=== PATIENT | male | born 1960 | race Caucasian/White ===

== ENCOUNTER 2020-12-16 12:54 | Outpatient (RCR) | payer MEDICARE, BC, SELFPAY ==
--- NOTE | 2020-12-16 16:13 | PCPTNOTE ---
Patient:Nura North Date of :1960 Wheelchair seating assessment [facility]. The patient has been evaluated for wheelchair seating and recommendations. However he does not qualify for the request power mobility device due to not meeting Medicare requirements. He house is not accessible for a power wheelchair in the house. Nor does he have a desire to use a wheelchair in the house. DME provider present for the assessment. No finding to send due to seating system and assessment not completed. Thank you for the referral. I agree with and certify that the following plan for DME equipment is medically necessary.
== END 2020-12-18 08:21 | disposition home or self-care (01) ==
LOC: ANHPT 12:54
PROVIDERS: PCP Family Medicine; Visit Provider Family Medicine
DX: Z46.89 Encounter for fitting and adjustment of other specified devices (principal); G62.9 Polyneuropathy, unspecified
CPT/HCPCS: 97162

== ENCOUNTER 2022-07-20 12:19 | Outpatient (CLI) | payer MEDICARE, BC, SELFPAY ==
--- NOTE | ~2022-07-20 | MR_ITS ---
EXAMINATION: MR cervical spine wo con DATE: 07/20/2022 13:26 INDICATION: Cervical radiculopathy TECHNIQUE: Magnetic resonance imaging (MRI) of the cervical spine was performed without intravenous c ontrast. Sequences included sagittal T2-weighted FSE, sagittal T2-weighted FS FSE, sagittal T1-weight ed FSE, axial MERGE and axial T2-weighted FSE. COMPARISON: 09/23/2018 FINDINGS: Evaluation the chest a mildly limited by some degree of motion artifact or blurring on multiple seque nces. Straightening of the normal cervical lordosis. Vertebral body heights are normal. Severe disc height loss and with associated mild fibrovascular degenerative endplate changes at C6-C7. Mild disc height loss at C4-C5 and C5-C6. Bone marrow signal is otherwise normal. Unchanged small focus of incr eased T2 signal at the right side of the cord at C4-C5 consistent with myelomalacia. No new cord lesi ons identified. Cervical soft tissues are unremarkable. The following disc levels are specifically di scussed: C2-C3: The disc does not extend beyond the endplate margin. There is mild bilateral uncovertebral primo nt osteoarthritis. There is mild bilateral facet joint osteoarthritis. There is no neural foraminal s tenosis. There is no central canal stenosis. C3-C4: Disc is minimally bulging at the left and right foraminal zones. There is moderate bilateral u ncovertebral joint osteoarthritis. There is mild left and moderate right facet joint osteoarthritis. There is mild bilateral neural foraminal stenosis. There is no central canal stenosis. C4-C5: Disc is bulging. There is severe bilateral uncovertebral joint osteoarthritis. There is mild l eft and moderate right facet joint osteoarthritis. There is mild bilateral neural foraminal stenosis. There is mild central canal stenosis. C5-C6: Disc is bulging. There is mild left and moderate right uncovertebral joint osteoarthritis. The re is mild to moderate bilateral facet joint osteoarthritis. There is moderate bilateral neural kavita inal stenosis. There is mild central canal stenosis. C6-C7: Disc is bulging. There is severe bilateral uncovertebral joint osteoarthritis. There is mild r ight and mild to moderate left facet joint osteoarthritis. There is moderate bilateral neural foramin al stenosis. There is mild central canal stenosis. C7-T1: The disc does not extend beyond the endplate margin. There is no uncovertebral joint osteoarth ritis. There is left and severe right facet joint osteoarthritis. There is mild bilateral neural fora manfred stenosis. There is no central canal stenosis. IMPRESSION: 1. Minimal progression of severe spondylosis with unchanged small focus of myelomalacia at the right side of the cord at C4-C5. Reviewed, dictated and finalized at location A. IMPRESSION: 1. Minimal progression of severe spondylosis with unchanged small focus of myel omalacia at the right side of the cord at C4-C5.
== END 2022-07-20 12:20 | disposition home or self-care (01) ==
PROVIDERS: PCP Family Medicine; Visit Provider Family Medicine
DX: M54.12 Radiculopathy, cervical region (principal); M43.02 Spondylolysis, cervical region
CPT/HCPCS: 72141

== ENCOUNTER 2022-09-15 11:13 | Observation (INO) | payer MEDICARE, BC, SELFPAY ==
[2022-09-15] VITALS (14 sets, daily range): BP systolic 117–199; BP diastolic 67–124; PULSE 63–85; RESP 12–22; TEMP 36.3–37.2; O2SAT 96–100; BMI 31.3
--- NOTE | ~2022-09-15 | XR_ITS ---
EXAMINATION: XR chest 1V portable Exam Date/Time: 09/15/2022 14:10 CDT HISTORY: weakness Comparison: 10/11/2004. RESULT: Lines, tubes, and devices: None. Lungs and pleura: Marked rightward rotation. No focal consolidation, large effusion, or large pneumo thorax. Cardiomediastinal silhouette: Grossly stable. Other: No acute osseous or upper abdominal finding. IMPRESSION: Exam limited by significant rightward rotation. Within that constraint, no acute cardiopulmonary proc ess is detected. Reviewed, dictated and finalized at location K. IMPRESSION: Exam limited by significant rightward rotation. Within that constraint, no acut e cardiopulmonary process is detected.
--- NOTE | 2022-09-15 13:00 | ECG_ITS ---
Measurements Intervals [place] Rate: 59 P: 27 [place]: 208 QRS: 68 QRSD: 115 T: 55 QT: 447 QTc: 445 Interpretive Statements SINUS BRADYCARDIA MODERATE INTRAVENTRICULAR CONDUCTION DELAY [110+ ms QRS DURATION] NO PREVIOUS ECG AVAILABLE FOR COMPARISON Electronically Signed On 09-15-2022 16:18:45 CDT by Martha Kelley M.D.
--- NOTE | 2022-09-15 13:07 | ED.WEAKNESS ---
HPI - Weakness General Chief complaint: Weakness Stated complaint: weakness/ uti Time Seen by Provider: 09/15/22 12:00 History of Present Illness HPI Narrative: Patient is a 62-year-old male with a history of hypertension, hyperlipidemia, depression presenting with generalized weakness. Patient's family members at bedside and states that the patient lives alone. States that he has been increasingly generally weak for the last several days. States that he was diagnosed with a UTI last week and he has now taken about 4 days of ciprofloxacin without improvement. States that he continues to urinate frequently. States that he has been struggling to get up to even use the restroom. States that he has not eaten for 2 days. Currently, the patient says that he feels generally exhausted. He denies any current pain. Related Data Home Medications Medication Instructions Recorded Confirmed alprazolam 0.5 mg tablet 0.5 mg PO TID PRN Anxiety 09/15/22 09/15/22 atenolol 25 mg tablet 25 mg PO DAILY 09/15/22 09/15/22 losartan 100 mg tablet 100 mg PO DAILY 09/15/22 09/15/22 paroxetine HCl 30 mg tablet 30 mg PO DAILY 09/15/22 09/15/22 simvastatin 20 mg tablet 20 mg PO DAILY 09/15/22 09/15/22 trazodone 150 mg tablet 150 mg PO HS 09/15/22 09/15/22 Allergies Allergy/AdvReac Type Severity Reaction Status Date / Time allopurinol Allergy Unknown Rash Verified 09/15/22 12:15 carbamazepine Allergy Unknown Rash Verified 09/15/22 12:15 cyclobenzaprine Allergy Unknown Rash Verified 09/15/22 12:15 diclofenac Allergy Unknown Rash Verified 09/15/22 12:15 Review of Systems Review of Systems: All systems reviewed & are unremarkable except as noted in HPI and below PMFSH Past Medical History Medical History (Updated 09/15/22 @ 21:42 by Jyothi Moy NP) Depression with anxiety Gout History of GI bleed History of meningitis Hyperlipidemia Hypertension Legally blind Left eye YOSEPH on CPAP Peripheral neuropathy Surgical History Surgical History (Updated 09/15/22 @ 21:29 by Jyothi Moy NP) H/O cataract extraction H/O hand surgery H/O inguinal hernia repair H/O Spinal surgery History of tonsillectomy Family History Family History Mother Patient's mother is in good health Father Patient's father is Grandparent Cerebrovascular accident Family history of malignant neoplasm Family history of heart disease in male family member before age 55 Other Diabetes mellitus Family history of alcoholism Family history of arthritis Family history of gout Social History Social History (Updated 09/15/22 @ 21:34 by Jyothi Moy NP) Social History: The patient lives home alone. He is a former smoker. The patient used to be heavy smoker smoking up to 2-3 packs of cigarettes for several years. The patient was known to drink 8-10 beers a day. He is retired and disabled in 1979. 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 Code status full code Smoking packs per day: 2 Smoking cigarettes per day: 40.0 Smoking status: Former smoker Second hand tobacco smoke exposure: No Smoking end date: 03/29/04 Alcohol intake: never Substance use: current Substance use type: painkillers Lack of Transportation: No Lack of Food: Never True Current Housing: Decline to Answer Concerned About Future Housing: Decline to Answer Difficulty Paying Gas/Electric Bills: Decline to Answer Difficulty Paying for Meds: Decline to Answer Currently Unemployed: Decline to Answer Education: Decline to Answer Difficulty w/ Childcare or Family Care: Decline to Answer Spiritual care concerns: No Exam Narrative: GENERAL: Chronically ill-appearing, no acute distress, pleasant and cooperative HEAD: Normocephalic, atraumatic. EYES: PERRLA and EOMI. ENT: Nares clear, no rhinorrhea or epistaxis. Mucous membranes moist. NECK: Supple. CHEST:
[2022-09-15 13:16] LABS: Appearance Urine Clear (Clear); Bacteria Urine None Seen /hpf; Bilirubin Urine Negative (Negative); Blood Urine 3+ (Negative); Color Urine Yellow (Yellow); Glucose Urine UA Negative (Negative); Ketones Urine Negative (Negative); Leukocyte Esterase Ur Negative LEU/UL (Negative); Nitrate Urine Negative (Negative); Non Pathogenic Casts 0-2; Protein Urine 2+ mg/dL (Negative); Specific Grav Ur 1.004 (1.001-1.035); Squamous Epithelial Cell Urine None seen /hpf (Few); Urobilinogen Urine 0.2 mg/dL (<2.0); WBC Urine 0-5 /hpf; pH Urine 7.5 (5.0-9.0)
[2022-09-15 13:18] LABS: Add Urine Microscopic? YES
[2022-09-15 14:04] LABS: Basophils Percent Auto 0.2 % (0.2-1.2); Eosinophils Absolute Auto 0.4 K/mm3 (0-0.3); Hematocrit 38.4 % (42.0-52.0); Hemoglobin 12.3 g/dL (14.0-18.0); Immature Granulocyte Absolute 0.02 K/mm3 (0.00-0.031); Immature Granulocyte Percent A 0.2 % (0-0.5); Lymphocytes Absolute Auto 1.59 K/mm3 (0.9-3.2); Lymphocytes Percent Auto 19.7 % (18.3-44.2); Mean Corpuscular Hemoglobin 28.5 pg (26-34); Mean Corpuscular Volume 88.9 fl (80-100); Mean Platelet Volume 9.5 fl (7.4-10.4); Monocytes Absolute Auto 0.7 K/mm3 (0.1-0.6); Neutrophils Absolute Auto 5.4 K/mm3 (1.3-6.7); Neutrophils Percent Auto 66.9 % (45.5-73.1); Platelet Count Result 231 k/mm3 (150-375); Red Blood Count 4.32 M/mm3 (4.6-6.20); Red Cell Distribution Width 14.2 % (11.5-14.5); White Blood Count 8.1 K/mm3 (4.5-10.0)
[2022-09-15 14:15] LABS: Alanine Aminotransferase 13 U/L (6-50); Albumin Level 4.4 g/dL (3.5-5.1); Alkaline Phosphatase 91 U/L (38-126); Anion Gap 10 mmol/L (8-16); Aspartate Amino Transferase 24 U/L (17-59); Bilirubin,Total 0.9 mg/dL (0.2-1.3); Blood Urea Nitrogen 20 mg/dL (9-20); Calcium 9.6 mg/dL (8.4-10.2); Carbon Dioxide 32 mmol/L (22-30); Chloride 99 mmol/L (98-107); Estimated Glomerular Filt Rate 27; Glucose 100 mg/dL (65-110); Lipase 271 U/L (23-300); Magnesium 1.5 mg/dL (1.6-2.3); Potassium 3.6 mmol/L (3.4-5.0); Sodium 141 mmol/L (137-145)
[2022-09-15 14:26] LABS: NT Pro B Type Natriuretic Pept 2370 pg/mL (19.9-100); Troponin I < 0.012 ng/mL (0.000-0.034)
[2022-09-15] MEDS: SODIUM CHLORIDE 0.9% IV 1,000 ML 999 ML IV CONT (16:00)
[2022-09-15 16:16] LABS: Creatine Kinase 31 U/L (55-170)
--- NOTE | 2022-09-15 17:13 | ADMGEN ---
This patient, Nura North, was admitted to Medical Room 345-. Patient/family oriented to hospital policies and general routines including ID bracelet, bed and alarms, visiting hours, pain management, procedures, bathroom and other care routines, personal items, smoking policy, room service/diet, and visiting hours. Information on how to activate the Rapid Response Team has been discussed. Patient/Family are encouraged to report perceived risks to care and to ask questions if they do not understand what they are told or what they should do.
[2022-09-15] MEDS: hydrALAZINE HCL 20 MG/ML VIAL 10 MG IV PUSH (17:40)
--- NOTE | 2022-09-15 17:56 | PM.IMHP ---
H&P: HPI History of Present Illness Date/Time: 09/15/22 17:56 Chief Complaint: Weakness Narrative: This is a 62-year-old male patient who has a history of hypertension and hyperlipidemia as well as depression. The patient came to the emergency room with complaints of generalized weakness. The family members stated that he lives home alone. He has been increasingly generally weak for the last several days. The patient was diagnosed with the UTI last week and has taken 4 days of ciprofloxacin without improvement. The patient has frequent urination. The patient has been struggling to get up from the restroom. Patient is eating very little for 2 days. He said he is just exhausted has no current pain. The patient is falling asleep during the interview and is not giving me much information. His H&H is 12.3 and 38.4 which is improved from 2019. His creatinine is 2.4 with this last read here on 06/11/2018 which was normal. Magnesium is 1.5 troponins are negative x2. His urine no longer shows a UTI. The patient is being admitted to observation status on the date of service of 09/15/2022. Review of Systems Review of Systems: All systems reviewed & are unremarkable except as noted in HPI and below Constitutional: Constitutional: Reports as per HPI and Reports no additional constitutional complaints Eyes: Eyes: Reports as per HPI and Reports no additional eye complaints ENT: Reports system reviewed and no additional complaints, except as documented and Reports Normal hearing present Cardiovascular: Cardiovascular: Reports no additional cardiovascular complaints Respiratory: Respiratory: Reports no additional respiratory complaints and Reports no additional respiratory complaints Gastrointestinal: Gastrointestinal: Reports as per HPI and Reports no additional gastrointestinal complaints Musculoskeletal: Musculoskeletal: Reports no additional musculoskeletal complaints Integumentary/Breasts: Skin/Breast: Reports system reviewed and no additional complaints, except as docu and Reports as per HPI Neurologic: Reports system reviewed and no additional complaints, except as documented, Reports as per HPI and Reports Normal hearing present Psychiatric: Psychiatric: Reports no additional psychiatric complaints and Reports as per HPI Endocrine: Endocrine: Reports no additional endocrine complaints Hematologic/Lymphatic: Hematologic/Lymphatic: Reports no additional hematologic/lymphatic complaints Allergic/Immunologic: Allergic/Immunologic: Reports no additional allergic/immunologic complaints FOR[facility] Past Medical History Medical History (Updated 09/15/22 @ 21:42 by Jyothi Moy NP) Depression with anxiety Gout History of GI bleed History of meningitis Hyperlipidemia Hypertension Legally blind Left eye YOSEPH on CPAP Peripheral neuropathy Surgical History Surgical History (Updated 09/15/22 @ 21:29 by Jyothi Moy NP) H/O cataract extraction H/O hand surgery H/O inguinal hernia repair H/O Spinal surgery History of tonsillectomy Family History Family History Mother Patient's mother is in good health Father Patient's father is Grandparent Cerebrovascular accident Family history of malignant neoplasm Family history of heart disease in male family member before age 55 Other Diabetes mellitus Family history of alcoholism Family history of arthritis Family history of gout Social History Social History (Updated 09/15/22 @ 21:34 by Jyothi Moy NP) Social History: The patient lives home alone. He is a former smoker. The patient used to be heavy smoker smoking up to 2-3 packs of cigarettes for several years. The patient was known to drink 8-10 beers a day. He is retired and disabled in 1979. His mother Zita leonard is his linesperson. Code status full code Smoking packs per day: 2 Smoking cigarettes per day:
[2022-09-15 18:11] LABS: Troponin I < 0.012 ng/mL (0.000-0.034)
[2022-09-15 21:46] LABS: Anion Gap 12 mmol/L (8-16); Blood Urea Nitrogen 20 mg/dL (9-20); Calcium 9.4 mg/dL (8.4-10.2); Carbon Dioxide 30 mmol/L (22-30); Chloride 102 mmol/L (98-107); Estimated CRCL calculation 34 ml/min; Estimated Glomerular Filt Rate 29; Glucose 105 mg/dL (65-110); Potassium 3.4 mmol/L (3.4-5.0); Sodium 144 mmol/L (137-145)
[2022-09-15] MEDS: traZODone HCL 50 MG TABLET 150 MG PO (21:53)
[2022-09-15] MEDS: SODIUM CHLORIDE 0.9% IV 1,000 ML 100 ML IV CONT (21:53)
[2022-09-15] MEDS: MAGNESIUM SULF 2 GM/WATER 50ML 2 GM/50 ML BAG IVPB (21:57)
[2022-09-15 22:02] LABS: Troponin I < 0.012 ng/mL (0.000-0.034)
[2022-09-16] MEDS: ALPRAZolam (*CRX) 0.5 MG TABLET PO (01:48)
[2022-09-16 05:35] VITALS: BP 165/83; PULSE 85; RESP 18; TEMP 37.4; O2SAT 97
[2022-09-16 06:03] LABS: Basophils Percent Auto 0.4 % (0.2-1.2); Eosinophils Absolute Auto 0.4 K/mm3 (0-0.3); Eosinophils Percent Auto 3.2 % (0-4.4); Hematocrit 39.1 % (42.0-52.0); Hemoglobin 12.6 g/dL (14.0-18.0); Immature Granulocyte Absolute 0.05 K/mm3 (0.00-0.031); Immature Granulocyte Percent A 0.4 % (0-0.5); Lymphocytes Percent Auto 12.3 % (18.3-44.2); Mean Corpuscular HGB Conc 32.2 g/dl (32-36); Mean Corpuscular Hemoglobin 28.3 pg (26-34); Mean Corpuscular Volume 87.9 fl (80-100); Mean Platelet Volume 9.7 fl (7.4-10.4); Monocytes Absolute Auto 0.8 K/mm3 (0.1-0.6); Monocytes Percent Auto 7.4 % (2.6-8.5); Neutrophils Absolute Auto 8.7 K/mm3 (1.3-6.7); Neutrophils Percent Auto 76.3 % (45.5-73.1); Platelet Count Result 252 k/mm3 (150-375); Red Blood Count 4.45 M/mm3 (4.6-6.20); White Blood Count 11.4 K/mm3 (4.5-10.0)
[2022-09-16 06:12] LABS: Lactic Acid Reflex 0.9 mmol/L (0.7-2.0)
[2022-09-16 06:13] LABS: Alanine Aminotransferase 12 U/L (6-50); Albumin Level 4.4 g/dL (3.5-5.1); Alkaline Phosphatase 99 U/L (38-126); Anion Gap 11 mmol/L (8-16); Aspartate Amino Transferase 26 U/L (17-59); Blood Urea Nitrogen 18 mg/dL (9-20); Calcium 9.1 mg/dL (8.4-10.2); Carbon Dioxide 27 mmol/L (22-30); Chloride 105 mmol/L (98-107); Estimated CRCL calculation 39 ml/min; Estimated Glomerular Filt Rate 34; Glucose 103 mg/dL (65-110); Magnesium 1.9 mg/dL (1.6-2.3); Potassium 3.3 mmol/L (3.4-5.0); Sodium 143 mmol/L (137-145)
[2022-09-16 06:57] LABS: Thyroid Stimulating Hormone Reflex 0.544 uIU/mL (0.465-4.68)
--- NOTE | 2022-09-16 08:02 | PC.NURSE ---
[id number] - pt continuing to set off bed alarm, saying I just have to get up. I have to get out of here. In report from curbstone setter, staff attempted to get pt to a commode x3 people with no success. RN and tech educated pt that he is a high fall risk and cannot be getting up out of bed by himself. RN stated that therapy is ordered and should be the one to get the pt out of bed to let us know how to safely ambulate pt. Pt A&O x3 but is not understanding this information as every couple minutes he is attempting to get up and leave. Pt bed alarm is set on zone 2. RN called hosptialist, shasta, and notified director, yakov. [phone] - RN called pt mother, Zita, via phone regarding this situation. Zita stated she is on her way to the hospital to sit with the pt and try to talk with him about this.
--- NOTE | 2022-09-18 07:54 | PM.DS ---
DS: Admitting Diagnosis Discharge Date 09/16/22 Admitting Diagnosis BOAZ DS: Summary Hospital Course Hospital Course: Date of service: 09/16/22 The patient signed out against medical advice on 09/16/22. Spoke with RN at [phone] to inform patient requesting to sign out AMA. Left with his mother. Patient departed prior to my evaluation. Time Spent with Patient Time attestation: Total time spent providing and/or coordinating discharge services: Discharge Plan Discharge Consulting providers: Jyothi Moy; Raphael Leach; Martha Kelley Patient Disposition: Left Against Medical Advice Discharge Medications: No Action atenolol 25 mg tablet 25 mg PO DAILY alprazolam 0.5 mg tablet 0.5 mg PO TID PRN (Reason: Anxiety) paroxetine HCl 30 mg tablet 30 mg PO DAILY simvastatin 20 mg tablet 20 mg PO DAILY trazodone 150 mg tablet 150 mg PO HS losartan 100 mg tablet 100 mg PO DAILY Date of admission: 09/15/22 15:50 Primary Care Provider: Rylee,Evelio Hidalgo Admitting Provider: Aryan Link Attending physician on admission: Melita Ewing Condition: Stable
== END 2022-09-16 08:54 | disposition left against medical advice (07) ==
LOC: ANHED 12:28 → ANH3MED 16:39
PROVIDERS: Nurse Practitioner; Admitting Provider Chiropractor; Emergency Provider Emergency Medicine; PCP Family Medicine; Visit Provider Physician Assistant
DX: N17.9 Acute kidney failure, unspecified (principal); Z53.29 Procedure and treatment not carried out because of patient's decision for other reasons; R53.1 Weakness; R00.1 Bradycardia, unspecified; R35.0 Frequency of micturition; I10 Essential (primary) hypertension; E78.5 Hyperlipidemia, unspecified; F41.8 Other specified anxiety disorders; R79.89 Other specified abnormal findings of blood chemistry; F10.90 Alcohol use, unspecified, uncomplicated; I44.0 Atrioventricular block, first degree; R63.0 Anorexia; G47.33 Obstructive sleep apnea (adult) (pediatric); G62.9 Polyneuropathy, unspecified; Z68.31 Body mass index [BMI] 31.0-31.9, adult; Z87.891 Personal history of nicotine dependence; Z79.899 Other long term (current) drug therapy
CPT/HCPCS: 36415; 71045; 80048; 80053; 81001; 82550; 83605; 83690; 83735; 83880; 84443; 84484; 85025; 93005; 96374; 96375; 99285; A9270; G0378; J0360; J3475; J7030

== ENCOUNTER 2022-10-05 14:02 | Outpatient (CLI) | payer MEDICARE, BC, SELFPAY ==
--- NOTE | ~2022-10-05 | CT_ITS ---
EXAMINATION: CT cervical spine wo con DATE: 10/05/2022 14:36 INDICATION: Cervical stenosis of spinal canal. TECHNIQUE: Computed tomography (CT) of the cervical spine was performed without intravenous contrast. Automated exposure control and iterative reconstruction technique were employed. The dose-length pro duct was 594.24 mGy-cm. COMPARISON: CT cervical spine 05/28/2018 FINDINGS: There is 7 degrees levocurvature of cervical spine. There is mild kyphosis of cervical spin e. Vertebral body heights are normal. There is mildly decreased disc height at C4-C5 and C5-C6 and se verely decreased disc height at C6-C7. Osseous central spinal canal is developmentally small from C4 to C7. The following disc levels are specifically discussed: C2-C3: There is mild bilateral uncovertebral joint osteoarthritis. There is mild bilateral facet join t osteoarthritis. There is no neural foraminal stenosis. There is no central canal stenosis. C3-C4: There is mild bilateral uncovertebral joint osteoarthritis. There is no facet joint osteoarthr itis. There is mild bilateral neural foraminal stenosis. There is no central canal stenosis. C4-C5: There is mild bilateral uncovertebral joint osteoarthritis. There is severe right and moderate left facet joint osteoarthritis. There is mild right neural foraminal stenosis. There is mild centra l canal stenosis. C5-C6: There is mild bilateral uncovertebral joint osteoarthritis. There is mild bilateral facet join t osteoarthritis. There is mild right neural foraminal stenosis. There is moderate central canal sten osis. C6-C7: There is severe bilateral uncovertebral joint osteoarthritis. There is mild bilateral facet lavinia int osteoarthritis. There is mild bilateral neural foraminal stenosis. There is moderate central amy l stenosis. C7-T1: There is no uncovertebral joint osteoarthritis. There is severe bilateral facet joint osteoart hritis. There is mild bilateral neural foraminal stenosis. There is no central canal stenosis. IMPRESSION: 1. Severe cervical spondylosis, stable from 05/28/18. Reviewed, dictated and finalized at location E.
== END 2022-10-05 14:03 | disposition home or self-care (01) ==
PROVIDERS: PCP Family Medicine; Visit Provider Nurse Practitioner Adult Health
DX: M48.02 Spinal stenosis, cervical region (principal); G95.9 Disease of spinal cord, unspecified; M47.892 Other spondylosis, cervical region
CPT/HCPCS: 72125

== ENCOUNTER 2023-03-05 08:00 | Outpatient (CLI) | payer MEDICARE, BC, SELFPAY ==
--- NOTE | ~2023-03-05 | XR_ITS ---
EXAMINATION: XR lg joint inject/asp w image DATE: 03/05/2023 09:53 INDICATION: Left hip arthritis TECHNIQUE: A time-out was performed to verify the patient's name, date of , and procedure to b e performed. The procedure including the risks, benefits, and alternatives was discussed with the pat ient. Risks discussed included bleeding and infection. The patient understood the risks and agreed to proceed. The skin overlying the left hip joint was prepped and draped in usual sterile fashion. An esthetic was administered with 1% lidocaine subcutaneously. A 22 G needle was advanced under fluoros copic guidance into the joint. Injection of 1 mL of Omnipaque 240 confirmed intra-articular position of the needle. Subsequently, injectate consisting of 3 mL of a 2:1 mixture of 0.5% Sensorcaine: 80 mg/mL Depo-Medrol for a total dosage of 80 mg Depo-Medrol was instilled. Washout of contrast was seen confirming intra-articular administration. The needle was removed and the entry site was cleaned and dressed. There were no immediate complications. Fluoroscopy exposure time was 0.3 minutes. The tota l number of images was 3. FINDINGS: Real-time fluoroscopy demonstrates the needle in the left hip joint. Patient's pain prior t o procedure:01/05. Patient's pain following the procedure: 11/05. IMPRESSION: 1. Successful left hip joint injection of local anesthetic and steroid with minimal decrease in the p atient's presenting pain. Reviewed, dictated and finalized at location A. [employer] IMPRESSION: 1. Successful left hip joint injection of local anesthetic and steroid with min imal decrease in the patient's presenting pain.
== END 2023-03-05 08:01 | disposition home or self-care (01) ==
PROVIDERS: PCP Family Medicine; Visit Provider Orthopaedic Surgery
DX: M16.12 Unilateral primary osteoarthritis, left hip (principal)
CPT/HCPCS: 20610; 77002; J1040; Q9966

== ENCOUNTER 2023-03-08 13:35 | Inpatient (IN) | payer MEDICARE, BC, SELFPAY ==
[2023-03-08] VITALS (28 sets, daily range): BP systolic 148–188; BP diastolic 73–89; PULSE 50–69; RESP 13–18; TEMP 36.4–36.6; O2SAT 98–100; BMI 40.3
--- NOTE | ~2023-03-08 | CT_ITS ---
EXAMINATION: CT abdomen pelvis wo con DATE: 03/10/2023 12:48 INDICATION: Hematuria. TECHNIQUE: Computed tomography (CT) of the abdomen and pelvis was performed without intravenous contr ast. Automated exposure control and iterative reconstruction technique were employed. The dose-length product was 1481.08 mGy-cm. COMPARISON: None. FINDINGS: The visualized portions of the lung bases demonstrate minimal atelectasis on the right. No pleural effusion. Cardiomegaly is noted. There are coronary artery calcifications. No pericardial eff usion. The liver, spleen, gallbladder, pancreas, and adrenal glands are normal. There is wall thicken ing of the proximal duodenum with surrounding fat stranding. There is cortical thinning of the kidney s. There is moderate bilateral hydronephrosis and hydroureter. The bladder is decompressed by a Durant catheter. There is diffuse bladder wall thickening. There is fat stranding around the bladder. The p rostate is mildly enlarged. There is liquid stool in the colon suggesting diarrhea. The appendix is n ormal. There are no dilated loops of bowel. There is calcified atherosclerosis of the aorta and many of the other arteries. There are no pathologically enlarged lymph nodes. There is prominent fat in le ft inguinal canal that may be a hernia. There is no free intraperitoneal fluid. There are widespread arterial calcifications. There is mild chronic height loss of multiple vertebral bodies. There is sev ere lumbar spondylosis and moderate thoracic spondylosis. There are changes of posterior fusion proce dure from L3 to L5. IMPRESSION: 1. Moderate bilateral hydronephrosis and hydroureter. Cortical thinning of the kidneys. 2. Diffuse bladder wall thickening, which may be secondary to chronic outlet obstruction, cystitis, o r neurogenic bladder. 3. Duodenal wall thickening with surrounding fat stranding, consistent with duodenitis. Reviewed, dictated and finalized at location A. FICATION OPERATOR HELPER IMPRESSION: 1. Moderate bilateral hydronephrosis and hydroureter. Cortical thinning of the kidneys. 2. Diffuse bladder wall thickening, which may be secondary to chronic outlet ob struction, cystitis, or neurogenic bladder. 3. Duodenal wall thickening with surrounding fat stranding, consistent with duo denitis.
--- NOTE | ~2023-03-08 | US_ITS ---
EXAMINATION: US renal BI DATE: 03/12/2023 14:01 INDICATION: Hydronephrosis TECHNIQUE: Multiple grayscale and Doppler ultrasound images of the kidneys were obtained. COMPARISON: CT, 03/10/2023 FINDINGS: The right kidney measures 9.4 x 4.8 x 4.2 cm. The left kidney measures 11.5 x 4.6 x 4.7 cm. The kidneys demonstrate normal parenchymal echogenicity. There is mild cortical thinning of the kidn eys. There is mild left hydronephrosis. The bladder is decompressed by Durant catheter. There is uncha nged circumferential wall thickening of the urinary bladder. IMPRESSION: 1. Mild hydronephrosis of the left kidney. 2. Diffuse wall thickening of the urinary bladder which could reflect cystitis, chronic outlet obstru ction, or possibly neurogenic bladder. Reviewed, dictated and finalized at location B. SPECIALIST IMPRESSION: 1. Mild hydronephrosis of the left kidney. 2. Diffuse wall thickening of the urinary bladder which could reflect cystitis, chronic outlet obstruction, or possibly neurogenic bladder.
--- NOTE | 2023-03-08 13:40 | ECG_ITS ---
Measurements Intervals [place] Rate: 54 P: 36 [place]: 208 QRS: 66 QRSD: 112 T: 55 QT: 460 QTc: 440 Interpretive Statements SINUS BRADYCARDIA MODERATE INTRAVENTRICULAR CONDUCTION DELAY [110+ ms QRS DURATION] BORDERLINE ECG COMPARED TO ECG 09/15/2022 11:19:27 NO SIGNIFICANT CHANGES Electronically Signed On 03-08-2023 14:58:52 WOOL CLEANER by Aryan Zeng M.D.
[2023-03-08 14:08] LABS: Appearance Urine Clear (Clear); Bacteria Urine None Seen /hpf; Basophils Percent Auto 0.1 % (0.2-1.2); Bilirubin Urine Negative (Negative); Blood Urine Trace (Negative); Color Urine Yellow (Yellow); Eosinophils Absolute Auto 0.1 K/mm3 (0-0.3); Eosinophils Percent Auto 0.5 % (0-4.4); Glucose Urine UA Negative (Negative); Hematocrit 32.9 % (42.0-52.0); Hemoglobin 10.6 g/dL (14.0-18.0); Immature Granulocyte Absolute 0.05 K/mm3 (0.00-0.031); Immature Granulocyte Percent A 0.5 % (0-0.5); Ketones Urine Negative (Negative); Leukocyte Esterase Ur Trace LEU/UL (Negative); Lymphocytes Absolute Auto 1.88 K/mm3 (0.9-3.2); Lymphocytes Percent Auto 18.7 % (18.3-44.2); Mean Corpuscular HGB Conc 32.2 g/dl (32-36); Mean Corpuscular Hemoglobin 28.9 pg (26-34); Mean Corpuscular Volume 89.6 fl (80-100); Mean Platelet Volume 10.9 fl (7.4-10.4); Monocytes Absolute Auto 1.1 K/mm3 (0.1-0.6); Monocytes Percent Auto 10.6 % (2.6-8.5); Neutrophils Percent Auto 69.6 % (45.5-73.1); Nitrate Urine Negative (Negative); Non Pathogenic Casts 0-2; Platelet Count Result 215 k/mm3 (150-375); Protein Urine Negative (Negative); RBC Urine 0-2 /hpf (0-2); Red Blood Count 3.67 M/mm3 (4.6-6.20); Red Cell Distribution Width 14.5 % (11.5-14.5); Specific Grav Ur 1.005 (1.001-1.035); Squamous Epithelial Cell Urine None seen /hpf (Few); Urobilinogen Urine 0.2 mg/dL (<2.0); WBC Urine 0-5 /hpf; pH Urine 5.5 (5.0-9.0)
[2023-03-08 14:13] LABS: Add Urine Microscopic? YES
[2023-03-08 14:15] LABS: Alanine Aminotransferase 16 U/L (6-50); Alkaline Phosphatase 85 U/L (38-126); Anion Gap 9 mmol/L (8-16); Aspartate Amino Transferase 23 U/L (17-59); Bilirubin,Total 0.7 mg/dL (0.2-1.3); Blood Urea Nitrogen 31 mg/dL (9-20); Calcium 8.6 mg/dL (8.4-10.2); Carbon Dioxide 22 mmol/L (22-30); Chloride 97 mmol/L (98-107); Estimated CRCL calculation 47 ml/min; Estimated Glomerular Filt Rate 36; Glucose 89 mg/dL (65-110); Lactic Acid Reflex 1.4 mmol/L (0.7-2.0); Potassium 4.6 mmol/L (3.4-5.0); Sodium 128 mmol/L (137-145)
[2023-03-08 14:27] LABS: Acetaminophen 172 ug/mL (10-30); Ethanol 51 mg/dL (<10); Salicylate < 1.0 mg/dL (2-20)
--- NOTE | 2023-03-08 14:29 | PC.NURSE ---
Pts Poison Control case #[id number]
[2023-03-08 14:30] LABS: Amphetamine Screen Urine Negative (Negative); Barbiturate Screen Urine Negative (Negative); Benzodiazepines Screen Urine Positive (Negative); Cannabinoid Screen Urine Negative (Negative); Cocaine Screen Urine Negative (Negative); Methadone Screen Urine Negative (Negative); Opiate Screen Urine Negative (Negative); Phencyclidine Screen Urine Negative (Negative)
--- NOTE | 2023-03-08 14:36 | ED.OVERDOSE ---
HPI - Overdose General Chief Complaint: Overdose <Kimber King PA-C - Last Filed: 03/08/23 17:00> Stated Complaint: Tylenol OD <Kimber King PA-C - Last Filed: 03/08/23 17:00> Time Seen by Provider: 03/08/23 13:41 <Kimber King PA-C - Last Filed: 03/08/23 17:00> Source: patient <MARK ANTHONY Wetzel Last Filed: 03/08/23 17:00> Mode of arrival: ambulatory <Kimber King PA-C - Last Filed: 03/08/23 17:00> Limitations: no limitations <Kimber King PA-C - Last Filed: 03/08/23 17:00> History of Present Illness HPI Narrative: This is a 63-year-old male that presents to the emergency department for overdose. Reports about 2 hours prior to arrival he took about 100 extra strength Tylenol tablets. Reports he was doing this to kill himself. Reports recent stressors lately and he wants to go to sleep and not wake up. He called his brother who called EMS. Denies any current symptoms. <Kimber King PA-C - Last Filed: 03/08/23 17:00> Related Data Home Medications: Home Medications Medication Instructions Recorded Confirmed alprazolam 0.5 mg tablet 0.5 mg PO TID PRN Anxiety 09/15/22 02/26/23 atenolol 25 mg tablet 25 mg PO DAILY 09/15/22 02/26/23 losartan 100 mg tablet 100 mg PO DAILY 09/15/22 02/26/23 paroxetine HCl 30 mg tablet 30 mg PO DAILY 09/15/22 02/26/23 simvastatin 20 mg tablet 20 mg PO DAILY 09/15/22 02/26/23 trazodone 150 mg tablet 150 mg PO HS 09/15/22 02/26/23 <MARK ANTHONY Wetzel Last Filed: 03/08/23 17:00> Allergies/Adverse Reactions: Allergies Allergy/AdvReac Type Severity Reaction Status Date / Time allopurinol Allergy Unknown Rash Verified 02/25/23 12:41 carbamazepine Allergy Unknown Rash Verified 02/25/23 12:41 cyclobenzaprine Allergy Unknown Rash Verified 02/25/23 12:41 diclofenac Allergy Unknown Rash Verified 02/25/23 12:41 <Kimber King PA-C - Last Filed: 03/08/23 17:00> Review of Systems Review of Systems: CONSTITUTIONAL: Denies fever CARDIOVASCULAR: Denies chest pain GASTROINTESTINAL: Denies abdominal pain PSYCHIATRIC: Reports depression. <Kimber King PA-C - Last Filed: 03/08/23 17:00> All systems reviewed & are unremarkable except as noted in HPI and below <Kimber King PA-C - Last Filed: 03/08/23 17:00> [facility] Past Medical History Medical History: Medical History Depression with anxiety Gout History of GI bleed History of meningitis Hyperlipidemia Hypertension Legally blind Left eye YOSEPH on CPAP Peripheral neuropathy <Kimber King PA-C - Last Filed: 03/08/23 17:00> Surgical History Surgical History: Surgical History H/O cataract extraction H/O hand surgery H/O inguinal hernia repair H/O Spinal surgery History of tonsillectomy <Kimber King PA-C - Last Filed: 03/08/23 17:00> Family History Family History: Family History (Updated 03/04/23 @ 10:57 by Ghazal Lim CMA) Mother Patient's mother is in good health Father Patient's father is Grandparent Cerebrovascular accident Family history of malignant neoplasm Family history of heart disease in male family member before age 55 Unknown Hypertension Lung disease Hyperlipidemia Cancer Other Diabetes mellitus Family history of alcoholism Family history of arthritis Family history of gout <Kimber King PA-C - Last Filed: 03/08/23 17:00> Social History Social History: Social History (Updated 03/04/23 @ 10:58 by Ghazal Lim [employer]ING [employer]ANDER) Social History: The patient lives home alone. He is a former smoker. The patient used to be heavy smoker smoking up to 2-3 packs of cigarettes for several years. The patient was known to drink 8-10 beers a day. He is retired and disabled in 1979. His mother Zita leonard is his slot key person. Code status
[2023-03-08 14:39] LABS: Influenza A QL RT-PCR Negative (Negative); Influenza B QL RT-PCR Negative (Negative); RSV RNA, RT-PCR Negative (Negative); SARS-CoV-2 RNA PCR Negative (Negative)
[2023-03-08 14:56] LABS: INR 1.1
[2023-03-08 14:58] LABS: Thyroid Stimulating Hormone Reflex 0.401 uIU/mL (0.465-4.68)
[2023-03-08] MEDS: SODIUM CHLORIDE 0.9% IV 500 ML 999 ML IV CONT (15:18)
[2023-03-08] MEDS: ACETYLCYSTEINE IV 15,000 MG in DEXTROSE 5% IN WATER 200 ML 275 MG IVPB (15:23)
[2023-03-08 15:31] LABS: Free T4 Free Thyroxine Reflex 1.45 ng/dL (0.78-2.19)
[2023-03-08] MEDS: ACETYLCYSTEINE IV 5,000 MG in DEXTROSE 5% IN WATER 500 ML 131.25 MG IVPB (16:43)
--- NOTE | 2023-03-08 17:23 | PM.IMHP ---
H&P: HPI History of Present Illness Date/Time: 03/08/23 17:30 Chief Complaint: Intentional acetaminophen overdose. Narrative: This is a 63-year-old male with history of traumatic brain injury, seizure, sleep apnea, hypertension, hyperlipidemia, oral cancer, anemia, chronic kidney disease, and depression who presented to the emergency department via EMS for evaluation after intentional acetaminophen overdose. The patient provides the following history however he is not the greatest historian. 2 hours prior to arrival he reportedly took 100 extra strength Tylenol tablets in an attempt to take his own life. He reports recent stressors but he does not elaborate. He was remorseful, called his brother, and came in for evaluation. He is no longer suicidal. He was afebrile on arrival to the ED with blood pressures in the 150s to 160s and a pulse which has been steady in the 50s. Labs were significant for a chronic and stable anemia, sodium 128, chloride 97, BUN 31, creatinine 1.90, and acetaminophen level of 172. Urine drug screen was positive for benzodiazepines and ethyl alcohol level was 51. Poison Control was contacted and he has been started on N-acetylcysteine. Repeat acetaminophen level was actually higher than the initial level and poison Control recommends starting him on high-dose N-acetylcysteine. He is being admitted in this setting for close monitoring. Review of Systems Review of Systems: Twelve systems were reviewed. He denies fever, chills, and sweats. No recent cold or flu symptoms. Denies chest pain shortness a breath. No nausea or vomiting. Denies dysuria and diarrhea. No abdominal pain. Except as documented, all other systems were reviewed and are negative. [facility] Past Medical History Medical History (Updated 03/08/23 @ 23:32 by Jennifer Sarkar PA-C) Chronic kidney disease Chronic pain syndrome Depression with anxiety Gout History of GI bleed History of meningitis Hyperlipidemia Hypertension Legally blind Left eye YOSEPH on CPAP Peripheral neuropathy Surgical History Surgical History H/O cataract extraction H/O hand surgery H/O inguinal hernia repair H/O Spinal surgery History of tonsillectomy Family History Family History Mother Patient's mother is in good health Father Patient's father is Grandparent Cerebrovascular accident Family history of malignant neoplasm Family history of heart disease in male family member before age 55 Unknown Hypertension Lung disease Hyperlipidemia Cancer Other Diabetes mellitus Family history of alcoholism Family history of arthritis Family history of gout Social History Social History (Updated 03/08/23 @ 23:25 by Jennifer Sarkar PA-C) Social History: The patient lives home alone. He is a former smoker. The patient used to be heavy smoker smoking up to 2-3 packs of cigarettes for several years. The patient was known to drink 8-10 beers a day, states he drinks less than that now and not every day. He is retired and disabled in 1979. His mother Zita leonard is his salesperson fashion accessories. Code status full code Smoking packs per day: 3 Smoking cigarettes per day: 60.0 Years smoked: 15 Smoking pack-years: 45.00 Smoking status: Former smoker Tobacco type: cigarettes Second hand tobacco smoke exposure: No Smoking end date: 03/29/04 Additional smoking assessment comments: CURRENT: SMOKELESS TOBACCO (01/2023) Alcohol intake: former Substance use type: prescription drug Other substance usage details: oxycodone Last use: t-1 Lack of Transportation: YES Lack of Food: Never True Current Housing: I Have Housing Concerned About Future Housing: No Difficulty Paying Gas/Electric Bills: No Difficulty Paying for Meds: No Currently Unemployed: No Education: High School Diploma/G
[2023-03-08 18:39] LABS: Total Triiodothyronine (T3) 0.71 NG/ML (0.97-1.69)
[2023-03-08 18:58] LABS: Acetaminophen 187 ug/mL (10-30)
--- NOTE | 2023-03-08 19:53 | PC.NURSE ---
This Rn spoke with poison control @1913. Poison control reports pt is in high risk category, states pt should be started on a 16hr continuous dose of Acetadote immediately following the current dose. CMP, Coags, and tylenol levels should be drawn at 0700 on 03/09. This RN to update hospitalist with this information.
--- NOTE | 2023-03-08 20:04 | PC.NURSE ---
Poison control called back @1999 and reported a change in recommendation. Pt to receive the highest dose of Acetadote 25grams/20 hours, tylenol should be drawn every 4 hours till it starts to trend downward. Coags, cmp, Lactate, and phosphate to be drawn 8 hours after the last draw.
--- NOTE | 2023-03-08 21:10 | ADMGEN ---
This patient, Nura North, was admitted to Intensive Care Unit-3. Patient/family oriented to hospital policies and general routines including ID bracelet, bed and alarms, visiting hours, pain management, procedures, bathroom and other care routines, personal items, smoking policy, room service/diet, and visiting hours. Information on how to activate the Rapid Response Team has been discussed. Patient/Family are encouraged to report perceived risks to care and to ask questions if they do not understand what they are told or what they should do.
[2023-03-08 22:46] LABS: Acetaminophen 122 ug/mL (10-30)
[2023-03-08 23:20] LABS: Alanine Aminotransferase 18 U/L (6-50); Albumin Level 3.7 g/dL (3.5-5.1); Alkaline Phosphatase 46 U/L (38-126); Anion Gap 13 mmol/L (8-16); Aspartate Amino Transferase 24 U/L (17-59); Bilirubin,Total 0.5 mg/dL (0.2-1.3); Blood Urea Nitrogen 30 mg/dL (9-20); Calcium 8.1 mg/dL (8.4-10.2); Carbon Dioxide 20 mmol/L (22-30); Chloride 99 mmol/L (98-107); Estimated CRCL calculation 55 ml/min; Estimated Glomerular Filt Rate 44; Glucose 98 mg/dL (65-110); Lactate Dehydrogenase 126 U/L (120-246); Potassium 4.4 mmol/L (3.4-5.0); Sodium 132 mmol/L (137-145)
[2023-03-08 23:21] LABS: INR 1.3; Prothrombin Time 16.8 Seconds (11.1-14.7)
[2023-03-08 23:22] LABS: Partial Thromboplastin Time 33.7 SECONDS (22.3-36.8)
[2023-03-09] VITALS (16 sets, daily range): BP systolic 160–199; BP diastolic 66–102; PULSE 51–88; RESP 13–22; TEMP 36.3–37.4; O2SAT 96–99
[2023-03-09] MEDS: hydrALAZINE HCL 25 MG TABLET PO ×4 (00:06→16:03)
[2023-03-09] MEDS: TAMSULOSIN HCL 0.4 MG CAPSULE PO ×2 (00:09→20:29)
[2023-03-09] MEDS: ESCITALOPRAM OXALATE 5 MG TABLET 15 MG PO ×2 (00:12→20:30)
[2023-03-09 04:41] LABS: Hemoglobin 11.7 g/dL (14.0-18.0); Mean Corpuscular HGB Conc 33.4 g/dl (32-36); Mean Corpuscular Hemoglobin 29.3 pg (26-34); Mean Corpuscular Volume 87.5 fl (80-100); Mean Platelet Volume 10.3 fl (7.4-10.4); Platelet Count Result 215 k/mm3 (150-375); Red Cell Distribution Width 13.9 % (11.5-14.5); White Blood Count 10.2 K/mm3 (4.5-10.0)
[2023-03-09 04:52] LABS: Alanine Aminotransferase 19 U/L (6-50); Albumin Level 3.8 g/dL (3.5-5.1); Alkaline Phosphatase 51 U/L (38-126); Anion Gap 10 mmol/L (8-16); Aspartate Amino Transferase 24 U/L (17-59); Bilirubin,Total 0.6 mg/dL (0.2-1.3); Blood Urea Nitrogen 28 mg/dL (9-20); Calcium 8.5 mg/dL (8.4-10.2); Carbon Dioxide 22 mmol/L (22-30); Chloride 102 mmol/L (98-107); Estimated CRCL calculation 52 ml/min; Estimated Glomerular Filt Rate 41; Glucose 110 mg/dL (65-110); Magnesium 1.8 mg/dL (1.6-2.3); Potassium 4.7 mmol/L (3.4-5.0); Sodium 134 mmol/L (137-145)
[2023-03-09] MEDS: atenoloL 25 MG TABLET PO (08:20)
[2023-03-09] MEDS: PARoxetine 10 MG TABLET 30 MG PO (08:20)
[2023-03-09] MEDS: LOSARTAN POTASSIUM 100 MG TABLET PO (08:21)
[2023-03-09] MEDS: TIMOLOL MALEATE 0.5% OP SOLN 5 ML BOTTLE 1 DROP EACH EYE (08:21)
--- NOTE | 2023-03-09 09:58 | ECG_ITS ---
Measurements Intervals [place] Rate: 56 P: 94 SD: 200 QRS: 67 QRSD: 110 T: 65 QT: 443 QTc: 431 Interpretive Statements SINUS BRADYCARDIA WITH SINUS ARRHYTHMIA OTHERWISE NORMAL ECG COMPARED TO ECG 03/08/2023 13:43:15 SINUS ARRHYTHMIA NOW PRESENT Electronically Signed On 03-10-2023 10:26:20 STEAM PRESSURE CHAMBER OPERATOR by Tk Carver M.D.
--- NOTE | 2023-03-09 10:06 | PM.IMPN ---
Progress Note: A&P Assessment and Plan (1) Blood alcohol level of 40-59 mg/100 ml: Code(s): Y90.2 - Blood alcohol level of 40-59 mg/100 ml Status: Acute (2) Depression: Code(s): F32.A - Depression, unspecified Status: Acute (3) Intentional acetaminophen overdose: Code(s): T39.1X2A - Poisoning by 4-Aminophenol derivatives, intentional self-harm, initial encounter Status: Acute Plan Pt is high risk. He appears to have a chronic neurocognitive disorder. His answers are not straightforward and remains at high risk for repeated suicide attempt. It is unclear if he has been taking his medications, apparently his PCP prescribed his antidepressants. needs further psychiatric evaluation of depression, possibly ECT or other advanced therapies at this point. He was near successful suicide with a large acetaminophen overdose. He also could not go home safely with home medications like oxycodone, paroxetine, pregabalin, trazodone, xanax, and lexapro. When medically clear he requires transfer to inpatient psych facility. repeat cmp INR ekg and acetaminophen level. so far stable. ctm. hypertension, uncontrolled. hydralazine prn for this full code guarded. plan discussed with nurse More than 35 minutes spent on chart review, patient interaction and assessment and plan. Subjective Date/time seen: 03/09/23 10:06 Interval history: naoe. patient is resting comfortably in bed. he has unreliable responses. he says he doesn't want to kill himself anymore but reports he has no existence left in this world. Review of Systems Review of Systems: All systems reviewed & are unremarkable except as noted in HPI and below Exam Const: General: comfortable and no acute distress Other: obese Eyes: Pupils: Equal, round and reactive pupils present Cardio: Rate: regular rate Rhythm: regular rhythm Heart sounds: no gallops, no murmurs and no rubs GI: GI Palp: Yes Soft to palpation and No Tenderness to palpation present (GI) Extrem: General: no edema Objective Data Vital Signs Vital Signs: Vital Signs - 24 hr 03/08/23 13:31 03/08/23 13:41 03/08/23 14:41 Temperature 97.6 F Pulse Rate 69 53 L Respiratory Rate 18 16 17 Blood Pressure Pulse Oximetry 98 99 Oxygen Delivery Room Air 03/08/23 14:45 03/08/23 14:47 03/08/23 15:10 Temperature Pulse Rate 54 L 54 L 53 L Respiratory Rate 16 15 15 Blood Pressure 152/78 H Pulse Oximetry 98 98 99 Oxygen Delivery 03/08/23 15:15 03/08/23 15:18 03/08/23 15:30 Temperature Pulse Rate 52 L 53 L 53 L Respiratory Rate 14 13 17 Blood Pressure 148/73 H Pulse Oximetry 100 Oxygen Delivery 03/08/23 15:53 03/08/23 16:01 03/08/23 16:02 Temperature Pulse Rate 52 L 52 L 52 L Respiratory Rate 16 17 17 Blood Pressure 165/75 H Pulse Oximetry 100 100 Oxygen Delivery 03/08/23 16:33 03/08/23 16:49 03/08/23 17:12 Temperature Pulse Rate 50 L 54 L 53 L Respiratory Rate 16 14 14 Blood Pressure 165/82 H Pulse Oximetry 100 100 Oxygen Delivery 03/08/23 17:15 03/08/23 17:30 03/08/23 17:45 Temperature Pulse Rate 53 L 52 L 53 L Respiratory Rate 16 17 17 Blood Pressure Pulse Oximetry Oxygen Delivery 03/08/23 17:48 03/08/23 18:00 03/08/23 18:02 Temperature Pulse Rate 52 L 58 L 53 L Respiratory Rate 17 14 15 Blood Pressure 177/77 H 160/79 H Pulse Oximetry Oxygen Delivery 03/08/23 18:15 03/08/23 18:49 03/08/23 19:00 Temperature Pulse Rate 59 L 56 L 57 L Respiratory Rate 16 16 15 Blood Pressure Pulse Oximetry Oxygen Delivery 03/08/23 19:57 03/08/23 20:43 03/08/23 21:30 Temperature Pulse Rate 58 L 53 L 60 Respiratory Rate 16 15 13 Blood Pressure 178/80 H 180/81 H Pulse Oximetry 100 100 100 Oxygen Delivery Room Air 03/09/23 00:00 03/08/23 21:30 03/09/23 00:00 Temperature 97.8 F 98.0 F Pulse Rate 51 L 60 51 L Respiratory Rate 17 13 1
[2023-03-09] MEDS: hydrALAZINE HCL 20 MG/ML VIAL 5 MG IV PUSH ×3 (11:00→20:30)
[2023-03-09] MEDS: ALPRAZolam (*CRX) 0.5 MG TABLET PO ×2 (13:10→20:30)
[2023-03-09 15:18] LABS: Acetaminophen < 10 ug/mL (10-30); Alanine Aminotransferase 19 U/L (6-50); Alkaline Phosphatase 64 U/L (38-126); Anion Gap 13 mmol/L (8-16); Aspartate Amino Transferase 20 U/L (17-59); Bilirubin,Total 0.8 mg/dL (0.2-1.3); Blood Urea Nitrogen 25 mg/dL (9-20); Calcium 9.3 mg/dL (8.4-10.2); Carbon Dioxide 19 mmol/L (22-30); Chloride 106 mmol/L (98-107); Estimated CRCL calculation 58 ml/min; Estimated Glomerular Filt Rate 47; Glucose 121 mg/dL (65-110); Potassium 4.3 mmol/L (3.4-5.0); Sodium 138 mmol/L (137-145)
[2023-03-09 15:25] LABS: INR 1.3; Prothrombin Time 16.7 Seconds (11.1-14.7)
[2023-03-09 15:26] LABS: Partial Thromboplastin Time 32.3 SECONDS (22.3-36.8)
--- NOTE | 2023-03-09 15:57 | PC.NURSE ---
Eusebio, Poison Control, closed patient's case after reviewing this afternoon's lab work.
[2023-03-09] MEDS: LABETALOL HCL INJ 100 MG/20 ML VIAL 20 MG IV PUSH (18:09)
[2023-03-09 19:02] LABS: Basophils Percent Auto 0.2 % (0.2-1.2); Eosinophils Absolute Auto 0.3 K/mm3 (0-0.3); Eosinophils Percent Auto 1.9 % (0-4.4); Hematocrit 39.9 % (42.0-52.0); Hemoglobin 13.4 g/dL (14.0-18.0); Immature Granulocyte Percent A 0.7 % (0-0.5); Lymphocytes Absolute Auto 1.43 K/mm3 (0.9-3.2); Mean Corpuscular HGB Conc 33.6 g/dl (32-36); Mean Corpuscular Hemoglobin 28.9 pg (26-34); Mean Corpuscular Volume 86.2 fl (80-100); Mean Platelet Volume 10.7 fl (7.4-10.4); Monocytes Absolute Auto 0.9 K/mm3 (0.1-0.6); Monocytes Percent Auto 6.3 % (2.6-8.5); Neutrophils Absolute Auto 11.6 K/mm3 (1.3-6.7); Neutrophils Percent Auto 80.9 % (45.5-73.1); Platelet Count Result 291 k/mm3 (150-375); Red Blood Count 4.63 M/mm3 (4.6-6.20); Red Cell Distribution Width 14.2 % (11.5-14.5); White Blood Count 14.4 K/mm3 (4.5-10.0)
[2023-03-09 19:16] LABS: INR 1.3; Prothrombin Time 16.6 Seconds (11.1-14.7)
[2023-03-09 19:19] LABS: Alanine Aminotransferase 20 U/L (6-50); Albumin Level 4.2 g/dL (3.5-5.1); Alkaline Phosphatase 83 U/L (38-126); Anion Gap 15 mmol/L (8-16); Aspartate Amino Transferase 22 U/L (17-59); Bilirubin,Total 0.8 mg/dL (0.2-1.3); Blood Urea Nitrogen 23 mg/dL (9-20); Calcium 9.7 mg/dL (8.4-10.2); Carbon Dioxide 17 mmol/L (22-30); Chloride 107 mmol/L (98-107); Estimated CRCL calculation 58 ml/min; Estimated Glomerular Filt Rate 47; Glucose 112 mg/dL (65-110); Sodium 139 mmol/L (137-145)
[2023-03-09 19:27] LABS: Toxigenic C. Diff NEGATIVE (NEGATIVE)
[2023-03-10] VITALS (11 sets, daily range): BP systolic 151–194; BP diastolic 66–93; PULSE 60–89; RESP 16–20; TEMP 36.4–37; O2SAT 95–97
[2023-03-10] MEDS: ALPRAZolam (*CRX) 0.5 MG TABLET PO (04:35)
[2023-03-10] MEDS: hydrALAZINE HCL 20 MG/ML VIAL 5 MG IV PUSH (04:36)
[2023-03-10 04:47] LABS: Basophils Percent Auto 0.2 % (0.2-1.2); Eosinophils Absolute Auto 0.2 K/mm3 (0-0.3); Eosinophils Percent Auto 1.3 % (0-4.4); Hematocrit 39.8 % (42.0-52.0); Hemoglobin 13.5 g/dL (14.0-18.0); Immature Granulocyte Percent A 0.8 % (0-0.5); Lymphocytes Absolute Auto 1.58 K/mm3 (0.9-3.2); Lymphocytes Percent Auto 12.4 % (18.3-44.2); Mean Corpuscular HGB Conc 33.9 g/dl (32-36); Mean Corpuscular Hemoglobin 28.9 pg (26-34); Mean Corpuscular Volume 85.2 fl (80-100); Mean Platelet Volume 10.7 fl (7.4-10.4); Monocytes Absolute Auto 0.8 K/mm3 (0.1-0.6); Monocytes Percent Auto 6.3 % (2.6-8.5); Neutrophils Absolute Auto 10.1 K/mm3 (1.3-6.7); Platelet Count Result 284 k/mm3 (150-375); Red Blood Count 4.67 M/mm3 (4.6-6.20); Red Cell Distribution Width 14.2 % (11.5-14.5); White Blood Count 12.8 K/mm3 (4.5-10.0)
[2023-03-10 05:03] LABS: INR 1.2; Prothrombin Time 15.9 Seconds (11.1-14.7)
[2023-03-10 05:04] LABS: Alanine Aminotransferase 20 U/L (6-50); Albumin Level 4.2 g/dL (3.5-5.1); Alkaline Phosphatase 91 U/L (38-126); Anion Gap 12 mmol/L (8-16); Aspartate Amino Transferase 26 U/L (17-59); Bilirubin,Total 0.9 mg/dL (0.2-1.3); Blood Urea Nitrogen 21 mg/dL (9-20); Calcium 9.9 mg/dL (8.4-10.2); Carbon Dioxide 19 mmol/L (22-30); Chloride 108 mmol/L (98-107); Estimated CRCL calculation 58 ml/min; Estimated Glomerular Filt Rate 47; Glucose 116 mg/dL (65-110); Magnesium 1.5 mg/dL (1.6-2.3); Potassium 3.8 mmol/L (3.4-5.0); Sodium 139 mmol/L (137-145)
[2023-03-10] MEDS: PARoxetine 10 MG TABLET 30 MG PO (08:19)
[2023-03-10] MEDS: hydrALAZINE HCL 25 MG TABLET PO ×3 (08:19→20:40)
[2023-03-10] MEDS: TIMOLOL MALEATE 0.5% OP SOLN 5 ML BOTTLE 1 DROP EACH EYE (08:19)
[2023-03-10] MEDS: atenoloL 25 MG TABLET PO (08:19)
[2023-03-10] MEDS: LOSARTAN POTASSIUM 100 MG TABLET PO (08:19)
--- NOTE | 2023-03-10 10:20 | WPDINTPN ---
Progress Note: A&P Assessment and Plan (1) Depression: Code(s): F32.A - Depression, unspecified Status: Acute Assessment and Plan: Currently on Paxil Lexapro and trazodone (2) Intentional acetaminophen overdose: Code(s): T39.1X2A - Poisoning by 4-Aminophenol derivatives, intentional self-harm, initial encounter Status: Acute Assessment and Plan: status post course of N-acetylcysteine infusion due to significant amount of acetaminophen intake although his LFTs remain normal. (3) Hypertension: Code(s): I10 - Essential (primary) hypertension Status: Acute Assessment and Plan: Blood pressure elevated despite a losartan hydralazine atenolol. heart rate in 60s add 5 mg of Norvasc p.o. q.day (4) Hyperlipidemia: Code(s): E78.5 - Hyperlipidemia, unspecified Status: Acute Assessment and Plan: simvastatin was on hold due to patient's acetaminophen overdose and says risk of liver toxicity. can be restarted when Jyothi (5) BOAZ (acute kidney injury): Code(s): N17.9 - Acute kidney failure, unspecified Status: Acute Assessment and Plan: patient's creatinine is elevated but appears to Have improved and then stabilized since admission.. Patient has chronic kidney disease and this may be close to his baseline as creatinine registered in November was also similar check CT scan of abdomen pelvis in light of hematuria rule out any stones (6) Hematuria: Code(s): R31.9 - Hematuria, unspecified Status: Acute Assessment and Plan: this could be traumatic hematuria from Durant insertion. patient appears to have had problem with urination as an outpatient and was supposed to see urologist on Wednesday. I see he is on Flomax although he does not know any history of BPH. urology consultation is pending Will check CT scan he is not on any anticoagulation Plan once medically improved and stabilize he will need psychiatric evaluation o for depression for discharge planning. Continue suicidal precautions with one-to-one sitter at bedside. spoke to and updated patient and patient's mother at bedside and answered all their questions Subjective Date/time seen: 03/10/23 patient states he feels better and denies any new complaints. He states he had diarrhea yesterday although had only 1 bowel movement overnight. So complains of abdominal pain which he states started after coming to the hospital and points towards hypogastric area. he rates it at 4/10. Patient denies fever, chest pain, shortness of breath, cough, nausea vomiting, diarrhea, headache or constipation. All other systems were reviewed and were negative. He has a Durant with hematuria. Pressure is elevated on the telemetry. Sinus Dl on the monitor. Good urine output. Interval history: naoe. patient is resting comfortably in bed. he has unreliable responses. he says he doesn't want to kill himself anymore but reports he has no existence left in this world. Exam Narrative: General: Pt is alert awake and in NAD Lungs/Chest: Trachea central Clear BS B/L, No crackles or wheezing. Cardiac: RRR. Normal S1 S2. No murmurs Circulation: Pedal pulses are intact and symmetrical. Abdomen: Normal bowel sounds.. Soft. NT. ND. Extremities: No clubbing, cyanosis or edema. Warm : Durant in place Hematuria Neurologic: Follows commands. Moves all 4 extremities PERRL Skin: No Rash Const: General: comfortable and no acute distress Other: obese Eyes: Pupils: Equal, round and reactive pupils present Cardio: Rate: regular rate Rhythm: regular rhythm Heart sounds: no gallops, no murmurs and no rubs GI: GI Palp: No abdominal tenderness, Yes Soft to palpation, No Tenderness to palpation present (GI), No Guarding due to palpation present (GI) and No Rigid due to palpation Neuro: Cranial nerves: Yes Equal, round and reactive pupils present Extrem: General: no edema
[2023-03-10] MEDS: amLODIPine BESYLATE 5 MG TABLET PO (15:44)
--- NOTE | 2023-03-10 16:19 | WPDURCON ---
Assessment and Plan Assessment and plan (1) Hematuria: Code(s): R31.9 - Hematuria, unspecified Status: Acute (2) Urinary retention: Code(s): R33.9 - Retention of urine, unspecified Status: Acute (3) Hydronephrosis: Code(s): N13.30 - Unspecified hydronephrosis Status: Acute Plan 63 year old M with history urinary retention managed with Durant catheter. Now with hematuria with Durant in place. Bladder thickening and bilateral hydronephrosis on CT. He is scheduled for workup with urodynamics and cystoscopy in the near future as an outpatient - Recommend pt continue on Flomax - Continue Durant with monthly exchanges or teach pt intermittent catheterization - Bilateral hydronephrosis likely secondary to bladder outlet obstruction, plan renal US in 1-2 days to ensure improvement with Durant. Consider lasix renal scan to rule out obstruction if persistent hydronephrosis - Follow up for outpatient urodynamics to assess bladder function and cystoscopy to assess for obstruction and complete hematuria evaluation Urology Consult Note HPI Date Seen: 03/10/23 Requesting Physician: Sirena Weston MD Primary Care Provider: Evelio MckeeMD Consult Narrative Narrative: Nura North is a 63 year old male admitted to [facility] after suicide attempt. Patient has been managed with indwelling Durant catheter since office visit on 02/12/23 when found to be in urinary retention. Pt is scheduled for urodynamics and cystoscopy with Dr. Beth next week to evaluate options for management PMFSH Past Medical History Medical History (Updated 03/10/23 @ 16:25 by James Villarreal MD) Chronic kidney disease Chronic pain syndrome Depression with anxiety Gout History of GI bleed History of meningitis Hydronephrosis Hyperlipidemia Hypertension Legally blind Left eye YOSEPH on CPAP Peripheral neuropathy Urinary retention Surgical History Surgical History H/O cataract extraction H/O hand surgery H/O inguinal hernia repair H/O Spinal surgery History of tonsillectomy Family History Family History Mother Patient's mother is in good health Father Patient's father is Grandparent Cerebrovascular accident Family history of malignant neoplasm Family history of heart disease in male family member before age 55 Unknown Hypertension Lung disease Hyperlipidemia Cancer Other Diabetes mellitus Family history of alcoholism Family history of arthritis Family history of gout Social History Social History (Updated 03/08/23 @ 23:25 by Jennifer Sarkar PA-C) Social History: The patient lives home alone. He is a former smoker. The patient used to be heavy smoker smoking up to 2-3 packs of cigarettes for several years. The patient was known to drink 8-10 beers a day, states he drinks less than that now and not every day. He is retired and disabled in 1979. His mother Zita leonard is his contact acid plant operator helper. Code status full code Smoking packs per day: 3 Smoking cigarettes per day: 60.0 Years smoked: 15 Smoking pack-years: 45.00 Smoking status: Former smoker Tobacco type: cigarettes Second hand tobacco smoke exposure: No Smoking end date: 03/29/04 Additional smoking assessment comments: CURRENT: SMOKELESS TOBACCO (01/2023) Alcohol intake: former Substance use type: prescription drug Other substance usage details: oxycodone Last use: t-1 Lack of Transportation: YES Lack of Food: Never True Current Housing: I Have Housing Concerned About Future Housing: No Difficulty Paying Gas/Electric Bills: No Difficulty Paying for Meds: No Currently Unemployed: No Education: High School Diploma/GED Difficulty w/ Childcare or Family Care: No Occupation/Education: retired Additional occupation/education
[2023-03-10] MEDS: TAMSULOSIN HCL 0.4 MG CAPSULE PO (20:40)
[2023-03-10] MEDS: ESCITALOPRAM OXALATE 5 MG TABLET 15 MG PO (20:40)
[2023-03-10] MEDS: traZODone HCL 50 MG TABLET 150 MG PO (20:41)
[2023-03-10] MEDS: HYDROmorphone HCL INJ (*CRX) 1 MG/ML SYR 0.5 MG IV PUSH (23:34)
[2023-03-11] VITALS (9 sets, daily range): BP systolic 108–143; BP diastolic 50–83; PULSE 52–80; RESP 14–20; TEMP 36.3–36.9; O2SAT 96–100
[2023-03-11 05:31] LABS: Hematocrit 37.8 % (42.0-52.0); Hemoglobin 12.8 g/dL (14.0-18.0); Mean Corpuscular HGB Conc 33.9 g/dl (32-36); Mean Corpuscular Hemoglobin 29.4 pg (26-34); Mean Corpuscular Volume 86.9 fl (80-100); Mean Platelet Volume 10.2 fl (7.4-10.4); Platelet Count Result 259 k/mm3 (150-375); Red Blood Count 4.35 M/mm3 (4.6-6.20); Red Cell Distribution Width 14.3 % (11.5-14.5); White Blood Count 14.3 K/mm3 (4.5-10.0)
[2023-03-11] MEDS: HYDROmorphone HCL INJ (*CRX) 1 MG/ML SYR 0.5 MG IV PUSH ×2 (05:38→11:08)
[2023-03-11 05:44] LABS: Alanine Aminotransferase 17 U/L (6-50); Albumin Level 4.1 g/dL (3.5-5.1); Alkaline Phosphatase 80 U/L (38-126); Anion Gap 10 mmol/L (8-16); Aspartate Amino Transferase 26 U/L (17-59); Bilirubin,Total 1.1 mg/dL (0.2-1.3); Blood Urea Nitrogen 20 mg/dL (9-20); Calcium 9.6 mg/dL (8.4-10.2); Carbon Dioxide 19 mmol/L (22-30); Chloride 108 mmol/L (98-107); Estimated CRCL calculation 52 ml/min; Estimated Glomerular Filt Rate 44; Glucose 117 mg/dL (65-110); Potassium 3.7 mmol/L (3.4-5.0); Sodium 137 mmol/L (137-145)
[2023-03-11] MEDS: PARoxetine 10 MG TABLET 30 MG PO (08:48)
[2023-03-11] MEDS: atenoloL 25 MG TABLET PO (08:48)
[2023-03-11] MEDS: LOSARTAN POTASSIUM 100 MG TABLET PO (08:50)
[2023-03-11] MEDS: hydrALAZINE HCL 25 MG TABLET PO ×2 (08:50→14:25)
[2023-03-11] MEDS: amLODIPine BESYLATE 5 MG TABLET PO (08:50)
[2023-03-11] MEDS: TIMOLOL MALEATE 0.5% OP SOLN 5 ML BOTTLE 1 DROP EACH EYE (08:51)
[2023-03-11] MEDS: PANTOPRAZOLE 40 MG TABLET PO (09:55)
--- NOTE | 2023-03-11 11:19 | WPDINTPN ---
Progress Note: A&P Assessment and Plan (1) Hematuria: Code(s): R31.9 - Hematuria, unspecified Status: Acute Assessment and Plan: this could be traumatic hematuria from Durant insertion. patient appears to have had problem with urination as an outpatient and was supposed to see urologist on Wednesday. He is on Flomax although he does not know any history of BPH. CT abdomen pelvis was done and showed IMPRESSION: 1. Moderate bilateral hydronephrosis and hydroureter. Cortical thinning of the kidneys. 2. Diffuse bladder wall thickening, which may be secondary to chronic outlet obstruction, cystitis, or neurogenic bladder. 3. Duodenal wall thickening with surrounding fat stranding, consistent with duodenitis. Patient was evaluated by Urology and he recommends continuing Flomax and Durant with monthly changes and follow-up as an outpatient I spoke to patient patient states that he will not be able to manage Durant or changes by himself. (2) Depression: Code(s): F32.A - Depression, unspecified Status: Acute Assessment and Plan: Currently on Paxil Lexapro and trazodone Patient will be evaluated by crisis management today. (3) Intentional acetaminophen overdose: Code(s): T39.1X2A - Poisoning by 4-Aminophenol derivatives, intentional self-harm, initial encounter Status: Acute Assessment and Plan: status post course of N-acetylcysteine infusion due to significant amount of acetaminophen intake although his LFTs remain normal. (4) Hypertension: Code(s): I10 - Essential (primary) hypertension Status: Acute Assessment and Plan: Blood pressure elevated despite a losartan hydralazine atenolol. heart rate in 60s Patient was started on 5 mg of Norvasc p.o. q.day which will be continued (5) Hyperlipidemia: Code(s): E78.5 - Hyperlipidemia, unspecified Status: Acute Assessment and Plan: simvastatin was on hold due to patient's acetaminophen overdose and says risk of liver toxicity. can be restarted when Jyothi (6) BOAZ (acute kidney injury): Code(s): N17.9 - Acute kidney failure, unspecified Status: Acute Assessment and Plan: patient's creatinine is elevated but appears to Have improved and then stabilized since admission.. Patient has chronic kidney disease and this may be close to his baseline as creatinine registered in November was also similar See above Plan Patient's discharge planning has been complicated due to multiple medication issues along with psychiatrist issues. He appears that he will not be able to manage his Durant catheter with exchanges. He lives by himself and is wheelchair-bound. He also has history of depression and suicide attempt in the past. Plan to have crisis evaluate the patient from behaviors health standpoint. PT will evaluate the patient. Will discuss with home care liaison regarding what services can be provided home. Once we have all this information will come up with the discharge plan Continue suicidal precautions with one-to-one sitter at bedside. For now I spoke to and updated patient and patient's mother in detail at bedside and answered all their questions Subjective Date/time seen: 03/11/23 Patient was evaluated by Urology yesterday. He states that his abdominal discomfort is still present although it is mild. He denies any other complaints. Patient denies fever, chest pain, shortness of breath, cough, nausea vomiting, abdominal pain,, diarrhea, headache or constipation. All other systems were reviewed and were negative His urine still looks bloody although less than before. Afebrile and tolerating p.o. diet Review of Systems Review of Systems: All systems reviewed & are unremarkable except as noted in HPI and below (Subjective) Exam Narrative: General: Pt is alert awake and in NAD Lungs/Chest: Trachea central Clear BS B/L, No crackles or wheezing. Cardiac: RRR. Normal S1 S2
--- NOTE | 2023-03-11 15:40 | PC.NURSE ---
This patient, Nura North, was transferred to [250 ] on 03/11/23 at 1540. Personal belongings sent with patient. Appropriate documentation sent with patient.
--- NOTE | 2023-03-11 15:50 | PC.NURSE ---
This patient, Nura North, was received from [ICU ] on 03/11/23 at 1551. Patient/family oriented to unit policies and routines
[2023-03-11] MEDS: oxyCODONE HCL (*CRX) 5 MG TAB IR PO ×2 (16:12→18:09)
[2023-03-11] MEDS: traZODone HCL 50 MG TABLET 150 MG PO (20:58)
[2023-03-11] MEDS: TAMSULOSIN HCL 0.4 MG CAPSULE PO (20:58)
[2023-03-11] MEDS: ESCITALOPRAM OXALATE 5 MG TABLET 15 MG PO (20:58)
[2023-03-11] MEDS: oxyCODONE HCL (*CRX) 5 MG TAB IR 10 MG PO (21:59)
[2023-03-12] VITALS (11 sets, daily range): BP systolic 106–114; BP diastolic 46–56; PULSE 48–67; RESP 16–18; TEMP 36.5–36.8; O2SAT 95–99
[2023-03-12] MEDS: oxyCODONE HCL (*CRX) 5 MG TAB IR 10 MG PO ×5 (02:10→20:14)
--- NOTE | 2023-03-12 07:43 | WPDUROPN2 ---
Progress Note: A&P Assessment and Plan (1) Urinary retention: Code(s): R33.9 - Retention of urine, unspecified Status: Acute (2) Hydronephrosis: Code(s): N13.30 - Unspecified hydronephrosis Status: Acute (3) Hematuria: Code(s): R31.9 - Hematuria, unspecified Status: Acute Assessment and Plan: Urine without significant hematuria. Renal u/s to see if hydronephrosis has resolved. Home with catheter to arrange urodynamics and plan definitive intervention for retention. Subjective Subjective Date/Time Seen: 03/12/23 07:43 Interval history: Catheter draining well, minimal blood. Review of Systems Review of Systems: All systems reviewed & are unremarkable except as noted in HPI and below Exam Const: General: no acute distress Resp: Effort & Inspection: normal respiratory effort GI: Inspection: non-distended GI Palp: No abdominal tenderness and No Guarding due to palpation present (GI) Auscultation: normal bowel sounds Urinary Catheter: Urinary Catheter: patent and draining and urine pink Objective Data Vital Signs Vital Signs: Vital Signs - 24 hr 03/11/23 08:48 03/11/23 08:00 03/11/23 08:00 Temperature 98.2 F Pulse Rate 80 75 75 Respiratory Rate 18 Blood Pressure 134/83 Pulse Oximetry 98 Oxygen Delivery 03/11/23 12:00 03/11/23 16:00 03/11/23 16:00 Temperature 97.4 F L Pulse Rate 60 62 52 L Respiratory Rate 18 Blood Pressure 117/64 Pulse Oximetry 98 Oxygen Delivery 03/11/23 17:52 03/11/23 20:09 03/11/23 20:00 Temperature 98.2 F Pulse Rate 58 L 57 L 57 L Respiratory Rate 14 18 18 Blood Pressure 108/50 L 117/60 Pulse Oximetry 100 96 96 Oxygen Delivery Room Air 03/11/23 20:00 03/12/23 00:00 03/12/23 04:00 Temperature Pulse Rate 57 L 59 L 63 Respiratory Rate Blood Pressure Pulse Oximetry Oxygen Delivery 03/12/23 04:31 Temperature 97.9 F Pulse Rate 62 Respiratory Rate 18 Blood Pressure 106/51 L Pulse Oximetry 95 Oxygen Delivery Intake/Output Intake/Output: Intake & Output 03/09/23 03/10/23 03/11/23 03/12/23 23:59 23:59 23:59 23:59 Intake Total 650 600 480 140 Output Total 7200 2400 1850 300 Balance -7850 -1800 -1370 -160 Meds/Results Medications: Active Medications Generic Name Dose Route Start Last Admin Trade Name Freq PRN Reason Stop Dose Admin Alprazolam 0.5 mg 03/08/23 23:33 03/10/23 04:35 Alprazolam (*Crx) 0.5 Mg Tablet PO 0.5 mg TID PRN Administration Anxiety Amlodipine Besylate 5 mg 03/10/23 10:25 03/11/23 08:50 Amlodipine Besylate 5 Mg Tablet PO 5 mg QAM ANNE Administration Atenolol 25 mg 03/09/23 09:00 03/11/23 08:48 Atenolol 25 Mg Tablet PO 25 mg DAILY ANNE Administration Escitalopram Oxalate 15 mg 03/09/23 00:05 03/11/23 20:58 Escitalopram Oxalate 5 Mg Tablet PO 15 mg HS ANNE Administration Hydralazine HCl 25 mg 03/09/23 09:00 03/11/23 17:51 Hydralazine Hcl 25 Mg Tablet PO Not Given TID ANNE Hydralazine HCl 5 mg 03/09/23 09:57 03/10/23 04:36 Hydralazine Hcl 20 Mg/Ml Vial IV PUSH 5 mg Q4H PRN Administration SBP>160mmHg Losartan Potassium 100 mg 03/09/23 09:00 03/11/23 08:50 Losartan Potassium 100 Mg Tablet PO 100 mg DAILY ANNE Administration Oxycodone HCl 10 mg 03/11/23 18:03 03/12/23 06:13 Oxycodone Hcl (*Crx) 5 Mg Tab Ir PO 10 mg Q4H PRN Administration Pain Rated 7-10 Pantoprazole Sodium 40 mg 03/11/23 09:00 03/11/23 09:55 Pantoprazole 40 Mg Tablet PO 40 mg QAM ANNE Administration Paroxetine HCl 30 mg 03/09/23 09:00 03/11/23 08:48 Paroxetine 10 Mg Tablet PO 30 mg DAILY ANNE Administration Polyethylene Glycol 17 gm 03/09/23 09:00 03/11/23 08:43 Polyethylene Glycol 3350 17 Gm Powd.Pack PO Not Given DAILY NANE Tamsulosin HCl 0.4 mg 03/09/23 00:05 03/11/23 20:58 Tamsulosin Hcl 0.4 Mg Capsule PO 0.4 mg Q
--- NOTE | 2023-03-12 08:57 | PM.IMPN ---
Progress Note: A&P Assessment and Plan (1) Hematuria: Code(s): R31.9 - Hematuria, unspecified Status: Acute Assessment and Plan: (2) Depression: Code(s): F32.A - Depression, unspecified Status: Acute (3) Intentional acetaminophen overdose: Code(s): T39.1X2A - Poisoning by 4-Aminophenol derivatives, intentional self-harm, initial encounter Status: Acute (4) Hypertension: Code(s): I10 - Essential (primary) hypertension Status: Acute (5) Hyperlipidemia: Code(s): E78.5 - Hyperlipidemia, unspecified Status: Acute (6) BOAZ (acute kidney injury): Code(s): N17.9 - Acute kidney failure, unspecified Status: Acute Plan 63-year-old male with history of traumatic brain injury seizures sleep apnea hypertension hyperlipidemia oral cancer anemia chronic kidney disease and depression presented after intentional acetaminophen overdose. Reported recent stressor. Became remorseful after overdose and came to the ED for evaluation. Acetaminophen level on arrival to the ED was 172. ethyl alcohol level was 51. He was started on n acetyl cystine admitted to the ICU. Traumatic hematuria from Durant insertion. On Flomax for BPH. CT abdomen pelvis with moderate bilateral hydronephrosis and hydroureter. Diffuse bladder wall thickening which may be secondary to chronic outlet obstruction cystitis or neurogenic bladder. Duodenal wall thickening with surrounding fat stranding consistent with duodenitis. Urology has been consulted. On Durant catheter needs monthly changes and follow-up as an outpatient. Hematuria has resolved. Renal ultrasound to check on hydronephrosis. Intentional acetaminophen overdose: Finished n acetyl-cystine infusion. LFTs monitored Suicide attempt Depression Hypertension Hyperlipidemia BOAZ t creatinine in 1.9 on admission. Slowly improving. Has underlying CKD stage 3 current to the levels in the past Crisis still be evaluated Wheelchair bound will order PT OT lives alone at home Cervical disc disorder with myelopathy status post surgical intervention C4-7 decompression and C3-T1 posterolateral fusion 12/16/22 done at [place]. YOSEPH Chronic back pain History of suicide attempt in the past Refuses to do voluntary admission. Need to see psych. With risk may need to do involuntary petition. Diarrhea unclear etiology. CT abdomen pelvis showed liquid stool in the colon suggesting diarrhea as well. Will get stool studies. C diff recently checked was negative on 03/09/2023. Subjective Date/time seen: 03/12/23 08:57 Interval history: No overnight events. Has been having loose watery diarrhea. On rectal tube. Durant catheter in place. Hematuria resolved. No suicidal ideation. Does on a voluntary get admitted to the psych facility. Review of Systems Review of Systems: All systems reviewed & are unremarkable except as noted in HPI and below (Subjective) Exam Narrative: General: Pt is alert awake and in NAD Lungs/Chest: Trachea central Clear BS B/L, No crackles or wheezing. Cardiac: RRR. Normal S1 S2. No murmurs Circulation: Pedal pulses are intact and symmetrical. Abdomen: Normal bowel sounds.. Soft. NT. ND. Extremities: No clubbing, cyanosis or edema. Warm : Durant in place Hematuria rectal tube in place with watery stool Neurologic: Follows commands. Moves all 4 extremities PERRL Skin: No Rash Objective Data Vital Signs Vital Signs: Vital Signs - 24 hr 03/11/23 12:00 03/11/23 16:00 03/11/23 16:00 Temperature 97.4 F L Pulse Rate 60 62 52 L Respiratory Rate 18 Blood Pressure 117/64 Pulse Oximetry 98 Oxygen Delivery 03/11/23 17:52 03/11/23 20:09 03/11/23 20:00 Temperature 98.2 F Pulse Rate 58 L 57 L 57 L Respiratory Rate 14 18 18 Blood Pressure 108/50 L 117/60 Pulse Oximetry 100 96 96 Oxygen Delivery Room Air 03/11/23 20:00 03/12/23 00:00 03/12/23 04:00 Temperature Pulse Rate 57 L 5
[2023-03-12] MEDS: PARoxetine 10 MG TABLET 30 MG PO (11:02)
[2023-03-12] MEDS: atenoloL 25 MG TABLET PO (11:03)
[2023-03-12] MEDS: amLODIPine BESYLATE 5 MG TABLET PO (11:03)
[2023-03-12] MEDS: LOSARTAN POTASSIUM 100 MG TABLET PO (11:04)
[2023-03-12] MEDS: PANTOPRAZOLE 40 MG TABLET PO (11:04)
--- NOTE | 2023-03-12 12:50 | PCOTNOTE ---
The patient treatment was not able to be completed patient asked to come back later. Will plan to continue treatment per plan of care.
[2023-03-12] MEDS: SODIUM CHLORIDE 0.9% IV 1,000 ML 75 ML IV CONT (15:45)
[2023-03-12] MEDS: TAMSULOSIN HCL 0.4 MG CAPSULE PO (20:13)
[2023-03-12] MEDS: ESCITALOPRAM OXALATE 5 MG TABLET 15 MG PO (20:13)
[2023-03-12] MEDS: traZODone HCL 50 MG TABLET 150 MG PO (20:13)
--- NOTE | 2023-03-12 23:51 | PC.NURSE ---
Carl came to the station when she was on a break (ALFREDO Starks present in room) and she stated that the patient had smokeless tobacco that he was using. I then went into the room and asked pt about it and he stated that it was coffee and not tobacco. I asked to see the package and patient became agitated and he stated that it was not tobacco pt gave me the package and the label stated smokeless tobacco. I explained to the patient that he could not have it and he gave me the product and I placed a label on it and took it out of the room. Pt remains agitated.
[2023-03-13] VITALS (11 sets, daily range): BP systolic 110–130; BP diastolic 51–62; PULSE 47–78; RESP 16–18; TEMP 36.6–36.9; O2SAT 96–98
[2023-03-13] MEDS: oxyCODONE HCL (*CRX) 5 MG TAB IR 10 MG PO ×5 (00:49→19:57)
[2023-03-13] MEDS: ALPRAZolam (*CRX) 0.5 MG TABLET PO ×2 (00:50→21:39)
[2023-03-13 05:26] LABS: Basophils Percent Auto 0.3 % (0.2-1.2); Eosinophils Absolute Auto 0.6 K/mm3 (0-0.3); Eosinophils Percent Auto 4.9 % (0-4.4); Hematocrit 36.2 % (42.0-52.0); Hemoglobin 11.8 g/dL (14.0-18.0); Immature Granulocyte Absolute 0.08 K/mm3 (0.00-0.031); Immature Granulocyte Percent A 0.6 % (0-0.5); Lymphocytes Percent Auto 19.3 % (18.3-44.2); Mean Corpuscular HGB Conc 32.6 g/dl (32-36); Mean Corpuscular Hemoglobin 29.1 pg (26-34); Mean Corpuscular Volume 89.4 fl (80-100); Mean Platelet Volume 10.2 fl (7.4-10.4); Monocytes Percent Auto 7.6 % (2.6-8.5); Neutrophils Absolute Auto 8.7 K/mm3 (1.3-6.7); Neutrophils Percent Auto 67.3 % (45.5-73.1); Platelet Count Result 208 k/mm3 (150-375); Red Blood Count 4.05 M/mm3 (4.6-6.20); Red Cell Distribution Width 14.8 % (11.5-14.5)
[2023-03-13 05:43] LABS: Alanine Aminotransferase 14 U/L (6-50); Albumin Level 3.8 g/dL (3.5-5.1); Alkaline Phosphatase 70 U/L (38-126); Anion Gap 10 mmol/L (8-16); Aspartate Amino Transferase 19 U/L (17-59); Bilirubin,Total 0.7 mg/dL (0.2-1.3); Blood Urea Nitrogen 49 mg/dL (9-20); Calcium 9.3 mg/dL (8.4-10.2); Carbon Dioxide 19 mmol/L (22-30); Chloride 110 mmol/L (98-107); Estimated CRCL calculation 32 ml/min; Estimated Glomerular Filt Rate 24; Glucose 95 mg/dL (65-110); Magnesium 1.7 mg/dL (1.6-2.3); Potassium 3.9 mmol/L (3.4-5.0); Sodium 139 mmol/L (137-145)
[2023-03-13] MEDS: SODIUM CHLORIDE 0.9% IV 1,000 ML 75 ML IV CONT (06:45)
[2023-03-13] MEDS: atenoloL 25 MG TABLET PO (10:32)
[2023-03-13] MEDS: amLODIPine BESYLATE 5 MG TABLET PO (10:32)
[2023-03-13] MEDS: TIMOLOL MALEATE 0.5% OP SOLN 5 ML BOTTLE 1 DROP EACH EYE (10:33)
[2023-03-13] MEDS: PANTOPRAZOLE 40 MG TABLET PO (10:33)
[2023-03-13] MEDS: PARoxetine 10 MG TABLET 30 MG PO (10:33)
[2023-03-13 13:09] LABS: Appearance Urine Cloudy (Clear); Bacteria Urine 4+ /hpf; Bilirubin Urine Negative (Negative); Blood Urine 3+ (Negative); Color Urine Yellow (Yellow); Glucose Urine UA Negative (Negative); Ketones Urine Negative (Negative); Leukocyte Esterase Ur Trace LEU/UL (NEGATIVE); Nitrate Urine Negative (Negative); Non Pathogenic Casts 0-2; Protein Urine 3+ mg/dL (Negative); RBC Urine >100 /hpf (0-2); Specific Grav Ur 1.013 (1.001-1.035); Squamous Epithelial Cell Urine None seen /hpf (Few); Urobilinogen Urine 0.2 mg/dL (<2.0); WBC Urine 21-50 /hpf (0-3)
[2023-03-13 13:14] LABS: Add Urine Microscopic? YES
--- NOTE | 2023-03-13 13:17 | PM.IMPN ---
Progress Note: A&P Assessment and Plan (1) Hematuria: Code(s): R31.9 - Hematuria, unspecified Status: Acute (2) Depression: Code(s): F32.A - Depression, unspecified Status: Acute (3) Intentional acetaminophen overdose: Code(s): T39.1X2A - Poisoning by 4-Aminophenol derivatives, intentional self-harm, initial encounter Status: Acute (4) Hypertension: Code(s): I10 - Essential (primary) hypertension Status: Acute (5) Hyperlipidemia: Code(s): E78.5 - Hyperlipidemia, unspecified Status: Acute (6) BOAZ (acute kidney injury): Code(s): N17.9 - Acute kidney failure, unspecified Status: Acute Plan 63-year-old male with history of traumatic brain injury seizures sleep apnea hypertension hyperlipidemia oral cancer anemia chronic kidney disease and depression presented after intentional acetaminophen overdose. Reported recent stressor. Became remorseful after overdose and came to the ED for evaluation. Acetaminophen level on arrival to the ED was 172. ethyl alcohol level was 51. He was started on n acetyl cystine admitted to the ICU. Traumatic hematuria from Durant insertion. On Flomax for BPH. CT abdomen pelvis with moderate bilateral hydronephrosis and hydroureter. Diffuse bladder wall thickening which may be secondary to chronic outlet obstruction cystitis or neurogenic bladder. Duodenal wall thickening with surrounding fat stranding consistent with duodenitis. Urology has been consulted. On Durant catheter needs monthly changes and follow-up as an outpatient. Hematuria has resolved. Renal ultrasound to check on hydronephrosis. Intentional acetaminophen overdose: Finished n acetyl-cystine infusion. LFTs monitored Suicide attempt Depression Hypertension Hyperlipidemia BOAZ t creatinine in 1.9 on admission. Slowly improving. Has underlying CKD stage 3 current to the levels in the past creatinine has worsened. Poor p.o. intake will start IV fluids Crisis still be evaluated Wheelchair bound will order PT OT lives alone at home Cervical disc disorder with myelopathy status post surgical intervention C4-7 decompression and C3-T1 posterolateral fusion 12/16/22 done at [place]. YOSEPH Chronic back pain History of suicide attempt in the past Refuses to do voluntary admission. Need to see psych. With risk may need to do involuntary petition. Diarrhea unclear etiology. CT abdomen pelvis showed liquid stool in the colon suggesting diarrhea as well. Will get stool studies. C diff recently checked was negative on 03/09/2023. Will consult GI. Empiric antibiotics with Flagyl Subjective Date/time seen: 03/13/23 13:17 Interval history: Patient continues to have diarrhea. Rectal tube in place. Stool sample has not been sent. Reports some abdominal discomfort. Durant in place. Wants to go home. Review of Systems Review of Systems: All systems reviewed & are unremarkable except as noted in HPI and below (Subjective) Exam Narrative: General: Pt is alert awake and in NAD Lungs/Chest: Trachea central Clear BS B/L, No crackles or wheezing. Cardiac: RRR. Normal S1 S2. No murmurs Circulation: Pedal pulses are intact and symmetrical. Abdomen: Normal bowel sounds.. Soft. NT. ND. Extremities: No clubbing, cyanosis or edema. Warm : Durant in place Hematuria rectal tube in place with watery stool Neurologic: Follows commands. Moves all 4 extremities PERRL Skin: No Rash Objective Data Vital Signs Vital Signs: Vital Signs - 24 hr 03/12/23 14:36 03/12/23 16:00 03/12/23 19:19 Temperature 97.7 F 98.2 F Pulse Rate 48 L 53 L 50 L Respiratory Rate 16 16 Blood Pressure 107/48 L 110/46 L Pulse Oximetry 99 99 Oxygen Delivery 03/12/23 20:00 03/13/23 05:29 03/12/23 20:00 Temperature 98.1 F Pulse Rate 66 59 L Respiratory Rate 16 Blood Pressure 130/51 L Pulse Oximetry 98 Oxygen Delivery Room Air 03/13/23 00:00 03/13/23 04:00 03/13/23
[2023-03-13 13:24] LABS: Creatinine Urine 78.9 mg/dL; Sodium Urine Random 74 meq/L
[2023-03-13 13:53] LABS: Toxigenic C. Diff NEGATIVE (NEGATIVE)
[2023-03-13 14:01] LABS: CRP 2.4 mg/dL (<1.0)
[2023-03-13] MEDS: metroNIDAZOLE 500 MG/ISO 100ML 500 MG/100 ML BAG 100 MG IVPB ×2 (14:30→20:23)
[2023-03-13 15:43] LABS: Erythrocyte Sedimentation Rate 59 mm/hr (0-20)
[2023-03-13] MEDS: SODIUM CHLORIDE 0.9% IV 1,000 ML 125 ML IV CONT (17:58)
[2023-03-13] MEDS: traZODone HCL 50 MG TABLET 150 MG PO (20:24)
[2023-03-13] MEDS: ESCITALOPRAM OXALATE 5 MG TABLET 15 MG PO (20:24)
[2023-03-13] MEDS: TAMSULOSIN HCL 0.4 MG CAPSULE PO (20:24)
[2023-03-14] VITALS (10 sets, daily range): BP systolic 109–140; BP diastolic 47–57; PULSE 50–78; RESP 15–17; TEMP 36.6–36.8; O2SAT 92–100
[2023-03-14] MEDS: SODIUM CHLORIDE 0.9% IV 1,000 ML 125 ML IV CONT ×4 (00:01→20:40)
[2023-03-14] MEDS: oxyCODONE HCL (*CRX) 5 MG TAB IR 10 MG PO ×6 (00:01→22:36)
[2023-03-14 05:12] LABS: Basophils Percent Auto 0.3 % (0.2-1.2); Eosinophils Absolute Auto 0.5 K/mm3 (0-0.3); Hematocrit 34.5 % (42.0-52.0); Hemoglobin 11.2 g/dL (14.0-18.0); Immature Granulocyte Absolute 0.09 K/mm3 (0.00-0.031); Immature Granulocyte Percent A 0.8 % (0-0.5); Lymphocytes Absolute Auto 1.98 K/mm3 (0.9-3.2); Lymphocytes Percent Auto 18.7 % (18.3-44.2); Mean Corpuscular HGB Conc 32.5 g/dl (32-36); Mean Corpuscular Hemoglobin 29.2 pg (26-34); Mean Corpuscular Volume 89.8 fl (80-100); Mean Platelet Volume 10.3 fl (7.4-10.4); Monocytes Absolute Auto 0.9 K/mm3 (0.1-0.6); Monocytes Percent Auto 8.1 % (2.6-8.5); Neutrophils Absolute Auto 7.1 K/mm3 (1.3-6.7); Neutrophils Percent Auto 67.1 % (45.5-73.1); Platelet Count Result 212 k/mm3 (150-375); Red Blood Count 3.84 M/mm3 (4.6-6.20); Red Cell Distribution Width 14.8 % (11.5-14.5); White Blood Count 10.6 K/mm3 (4.5-10.0)
[2023-03-14 05:21] LABS: Alanine Aminotransferase 14 U/L (6-50); Albumin Level 3.7 g/dL (3.5-5.1); Alkaline Phosphatase 73 U/L (38-126); Anion Gap 10 mmol/L (8-16); Aspartate Amino Transferase 28 U/L (17-59); Bilirubin,Total 0.9 mg/dL (0.2-1.3); Blood Urea Nitrogen 44 mg/dL (9-20); Calcium 9.1 mg/dL (8.4-10.2); Carbon Dioxide 18 mmol/L (22-30); Chloride 114 mmol/L (98-107); Estimated CRCL calculation 41 ml/min; Estimated Glomerular Filt Rate 32; Glucose 87 mg/dL (65-110); Magnesium 1.6 mg/dL (1.6-2.3); Potassium 4.1 mmol/L (3.4-5.0); Sodium 142 mmol/L (137-145)
[2023-03-14] MEDS: metroNIDAZOLE 500 MG/ISO 100ML 500 MG/100 ML BAG 100 MG IVPB ×3 (06:21→20:39)
[2023-03-14] MEDS: amLODIPine BESYLATE 5 MG TABLET PO (10:16)
[2023-03-14] MEDS: TIMOLOL MALEATE 0.5% OP SOLN 5 ML BOTTLE 1 DROP EACH EYE (10:16)
[2023-03-14] MEDS: PARoxetine 10 MG TABLET 30 MG PO (10:16)
[2023-03-14] MEDS: PANTOPRAZOLE 40 MG TABLET PO (10:16)
--- NOTE | 2023-03-14 12:01 | WPDGICN ---
Assessment and Plan Assessment and plan (1) Diarrhea: Code(s): R19.7 - Diarrhea, unspecified Status: Acute Assessment and Plan: no more BM since yesterday c diff negative wonder if could have been from acetaminophen OD, use of mucomyst, etc he is feeling ok now ok to remove rectal tube and monitor no need of endoscopic intervention (he says that is uptodate with colonoscopy) but if recurrent diarrhea then can follow-up in office (2) Hematuria: Code(s): R31.9 - Hematuria, unspecified Status: Acute Assessment and Plan: by urology (3) Hydronephrosis: Code(s): N13.30 - Unspecified hydronephrosis Status: Acute (4) Intentional acetaminophen overdose: Code(s): T39.1X2A - Poisoning by 4-Aminophenol derivatives, intentional self-harm, initial encounter Status: Acute Assessment and Plan: treated successfully liver function remained normal disposition by primary team he has a sitter at bedside (5) Depression: Code(s): F32.A - Depression, unspecified Status: Acute (6) Acute on chronic kidney failure: Code(s): N17.9 - Acute kidney failure, unspecified; N18.9 - Chronic kidney disease, unspecified Status: Acute Assessment and Plan: monitor GI Consult Note Consult date/time: 03/14/23 12:01 Reason for consult: diarrhea HPI: Nura North is a 63 year old male with history of traumatic brain injury, seizure, sleep apnea, hypertension, hyperlipidemia, chronic anemia hgb 10,? chronic kidney disease creat 1.5, and depression who presented to the emergency department via EMS for evaluation after intentional acetaminophen overdose about 6 days ago. About two hours prior to arrival he reportedly took 100 extra strength Tylenol tablets in an attempt to take his own life. Labs on arrival to ER were significant for a chronic and stable anemia, sodium 128, chloride 97, BUN 31, creatinine 1.90, and acetaminophen level of 172. Urine drug screen was positive for benzodiazepines and ethyl alcohol level was 51. He was immediately treated with mucomyst and admitted to ICU, he never had elevated liver enzymes, creatinine up to 2. He also developed diarrhea and fecal system was placed. He was transferred to floor. He denies abdominal pain and has not had any more BM since yesterday. He says that before overdose he was having normal BM and denies previous diarrhea. He thinks that last colonoscopy about 5 years ago (family member and sitter at bedside). He says that is feeling better and would like to go home. Review of Systems Constitutional: Constitutional: Denies chills Eyes: Eyes: Denies blurry vision ENT: Reports Normal hearing present Cardiovascular: Cardiovascular: Denies chest pain Respiratory: Respiratory: Denies chest congestion Gastrointestinal: Gastrointestinal: Reports diarrhea Genitourinary: Genitourinary: Reports hematuria Musculoskeletal: Musculoskeletal: Denies arthralgias Integumentary/Breasts: Skin/Breast: Denies rash Neurologic: Denies Abnormal speech present Psychiatric: Psychiatric: Reports anxiety and Reports depression [facility] Past Medical History Medical History (Updated 03/14/23 @ 12:07 by Dexter Cheney MD) Acute on chronic kidney failure Chronic kidney disease Chronic pain syndrome Depression with anxiety Diarrhea Gout History of GI bleed History of meningitis Hydronephrosis Hyperlipidemia Hypertension Legally blind Left eye YOSEPH on CPAP Peripheral neuropathy Urinary retention Surgical History Surgical History H/O cataract extraction H/O hand surgery H/O inguinal hernia repair H/O Spinal surgery History of tonsillectomy Family History Family History Mother Patient's mother is in good health Father Patient's father is Grandparent Cerebrovascula
--- NOTE | 2023-03-14 12:33 | PM.IMPN ---
Progress Note: A&P Assessment and Plan (1) Hematuria: Code(s): R31.9 - Hematuria, unspecified Status: Acute (2) Depression: Code(s): F32.A - Depression, unspecified Status: Acute (3) Intentional acetaminophen overdose: Code(s): T39.1X2A - Poisoning by 4-Aminophenol derivatives, intentional self-harm, initial encounter Status: Acute (4) Hypertension: Code(s): I10 - Essential (primary) hypertension Status: Acute (5) Hyperlipidemia: Code(s): E78.5 - Hyperlipidemia, unspecified Status: Acute (6) BOAZ (acute kidney injury): Code(s): N17.9 - Acute kidney failure, unspecified Status: Acute Plan 63-year-old male with history of traumatic brain injury seizures sleep apnea hypertension hyperlipidemia oral cancer anemia chronic kidney disease and depression presented after intentional acetaminophen overdose. Reported recent stressor. Became remorseful after overdose and came to the ED for evaluation. Acetaminophen level on arrival to the ED was 172. ethyl alcohol level was 51. He was started on n acetyl cystine admitted to the ICU. Traumatic hematuria from Durant insertion. On Flomax for BPH. CT abdomen pelvis with moderate bilateral hydronephrosis and hydroureter. Diffuse bladder wall thickening which may be secondary to chronic outlet obstruction cystitis or neurogenic bladder. Duodenal wall thickening with surrounding fat stranding consistent with duodenitis. Urology has been consulted. On Durant catheter needs monthly changes and follow-up as an outpatient. Hematuria has resolved. Renal ultrasound to check on hydronephrosis. Intentional acetaminophen overdose: Finished n acetyl-cystine infusion. LFTs monitored Suicide attempt Depression Hypertension Hyperlipidemia BOAZ t creatinine in 1.9 on admission. Slowly improving. Has underlying CKD stage 3 current to the levels in the past creatinine has worsened. Poor p.o. intake will start IV fluids Crisis still be evaluated Wheelchair bound will order PT OT lives alone at home Cervical disc disorder with myelopathy status post surgical intervention C4-7 decompression and C3-T1 posterolateral fusion 12/16/22 done at [place]. YOSEPH Chronic back pain History of suicide attempt in the past Refuses to do voluntary admission. Need to see psych. With risk may need to do involuntary petition. Diarrhea unclear etiology. CT abdomen pelvis showed liquid stool in the colon suggesting diarrhea as well. Will get stool studies. C diff recently checked was negative on 03/09/2023. Repeat again negative. Empiric Flagyl continue. WBC count improved today. GI consulted. Remove rectal tube today Subjective Date/time seen: 03/14/23 12:33 Interval history: No further liquidy stools since the bag exchange yesterday. Reports some abdominal pain which initially reported 8-10 been changed to 4-5 because he wants to go home. Low appetite Review of Systems Review of Systems: All systems reviewed & are unremarkable except as noted in HPI and below (Subjective) Exam Narrative: General: Pt is alert awake and in NAD Lungs/Chest: Trachea central Clear BS B/L, No crackles or wheezing. Cardiac: RRR. Normal S1 S2. No murmurs Circulation: Pedal pulses are intact and symmetrical. Abdomen: Normal bowel sounds.. Soft. Mild epigastric tenderness Extremities: No clubbing, cyanosis or edema. Warm : Durant in place rectal tube in place with no stool in bag Neurologic: Follows commands. Moves all 4 extremities PERRL Skin: No Rash Objective Data Vital Signs Vital Signs: Vital Signs - 24 hr 03/13/23 14:40 03/13/23 16:00 03/13/23 21:58 Temperature 97.8 F 98.4 F Pulse Rate 55 L 54 L 50 L Respiratory Rate 18 16 Blood Pressure 121/52 L 128/52 L Pulse Oximetry 96 97 Oxygen Delivery 03/13/23 20:00 03/14/23 00:00 03/13/23 20:00 Temperature Pulse Rate 67 63 63 Respiratory Rate 16 Blood Pressure Pulse Ox
--- NOTE | 2023-03-14 15:33 | PCPTNOTE ---
Pt refused session this afternoon. Pt was educated on the benefits of exercise and to decrease pain and discomfort. Pt refused again. Sitter present in room.
--- NOTE | 2023-03-14 16:00 | PC.NURSE ---
Patient found with bedside table in room, removed it and locked up wash basin and other patient care items in closet. Patient sitter brought table back into room per patient request so he could reach his water, even after I already educated that it is supposed to be in hallway. Patient states table was in room on days prior.
[2023-03-14] MEDS: ESCITALOPRAM OXALATE 5 MG TABLET 15 MG PO (20:38)
[2023-03-14] MEDS: LOPERAMIDE HCL 2 MG CAPSULE PO (20:39)
[2023-03-14] MEDS: traZODone HCL 50 MG TABLET 150 MG PO (20:39)
[2023-03-14] MEDS: TAMSULOSIN HCL 0.4 MG CAPSULE PO (20:39)
[2023-03-14] MEDS: ALPRAZolam (*CRX) 0.5 MG TABLET PO (20:39)
[2023-03-15] VITALS (8 sets, daily range): BP systolic 124–150; BP diastolic 62–69; PULSE 52–61; RESP 16; TEMP 36.4; O2SAT 96–99
[2023-03-15] MEDS: oxyCODONE HCL (*CRX) 5 MG TAB IR 10 MG PO ×6 (02:44→22:43)
[2023-03-15] MEDS: metroNIDAZOLE 500 MG/ISO 100ML 500 MG/100 ML BAG 100 MG IVPB (05:22)
[2023-03-15 06:11] LABS: Basophils Percent Auto 0.3 % (0.2-1.2); Eosinophils Absolute Auto 0.4 K/mm3 (0-0.3); Eosinophils Percent Auto 3.2 % (0-4.4); Hematocrit 32.9 % (42.0-52.0); Hemoglobin 10.6 g/dL (14.0-18.0); Immature Granulocyte Absolute 0.08 K/mm3 (0.00-0.031); Immature Granulocyte Percent A 0.7 % (0-0.5); Lymphocytes Absolute Auto 1.91 K/mm3 (0.9-3.2); Lymphocytes Percent Auto 17.4 % (18.3-44.2); Mean Corpuscular HGB Conc 32.2 g/dl (32-36); Mean Corpuscular Hemoglobin 28.9 pg (26-34); Mean Corpuscular Volume 89.6 fl (80-100); Mean Platelet Volume 10.5 fl (7.4-10.4); Neutrophils Absolute Auto 7.6 K/mm3 (1.3-6.7); Neutrophils Percent Auto 69.4 % (45.5-73.1); Platelet Count Result 202 k/mm3 (150-375); Red Blood Count 3.67 M/mm3 (4.6-6.20); Red Cell Distribution Width 14.8 % (11.5-14.5)
[2023-03-15 06:26] LABS: Alanine Aminotransferase 12 U/L (6-50); Albumin Level 3.4 g/dL (3.5-5.1); Alkaline Phosphatase 76 U/L (38-126); Anion Gap 9 mmol/L (8-16); Aspartate Amino Transferase 18 U/L (17-59); Bilirubin,Total 0.7 mg/dL (0.2-1.3); Blood Urea Nitrogen 40 mg/dL (9-20); Calcium 8.9 mg/dL (8.4-10.2); Carbon Dioxide 15 mmol/L (22-30); Chloride 115 mmol/L (98-107); Estimated CRCL calculation 46 ml/min; Estimated Glomerular Filt Rate 36; Glucose 96 mg/dL (65-110); Magnesium 1.6 mg/dL (1.6-2.3); Potassium 4.1 mmol/L (3.4-5.0); Sodium 139 mmol/L (137-145)
[2023-03-15] MEDS: SODIUM CHLORIDE 0.9% IV 1,000 ML 125 ML IV CONT (06:46)
--- NOTE | 2023-03-15 08:51 | PCPTNOTE ---
Patient refused treatment this session. Educated patient on the importance of therapy and participating in PT, patient continued to refuse.
[2023-03-15] MEDS: PANTOPRAZOLE 40 MG TABLET PO (10:42)
[2023-03-15] MEDS: amLODIPine BESYLATE 5 MG TABLET PO (10:42)
[2023-03-15] MEDS: TIMOLOL MALEATE 0.5% OP SOLN 5 ML BOTTLE 1 DROP EACH EYE (10:42)
[2023-03-15] MEDS: PARoxetine 10 MG TABLET 30 MG PO (10:42)
--- NOTE | 2023-03-15 13:17 | PM.IMPN ---
Progress Note: A&P Assessment and Plan (1) Hematuria: Code(s): R31.9 - Hematuria, unspecified Status: Acute (2) Depression: Code(s): F32.A - Depression, unspecified Status: Acute (3) Intentional acetaminophen overdose: Code(s): T39.1X2A - Poisoning by 4-Aminophenol derivatives, intentional self-harm, initial encounter Status: Acute (4) Hypertension: Code(s): I10 - Essential (primary) hypertension Status: Acute (5) Hyperlipidemia: Code(s): E78.5 - Hyperlipidemia, unspecified Status: Acute (6) BOAZ (acute kidney injury): Code(s): N17.9 - Acute kidney failure, unspecified Status: Acute Plan 63-year-old male with history of traumatic brain injury seizures sleep apnea hypertension hyperlipidemia oral cancer anemia chronic kidney disease and depression presented after intentional acetaminophen overdose. Reported recent stressor. Became remorseful after overdose and came to the ED for evaluation. Acetaminophen level on arrival to the ED was 172. ethyl alcohol level was 51. He was started on n acetyl cystine admitted to the ICU. Traumatic hematuria from Durant insertion. On Flomax for BPH. CT abdomen pelvis with moderate bilateral hydronephrosis and hydroureter. Diffuse bladder wall thickening which may be secondary to chronic outlet obstruction cystitis or neurogenic bladder. Duodenal wall thickening with surrounding fat stranding consistent with duodenitis. Urology has been consulted. On Durant catheter needs monthly changes and follow-up as an outpatient. Hematuria has resolved. Renal ultrasound to check on hydronephrosis with very mild left hydronephrosis left. Intentional acetaminophen overdose: Finished n acetyl-cystine infusion. LFTs monitored Suicide attempt Depression Hypertension Hyperlipidemia BOAZ t creatinine in 1.9 on admission. Slowly improving. Has underlying CKD stage 3 current to the levels in the past creatinine has worsened. Poor p.o. intake started on IV fluids. Creatinine continues to improve down to 1.9 will stop IV fluid today and monitor tomorrow Crisis still need to evaluate Wheelchair bound will order PT OT lives alone at home Cervical disc disorder with myelopathy status post surgical intervention C4-7 decompression and C3-T1 posterolateral fusion 12/16/22 done at [place]. YOSEPH Chronic back pain History of suicide attempt in the past Refuses to do voluntary admission. Need to see psych. With risk may need to do involuntary petition. Diarrhea unclear etiology. CT abdomen pelvis showed liquid stool in the colon suggesting diarrhea as well. Will get stool studies. C diff recently checked was negative on 03/09/2023. Repeat again negative. Empiric Flagyl continue. WBC count continues to improve. GI consulted. Removed rectal tube. Diarrhea resolving Subjective Date/time seen: 03/15/23 13:17 Interval history: Reports no further abdominal pain. No further diarrhea. Feels good. Review of Systems Review of Systems: All systems reviewed & are unremarkable except as noted in HPI and below (Subjective) Exam Narrative: General: Pt is alert awake and in NAD Lungs/Chest: Trachea central Clear BS B/L, No crackles or wheezing. Cardiac: RRR. Normal S1 S2. No murmurs Circulation: Pedal pulses are intact and symmetrical. Abdomen: Normal bowel sounds.. Soft. Nontender Extremities: No clubbing, cyanosis or edema. Warm : F Durant in place Neurologic: Follows commands. Moves all 4 extremities PERRL Skin: No Rash Objective Data Vital Signs Vital Signs: Vital Signs - 24 hr 03/14/23 15:07 03/14/23 16:00 03/14/23 20:00 Temperature 98.2 F Pulse Rate 51 L 50 L 58 L Respiratory Rate 17 Blood Pressure 124/47 L Pulse Oximetry 100 Oxygen Delivery 03/14/23 20:00 03/14/23 22:43 03/15/23 00:00 Temperature 98.0 F Pulse Rate 57 L 60 58 L Respiratory Rate 15 16 Blood Pressure 109/51 L Pulse Oximetry
[2023-03-15] MEDS: metroNIDAZOLE 500 MG TABLET PO ×2 (14:50→20:36)
--- NOTE | 2023-03-15 15:45 | WPDGIPROGNO ---
Progress Note: A&P Assessment and Plan (1) Diarrhea: Code(s): R19.7 - Diarrhea, unspecified Status: Acute Assessment and Plan: resolved if similar problem then he can follow-up in office will sign off (2) Intentional acetaminophen overdose: Code(s): T39.1X2A - Poisoning by 4-Aminophenol derivatives, intentional self-harm, initial encounter Status: Acute Assessment and Plan: treated successfully with mucomyst on arrival liver function always remained normal (3) Hematuria: Code(s): R31.9 - Hematuria, unspecified Status: Acute (4) Depression with anxiety: Code(s): F41.8 - Other specified anxiety disorders Status: Acute Subjective Date/time seen: 03/15/23 15:45 Interval history: no BM since yesterday, rectal tube was removed, eating ok Review of Systems Review of Systems: All systems reviewed & are unremarkable except as noted in HPI and below Exam Const: General: comfortable and no acute distress HENMT: Face/Nose/Sinus: Normal nares present Eyes: General: appearance normal, both eyes and all related structures Neck: Neck: supple Resp: Auscultation: clear to auscultation bilaterally Cardio: Rate: regular rate Rhythm: regular rhythm GI: Inspection: non-distended GI Palp: Yes Soft to palpation, No Tenderness to palpation present (GI) and No Guarding due to palpation present (GI) Skin: General skin exam: normal color Neuro: Speech: normal speech Motor exam (neuro): 5/5 motor strength present throughout Extrem: General: normal to inspection Psych: Affect: Anxious affect present Objective Data Vital Signs Vital Signs: Vital Signs - 24 hr 03/14/23 16:00 03/14/23 20:00 03/14/23 20:00 Temperature Pulse Rate 50 L 58 L 57 L Respiratory Rate 15 Blood Pressure Pulse Oximetry 99 Oxygen Delivery Room Air 03/14/23 22:43 03/15/23 00:00 03/15/23 04:00 Temperature 98.0 F Pulse Rate 60 58 L 55 L Respiratory Rate 16 Blood Pressure 109/51 L Pulse Oximetry 92 Oxygen Delivery 03/15/23 07:05 03/15/23 08:00 03/15/23 08:00 Temperature 97.6 F 97.6 F Pulse Rate 60 58 L 60 Respiratory Rate 16 16 Blood Pressure 124/62 150/69 H Pulse Oximetry 99 96 Oxygen Delivery 03/15/23 10:42 03/15/23 12:00 Temperature Pulse Rate 52 L Respiratory Rate Blood Pressure Pulse Oximetry Oxygen Delivery Room Air Intake/Output Intake/Output: Intake & Output 03/12/23 03/13/23 03/14/23 03/15/23 23:59 23:59 23:59 23:59 Intake Total 590 2250 4840 1400 Output Total 675 1150 1850 1250 Balance -85 1100 2990 150 Meds/Results Medications: Active Medications Generic Name Dose Route Start Last Admin Trade Name Freq PRN Reason Stop Dose Admin Alprazolam 0.5 mg 03/08/23 23:33 03/14/23 20:39 Alprazolam (*Crx) 0.5 Mg Tablet PO 0.5 mg TID PRN Administration Anxiety Amlodipine Besylate 5 mg 03/10/23 10:25 03/15/23 10:42 Amlodipine Besylate 5 Mg Tablet PO 5 mg QAM ANNE Administration Atenolol 25 mg 03/09/23 09:00 03/13/23 10:32 Atenolol 25 Mg Tablet PO 25 mg DAILY ANNE Administration Escitalopram Oxalate 15 mg 03/09/23 00:05 03/14/23 20:38 Escitalopram Oxalate 5 Mg Tablet PO 15 mg HS ANNE Administration Hydralazine HCl 5 mg 03/09/23 09:57 03/10/23 04:36 Hydralazine Hcl 20 Mg/Ml Vial IV PUSH 5 mg Q4H PRN Administration SBP>160mmHg Hydralazine HCl 25 mg 03/12/23 10:59 Hydralazine Hcl 25 Mg Tablet PO TID PRN Hypertension Loperamide HCl 2 mg 03/14/23 10:13 03/14/23 20:39 Loperamide Hcl 2 Mg Capsule PO 2 mg PRN PRN Administration Diarrhea Metronidazole 500 mg 03/15/23 14:00 03/15/23 14:50 Metronidazole 500 Mg Tablet PO 500 mg Q8HR ANNE Administration Oxycodone HCl 10 mg 03/11/23 18:03 03/15/23 14:50 Oxycodone Hcl (*Crx) 5 Mg Tab Ir PO 10 mg Q4H PRN Administration Pain Rated 7-10
[2023-03-15] MEDS: TAMSULOSIN HCL 0.4 MG CAPSULE PO (20:34)
[2023-03-15] MEDS: ESCITALOPRAM OXALATE 5 MG TABLET 15 MG PO (20:35)
[2023-03-15] MEDS: traZODone HCL 50 MG TABLET 150 MG PO (20:35)
[2023-03-16] VITALS: BP 136/57; PULSE 53; PULSE 58; RESP 16; TEMP 36.4; O2SAT 100
[2023-03-16] MEDS: oxyCODONE HCL (*CRX) 5 MG TAB IR 10 MG PO ×3 (03:31→12:06)
[2023-03-16 04:00] VITALS: PULSE 57
[2023-03-16 04:18] VITALS: BP 140/62; PULSE 55; RESP 17; TEMP 36.9; O2SAT 99
[2023-03-16 05:37] LABS: Basophils Percent Auto 0.4 % (0.2-1.2); Eosinophils Absolute Auto 0.3 K/mm3 (0-0.3); Eosinophils Percent Auto 2.6 % (0-4.4); Hematocrit 33.1 % (42.0-52.0); Hemoglobin 10.8 g/dL (14.0-18.0); Immature Granulocyte Absolute 0.06 K/mm3 (0.00-0.031); Immature Granulocyte Percent A 0.5 % (0-0.5); Lymphocytes Absolute Auto 1.48 K/mm3 (0.9-3.2); Lymphocytes Percent Auto 13.5 % (18.3-44.2); Mean Corpuscular HGB Conc 32.6 g/dl (32-36); Mean Corpuscular Hemoglobin 28.8 pg (26-34); Mean Corpuscular Volume 88.3 fl (80-100); Mean Platelet Volume 9.8 fl (7.4-10.4); Monocytes Absolute Auto 1.1 K/mm3 (0.1-0.6); Monocytes Percent Auto 9.8 % (2.6-8.5); Neutrophils Percent Auto 73.2 % (45.5-73.1); Platelet Count Result 208 k/mm3 (150-375); Red Blood Count 3.75 M/mm3 (4.6-6.20); Red Cell Distribution Width 14.8 % (11.5-14.5)
[2023-03-16 05:52] LABS: Alanine Aminotransferase 13 U/L (6-50); Albumin Level 3.5 g/dL (3.5-5.1); Alkaline Phosphatase 74 U/L (38-126); Anion Gap 10 mmol/L (8-16); Aspartate Amino Transferase 20 U/L (17-59); Bilirubin,Total 0.9 mg/dL (0.2-1.3); Blood Urea Nitrogen 34 mg/dL (9-20); Calcium 9.1 mg/dL (8.4-10.2); Carbon Dioxide 17 mmol/L (22-30); Chloride 114 mmol/L (98-107); Estimated CRCL calculation 48 ml/min; Estimated Glomerular Filt Rate 38; Glucose 109 mg/dL (65-110); Magnesium 1.5 mg/dL (1.6-2.3); Sodium 141 mmol/L (137-145)
[2023-03-16] MEDS: metroNIDAZOLE 500 MG TABLET PO (05:59)
--- NOTE | 2023-03-16 06:26 | WPDUROPN2 ---
Progress Note: A&P Assessment and Plan (1) Urinary retention: Code(s): R33.9 - Retention of urine, unspecified Status: Acute (2) Hydronephrosis: Code(s): N13.30 - Unspecified hydronephrosis Status: Acute Assessment and Plan: Pre-catheter outpatient voiding effectively. Postvoid residual last night 135 cc is acceptable. Hydronephrosis following catheter per replacement resolved last week At this point okay to leave catheter out but follow-up as outpatient a regular basis to ensure retention is recurring Subjective Subjective Date/Time Seen: 03/16/23 06:26 Interval history: Catheter out and voiding / PVR 135cc is acceptable Review of Systems Review of Systems: All systems reviewed & are unremarkable except as noted in HPI and below Objective Data Vital Signs Vital Signs: Vital Signs - 24 hr 03/15/23 07:05 03/15/23 08:00 03/15/23 08:00 Temperature 97.6 F 97.6 F Pulse Rate 60 58 L 60 Respiratory Rate 16 16 Blood Pressure 124/62 150/69 H Pulse Oximetry 99 96 Oxygen Delivery 03/15/23 10:42 03/15/23 12:00 03/15/23 16:00 Temperature Pulse Rate 52 L 54 L Respiratory Rate Blood Pressure Pulse Oximetry Oxygen Delivery Room Air 03/15/23 16:00 03/15/23 17:00 03/15/23 20:00 Temperature 97.6 F 97.6 F Pulse Rate 61 61 61 Respiratory Rate 16 16 16 Blood Pressure 130/68 130/68 Pulse Oximetry 97 97 97 Oxygen Delivery Room Air Room Air 03/15/23 20:00 03/16/23 00:00 03/16/23 00:00 Temperature 97.6 F Pulse Rate 59 L 58 L 53 L Respiratory Rate 16 Blood Pressure 136/57 L Pulse Oximetry 100 Oxygen Delivery 03/16/23 04:18 03/16/23 04:00 Temperature 98.4 F Pulse Rate 55 L 57 L Respiratory Rate 17 Blood Pressure 140/62 Pulse Oximetry 99 Oxygen Delivery Intake/Output Intake/Output: Intake & Output 03/13/23 03/14/23 03/15/23 03/16/23 23:59 23:59 23:59 23:59 Intake Total 2250 4840 1850 200 Output Total 1150 1850 2600 350 Balance 1100 2990 -750 -150 Meds/Results Medications: Active Medications Generic Name Dose Route Start Last Admin Trade Name Freq PRN Reason Stop Dose Admin Alprazolam 0.5 mg 03/08/23 23:33 03/14/23 20:39 Alprazolam (*Crx) 0.5 Mg Tablet PO 0.5 mg TID PRN Administration Anxiety Amlodipine Besylate 5 mg 03/10/23 10:25 03/15/23 10:42 Amlodipine Besylate 5 Mg Tablet PO 5 mg QAM ANNE Administration Atenolol 25 mg 03/09/23 09:00 03/13/23 10:32 Atenolol 25 Mg Tablet PO 25 mg DAILY ANNE Administration Escitalopram Oxalate 15 mg 03/09/23 00:05 03/15/23 20:35 Escitalopram Oxalate 5 Mg Tablet PO 15 mg HS ANNE Administration Hydralazine HCl 5 mg 03/09/23 09:57 03/10/23 04:36 Hydralazine Hcl 20 Mg/Ml Vial IV PUSH 5 mg Q4H PRN Administration SBP>160mmHg Hydralazine HCl 25 mg 03/12/23 10:59 Hydralazine Hcl 25 Mg Tablet PO TID PRN Hypertension Loperamide HCl 2 mg 03/14/23 10:13 03/14/23 20:39 Loperamide Hcl 2 Mg Capsule PO 2 mg PRN PRN Administration Diarrhea Metronidazole 500 mg 03/15/23 14:00 03/16/23 05:59 Metronidazole 500 Mg Tablet PO 500 mg Q8HR ANNE Administration Oxycodone HCl 10 mg 03/11/23 18:03 03/16/23 03:31 Oxycodone Hcl (*Crx) 5 Mg Tab Ir PO 10 mg Q4H PRN Administration Pain Rated 7-10 Pantoprazole Sodium 40 mg 03/11/23 09:00 03/15/23 10:42 Pantoprazole 40 Mg Tablet PO 40 mg QAM ANNE Administration Paroxetine HCl 30 mg 03/09/23 09:00 03/15/23 10:42 Paroxetine 10 Mg Tablet PO 30 mg DAILY ANNE Administration Polyethylene Glycol 17 gm 03/14/23 16:34 Polyethylene Glycol 3350 17 Gm Powd.Pack PO DAILY PRN Constipation Tamsulosin HCl 0.4 mg 03/09/23 00:05 03/15/23 20:34 Tamsulosin Hcl 0.4 Mg Capsule PO 0.4 mg QHS ANNE Administration Timolol Maleate 1 drop 03/09/23 09:00 03/15/23 10:42 Timolol Maleate 0.5% Op Soln 5
[2023-03-16 08:00] VITALS: PULSE 53
[2023-03-16] MEDS: PANTOPRAZOLE 40 MG TABLET PO (08:01)
[2023-03-16] MEDS: amLODIPine BESYLATE 5 MG TABLET PO (08:01)
[2023-03-16] MEDS: PARoxetine 10 MG TABLET 30 MG PO (08:01)
[2023-03-16] MEDS: TIMOLOL MALEATE 0.5% OP SOLN 5 ML BOTTLE 1 DROP EACH EYE (08:03)
[2023-03-16] MEDS: ALPRAZolam (*CRX) 0.5 MG TABLET PO (08:03)
[2023-03-16] MEDS: MAGNESIUM SULF 2 GM/WATER 50ML 2 GM/50 ML BAG IVPB (09:46)
[2023-03-16 11:35] VITALS: BMI 38.7
--- NOTE | 2023-03-16 12:15 | PM.DS ---
DS: Admitting Diagnosis Discharge Date 03/16/2023 Admitting Diagnosis Overdose DS: Discharge Diagnosis Discharge Diagnosis (1) Hematuria: Code(s): R31.9 - Hematuria, unspecified Status: Acute (2) Depression: Code(s): F32.A - Depression, unspecified Status: Acute (3) Intentional acetaminophen overdose: Code(s): T39.1X2A - Poisoning by 4-Aminophenol derivatives, intentional self-harm, initial encounter Status: Acute (4) Hypertension: Code(s): I10 - Essential (primary) hypertension Status: Acute (5) Hyperlipidemia: Code(s): E78.5 - Hyperlipidemia, unspecified Status: Acute (6) BOAZ (acute kidney injury): Code(s): N17.9 - Acute kidney failure, unspecified Status: Acute DS: Summary Hospital Course Hospital Course: 63-year-old male with history of traumatic brain injury seizures sleep apnea hypertension hyperlipidemia oral cancer anemia chronic kidney disease and depression presented after intentional acetaminophen overdose.? Reported recent stressor.? Became remorseful after overdose and came to the ED for evaluation.? Acetaminophen level on arrival to the ED was 172.? ethyl alcohol level was 51.? He was started on n acetyl cystine admitted to the ICU. Traumatic hematuria from Durant insertion.? On Flomax for BPH.? CT abdomen pelvis with moderate bilateral hydronephrosis and hydroureter.? Diffuse bladder wall thickening which may be secondary to chronic outlet obstruction cystitis or neurogenic bladder.? Duodenal wall thickening with surrounding fat stranding consistent with duodenitis.? Urology has been consulted.? Eventually to hospital stay Durant catheter was removed he will continue to follow-up with urology as an outpatient basis. Hematuria has resolved.? Renal ultrasound to check on hydronephrosis with near complete resolution of hydronephrosis Intentional acetaminophen overdose: Finished n acetyl-cystine infusion.? LFTs monitored and remained normal throughout the hospital stay Suicide attempt seen by crisis team prior to discharge and cleared for discharge home Depression Hypertension Hyperlipidemia BOAZ with creatinine in 1.9 on admission.? Slowly improving.? Has underlying CKD stage 3 current to the levels in the past creatinine has worsened.? Poor p.o. intake and worsened his creatinine again during the hospital stay to 2.7 due to diarrhea. He was started on IV fluids.? Creatinine continues to improve down and maintained without IV fluid need outpatient renal function check and monitoring Wheelchair bound PT OT lives at home alone Cervical disc disorder with myelopathy status post surgical intervention C4-7 decompression and C3-T1 posterolateral fusion 12/16/22 done at [place]. YOSEPH Chronic back pain History of suicide attempt in the past Diarrhea unclear etiology.? CT abdomen pelvis showed liquid stool in the colon suggesting diarrhea as well.? Stool studies with C diff recently checked was negative on 03/09/2023.? Repeat again negative.? Empiric Flagyl continue.? WBC count continues to improve.? GI consulted.? Removed rectal tube.? Diarrhea resolved. Time Spent with Patient Time attestation: Total time spent providing and/or coordinating discharge services: 40 minutes Exam Narrative: General: Pt is alert awake and in NAD Lungs/Chest: Trachea central Clear BS B/L, No crackles or wheezing. Cardiac: RRR. Normal S1 S2. No murmurs Circulation: Pedal pulses are intact and symmetrical. Abdomen: Normal bowel sounds.. Soft. Nontender Extremities: No clubbing, cyanosis or edema. Warm : F Durant in place Neurologic: Follows commands. Moves all 4 extremities PERRL Skin: No Rash DS: Data Data Completed and Pending Labs on day of discharge: Labs from last 24 hours 03/16/23 05:25 WBC 11.0 H RBC 3.75 L Hgb 10.8 L Hct 33.1 L MCV 88.3 MCH 28.8 MCHC 32.6 RDW 14.8 H Plt Count 208 MPV 9.8 Immature Gran % (Auto) 0.5 Neut % (Auto) 73.2 H
== END 2023-03-16 13:26 | disposition home or self-care (01) | DRG 918 ==
LOC: ANHED 16:55 → ANHIMU 18:59 → ANHICU 19:28 → ANH2MED 03-11 15:30
PROVIDERS: Internal Medicine; Physician Assistant; Student in an Organized Health Care Education/Training Program; Admitting Provider General Practice; Emergency Provider Physician Assistant; PCP Family Medicine; Visit Provider General Practice
DX: T39.1X2A Poisoning by 4-Aminophenol derivatives, intentional self-harm, initial encounter (principal); N17.9 Acute kidney failure, unspecified; E87.1 Hypo-osmolality and hyponatremia; T83.83XA Hemorrhage due to genitourinary prosthetic devices, implants and grafts, initial encounter; N13.30 Unspecified hydronephrosis; R31.9 Hematuria, unspecified; T14.91XA Suicide attempt, initial encounter; F41.8 Other specified anxiety disorders; E78.5 Hyperlipidemia, unspecified; I12.9 Hypertensive chronic kidney disease with stage 1 through stage 4 chronic kidney disease, or unspecified chronic kidney disease; N18.30 Chronic kidney disease, stage 3 unspecified; G47.33 Obstructive sleep apnea (adult) (pediatric); H54.8 Legal blindness, as defined in USA; R41.9 Unspecified symptoms and signs involving cognitive functions and awareness; D64.9 Anemia, unspecified; N40.1 Benign prostatic hyperplasia with lower urinary tract symptoms; R33.8 Other retention of urine; N31.8 Other neuromuscular dysfunction of bladder; G62.9 Polyneuropathy, unspecified; K29.80 Duodenitis without bleeding; R19.7 Diarrhea, unspecified; Y90.2 Blood alcohol level of 40-59 mg/100 ml; E66.9 Obesity, unspecified; Z68.38 Body mass index [BMI] 38.0-38.9, adult; Z87.891 Personal history of nicotine dependence; Z87.820 Personal history of traumatic brain injury; Z85.819 Personal history of malignant neoplasm of unspecified site of lip, oral cavity, and pharynx; Z99.3 Dependence on wheelchair; Z98.1 Arthrodesis status; Z20.822 Contact with and (suspected) exposure to COVID-19
CPT/HCPCS: 36415; 74176; 76775; 80053; 80307; 81001; 82570; 83605; 83615; 83735; 84300; 84439; 84443; 84480; 85025; 85027; 85610; 85652; 85730; 86140; 87045; 87427; 87449; 87493; 87637; 93005; 96365; 96366; 97110; 97161; 97165; 97530; 97535; 99285; A9270; G0378; J0132; J0360; J1170; J1836; J3475; J7030; J7040; J7060; J7070

== ENCOUNTER 2023-04-03 13:00 | Inpatient (IN) | payer MEDICARE, BC, SELFPAY ==
--- NOTE | ~2023-04-03 | XR_ITS ---
Portable chest x-ray Comparison: 09/15/2022 Clinical History: Weakness Findings: Lungs are clear, without focal consolidation or pleural effusion. Cardiomediastinal silho uette is stable. Bones and soft tissues are unremarkable. Impression: Clear lungs. Reviewed, dictated and finalized at location . 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
--- NOTE | ~2023-04-03 | CT_ITS ---
EXAMINATION: CT abdomen pelvis wo con DATE: 04/03/2023 22:34 INDICATION: Abdominal pain. Sepsis. TECHNIQUE: Computed tomography (CT) of the abdomen and pelvis was performed without intravenous contr ast. Automated exposure control and iterative reconstruction technique were employed. Exam dose: 180 2.54 mGy-cm total exam DLP. COMPARISON: 03/10/2023 CT abdomen pelvis FINDINGS: Examination is limited due to the upper extremities overlying the chest and abdomen. There is infiltrate or atelectasis at the posterolateral base of the lingula atelectasis/consolidatio n of both lower lobes, greater on the right. Cardiomegaly, coronary artery calcification. No pericardial or pleural effusion. Mild bilateral gynecomastia. Gallbladder wall is thickened up to approximately 5 mm. There is moderate gallbladder distention. Con admission specialist gallbladder ultrasound for further evaluation. The liver, bile ducts spleen, pancreas, pancreatic duct and adrenal glands are unremarkable. Persistent moderate bilateral hydroureteronephrosis. The urinary bladder is very distended with mild diffuse bladder wall thickening. A small amount of intraluminal gas in the bladder lumen. There is prostate enlargement and calcification. Normal appendix. No bowel obstruction, bowel wall thickening, pneumatosis or intraperitoneal free air . There is extensive atherosclerotic calcification of the abdominal aorta, prominent calcification at t he origin of the celiac and superior mesenteric arteries in addition to prominent superior mesenteric artery calcification more distally. No abdominal aortic aneurysm. No intraperitoneal or retroperiton eal or pelvic mass lesion or adenopathy or ascites. Bilateral hip osteoarthritis, there are severe on the left. Status post posterior L3-L5 surgical fusion. Degenerative changes of the thoracic and lumbar spine. IMPRESSION: Distended urinary bladder, bladder wall thickening, persistent moderate bilateral hydrou reteronephrosis Prostate enlargement and calcification Gallbladder wall thickening; consider gallbladder ultrasound examination and hepatobiliary scan as cl inically appropriate Reviewed, dictated and finalized at [facility]. Reviewed, dictated and finalized at [facility]. [employer] IMPRESSION: Distended urinary bladder, bladder wall thickening, persistent mod erate bilateral hydroureteronephrosis Prostate enlargement and calcification Gallbladder wall thickening; consider gallbladder ultrasound examination and he patobiliary scan as clinically appropriate
--- NOTE | 2023-04-03 13:05 | ECG_ITS ---
Measurements Intervals [place] Rate: 95 P: 81 TN: 201 QRS: 66 QRSD: 105 T: 39 QT: 362 QTc: 456 Interpretive Statements SINUS RHYTHM EARLY PRECORDIAL R/S TRANSITION BASELINE ARTIFACT- I, AVR, AVL, V1-V2 BORDERLINE ECG COMPARED TO ECG 03/09/2023 10:48:47 SINUS RHYTHM NOW PRESENT Electronically Signed On 04-03-2023 13:45:45 DOOR PANELER by Navi Liao D.O.
[2023-04-03 13:07] VITALS: BP 104/63; PULSE 95; RESP 19; O2SAT 97
--- NOTE | 2023-04-03 13:22 | ED.WEAKNESS ---
HPI - Weakness General Chief complaint: Weakness Stated complaint: lethargic x 1 week/hypotensive Source: patient and EMS Mode of arrival: EMS History of Present Illness HPI Narrative: 63 YEARS OLD WHITE MALE LIVES ALONE, WHEELCHAIR-BOUND, CAME TO THE EMERGENCY ROOM BY AMBULANCE FROM HOME BECAUSE OF GENERAL WEAKNESS, UNABLE TO TAKE CARE OF HIMSELF. PATIENT'S MOTHER CALLED 911. PATIENT DOES NOT REMEMBER WHEN THE LAST TIME HE ATE OR WHEN THE LAST TIME HE TOOK HIS MEDICATIONS. PATIENT CAME TO THE ED WITH A LOT OF URINE AND STOOL ALL OVER THE PLACE. SIGNED HIMSELF OUT REHAB RECENTLY. Related Data Home Medications Medication Instructions Recorded Confirmed alprazolam 0.5 mg tablet 0.5 mg PO TID PRN Anxiety 09/15/22 03/08/23 paroxetine HCl 30 mg tablet 30 mg PO DAILY 09/15/22 03/08/23 simvastatin 20 mg tablet 20 mg PO DAILY 09/15/22 03/08/23 trazodone 150 mg tablet 150 mg PO HS 09/15/22 03/08/23 Allergies Allergy/AdvReac Type Severity Reaction Status Date / Time allopurinol Allergy Unknown Rash Verified 02/25/23 12:41 carbamazepine Allergy Unknown Rash Verified 02/25/23 12:41 cyclobenzaprine Allergy Unknown Rash Verified 02/25/23 12:41 diclofenac Allergy Unknown Rash Verified 02/25/23 12:41 Review of Systems Review of Systems: All systems reviewed & are unremarkable except as noted in HPI and below PMFSH Past Medical History Medical History Acute on chronic kidney failure Chronic kidney disease Chronic pain syndrome Depression with anxiety Diarrhea Gout History of GI bleed History of meningitis Hydronephrosis Hyperlipidemia Hypertension Legally blind Left eye YOSEPH on CPAP Peripheral neuropathy Urinary retention Surgical History Surgical History H/O cataract extraction H/O hand surgery H/O inguinal hernia repair H/O Spinal surgery History of tonsillectomy Family History Family History Mother Patient's mother is in good health Father Patient's father is Grandparent Cerebrovascular accident Family history of malignant neoplasm Family history of heart disease in male family member before age 55 Unknown Hypertension Lung disease Hyperlipidemia Cancer Other Diabetes mellitus Family history of alcoholism Family history of arthritis Family history of gout Social History Social History Social History: The patient lives home alone. He is a former smoker. The patient used to be heavy smoker smoking up to 2-3 packs of cigarettes for several years. The patient was known to drink 8-10 beers a day, states he drinks less than that now and not every day. He is retired and disabled in 1979. His mother Zita leonard is his contact center rep. Code status full code Smoking packs per day: 3 Smoking cigarettes per day: 60.0 Years smoked: 15 Smoking pack-years: 45.00 Smoking status: Former smoker Tobacco type: cigarettes Second hand tobacco smoke exposure: No Smoking end date: 03/29/04 Additional smoking assessment comments: CURRENT: SMOKELESS TOBACCO (01/2023) Alcohol intake: former Substance use type: prescription drug Other substance usage details: oxycodone Last use: t-1 Do You Feel Safe in your Home?: Yes Lack of Transportation: YES Lack of Food: Never True Current Housing: I Have Housing Concerned About Future Housing: No Difficulty Paying Gas/Electric Bills: No Difficulty Paying for Meds: No Currently Unemployed: No Education: High School Diploma/GED Difficulty w/ Childcare or Family Care: No Occupation/Education: retired Additional occupation/education comments: Retired [employer] Gender identity (if verbalized by the patient): Male Spiritual care concerns: No Exam Narrative: GENERAL APPEARAN
[2023-04-03 13:36] LABS: Basophils Percent Auto 0.2 % (0.2-1.2); Eosinophils Absolute Auto 0.2 K/mm3 (0-0.3); Eosinophils Percent Auto 1.1 % (0-4.4); Hematocrit 33.5 % (42.0-52.0); Hemoglobin 10.6 g/dL (14.0-18.0); Immature Granulocyte Absolute 0.18 K/mm3 (0.00-0.031); Lymphocytes Absolute Auto 1.13 K/mm3 (0.9-3.2); Lymphocytes Percent Auto 6.3 % (18.3-44.2); Mean Corpuscular HGB Conc 31.6 g/dl (32-36); Mean Corpuscular Hemoglobin 28.1 pg (26-34); Mean Corpuscular Volume 88.9 fl (80-100); Mean Platelet Volume 9.3 fl (7.4-10.4); Monocytes Absolute Auto 1.5 K/mm3 (0.1-0.6); Monocytes Percent Auto 8.2 % (2.6-8.5); Neutrophils Absolute Auto 14.9 K/mm3 (1.3-6.7); Neutrophils Percent Auto 83.2 % (45.5-73.1); Platelet Count Result 512 k/mm3 (150-375); Red Blood Count 3.77 M/mm3 (4.6-6.20); Red Cell Distribution Width 16.2 % (11.5-14.5); White Blood Count 17.9 K/mm3 (4.5-10.0)
[2023-04-03 13:49] LABS: Alanine Aminotransferase 35 U/L (6-50); Albumin Level 3.7 g/dL (3.5-5.1); Alkaline Phosphatase 239 U/L (38-126); Anion Gap 17 mmol/L (8-16); Aspartate Amino Transferase 103 U/L (17-59); Bilirubin,Total 1.1 mg/dL (0.2-1.3); Blood Urea Nitrogen 79 mg/dL (9-20); Calcium 8.5 mg/dL (8.4-10.2); Carbon Dioxide 15 mmol/L (22-30); Chloride 101 mmol/L (98-107); Estimated CRCL calculation 13 ml/min; Estimated Glomerular Filt Rate 8; Glucose 95 mg/dL (65-110); Potassium 4.8 mmol/L (3.4-5.0); Sodium 133 mmol/L (137-145)
[2023-04-03 14:17] LABS: Troponin I 0.063 ng/mL (0.000-0.034)
[2023-04-03] MEDS: SODIUM CHLORIDE 0.9% IV 1,000 ML 999 ML IV CONT ×3 (14:49→18:02)
--- NOTE | 2023-04-03 14:51 | PC.NURSE ---
pt refusing covid/flu/rsv swab.
[2023-04-03 14:59] VITALS: BP 90/55; PULSE 91; RESP 19; O2SAT 96
[2023-04-03 15:02] LABS: INR 1.6; Prothrombin Time 20.2 Seconds (11.1-14.7)
[2023-04-03 15:02] LABS: Lactic Acid Reflex 0.8 mmol/L (0.7-2.0)
[2023-04-03 15:03] LABS: Partial Thromboplastin Time 49.8 SECONDS (22.3-36.8)
[2023-04-03 15:19] VITALS: O2SAT 95
[2023-04-03 15:38] LABS: Appearance Urine Cloudy (Clear); Bacteria Urine None Seen /hpf; Bilirubin Urine 1+ (Negative); Blood Urine 3+ (Negative); Color Urine Dark Yellow (Yellow); Glucose Urine UA Negative (Negative); Ketones Urine Trace mg/dL (Negative); Leukocyte Esterase Ur 2+ LEU/UL (Negative); Nitrate Urine Negative (Negative); Protein Urine 2+ mg/dL (Negative); RBC Urine >100 /hpf (0-2); Specific Grav Ur 1.017 (1.001-1.035); Squamous Epithelial Cell Urine Many /hpf (Few); Urobilinogen Urine 0.2 mg/dL (<2.0); WBC Urine 51-100 /hpf
[2023-04-03 15:39] LABS: Add Urine Microscopic? YES
[2023-04-03 16:45] VITALS: BP 107/57; PULSE 100; RESP 16; O2SAT 96
[2023-04-03 18:03] VITALS: BP 112/62; PULSE 100; RESP 14; O2SAT 96
[2023-04-03] MEDS: SODIUM CHLORIDE 0.9% IV 1,000 ML 150 ML IV CONT (18:03)
--- NOTE | 2023-04-03 19:26 | PC.NURSE ---
Assumed care of pt from GABRIEL Shepherd.
[2023-04-03 21:34] LABS: Acetaminophen < 10 ug/mL (10-30); Ethanol < 10 mg/dL (<10)
--- NOTE | 2023-04-03 21:38 | PM.IMHP ---
H&P: HPI History of Present Illness Date/Time: 04/03/23 21:38 Chief Complaint: Weakness Narrative: 63-year-old male with a past medical history of depression with recent suicide attempt with Tylenol, chronic kidney disease stage 3, obesity, BPH with history of urinary retention and chronic pain with chronic narcotic dependence who presented to the ER from home via EMS due to weakness. Family reportedly called EMS because the patient was weak and dehydrated. On EMS arrival to the home the patient was laying in his own stool and urine. The patient was recently hospitalized 03/09/2023 through 03/16/2023. He was discharged from our facility home. However, he somehow ended up than going to acute rehab. Patient is alert orient x3 but is a poor historian and cannot give me significant details. There dressings on the patient's legs from 03/22/2023 and patient nicotine patch on his arm from the . The patient was noted have blood clots from his penis on exam and he states that that that was probably from when he ripped his Durant out when he left acute rehab. The patient stated that he left acute rehab AMA because they had him laying in bed for a week without doing any therapy. Patient cannot tell me when he left acute rehab. Cannot tell me details regarding why he pulled out his Durant catheter. He is noted to have large shearing wounds to his buttocks. He is adamant that he be given oxycodone 20 mg every 4 hours as needed. The last prescription in the prescription drug monitoring program the patient had been given 10 tablets of 15 mg of oxycodone. Prior to that he had been on Percocet 10/ but it appears that this prescription was not refilled due to his recent suicide attempt with Tylenol. He denies intent to hurt himself or others at this time. He reports generalized abdominal pain on palpation and is irritable with exam. He is demanding stuff to eat and drink. He denies any nausea or vomiting. The patient did have palpable bladder on exam but patient was adamantly refusing Durant catheter. CT of the abdomen pelvis was obtained due to the patient's generalized abdominal pain and did demonstrated bilateral hydronephrosis, large distended bladder as well as a distended gallbladder which could be concerning for acute cholecystitis. Also right basilar consolidation concerning for pneumonia or aspiration as well as mild subsegmental atelectasis or pneumonia in the left lower lobe. Review of Systems Review of Systems: 12 systems were reviewed with pertinent positives and negatives per HPI. Except as documented in the HPI, all other systems were reviewed and are negative. [facility] Past Medical History Medical History (Updated 04/04/23 @ 04:13 by Bethany Fernandez DO) Alcohol abuse Chronic kidney disease Chronic pain syndrome Depression with anxiety Gout History of GI bleed History of meningitis Hydronephrosis Hyperlipidemia Hypertension Legally blind Left eye YOSEPH on CPAP Peripheral neuropathy Urinary retention Surgical History Surgical History (Updated 04/04/23 @ 04:03 by Bethany Fernandez DO) H/O cataract extraction H/O hand surgery H/O inguinal hernia repair H/O Spinal surgery L3 through L5 laminectomy with fusion History of tonsillectomy Family History Family History Mother Patient's mother is in good health Father Patient's father is Congestive heart failure Acute myocardial infarction Hypertension Grandparent Cerebrovascular accident Cancer Unknown No problems noted. Sibling Hypertension Sibling Hypertension Social History Social History (Updated 04/04/23 @ 04:05 by Bethany Fernandez DO) Social History: The patient lives home alone. He is a former smoker. The patient used to be heavy smoker smoking up to 2-3 packs of cigarettes for several years. The patient was known to drink 8-10 beers a day, states he drinks les
[2023-04-03 21:39] VITALS: BP 116/85; PULSE 104; RESP 17; TEMP 37.1; O2SAT 92
[2023-04-03 21:53] LABS: Creatine Kinase 954 U/L (55-170)
[2023-04-03 22:31] LABS: Troponin I 0.047 ng/mL (0.000-0.034)
[2023-04-03 23:46] LABS: Amphetamine Screen Urine Negative (Negative); Barbiturate Screen Urine Negative (Negative); Benzodiazepines Screen Urine Positive (Negative); Cannabinoid Screen Urine Negative (Negative); Cocaine Screen Urine Negative (Negative); Methadone Screen Urine Negative (Negative); Opiate Screen Urine Positive (Negative); Phencyclidine Screen Urine Negative (Negative)
[2023-04-04] VITALS (15 sets, daily range): BP systolic 103–132; BP diastolic 61–81; PULSE 78–107; RESP 15–20; TEMP 36.3–37; O2SAT 93–98; BMI 37.0
[2023-04-04] MEDS: oxyCODONE HCL (*CRX) 5 MG TAB IR 10 MG PO ×3 (01:49→20:57)
[2023-04-04] MEDS: ALPRAZolam (*CRX) 0.5 MG TABLET PO (01:50)
[2023-04-04] MEDS: SODIUM CHLORIDE 0.9% IV 1,000 ML 150 ML IV CONT ×2 (02:19→09:03)
--- NOTE | 2023-04-04 03:07 | PC.NURSE ---
This patient, Nura North, was admitted to IMU Room 206-01 at 0115. Patient/family oriented to hospital policies and general routines including ID bracelet, bed and alarms, visiting hours, pain management, procedures, bathroom and other care routines, personal items, smoking policy, room service/diet, and visiting hours. Information on how to activate the Rapid Response Team has been discussed. Patient/Family are encouraged to report perceived risks to care and to ask questions if they do not understand what they are told or what they should do.
[2023-04-04 05:10] LABS: Basophils Percent Auto 0.2 % (0.2-1.2); Eosinophils Absolute Auto 0.2 K/mm3 (0-0.3); Eosinophils Percent Auto 1.5 % (0-4.4); Hematocrit 31.7 % (42.0-52.0); Hemoglobin 9.9 g/dL (14.0-18.0); Immature Granulocyte Percent A 1.3 % (0-0.5); Lymphocytes Absolute Auto 0.93 K/mm3 (0.9-3.2); Mean Corpuscular HGB Conc 31.2 g/dl (32-36); Mean Corpuscular Volume 89.8 fl (80-100); Mean Platelet Volume 9.7 fl (7.4-10.4); Monocytes Absolute Auto 1.2 K/mm3 (0.1-0.6); Monocytes Percent Auto 7.9 % (2.6-8.5); Neutrophils Percent Auto 83.1 % (45.5-73.1); Platelet Count Result 484 k/mm3 (150-375); Red Blood Count 3.53 M/mm3 (4.6-6.20); Red Cell Distribution Width 16.4 % (11.5-14.5); White Blood Count 15.6 K/mm3 (4.5-10.0)
[2023-04-04 05:18] LABS: Alanine Aminotransferase 28 U/L (6-50); Alkaline Phosphatase 222 U/L (38-126); Anion Gap 15 mmol/L (8-16); Aspartate Amino Transferase 70 U/L (17-59); Bilirubin,Total 0.9 mg/dL (0.2-1.3); Blood Urea Nitrogen 70 mg/dL (9-20); Calcium 7.9 mg/dL (8.4-10.2); Carbon Dioxide 12 mmol/L (22-30); Chloride 110 mmol/L (98-107); Estimated CRCL calculation 17 ml/min; Estimated Glomerular Filt Rate 12; Glucose 82 mg/dL (65-110); Magnesium 1.5 mg/dL (1.6-2.3); Phosphorus 7.1 mg/dL (2.5-4.5); Potassium 4.3 mmol/L (3.4-5.0); Sodium 137 mmol/L (137-145)
[2023-04-04] MEDS: PANTOPRAZOLE 40 MG TABLET PO (09:12)
[2023-04-04] MEDS: THERAPEUTIC MULTIVITAMINS/MINERALS TAB (*BKC) 1 TABLET PO (09:12)
[2023-04-04] MEDS: FINASTERIDE 5 MG TABLET PO (09:13)
[2023-04-04] MEDS: HEPARIN SODIUM 5,000 UNITS/ML VIAL 5000 UNITS SUB-Q ×2 (09:14→20:55)
[2023-04-04] MEDS: PARoxetine 10 MG TABLET 30 MG PO (09:17)
[2023-04-04] MEDS: polyethylene glycoL 3350 17 GM POWD.PACK PO (09:18)
[2023-04-04] MEDS: SIMVASTATIN 20 MG TABLET PO (09:18)
[2023-04-04] MEDS: TIMOLOL MALEATE 0.5% OP SOLN 5 ML BOTTLE 1 DROP EACH EYE (09:19)
[2023-04-04] MEDS: amLODIPine BESYLATE 5 MG TABLET PO (09:20)
--- NOTE | 2023-04-04 11:45 | PM.IMPN ---
Progress Note: A&P Assessment and Plan (1) Sepsis associated hypotension: Code(s): A41.9 - Sepsis, unspecified organism; I95.9 - Hypotension, unspecified Status: Acute (2) Chronic venous stasis dermatitis of both lower extremities: Code(s): I87.2 - Venous insufficiency (chronic) (peripheral) Status: Acute (3) Wound of buttock: Qualifiers: Encounter type: initial encounter Laterality: unspecified laterality Qualified Code(s): S31.809A - Unspecified open wound of unspecified buttock, initial encounter Code(s): S31.809A - Unspecified open wound of unspecified buttock, initial encounter Status: Acute (4) Urinary retention with incomplete bladder emptying: Code(s): R33.9 - Retention of urine, unspecified Status: Acute (5) Urinary tract infection: Qualifiers: Hematuria presence: with hematuria Urinary tract infection type: site unspecified Qualified Code(s): N39.0 - Urinary tract infection, site not specified; R31.9 - Hematuria, unspecified Code(s): N39.0 - Urinary tract infection, site not specified Status: Acute (6) Elevated troponin: Code(s): R79.89 - Other specified abnormal findings of blood chemistry Status: Acute (7) Adult failure to thrive: Code(s): R62.7 - Adult failure to thrive Status: Acute (8) Acute on chronic kidney failure: Qualifiers: Acute renal failure type: unspecified Chronic kidney disease stage: stage 3 (moderate) Chronic kidney disease stage 3 subtype: stage 3b (GFR 30-44) Qualified Code(s): N17.9 - Acute kidney failure, unspecified; N18.32 - Chronic kidney disease, stage 3b Code(s): N17.9 - Acute kidney failure, unspecified; N18.9 - Chronic kidney disease, unspecified Status: Acute (9) Hydronephrosis: Code(s): N13.30 - Unspecified hydronephrosis Status: Acute Plan 63M w/ PMH neurocognitive disorder at baseline with noncompliance, depression and anxiety, gout, previous alcohol abuse, previous suicide attempt with Tylenol 02/2023, CKD stage 3, morbid obesity, BPH with urinary retention, chronic pain syndrome and chronic narcotic dependence, HLD, HTN, YOSEPH on CPAP. Admitted on 04/03/23 for acute renal failure, UTI, and hydronephrosis all likely due to urinary retention. During evaluation today the mother Zita is present. She is involved in the discussion as the patient is noncompliant and a poor historian. Detailed explanation on the patient's condition and risk of not adhering to therapy was explained. The patient is immediately amenable to all therapies. Last admission he had a Durant placed for urinary retention and was supposed to follow with Urology this next week. However after getting home from acute rehab which is where he was sent after he presented to [facility], the mother reports at home there was no urine in the Durant bag for several days and then the patient ripped out the Durant. Somewhere along the way he developed a UTI and we will continue ceftriaxone. More importantly the patient has urinary retention and a PureWick in place as he has been refusing Durant catheter placement. As a result he has bilateral hydronephrosis and acute renal failure nonoliguric. He is developing worsening metabolic acidosis as a result so we will consult Nephrology to assist. Leukocytosis is improving so we will monitor that and follow the urine culture. Troponins are downtrending which was probably a result of his BOAZ and he denies any chest pain or shortness of breath. Consult urology pending placement of Durant catheter and further management of his obstruction. He will need to be placed after this he does live at home alone and has a neurocognitive disorder at baseline. Consult PT OT. DNR, the patient confirmed this to me again today. Heparin subcutaneous. Normal saline at 150 cc/hour. Guarded condition. Subjective Date/time seen: 04/04/23 11:45 Interval his
--- NOTE | 2023-04-04 13:16 | WPDURCON ---
Assessment and Plan Assessment and plan (1) Urinary retention with incomplete bladder emptying: Code(s): R33.9 - Retention of urine, unspecified Status: Acute (2) Acute on chronic kidney failure: Qualifiers: Acute renal failure type: unspecified Chronic kidney disease stage: stage 3 (moderate) Chronic kidney disease stage 3 subtype: stage 3b (GFR 30-44) Qualified Code(s): N17.9 - Acute kidney failure, unspecified; N18.32 - Chronic kidney disease, stage 3b Code(s): N17.9 - Acute kidney failure, unspecified; N18.9 - Chronic kidney disease, unspecified Status: Acute Assessment and Plan: Urinary retention with marked bladder distention and bilateral hydronephrosis. This is likely the cause for his acute kidney injury, to some extent. Recommend leaving indwelling catheter until outpatient cystoscopy which is scheduled for April 07. Urology Consult Note HPI Date Seen: 04/04/23 Requesting Physician: Sirena Weston MD Primary Care Provider: Evelio Mckee, Consult Narrative Narrative: Nura North is a 63 year old male, who has extensive medical and psychological comorbidities, who was admitted with generalized weakness. He is known to Dr. Beth following a recent outpatient visit in January 2023 when he was found to be in urinary retention. At that time he was catheterized for bladder volume of 800 cc. He is scheduled for outpatient evaluation including cystoscopy later this week. He was admitted with generalized weakness. Sometime in the last several weeks he, reportedly, traumatically removed his own catheter. At the time of admission he was found to be in acute kidney failure with a serum creatinine > 6.0. CT scan the abdomen pelvis shows marked bladder distention with bilateral hydronephrosis. Review of Systems Cardiovascular: Cardiovascular: Denies chest pain, Denies lightheadedness, Denies palpitations and Denies dyspnea Respiratory: Respiratory: Denies dyspnea Gastrointestinal: Gastrointestinal: Denies diarrhea, Denies nausea and Denies vomiting Genitourinary: Genitourinary: Denies hematuria and Denies dysuria Endocrine: Endocrine: Denies palpitations PENDING SALE TO [facility] Past Medical History Medical History (Updated 04/04/23 @ 04:13 by Bethany Fernandez DO) Alcohol abuse Chronic kidney disease Chronic pain syndrome Depression with anxiety Gout History of GI bleed History of meningitis Hydronephrosis Hyperlipidemia Hypertension Legally blind Left eye YOSEPH on CPAP Peripheral neuropathy Urinary retention Surgical History Surgical History (Updated 04/04/23 @ 04:03 by Bethany Fernandez DO) H/O cataract extraction H/O hand surgery H/O inguinal hernia repair H/O Spinal surgery L3 through L5 laminectomy with fusion History of tonsillectomy Family History Family History Mother Patient's mother is in good health Father Patient's father is Congestive heart failure Acute myocardial infarction Hypertension Grandparent Cerebrovascular accident Cancer Unknown No problems noted. Sibling Hypertension Sibling Hypertension Social History Social History (Updated 04/04/23 @ 04:05 by Bethany Fernandez DO) Social History: The patient lives home alone. He is a former smoker. The patient used to be heavy smoker smoking up to 2-3 packs of cigarettes for several years. The patient was known to drink 8-10 beers a day, states he drinks less than that now and not every day. He is retired and disabled in 1979. His mother Zita leonard is his storeperson. Code status: DNR/DNI Smoking packs per day: 3 Smoking cigarettes per day: 60.0 Years smoked: 15 Smoking pack-years: 45.00 Smoking status: Former smoker Tobacco type: cigarettes Smokeless tobacco user: chewing tobacco Second hand tobacco smoke exposure: No Smoking end date: 03/29/04
--- NOTE | 2023-04-04 13:35 | P.CONNP_ITS ---
Assessment and Plan Assessment and plan (1) BOAZ (acute kidney injury): Code(s): N17.9 - Acute kidney failure, unspecified Status: Acute Assessment and Plan: * suspect due to #4 and suspected early sepsis * admission UA reveals possible UTI present * catheter in place and good urine output noted * follow repeat labs and UOP (2) Chronic kidney disease, stage 3: Code(s): N18.30 - Chronic kidney disease, stage 3 unspecified Status: Acute Assessment and Plan: * from review of records, his baseline creatinine runs 1.5 - 1.8mg/dl * this causes him to fluctuate between CKD stage 3A and stage 3B * presumably due to hypertension, vascular disease, and recurrent bouts of urinary retention and BPH (3) Sepsis: Code(s): A41.9 - Sepsis, unspecified organism Status: Acute Assessment and Plan: * as noted by tachycardia, hypotension, and elevated WBC on admission * presumed source is UTI although imaging suggestive of acute cholecystitis * follow culture data * on antibiotics (4) Urinary retention: Code(s): R33.9 - Retention of urine, unspecified Status: Chronic Assessment and Plan: * chornic issue/problems as noted by history * admission CT scan noted: * distended urinary bladder, bladder wall thickening, persistent moderate bilateral hydroureteronephrosis; prostate enlargement and calcification * Urology recommendations noted * catheter in place (5) Metabolic acidosis: Code(s): E87.20 - Acidosis, unspecified Status: Acute Assessment and Plan: * due to BOAZ/ARF * start oral bicarbonate to compensate * consider IV sodium bicarbonate if continues to worsen (6) Urinary tract infection: Qualifiers: Hematuria presence: with hematuria Urinary tract infection type: site unspecified Qualified Code(s): N39.0 - Urinary tract infection, site not specified; R31.9 - Hematuria, unspecified Code(s): N39.0 - Urinary tract infection, site not specified Status: Acute Assessment and Plan: * as suspected based on admission UA * urine culture pending * on antibiotics (7) Chronic pain syndrome: Code(s): G89.4 - Chronic pain syndrome Status: Chronic Assessment and Plan: * on pain medications I will continue follow patient with you while he remains hospitalized and make further recommendations as needed. Thank you for allowing me to participate in care of this patient. History of Present Illness Reason for Consult Consult date: 04/04/23 Reason for consult: acute renal failure (on chronic kidney disease) Chief Complaint Chief complaint: Failure to Thrive, Dehydration, Elevated Troponin, History of Present Illness Narrative: A great majority of the information I have obtained is from review of the electronic medical records and discussion with the physician / nurses involved in the patient's care as the patient is a extremely poor historian with regard to the events that led to his presentation in subsequent admission here to [facility]. The patient is a 63-year-old male with a past medical history as outlined below who presented to [facility] Emergency Room via EMS for further evaluation of generalized weakness. Apparently, the patient's family called EMS because the patient had been extremely weak and dehydrated. upon EMS arrival, the patient was apparently in his own stool and urine. Is not entirely clear how long the patient was in this situation prior to family calling the EMS. Prior
--- NOTE | 2023-04-04 13:35 | PM.CNNEP ---
Assessment and Plan Assessment and plan (1) BOAZ (acute kidney injury): Code(s): N17.9 - Acute kidney failure, unspecified Status: Acute Assessment and Plan: suspect due to #4 and suspected early sepsis admission UA reveals possible UTI present catheter in place and good urine output noted follow repeat labs and UOP (2) Chronic kidney disease, stage 3: Code(s): N18.30 - Chronic kidney disease, stage 3 unspecified Status: Acute Assessment and Plan: from review of records, his baseline creatinine runs 1.5 - 1.8mg/dl this causes him to fluctuate between CKD stage 3A and stage 3B presumably due to hypertension, vascular disease, and recurrent bouts of urinary retention and BPH (3) Sepsis: Code(s): A41.9 - Sepsis, unspecified organism Status: Acute Assessment and Plan: as noted by tachycardia, hypotension, and elevated WBC on admission presumed source is UTI although imaging suggestive of acute cholecystitis follow culture data on antibiotics (4) Urinary retention: Code(s): R33.9 - Retention of urine, unspecified Status: Chronic Assessment and Plan: chornic issue/problems as noted by history admission CT scan noted: distended urinary bladder, bladder wall thickening, persistent moderate bilateral hydroureteronephrosis; prostate enlargement and calcification Urology recommendations noted catheter in place (5) Metabolic acidosis: Code(s): E87.20 - Acidosis, unspecified Status: Acute Assessment and Plan: due to BOAZ/ARF start oral bicarbonate to compensate consider IV sodium bicarbonate if continues to worsen (6) Urinary tract infection: Qualifiers: Hematuria presence: with hematuria Urinary tract infection type: site unspecified Qualified Code(s): N39.0 - Urinary tract infection, site not specified; R31.9 - Hematuria, unspecified Code(s): N39.0 - Urinary tract infection, site not specified Status: Acute Assessment and Plan: as suspected based on admission UA urine culture pending on antibiotics (7) Chronic pain syndrome: Code(s): G89.4 - Chronic pain syndrome Status: Chronic Assessment and Plan: on pain medications I will continue follow patient with you while he remains hospitalized and make further recommendations as needed. Thank you for allowing me to participate in care of this patient. History of Present Illness Reason for Consult Consult date: 04/04/23 Reason for consult: acute renal failure (on chronic kidney disease) Chief Complaint Chief complaint: Failure to Thrive, Dehydration, Elevated Troponin, History of Present Illness Narrative: A great majority of the information I have obtained is from review of the electronic medical records and discussion with the physician / nurses involved in the patient's care as the patient is a extremely poor historian with regard to the events that led to his presentation in subsequent admission here to [facility]. The patient is a 63-year-old male with a past medical history as outlined below who presented to [facility] Emergency Room via EMS for further evaluation of generalized weakness. Apparently, the patient's family called EMS because the patient had been extremely weak and dehydrated. upon EMS arrival, the patient was apparently in his own stool and urine. Is not entirely clear how long the patient was in this situation prior to family calling the EMS. Prior to going home, the patient was actually in rehab and during his stay there, he apparently self DC his Durant catheter. He apparently left acute rehab against medical advice as he felt that he was just laying in bed and not actually getting any appropriate therapy. The exact details of what occurred during his acute rehab stay are not entirely clear , particularly with regard to when he pulled out his own Durant cath
--- NOTE | 2023-04-04 14:10 | PCOTNOTE ---
Attempted occupational therapy evaluation this date, pt was sleeping upon arrival, pt was drowsy upon waking and requested to come back tomorrow. Following.
--- NOTE | 2023-04-04 17:30 | ECG_ITS ---
Measurements Intervals [place] Rate: 96 P: MD: 0 QRS: 119 QRSD: 87 T: 146 QT: 327 QTc: 413 Interpretive Statements SINUS OR ECTOPIC ATRIAL RHYTHM T WAVE ABNORMALITY IN HIGH LATERAL LEADS- CONSIDER ISCHEMIA BASELINE ARTIFACT- I, III, AVR, AVL, V1-V2 ABNORMAL ECG COMPARED TO ECG 04/03/2023 13:14:46 T WAVE ABNORMALITY NOW PRESENT Electronically Signed On 04-05-2023 14:55:21 INSULATION MACHINE OPERATOR by Navi Liao D.O.
[2023-04-04 17:59] LABS: Creatinine Urine 36.5 mg/dL; Total Protein Urine Random 42 mg/dL; Ur Ttl Prot Creatinine Ratio 1.15 mg/mg (0-0.20)
[2023-04-04] MEDS: SODIUM BICARBONATE TAB 650 MG TABLET PO (18:00)
[2023-04-04 18:11] LABS: Sodium Urine Random 72 meq/L
[2023-04-04 19:04] LABS: Eosinophil Urine None Seen % (None Seen); Urine Eos QC 2nd Tech Confirmed
[2023-04-04] MEDS: methocarbamoL 750 MG TABLET 1500 MG PO (20:53)
[2023-04-04] MEDS: ESCITALOPRAM OXALATE 5 MG TABLET 15 MG PO (20:53)
[2023-04-04] MEDS: PREGABALIN (*CRX) 75 MG CAPSULE 150 MG PO (20:54)
[2023-04-04] MEDS: traZODone HCL 50 MG TABLET 150 MG PO (20:55)
[2023-04-04] MEDS: TAMSULOSIN HCL 0.4 MG CAPSULE PO (20:55)
[2023-04-05] VITALS (16 sets, daily range): BP systolic 100–140; BP diastolic 56–73; PULSE 88–104; RESP 16–22; TEMP 36.2–37.4; O2SAT 92–100; BMI 38.9
[2023-04-05] MEDS: SODIUM CHLORIDE 0.9% IV 1,000 ML 100 ML IV CONT ×2 (03:06→15:20)
[2023-04-05 05:23] LABS: Basophils Percent Auto 0.2 % (0.2-1.2); Eosinophils Absolute Auto 0.2 K/mm3 (0-0.3); Eosinophils Percent Auto 1.6 % (0-4.4); Hematocrit 28.9 % (42.0-52.0); Hemoglobin 9.4 g/dL (14.0-18.0); Immature Granulocyte Absolute 0.12 K/mm3 (0.00-0.031); Lymphocytes Absolute Auto 1.34 K/mm3 (0.9-3.2); Lymphocytes Percent Auto 10.9 % (18.3-44.2); Mean Corpuscular HGB Conc 32.5 g/dl (32-36); Mean Corpuscular Hemoglobin 28.5 pg (26-34); Mean Corpuscular Volume 87.6 fl (80-100); Mean Platelet Volume 9.4 fl (7.4-10.4); Monocytes Percent Auto 8.4 % (2.6-8.5); Neutrophils Absolute Auto 9.6 K/mm3 (1.3-6.7); Neutrophils Percent Auto 77.9 % (45.5-73.1); Platelet Count Result 429 k/mm3 (150-375); Red Cell Distribution Width 16.2 % (11.5-14.5); White Blood Count 12.3 K/mm3 (4.5-10.0)
[2023-04-05 05:34] LABS: Creatine Kinase 312 U/L (55-170)
[2023-04-05 05:45] LABS: Alanine Aminotransferase 22 U/L (6-50); Albumin Level 2.7 g/dL (3.5-5.1); Alkaline Phosphatase 313 U/L (38-126); Anion Gap 11 mmol/L (8-16); Aspartate Amino Transferase 51 U/L (17-59); Bilirubin,Total 0.6 mg/dL (0.2-1.3); Blood Urea Nitrogen 57 mg/dL (9-20); Calcium 8.1 mg/dL (8.4-10.2); Carbon Dioxide 14 mmol/L (22-30); Chloride 113 mmol/L (98-107); Estimated CRCL calculation 27 ml/min; Estimated Glomerular Filt Rate 20; Glucose 89 mg/dL (65-110); Magnesium 1.3 mg/dL (1.6-2.3); Potassium 4.1 mmol/L (3.4-5.0); Sodium 138 mmol/L (137-145)
[2023-04-05 05:55] LABS: Procalcitonin 0.7 ng/mL
[2023-04-05 06:14] LABS: Urea Random Urine 326 MG/DL
--- NOTE | 2023-04-05 08:48 | PM.IMPN ---
Progress Note: A&P Assessment and Plan (1) Metabolic acidosis: Code(s): E87.20 - Acidosis, unspecified Status: Acute (2) Sepsis: Code(s): A41.9 - Sepsis, unspecified organism Status: Acute (3) Chronic kidney disease, stage 3: Code(s): N18.30 - Chronic kidney disease, stage 3 unspecified Status: Acute (4) Urinary tract infection: Qualifiers: Hematuria presence: with hematuria Urinary tract infection type: site unspecified Qualified Code(s): N39.0 - Urinary tract infection, site not specified; R31.9 - Hematuria, unspecified Code(s): N39.0 - Urinary tract infection, site not specified Status: Acute (5) Acute on chronic kidney failure: Qualifiers: Acute renal failure type: unspecified Chronic kidney disease stage: stage 3 (moderate) Chronic kidney disease stage 3 subtype: stage 3b (GFR 30-44) Qualified Code(s): N17.9 - Acute kidney failure, unspecified; N18.32 - Chronic kidney disease, stage 3b Code(s): N17.9 - Acute kidney failure, unspecified; N18.9 - Chronic kidney disease, unspecified Status: Acute (6) Adult failure to thrive: Code(s): R62.7 - Adult failure to thrive Status: Acute (7) Hydronephrosis: Code(s): N13.30 - Unspecified hydronephrosis Status: Acute (8) Urinary retention: Code(s): R33.9 - Retention of urine, unspecified Status: Chronic Plan 63M w/ PMH neurocognitive disorder at baseline with noncompliance, stasis dermatitis, depression and anxiety, gout, previous alcohol abuse, previous suicide attempt with Tylenol 02/2023, CKD stage 3, morbid obesity, BPH with urinary retention, chronic pain syndrome and chronic narcotic dependence, HLD, HTN, YOSEPH on CPAP. Admitted on 04/03/23 for acute renal failure, UTI, and hydronephrosis all likely due to urinary retention. Mr. North has an underlying neurocognitive disorder and usually lives at home alone. He had a previous recent suicide attempt and after discharge from [facility] he return to another hospital and ended up at acute rehab. He was then sent home and had a Durant in. He was supposed to have a cystoscopy with Urology on the . His mother Zita who provides better history reports his Durant was not draining for a few days. He then ripped out his Durant. He presents with acute renal failure and hydronephrosis due to urinary retention and not having the Durant in. He was heavily counseled and now is amenable to having the Durant catheter in. Urology has been consulted and they suggest leaving it in until his cystoscopy on the . For a concurrent UTI he is being treated with ceftriaxone. Nephrology has been consulted. His metabolic acidosis and acute renal failure appeared to be improving. He remains on 100 cc of normal saline and that can continue-this would combat a postobstructive diuresis as well. Would consider discontinuing this tomorrow although. He is also on sodium bicarbonate tabs-adjust that as indicated. Continue Flomax Troponins have been flat. He denies chest pain. Magnesium replaced recheck in a.m. The patient is very weak and does not appear to be able to take care of himself at home and much of this is compounded by his failure to thrive complicated by a underlying neurocognitive disorder. Therapy has been ordered and placement is probably best. HSC. DNR. Stable. Subjective Date/time seen: 04/05/23 08:48 Interval history: NAOE. pt unable to help himself shift in bed. Review of Systems Review of Systems: All systems reviewed & are unremarkable except as noted in HPI and below (Subjective) Exam Const: General: comfortable and no acute distress Other: Generally weak Resp: Effort & Inspection: normal respiratory effort Auscultation: clear to auscultation bilaterally Cardio: Rate: regular rate Rhythm: regular rhythm GI: GI Palp: No Tenderness to palpation present (GI) Urinary Catheter:
[2023-04-05] MEDS: MAGNESIUM SULF 2 GM/WATER 50ML 2 GM/50 ML BAG IVPB (09:13)
[2023-04-05] MEDS: PARoxetine 10 MG TABLET 30 MG PO (09:14)
[2023-04-05] MEDS: methocarbamoL 750 MG TABLET 1500 MG PO ×2 (09:14→13:05)
[2023-04-05] MEDS: PANTOPRAZOLE 40 MG TABLET PO (09:14)
[2023-04-05] MEDS: SODIUM BICARBONATE TAB 650 MG TABLET PO (09:14)
[2023-04-05] MEDS: amLODIPine BESYLATE 5 MG TABLET PO (09:14)
[2023-04-05] MEDS: THERAPEUTIC MULTIVITAMINS/MINERALS TAB (*BKC) 1 TABLET PO (09:14)
[2023-04-05] MEDS: FINASTERIDE 5 MG TABLET PO (09:14)
[2023-04-05] MEDS: SIMVASTATIN 20 MG TABLET PO (09:15)
[2023-04-05] MEDS: PREGABALIN (*CRX) 75 MG CAPSULE 150 MG PO ×2 (09:15→13:05)
[2023-04-05] MEDS: HEPARIN SODIUM 5,000 UNITS/ML VIAL 5000 UNITS SUB-Q ×2 (09:15→20:57)
[2023-04-05] MEDS: polyethylene glycoL 3350 17 GM POWD.PACK PO (09:16)
[2023-04-05] MEDS: TIMOLOL MALEATE 0.5% OP SOLN 5 ML BOTTLE 1 DROP EACH EYE (09:16)
--- NOTE | 2023-04-05 09:37 | P.PNNP_ITS ---
Progress Note: A&P Assessment and Plan (1) BOAZ (acute kidney injury): Code(s): N17.9 - Acute kidney failure, unspecified Status: Acute Assessment and Plan: * suspect due to #4 and suspected early sepsis * evaluation noted: * imaging with evidence of onbstruction * urine electrolytes are non-prerenal * urine eosinophils negative * CPK mildly elevated but trending down * UA reveals suspected UTI (but culture negative) * catheter in place and good urine output noted * follow repeat labs and UOP (2) Chronic kidney disease, stage 3: Code(s): N18.30 - Chronic kidney disease, stage 3 unspecified Status: Chronic Assessment and Plan: * from review of records, his baseline creatinine runs 1.5 - 1.8mg/dl * this causes him to fluctuate between CKD stage 3A and stage 3B * presumably due to hypertension, vascular disease, and recurrent bouts of urinary retention and BPH (3) Sepsis: Code(s): A41.9 - Sepsis, unspecified organism Status: Acute Assessment and Plan: * as noted by tachycardia, hypotension, and elevated WBC on admission * presumed source is UTI although imaging suggestive of acute cholecystitis * follow culture data * on antibiotics (4) Urinary retention: Code(s): R33.9 - Retention of urine, unspecified Status: Chronic Assessment and Plan: * chornic issue/problems as noted by history * admission CT scan noted: * distended urinary bladder, bladder wall thickening, persistent moderate bilateral hydroureteronephrosis; prostate enlargement and calcification * Urology recommendations noted * catheter in place (5) Metabolic acidosis: Code(s): E87.20 - Acidosis, unspecified Status: Acute Assessment and Plan: * due to BOAZ/ARF * on oral bicarbonate to compensate * consider IV sodium bicarbonate if worsen * follow CO2 levels (6) Urinary tract infection: Qualifiers: Hematuria presence: with hematuria Urinary tract infection type: site unspecified Qualified Code(s): N39.0 - Urinary tract infection, site not specified; R31.9 - Hematuria, unspecified Code(s): N39.0 - Urinary tract infection, site not specified Status: Acute Assessment and Plan: * as suspected based on admission UA * urine culture negative * on antibiotics (7) Chronic pain syndrome: Code(s): G89.4 - Chronic pain syndrome Status: Chronic Assessment and Plan: * on pain medications * if increased lethargy persists, may need to back off on sedative medications... Will continue to follow. Subjective Date/time seen: 04/05/23 09:37 Interval history: Follow-up for acute kidney injury/acute renal failure on chronic kidney disease. Renal function continues to improve since admission with current interventions/therapy; no apparent distress other than persistent weakness making it difficult to move around in bed although he is also quite sleepy/lethargic; no issues/events overnight or earlier this morning. Exam Narrative: General: large male in NAD Heart: normal S1 and S2; no rub Lungs: clear to auscultation Abdomen: soft, nontender, nondistended, positive bowel sounds Extremities: no cyanosis or clubbing; no edema Skin: warm and dry Objective Data Vital Signs Vital Signs: Vital Signs Temp Pulse Resp BP Pulse Ox O2
--- NOTE | 2023-04-05 09:37 | PM.PNNEP ---
Progress Note: A&P Assessment and Plan (1) BOAZ (acute kidney injury): Code(s): N17.9 - Acute kidney failure, unspecified Status: Acute Assessment and Plan: suspect due to #4 and suspected early sepsis evaluation noted: imaging with evidence of onbstruction urine electrolytes are non-prerenal urine eosinophils negative CPK mildly elevated but trending down UA reveals suspected UTI (but culture negative) catheter in place and good urine output noted follow repeat labs and UOP (2) Chronic kidney disease, stage 3: Code(s): N18.30 - Chronic kidney disease, stage 3 unspecified Status: Chronic Assessment and Plan: from review of records, his baseline creatinine runs 1.5 - 1.8mg/dl this causes him to fluctuate between CKD stage 3A and stage 3B presumably due to hypertension, vascular disease, and recurrent bouts of urinary retention and BPH (3) Sepsis: Code(s): A41.9 - Sepsis, unspecified organism Status: Acute Assessment and Plan: as noted by tachycardia, hypotension, and elevated WBC on admission presumed source is UTI although imaging suggestive of acute cholecystitis follow culture data on antibiotics (4) Urinary retention: Code(s): R33.9 - Retention of urine, unspecified Status: Chronic Assessment and Plan: chornic issue/problems as noted by history admission CT scan noted: distended urinary bladder, bladder wall thickening, persistent moderate bilateral hydroureteronephrosis; prostate enlargement and calcification Urology recommendations noted catheter in place (5) Metabolic acidosis: Code(s): E87.20 - Acidosis, unspecified Status: Acute Assessment and Plan: due to BOAZ/ARF on oral bicarbonate to compensate consider IV sodium bicarbonate if worsen follow CO2 levels (6) Urinary tract infection: Qualifiers: Hematuria presence: with hematuria Urinary tract infection type: site unspecified Qualified Code(s): N39.0 - Urinary tract infection, site not specified; R31.9 - Hematuria, unspecified Code(s): N39.0 - Urinary tract infection, site not specified Status: Acute Assessment and Plan: as suspected based on admission UA urine culture negative on antibiotics (7) Chronic pain syndrome: Code(s): G89.4 - Chronic pain syndrome Status: Chronic Assessment and Plan: on pain medications if increased lethargy persists, may need to back off on sedative medications... Will continue to follow. Subjective Date/time seen: 04/05/23 09:37 Interval history: Follow-up for acute kidney injury/acute renal failure on chronic kidney disease. Renal function continues to improve since admission with current interventions/therapy; no apparent distress other than persistent weakness making it difficult to move around in bed although he is also quite sleepy/lethargic; no issues/events overnight or earlier this morning. Exam Narrative: General: large male in NAD Heart: normal S1 and S2; no rub Lungs: clear to auscultation Abdomen: soft, nontender, nondistended, positive bowel sounds Extremities: no cyanosis or clubbing; no edema Skin: warm and dry Objective Data Vital Signs Vital Signs: Vital Signs Temp Pulse Resp BP Pulse Ox O2 Del Method 04/05/23 08:00 94 Room Air 04/05/23 08:00 99 04/05/23 07:47 97.2 F L 100 22 H 100/57 L 92 04/05/23 06:00 96 04/05/23 04:00 99.4 F 102 H 18 113/60 94 04/05/23 04:00 98 16 94 Room Air 04/05/23 04:00 98 04/05/23 02:00 102 H 04/05/23 00:00 104 H 16 94 Room Air 04/05/23 00:00 104 H 04/05/23 00:00 98.7 F 101 H 16 140/73 94 04/04/23 21:34 104 H 04/04/23 20:00 106 H 18 94 Room Air 04/04/23 20:00 106 H 04/04/23 20:28 98.6 F 107 H 18 132/81 94 04/04/23 16:00 97.4 F L 99 20 106/6
--- NOTE | 2023-04-05 11:09 | PCPTNOTE ---
Attempted PT evaluation, pt not alert enough to participate in skilled therapy. Will follow.
[2023-04-05] MEDS: SODIUM BICARBONATE 8.4% 150 MEQ in DEXTROSE 5% 1,000 ML 1,000 ML 100 MEQ IV CONT (16:30)
[2023-04-05 17:01] LABS: Alveolar/Arterial O2 Gradient 56.9 mmHg; Base Excess ABG -9.9 mEq/l (+/-2.0); Fractional Inspired Oxygen 21 %; HCO3 ABG 14.4 mEq/l (22.0-26.0); Oxygen Content ABG 15.4 %vol (16.0-22.0); Oxygen Saturation ABG 90.1 % (95.0-100.0); Oxyhemoglobin 89.5 % THb (90.0-100.0); PCO2 ABG 27.4 mmHg (35.0-45.0); PO2 FiO2 Ratio Arterial Blood 2.86 %; Total Hemoglobin 12.2 g/dL (12.0-18.0); pH ABG 7.339 (7.350-7.450)
[2023-04-05 17:02] LABS: Device ROOM AIR; Modified Allen's Test Pass; Site Drawn LEFT RADIAL
--- NOTE | 2023-04-05 17:30 | ECG_ITS ---
Measurements Intervals [place] Rate: 99 P: 39 [place]: 199 QRS: 48 QRSD: 107 T: 32 QT: 353 QTc: 455 Interpretive Statements SINUS RHYTHM LOW QRS VOLTAGE IN LIMB LEADS BORDERLINE ECG COMPARED TO ECG 04/04/2023 17:30:50 SINUS RHYTHM NOW PRESENT Electronically Signed On 04-05-2023 19:20:22 CERTIFIED [employer] by Navi Liao D.O.
[2023-04-05] MEDS: NALOXONE HCL 0.4 MG/ML VIAL IV PUSH (17:31)
[2023-04-05 17:36] LABS: Alanine Aminotransferase 21 U/L (6-50); Albumin Level 2.6 g/dL (3.5-5.1); Alkaline Phosphatase 310 U/L (38-126); Anion Gap 13 mmol/L (8-16); Aspartate Amino Transferase 48 U/L (17-59); Bilirubin,Total 0.7 mg/dL (0.2-1.3); Blood Urea Nitrogen 51 mg/dL (9-20); Calcium 7.9 mg/dL (8.4-10.2); Carbon Dioxide 14 mmol/L (22-30); Chloride 113 mmol/L (98-107); Estimated CRCL calculation 34 ml/min; Estimated Glomerular Filt Rate 25; Glucose 111 mg/dL (65-110); Potassium 3.9 mmol/L (3.4-5.0); Sodium 140 mmol/L (137-145)
[2023-04-05 17:43] LABS: Basophils Percent Auto 0.2 % (0.2-1.2); Eosinophils Absolute Auto 0.2 K/mm3 (0-0.3); Eosinophils Percent Auto 1.4 % (0-4.4); Hematocrit 26.5 % (42.0-52.0); Hemoglobin 8.8 g/dL (14.0-18.0); Immature Granulocyte Absolute 0.11 K/mm3 (0.00-0.031); Immature Granulocyte Percent A 0.8 % (0-0.5); Lymphocytes Absolute Auto 1.06 K/mm3 (0.9-3.2); Lymphocytes Percent Auto 8.1 % (18.3-44.2); Mean Corpuscular HGB Conc 33.2 g/dl (32-36); Mean Corpuscular Hemoglobin 28.5 pg (26-34); Mean Corpuscular Volume 85.8 fl (80-100); Mean Platelet Volume 9.4 fl (7.4-10.4); Monocytes Absolute Auto 1.1 K/mm3 (0.1-0.6); Monocytes Percent Auto 8.6 % (2.6-8.5); Neutrophils Absolute Auto 10.6 K/mm3 (1.3-6.7); Neutrophils Percent Auto 80.9 % (45.5-73.1); Platelet Count Result 420 k/mm3 (150-375); Red Blood Count 3.09 M/mm3 (4.6-6.20); Red Cell Distribution Width 16.2 % (11.5-14.5); White Blood Count 13.1 K/mm3 (4.5-10.0)
[2023-04-05 17:48] LABS: Troponin I 0.024 ng/mL (0.000-0.034)
[2023-04-05 18:42] LABS: Lactic Acid Reflex < 0.5 mmol/L (0.7-2.0)
[2023-04-05] MEDS: TAMSULOSIN HCL 0.4 MG CAPSULE PO (20:56)
[2023-04-05] MEDS: ESCITALOPRAM OXALATE 5 MG TABLET 15 MG PO (20:56)
[2023-04-06] VITALS (14 sets, daily range): BP systolic 111–135; BP diastolic 48–69; PULSE 82–105; RESP 14–20; TEMP 36.6–36.8; O2SAT 90–95
[2023-04-06] MEDS: SODIUM CHLORIDE 0.9% IV 1,000 ML 100 ML IV CONT ×2 (01:32→17:31)
[2023-04-06] MEDS: SODIUM BICARBONATE 8.4% 150 MEQ in DEXTROSE 5% 1,000 ML 950 ML 100 MEQ IV CONT ×2 (02:15→17:29)
[2023-04-06 05:35] LABS: Basophils Percent Auto 0.3 % (0.2-1.2); Eosinophils Absolute Auto 0.2 K/mm3 (0-0.3); Immature Granulocyte Absolute 0.11 K/mm3 (0.00-0.031); Immature Granulocyte Percent A 0.9 % (0-0.5); Lymphocytes Absolute Auto 1.72 K/mm3 (0.9-3.2); Lymphocytes Percent Auto 14.7 % (18.3-44.2); Mean Corpuscular Volume 90.1 fl (80-100); Mean Platelet Volume 9.7 fl (7.4-10.4); Monocytes Absolute Auto 1.1 K/mm3 (0.1-0.6); Monocytes Percent Auto 9.3 % (2.6-8.5); Neutrophils Absolute Auto 8.5 K/mm3 (1.3-6.7); Neutrophils Percent Auto 72.8 % (45.5-73.1); Platelet Count Result 399 k/mm3 (150-375); Red Blood Count 3.22 M/mm3 (4.6-6.20); Red Cell Distribution Width 15.9 % (11.5-14.5); White Blood Count 11.7 K/mm3 (4.5-10.0)
[2023-04-06 05:45] LABS: Anion Gap 9 mmol/L (8-16); Blood Urea Nitrogen 43 mg/dL (9-20); Calcium 8.1 mg/dL (8.4-10.2); Carbon Dioxide 17 mmol/L (22-30); Chloride 112 mmol/L (98-107); Estimated CRCL calculation 43 ml/min; Estimated Glomerular Filt Rate 34; Glucose 100 mg/dL (65-110); Magnesium 1.5 mg/dL (1.6-2.3); Potassium 3.7 mmol/L (3.4-5.0); Sodium 138 mmol/L (137-145)
[2023-04-06] MEDS: SIMVASTATIN 20 MG TABLET PO (08:15)
[2023-04-06] MEDS: SODIUM BICARBONATE TAB 650 MG TABLET PO ×2 (08:15→17:33)
[2023-04-06] MEDS: amLODIPine BESYLATE 5 MG TABLET PO (08:15)
[2023-04-06] MEDS: THERAPEUTIC MULTIVITAMINS/MINERALS TAB (*BKC) 1 TABLET PO (08:15)
[2023-04-06] MEDS: PANTOPRAZOLE 40 MG TABLET PO (08:15)
[2023-04-06] MEDS: FINASTERIDE 5 MG TABLET PO (08:16)
[2023-04-06] MEDS: HEPARIN SODIUM 5,000 UNITS/ML VIAL 5000 UNITS SUB-Q ×2 (08:16→21:46)
[2023-04-06] MEDS: PARoxetine 10 MG TABLET 30 MG PO (08:17)
--- NOTE | 2023-04-06 09:32 | PM.PNNEP ---
Progress Note: A&P Assessment and Plan (1) BOAZ (acute kidney injury): Code(s): N17.9 - Acute kidney failure, unspecified Status: Acute Assessment and Plan: slow and steady improvement noted suspect due to #4 evaluation noted: imaging with evidence of onbstruction urine electrolytes are non-prerenal urine eosinophils negative CPK mildly elevated but trending down UA reveals suspected UTI (but culture negative) catheter in place and good urine output noted follow repeat labs and UOP (2) Chronic kidney disease, stage 3: Code(s): N18.30 - Chronic kidney disease, stage 3 unspecified Status: Chronic Assessment and Plan: from review of records, his baseline creatinine runs 1.5 - 1.8mg/dl this causes him to fluctuate between CKD stage 3A and stage 3B presumably due to hypertension, vascular disease, and recurrent bouts of urinary retention and BPH (3) Sepsis: Code(s): A41.9 - Sepsis, unspecified organism Status: Acute Assessment and Plan: as noted by tachycardia, hypotension, and elevated WBC on admission presumed source is UTI although imaging suggestive of acute cholecystitis follow culture data - negative to date on antibiotics (4) Urinary retention: Code(s): R33.9 - Retention of urine, unspecified Status: Chronic Assessment and Plan: chornic issue/problems as noted by history admission CT scan noted: distended urinary bladder, bladder wall thickening, persistent moderate bilateral hydroureteronephrosis; prostate enlargement and calcification Urology recommendations noted catheter in place (5) Metabolic acidosis: Code(s): E87.20 - Acidosis, unspecified Status: Acute Assessment and Plan: due to BOAZ/ARF on oral bicarbonate to compensate wean this as renal function improves follow CO2 levels (6) Urinary tract infection: Qualifiers: Hematuria presence: with hematuria Urinary tract infection type: site unspecified Qualified Code(s): N39.0 - Urinary tract infection, site not specified; R31.9 - Hematuria, unspecified Code(s): N39.0 - Urinary tract infection, site not specified Status: Acute Assessment and Plan: as suspected based on admission UA urine culture negative on antibiotics (7) Chronic pain syndrome: Code(s): G89.4 - Chronic pain syndrome Status: Chronic Assessment and Plan: due to lethargy/somnolence yesterday, pain medications on hold follow mentation Not much else to add from renal perspective -- will continue to follow from a distance. Subjective Date/time seen: 04/06/23 09:32 Interval history: Follow-up for acute kidney injury/acute renal failure on chronic kidney disease. Increased lethargy/somnolence over the course of the day yesterday; given Narcan with improvement in mentation noted; all pain/sedative medications on hold at this time; renal function continues to improve with current therapy/interventions. Exam Narrative: General: large male in NAD Heart: normal S1 and S2; no rub Lungs: clear to auscultation Abdomen: soft, nontender, nondistended, positive bowel sounds Extremities: no cyanosis or clubbing; no edema Skin: warm and intact Objective Data Vital Signs Vital Signs: Vital Signs Temp Pulse Resp BP Pulse Ox O2 Del Method 04/06/23 07:47 98.2 F 98 14 135/69 93 04/06/23 05:35 96 04/06/23 04:00 94 04/06/23 04:46 98.2 F 105 H 20 132/60 90 04/06/23 02:00 92 04/06/23 00:00 88 04/06/23 00:00 88 04/05/23 22:00 96 04/05/23 20:00 91 20 97 Room Air 04/05/23 20:00 91 04/05/23 20:20 97.6 F 89 20 120/56 L 97 04/05/23 18:00 88 04/05/23 16:00 96 04/05/23 14:00 89 04/05/23 15:27 97.2 F L 95 20 127/59 L 95 04/05/23 12:00 93 04/05/23 11:50 98.1 F 90 22 H 112/59 L
--- NOTE | 2023-04-06 09:32 | P.PNNP_ITS ---
Progress Note: A&P Assessment and Plan (1) BOAZ (acute kidney injury): Code(s): N17.9 - Acute kidney failure, unspecified Status: Acute Assessment and Plan: * slow and steady improvement noted * suspect due to #4 * evaluation noted: * imaging with evidence of onbstruction * urine electrolytes are non-prerenal * urine eosinophils negative * CPK mildly elevated but trending down * UA reveals suspected UTI (but culture negative) * catheter in place and good urine output noted * follow repeat labs and UOP (2) Chronic kidney disease, stage 3: Code(s): N18.30 - Chronic kidney disease, stage 3 unspecified Status: Chronic Assessment and Plan: * from review of records, his baseline creatinine runs 1.5 - 1.8mg/dl * this causes him to fluctuate between CKD stage 3A and stage 3B * presumably due to hypertension, vascular disease, and recurrent bouts of urinary retention and BPH (3) Sepsis: Code(s): A41.9 - Sepsis, unspecified organism Status: Acute Assessment and Plan: * as noted by tachycardia, hypotension, and elevated WBC on admission * presumed source is UTI although imaging suggestive of acute cholecystitis * follow culture data - negative to date * on antibiotics (4) Urinary retention: Code(s): R33.9 - Retention of urine, unspecified Status: Chronic Assessment and Plan: * chornic issue/problems as noted by history * admission CT scan noted: * distended urinary bladder, bladder wall thickening, persistent moderate bilateral hydroureteronephrosis; prostate enlargement and calcification * Urology recommendations noted * catheter in place (5) Metabolic acidosis: Code(s): E87.20 - Acidosis, unspecified Status: Acute Assessment and Plan: * due to BOAZ/ARF * on oral bicarbonate to compensate * wean this as renal function improves * follow CO2 levels (6) Urinary tract infection: Qualifiers: Hematuria presence: with hematuria Urinary tract infection type: site unspecified Qualified Code(s): N39.0 - Urinary tract infection, site not specified; R31.9 - Hematuria, unspecified Code(s): N39.0 - Urinary tract infection, site not specified Status: Acute Assessment and Plan: * as suspected based on admission UA * urine culture negative * on antibiotics (7) Chronic pain syndrome: Code(s): G89.4 - Chronic pain syndrome Status: Chronic Assessment and Plan: * due to lethargy/somnolence yesterday, pain medications on hold * follow mentation Not much else to add from renal perspective -- will continue to follow from a distance. Subjective Date/time seen: 04/06/23 09:32 Interval history: Follow-up for acute kidney injury/acute renal failure on chronic kidney disease. Increased lethargy/somnolence over the course of the day yesterday; given Narcan with improvement in mentation noted; all pain/sedative medications on hold at th is time; renal function continues to improve with current therapy/interventions. Exam Narrative: General: large male in NAD Heart: normal S1 and S2; no rub Lungs: clear to auscultation Abdomen: soft, nontender, nondistended, positive bowel sounds Extremities: no cyanosis or clubbing; no edema Skin: warm and intact Objective Data Vital Signs Vital Signs: Vital Signs
--- NOTE | 2023-04-06 15:50 | WPDUROPN2 ---
Progress Note: A&P Assessment and Plan (1) Chronic kidney disease, stage 3: Code(s): N18.30 - Chronic kidney disease, stage 3 unspecified Status: Chronic (2) Urinary retention with incomplete bladder emptying: Code(s): R33.9 - Retention of urine, unspecified Status: Acute (3) Acute kidney injury superimposed on chronic kidney disease: Code(s): N17.9 - Acute kidney failure, unspecified; N18.9 - Chronic kidney disease, unspecified Status: Acute Assessment and Plan: Prompt improvement in renal function confirms underlying urinary retention as significant contribution to his renal dysfunction. This will represent a challenging case as he likely has an atonic neurogenic bladder. If that is so, he will require either long-term indwelling catheter or intermittent self catheterization - both of which may be a challenge for this patient He was scheduled for outpatient cystoscopy and urodynamics on April 07. Obviously, since he is still admitted he will not make that appointment. That will need to get rescheduled subsequent to discharge. Subjective Subjective Date/Time Seen: 04/06/23 15:50 Interval history: Tolerating catehter. Urine clear. Review of Systems Cardiovascular: Cardiovascular: Denies chest pain, Denies lightheadedness, Denies palpitations and Denies dyspnea Respiratory: Respiratory: Denies dyspnea Gastrointestinal: Gastrointestinal: Denies diarrhea, Denies nausea and Denies vomiting Genitourinary: Genitourinary: Denies hematuria and Denies dysuria Endocrine: Endocrine: Denies palpitations Exam Const: General: no acute distress Resp: Effort & Inspection: normal respiratory effort GI: Inspection: non-distended GI Palp: No abdominal tenderness and No Guarding due to palpation present (GI) Auscultation: normal bowel sounds Urinary Catheter: Urinary Catheter: patent and draining and urine clear Objective Data Vital Signs Vital Signs: Vital Signs - 24 hr 04/05/23 16:00 04/05/23 18:00 04/05/23 20:20 Temperature 97.6 F Pulse Rate 96 88 89 Respiratory Rate 20 Blood Pressure 120/56 L Pulse Oximetry 97 Oxygen Delivery 04/05/23 20:00 04/05/23 20:00 04/05/23 22:00 Temperature Pulse Rate 91 91 96 Respiratory Rate 20 Blood Pressure Pulse Oximetry 97 Oxygen Delivery Room Air 04/06/23 00:00 04/06/23 00:00 04/06/23 02:00 Temperature Pulse Rate 88 88 92 Respiratory Rate Blood Pressure Pulse Oximetry Oxygen Delivery 04/06/23 04:46 04/06/23 04:00 04/06/23 05:35 Temperature 98.2 F Pulse Rate 105 H 94 96 Respiratory Rate 20 Blood Pressure 132/60 Pulse Oximetry 90 Oxygen Delivery 04/06/23 07:47 04/06/23 10:28 04/06/23 08:00 Temperature 98.2 F Pulse Rate 98 96 Respiratory Rate 14 Blood Pressure 135/69 Pulse Oximetry 93 Oxygen Delivery Room Air 04/06/23 08:00 04/06/23 12:00 Temperature Pulse Rate 94 Respiratory Rate Blood Pressure Pulse Oximetry Oxygen Delivery Room Air Intake/Output Intake/Output: Intake & Output 04/03/23 04/04/23 04/05/23 04/06/23 23:59 23:59 23:59 23:59 Intake Total 3050 3490 2480 2220 Output Total 700 2850 3777 2702 Balance 2357 303 -2134 -942 Meds/Results Medications: Active Medications Generic Name Dose Route Start Last Admin Trade Name Freq PRN Reason Stop Dose Admin Acetaminophen 650 mg 04/03/23 17:20 Acetaminophen 325 Mg Tablet PO Q4H PRN Mild Pain (1-3) or Fever Alprazolam 0.5 mg 04/04/23 01:05 04/04/23 01:50 Alprazolam (*Crx) 0.5 Mg Tablet PO 0.5 mg TID PRN Administration Anxiety Amlodipine Besylate 5 mg 04/04/23 09:00 04/06/23 08:15 Amlodipine Besylate 5 Mg Tablet PO 5 mg DAILY ANNE Administration Escitalopram Oxalate 15 mg 04/04/23 21:00 04/05/23 20:56 Escitalopram Oxalate 5 Mg Tablet PO 15 mg HS ANNE Administration Finasteride 5 mg 04/04/23
--- NOTE | 2023-04-06 16:02 | PM.IMPN ---
Progress Note: A&P Assessment and Plan (1) Metabolic acidosis: Code(s): E87.20 - Acidosis, unspecified Status: Acute (2) Sepsis: Code(s): A41.9 - Sepsis, unspecified organism Status: Acute (3) Chronic kidney disease, stage 3: Code(s): N18.30 - Chronic kidney disease, stage 3 unspecified Status: Chronic (4) Urinary tract infection: Qualifiers: Hematuria presence: with hematuria Urinary tract infection type: site unspecified Qualified Code(s): N39.0 - Urinary tract infection, site not specified; R31.9 - Hematuria, unspecified Code(s): N39.0 - Urinary tract infection, site not specified Status: Acute (5) Acute on chronic kidney failure: Qualifiers: Acute renal failure type: unspecified Chronic kidney disease stage: stage 3 (moderate) Chronic kidney disease stage 3 subtype: stage 3b (GFR 30-44) Qualified Code(s): N17.9 - Acute kidney failure, unspecified; N18.32 - Chronic kidney disease, stage 3b Code(s): N17.9 - Acute kidney failure, unspecified; N18.9 - Chronic kidney disease, unspecified Status: Acute (6) Adult failure to thrive: Code(s): R62.7 - Adult failure to thrive Status: Acute (7) Hydronephrosis: Code(s): N13.30 - Unspecified hydronephrosis Status: Acute (8) Urinary retention: Code(s): R33.9 - Retention of urine, unspecified Status: Chronic Plan 63M w/ PMH neurocognitive disorder at baseline with noncompliance, stasis dermatitis, depression and anxiety, gout, previous alcohol abuse, previous suicide attempt with Tylenol 02/2023, CKD stage 3, morbid obesity, BPH with urinary retention, chronic pain syndrome and chronic narcotic dependence, HLD, HTN, YOSEPH on CPAP. Admitted on 04/03/23 for acute renal failure, UTI, and hydronephrosis all likely due to urinary retention. Mr. North has an underlying neurocognitive disorder and usually lives at home alone. He had a previous recent suicide attempt and after discharge from [facility] he return to another hospital and ended up at acute rehab. He was then sent home and had a Durant in. He was supposed to have a cystoscopy with Urology on the . His mother Zita who provides better history reports his Durant was not draining for a few days. He then ripped out his Durant. He presents with acute renal failure and hydronephrosis due to urinary retention and not having the Durant in. He was heavily counseled and now is amenable to having the Durant catheter in. Urology has been consulted and they suggest leaving it in until his cystoscopy on the . For a concurrent UTI he is being treated with ceftriaxone. Nephrology has been consulted. His metabolic acidosis and acute renal failure appeared to be improving. He remains on 100 cc of normal saline and that can continue-this would combat a postobstructive diuresis as well. Would consider discontinuing this tomorrow although. He is also on sodium bicarbonate tabs-adjust that as indicated. Continue Flomax Troponins have been flat. He denies chest pain. Hypomagnesia recheck mg levels continue iv fluids and iv abx watch full urine culture report Urology rounding for urinary retention Nephrology rounding for Acute on chronic kidney failure and UTI Subjective Date/time seen: 04/06/23 16:02 Interval history: Pt has catheter in situ treated for UTI and metabolic acidosis Nephrology and urology on board Review of Systems Review of Systems: no acute issues All systems reviewed & are unremarkable except as noted in HPI and below (Subjective) Exam Narrative: Weight 114.6 kg BMI 37.3 Const: General: comfortable and no acute distress Other: Generally weak HENMT: Other: Mucous membranes are dry, white plaquing to the soft palate, no oral pharyngeal erythema, head is normocephalic atraumatic Eyes: Pupils: Equal, round and reactive pupils present Other: Pupils ar
[2023-04-06] MEDS: TAMSULOSIN HCL 0.4 MG CAPSULE PO (21:46)
[2023-04-06] MEDS: ESCITALOPRAM OXALATE 5 MG TABLET 15 MG PO (21:46)
[2023-04-06] MEDS: MAGNESIUM OXIDE 200 MG TABLET PO (21:47)
[2023-04-07] VITALS (14 sets, daily range): BP systolic 125–149; BP diastolic 46–72; PULSE 78–94; RESP 22; TEMP 35.8–36.9; O2SAT 95–100
[2023-04-07] MEDS: SODIUM CHLORIDE 0.9% IV 1,000 ML 100 ML IV CONT (03:57)
[2023-04-07] MEDS: SODIUM BICARBONATE 8.4% 150 MEQ in DEXTROSE 5% 1,000 ML 950 ML 100 MEQ IV CONT (03:58)
[2023-04-07 05:13] LABS: Anion Gap 7 mmol/L (8-16); Blood Urea Nitrogen 12 mg/dL (9-20); Calcium 7.8 mg/dL (8.4-10.2); Carbon Dioxide 30 mmol/L (22-30); Chloride 103 mmol/L (98-107); Estimated CRCL calculation 157 ml/min; Estimated Glomerular Filt Rate > 60; Glucose 104 mg/dL (65-110); Magnesium 1.7 mg/dL (1.6-2.3); Sodium 140 mmol/L (137-145)
[2023-04-07] MEDS: FINASTERIDE 5 MG TABLET PO (09:52)
[2023-04-07] MEDS: THERAPEUTIC MULTIVITAMINS/MINERALS TAB (*BKC) 1 TABLET PO (09:52)
[2023-04-07] MEDS: amLODIPine BESYLATE 5 MG TABLET PO (09:52)
[2023-04-07] MEDS: PANTOPRAZOLE 40 MG TABLET PO (09:52)
[2023-04-07] MEDS: SIMVASTATIN 20 MG TABLET PO (09:52)
[2023-04-07] MEDS: PARoxetine 10 MG TABLET 30 MG PO (09:52)
[2023-04-07] MEDS: HEPARIN SODIUM 5,000 UNITS/ML VIAL 5000 UNITS SUB-Q ×2 (09:52→20:41)
[2023-04-07] MEDS: MAGNESIUM OXIDE 200 MG TABLET PO ×2 (09:53→20:40)
[2023-04-07] MEDS: TIMOLOL MALEATE 0.5% OP SOLN 5 ML BOTTLE 1 DROP EACH EYE (09:53)
[2023-04-07] MEDS: POTASSIUM CHLORIDE 20 MEQ PACKET (FOR LIQUID) 40 MEQ PO (12:22)
--- NOTE | 2023-04-07 13:42 | PM.IMPN ---
Progress Note: A&P Assessment and Plan (1) Metabolic acidosis: Code(s): E87.20 - Acidosis, unspecified Status: Acute (2) Sepsis: Code(s): A41.9 - Sepsis, unspecified organism Status: Acute (3) Chronic kidney disease, stage 3: Code(s): N18.30 - Chronic kidney disease, stage 3 unspecified Status: Chronic (4) Urinary tract infection: Qualifiers: Hematuria presence: with hematuria Urinary tract infection type: site unspecified Qualified Code(s): N39.0 - Urinary tract infection, site not specified; R31.9 - Hematuria, unspecified Code(s): N39.0 - Urinary tract infection, site not specified Status: Acute (5) Acute on chronic kidney failure: Qualifiers: Acute renal failure type: unspecified Chronic kidney disease stage: stage 3 (moderate) Chronic kidney disease stage 3 subtype: stage 3b (GFR 30-44) Qualified Code(s): N17.9 - Acute kidney failure, unspecified; N18.32 - Chronic kidney disease, stage 3b Code(s): N17.9 - Acute kidney failure, unspecified; N18.9 - Chronic kidney disease, unspecified Status: Acute (6) Adult failure to thrive: Code(s): R62.7 - Adult failure to thrive Status: Acute (7) Hydronephrosis: Code(s): N13.30 - Unspecified hydronephrosis Status: Acute (8) Urinary retention: Code(s): R33.9 - Retention of urine, unspecified Status: Chronic Plan 63M w/ PMH neurocognitive disorder at baseline with noncompliance, stasis dermatitis, depression and anxiety, gout, previous alcohol abuse, previous suicide attempt with Tylenol 02/2023, CKD stage 3, morbid obesity, BPH with urinary retention, chronic pain syndrome and chronic narcotic dependence, HLD, HTN, YOSEPH on CPAP. Admitted on 04/03/23 for acute renal failure, UTI, and hydronephrosis all likely due to urinary retention. Mr. North has an underlying neurocognitive disorder and usually lives at home alone. He had a previous recent suicide attempt and after discharge from [facility] he return to another hospital and ended up at acute rehab. He was then sent home and had a Gutierrez in. He was supposed to have a cystoscopy with Urology on the . His mother Zita who provides better history reports his Gutierrez was not draining for a few days. He then ripped out his Gutierrez. He presents with acute renal failure and hydronephrosis due to urinary retention and not having the Gutierrez in. He was heavily counseled and now is amenable to having the Gutierrez catheter in. Urology has been consulted and they suggest leaving it in until his cystoscopy on the . For a concurrent UTI he is being treated with ceftriaxone. Nephrology has been consulted. His metabolic acidosis and acute renal failure appeared to be improving. He remains on 100 cc of normal saline and that can continue-this would combat a postobstructive diuresis as well. Would consider discontinuing this tomorrow although. He is also on sodium bicarbonate tabs-adjust that as indicated. Continue Flomax , continue gutierrez Troponins have been flat. He denies chest pain. Hypomagnesia recheck mg levels continue iv fluids and iv abx watch full urine culture report Urology rounding for urinary retention Nephrology rounding for Acute on chronic kidney failure and UTI DC sodium bicarbonate DC rocephin continue IV fluids await placement Pt is medically better DC with gutierrez in situ Subjective Date/time seen: 04/07/23 13:42 Interval history: Pt has catheter in situ treated for UTI and metabolic acidosis Nephrology and urology on board Pt BC are negative UC are negative Creat is better medically doing better awaiting placement Review of Systems Review of Systems: Pt feels better Exam Const: General: comfortable and no acute distress Other: Generally weak HENMT: Other: Mucous membranes are dry, white plaquing to the soft palate, no oral pharyngeal erythema, head is n
[2023-04-07] MEDS: ESCITALOPRAM OXALATE 5 MG TABLET 15 MG PO (20:40)
[2023-04-07] MEDS: TAMSULOSIN HCL 0.4 MG CAPSULE PO (20:40)
[2023-04-08] VITALS (7 sets, daily range): BP systolic 121–130; BP diastolic 57–62; PULSE 79–87; RESP 22; TEMP 35.7–37; O2SAT 93–99
[2023-04-08] MEDS: ACETAMINOPHEN 325 MG TABLET 650 MG PO (02:48)
[2023-04-08] MEDS: traMADol HCL (*CRX) 50 MG TABLET PO (04:43)
[2023-04-08 07:24] LABS: Anion Gap 7 mmol/L (8-16); Blood Urea Nitrogen 18 mg/dL (9-20); Calcium 7.1 mg/dL (8.4-10.2); Carbon Dioxide 28 mmol/L (22-30); Chloride 103 mmol/L (98-107); Estimated CRCL calculation 77 ml/min; Estimated Glomerular Filt Rate > 60; Glucose 94 mg/dL (65-110); Potassium 3.2 mmol/L (3.4-5.0); Sodium 138 mmol/L (137-145)
--- NOTE | 2023-04-08 09:40 | PCPTNOTE ---
Patient refused treatment this session.
--- NOTE | 2023-04-08 10:09 | PC.NURSE ---
0952-Dr. Lunsford at bedside, orders to resume held medications and orders to downgrade patient to medsurg status.
[2023-04-08] MEDS: FINASTERIDE 5 MG TABLET PO (10:20)
[2023-04-08] MEDS: HEPARIN SODIUM 5,000 UNITS/ML VIAL 5000 UNITS SUB-Q (10:20)
[2023-04-08] MEDS: amLODIPine BESYLATE 5 MG TABLET PO (10:20)
[2023-04-08] MEDS: PARoxetine 10 MG TABLET 30 MG PO (10:21)
[2023-04-08] MEDS: PANTOPRAZOLE 40 MG TABLET PO (10:21)
[2023-04-08] MEDS: THERAPEUTIC MULTIVITAMINS/MINERALS TAB (*BKC) 1 TABLET PO (10:21)
[2023-04-08] MEDS: MAGNESIUM OXIDE 200 MG TABLET PO (10:21)
[2023-04-08] MEDS: oxyCODONE HCL (*CRX) 5 MG TAB IR 10 MG PO (10:22)
[2023-04-08] MEDS: TIMOLOL MALEATE 0.5% OP SOLN 5 ML BOTTLE 1 DROP EACH EYE (10:22)
[2023-04-08] MEDS: ALPRAZolam (*CRX) 0.5 MG TABLET PO ×3 (10:22→17:30)
[2023-04-08] MEDS: SIMVASTATIN 20 MG TABLET PO (10:22)
--- NOTE | 2023-04-08 13:12 | PM.IMPN ---
Progress Note: A&P Assessment and Plan (1) Metabolic acidosis: Code(s): E87.20 - Acidosis, unspecified Status: Acute (2) Sepsis: Code(s): A41.9 - Sepsis, unspecified organism Status: Acute (3) Chronic kidney disease, stage 3: Code(s): N18.30 - Chronic kidney disease, stage 3 unspecified Status: Chronic (4) Urinary tract infection: Qualifiers: Hematuria presence: with hematuria Urinary tract infection type: site unspecified Qualified Code(s): N39.0 - Urinary tract infection, site not specified; R31.9 - Hematuria, unspecified Code(s): N39.0 - Urinary tract infection, site not specified Status: Acute (5) Acute on chronic kidney failure: Qualifiers: Acute renal failure type: unspecified Chronic kidney disease stage: stage 3 (moderate) Chronic kidney disease stage 3 subtype: stage 3b (GFR 30-44) Qualified Code(s): N17.9 - Acute kidney failure, unspecified; N18.32 - Chronic kidney disease, stage 3b Code(s): N17.9 - Acute kidney failure, unspecified; N18.9 - Chronic kidney disease, unspecified Status: Acute (6) Adult failure to thrive: Code(s): R62.7 - Adult failure to thrive Status: Acute (7) Hydronephrosis: Code(s): N13.30 - Unspecified hydronephrosis Status: Acute (8) Urinary retention: Code(s): R33.9 - Retention of urine, unspecified Status: Chronic Plan 63M w/ PMH neurocognitive disorder at baseline with noncompliance, stasis dermatitis, depression and anxiety, gout, previous alcohol abuse, previous suicide attempt with Tylenol 02/2023, CKD stage 3, morbid obesity, BPH with urinary retention, chronic pain syndrome and chronic narcotic dependence, HLD, HTN, YOSEPH on CPAP. Admitted on 04/03/23 for acute renal failure, UTI, and hydronephrosis all likely due to urinary retention. Mr. North has an underlying neurocognitive disorder and usually lives at home alone. He had a previous recent suicide attempt and after discharge from [facility] he return to another hospital and ended up at acute rehab. He was then sent home and had a Gutierrez in. He was supposed to have a cystoscopy with Urology on the . His mother Zita who provides better history reports his Gutierrez was not draining for a few days. He then ripped out his Gutierrez. 04/06/2023 He presents with acute renal failure and hydronephrosis due to urinary retention and not having the Gutierrez in. He was heavily counseled and now is amenable to having the Gutierrez catheter in. Urology has been consulted and they suggest leaving it in until his cystoscopy on the . For a concurrent UTI he is being treated with ceftriaxone. Nephrology has been consulted. His metabolic acidosis and acute renal failure appeared to be improving. He remains on 100 cc of normal saline and that can continue-this would combat a postobstructive diuresis as well. Would consider discontinuing this tomorrow although. He is also on sodium bicarbonate tabs-adjust that as indicated. Continue Flomax , continue gutierrez as per urology team Troponins have been flat. He denies chest pain. Hypomagnesia recheck mg levels continue iv fluids and iv abx watch full urine culture report Urology rounding for urinary retention Nephrology rounding for Acute on chronic kidney failure and UTI 04/07/2023 DC sodium bicarbonate DC rocephin continue IV fluids await placement creat stable UC is negative 04/08/2023 Pt is medically better DC with gutierrez in situ awaiting placement for weakness and morbid obesity Subjective Date/time seen: 04/08/23 13:12 Interval history: 63 year old male here for UTI, MA and BOAZ PMH of depression with recent suicide attempt with Tylenol, chronic kidney disease stage 3, obesity, BPH with history of urinary retention and chronic pain with chronic narcotic dependence who presented to the ER from home via EMS due to weakness. Pt has catheter in situ treated for UTI and m
[2023-04-08] MEDS: PREGABALIN (*CRX) 75 MG CAPSULE 150 MG PO ×2 (13:46→17:30)
--- NOTE | 2023-04-08 14:29 | PM.DS ---
DS: Admitting Diagnosis Discharge Date 04/08/2023 Admitting Diagnosis Weakness DS: Discharge Diagnosis Discharge Diagnosis (1) Metabolic acidosis: Code(s): E87.20 - Acidosis, unspecified Status: Acute Assessment and Plan: 63 year old male here for UTI, MA and BOAZ PMH of depression with recent suicide attempt with Tylenol, chronic kidney disease stage 3, obesity, BPH with history of urinary retention and chronic pain with chronic narcotic dependence who presented to the ER from home via EMS due to weakness. Pt has catheter in situ treated for UTI and metabolic acidosis Nephrology and urology on board Pt BC are negative UC are negative Pt has been treated with iv fluids, sodium bicarbonate and iv rocephin Creat is better medically doing better awaiting placement Pt had recent admission with Tylenol OD pt denies any SI and HI today ok to DC today (2) Sepsis: Code(s): A41.9 - Sepsis, unspecified organism Status: Acute (3) Chronic kidney disease, stage 3: Code(s): N18.30 - Chronic kidney disease, stage 3 unspecified Status: Chronic (4) Urinary tract infection: Qualifiers: Hematuria presence: with hematuria Urinary tract infection type: site unspecified Qualified Code(s): N39.0 - Urinary tract infection, site not specified; R31.9 - Hematuria, unspecified Code(s): N39.0 - Urinary tract infection, site not specified Status: Acute (5) Acute on chronic kidney failure: Qualifiers: Acute renal failure type: unspecified Chronic kidney disease stage: stage 3 (moderate) Chronic kidney disease stage 3 subtype: stage 3b (GFR 30-44) Qualified Code(s): N17.9 - Acute kidney failure, unspecified; N18.32 - Chronic kidney disease, stage 3b Code(s): N17.9 - Acute kidney failure, unspecified; N18.9 - Chronic kidney disease, unspecified Status: Acute (6) Adult failure to thrive: Code(s): R62.7 - Adult failure to thrive Status: Acute (7) Hydronephrosis: Code(s): N13.30 - Unspecified hydronephrosis Status: Acute (8) Urinary retention: Code(s): R33.9 - Retention of urine, unspecified Status: Chronic Plan DS: Summary Hospital Course Hospital Course: 63M w/ PMH neurocognitive disorder at baseline with noncompliance, stasis dermatitis, depression and anxiety, gout, previous alcohol abuse, previous suicide attempt with Tylenol 02/2023, CKD stage 3, morbid obesity, BPH with urinary retention, chronic pain syndrome and chronic narcotic dependence, HLD, HTN, YOSEPH on CPAP. Admitted on 04/03/23 for acute renal failure, UTI, and hydronephrosis all likely due to urinary retention. Mr. North has an underlying neurocognitive disorder and usually lives at home alone. He had a previous recent suicide attempt and after discharge from [facility] he return to another hospital and ended up at acute rehab. He was then sent home and had a Gutierrez in. He was supposed to have a cystoscopy with Urology on the . His mother Zita who provides better history reports his Gutierrez was not draining for a few days. He then ripped out his Gutierrez. 04/06/2023 He presents with acute renal failure and hydronephrosis due to urinary retention and not having the Gutierrez in. He was heavily counseled and now is amenable to having the Gutierrez catheter in. Urology has been consulted and they suggest leaving it in until his cystoscopy on the . For a concurrent UTI he is being treated with ceftriaxone. Nephrology has been consulted. His metabolic acidosis and acute renal failure appeared to be improving. He remains on 100 cc of normal saline and that can continue-this would combat a postobstructive diuresis as well. Would consider discontinuing this tomorrow although. He is also on sodium bicarbonate tabs-adjust that as indicated. Continue Flomax , continue gutierrez as per urology team Troponins have been flat. He denies chest pain. Hypomagnesia
== END 2023-04-08 19:45 | DRG 872 ==
LOC: ANHED 17:31 → ANHIMU 18:59
PROVIDERS: Internal Medicine; Internal Medicine Nephrology; Admitting Provider General Practice; Emergency Provider Emergency Medicine; PCP Family Medicine; Visit Provider Family Medicine
DX: A41.9 Sepsis, unspecified organism (principal); N39.0 Urinary tract infection, site not specified; N17.9 Acute kidney failure, unspecified; N13.30 Unspecified hydronephrosis; E87.1 Hypo-osmolality and hyponatremia; K81.0 Acute cholecystitis; E87.21 Acute metabolic acidosis; Z68.38 Body mass index [BMI] 38.0-38.9, adult; N31.2 Flaccid neuropathic bladder, not elsewhere classified; N40.1 Benign prostatic hyperplasia with lower urinary tract symptoms; R33.8 Other retention of urine; R31.9 Hematuria, unspecified; N18.32 Chronic kidney disease, stage 3b; R62.7 Adult failure to thrive; I87.2 Venous insufficiency (chronic) (peripheral); F41.8 Other specified anxiety disorders; E66.01 Morbid (severe) obesity due to excess calories; G47.33 Obstructive sleep apnea (adult) (pediatric); R41.9 Unspecified symptoms and signs involving cognitive functions and awareness; E83.42 Hypomagnesemia; G89.4 Chronic pain syndrome; H54.8 Legal blindness, as defined in USA; G62.9 Polyneuropathy, unspecified; Z99.3 Dependence on wheelchair; Z87.891 Personal history of nicotine dependence; Z98.1 Arthrodesis status; Z87.820 Personal history of traumatic brain injury
CPT/HCPCS: 36415; 36600; 71045; 74176; 80048; 80053; 80076; 80307; 81001; 81050; 82550; 82570; 82805; 83605; 83735; 84100; 84145; 84156; 84300; 84484; 84540; 85025; 85610; 85730; 85999; 86140; 87040; 87086; 93005; 96361; 96365; 97161; 97166; 97530; 97535; 99285; A9270; J0696; J1644; J2310; J3475; J7030; J7070

== ENCOUNTER 2023-04-14 14:58 | Inpatient (IN) | payer MEDICARE, BC, SELFPAY ==
[2023-04-14] VITALS (32 sets, daily range): BP systolic 86–159; BP diastolic 54–133; PULSE 86–117; RESP 15–28; TEMP 36.7–36.9; O2SAT 77–98; BMI 37.0
--- NOTE | ~2023-04-14 | XR_ITS ---
EXAMINATION: XR chest 1V portable DATE: 04/15/2023 01:10 INDICATION: Coarse breath sounds. Increased oxygen requirement. TECHNIQUE: A single frontal view of the chest was obtained. COMPARISON: Chest single view 04/03/2023, CT abdomen and pelvis 04/03/2023 FINDINGS: There is no pneumonia, pleural effusion, or pneumothorax. The heart size is normal. There a re changes of a posterior fusion procedure in cervical spine. IMPRESSION: 1. No acute cardiopulmonary disease. Reviewed, dictated and finalized at location E. BREAKER
--- NOTE | ~2023-04-14 | XR_ITS ---
XR chest 1V portable DATE: 04/17/2023 05:49 INDICATION: Shortness of breath TECHNIQUE: Portable AP chest on 04/17/2023 at 0537 hours COMPARISON: 04/16/2023 portable AP chest at 1009 hours FINDINGS: This is a limited rotated single portable AP view. Cardiomegaly is suggested. Mild infiltrate or atelectasis is suggested in the lower lung zones. Small pleural effusions are sugg ested. There is pulmonary vascular redistribution which may indicate mild pulmonary venous hypertensi on. Status post posterior cervical spine surgical fusion. IMPRESSION: Mild infiltrate or atelectasis in the lower lung zones. Mild congestive changes are sugge sted Reviewed, dictated and finalized at location A. ESS PARTY SALES REPRESENTATIVE IMPRESSION: Mild infiltrate or atelectasis in the lower lung zones. Mild conges tive changes are suggested
--- NOTE | ~2023-04-14 | CT_ITS ---
EXAMINATION: CT pelvis w con DATE: 04/14/2023 18:47 INDICATION: Coccyx wound. TECHNIQUE: Computed tomography (CT) of the pelvis was performed with 100 mL Omnipaque 350 intravenous contrast. Automated exposure control and iterative reconstruction technique were employed. The dose- length product was 1487.87 mGy-cm. COMPARISON: CT abdomen and pelvis 04/03/23 03/10/2023 FINDINGS: There are no dilated loops of bowel. The gallbladder is normal in size. Gallbladder wall th ickening is noted, likely interstitial edema. There is cortical thinning of the kidneys. There is mil d bilateral hydronephrosis. There is diffuse bladder wall thickening. There is a Durant catheter in ex pected position. In the buttocks, there is subcutaneous fat stranding and soft tissue gas. There is m oderate right hip osteoarthritis and severe left hip osteoarthritis. There are changes of posterior f usion procedure from L3 to L5 with pedicle screws. IMPRESSION: 1. Subcutaneous fat stranding and soft tissue gas in the buttocks, consistent with infection. No drai nable abscess. 2. No evidence of osteomyelitis. 3. Diffuse bladder wall thickening again seen, which may be secondary to chronic outlet obstruction, cystitis, or neurogenic bladder. 4. Mild bilateral hydronephrosis with improvement from 04/03/23. Reviewed, dictated and finalized at location E. ATOR RECEPTIONIST IMPRESSION: 1. Subcutaneous fat stranding and soft tissue gas in the buttocks, consistent w ith infection. No drainable abscess. 2. No evidence of osteomyelitis. 3. Diffuse bladder wall thickening again seen, which may be secondary to chroni c outlet obstruction, cystitis, or neurogenic bladder. 4. Mild bilateral hydronephrosis with improvement from 04/03/23.
--- NOTE | ~2023-04-14 | XR_ITS ---
EXAMINATION: XR chest 1V portable DATE: 04/16/2023 10:40 INDICATION: Shortness of breath TECHNIQUE: frontal view of the chest was obtained. COMPARISON: Chest radiograph dated 04/15/2023 FINDINGS: Persistent mild left basilar opacities with appearance most consistent with atelectasis on prior CT. Very small left pleural effusion. No pneumothorax or right-sided pleural effusion. Borderline heart s ize accounting for AP technique. Mild to moderate lower thoracic spondylosis. IMPRESSION: 1. Persistent mild left basilar opacities consistent with very small left pleural effusion and associ ated atelectasis versus less likely pneumonia. Reviewed, dictated and finalized at location A. EXPEDITOR IMPRESSION: 1. Persistent mild left basilar opacities consistent with very small left pleur al effusion and associated atelectasis versus less likely pneumonia.
--- NOTE | ~2023-04-14 | CT_ITS ---
EXAMINATION: CTA chest PE protocol DATE: 04/15/2023 18:48 INDICATION: Tachycardia and hypoxemia TECHNIQUE: Computed tomography angiography (CTA) of the chest was performed with 100 mL Omnipaque-350 intravenous contrast timed to evaluate the pulmonary arteries. Coronal maximum intensity projection 3D-reconstructions were created by the technologist. The dose-length product (DLP) was 884.11 mGy-cm. Automated exposure control and iterative reconstruction technique were employed. COMPARISON: None. FINDINGS: The pulmonary arteries are well-opacified. No pulmonary embolism is identified. There are s mall pleural effusions, left greater than right. There is mild dependent atelectasis. No pathological ly enlarged thoracic lymph nodes are identified. The heart size is normal. There is mild bilateral gy necomastia. Calcified coronary artery atherosclerosis is noted. There is moderate thoracic spondylosi s. IMPRESSION: 1. No pulmonary embolus identified. 2. Small pleural effusions. Reviewed, dictated and finalized at location F. EEPER
--- NOTE | ~2023-04-14 | XR_ITS ---
Portable chest x-ray Comparison: 04/18/2023 Clinical History: Aspiration Findings: Right-sided PICC line is in satisfactory position. Lungs are clear, without focal consolid ation or pleural effusion. Cardiomediastinal silhouette is stable. Bones and soft tissues are unrema rkable. Impression: Clear lungs. Right-sided PICC line in place. Reviewed, dictated and finalized at location M. OSOFT EXCHANGE ARCHITECT Impression: Clear lungs. Right-sided PICC line in place.
--- NOTE | ~2023-04-14 | XR_ITS ---
EXAMINATION: XR chest PICC line Exam Date/Time: 04/18/2023 14:21 RING STRIKER HISTORY: Picc placement Comparison: 04/17/2023. RESULT: Lines, tubes, and devices: New right upper extremity PICC, terminating in the upper/mid SVC. Partial ly visualized cervical fusion hardware. Lungs and pleura: Stable streaky bibasilar opacities. Cardiomediastinal silhouette: Stable. Other: No acute osseous or upper abdominal finding. IMPRESSION: Right upper extremity PICC, terminating in the upper/mid SVC. Reviewed, dictated and finalized at location K. STRIKER
--- NOTE | 2023-04-14 15:04 | ED.WOUNDLAC ---
HPI - Wound/Laceration General Chief Complaint: Wound/Laceration <Germán Kramer APRN - Last Filed: 04/15/23 08:13> Stated Complaint: wound care <Germán Kramer APRN - Last Filed: 04/15/23 08:13> Time Seen by Provider: 04/14/23 15:04 <Germán Kramer APRN - Last Filed: 04/15/23 08:13> Source: patient <Germán Kramer APRN - Last Filed: 04/15/23 08:13> Mode of arrival: ambulatory <Germán Kramer APRN - Last Filed: 04/15/23 08:13> Limitations: no limitations <Germán Kramer APRN - Last Filed: 04/15/23 08:13> History of Present Illness HPI narrative: Nura is a 63-year-old male patient presenting to the ER today from the [facility] via EMS for complaints of wound to buttocks/coccyx. Patient reports that he has had this wound for an unknown time. States he went to a healthcare facility initially and they did not help him turn and his bottom started to hurt, he signed out of that facility and went home and states that he sat in a chair at home for 1 week straight. Was recently seen in the [place] ER and was admitted for acute kidney injury/sepsis. Patient was admitted on April 03 and discharged on April 08. Denies any fever or chills. Spo2 initially 70-80s. O2 was applied. Denies any shortness of breath but does have a cough x3 days. Blood pressure is 108/68. Sepsis protocol was initiated. Patient reports that there was supposed to be a physician sending over orders colostomy so he can keep feces off/out of the wound. Durant catheter in place. <Germán Kramer APRN - Last Filed: 04/15/23 08:13> Related Data Home Medications: Home Medications Medication Instructions Recorded Confirmed paroxetine HCl 30 mg tablet 30 mg PO DAILY 09/15/22 04/14/23 simvastatin 20 mg tablet 20 mg PO DAILY 09/15/22 04/14/23 trazodone 150 mg tablet 150 mg PO HS 09/15/22 04/14/23 amlodipine 5 mg tablet (Norvasc) 5 mg PO DAILY 04/04/23 04/14/23 alprazolam 0.5 mg tablet 0.5 mg PO QID 04/14/23 04/14/23 ascorbic acid (vitamin C) 500 mg 500 mg PO DAILY 04/14/23 04/14/23 tablet collagenase clostridium histo. 250 1 applic topical DAILY 04/14/23 04/14/23 unit/gram topical ointment (Santyl) ferrous sulfate 325 mg (65 mg 325 mg PO DAILY 04/14/23 04/14/23 iron) tablet multivitamin with minerals 1 tablet PO DAILY 04/14/23 04/14/23 (Multiple Vitamin-Minerals tablet) oxycodone 10 mg tablet 10 mg PO Q6H 04/14/23 04/14/23 zinc sulfate 50 mg zinc (220 mg) 50 mg PO DAILY 04/14/23 04/14/23 tablet <Germán Kramer APRN - Last Filed: 04/15/23 08:13> Allergies/Adverse Reactions: Allergies Allergy/AdvReac Type Severity Reaction Status Date / Time allopurinol Allergy Unknown Rash Verified 04/14/23 22:10 carbamazepine Allergy Unknown Rash Verified 04/14/23 22:10 cyclobenzaprine Allergy Unknown Rash Verified 04/14/23 22:10 diclofenac Allergy Unknown Rash Verified 04/14/23 22:10 adhesive tape Allergy Rash Verified 04/14/23 22:10 <Germán Kramer APRN - Last Filed: 04/15/23 08:13> Review of Systems Review of Systems: Pertinent positives per HPI. Patient denies any fever, chills, rash, headache, visual changes, dizziness, sore throat, shortness of breath, chest pain, palpitations, nausea, vomiting, diarrhea, constipation, abdominal pain, or any urinary issues. <Germán Kramer APRN - Last Filed: 04/15/23 08:13> [facility] Past Medical History Medical History: Medical History Alcohol abuse Chronic kidney disease Chronic pain syndrome Depression with anxiety Gout History of GI bleed History of meningitis Hydronephrosis Hyperlipidemia Hypertension Legally blind Left eye YOSEPH on CPAP Peripheral neuropathy Urinary retention <Germán Kramer APRN - Last Filed: 04/15/23 08:13> Surgical History Surgical History: Surgical History (Reviewed 04/15/23 @ 09:38 by Marjorie
--- NOTE | 2023-04-14 15:21 | ECG_ITS ---
Measurements Intervals [place] Rate: 103 P: -20 TN: 124 QRS: 81 QRSD: 105 T: 63 QT: 362 QTc: 475 Interpretive Statements SINUS TACHYCARDIA BASELINE ARTIFACT- I, II, AVR, AVL, V1-V3 BORDERLINE ECG COMPARED TO ECG 04/05/2023 17:40:51 SINUS TACHYCARDIA NOW PRESENT Electronically Signed On 04-14-2023 15:50:52 ADDING MACHINE OPERATOR by Navi Liao D.O.
[2023-04-14] MEDS: SODIUM CHLORIDE 0.9% IV 1,000 ML 999 ML IV CONT ×4 (16:00→18:53)
[2023-04-14 16:07] LABS: Basophils Percent Auto 0.2 % (0.2-1.2); Eosinophils Absolute Auto 0.2 K/mm3 (0-0.3); Eosinophils Percent Auto 1.2 % (0-4.4); Hematocrit 32.4 % (42.0-52.0); Hemoglobin 9.9 g/dL (14.0-18.0); Immature Granulocyte Percent A 0.8 % (0-0.5); Lymphocytes Absolute Auto 0.82 K/mm3 (0.9-3.2); Lymphocytes Percent Auto 6.3 % (18.3-44.2); Mean Corpuscular HGB Conc 30.6 g/dl (32-36); Mean Corpuscular Hemoglobin 27.4 pg (26-34); Mean Corpuscular Volume 89.8 fl (80-100); Mean Platelet Volume 9.2 fl (7.4-10.4); Monocytes Absolute Auto 0.9 K/mm3 (0.1-0.6); Monocytes Percent Auto 7.1 % (2.6-8.5); Neutrophils Percent Auto 84.4 % (45.5-73.1); Platelet Count Result 377 k/mm3 (150-375); Red Blood Count 3.61 M/mm3 (4.6-6.20); Red Cell Distribution Width 14.1 % (11.5-14.5)
[2023-04-14 16:17] LABS: Lactic Acid Reflex 1.4 mmol/L (0.7-2.0)
[2023-04-14 16:18] LABS: INR 1.3; Prothrombin Time 16.3 Seconds (11.1-14.7)
[2023-04-14 16:19] LABS: Partial Thromboplastin Time 41.9 SECONDS (22.3-36.8)
[2023-04-14 16:24] LABS: Alanine Aminotransferase 29 U/L (6-50); Albumin Level 3.1 g/dL (3.5-5.1); Alkaline Phosphatase 252 U/L (38-126); Anion Gap 7 mmol/L (8-16); Aspartate Amino Transferase 53 U/L (17-59); Bilirubin,Total 0.7 mg/dL (0.2-1.3); Blood Urea Nitrogen 23 mg/dL (9-20); Calcium 7.4 mg/dL (8.4-10.2); Carbon Dioxide 30 mmol/L (22-30); Chloride 99 mmol/L (98-107); Estimated CRCL calculation 60 ml/min; Estimated Glomerular Filt Rate 51; Glucose 114 mg/dL (65-110); Potassium 3.7 mmol/L (3.4-5.0); Sodium 136 mmol/L (137-145)
[2023-04-14 16:35] LABS: Appearance Urine Clear (Clear); Bacteria Urine None Seen /hpf; Bilirubin Urine Negative (Negative); Blood Urine 1+ (Negative); Color Urine Yellow (Yellow); Glucose Urine UA Negative (Negative); Hyaline Casts Urine Present /lpf; Ketones Urine Negative (Negative); Leukocyte Esterase Ur 1+ LEU/UL (Negative); Nitrate Urine Negative (Negative); Protein Urine 2+ mg/dL (Negative); Specific Grav Ur 1.015 (1.001-1.035); Squamous Epithelial Cell Urine Occasional /hpf (Few); pH Urine 5.5 (5.0-9.0)
[2023-04-14 16:36] LABS: Add Urine Microscopic? YES
[2023-04-14 16:41] LABS: CRP 26.5 mg/dL (<1.0)
[2023-04-14] MEDS: PIPERACILLN/TAZ 3.375GM/NS50ML 3.375 GM/50 ML BAG IVPB (18:56)
--- NOTE | 2023-04-14 19:25 | PC.NURSE ---
Report from GABRIEL Barrios. Pt resting quietly per cart, O2 5L, IV ABX infusing. Pt requesting his home anxiety medication, but unsure dose.
[2023-04-14 19:31] LABS: Influenza A QL RT-PCR Negative (Negative); Influenza B QL RT-PCR Negative (Negative); RSV RNA, RT-PCR Positive (Negative); SARS-CoV-2 RNA PCR Negative (Negative)
[2023-04-14] MEDS: MORPHINE SULFATE (*CRX) 2 MG/ML INJ IV PUSH (19:39)
--- NOTE | 2023-04-14 20:52 | PM.IMHP ---
H&P: HPI History of Present Illness Date/Time: 04/14/23 20:52 Chief Complaint: Wound Narrative: This is a 63-year-old male with past medical history significant for alcohol abuse, chronic kidney disease, chronic pain syndrome, with anxiety, gout sleep apnea on CPAP, peripheral neuropathy, urinary retention, chronic Durant catheter. Patient was brought to the emergency room due to infected wound. Patient is unable to provide much history he is lethargic and obtunded at the time of my visit. Preliminary workup was significant for subcutaneous soft tissue gas in the buttock area. Patient placed on broad-spectrum antibiotic, CT of pelvis was reported as: EXAMINATION: CT pelvis w con DATE: 04/14/2023 18:47 INDICATION: Coccyx wound. TECHNIQUE: Computed tomography (CT) of the pelvis was performed with 100 mL Omnipaque 350 intravenous contrast. Automated exposure control and iterative reconstruction technique were employed. The dose-length product was 1487.87 mGy-cm. COMPARISON: CT abdomen and pelvis 04/03/23 03/10/2023 FINDINGS: There are no dilated loops of bowel. The gallbladder is normal in size. Gallbladder wall thickening is noted, likely interstitial edema. There is cortical thinning of the kidneys. There is mild bilateral hydronephrosis. There is diffuse bladder wall thickening. There is a Durant catheter in expected position. In the buttocks, there is subcutaneous fat stranding and soft tissue gas. There is moderate right hip osteoarthritis and severe left hip osteoarthritis. There are changes of posterior fusion procedure from L3 to L5 with pedicle screws. IMPRESSION: 1. Subcutaneous fat stranding and soft tissue gas in the buttocks, consistent with infection. No drainable abscess. 2. No evidence of osteomyelitis. 3. Diffuse bladder wall thickening again seen, which may be secondary to chronic outlet obstruction, cystitis, or neurogenic bladder. 4. Mild bilateral hydronephrosis with improvement from 04/03/23. Patient is been admitted for further evaluation management and treatment. Review of Systems Review of Systems: ROS unobtainable: Yes unobtainable due to mental status (Lethargy, obtundation) [facility] Past Medical History Medical History (Updated 04/14/23 @ 19:17 by Germán Kramer APRN) Alcohol abuse Chronic kidney disease Chronic pain syndrome Depression with anxiety Gout History of GI bleed History of meningitis Hydronephrosis Hyperlipidemia Hypertension Legally blind Left eye YOSEPH on CPAP Peripheral neuropathy Urinary retention Surgical History Surgical History (Updated 04/04/23 @ 04:03 by Bethany Fernandez DO) H/O cataract extraction H/O hand surgery H/O inguinal hernia repair H/O Spinal surgery L3 through L5 laminectomy with fusion History of tonsillectomy Family History Family History Mother Patient's mother is in good health Father Patient's father is Congestive heart failure Acute myocardial infarction Hypertension Grandparent Cerebrovascular accident Cancer Unknown No problems noted. Sibling Hypertension Sibling Hypertension Social History Social History (Updated 04/04/23 @ 04:05 by Bethany Fernandez DO) Social History: The patient lives home alone. He is a former smoker. The patient used to be heavy smoker smoking up to 2-3 packs of cigarettes for several years. The patient was known to drink 8-10 beers a day, states he drinks less than that now and not every day. He is retired and disabled in 1979. His mother Zita leonard is his contact printer dry film. Code status: DNR/DNI Smoking packs per day: 3 Smoking cigarettes per day: 60.0 Years smoked: 15 Smoking pack-years: 45.00 Smoking status: Former smoker Tobacco type: cigarettes Smokeless tobacco user: chewing tobacco Second hand tobacco smoke exposure: No Smoking end date: 03/29/04 Additional smoking assessment co
[2023-04-14] MEDS: VANCOMYCIN 1,500 MG/NS 500 ML 1,500 MG/500 ML BAG 250 MG IVPB (21:17)
[2023-04-15] VITALS (19 sets, daily range): BP systolic 92–122; BP diastolic 48–68; PULSE 87–118; RESP 14–24; TEMP 36.4–37.1; O2SAT 90–99; BMI 37.0
--- NOTE | 2023-04-15 00:16 | ADMGEN ---
This patient, Nura North, was admitted to Medical Room 247-. Patient/family oriented to hospital policies and general routines including ID bracelet, bed and alarms, visiting hours, pain management, procedures, bathroom and other care routines, personal items, smoking policy, room service/diet, and visiting hours. Information on how to activate the Rapid Response Team has been discussed. Patient/Family are encouraged to report perceived risks to care and to ask questions if they do not understand what they are told or what they should do.
[2023-04-15] MEDS: oxyCODONE HCL (*CRX) 5 MG TAB IR 10 MG PO ×3 (00:41→13:11)
[2023-04-15] MEDS: PIPERACILLN/TAZ 3.375GM/NS50ML 3.375 GM/50 ML BAG IVPB ×4 (00:41→18:56)
[2023-04-15 06:16] LABS: Estimated CRCL calculation 69 ml/min; Estimated Glomerular Filt Rate > 60
--- NOTE | 2023-04-15 08:12 | PCWOUND ---
WOCN NOTE Received RN notice of pressure wound. patient being followed by surgeon.
--- NOTE | 2023-04-15 08:38 | PM.IMPN ---
Progress Note: A&P Assessment and Plan (1) Wound infection: Code(s): T14.8XXA - Other injury of unspecified body region, initial encounter; L08.9 - Local infection of the skin and subcutaneous tissue, unspecified Status: Acute (2) Acute UTI: Code(s): N39.0 - Urinary tract infection, site not specified Status: Acute (3) Sepsis: Code(s): A41.9 - Sepsis, unspecified organism Status: Acute Plan This is a 63-year-old male with past medical history significant for alcohol abuse, chronic kidney disease, chronic pain syndrome, with anxiety, gout sleep apnea on CPAP, peripheral neuropathy, urinary retention, chronic Durant catheter.? Patient was brought to the emergency room due to infected wound.? Patient is unable to provide much history he is lethargic and obtunded at the time of my visit.? Preliminary workup was significant for subcutaneous soft tissue gas in the buttock area Assessment and plan (1) Wound infection: ?Code(s): Sacral decubital ulcer Admit to regular medical floor Patient started on Zosyn and vancomycin General surgery consult for debridement Await cultures (2) Acute UTI: ?Code(s): N39.0 - Urinary tract infection, site not specified ?Status:?Acute ?Assessment and Plan: On vancomycin and Zosyn Await cultures (3) Chronic venous stasis dermatitis of both lower extremities: ?Code(s): I87.2 - Venous insufficiency (chronic) (peripheral) ?Status:?Acute (4) Adult failure to thrive: ?Code(s): R62.7 - Adult failure to thrive ?Status:?Acute ?Assessment and Plan: Likely secondary to chronic illness (5) Wound of buttock: ?Qualifiers: ?Encounter type:?initial encounter??Laterality:?unspecified laterality? Qualified Code(s):?S31.809A - Unspecified open wound of unspecified buttock, initial encounter ?Code(s): S31.809A - Unspecified open wound of unspecified buttock, initial encounter ?Status:?Acute ?Assessment and Plan: Local care (6) Chronic pain syndrome: ?Code(s): G89.4 - Chronic pain syndrome ?Status:?Chronic ?Assessment and Plan: Resume home meds (7) YOSEPH (obstructive sleep apnea): ?Code(s): G47.33 - Obstructive sleep apnea (adult) (pediatric) ?Status:?Acute ?Assessment and Plan: Currently on oxygen by nasal cannula (8) Generalized muscle weakness: ?Code(s): M62.81 - Muscle weakness (generalized) ?Status:?Acute ?Assessment and Plan: Likely deconditioning secondary to chronic illness (9) Chronic kidney disease, stage 3: ?Code(s): N18.30 - Chronic kidney disease, stage 3 unspecified ?Status:?Chronic ?Assessment and Plan: Continue to monitor BUN and creatinine Acute respiratory Unclear etiologies, patient has a, tachypnea, patient is on 5 L oxygen ABG showed hypoxemic respiratory failure patient has tachycardia tachypnea Order CT of chest need to rule out PE Subjective Date/time seen: 04/15/23 08:38 Interval history: I saw examined patient today, patient still has a productive cough, shortness of breath is improving, patient is on 5 L oxygen. Exam Narrative: GENERAL: Pleasant, in no acute distress. Well-nourished. - EYES: EOMI. Anicteric. - HENT: Moist mucous membranes. - LUNGS: Clear to auscultation bilaterally, no wheezing, rhonchi, or rales. - CARDIOVASCULAR: Regular rate and rhythm. No murmur. No JVD. - ABDOMEN: Soft, non-tender and non-distended. No palpable masses. - EXTREMITIES: No edema. Peripheral pulses 2+. Non-tender. - NEUROLOGIC: No focal neurological deficits. CN II-XII grossly intact. - PSYCHIATRIC: Awake, Alert and oriented x 3. Appropriate mood and affect. - SKIN: Sacral decubitus ulcer unstageable. - LYMPH: No cervical lymphadenopathy. Objective Data Vital Signs Vital Signs: Vital Signs - 24 hr 04/14/23 15:03 04/14/23 15:04 04/14/23 16:28 Temperature 98.5 F Pulse Rate 111 H 99 Respiratory
[2023-04-15 09:01] LABS: Basophils Percent Auto 0.2 % (0.2-1.2); Eosinophils Absolute Auto 0.4 K/mm3 (0-0.3); Eosinophils Percent Auto 3.2 % (0-4.4); Hematocrit 30.8 % (42.0-52.0); Hemoglobin 9.4 g/dL (14.0-18.0); Immature Granulocyte Absolute 0.04 K/mm3 (0.00-0.031); Immature Granulocyte Percent A 0.4 % (0-0.5); Lymphocytes Absolute Auto 0.99 K/mm3 (0.9-3.2); Lymphocytes Percent Auto 9.1 % (18.3-44.2); Mean Corpuscular HGB Conc 30.5 g/dl (32-36); Mean Corpuscular Hemoglobin 27.6 pg (26-34); Mean Corpuscular Volume 90.3 fl (80-100); Mean Platelet Volume 9.4 fl (7.4-10.4); Monocytes Absolute Auto 0.8 K/mm3 (0.1-0.6); Neutrophils Absolute Auto 8.8 K/mm3 (1.3-6.7); Neutrophils Percent Auto 80.1 % (45.5-73.1); Platelet Count Result 362 k/mm3 (150-375); Red Blood Count 3.41 M/mm3 (4.6-6.20); Red Cell Distribution Width 14.4 % (11.5-14.5); White Blood Count 10.9 K/mm3 (4.5-10.0)
[2023-04-15 09:17] LABS: Anion Gap 9 mmol/L (8-16); Blood Urea Nitrogen 18 mg/dL (9-20); Carbon Dioxide 25 mmol/L (22-30); Chloride 106 mmol/L (98-107); Estimated CRCL calculation 69 ml/min; Estimated Glomerular Filt Rate > 60; Glucose 93 mg/dL (65-110); Potassium 3.6 mmol/L (3.4-5.0); Sodium 140 mmol/L (137-145)
--- NOTE | 2023-04-15 09:26 | PM.CNGS ---
Assessment and Plan Assessment and plan (1) Decubitus ulcer of sacral region, unstageable: Code(s): L89.150 - Pressure ulcer of sacral region, unstageable Status: Acute Assessment and Plan: Patient has a large necrotic unstageable sacral decubitus ulcer that is foul-smelling with purulent drainage. Pelvis CT does not show any evidence of osteomyelitis. Discussed the case with Dr. Brown. We would recommend excisional debridement of the sacral decubitus ulcer in the OR. Description of the procedure, risks, benefits, alternatives, and expected recovery were discussed with the patient in detail. This wound extends all the way to the anal verge and is clearly being contaminated with stool regularly as he is incontinent. Discussed with the patient that he holds high risks of recurrent or deeper infections, sepsis, and poor healing if he continues to have this wound contaminated. It is likely that he will eventually need a diverting colostomy for stool diversion to give this wound the best possible chance of healing and avoiding future complications and infections. (2) RSV (respiratory syncytial virus infection): Code(s): B33.8 - Other specified viral diseases Status: Acute Assessment and Plan: RSV positive in ER and on 5 liters of oxygen. Denies home O2. Continue medical management per primary service. (3) Acute kidney injury superimposed on chronic kidney disease: Code(s): N17.9 - Acute kidney failure, unspecified; N18.9 - Chronic kidney disease, unspecified Status: Acute (4) Chronic pain syndrome: Code(s): G89.4 - Chronic pain syndrome Status: Chronic Assessment and Plan: Takes oxycodone for chronic pain (5) YOSEPH (obstructive sleep apnea): Code(s): G47.33 - Obstructive sleep apnea (adult) (pediatric) Status: Acute (6) Generalized muscle weakness: Code(s): M62.81 - Muscle weakness (generalized) Status: Acute Assessment and Plan: Previously was ambulatory with a cane/walker but over the past month he has become more weak and deconditioned. Now basically nonambulatory. May eventually need PT/OT ordered post-op to help with his deconditioned state if he is compliant. (7) Urinary retention with incomplete bladder emptying: Code(s): R33.9 - Retention of urine, unspecified Status: Acute Assessment and Plan: Has been seen by Urology both previous hospitalizations for this issues and they feel he may have atonic neurogenic bladder. He was supposed to be rescheduled for outpatient f/u and cystoscopy. Currently with a chronic indwelling urinary catheter. Plan I have discussed the patient's case and plan of care with Dr. Brown. Thank you for allowing us to see the patient in consultation and we will continue to follow along with you. History of Present Illness Consult details Consult date: 04/15/23 Reason for consult: other Requesting physician: Germán Kramer APRN Narrative: This is a 63-year-old man with a history of traumatic brain injury, sleep apnea, hypertension, chronic kidney disease, multiple other medical problems, who has been hospitalized multiple times since February. In February, he was admitted following an intentional overdose and was treated for urinary retention and diarrhea. He was discharged home with his mom helping with 24 hour care given his suicide attempt, but at some point was put into acute rehab. He ended up signing himself out of acute rehab AMA and went back home. From review of his chart, he was reportedly nonambulatory at home and was found by EMS lying in his own stool and urine when returning earlier this month to the hospital for sepsis, UTI, and acute on chronic renal failure. During his last hospitalization, he did have a sacral wound and wound care was consulted. They were applying antifungal barrier cream. He had a large firm black eschar labeled as a deep tissue injury in the sacral area. He was eventually di
[2023-04-15] MEDS: ALPRAZolam (*CRX) 0.5 MG TABLET PO ×2 (10:57→21:26)
[2023-04-15] MEDS: amLODIPine BESYLATE 5 MG TABLET PO (11:01)
[2023-04-15] MEDS: PARoxetine 10 MG TABLET 30 MG PO (11:01)
[2023-04-15] MEDS: TIMOLOL MALEATE 0.5% OP SOLN 5 ML BOTTLE 1 DROP EACH EYE (11:02)
--- NOTE | 2023-04-15 11:09 | WPDHPUPDATE1 ---
History and Physical Update Update Date/Time: 04/15/23 11:09 History and Physical has been reviewed, including an updated exam of the patient. There are NO changes in the patient's condition. Risks, benefits, and alternatives have been discussed and questions answered. Patient agrees to proceed with procedure.
[2023-04-15 11:52] LABS: Alveolar/Arterial O2 Gradient 179.1 mmHg; Fractional Inspired Oxygen 40 %; HCO3 ABG 23.3 mEq/l (22.0-26.0); Oxygen Content ABG 15.4 %vol (16.0-22.0); Oxygen Saturation ABG 92.5 % (95.0-100.0); Oxyhemoglobin 91.7 % THb (90.0-100.0); PCO2 ABG 37.5 mmHg (35.0-45.0); PO2 FiO2 Ratio Arterial Blood 1.58 %; Total Hemoglobin 11.9 g/dL (12.0-18.0); pH ABG 7.411 (7.350-7.450)
[2023-04-15 11:54] LABS: Device HIGH FLOW NASAL CANN; Modified Allen's Test Pass; Site Drawn LEFT RADIAL
--- NOTE | 2023-04-15 12:47 | WPDANESEPPF ---
Anes - Initial Pre Proc Eval Procedure: Operation Date: 04/15/23 15:00 Proposed Procedures p Excisional Debridement Sacral Decubitis Ulcer - Porfirio Brown MD Date/Time: 04/15/23 12:47 Surgeon: Jcarlos Mayfield MD Pre Op Diagnosis: UTI, Wound Infection, Wound to Buttock Patient Data Age: 63 Gender: M Height: 1.75 m Weight: 113.6 kg Last Vital Signs Temp 37.0 C 04/15/23 06:13 Pulse 108 H 04/15/23 11:00 Resp 16 04/15/23 06:13 BP 116/61 04/15/23 11:00 Pulse Ox 93 04/15/23 11:00 O2 Del Method Nasal Cannula 04/14/23 22:39 O2 Flow Rate 5 04/14/23 22:39 Allergies Allergy/AdvReac Type Severity Reaction Status Date / Time allopurinol Allergy Unknown Rash Verified 04/14/23 22:10 carbamazepine Allergy Unknown Rash Verified 04/14/23 22:10 cyclobenzaprine Allergy Unknown Rash Verified 04/14/23 22:10 diclofenac Allergy Unknown Rash Verified 04/14/23 22:10 adhesive tape Allergy Rash Verified 04/14/23 22:10 Home Medications Medication Instructions Recorded Confirmed Type paroxetine HCl 30 mg tablet 30 mg PO DAILY 09/15/22 04/14/23 History simvastatin 20 mg tablet 20 mg PO DAILY 09/15/22 04/14/23 History trazodone 150 mg tablet 150 mg PO HS 09/15/22 04/14/23 History escitalopram oxalate 10 mg tablet 15 mg PO HS #30 tabs 12/29/22 04/14/23 Rx polyethylene glycol 3350 17 gram 17 g PO DAILY #30 ea 12/29/22 04/14/23 Rx oral powder packet (Miralax) pregabalin 75 mg capsule (Lyrica) 150 mg PO TID #30 caps 12/29/22 04/14/23 Rx tamsulosin 0.4 mg capsule 0.4 mg PO QHS #30 caps 12/29/22 04/14/23 Rx timolol maleate 0.5 % eye drops 1 drp EACH EYE QAM #1 mL 12/29/22 04/14/23 Rx amlodipine 5 mg tablet (Norvasc) 5 mg PO DAILY 04/04/23 04/14/23 History finasteride 5 mg tablet (Proscar) 5 mg PO QAM #30 tabs 04/08/23 04/14/23 Rx methocarbamol 750 mg tablet 1,500 mg PO TID PRN Bladder Spasms 04/08/23 04/14/23 Rx #30 tabs alprazolam 0.5 mg tablet 0.5 mg PO QID 04/14/23 04/14/23 History ascorbic acid (vitamin C) 500 mg 500 mg PO DAILY 04/14/23 04/14/23 History tablet collagenase clostridium histo. 250 1 applic topical DAILY 04/14/23 04/14/23 History unit/gram topical ointment (Santyl) ferrous sulfate 325 mg (65 mg 325 mg PO DAILY 04/14/23 04/14/23 History iron) tablet multivitamin with minerals 1 tablet PO DAILY 04/14/23 04/14/23 History (Multiple Vitamin-Minerals tablet) oxycodone 10 mg tablet 10 mg PO Q6H 04/14/23 04/14/23 History zinc sulfate 50 mg zinc (220 mg) 50 mg PO DAILY 04/14/23 04/14/23 History tablet Laboratory Tests 04/14/23 04/14/23 04/15/23 15:56 15:59 05:19 WBC 13.0 H K/mm3 10.9 H K/mm3 (4.5-10.0) (4.5-10.0) RBC 3.61 L M/mm3 3.41 L M/mm3 (4.6-6.20) (4.6-6.20) Hgb 9.9 L g/dL 9.4 L g/dL (14.0-18.0) (14.0-18.0) Hct 32.4 L % 30.8 L % (42.0-52.0) (42.0-52.0) MCV 89.8 fl 90.3 fl (80-100) (80-100) MCH 27.4 pg 27.6 pg (26-34) (26-34) MCHC 30.6 L g/dl 30.5 L g/dl (32-36) (32-36) RDW 14.1 % 14.4 % (11.5-14.5) (11.5-14.5) Plt Count 377 H k/mm3 362 k/mm3 (150-375) (150-375) MPV 9.2 fl 9.4 fl (7.4-10.4) (7.4-10.4) Immature Gran % (Auto) 0.8 H % 0.4 % (0-0.5) (0-0.5) Neut % (Auto) 84.4 H % 80.1 H % (45.5-73.1) (45.5-73.1) Lymph % (Auto) 6.3 L % 9.1 L % (18.3-44.2) (18.3-44.2) [place] % (Auto) 7.1 % 7.0 % (2.6-8.5) (2.6-8.5) Eos % (Auto) 1.2 % 3.2 % (0-4.4) (0-4.4) Baso % (Auto) 0.2 % 0.2 % (0.2-1.2) (0.2-1.2) Lymph # (Auto) 0.82 L K/mm3 0.99 K/mm3 (0.9-3.2) (0.9-3.2) [place] # (Auto) 0.9 H K/mm3 0.8 H K/mm3 (0.1-0.6) (0.1-0.6) Eos # (Auto) 0.2 K/mm3 0.4 H K/mm3 (0-0.3) (0-0.3) Baso # (Auto) 0.0 K/mm3 0.0 K/mm3 (0.0-0.1) (0.0-0.1) Abs Immat Gran (auto) 0.10 H K/mm3 0.04 H K/mm3 (0.00-0.031) (0.00-0.031) Absolute Neuts (auto) 11.0 H K/mm3 8.8
[2023-04-15] MEDS: BUPivacaine HCL 0.5% 10 ML AMP INFILTRATE (14:44)
[2023-04-15] MEDS: LIDO 1%/EPINEPHRINE 1:100,000 50 ML VIAL 10 ML INFILTRATE (14:44)
[2023-04-15] MEDS: VANCOMYCIN 1,500 MG/NS 500 ML 1,500 MG/500 ML BAG 250 MG IVPB (14:46)
[2023-04-15] MEDS: LACTATED RINGERS 1,000 ML 30 ML IV CONT (16:11)
--- NOTE | 2023-04-15 17:07 | SUR.PHASEI ---
1700 - dr. brand called to clarify Med/surg vs IMU order. okay for pt to return to med/surg room 170 - Dr. curran called and verified that pt to return to med/surg room. pt meets anesthesia protocol level
--- NOTE | 2023-04-15 17:08 | W.PM.PROC2 ---
Procedure Note - Detailed Date of Procedure 04/15/23 Pre-op Diagnosis UTI, Wound Infection, Wound to Buttock Post-op Diagnosis Other ( extensive stage IV sacral decubitus wound involving the bilateral inner buttocks, sacral region, and posterior perianal region.) Procedure Performed Sharps scalpel and scissor excisional debridement of skin and subcutaneous tissue from sacral decubitus ulcer wound. Surgeon Porfirio Brown MD Mixing Tumbler Operator KEESHA Croft Anesthesia General Indications Patient is a 63-year-old gentleman who is essentially been bedridden for at least the last 2 weeks. He has had 3 admissions to [facility] over the course of the past 2 months. He has developed a large stage IV sacral decubitus wound and appears to have signs of sepsis due to the wound and presents now for emergent debridement of the nonviable and necrotic tissue from the wound. Findings Patient had very large stage IV sacral decubitus wound involving the presacral area as well as the bilateral inner buttocks and posterior perianal skin. The necrotic tissue extended into the cutaneous tissues and the skin surrounding the posterior 1/2 of the perianal region. Anal sphincters were exposed after debridement of the necrotic skin however they did not appear to be necrotic then cells. There was no exposed coccyx sacrum. After debridement of the necrotic tissue and skin the wound measured 22cm in width by 18cm in length by 5cm at maximal depth. Multiple photographs were taken to document the preoperative and postoperative status of the wound. Description of Procedure After informed consent was obtained patient brought to the operating room was placed under general endotracheal anesthesia on the gurney and then turned to the prone jax-knife position on the operating table. The lower back, sacrum, bilateral buttocks and perianal region was then prepped and draped usual sterile fashion. A time-out was then performed correctly identifying the patient as well as procedure to be performed. He was already on scheduled IV antibiotics. Patient had a large area of necrotic and liquified necrotic tissue in the presacral soft tissues. This extended with necrosis of the skin towards the perianal region. Utilizing combination op sharp scissor and sharp scalpel dissection I performed excisional debridement of this nonviable and necrotic skin and subcutaneous tissues. I performed this in all areas of gross this which included the bilateral inner buttock regions as well as the presacral soft tissues and all the way down to the perianal region to include the posterior 1/2 of the perianal skin. A portion of this tissue was sent to microbiology for tissue culture. The sacrum itself was not exposed and so there is no obvious clinical osteomyelitis. However the posterior 1/2 of the anal sphincters were exposed after debridement of the necrotic overlying skin. The sphincters did appear to be intact and the muscle tissue appeared to be viable. Once I had much of the nonviable tissue removed is I could to grossly I then irrigated the incision sterile saline solution and hemostasis was achieved utilizing judicious point directed electrocautery. I measured the resulting defect soft tissues and this was 22cm in width by 18cm in length by 5cm in maximal depth. Multiple intraoperative photographs were taken to show the preoperative and postoperative status of the wound. The wound was then packed with multiple rolls of Dakin solution moistened Kerlix gauze for by fluffed 4x4 gauze and a very large heavy ABD pad and disposable underwear. The patient will need a diverting colostomy to divert fecal stream from the wound for him to have any chance of this wound healing. This was discussed with the patient's family this will be done tomorrow. The patient tolerated the procedure well no complications. All sponges, needles, and instrument counts were correct at the end procedure. EBL was _100__cc.
[2023-04-15] MEDS: ESCITALOPRAM OXALATE 5 MG TABLET 15 MG PO (21:26)
[2023-04-15] MEDS: traZODone HCL 50 MG TABLET 150 MG PO (21:26)
[2023-04-15] MEDS: TAMSULOSIN HCL 0.4 MG CAPSULE PO (21:27)
[2023-04-15] MEDS: HYDROmorphone HCL INJ (*CRX) 1 MG/ML SYR IV PUSH (21:42)
[2023-04-16] VITALS (19 sets, daily range): BP systolic 99–117; BP diastolic 53–67; PULSE 72–103; RESP 18–28; TEMP 36.4–36.9; O2SAT 93–100
[2023-04-16] MEDS: oxyCODONE HCL (*CRX) 5 MG TAB IR 10 MG PO (00:15)
[2023-04-16] MEDS: PIPERACILLN/TAZ 3.375GM/NS50ML 3.375 GM/50 ML BAG IVPB ×4 (00:35→18:45)
[2023-04-16] MEDS: DEXTROSE 5%/LACTATED RINGERS 1,000 ML 125 ML IV CONT ×2 (00:45→15:43)
[2023-04-16] MEDS: KETOROLAC 30 MG/ML VIAL (*BKC) IV PUSH (05:00)
--- NOTE | 2023-04-16 05:47 | PC.NURSE ---
CALLED SLEEPING CAR PORTER TO REDRAW FOR CRITICAL HEMOGLOBIN. TYPE AND SCREEN ADDED PRE-EMPTIVELY
[2023-04-16 05:50] LABS: Anion Gap 9 mmol/L (8-16); Blood Urea Nitrogen 18 mg/dL (9-20); Calcium 6.6 mg/dL (8.4-10.2); Carbon Dioxide 21 mmol/L (22-30); Chloride 108 mmol/L (98-107); Estimated CRCL calculation 56 ml/min; Estimated Glomerular Filt Rate 47; Glucose 111 mg/dL (65-110); Potassium 3.6 mmol/L (3.4-5.0); Sodium 138 mmol/L (137-145)
[2023-04-16 06:47] LABS: Basophils Percent Auto 0.2 % (0.2-1.2); Eosinophils Absolute Auto 0.3 K/mm3 (0-0.3); Eosinophils Percent Auto 3.2 % (0-4.4); Hematocrit 23.4 % (42.0-52.0); Immature Granulocyte Absolute 0.07 K/mm3 (0.00-0.031); Immature Granulocyte Percent A 0.7 % (0-0.5); Lymphocytes Absolute Auto 1.23 K/mm3 (0.9-3.2); Mean Corpuscular HGB Conc 29.5 g/dl (32-36); Mean Corpuscular Hemoglobin 27.6 pg (26-34); Mean Corpuscular Volume 93.6 fl (80-100); Mean Platelet Volume 9.2 fl (7.4-10.4); Monocytes Absolute Auto 0.7 K/mm3 (0.1-0.6); Monocytes Percent Auto 7.6 % (2.6-8.5); Neutrophils Absolute Auto 7.1 K/mm3 (1.3-6.7); Neutrophils Percent Auto 75.3 % (45.5-73.1); Platelet Count Result 329 k/mm3 (150-375); Red Cell Distribution Width 14.6 % (11.5-14.5); White Blood Count 9.5 K/mm3 (4.5-10.0)
[2023-04-16 07:56] LABS: Hemoglobin 6.9 g/dL (14.0-18.0)
--- NOTE | 2023-04-16 07:57 | WPDANESPN ---
Anes - Prog Note Post-Op Date/Time: 04/16/23 07:57 Cardiovascular status: normal Respiratory status: normal Airway patency: baseline Mental status: baseline Post-Op hydration status: normal Vital Signs: Last Vital Signs Temp 36.6 C 04/16/23 07:46 Pulse 73 04/16/23 07:46 Resp 18 04/16/23 07:46 BP 102/54 L 04/16/23 07:46 Pulse Ox 94 04/16/23 07:46 O2 Del Method High Flow Nasal Cannula 04/15/23 21:35 O2 Flow Rate 4 04/15/23 21:35 Pain Score (VAS): Patient asleep, no nonverbal signs of pain present at this time. I/O: Intake & Output 04/15/23 04/15/23 04/16/23 15:59 23:59 07:59 Intake Total 50 600 50 Output Total 100 450 Balance 50 500 -400 Laboratory Tests 04/16/23 06:27 04/16/23 05:11 04/15/23 04/15/23 04/16/23 05:19 11:45 05:11 WBC 10.9 H RBC 3.41 L Hgb 9.4 L Hct 30.8 L MCV 90.3 MCH 27.6 MCHC 30.5 L RDW 14.4 Plt Count 362 MPV 9.4 Immature Gran % (Auto) 0.4 Neut % (Auto) 80.1 H Lymph % (Auto) 9.1 L Boundary % (Auto) 7.0 Eos % (Auto) 3.2 Baso % (Auto) 0.2 Lymph # (Auto) 0.99 Boundary # (Auto) 0.8 H Eos # (Auto) 0.4 H Baso # (Auto) 0.0 Abs Immat Gran (auto) 0.04 H Absolute Neuts (auto) 8.8 H Absolute Nucleated RBC 0.0 Nucleated RBC % 0.0 Platelet Estimate Schistocytes Puncture Site Left radial ABG pH 7.411 ABG pCO2 37.5 ABG pO2 63.0 L ABG PO2/FiO2 Ratio 1.58 ABG HCO3 23.3 ABG O2 Saturation 92.5 L ABG O2 Content 15.4 L ABG Base Excess -1.0 A-a Gradient 179.1 Oxyhemoglobin 91.7 Total Hemoglobin 11.9 L O2 Delivery Device High flow nasal janice O2 Liters/Min 5.0 FiO2 40 Sodium 140 138 Potassium 3.6 3.6 Chloride 106 108 H Carbon Dioxide 25 21 L Anion Gap 9 9 BUN 18 18 Creatinine 1.20 1.50 H Estim Creat Clear Calc 69 56 Estimated GFR > 60 47 L Glucose 93 111 H Calcium 7.0 L 6.6 L Blood Type Antibody Screen 04/16/23 04/16/23 06:27 06:28 WBC 9.5 RBC 2.50 L Hgb 6.9 L* Hct 23.4 L MCV 93.6 MCH 27.6 MCHC 29.5 L RDW 14.6 H Plt Count 329 MPV 9.2 Immature Gran % (Auto) 0.7 H Neut % (Auto) 75.3 H Lymph % (Auto) 13.0 L Boundary % (Auto) 7.6 Eos % (Auto) 3.2 Baso % (Auto) 0.2 Lymph # (Auto) 1.23 Boundary # (Auto) 0.7 H Eos # (Auto) 0.3 Baso # (Auto) 0.0 Abs Immat Gran (auto) 0.07 H Absolute Neuts (auto) 7.1 H Absolute Nucleated RBC 0.0 Nucleated RBC % 0.0 Platelet Estimate Pending Schistocytes Pending Puncture Site ABG pH ABG pCO2 ABG pO2 ABG PO2/FiO2 Ratio ABG HCO3 ABG O2 Saturation ABG O2 Content ABG Base Excess A-a Gradient Oxyhemoglobin Total Hemoglobin O2 Delivery Device O2 Liters/Min FiO2 Sodium Potassium Chloride Carbon Dioxide Anion Gap BUN Creatinine Estim Creat Clear Calc Estimated GFR Glucose Calcium Blood Type A Positive Antibody Screen Negative Microbiology 04/14/23 15:56 Urine Catheterized Urine Culture - Final 04/14/23 15:56 Blood Blood Culture - Preliminary 04/14/23 16:04 Blood Blood Culture - Preliminary Post-procedural complaints: none Patient Feedback: Patient satisfied with anesthetic care.
--- NOTE | 2023-04-16 08:03 | PM.IMPN ---
Progress Note: A&P Assessment and Plan (1) Wound infection: Code(s): T14.8XXA - Other injury of unspecified body region, initial encounter; L08.9 - Local infection of the skin and subcutaneous tissue, unspecified Status: Acute (2) Acute UTI: Code(s): N39.0 - Urinary tract infection, site not specified Status: Acute (3) Sepsis: Code(s): A41.9 - Sepsis, unspecified organism Status: Acute Plan This is a 63-year-old male with past medical history significant for alcohol abuse, chronic kidney disease, chronic pain syndrome, with anxiety, gout sleep apnea on CPAP, peripheral neuropathy, urinary retention, chronic Durant catheter.? Patient was brought to the emergency room due to infected wound.? Patient is unable to provide much history he is lethargic and obtunded at the time of my visit.? Preliminary workup was significant for subcutaneous soft tissue gas in the buttock area Assessment and plan (1) Wound infection: ?Code(s): Sacral decubital ulcer Admit to regular medical floor Patient started on Zosyn and vancomycin General surgery consult for debridement Await cultures Appreciate general surgeon consultation. Status post sharps scalpel and scissor excisional debridement of skin and subcutaneous tissue from sacral decubitus ulcer wound 04/15/23. (2) Acute UTI: ?Code(s): N39.0 - Urinary tract infection, site not specified ?Status:?Acute ?Assessment and Plan: On vancomycin and Zosyn Await cultures (3) Chronic venous stasis dermatitis of both lower extremities: ?Code(s): I87.2 - Venous insufficiency (chronic) (peripheral) ?Status:?Acute (4) Adult failure to thrive: ?Code(s): R62.7 - Adult failure to thrive ?Status:?Acute ?Assessment and Plan: Likely secondary to chronic illness (5) Wound of buttock: ?Qualifiers: ?Encounter type:?initial encounter??Laterality:?unspecified laterality? Qualified Code(s):?S31.809A - Unspecified open wound of unspecified buttock, initial encounter ?Code(s): S31.809A - Unspecified open wound of unspecified buttock, initial encounter ?Status:?Acute ?Assessment and Plan: Local care (6) Chronic pain syndrome: ?Code(s): G89.4 - Chronic pain syndrome ?Status:?Chronic ?Assessment and Plan: Resume home meds (7) YOSEPH (obstructive sleep apnea): ?Code(s): G47.33 - Obstructive sleep apnea (adult) (pediatric) ?Status:?Acute ?Assessment and Plan: Currently on oxygen by nasal cannula (8) Generalized muscle weakness: ?Code(s): M62.81 - Muscle weakness (generalized) ?Status:?Acute ?Assessment and Plan: Likely deconditioning secondary to chronic illness (9) Chronic kidney disease, stage 3: ?Code(s): N18.30 - Chronic kidney disease, stage 3 unspecified ?Status:?Chronic ?Assessment and Plan: Continue to monitor BUN and creatinine Acute respiratory failure Unclear etiologies, patient has a, tachypnea, patient is on 5 L oxygen ABG showed hypoxemic respiratory failure patient has tachycardia tachypnea Order CT of chest need to rule out PE 04/16: CTA shows no pulmonary embolism, small pleural effusion. Order echo 02/04 10 am: Patient developed respiratory distress, patient was noted choking, some fluid the cause from throat, stat ABG showed hypoxemic respiratory failure, chest x-ray shows left basilar opacity and small pleural effusion, suspecting atelectasis versus less likely pneumonia Provide Lasix 40 mg IV push, place patient on BiPAP Consult credit investigator for evaluation and treat Acute blood loss anemia 04/16/23 Hemoglobin 6.9, hemoglobin 9.9 on arrival in the ED 04/14, patient underwent debridement of sacral decubitus ulcer on April 15 Transfused 2 pack RBC Follow-up CBC and hemoglobin. BOAZ on CKD 04/16. Cr 1.5 >1.2 on 04/15. Possible due to transient hypotension Patient is on dextrose lactated Ringer 125 mL/hour per general surgeon on general
[2023-04-16 08:07] LABS: Anisocytosis 2+ (NORMAL); Hypochromasia 1+ (NORMAL); Microcytosis 2+ (NORMAL); Platelet Estimate Adequate (Adequate)
[2023-04-16 08:08] LABS: Schistocytes None Seen (NORMAL)
--- NOTE | 2023-04-16 08:11 | PCWOUND ---
WOCN NOTE received order to tamra abdomen for colostomy. Sat patient up in bed and laid flat. patient unable to sit up straight in bed to allow complete abdomen assessment for creases. marked the left abdomen with black marker X and placed tegaderm dressing over spot.
[2023-04-16] MEDS: THERAPEUTIC MULTIVITAMINS/MINERALS TAB (*BKC) 1 TABLET PO (09:12)
[2023-04-16] MEDS: ZINC SULFATE 220 MG CAPSULE PO (09:12)
[2023-04-16] MEDS: SIMVASTATIN 20 MG TABLET PO (09:12)
[2023-04-16] MEDS: PARoxetine 10 MG TABLET 30 MG PO (09:12)
[2023-04-16] MEDS: ALPRAZolam (*CRX) 0.5 MG TABLET PO (09:12)
[2023-04-16] MEDS: ASCORBIC ACID 500 MG TABLET PO (09:12)
[2023-04-16] MEDS: VANCOMYCIN 1,500 MG/NS 500 ML 1,500 MG/500 ML BAG 250 MG IVPB (09:13)
[2023-04-16] MEDS: TIMOLOL MALEATE 0.5% OP SOLN 5 ML BOTTLE 1 DROP EACH EYE (09:13)
[2023-04-16] MEDS: FINASTERIDE 5 MG TABLET PO (09:13)
--- NOTE | 2023-04-16 09:40 | PCNFU ---
Nutrition Follow-Up Complete: Increased protein needs as related to wounds as evidenced by pressure ulcer reported. goal: Adequate Intake of at least 75% of meals/supplements Patient has limited progress towards goal, we will continue current goal. Pt current nutrition is NPO. Nutrition recommendation: Advance diet as tolerated per MD orders. Last recorded weight is 113.6 kg, no new weight to report. Bowel Motility:No BM reported. Labs Reviewed:Glu 111, GFR 47, Cr 1.5 Meds Noted:Vit C,LR, Zinc, MVI, Vancomycin, Zosyn, Lexapro Skin: Georges Buttock-stage III pressure ulcer Additional Notes: Patient had debridement 04/15. NPO today for diverting colostomy. When diet order advances recommend regular diet with Ensure Compact TID and Venkatesh BID for wound healing and protein needs. RD will monitor weight, labs, skin, oral intake, meds every 3 days.
[2023-04-16] MEDS: FUROSEMIDE INJ 40 MG/4 ML VIAL IV PUSH (10:00)
[2023-04-16 10:06] LABS: Base Excess ABG -4.3 mEq/l (+/-2.0); Fractional Inspired Oxygen 100 %; HCO3 ABG 23.7 mEq/l (22.0-26.0); Oxygen Content ABG 13.2 %vol (16.0-22.0); Oxygen Saturation ABG 94.4 % (95.0-100.0); PCO2 ABG 58.5 mmHg (35.0-45.0); PO2 ABG 85.5 mmHg (80.0-100.0); PO2 FiO2 Ratio Arterial Blood 0.86 %; Total Hemoglobin 9.9 g/dL (12.0-18.0)
[2023-04-16 10:07] LABS: Device NON-REBREATHER MASK; Modified Allen's Test Pass; Site Drawn LEFT RADIAL; pH ABG 7.225 (7.350-7.450)
[2023-04-16 10:32] LABS: Hematocrit 30.3 % (42.0-52.0); Hemoglobin 9.3 g/dL (14.0-18.0); Mean Corpuscular HGB Conc 30.7 g/dl (32-36); Mean Corpuscular Hemoglobin 28.2 pg (26-34); Mean Corpuscular Volume 91.8 fl (80-100); Mean Platelet Volume 9.1 fl (7.4-10.4); Platelet Count Result 409 k/mm3 (150-375); Red Cell Distribution Width 14.7 % (11.5-14.5); White Blood Count 12.3 K/mm3 (4.5-10.0)
[2023-04-16 10:48] LABS: Anion Gap 9 mmol/L (8-16); Blood Urea Nitrogen 18 mg/dL (9-20); Calcium 7.5 mg/dL (8.4-10.2); Carbon Dioxide 26 mmol/L (22-30); Chloride 108 mmol/L (98-107); Estimated CRCL calculation 49 ml/min; Estimated Glomerular Filt Rate 41; Glucose 127 mg/dL (65-110); Potassium 3.7 mmol/L (3.4-5.0); Sodium 143 mmol/L (137-145)
[2023-04-16 11:01] LABS: Base Excess ABG -4.3 mEq/l (+/-2.0); HCO3 ABG 23.7 mEq/l (22.0-26.0); Oxygen Saturation ABG 94.4 % (95.0-100.0); PCO2 ABG 58.5 mmHg (35.0-45.0); PO2 ABG 85.5 mmHg (80.0-100.0); Total Hemoglobin 9.9 g/dL (12.0-18.0); pH ABG 7.225 (7.350-7.450)
[2023-04-16 11:02] LABS: Device NON-REBREATHER MASK; Fractional Inspired Oxygen 100 %; Modified Allen's Test Pass; Oxygen Content ABG 13.2 %vol (16.0-22.0); PO2 FiO2 Ratio Arterial Blood 0.86 %; Site Drawn LEFT RADIAL
--- NOTE | 2023-04-16 12:14 | PC.NURSE ---
This patient, Nura North, was transferred to [IMU ] on 04/16/23 at 10:30am. Personal belongings sent with patient. Report given to [[place]]. Appropriate documentation sent with patient.
--- NOTE | 2023-04-16 12:29 | PC.NURSE ---
Patient was stable upon entering the room, no complaints. I administered his medications and patient started coughing, and stating ' I can't breathe . I encouraged him to keep coughing. His mom stated he had surgery previously along his throat which caused impairment of swallowing. I called the charge nurse and I started suction. Took vitals and patients O2 saturation was at 77%. Called respiratory for assistance and Dr. Sanches of patient condition. ordered speech therapy. Rapid response was called, and I called to come see the patient. ABG's, chest xray, and one time dose of IV Lasix, CBC and CMP were ordered. Patient was placed on BIPAP per respiratory. Patient was transferred to IMU for further evaluation.
--- NOTE | 2023-04-16 12:44 | WPDPN ---
Progress Note: A&P Assessment and Plan (1) RSV (respiratory syncytial virus infection): Code(s): B33.8 - Other specified viral diseases Status: Acute Assessment and Plan: Treatment as per pulmonology and hospitalist. (2) Decubitus ulcer of sacral region, unstageable: Code(s): L89.150 - Pressure ulcer of sacral region, unstageable Status: Acute Assessment and Plan: Patient has had debridement of the nonviable necrotic and infected tissue. He has a large soft tissue defect unfortunately a wound VAC cannot be applied due to the wound involving the anal region. Will just continue Dakin solution moist to dry packing of the wound b.i.d. and with bowel movements. He needs to have a diverting colostomy placed and the procedure was scheduled for today but with his acute respiratory status change that has been canceled for today. In the meantime we will try to manage any stool output with a fecal containment system. Will re-evaluate see if we can place a colostomy tomorrow. The fear is with his acute pulmonary decompensation today that if he were to be placed under general anesthetic for the colostomy placement today he might not be able to be extubated postoperatively. (3) Sepsis: Code(s): A41.9 - Sepsis, unspecified organism Status: Acute Assessment and Plan: Continue vancomycin and Zosyn. Await culture results. Subjective Date/time seen: 04/16/23 12:44 Interval history: Rapid response called on patient today due to acute respiratory failure. Suspicion was that he may have aspirated with his medications a simple water. Patient already has compromised respiratory status to his RSV. He was transferred to the IMU. Chest x-ray shows only some atelectasis. He is currently being seen by the sales representative livestock. He may have had acute respiratory failure from multi factorial etiology which included multiple pain medications, chronic hypoventilation syndrome, and acute RSV infection. Any case he seems to have stabilized now. Nursing tells me that they have not changed wound dressing. His abdomen was marked for a colostomy placement by the wound care nurses earlier today. Exam Skin: Other: Patient has very large area soft tissue defects involving the bilateral in a buttock, sacral region, and perianal region posteriorly. No gross stool the wound presently. Minimal if any necrotic tissue noted. No active bleeding. Objective Data Vital Signs Vital Signs: Vital Signs - 24 hr 04/15/23 14:05 04/15/23 15:57 04/15/23 16:10 Temperature 36.7 C 36.6 C Pulse Rate 97 92 87 Respiratory Rate 17 14 14 Blood Pressure 112/61 115/57 L 92/53 L Pulse Oximetry 90 99 99 Oxygen Delivery Simple Face Mask Simple Face Mask Oxygen Flow Rate 8 8 04/15/23 16:25 04/15/23 16:40 04/15/23 16:55 Temperature Pulse Rate 99 98 100 Respiratory Rate 24 H 20 18 Blood Pressure 110/58 L 106/63 102/54 L Pulse Oximetry 94 93 93 Oxygen Delivery Simple Face Mask Nasal Cannula Nasal Cannula Oxygen Flow Rate 8 5 5 04/15/23 17:06 04/15/23 17:25 04/15/23 17:40 Temperature 37.0 C 36.4 C Pulse Rate 94 95 91 Respiratory Rate 14 17 Blood Pressure 96/52 L 99/53 L 100/62 Pulse Oximetry 94 95 96 Oxygen Delivery Nasal Cannula Oxygen Flow Rate 5 04/15/23 18:10 04/15/23 21:09 04/15/23 21:35 Temperature 36.9 C 37.1 C Pulse Rate 89 89 Respiratory Rate 17 24 H Blood Pressure 106/66 104/48 L 120/68 Pulse Oximetry 95 97 Oxygen Delivery Oxygen Flow Rate 04/15/23 20:00 04/15/23 21:10 04/15/23 21:35 Temperature Pulse Rate Respiratory Rate Blood Pressure Pulse Oximetry 97 98 97 Oxygen Delivery Nasal Cannula High Flow Nasal Cannula High Flow Nasal Cannula Oxygen Flow Rate 5 5 4 04/16/23 00:37 04/16/23 03:53 04/16/23 07:46 Temperature 36.8 C 36.6 C Pulse Rate 85 73 Respiratory Rate 20 24 H 18 Blood Pressure 112/53 L 102/54 L Pulse Oximetry 94 94 Oxygen Deliv
--- NOTE | 2023-04-16 12:48 | PM.CNPUL ---
Assessment and Plan Assessment and plan (1) RSV (respiratory syncytial virus infection): Code(s): B33.8 - Other specified viral diseases Status: Acute (2) Decubitus ulcer of sacral region, unstageable: Code(s): L89.150 - Pressure ulcer of sacral region, unstageable Status: Acute (3) Acute respiratory failure with hypercapnia: Code(s): J96.02 - Acute respiratory failure with hypercapnia Status: Acute Assessment and Plan: A 63-year-old male patient with a significant decubitus ulcer, who has undergone debridement and is scheduled for a colostomy, has tested positive for an RSV infection and experienced acute hypercapnic respiratory failure over the past 24 hours. His acute hypercapnia is likely due to the pain and other sedative medications administered for his severe pain. Initial blood gases on admission day indicated normal PCO2. Reportedly drowsy earlier, the patient has since awakened following treatment with noninvasive BiPAP ventilatory support and remains on BiPAP. He continues to exhibit hypoxemia when not on BiPAP. A chest CT scan revealed no definitive evidence of bilateral infiltrates to suggest aspiration pneumonia. Small pleural effusions and potential left lower lobe atelectasis were noted, but no pulmonary embolism was evident. He is currently on IV Zosyn and vancomycin, a regimen highly efficacious for possible aspiration pneumonia. The plan is to maintain the current BiPAP support settings and recheck blood gases later today. The acute hypercapnic respiratory failure is presumably connected to the pain control medications administered during the past 24 hours. The use of sedatives and pain medications should be limited as the patient might not be able to maintain alveolar ventilation without ventilatory support. If he becomes lethargic again, intubation will be necessary to protect his airway. This case has been discussed with the hospitalist, and we will jointly monitor the patient's progress. (4) Aspiration into airway: Code(s): T17.908A - Unspecified foreign body in respiratory tract, part unspecified causing other injury, initial encounter Status: Acute History of Present Illness History of Present Illness Consult date: 04/16/23 Chief complaint: UTI, Wound Infection, Wound to Buttock Narrative: This 63-year-old male patient was admitted to the hospital two days ago due to a wound on his buttocks/coccyx. He has multiple medical issues, including chronic kidney disease, a history of attempted suicide by Tylenol ingestion, chronic pain with narcotic dependence, and a history of UTIs. He was discharged from the hospital about a week ago. The patient's wound duration is unclear. He initially sought help at a healthcare facility, yet he claims he did not receive sufficient assistance with turning, which caused discomfort in his lower region. He discharged himself from the facility, went home, and spent a week sitting in a chair. Surgical Services evaluated the patient, and he underwent debridement of his extensive decubitus ulcer yesterday. Over the past 24 hours, he has been given oxycodone and Dilaudid for pain management. He was found lethargic earlier today and likely aspirated food. Arterial blood gases revealed acute hypercapnic respiratory failure which is new since yesterday. Arterial blood gases yesterday showed pH of 7.41 and PCO2 of37.5 whereas on today's measurement the pH was 7.22 and the pCO2 58.5. A chest CT scan showed no pulmonary embolism, but there was a possibility of left lower lobe atelectasis; there were small pleural effusion bilaterally, though no infiltrates. The patient was put on BiPAP support and remains on it, though he stated he does not want to continue with it. Current BiPAP settings 16/7 respiratory rate 18 FiO2 of 40%. He has no known history of lung disease. Pulmonary function testing conducted roughly eight years ago revealed mild obstructive airway disease with an
--- NOTE | 2023-04-16 13:26 | P.CDI_ITS ---
CDI Query Clarification Request Chronic indwelling Gutierrez catheter documented. UTI documented. Patient started on Zosyn 3.375 gm q 6 hours and Vancomycin 1,500 mg Q 18 hours. 04/14/23 Urine culture showed no growth. Clarification request - UTI has been documented, chronic indwelling gutierrez catheter documented. Please clarify if UTI is: * due to/associated with chronic indwelling gutierrez catheter * not due to/associated with chronic indwelling gutierrez catheter * unable to determine <Vero Cuenca RN - Last Filed: 04/16/23 13:30> Clarified Diagnosis Clarified Diagnosis: UTI due to chronic indwelling Gutierrez catheter <Sohail Sanches MD - Last Filed: 04/16/23 16:51>
[2023-04-16 15:16] LABS: Alveolar/Arterial O2 Gradient 162.3 mmHg; Base Excess ABG -0.6 mEq/l (+/-2.0); Device NON-INVASIVE VENT; Fractional Inspired Oxygen 40 %; Modified Allen's Test Pass; Oxygen Content ABG 14.6 %vol (16.0-22.0); Oxygen Saturation ABG 93.7 % (95.0-100.0); Oxyhemoglobin 93.4 % THb (90.0-100.0); PO2 ABG 71.2 mmHg (80.0-100.0); PO2 FiO2 Ratio Arterial Blood 1.78 %; Site Drawn RIGHT RADIAL; Total Hemoglobin 11.1 g/dL (12.0-18.0); pH ABG 7.362 (7.350-7.450)
[2023-04-16 15:17] LABS: Non-Invasive Expiratory Pressure 7 CMH2O; Non-Invasive Inspiratory Pressure 16 CMH2O; Non-Invasive Vent Rate 18 /MIN
[2023-04-16 15:17] LABS: Hematocrit 31.2 % (42.0-52.0); Hemoglobin 9.3 g/dL (14.0-18.0)
--- NOTE | 2023-04-16 18:30 | PC.NURSE ---
This patient, Nura North, was received from [[id number] ] on 04/16/23 at 1020. Patient/family oriented to unit policies and routines
[2023-04-16 19:54] LABS: Glucose Point of Care 122 mg/dl (65-105)
[2023-04-17] VITALS (14 sets, daily range): BP systolic 113–141; BP diastolic 59–71; PULSE 72–104; RESP 12–20; TEMP 36.4–37.1; O2SAT 95–99
[2023-04-17] MEDS: PIPERACILLN/TAZ 3.375GM/NS50ML 3.375 GM/50 ML BAG IVPB ×4 (00:39→20:50)
[2023-04-17 03:09] LABS: Basophils Percent Auto 0.3 % (0.2-1.2); Eosinophils Absolute Auto 0.6 K/mm3 (0-0.3); Eosinophils Percent Auto 5.1 % (0-4.4); Hematocrit 23.5 % (42.0-52.0); Hemoglobin 7.1 g/dL (14.0-18.0); Immature Granulocyte Absolute 0.06 K/mm3 (0.00-0.031); Immature Granulocyte Percent A 0.6 % (0-0.5); Lymphocytes Absolute Auto 1.34 K/mm3 (0.9-3.2); Lymphocytes Percent Auto 12.5 % (18.3-44.2); Mean Corpuscular HGB Conc 30.2 g/dl (32-36); Mean Corpuscular Hemoglobin 27.5 pg (26-34); Mean Corpuscular Volume 91.1 fl (80-100); Mean Platelet Volume 9.3 fl (7.4-10.4); Monocytes Absolute Auto 0.6 K/mm3 (0.1-0.6); Monocytes Percent Auto 5.2 % (2.6-8.5); Neutrophils Absolute Auto 8.2 K/mm3 (1.3-6.7); Neutrophils Percent Auto 76.3 % (45.5-73.1); Platelet Count Result 387 k/mm3 (150-375); Red Blood Count 2.58 M/mm3 (4.6-6.20); Red Cell Distribution Width 14.6 % (11.5-14.5); White Blood Count 10.7 K/mm3 (4.5-10.0)
[2023-04-17 03:20] LABS: Anion Gap 3 mmol/L (8-16); Blood Urea Nitrogen 16 mg/dL (9-20); Calcium 7.1 mg/dL (8.4-10.2); Carbon Dioxide 30 mmol/L (22-30); Chloride 110 mmol/L (98-107); Estimated CRCL calculation 56 ml/min; Estimated Glomerular Filt Rate 47; Glucose 112 mg/dL (65-110); Potassium 3.4 mmol/L (3.4-5.0); Sodium 143 mmol/L (137-145)
[2023-04-17 03:26] LABS: Vancomycin Trough 24.8 ug/mL (10.0-20.0)
[2023-04-17 03:39] LABS: Estimated CRCL calculation 56 ml/min; Estimated Glomerular Filt Rate 47
[2023-04-17] MEDS: HYDROmorphone HCL INJ (*CRX) 1 MG/ML SYR IV PUSH ×2 (05:51→10:07)
[2023-04-17] MEDS: DEXTROSE 5%/LACTATED RINGERS 1,000 ML 75 ML IV CONT (05:52)
--- NOTE | 2023-04-17 09:45 | PM.IMPN ---
Progress Note: A&P Assessment and Plan (1) Wound infection: Code(s): T14.8XXA - Other injury of unspecified body region, initial encounter; L08.9 - Local infection of the skin and subcutaneous tissue, unspecified Status: Acute (2) Acute UTI: Code(s): N39.0 - Urinary tract infection, site not specified Status: Acute (3) Sepsis: Code(s): A41.9 - Sepsis, unspecified organism Status: Acute Plan This is a 63-year-old male with past medical history significant for alcohol abuse, chronic kidney disease, chronic pain syndrome, with anxiety, gout sleep apnea on CPAP, peripheral neuropathy, urinary retention, chronic Durant catheter.? Patient was brought to the emergency room due to infected wound.? Patient is unable to provide much history he is lethargic and obtunded at the time of my visit.? Preliminary workup was significant for subcutaneous soft tissue gas in the buttock area Assessment and plan (1) Wound infection: ?Code(s): Sacral decubital ulcer Admit to regular medical floor Patient started on Zosyn and vancomycin General surgery consult for debridement Await cultures Appreciate general surgeon consultation. Status post sharps scalpel and scissor excisional debridement of skin and subcutaneous tissue from sacral decubitus ulcer wound 04/15/23. Wound culture grows mix of organismss, , Growth did not detect the presence of S.aureus, beta-hemolytic Streptococci or P.aeruginosa Bacteremia Blood culture 2023 grows Staphylococcus epidermidis, resistant to oxacillin Continue vancomycin Zosyn Repeat blood culture 04/17/23 (2) Acute UTI: ?Code(s): N39.0 - Urinary tract infection, site not specified ?Status:?Acute ?Assessment and Plan: On vancomycin and Zosyn Urine culture no growth (3) Chronic venous stasis dermatitis of both lower extremities: ?Code(s): I87.2 - Venous insufficiency (chronic) (peripheral) ?Status:?Acute (4) Adult failure to thrive: ?Code(s): R62.7 - Adult failure to thrive ?Status:?Acute ?Assessment and Plan: Likely secondary to chronic illness (5) Wound of buttock: ?Qualifiers: ?Encounter type:?initial encounter??Laterality:?unspecified laterality? Qualified Code(s):?S31.809A - Unspecified open wound of unspecified buttock, initial encounter ?Code(s): S31.809A - Unspecified open wound of unspecified buttock, initial encounter ?Status:?Acute ?Assessment and Plan: Local care (6) Chronic pain syndrome: ?Code(s): G89.4 - Chronic pain syndrome ?Status:?Chronic ?Assessment and Plan: Resume home meds (7) YOSEPH (obstructive sleep apnea): ?Code(s): G47.33 - Obstructive sleep apnea (adult) (pediatric) ?Status:?Acute ?Assessment and Plan: Currently on oxygen by nasal cannula (8) Generalized muscle weakness: ?Code(s): M62.81 - Muscle weakness (generalized) ?Status:?Acute ?Assessment and Plan: Likely deconditioning secondary to chronic illness (9) Chronic kidney disease, stage 3: ?Code(s): N18.30 - Chronic kidney disease, stage 3 unspecified ?Status:?Chronic ?Assessment and Plan: Continue to monitor BUN and creatinine Acute respiratory failure Unclear etiologies, patient has a, tachypnea, patient is on 5 L oxygen ABG showed hypoxemic respiratory failure patient has tachycardia tachypnea Order CT of chest need to rule out PE 04/16: CTA shows no pulmonary embolism, small pleural effusion. Order echo 02/04 10 am: Patient developed respiratory distress, patient was noted choking, some fluid the cause from throat, stat ABG showed hypoxemic respiratory failure, chest x-ray shows left basilar opacity and small pleural effusion, suspecting atelectasis versus less likely pneumonia Provide Lasix 40 mg IV push, place patient on BiPAP Consult local combination truck driver for evaluation and treat 04/17 off bipap and on 2 L O2 Acute blood loss anemia
[2023-04-17] MEDS: ALPRAZolam (*CRX) 0.5 MG TABLET PO ×3 (10:02→20:51)
[2023-04-17] MEDS: THERAPEUTIC MULTIVITAMINS/MINERALS TAB (*BKC) 1 TABLET PO (10:03)
[2023-04-17] MEDS: ASCORBIC ACID 500 MG TABLET PO (10:03)
[2023-04-17] MEDS: FINASTERIDE 5 MG TABLET PO (10:03)
[2023-04-17] MEDS: PARoxetine 10 MG TABLET 30 MG PO (10:05)
[2023-04-17] MEDS: PREGABALIN (*CRX) 75 MG CAPSULE 150 MG PO ×2 (10:05→15:44)
[2023-04-17] MEDS: SIMVASTATIN 20 MG TABLET PO (10:06)
[2023-04-17] MEDS: ZINC SULFATE 220 MG CAPSULE PO (10:06)
[2023-04-17] MEDS: TIMOLOL MALEATE 0.5% OP SOLN 5 ML BOTTLE 1 DROP EACH EYE (10:06)
[2023-04-17 10:08] LABS: Hematocrit 26.4 % (42.0-52.0); Hemoglobin 8.1 g/dL (14.0-18.0)
[2023-04-17 10:30] LABS: Iron 24 ug/dL (49-181)
[2023-04-17 10:39] LABS: Percent Iron Saturation 21 % (20-50)
--- NOTE | 2023-04-17 11:01 | WPDPN ---
Progress Note: A&P Assessment and Plan (1) Aspiration into airway: Code(s): T17.908A - Unspecified foreign body in respiratory tract, part unspecified causing other injury, initial encounter Status: Acute Assessment and Plan: Patient may have had issues aspiration yesterday. Respiratory status is better today. Bedside swallow study as per speech therapy is pending today. Patient can have full liquids from a surgery standpoint with any modifications as per speech therapy if he is not aspirating. No solid food until after he has his colostomy placed. (2) Decubitus ulcer of sacral region, unstageable: Code(s): L89.150 - Pressure ulcer of sacral region, unstageable Status: Acute Assessment and Plan: Wound continues to be clean. Rectal tube is in place to try to control any sore lesion of the wound with any stool. Continue Dakin solution moist to dry gauze dressings. Planned for diverting colostomy Wednesday. Subjective Date/time seen: 04/17/23 11:01 Interval history: Patient improved today in regards to his respiratory status. Sitting up in bed on 2L nasal cannula oxygen. O2 saturations are adequate. His biggest complaint today is not being able to eat or drink. A bedside swallow evaluation by speech therapy is pending due to the fact he may have had issues with aspiration yesterday. The sacral perianal wound dressing was changed this morning and there was no swelling of the wound with stool. No large areas of necrotic tissue were noted. No bleeding noted. White blood cell count is slightly elevated 10,700. No fever. Exam Skin: Other: Large soft tissue defect bilateral inner buttock and sacral region to include extension to the posterior perianal region. No foul-smelling drainage or purulence is noted no necrotic tissue. Objective Data Vital Signs Vital Signs: Vital Signs - 24 hr 04/16/23 11:31 04/16/23 14:58 04/16/23 17:40 Temperature Pulse Rate 103 H 93 Respiratory Rate 20 20 Blood Pressure 112/61 Pulse Oximetry 93 95 96 Oxygen Delivery Non-Rebreather Mask BiPAP Nasal Cannula Oxygen Flow Rate 15 2 Fraction of Inspired Oxygen 04/16/23 12:00 04/16/23 16:00 04/16/23 18:00 Temperature Pulse Rate 78 83 76 Respiratory Rate Blood Pressure Pulse Oximetry Oxygen Delivery Oxygen Flow Rate Fraction of Inspired Oxygen 04/16/23 14:00 04/16/23 18:03 04/16/23 16:00 Temperature 36.4 C L Pulse Rate 81 86 Respiratory Rate 18 Blood Pressure 117/67 Pulse Oximetry 100 97 Oxygen Delivery BiPAP Oxygen Flow Rate Fraction of Inspired Oxygen 40 04/16/23 22:01 04/16/23 23:29 04/16/23 20:00 Temperature 36.9 C Pulse Rate 77 72 Respiratory Rate 18 Blood Pressure 99/55 L Pulse Oximetry 96 94 Oxygen Delivery Nasal Cannula Oxygen Flow Rate 2 Fraction of Inspired Oxygen 04/16/23 22:00 04/17/23 00:00 04/16/23 20:00 Temperature Pulse Rate 87 80 77 Respiratory Rate 18 Blood Pressure Pulse Oximetry 96 Oxygen Delivery Nasal Cannula Oxygen Flow Rate 2 Fraction of Inspired Oxygen 04/17/23 00:00 04/17/23 00:00 04/17/23 02:00 Temperature 36.4 C Pulse Rate 80 91 80 Respiratory Rate 20 18 Blood Pressure 138/71 Pulse Oximetry 96 98 Oxygen Delivery Nasal Cannula Oxygen Flow Rate 2 Fraction of Inspired Oxygen 04/17/23 04:50 04/17/23 04:00 04/17/23 04:00 Temperature 36.7 C Pulse Rate 85 85 91 Respiratory Rate 18 18 Blood Pressure 141/59 H Pulse Oximetry 95 95 Oxygen Delivery Nasal Cannula Oxygen Flow Rate 2 Fraction of Inspired Oxygen 04/17/23 05:25 04/17/23 08:00 04/17/23 08:00 Temperature 36.8 C Pulse Rate 81 81 80 Respiratory Rate 20 Blood Pressure 130/64 Pulse Oximetry 96 Oxygen Delivery Oxygen Flow Rate Fraction of Inspired Oxygen Intake/Output Intake/Output: Intake & Output 04/14/23 04/15/23 04/16/23 04/17/23 23:59
--- NOTE | 2023-04-17 11:17 | PM.PNPUL ---
Progress Note: A&P Assessment and Plan (1) Acute respiratory failure with hypercapnia: Code(s): J96.02 - Acute respiratory failure with hypercapnia Status: Acute Assessment and Plan: A 63-year-old male patient with a significant decubitus ulcer, who has undergone debridement and is scheduled for a colostomy, has tested positive for an RSV infection and experienced acute hypercapnic respiratory failure over the past 24 hours. His acute hypercapnia is likely due to the pain and other sedative medications administered for his severe pain. Initial blood gases on admission day indicated normal PCO2. Reportedly drowsy earlier, the patient has since awakened following treatment with noninvasive BiPAP ventilatory support and remains on BiPAP. She has not used a BiPAP support over the last 12 hours. While on blood support yesterday the repeat blood gases showed pCO2 near normal range. Today he has had some congestion but no shortness of breath fever chills. Creatinine higher today. Vancomycin has been held. There is a question of aspiration but he has no signs of new infiltrates on today's chest x-ray. Plan: Continue to monitor respiratory status. BiPAP support if he becomes drowsy. Patient's relatives will bring CPAP machine to use at night during this hospitalization. Add nebulized short-acting bronchodilators p.r.n. use. (2) RSV (respiratory syncytial virus infection): Code(s): B33.8 - Other specified viral diseases Status: Acute (3) Decubitus ulcer of sacral region, unstageable: Code(s): L89.150 - Pressure ulcer of sacral region, unstageable Status: Acute (4) YOSEPH (obstructive sleep apnea): Code(s): G47.33 - Obstructive sleep apnea (adult) (pediatric) Status: Acute Subjective Date/time seen: 04/17/23 11:17 Interval history: Patient has no new respiratory symptoms. Has not used BiPAP support last night. Appears fully awake on nasal cannula. Has had some congestion. No fever. Regarding sleep apnea and CPAP the patient stated that because of weight loss he discontinued CPAP approximately 2 months ago.; he still has the CPAP machine at home Review of Systems Review of Systems: All systems reviewed & are unremarkable except as noted in HPI and below (HPI and below) Exam Narrative: GENERAL APPEARANCE: Well developed, well nourished, alert and cooperative, who appears chronically ill currently on nasal cannula, SKIN: Inspection of the skin reveals no rashes, ulcerations or petechiae. HEENT: Sclerae anicteric and conjunctivae pink and moist. Extraocular movements were intact and pupils were equal, round. NECK: Supple. There was no thyroid enlargement, and no tenderness, or masses were felt. LUNGS: Crackles anteriorly more on right lateral chest, no wheezing CARDIAC: There was a regular rate and rhythm without any murmurs, gallops, rubs. ABDOMEN: Soft and nontender with normal bowel sounds. There was no organomegaly. LYMPH NODES: No lymphadenopathy was appreciated in the neck EXTREMITIES: No cyanosis, clubbing or edema. Chronic stasis dermatitis changes NEUROLOGIC: Alert oriented x3, moving all extremities Objective Data Vital Signs Vital Signs: Vital Signs - 24 hr 04/16/23 11:31 04/16/23 14:58 04/16/23 17:40 Temperature Pulse Rate 103 H 93 Respiratory Rate 20 20 Blood Pressure 112/61 Pulse Oximetry 93 95 96 Oxygen Delivery Non-Rebreather Mask BiPAP Nasal Cannula Oxygen Flow Rate 15 2 Fraction of Inspired Oxygen 04/16/23 12:00 04/16/23 16:00 04/16/23 18:00 Temperature Pulse Rate 78 83 76 Respiratory Rate Blood Pressure Pulse Oximetry Oxygen Delivery Oxygen Flow Rate Fraction of Inspired Oxygen 04/16/23 14:00 04/16/23 18:03 04/16/23 16:00 Temperature 36.4 C L Pulse Rate 81 86 Respiratory Rate 18 Blood Pressure 117/67 Pulse Oximetry 100 97 Oxygen Delivery BiPAP Oxygen Flow Rate Fraction of Inspired Oxy
--- NOTE | 2023-04-17 12:30 | PCSTNOTE ---
Bedside swallowing evaluation completed. Patient seen bedside positioned approximated upright, as patient able to tolerate due to infected wound on buttocks. Mother present. Patient provided self report regarding choking incident yesterday, and stated that he choked while swallowing pills because he was positioned with his head sideways and not upright, and there was a lot of activity and distractions in his room. Trials of thin liquid by spoon, cup, and straw were given and no signs of aspiration or choking were observed. In addition, pureed consistency, and pills in pureed consistency (applesauce) were given by spoon, and patient again showed no signs of aspiration or choking. Per nurse, patient is going on a full liquid diet at this time. When appropriate, the following is recommended: soft and bite sized diet (level 6), thin liquids (level 0). Swallowing precaution recommendations include small sips and bites, upright positioning, chin tuck. Reviewed with patient and he was able to return demonstrate. Please note that silent aspiration cannot be ruled out at bedside and can be evaluated with a modified barium swallow study (MBSS). However, due to patient's body proportions his lower body is 4 inches too large for videofluoroscopy seat in radiology suite. Due to wound on buttocks modified seating or readjusting patient's body to fit into chair are not recommended. Swallowing precaution recommendations placed in chart. Thank you for the referral of this patient.
[2023-04-17] MEDS: FERROUS SULFATE 325 MG TABLET DR PO (15:43)
[2023-04-17] MEDS: traZODone HCL 50 MG TABLET 150 MG PO (20:51)
[2023-04-17] MEDS: ESCITALOPRAM OXALATE 5 MG TABLET 15 MG PO (20:51)
[2023-04-17 22:48] LABS: Hematocrit 24.4 % (42.0-52.0); Hemoglobin 7.3 g/dL (14.0-18.0)
[2023-04-18] VITALS (23 sets, daily range): BP systolic 104–126; BP diastolic 42–66; PULSE 74–87; RESP 12–30; TEMP 36.1–37.5; O2SAT 94–100
[2023-04-18] MEDS: PIPERACILLN/TAZ 3.375GM/NS50ML 3.375 GM/50 ML BAG IVPB ×4 (01:18→17:56)
[2023-04-18 02:20] LABS: Hematocrit 22.8 % (42.0-52.0)
[2023-04-18 02:33] LABS: Hemoglobin 6.9 g/dL (14.0-18.0)
[2023-04-18 03:08] LABS: Vancomycin Trough 16.2 ug/mL (10.0-20.0)
[2023-04-18 03:31] LABS: Anion Gap 7 mmol/L (8-16); Blood Urea Nitrogen 12 mg/dL (9-20); Calcium 6.9 mg/dL (8.4-10.2); Carbon Dioxide 28 mmol/L (22-30); Chloride 106 mmol/L (98-107); Estimated CRCL calculation 64 ml/min; Estimated Glomerular Filt Rate 56; Glucose 99 mg/dL (65-110); Potassium 3.2 mmol/L (3.4-5.0); Sodium 141 mmol/L (137-145)
[2023-04-18] MEDS: TUBING, BLOOD PLUM PUMP TUBING 1 EACH XX (03:50)
[2023-04-18] MEDS: SODIUM CHLORIDE 0.9% IV 250 ML 30 ML IV CONT ×2 (03:50→12:31)
[2023-04-18] MEDS: HYDROmorphone HCL INJ (*CRX) 1 MG/ML SYR IV PUSH (07:04)
[2023-04-18] MEDS: TIMOLOL MALEATE 0.5% OP SOLN 5 ML BOTTLE 1 DROP EACH EYE (09:05)
[2023-04-18] MEDS: PREGABALIN (*CRX) 75 MG CAPSULE 150 MG PO ×3 (09:06→17:09)
[2023-04-18] MEDS: PARoxetine 10 MG TABLET 30 MG PO (09:07)
[2023-04-18] MEDS: ALPRAZolam (*CRX) 0.5 MG TABLET PO ×4 (09:07→21:57)
[2023-04-18] MEDS: ZINC SULFATE 220 MG CAPSULE PO (09:08)
[2023-04-18] MEDS: ASCORBIC ACID 500 MG TABLET PO (09:10)
[2023-04-18] MEDS: THERAPEUTIC MULTIVITAMINS/MINERALS TAB (*BKC) 1 TABLET PO (09:10)
[2023-04-18] MEDS: FINASTERIDE 5 MG TABLET PO (09:11)
[2023-04-18] MEDS: SIMVASTATIN 20 MG TABLET PO (09:13)
[2023-04-18] MEDS: VANCOMYCIN 1,500 MG/NS 500 ML 1,500 MG/500 ML BAG 250 MG IVPB (09:13)
--- NOTE | 2023-04-18 10:02 | P.PNIM_ITS ---
Progress Note: A&P Assessment and Plan (1) Wound infection: Code(s): T14.8XXA - Other injury of unspecified body region, initial encounter; L08.9 - Local infection of the skin and subcutaneous tissue, unspecified Status: Acute (2) Acute UTI: Code(s): N39.0 - Urinary tract infection, site not specified Status: Acute (3) Sepsis: Code(s): A41.9 - Sepsis, unspecified organism Status: Acute Plan This is a 63-year-old male with past medical history significant for alcohol abuse, chronic kidney disease, chronic pain syndrome, with anxiety, gout sleep apnea on CPAP, peripheral neuropathy, urinary retention, chronic Durant catheter.? Patient was brought to the emergency room due to infected wound.? Patient is unable to provide much history he is lethargic and obtunded at the time of my visit.? Preliminary workup was significant for subcutaneous soft tissue gas in the buttock area Assessment and plan (1) Wound infection: ?Code(s): Sacral decubital ulcer Admit to regular medical floor Patient started on Zosyn and vancomycin General surgery consult for debridement Await cultures Appreciate general surgeon consultation. Status post sharps scalpel and scissor excisional debridement of skin and subcutaneous tissue from sacral decubitus ulcer wound 04/15/23. Wound culture grows mix of organismss, , Growth did not detect the presence of S.aureus, beta-hemolytic Streptococci or P.aeruginosa Bacteremia Blood culture 2023 grows Staphylococcus epidermidis, resistant to oxacillin Continue vancomycin Zosyn Repeat blood culture 04/17/23, pending report (2) Acute UTI: ?Code(s): N39.0 - Urinary tract infection, site not specified ?Status:?Acute ?Assessment and Plan: On vancomycin and Zosyn Urine culture no growth (3) Chronic venous stasis dermatitis of both lower extremities: ?Code(s): I87.2 - Venous insufficiency (chronic) (peripheral) ?Status:?Acute (4) Adult failure to thrive: ?Code(s): R62.7 - Adult failure to thrive ?Status:?Acute ?Assessment and Plan: Likely secondary to chronic illness (5) Wound of buttock: ?Qualifiers: ?Encounter type:?initial encounter??Laterality:?unspecified laterality? Qualified Code(s):?S31.809A - Unspecified open wound of unspecified buttock, initial encounter ?Code(s): S31.809A - Unspecified open wound of unspecified buttock, initial encounter ?Status:?Acute ?Assessment and Plan: Local care (6) Chronic pain syndrome: ?Code(s): G89.4 - Chronic pain syndrome ?Status:?Chronic ?Assessment and Plan: Resume home meds (7) YOSEPH (obstructive sleep apnea): ?Code(s): G47.33 - Obstructive sleep apnea (adult) (pediatric) ?Status:?Acute ?Assessment and Plan: Currently on oxygen by nasal cannula (8) Generalized muscle weakness: ?Code(s): M62.81 - Muscle weakness (generalized) ?Status:?Acute ?Assessment and Plan: Likely deconditioning secondary to chronic illness (9) Chronic kidney disease, stage 3: ?Code(s): N18.30 - Chronic kidney disease, stage 3 unspecified ?Status:?Chronic ?Assessment and Plan: Continue to monitor BUN and creatinine Acute respiratory failure Unclear etiologies, patient has a, tachypnea, patient is on 5 L oxygen ABG showed hypoxemic respiratory failure patient has tachycardia tachypnea Order CT of chest need to rule out PE 04/16: CTA shows no pulmonary embolism, small pleural effusion. Order echo 11
--- NOTE | 2023-04-18 10:59 | PM.PNPUL ---
Progress Note: A&P Assessment and Plan (1) Acute respiratory failure with hypercapnia: Code(s): J96.02 - Acute respiratory failure with hypercapnia Status: Acute Assessment and Plan: A 63-year-old male patient with a significant decubitus ulcer, who has undergone debridement and is scheduled for a colostomy, has tested positive for an RSV infection and experienced acute hypercapnic respiratory failure 2 days ago. His acute hypercapnia is likely due to the pain and other sedative medications administered for his severe pain. Initial blood gases on admission day indicated normal PCO2. Reportedly drowsy earlier, the patient has since awakened following treatment with noninvasive BiPAP ventilatory support. Remains fully awake on supplemental oxygen via nasal cannula off BiPAP for the last 24 hours. Last chest x-ray showed no new infiltrates. Plan: Continue to monitor respiratory status. BiPAP support if he becomes drowsy. (2) RSV (respiratory syncytial virus infection): Code(s): B33.8 - Other specified viral diseases Status: Acute (3) Decubitus ulcer of sacral region, unstageable: Code(s): L89.150 - Pressure ulcer of sacral region, unstageable Status: Acute (4) Acute kidney injury superimposed on chronic kidney disease: Code(s): N17.9 - Acute kidney failure, unspecified; N18.9 - Chronic kidney disease, unspecified Status: Acute (5) YOSEPH (obstructive sleep apnea): Code(s): G47.33 - Obstructive sleep apnea (adult) (pediatric) Status: Acute Assessment and Plan: The patient has a medical history of obstructive sleep apnea. Previous sleep study done in 01/2013 had shown severe obstructive sleep apnea with AHI of 96.6. Patient was successfully titrated to CPAP of 9 cm of water pressure. His BMI at the time of the sleep study was 42.8 kg per sq meter. The patient reported using CPAP support at home for several years, but has recently discontinued its use. His decision to stop using the CPAP device was driven by his belief that it is no longer necessary, particularly following his weight loss. Patient will definitely need reassessment for his sleep disordered breathing. On clinical grounds he does not have a symptoms suggestive of a uncontrolled sleep disordered breathing. He has no evidence of chronic hypercapnia and as stated his most recent acute hypercapnia was related to opiate and other sedative medications for pain control. Subjective Date/time seen: 04/18/23 10:59 Interval history: Patient has no new respiratory symptoms. Remains fully awake on nasal cannula 2 liters/minute. Has not used BiPAP support over the last 24 hours. Afebrile, on antibiotics for extensive decubitus ulcer. Review of Systems Review of Systems: All systems reviewed & are unremarkable except as noted in HPI and below (HPI and below) Exam Narrative: GENERAL APPEARANCE: Well developed, well nourished, alert and cooperative, who appears chronically ill currently on nasal cannula, SKIN: Inspection of the skin reveals no rashes, ulcerations or petechiae. HEENT: Sclerae anicteric and conjunctivae pink and moist. Extraocular movements were intact and pupils were equal, round. NECK: Supple. There was no thyroid enlargement, and no tenderness, or masses were felt. LUNGS: Crackles anteriorly more on right lateral chest, no wheezing CARDIAC: There was a regular rate and rhythm without any murmurs, gallops, rubs. ABDOMEN: Soft and nontender with normal bowel sounds. There was no organomegaly. LYMPH NODES: No lymphadenopathy was appreciated in the neck EXTREMITIES: No cyanosis, clubbing or edema. Chronic stasis dermatitis changes NEUROLOGIC: Alert oriented x3, moving all extremities Objective Data Vital Signs Vital Signs: Vital Signs - 24 hr 04/17/23 12:00 04/17/23 15:59 04/17/23 12:00 Temperature 36.8 C 36.9 C Pulse Rate 86 83 83 Respiratory Rate 16 12 12 Blood Pressure 126/63 116
[2023-04-18] MEDS: FERROUS SULFATE 325 MG TABLET DR PO (12:31)
[2023-04-18] MEDS: POTASSIUM CHLORIDE 20 MEQ PACKET (FOR LIQUID) 40 MEQ PO (12:54)
[2023-04-18] MEDS: KCL 20 MEQ/SW 100 ML 100 ML 50 MEQ IVPB (14:30)
[2023-04-18 15:08] LABS: Basophils Percent Auto 0.3 % (0.2-1.2); Eosinophils Absolute Auto 0.6 K/mm3 (0-0.3); Hematocrit 28.6 % (42.0-52.0); Immature Granulocyte Absolute 0.12 K/mm3 (0.00-0.031); Lymphocytes Absolute Auto 1.53 K/mm3 (0.9-3.2); Lymphocytes Percent Auto 13.3 % (18.3-44.2); Mean Corpuscular HGB Conc 31.5 g/dl (32-36); Mean Corpuscular Volume 89.1 fl (80-100); Mean Platelet Volume 8.9 fl (7.4-10.4); Monocytes Absolute Auto 0.8 K/mm3 (0.1-0.6); Neutrophils Absolute Auto 8.5 K/mm3 (1.3-6.7); Neutrophils Percent Auto 73.4 % (45.5-73.1); Platelet Count Result 405 k/mm3 (150-375); Red Blood Count 3.21 M/mm3 (4.6-6.20); White Blood Count 11.5 K/mm3 (4.5-10.0)
[2023-04-18 15:18] LABS: Anion Gap 4 mmol/L (8-16); Blood Urea Nitrogen 11 mg/dL (9-20); Carbon Dioxide 30 mmol/L (22-30); Chloride 105 mmol/L (98-107); Estimated CRCL calculation 69 ml/min; Estimated Glomerular Filt Rate > 60; Glucose 97 mg/dL (65-110); Potassium 3.4 mmol/L (3.4-5.0); Sodium 139 mmol/L (137-145)
--- NOTE | 2023-04-18 15:20 | PC.NURSE ---
This patient, Nura North, was received from [ imu] on 04/18/23 at 1515. Patient/family oriented to unit policies and routines
--- NOTE | 2023-04-18 15:49 | WPDPN ---
Progress Note: A&P Assessment and Plan (1) Decubitus ulcer of sacral region, unstageable: Code(s): L89.150 - Pressure ulcer of sacral region, unstageable Status: Acute Assessment and Plan: Decubitus ulcer wound remains clean. He needs have a diverting colostomy performed to keep the fecal material from getting onto the wound. We will plan on attempting a laparoscopic diverting colostomy tomorrow. May need conversion to an open colostomy placement. Will place a end colostomy and he has been marked by the ostomy nurses already. He will remain NPO after midnight. Continue IV antibiotics. Subjective Date/time seen: 04/18/23 15:49 Interval history: Patient transfer from IMU to some regular surgical floor today. He is awake and alert in bed and only on 2L nasal cannula oxygen. He is drinking liquids well without any issues. He had a stool today around the rectal tube and the dressing was changed. No fever. White [place] stable [place] 10 [place] [id number]. Exam GI: Other: Abdomen is soft and nondistended. Benign. Skin: Other: Perianal and sacral wound minimal granulation tissue. No necrotic tissue. Drainage is serous. Objective Data Vital Signs Vital Signs: Vital Signs - 24 hr 04/17/23 15:59 04/17/23 16:00 04/17/23 16:00 Temperature 36.9 C Pulse Rate 83 72 Respiratory Rate 12 Blood Pressure 116/67 Pulse Oximetry 96 97 Oxygen Delivery Nasal Cannula Oxygen Flow Rate 2 Fraction of Inspired Oxygen 04/17/23 18:00 04/17/23 20:00 04/17/23 20:00 Temperature 37.1 C Pulse Rate 78 81 82 Respiratory Rate 12 Blood Pressure 113/59 L Pulse Oximetry 97 Oxygen Delivery Oxygen Flow Rate Fraction of Inspired Oxygen 04/17/23 22:00 04/18/23 00:00 04/18/23 00:00 Temperature 36.4 C Pulse Rate 104 H 85 85 Respiratory Rate 12 Blood Pressure 107/42 L Pulse Oximetry 100 Oxygen Delivery Oxygen Flow Rate Fraction of Inspired Oxygen 04/18/23 03:46 04/18/23 04:02 04/18/23 02:00 Temperature 37.4 C 37.3 C Pulse Rate 78 75 79 Respiratory Rate 30 H 18 Blood Pressure 114/49 L 110/49 L Pulse Oximetry 95 96 Oxygen Delivery Oxygen Flow Rate Fraction of Inspired Oxygen 04/18/23 04:00 04/18/23 04:00 04/18/23 05:02 Temperature 36.7 C Pulse Rate 75 75 Respiratory Rate 20 Blood Pressure 118/54 L Pulse Oximetry 99 95 Oxygen Delivery Nasal Cannula Oxygen Flow Rate 2 Fraction of Inspired Oxygen 04/18/23 06:02 04/18/23 06:30 04/18/23 06:00 Temperature 37.0 C 37.0 C Pulse Rate 77 74 76 Respiratory Rate 18 22 H Blood Pressure 121/51 L 117/55 L Pulse Oximetry 97 97 Oxygen Delivery Oxygen Flow Rate Fraction of Inspired Oxygen 04/18/23 08:00 04/18/23 08:56 04/18/23 09:16 Temperature 37.0 C 36.4 C 36.1 C L Pulse Rate 81 79 81 Respiratory Rate 20 16 16 Blood Pressure 125/61 118/61 115/60 Pulse Oximetry 94 98 Oxygen Delivery Oxygen Flow Rate Fraction of Inspired Oxygen 04/18/23 10:18 04/18/23 11:18 04/18/23 12:27 Temperature 36.7 C 36.6 C 36.6 C Pulse Rate 74 76 76 Respiratory Rate 16 20 20 Blood Pressure 125/66 120/63 120/63 Pulse Oximetry 98 94 94 Oxygen Delivery Oxygen Flow Rate Fraction of Inspired Oxygen 04/18/23 12:39 04/18/23 08:00 04/18/23 08:00 Temperature 36.6 C Pulse Rate 86 86 83 Respiratory Rate 24 H 24 H Blood Pressure 107/66 Pulse Oximetry 94 94 Oxygen Delivery Nasal Cannula Oxygen Flow Rate 2 Fraction of Inspired Oxygen 40 04/18/23 10:00 04/18/23 12:00 04/18/23 14:00 Temperature Pulse Rate 83 83 87 Respiratory Rate Blood Pressure Pulse Oximetry Oxygen Delivery Oxygen Flow Rate Fraction of Inspired Oxygen 04/18/23 15:26 Temperature 37.5 C Pulse Rate 85 Respiratory Rate 24 H Blood Pressure 126/59 L Pulse Oximetry 98 Oxygen Delivery Oxygen Flow Rate Fraction of Inspired Oxygen Intake/O
[2023-04-18] MEDS: oxyCODONE HCL (*CRX) 5 MG TAB IR 10 MG PO (17:09)
[2023-04-18] MEDS: traZODone HCL 50 MG TABLET 150 MG PO (21:57)
[2023-04-18] MEDS: CENTRAL LINE FLUSH 10 ML IV PUSH (21:57)
[2023-04-18] MEDS: ESCITALOPRAM OXALATE 5 MG TABLET 15 MG PO (21:57)
[2023-04-19] VITALS (17 sets, daily range): BP systolic 95–115; BP diastolic 43–55; PULSE 67–90; RESP 12–20; TEMP 36.1–36.7; O2SAT 93–100
[2023-04-19] MEDS: PIPERACILLN/TAZ 3.375GM/NS50ML 3.375 GM/50 ML BAG IVPB ×4 (00:25→18:00)
[2023-04-19] MEDS: oxyCODONE HCL (*CRX) 5 MG TAB IR 10 MG PO ×3 (00:27→17:03)
[2023-04-19] MEDS: CENTRAL LINE FLUSH 10 ML IV PUSH ×3 (05:56→21:00)
[2023-04-19 06:16] LABS: Basophils Absolute Auto 0.1 K/mm3 (0.0-0.1); Basophils Percent Auto 0.4 % (0.2-1.2); Eosinophils Absolute Auto 0.7 K/mm3 (0-0.3); Eosinophils Percent Auto 5.6 % (0-4.4); Hematocrit 28.7 % (42.0-52.0); Immature Granulocyte Absolute 0.15 K/mm3 (0.00-0.031); Immature Granulocyte Percent A 1.2 % (0-0.5); Lymphocytes Absolute Auto 1.85 K/mm3 (0.9-3.2); Lymphocytes Percent Auto 14.9 % (18.3-44.2); Mean Corpuscular HGB Conc 31.4 g/dl (32-36); Mean Corpuscular Hemoglobin 28.2 pg (26-34); Mean Platelet Volume 9.1 fl (7.4-10.4); Monocytes Absolute Auto 0.9 K/mm3 (0.1-0.6); Monocytes Percent Auto 7.6 % (2.6-8.5); Neutrophils Absolute Auto 8.7 K/mm3 (1.3-6.7); Neutrophils Percent Auto 70.3 % (45.5-73.1); Platelet Count Result 395 k/mm3 (150-375); Red Blood Count 3.19 M/mm3 (4.6-6.20); Red Cell Distribution Width 14.2 % (11.5-14.5); White Blood Count 12.4 K/mm3 (4.5-10.0)
[2023-04-19 06:25] LABS: Anion Gap 5 mmol/L (8-16); Blood Urea Nitrogen 9 mg/dL (9-20); Carbon Dioxide 30 mmol/L (22-30); Chloride 106 mmol/L (98-107); Estimated CRCL calculation 64 ml/min; Estimated Glomerular Filt Rate 56; Glucose 100 mg/dL (65-110); Potassium 3.4 mmol/L (3.4-5.0); Sodium 141 mmol/L (137-145)
[2023-04-19] MEDS: PREGABALIN (*CRX) 75 MG CAPSULE 150 MG PO ×2 (08:04→17:03)
[2023-04-19] MEDS: PARoxetine 10 MG TABLET 30 MG PO (08:04)
[2023-04-19] MEDS: ALPRAZolam (*CRX) 0.5 MG TABLET PO ×3 (08:04→20:59)
[2023-04-19] MEDS: THERAPEUTIC MULTIVITAMINS/MINERALS TAB (*BKC) 1 TABLET PO (08:04)
[2023-04-19] MEDS: ZINC SULFATE 220 MG CAPSULE PO (08:04)
--- NOTE | 2023-04-19 08:04 | PM.IMPN ---
Progress Note: A&P Assessment and Plan (1) Wound infection: Code(s): T14.8XXA - Other injury of unspecified body region, initial encounter; L08.9 - Local infection of the skin and subcutaneous tissue, unspecified Status: Acute (2) Acute UTI: Code(s): N39.0 - Urinary tract infection, site not specified Status: Acute (3) Sepsis: Code(s): A41.9 - Sepsis, unspecified organism Status: Acute Plan This is a 63-year-old male with past medical history significant for alcohol abuse, chronic kidney disease, chronic pain syndrome, with anxiety, gout sleep apnea on CPAP, peripheral neuropathy, urinary retention, chronic Durant catheter.? Patient was brought to the emergency room due to infected wound.? Patient is unable to provide much history he is lethargic and obtunded at the time of my visit.? Preliminary workup was significant for subcutaneous soft tissue gas in the buttock area Assessment and plan (1) Wound infection: ?Code(s): Sacral decubital ulcer Admit to regular medical floor Patient started on Zosyn and vancomycin General surgery consult for debridement Await cultures Appreciate general surgeon consultation. Status post sharps scalpel and scissor excisional debridement of skin and subcutaneous tissue from sacral decubitus ulcer wound 04/15/23. Wound culture grows Pseudomonas aeruginosa 04/15 General surgeon has planned for diverting colostomy today Bacteremia Blood culture 2023 grows Staphylococcus epidermidis, resistant to oxacillin Continue vancomycin Zosyn Repeat blood culture 04/17/23, no growth so far (2) Acute UTI: ?Code(s): N39.0 - Urinary tract infection, site not specified ?Status:?Acute ?Assessment and Plan: On vancomycin and Zosyn Urine culture no growth (3) Chronic venous stasis dermatitis of both lower extremities: ?Code(s): I87.2 - Venous insufficiency (chronic) (peripheral) ?Status:?Acute (4) Adult failure to thrive: ?Code(s): R62.7 - Adult failure to thrive ?Status:?Acute ?Assessment and Plan: Likely secondary to chronic illness (5) Wound of buttock: ?Qualifiers: ?Encounter type:?initial encounter??Laterality:?unspecified laterality? Qualified Code(s):?S31.809A - Unspecified open wound of unspecified buttock, initial encounter ?Code(s): S31.809A - Unspecified open wound of unspecified buttock, initial encounter ?Status:?Acute ?Assessment and Plan: Local care (6) Chronic pain syndrome: ?Code(s): G89.4 - Chronic pain syndrome ?Status:?Chronic ?Assessment and Plan: Resume home meds (7) YOSEPH (obstructive sleep apnea): ?Code(s): G47.33 - Obstructive sleep apnea (adult) (pediatric) ?Status:?Acute ?Assessment and Plan: Currently on oxygen by nasal cannula (8) Generalized muscle weakness: ?Code(s): M62.81 - Muscle weakness (generalized) ?Status:?Acute ?Assessment and Plan: Likely deconditioning secondary to chronic illness (9) Chronic kidney disease, stage 3: ?Code(s): N18.30 - Chronic kidney disease, stage 3 unspecified ?Status:?Chronic ?Assessment and Plan: Continue to monitor BUN and creatinine Acute respiratory failure Unclear etiologies, patient has a, tachypnea, patient is on 5 L oxygen ABG showed hypoxemic respiratory failure patient has tachycardia tachypnea Order CT of chest need to rule out PE 04/16: CTA shows no pulmonary embolism, small pleural effusion. Order echo 02/04 10 am: Patient developed respiratory distress, patient was noted choking, some fluid the cause from throat, stat ABG showed hypoxemic respiratory failure, chest x-ray shows left basilar opacity and small pleural effusion, suspecting atelectasis versus less likely pneumonia Provide Lasix 40 mg IV push, place patient on BiPAP Consult salvager for evaluation and treat 04/17 off bipap and on 2 L O2 Acute blood loss anemia 04/16/23 Hemoglobin 6.9, hemoglob
[2023-04-19] MEDS: ASCORBIC ACID 500 MG TABLET PO (08:05)
[2023-04-19] MEDS: FINASTERIDE 5 MG TABLET PO (08:05)
[2023-04-19] MEDS: SIMVASTATIN 20 MG TABLET PO (08:05)
[2023-04-19] MEDS: VANCOMYCIN 1,500 MG/NS 500 ML 1,500 MG/500 ML BAG 250 MG IVPB (08:26)
--- NOTE | 2023-04-19 10:25 | WPDANESEPPF ---
Anes - Initial Pre Proc Eval Procedure: Operation Date: 04/19/23 14:30 Proposed Procedures p Laparoscopic End Colostomy, Possible Open - Porfirio Brown MD Date/Time: 04/19/23 10:25 Surgeon: Jcarlos Mayfield MD Pre Op Diagnosis: UTI, Wound Infection, Wound to Buttock Patient Data Age: 63 Gender: M Height: 1.75 m Weight: 113.6 kg Last Vital Signs Temp 36.7 C 04/19/23 05:33 Pulse 77 04/19/23 05:33 Resp 18 04/19/23 05:33 BP 115/50 L 04/19/23 05:33 Pulse Ox 95 04/19/23 10:11 O2 Del Method Room Air 04/19/23 10:11 O2 Flow Rate 2 04/19/23 08:39 FiO2 40 04/18/23 08:00 Allergies Allergy/AdvReac Type Severity Reaction Status Date / Time allopurinol Allergy Unknown Rash Verified 04/14/23 22:10 carbamazepine Allergy Unknown Rash Verified 04/14/23 22:10 cyclobenzaprine Allergy Unknown Rash Verified 04/14/23 22:10 diclofenac Allergy Unknown Rash Verified 04/14/23 22:10 adhesive tape Allergy Rash Verified 04/14/23 22:10 Home Medications Medication Instructions Recorded Confirmed Type paroxetine HCl 30 mg tablet 30 mg PO DAILY 09/15/22 04/14/23 History simvastatin 20 mg tablet 20 mg PO DAILY 09/15/22 04/14/23 History trazodone 150 mg tablet 150 mg PO HS 09/15/22 04/14/23 History escitalopram oxalate 10 mg tablet 15 mg PO HS #30 tabs 12/29/22 04/14/23 Rx polyethylene glycol 3350 17 gram 17 g PO DAILY #30 ea 12/29/22 04/14/23 Rx oral powder packet (Miralax) pregabalin 75 mg capsule (Lyrica) 150 mg PO TID #30 caps 12/29/22 04/14/23 Rx tamsulosin 0.4 mg capsule 0.4 mg PO QHS #30 caps 12/29/22 04/14/23 Rx timolol maleate 0.5 % eye drops 1 drp EACH EYE QAM #1 mL 12/29/22 04/14/23 Rx amlodipine 5 mg tablet (Norvasc) 5 mg PO DAILY 04/04/23 04/14/23 History finasteride 5 mg tablet (Proscar) 5 mg PO QAM #30 tabs 04/08/23 04/14/23 Rx methocarbamol 750 mg tablet 1,500 mg PO TID PRN Bladder Spasms 04/08/23 04/14/23 Rx #30 tabs alprazolam 0.5 mg tablet 0.5 mg PO QID 04/14/23 04/14/23 History ascorbic acid (vitamin C) 500 mg 500 mg PO DAILY 04/14/23 04/14/23 History tablet collagenase clostridium histo. 250 1 applic topical DAILY 04/14/23 04/14/23 History unit/gram topical ointment (Santyl) ferrous sulfate 325 mg (65 mg 325 mg PO DAILY 04/14/23 04/14/23 History iron) tablet multivitamin with minerals 1 tablet PO DAILY 04/14/23 04/14/23 History (Multiple Vitamin-Minerals tablet) oxycodone 10 mg tablet 10 mg PO Q6H 04/14/23 04/14/23 History zinc sulfate 50 mg zinc (220 mg) 50 mg PO DAILY 04/14/23 04/14/23 History tablet Laboratory Tests 04/16/23 04/18/23 04/19/23 06:28 15:02 06:02 WBC 11.5 H K/mm3 12.4 H K/mm3 (4.5-10.0) (4.5-10.0) RBC 3.21 L M/mm3 3.19 L M/mm3 (4.6-6.20) (4.6-6.20) Hgb 9.0 L g/dL 9.0 L g/dL (14.0-18.0) (14.0-18.0) Hct 28.6 L % 28.7 L % (42.0-52.0) (42.0-52.0) MCV 89.1 fl 90.0 fl (80-100) (80-100) MCH 28.0 pg 28.2 pg (26-34) (26-34) MCHC 31.5 L g/dl 31.4 L g/dl (32-36) (32-36) RDW 14.0 % 14.2 % (11.5-14.5) (11.5-14.5) Plt Count 405 H k/mm3 395 H k/mm3 (150-375) (150-375) MPV 8.9 fl 9.1 fl (7.4-10.4) (7.4-10.4) Immature Gran % (Auto) 1.0 H % 1.2 H % (0-0.5) (0-0.5) Neut % (Auto) 73.4 H % 70.3 % (45.5-73.1) (45.5-73.1) Lymph % (Auto) 13.3 L % 14.9 L % (18.3-44.2) (18.3-44.2) Lares % (Auto) 7.0 % 7.6 % (2.6-8.5) (2.6-8.5) Eos % (Auto) 5.0 H % 5.6 H % (0-4.4) (0-4.4) Baso % (Auto) 0.3 % 0.4 % (0.2-1.2) (0.2-1.2) Lymph # (Auto) 1.53 K/mm3 1.85 K/mm3 (0.9-3.2) (0.9-3.2) Lares # (Auto) 0.8 H K/mm3 0.9 H K/mm3 (0.1-0.6) (0.1-0.6) Eos # (Auto) 0.6 H K/mm3 0.7 H K/mm3 (0-0.3) (0-0.3) Baso # (Auto) 0.0 K/mm3 0.1 K/mm3 (0.0-0.1) (0.0-0.1) Abs Immat Gran (auto) 0.12 H K/mm3 0.15 H K/mm3 (0.00-0.031) (0.00-0.031) Absolute Neuts (au
--- NOTE | 2023-04-19 11:05 | PCNFU ---
Nutrition Follow-Up Complete: Increased protein needs as related to wounds as evidenced by pressure ulcer reported. Goal: Adequate Intake of at least 75% of meals/supplements Patient is not meeting goal. We will continue current goal. Pt current nutrition is NPO. Last recorded weight is 113.6 kg, no weight changes. Bowel Motility: FMS Labs Reviewed:GFR 56 Meds Noted:Vit C, MVI, Lexapro, Zinc, Zosyn Skin: Bilateral Buttock-Stage III Additional Notes: Patient remains NPO. Getting colostomy today. Recommend diet advancing as tolerated with Venkatesh BID and Ensure Compact BID when medically able. RD will monitor weight, labs, skin, oral intake, meds every 3 days.
[2023-04-19] MEDS: LIDO 1%/EPINEPHRINE 1:100,000 50 ML VIAL 30 ML INFILTRATE (11:44)
--- NOTE | 2023-04-19 12:15 | PM.PNPUL ---
Progress Note: A&P Assessment and Plan (1) Acute respiratory failure with hypercapnia: Code(s): J96.02 - Acute respiratory failure with hypercapnia Status: Acute Assessment and Plan: 04/18/23: A 63-year-old male patient with a significant decubitus ulcer, who has undergone debridement and is scheduled for a colostomy, has tested positive for an RSV infection and experienced acute hypercapnic respiratory failure 2 days ago. His acute hypercapnia is likely due to the pain and other sedative medications administered for his severe pain. Initial blood gases on admission day indicated normal PCO2. Reportedly drowsy earlier, the patient has since awakened following treatment with noninvasive BiPAP ventilatory support. Remains fully awake on supplemental oxygen via nasal cannula off BiPAP for the last 24 hours. Last chest x-ray showed no new infiltrates. He has no evidence of chronic hypercapnia and as stated his most recent acute hypercapnia was related to opiate and other sedative medications for pain control. Plan: Continue to monitor respiratory status. BiPAP support if he becomes drowsy. 04/19/23: Patient tells me he has no shortness of breath at rest. He has less phlegm production. When I enter the room he is on 2 L with saturation 97%. I decreased him to room air and his saturations were 94%. White blood cell count 12.4, creatinine 1.30. Chest x-ray with minimal left lower lobe infiltrate with no change from 04/17/2023. Patient to have a diverting colostomy later today. Of note when the patient was admitted on 04/15/2023 is blood gas was 7.41/37/63 with a serum bicarbonate of 25. Plan: Patient should be monitored in the postoperative state for altered mental status and hypoxemia may require noninvasive ventilation post anesthesia. (2) RSV (respiratory syncytial virus infection): Code(s): B33.8 - Other specified viral diseases Status: Acute Assessment and Plan: RSV positive on 04/14/2023. 04/19/23: Currently the patient has no respiratory symptoms at rest. His chest x-ray with minimal infiltrates and no change compared to 04/17/2023. He is on room air with saturations 94%. Plan: No specific treatment for RSV is needed at this time. (3) YOSEPH (obstructive sleep apnea): Code(s): G47.33 - Obstructive sleep apnea (adult) (pediatric) Status: Acute Assessment and Plan: 04/18/23: The patient has a medical history of obstructive sleep apnea. Previous sleep study done in 01/2013 had shown severe obstructive sleep apnea with AHI of 96.6. Patient was successfully titrated to CPAP of 9 cm of water pressure. His BMI at the time of the sleep study was 42.8 kg per sq meter. The patient reported using CPAP support at home for several years, but has recently discontinued its use. His decision to stop using the CPAP device was driven by his belief that it is no longer necessary, particularly following his weight loss. Patient will definitely need reassessment for his sleep disordered breathing. On clinical grounds he does not have a symptoms suggestive of a uncontrolled sleep disordered breathing. He has no evidence of chronic hypercapnia and as stated his most recent acute hypercapnia was related to opiate and other sedative medications for pain control. 04/19/23: While the patient is in the hospital he can wear noninvasive ventilation at night if he should clinically needed. Plan: He will not be able to be discharged on noninvasive ventilation or CPAP until he has an outpatient sleep study. Follow-up in the Pulmonary Clinic in 3-4 weeks post discharge. I gave him our business card and informed our mothers helper, Discussed with Dr. Sanches, will sign off, call with questions Subjective Date/time seen: 04/19/23 12:15 Interval history: Consult date: 04/16/23 Chief complaint: UTI, Wound Infection, Wound to Buttock Narrative: This 63-year-old male patient was admitted to the hospital two days
[2023-04-19] MEDS: LACTATED RINGERS 1,000 ML 30 ML IV CONT ×2 (13:49)
--- NOTE | 2023-04-19 14:05 | W.PM.PROC2 ---
Procedure Note - Detailed Date of Procedure 04/19/23 Pre-op Diagnosis UTI, Wound Infection, Wound to Buttock Post-op Diagnosis Same Procedure Performed Laparoscopic descending end diverting colostomy placement. Surgeon Porfirio Brown MD Environmental Director Lynette Arredondo [facility] Anesthesia General Indications Patient is a 63-year-old gentleman who has a very large stage IV sacral decubitus wound which has been debrided but due to having bowel movements continues to contaminate the wound with fecal material. He presents now for placement of a diverting end colostomy laparoscopic approach to divert his fecal stream. Findings Patient along redundant descending and sigmoid colon. The colostomy was placed at the marked site noted by the ostomy nurses. Description of Procedure After informed consent was obtained patient brought to the operating room was placed supine position and then general endotracheal anesthesia was administered. The abdomen was then prepped and draped usual sterile fashion. Time-out was then performed correctly identifying the patient as well as procedure to be performed. He was already on scheduled IV antibiotics. I 1st entered the abdomen left upper quadrant utilizing a 5mm Optiview port. Once inside the abdomen insufflated to adequate pneumoperitoneum of 15mmHg CO2. Upon evaluation of the abdomen there were some omental adhesions to the periumbilical region additional laparoscopic trocar ports were then placed in the left side of the abdomen to take down these omental adhesions which was done easily with a LigaSure energy device. I then placed a 12mm umbilical trocar port and additional 5mm left lateral abdominal trocar port and then looked at the sigmoid and descending left colon. Patient had a very redundant descending and sigmoid colon. I made sure that I knew which portion was continuing to descend into the pelvis and to the rectum and proceeded to mobilize the descending left colon laparoscopically. Laparoscopic instruments were then used to retract the descending colon medially and then the lateral peritoneal reflection on the left side was divided utilizing the LigaSure energy device. The descending colon easily mobilized to the midline. The splenic flexure was not mobilized. The colon at the junction of the descending left colon and sigmoid colon easily reached the site on the left lower quadrant abdominal wall which was marked by the ostomy nurses. At this point I then made a defect through the mesentery at the junction of the descending left colon and the sigmoid colon utilizing the LigaSure energy device. A 60mm echelon laparoscopic stapler was then used to divide the colon at the junction of the descending colon and sigmoid colon. The proximal end of the sigmoid colon was then tacked to the quadrant abdominal wall utilizing a 3-0 silk suture placed laparoscopically. This would make it easier to take down the colostomy the future if that can be done and keeping the end of the sigmoid colon out of the pelvis. The proximal descending and of the colon was then with a laparoscopic grasper. I then proceeded to make sure that there was no bleeding from the mesentery and it was hemostatic. I then proceeded to remove the trocar ports under visualization all port sites appeared hemostatic. I then allowed the abdomen decompressed. The 12mm periumbilical trocar port fascial defect was then closed utilizing 0 Vicryl suture placed in a figure-eight fashion. All the port sites were then closed the skin level utilizing a running subcuticular 4 Monocryl suture and then was dressed with skin glue. I then proceeded to create the colostomy. The marked site on the left lower quadrant skin I then resected off a 3cm circular portion of the skin utilizing scalpel then utilizing electrocautery dissected down through the subcutaneous tissues until reaching anterior rectus fascia I then incised the anterior rectus fascia longitudinally with electrocauter
--- NOTE | 2023-04-19 14:22 | SUR.PHASEI ---
pt on 2liters of O2. pt states no pain at this time. vitals are stable and report called to RN on floor. taking pt from or room8 (pt recovered in or8) to room 242 at this time.
[2023-04-19] MEDS: MORPHINE SULFATE (*CRX) 4 MG/ML INJ IV PUSH (17:38)
--- NOTE | 2023-04-19 20:53 | PC.NURSE ---
Patient rectal tube order D/C however rectal tube is still in place, given extensive buttocks and rectal tissue affected by pressure ulcer oriental medicine practitioner surgery was called to confirm whether to remove or continue tube. Dr Lee confirmed it is ok to leave in rectal tube at this time as long as patient continues to tolerate it, until Dr. Brown assesses patient in the morning to provide clarification of order.
[2023-04-19] MEDS: ESCITALOPRAM OXALATE 5 MG TABLET 15 MG PO (20:59)
[2023-04-19] MEDS: traZODone HCL 50 MG TABLET 150 MG PO (20:59)
[2023-04-20] VITALS (11 sets, daily range): BP systolic 99–134; BP diastolic 40–64; PULSE 64–83; RESP 16–18; TEMP 36.1–36.6; O2SAT 93–95
[2023-04-20] MEDS: PIPERACILLN/TAZ 3.375GM/NS50ML 3.375 GM/50 ML BAG IVPB ×4 (00:22→18:04)
[2023-04-20] MEDS: oxyCODONE HCL (*CRX) 5 MG TAB IR 10 MG PO ×4 (00:27→17:58)
[2023-04-20] MEDS: CENTRAL LINE FLUSH 10 ML IV PUSH ×3 (05:53→21:40)
[2023-04-20 06:06] LABS: Basophils Percent Auto 0.2 % (0.2-1.2); Hematocrit 30.4 % (42.0-52.0); Hemoglobin 9.8 g/dL (14.0-18.0); Immature Granulocyte Absolute 0.14 K/mm3 (0.00-0.031); Immature Granulocyte Percent A 1.1 % (0-0.5); Lymphocytes Absolute Auto 0.97 K/mm3 (0.9-3.2); Lymphocytes Percent Auto 7.4 % (18.3-44.2); Mean Corpuscular HGB Conc 32.2 g/dl (32-36); Mean Corpuscular Hemoglobin 28.2 pg (26-34); Mean Corpuscular Volume 87.6 fl (80-100); Mean Platelet Volume 8.8 fl (7.4-10.4); Monocytes Absolute Auto 0.6 K/mm3 (0.1-0.6); Monocytes Percent Auto 4.4 % (2.6-8.5); Neutrophils Absolute Auto 11.4 K/mm3 (1.3-6.7); Neutrophils Percent Auto 86.9 % (45.5-73.1); Platelet Count Result 446 k/mm3 (150-375); Red Blood Count 3.47 M/mm3 (4.6-6.20); White Blood Count 13.1 K/mm3 (4.5-10.0)
[2023-04-20 06:21] LABS: Anion Gap 8 mmol/L (8-16); Blood Urea Nitrogen 10 mg/dL (9-20); Calcium 7.2 mg/dL (8.4-10.2); Carbon Dioxide 28 mmol/L (22-30); Chloride 105 mmol/L (98-107); Estimated CRCL calculation 82 ml/min; Estimated Glomerular Filt Rate > 60; Glucose 128 mg/dL (65-110); Potassium 3.8 mmol/L (3.4-5.0); Sodium 141 mmol/L (137-145)
--- NOTE | 2023-04-20 08:52 | P.PNAN_ITS ---
Anes - Prog Note Post-Op Date/Time: 04/20/23 08:52 Cardiovascular status: normal Respiratory status: normal Airway patency: baseline Mental status: baseline Post-Op hydration status: normal Vital Signs: Last Vital Signs Temp 36.3 C L 04/20/23 07:43 Pulse 72 04/20/23 07:43 Resp 16 04/20/23 07:43 BP 134/64 04/20/23 07:43 Pulse Ox 95 04/20/23 07:43 O2 Del Method Nasal Cannula 04/19/23 21:05 O2 Flow Rate 2 04/19/23 21:05 FiO2 40 04/18/23 08:00 Pain Score (VAS): 05/08 I/O: Intake & Output 04/19/23 04/20/23 04/20/23 23:59 07:59 15:59 Intake Total 50 440 Output Total 1800 1200 Balance -1750 -760 Laboratory Tests 04/20/23 05:59 04/20/23 05:59 04/20/23 05:59 WBC 13.1 H RBC 3.47 L Hgb 9.8 L Hct 30.4 L MCV 87.6 MCH 28.2 MCHC 32.2 RDW 14.0 Plt Count 446 H MPV 8.8 Immature Gran % (Auto) 1.1 H Neut % (Auto) 86.9 H Lymph % (Auto) 7.4 L [place] % (Auto) 4.4 Eos % (Auto) 0.0 Baso % (Auto) 0.2 Lymph # (Auto) 0.97 [place] # (Auto) 0.6 Eos # (Auto) 0.0 Baso # (Auto) 0.0 Abs Immat Gran (auto) 0.14 H Absolute Neuts (auto) 11.4 H Absolute Nucleated RBC 0.0 Nucleated RBC % 0.0 Sodium 141 Potassium 3.8 Chloride 105 Carbon Dioxide 28 Anion Gap 8 BUN 10 Creatinine 1.00 Estim Creat Clear Calc 82 Estimated GFR > 60 Glucose 128 H Calcium 7.2 L Microbiology 04/14/23 16:04 Blood Blood Culture - Final 04/15/23 15:13 Sacral Anaerobic Culture - Preliminary Bacteroides fragilis group 04/15/23 15:13 Sacral Aerobic Culture - Preliminary Pseudomonas aeruginosa Post-procedural complaints: none Patient Feedback: Patient satisfied with anesthetic care.
[2023-04-20] MEDS: PREGABALIN (*CRX) 75 MG CAPSULE 150 MG PO ×3 (09:08→17:58)
[2023-04-20] MEDS: ASCORBIC ACID 500 MG TABLET PO (09:08)
[2023-04-20] MEDS: ZINC SULFATE 220 MG CAPSULE PO (09:08)
[2023-04-20] MEDS: THERAPEUTIC MULTIVITAMINS/MINERALS TAB (*BKC) 1 TABLET PO (09:08)
[2023-04-20] MEDS: FINASTERIDE 5 MG TABLET PO (09:08)
[2023-04-20] MEDS: SIMVASTATIN 20 MG TABLET PO (09:08)
[2023-04-20] MEDS: ALPRAZolam (*CRX) 0.5 MG TABLET PO ×4 (09:08→21:40)
[2023-04-20] MEDS: PARoxetine 10 MG TABLET 30 MG PO (09:09)
[2023-04-20] MEDS: FERROUS SULFATE 325 MG TABLET DR PO (11:48)
--- NOTE | 2023-04-20 11:49 | PM.IMPN ---
Progress Note: A&P Assessment and Plan (1) Wound infection: Code(s): T14.8XXA - Other injury of unspecified body region, initial encounter; L08.9 - Local infection of the skin and subcutaneous tissue, unspecified Status: Acute (2) Acute UTI: Code(s): N39.0 - Urinary tract infection, site not specified Status: Acute (3) Sepsis: Code(s): A41.9 - Sepsis, unspecified organism Status: Acute Plan Assessment and plan (1) Wound infection: ?Code(s): Sacral decubital ulcer Admit to regular medical floor Patient started on Zosyn and vancomycin General surgery consult for debridement completed once with diverting colostomy Second debridement scheduled for tomorrow Appreciate general surgeon consultation. Status post sharps scalpel and scissor excisional debridement of skin and subcutaneous tissue from sacral decubitus ulcer wound 04/15/23. Wound culture grows Pseudomonas aeruginosa 04/15 Bacteremia Blood culture 2023 grows Staphylococcus epidermidis, resistant to oxacillin Continue Zosyn, vancomycin was stopped Repeat blood culture 04/17/23, no growth so far (2) Acute UTI: ?Code(s): N39.0 - Urinary tract infection, site not specified ?Status:?Acute ?Assessment and Plan: On Zosyn, vancomycin was stopped Urine culture no growth (3) Chronic venous stasis dermatitis of both lower extremities: ?Code(s): I87.2 - Venous insufficiency (chronic) (peripheral) ?Status:?Acute (4) Adult failure to thrive: ?Code(s): R62.7 - Adult failure to thrive ?Status:?Acute ?Assessment and Plan: Likely secondary to chronic illness (5) Wound of buttock: ?Qualifiers: ?Encounter type:?initial encounter??Laterality:?unspecified laterality? Qualified Code(s):?S31.809A - Unspecified open wound of unspecified buttock, initial encounter ?Code(s): S31.809A - Unspecified open wound of unspecified buttock, initial encounter ?Status:?Acute ?Assessment and Plan: Local care (6) Chronic pain syndrome: ?Code(s): G89.4 - Chronic pain syndrome ?Status:?Chronic ?Assessment and Plan: Resume home meds (7) YOSEPH (obstructive sleep apnea): ?Code(s): G47.33 - Obstructive sleep apnea (adult) (pediatric) ?Status:?Acute ?Assessment and Plan: Currently on oxygen by nasal cannula (8) Generalized muscle weakness: ?Code(s): M62.81 - Muscle weakness (generalized) ?Status:?Acute ?Assessment and Plan: Likely deconditioning secondary to chronic illness (9) Chronic kidney disease, stage 3: ?Code(s): N18.30 - Chronic kidney disease, stage 3 unspecified ?Status:?Chronic ?Assessment and Plan: Continue to monitor BUN and creatinine Acute respiratory failure Unclear etiologies, patient has a, tachypnea, patient is on 5 L oxygen ABG showed hypoxemic respiratory failure patient has tachycardia tachypnea Order CT of chest need to rule out PE 04/16: CTA shows no pulmonary embolism, small pleural effusion. Order echo 02/04 10 am: Patient developed respiratory distress, patient was noted choking, some fluid the cause from throat, stat ABG showed hypoxemic respiratory failure, chest x-ray shows left basilar opacity and small pleural effusion, suspecting atelectasis versus less likely pneumonia 04/20/2023: Pt found to have RSV but appears asymptomatic today no specfic complaints Acute blood loss anemia 04/16/23 Hemoglobin 6.9, hemoglobin 9.9 on arrival in the ED 04/14, patient underwent debridement of sacral decubitus ulcer on April 15, repeated HB, on hold 2 pack RBC 04/18: hb 6.9 transfuse RBC 04/19: Hemoglobin stable 9.0 in past 2 days 04/20: hb is 9.8 stable presently BOAZ on CKD 04/16. Cr 1.5 04/20: Cr is 1 Essential hypertension Bp staying soft at 99/40 hold bp medications restart fluids Patient wishes DNR DNI code, code status was discussed with the patient in presents of patient's nurse and patient's mother at b
[2023-04-20] MEDS: TIMOLOL MALEATE 0.5% OP SOLN 5 ML BOTTLE 1 DROP EACH EYE (11:50)
[2023-04-20] MEDS: SODIUM CHLORIDE 0.9% IV 250 ML 70 ML IV CONT (12:45)
--- NOTE | 2023-04-20 12:52 | PM.PNGS ---
Progress Note: A&P Assessment and Plan (1) Decubitus ulcer of sacral region, unstageable: Code(s): L89.150 - Pressure ulcer of sacral region, unstageable Status: Acute Assessment and Plan: S/p diverting end colostomy. Sacral wound appears stable and no purulent drainage. There has been some stool contamination of the wound even with the rectal tube. Will leave the rectal tube in place another day since they are still having some liquid stool coming out, but hopefully this will slow down in the next day or so. We would recommend to continue Dakin's soaked gauze dressing changes, and he will likely need to return to the OR in the next 1-2 days for additional debridement to clean up the wound. Discussed the case with the wound care nurses today. Now that he has stool diversion with the ostomy and will have another debridement in the next few days, we could consider applying a wound vac if it seems appropriate following debridement. (2) Colostomy care: Code(s): Z43.3 - Encounter for attention to colostomy Status: Acute Assessment and Plan: Colostomy without much output yet, but stoma is viable. Wound/ostomy nurses consulted again for education/ostomy care. They are going to resize the opening to the ostomy appliance as there is some edema of the stoma. Plan I have discussed the patient's case and plan of care with Dr. Brown. Subjective Subjective Date/Time Seen: 04/20/23 12:52 Interval history: 04/15 - Sharp excisional debridement of skin and subcutaneous tissue from sacral decubitus ulcer wound 04/19 - Laparoscopic descending end diverting colostomy placement Patient seen with the wound care nurse. He reports some incisional pain near the colostomy and pain at his sacral wound. No other complaints at this time. Not much out of ostomy yet. FMS still in place per nursing still had a small amount of liquid stool out of the rectal tube. Exam Const: General: comfortable and no acute distress Orientation/consciousness: patient oriented x3 GI: Inspection: non-distended and incision (dry and healing well) GI Palp: Yes Soft to palpation, No Tenderness to palpation present (GI) and No Guarding due to palpation present (GI) Auscultation: normal bowel sounds Other: Left end descending colostomy with stoma slightly edematous but pink and viable, only scant amount of green/brown liquid stool in bottom of the bag. Urinary Catheter: Urinary Catheter: patent and draining Skin: Other: Sacral decubitus ulcer with some small areas of granulating tissue on the edge of the wound on the right buttock and more on the wound on the left buttock, there is an area of dark collins dry slough and stool staining on the tissue mostly on the right side of the wound, no purulent drainage, no crepitus, no odor. Objective Data Vital Signs Vital Signs: Vital Signs - 24 hr 04/19/23 13:49 04/19/23 14:00 04/19/23 14:15 Temperature 98.1 F Pulse Rate 90 83 80 Respiratory Rate 12 12 12 Blood Pressure 104/53 L 95/53 L 106/54 L Pulse Oximetry 98 96 95 Oxygen Delivery Simple Face Mask Simple Face Mask Nasal Cannula Oxygen Flow Rate 10 10 2 04/19/23 14:22 04/19/23 15:48 04/19/23 15:56 Temperature 97.7 F 97.3 F L Pulse Rate 80 75 73 Respiratory Rate 12 20 20 Blood Pressure 103/54 L 100/43 L 102/46 L Pulse Oximetry 95 95 96 Oxygen Delivery Nasal Cannula Oxygen Flow Rate 2 04/19/23 16:00 04/19/23 20:31 04/19/23 21:05 Temperature 97 F L Pulse Rate 72 73 Respiratory Rate 20 Blood Pressure 113/55 L Pulse Oximetry 93 94 Oxygen Delivery Nasal Cannula Oxygen Flow Rate 2 04/20/23 03:12 04/19/23 20:00 04/19/23 20:00 Temperature 96.9 F L Pulse Rate 64 73 Respiratory Rate 18 Blood Pressure 131/58 L Pulse Oximetry 94 Oxygen Delivery Room Air Oxygen Flow Rate 04/20/23 00:00 04/20/23 04:00 04/20/23 07:43 Temperature 97.3 F L Pulse Rate 69 68 72 Respiratory Rate 16 Blo
[2023-04-20] MEDS: traZODone HCL 50 MG TABLET 150 MG PO (21:39)
[2023-04-20] MEDS: ESCITALOPRAM OXALATE 5 MG TABLET 15 MG PO (21:40)
[2023-04-21] VITALS (9 sets, daily range): BP systolic 108–135; BP diastolic 47–71; PULSE 70–89; RESP 16–18; TEMP 36–37.2; O2SAT 91–92
[2023-04-21] MEDS: oxyCODONE HCL (*CRX) 5 MG TAB IR 10 MG PO ×4 (00:45→18:20)
[2023-04-21] MEDS: PIPERACILLN/TAZ 3.375GM/NS50ML 3.375 GM/50 ML BAG IVPB ×4 (00:45→18:20)
[2023-04-21] MEDS: CENTRAL LINE FLUSH 10 ML IV PUSH ×3 (05:34→21:04)
[2023-04-21] MEDS: ALPRAZolam (*CRX) 0.5 MG TABLET PO ×4 (09:11→21:09)
--- NOTE | 2023-04-21 09:12 | PC.NURSE ---
pt NPO for possible surgery today, xanax administered as ordered per pt request with one small sip of water, will hold other a.m meds at this time
--- NOTE | 2023-04-21 10:02 | PM.PNGS ---
Progress Note: A&P Assessment and Plan (1) Decubitus ulcer of sacral region, unstageable: Code(s): L89.150 - Pressure ulcer of sacral region, unstageable Status: Acute Assessment and Plan: S/p diverting end colostomy. He will need debridement of his sacral decubitus ulcer to help clean up the wound and possibly place a wound vac. Discussed this with the patient including the procedure, risks, benefits, alternatives, and expected wound care. He agrees to proceed and we will add him onto the surgery schedule tomorrow. Will make him NPO after midnight. I have also discussed this with the wound care nurses who will help manage the wound vac postoperatively. Continue antibiotics. He also has not had any output from the rectal tube in the past 24 hours, so we will remove that today. (2) Colostomy care: Code(s): Z43.3 - Encounter for attention to colostomy Status: Acute Assessment and Plan: Colostomy functioning well today. Continue regular diet. Plan I have discussed the patient's case and plan of care with Dr. Brown. Subjective Subjective Date/Time Seen: 04/21/23 10:02 Patient reports: no new complaints and afebrile Interval history: Patient denies any new complaints. He told me he tolerated his diet yesterday, but per nursing he only took in fluids and his Ensure supplements but did not eat much. He denies nausea or vomiting. Ostomy functioning better today with stool and gas in the bag this morning. Exam Const: General: comfortable and no acute distress Orientation/consciousness: patient oriented x3 GI: Inspection: non-distended GI Palp: Yes Soft to palpation, Yes Tenderness to palpation present (GI) (appropriate tenderness near incisions) and No Guarding due to palpation present (GI) Auscultation: normal bowel sounds Other: Left sided colostomy with stool and gas in the bag, stoma pink and slightly edematous but viable. Sacral wound dressing intact Objective Data Vital Signs Vital Signs: Vital Signs - 24 hr 04/20/23 11:34 04/20/23 12:00 04/20/23 15:19 Temperature 97.8 F 97.5 F L Pulse Rate 80 83 69 Respiratory Rate 16 16 Blood Pressure 99/40 L 114/54 L Pulse Oximetry 94 93 Oxygen Delivery 04/20/23 16:00 04/20/23 20:50 04/20/23 20:00 Temperature 97.9 F Pulse Rate 77 71 Respiratory Rate 18 Blood Pressure 115/59 L Pulse Oximetry 94 Oxygen Delivery Room Air 04/21/23 03:16 04/20/23 20:00 04/21/23 00:00 Temperature 96.8 F L Pulse Rate 71 79 70 Respiratory Rate 18 Blood Pressure 135/71 Pulse Oximetry 92 Oxygen Delivery 04/21/23 04:00 Temperature Pulse Rate 72 Respiratory Rate Blood Pressure Pulse Oximetry Oxygen Delivery Intake/Output Intake/Output: Intake & Output 04/18/23 04/19/23 04/20/23 04/21/23 23:59 23:59 23:59 23:59 Intake Total 2230 1100 1710 340 Output Total 2400 3000 2400 2150 Balance -170 -1900 -690 -1810 Meds/Results Medications: Active Medications Generic Name Dose Route Start Last Admin Trade Name Freq PRN Reason Stop Dose Admin Hydrocodone Bitart/Acetaminophen 1 tab 04/20/23 12:13 Hydrocodone/Acetaminophen (*Crx) 5-325 Mg Tablet PO Q4H PRN Pain Rated 4-6 Albuterol 2.5 mg 04/17/23 11:23 Albuterol Sulfate Neb 2.5 Mg/3 Ml Inh INHALATION Q6HRT PRN Shortness Of Breath Alprazolam 0.5 mg 04/15/23 09:00 04/21/23 09:11 Alprazolam (*Crx) 0.5 Mg Tablet PO 0.5 mg QID ANNE Administration Ascorbic Acid 500 mg 04/15/23 09:00 04/20/23 09:08 Ascorbic Acid 500 Mg Tablet PO 500 mg DAILY ANNE Administration Escitalopram Oxalate 15 mg 04/15/23 21:00 04/20/23 21:40 Escitalopram Oxalate 5 Mg Tablet PO 15 mg HS ANNE Administration Ferrous Sulfate 325 mg 04/15/23 12:00 04/20/23 11:48 Ferrous Sulfate [address] PO 325 mg DAILY@1200 ANNE Administration Finasteride 5 mg 04/15/23 09:00 04/20/23 09:08 Finasteride 5 Mg
--- NOTE | 2023-04-21 10:50 | PC.NURSE ---
orders changed, food order placed for pt will administer meds with tray
[2023-04-21] MEDS: PREGABALIN (*CRX) 75 MG CAPSULE 150 MG PO ×2 (13:21→18:20)
[2023-04-21] MEDS: PARoxetine 10 MG TABLET 30 MG PO (13:22)
[2023-04-21] MEDS: ZINC SULFATE 220 MG CAPSULE PO (13:22)
[2023-04-21] MEDS: FERROUS SULFATE 325 MG TABLET DR PO (13:22)
[2023-04-21] MEDS: SIMVASTATIN 20 MG TABLET PO (13:22)
[2023-04-21] MEDS: ASCORBIC ACID 500 MG TABLET PO (13:22)
[2023-04-21] MEDS: THERAPEUTIC MULTIVITAMINS/MINERALS TAB (*BKC) 1 TABLET PO (13:22)
[2023-04-21] MEDS: FINASTERIDE 5 MG TABLET PO (13:22)
[2023-04-21] MEDS: TIMOLOL MALEATE 0.5% OP SOLN 5 ML BOTTLE 1 DROP EACH EYE (13:23)
--- NOTE | 2023-04-21 14:18 | PM.IMPN ---
Progress Note: A&P Assessment and Plan (1) Wound infection: Code(s): T14.8XXA - Other injury of unspecified body region, initial encounter; L08.9 - Local infection of the skin and subcutaneous tissue, unspecified Status: Acute (2) Acute UTI: Code(s): N39.0 - Urinary tract infection, site not specified Status: Acute (3) Sepsis: Code(s): A41.9 - Sepsis, unspecified organism Status: Acute Plan Assessment and plan (1) Wound infection: ?Code(s): Sacral decubital ulcer Admit to regular medical floor Patient started on Zosyn and vancomycin General surgery consult for debridement completed once with diverting colostomy Second debridement scheduled soon Appreciate general surgeon consultation. Status post sharps scalpel and scissor excisional debridement of skin and subcutaneous tissue from sacral decubitus ulcer wound 04/15/23. Wound culture grows Pseudomonas aeruginosa 04/15 S/p diverting end colostomy Colostomy working well Bacteremia Blood culture 2023 grows Staphylococcus epidermidis, resistant to oxacillin Continue Zosyn, vancomycin was stopped Repeat blood culture 04/17/23, no growth so far (2) Acute UTI: ?Code(s): N39.0 - Urinary tract infection, site not specified ?Status:?Acute ?Assessment and Plan: On Zosyn, vancomycin was stopped Urine culture no growth (3) Chronic venous stasis dermatitis of both lower extremities: ?Code(s): I87.2 - Venous insufficiency (chronic) (peripheral) ?Status:?Acute (4) Adult failure to thrive: ?Code(s): R62.7 - Adult failure to thrive ?Status:?Acute ?Assessment and Plan: Likely secondary to chronic illness (5) Wound of buttock: ?Qualifiers: ?Encounter type:?initial encounter??Laterality:?unspecified laterality? Qualified Code(s):?S31.809A - Unspecified open wound of unspecified buttock, initial encounter ?Code(s): S31.809A - Unspecified open wound of unspecified buttock, initial encounter ?Status:?Acute ?Assessment and Plan: Local care (6) Chronic pain syndrome: ?Code(s): G89.4 - Chronic pain syndrome ?Status:?Chronic ?Assessment and Plan: Resume home meds (7) YOSEPH (obstructive sleep apnea): ?Code(s): G47.33 - Obstructive sleep apnea (adult) (pediatric) ?Status:?Acute ?Assessment and Plan: Currently on oxygen by nasal cannula (8) Generalized muscle weakness: ?Code(s): M62.81 - Muscle weakness (generalized) ?Status:?Acute ?Assessment and Plan: Likely deconditioning secondary to chronic illness (9) Chronic kidney disease, stage 3: ?Code(s): N18.30 - Chronic kidney disease, stage 3 unspecified ?Status:?Chronic ?Assessment and Plan: Continue to monitor BUN and creatinine Acute respiratory failure Unclear etiologies, patient has a, tachypnea, patient is on 5 L oxygen ABG showed hypoxemic respiratory failure patient has tachycardia tachypnea Order CT of chest need to rule out PE 04/16: CTA shows no pulmonary embolism, small pleural effusion. Order echo 02/04 10 am: Patient developed respiratory distress, patient was noted choking, some fluid the cause from throat, stat ABG showed hypoxemic respiratory failure, chest x-ray shows left basilar opacity and small pleural effusion, suspecting atelectasis versus less likely pneumonia 04/20/2023: Pt found to have RSV but appears asymptomatic today no specific complaints 04/21/2023:no specific complaints Acute blood loss anemia 04/16/23 Hemoglobin 6.9, hemoglobin 9.9 on arrival in the ED 04/14, patient underwent debridement of sacral decubitus ulcer on April 15, repeated HB, on hold 2 pack RBC 04/18: hb 6.9 transfuse RBC 04/19: Hemoglobin stable 9.0 in past 2 days 04/20: hb is 9.8 stable presently BOAZ on CKD 04/16. Cr 1.5 04/20: Cr is 1 Essential hypertension Bp staying soft at 99/40 hold bp medications restart fluids Patient wishes DNR DNI code, code status was
[2023-04-21] MEDS: HYDROcodone/acetaminophen (*CRX) 5-325 MG TABLET 1 TAB PO (21:07)
[2023-04-21] MEDS: traZODone HCL 50 MG TABLET 150 MG PO (21:08)
[2023-04-21] MEDS: ESCITALOPRAM OXALATE 5 MG TABLET 15 MG PO (21:08)
[2023-04-22] VITALS (18 sets, daily range): BP systolic 99–181; BP diastolic 51–97; PULSE 69–80; RESP 14–20; TEMP 36.1–36.8; O2SAT 93–100
[2023-04-22] MEDS: oxyCODONE HCL (*CRX) 5 MG TAB IR 10 MG PO ×3 (00:02→18:33)
[2023-04-22] MEDS: PIPERACILLN/TAZ 3.375GM/NS50ML 3.375 GM/50 ML BAG IVPB ×4 (00:02→18:33)
[2023-04-22] MEDS: CENTRAL LINE FLUSH 10 ML IV PUSH ×3 (06:10→20:01)
[2023-04-22 06:14] LABS: Hemoglobin 9.3 g/dL (14.0-18.0); Mean Corpuscular Hemoglobin 28.2 pg (26-34); Mean Corpuscular Volume 90.9 fl (80-100); Mean Platelet Volume 8.7 fl (7.4-10.4); Platelet Count Result 424 k/mm3 (150-375); Red Cell Distribution Width 14.5 % (11.5-14.5); White Blood Count 12.6 K/mm3 (4.5-10.0)
[2023-04-22 06:28] LABS: Anion Gap 2 mmol/L (8-16); Blood Urea Nitrogen 13 mg/dL (9-20); Calcium 7.6 mg/dL (8.4-10.2); Carbon Dioxide 34 mmol/L (22-30); Chloride 106 mmol/L (98-107); Estimated CRCL calculation 69 ml/min; Estimated Glomerular Filt Rate > 60; Glucose 90 mg/dL (65-110); Potassium 3.3 mmol/L (3.4-5.0); Sodium 142 mmol/L (137-145)
[2023-04-22] MEDS: PARoxetine 10 MG TABLET 30 MG PO (08:46)
[2023-04-22] MEDS: PREGABALIN (*CRX) 75 MG CAPSULE 150 MG PO ×3 (08:46→18:33)
[2023-04-22] MEDS: ALPRAZolam (*CRX) 0.5 MG TABLET PO ×3 (08:47→18:33)
[2023-04-22] MEDS: TIMOLOL MALEATE 0.5% OP SOLN 5 ML BOTTLE 1 DROP EACH EYE (08:48)
--- NOTE | 2023-04-22 09:22 | PCNFU ---
Nutrition Follow-Up Complete: Increased protein needs as related to wounds as evidenced by pressure ulcer reported. Goal:Adequate Intake of at least 75% of meals/supplements Pt was meeting goal, is NPO today Pt current nutrition is NPO for debridment and wound vac placement. Was on a Heart healthy diet, Ensure compact and SHAYNA BID. Nutrition recommendation: Resume diet when appropriate, resume supplements for wound healing Last recorded weight is 113.6 kg. Bowel Motility: +BM 04/21 Labs Reviewed: Hgb:9.3, HCT:30, K:3.3 Meds Noted: MVI, Vit C Skin: Stage IV to sacrum Additional Notes: Pt was on a heart healthy diet, intake 50-100% plus supplements as recommended. NPO today for wound vac. Recommend to resume diet and supplements of Ensure compact and SHAYNA BID for wound healing as soon as appropriate. RD will monitor weight, labs, skin, oral intake, meds every 5 days.
--- NOTE | 2023-04-22 12:11 | PM.IMPN ---
Progress Note: A&P Assessment and Plan (1) Wound infection: Code(s): T14.8XXA - Other injury of unspecified body region, initial encounter; L08.9 - Local infection of the skin and subcutaneous tissue, unspecified Status: Acute (2) Acute UTI: Code(s): N39.0 - Urinary tract infection, site not specified Status: Acute (3) Sepsis: Code(s): A41.9 - Sepsis, unspecified organism Status: Acute Plan Assessment and plan (1) Wound infection: ?Code(s): Sacral decubital ulcer Admit to regular medical floor Patient started on Zosyn and vancomycin General surgery consult for debridement completed once with diverting colostomy Second debridement scheduled soon Appreciate general surgeon consultation. Status post sharps scalpel and scissor excisional debridement of skin and subcutaneous tissue from sacral decubitus ulcer wound 04/15/23. Wound culture grows Pseudomonas aeruginosa 04/15 S/p diverting end colostomy Colostomy working well Bacteremia Blood culture 2023 grows Staphylococcus epidermidis, resistant to oxacillin Continue Zosyn, vancomycin was stopped Repeat blood culture 04/17/23, no growth so far (2) Acute UTI: ?Code(s): N39.0 - Urinary tract infection, site not specified ?Status:?Acute ?Assessment and Plan: On Zosyn, vancomycin was stopped Urine culture no growth (3) Chronic venous stasis dermatitis of both lower extremities: ?Code(s): I87.2 - Venous insufficiency (chronic) (peripheral) ?Status:?Acute (4) Adult failure to thrive: ?Code(s): R62.7 - Adult failure to thrive ?Status:?Acute ?Assessment and Plan: Likely secondary to chronic illness (5) Wound of buttock: ?Qualifiers: ?Encounter type:?initial encounter??Laterality:?unspecified laterality? Qualified Code(s):?S31.809A - Unspecified open wound of unspecified buttock, initial encounter ?Code(s): S31.809A - Unspecified open wound of unspecified buttock, initial encounter ?Status:?Acute ?Assessment and Plan: Local care (6) Chronic pain syndrome: ?Code(s): G89.4 - Chronic pain syndrome ?Status:?Chronic ?Assessment and Plan: Resume home meds (7) YOSEPH (obstructive sleep apnea): ?Code(s): G47.33 - Obstructive sleep apnea (adult) (pediatric) ?Status:?Acute ?Assessment and Plan: Currently on oxygen by nasal cannula (8) Generalized muscle weakness: ?Code(s): M62.81 - Muscle weakness (generalized) ?Status:?Acute ?Assessment and Plan: Likely deconditioning secondary to chronic illness (9) Chronic kidney disease, stage 3: ?Code(s): N18.30 - Chronic kidney disease, stage 3 unspecified ?Status:?Chronic ?Assessment and Plan: Continue to monitor BUN and creatinine Acute respiratory failure Unclear etiologies, patient has a, tachypnea, patient is on 5 L oxygen ABG showed hypoxemic respiratory failure patient has tachycardia tachypnea Order CT of chest need to rule out PE 04/16: CTA shows no pulmonary embolism, small pleural effusion. Order echo 02/04 10 am: Patient developed respiratory distress, patient was noted choking, some fluid the cause from throat, stat ABG showed hypoxemic respiratory failure, chest x-ray shows left basilar opacity and small pleural effusion, suspecting atelectasis versus less likely pneumonia 04/20/2023: Pt found to have RSV but appears asymptomatic today no specific complaints 04/21/2023:no specific complaints 04/22/2023: no resp compliants Acute blood loss anemia 04/16/23 Hemoglobin 6.9, hemoglobin 9.9 on arrival in the ED 04/14, patient underwent debridement of sacral decubitus ulcer on April 15, repeated HB, on hold 2 pack RBC 04/18: hb 6.9 transfuse RBC 04/19: Hemoglobin stable 9.0 in past 2 days 04/20: hb is 9.8 stable presently 04/22: hb is 9 BOAZ on CKD 04/16. Cr 1.5 04/20: Cr is 1 04/22: august 1/2 Essential hypertension Bp is stable Patient wishes DNR DNI code,
--- NOTE | 2023-04-22 13:46 | PC.NURSE ---
On 04/22/23, the student, [Kimber Troncoso], provided care and completed [facility] documentation on this patient. I have reviewed the student's documentation and agree with the findings.
--- NOTE | 2023-04-22 14:41 | WPDHPUPDATE1 ---
History and Physical Update Update Date/Time: 04/22/23 14:41 History and Physical has been reviewed, including an updated exam of the patient. There are NO changes in the patient's condition. Risks, benefits, and alternatives have been discussed and questions answered. Patient agrees to proceed with procedure.
--- NOTE | 2023-04-22 15:41 | PC.NURSE ---
To OR per Bed, DL PICC to ROSANNA. Report given to Annalisa Trotter & William .
[2023-04-22] MEDS: LACTATED RINGERS 1,000 ML 30 ML IV CONT (16:00)
[2023-04-22] MEDS: fentaNYL CITRATE INJ (*CRX) 100 MCG/2 ML VIAL 25 MCG IV PUSH ×4 (17:24→17:37)
--- NOTE | 2023-04-22 17:48 | SUR.PHASEI ---
Pt. remained in OR for Phase 1 Recovery. Report called to floor GABRIEL Wall.
--- NOTE | 2023-04-22 18:15 | PC.NURSE ---
Returned from OR per bed. Report received from Veronica.
[2023-04-22] MEDS: ASCORBIC ACID 500 MG TABLET PO (18:32)
[2023-04-22] MEDS: FINASTERIDE 5 MG TABLET PO (18:32)
[2023-04-22] MEDS: ZINC SULFATE 220 MG CAPSULE PO (18:32)
[2023-04-22] MEDS: SIMVASTATIN 20 MG TABLET PO (18:32)
[2023-04-22] MEDS: THERAPEUTIC MULTIVITAMINS/MINERALS TAB (*BKC) 1 TABLET PO (18:32)
[2023-04-22] MEDS: POTASSIUM CHLORIDE 20 MEQ PACKET (FOR LIQUID) 40 MEQ PO (18:32)
--- NOTE | 2023-04-22 19:11 | W.PM.PROC2 ---
Procedure Note - Detailed Date of Procedure 04/22/23 Pre-op Diagnosis UTI, Wound Infection, Wound to Buttock Post-op Diagnosis Same Procedure Performed Sharp debridement with scissors of subcutaneous fatty tissue and skin from sacral decubitus ulcer with application of wound VAC ( 306 sq cm ) Surgeon Porfirio Brown MD Final Operations Technician Vero Bird, [facility] Anesthesia General Indications patient is a 63-year-old gentleman presented with a very large stage IV sacral decubitus ulcer and sepsis. He has at 1 density debridement of necrotic and nonviable tissue from the wound. He also has had placement of a diverting colostomy to keep stool out of the wound. He presents now for another debridement of the wound and placement of wound VAC. Findings About 75% the wound was pretty clean the beginnings of some granulation tissue mostly on patient's right medial buttock region. There was some necrotic subcutaneous tissue and skin on the left buttock region which was debrided sharply with scissors. The wound measured [id number]. The total area covered by the wound VAC was 306 sq cm. Description of Procedure After informed consent was obtained patient brought directly to the operative room from the floor and then was placed under general endotracheal anesthesia on the bed then turned onto the prone position on the operating table. the lower back, bilateral buttock, sacral region, and perianal region was then prepped and draped usual sterile fashion. Time-out was then performed correctly identifying the patient as well as procedure to be performed and verified he was already on scheduled IV antibiotics. First started by examining the wound and about 75% of the wound was pretty clean without any necrotic tissue gross feculent material present. I irrigated the wound and then proceeded to perform sharp debridement with a pair of scissors of the nonviable and feculent stained subcutaneous tissue and a small portion of the skin edges. The sacrum was not exposed. There was good bleeding from the remaining viable tissue. I irrigated the incision again after feeling I had all the necrotic tissue removed. Hemostasis was achieved by cauterizing the areas where the oozing of blood was the most brisk. I then proceeded to measure the wound was 18cm in length by 17cm in width 5cm in maximal depth. I then proceeded to place a wound VAC over the large tissue defect. 3 large pieces of black foam were placed into the wound. A piece of black foam was then used to lateralize the wound VAC to the patient's left hip region and adhesive clear dressings was placed over the black foam to obtain good seal. The suction pad was placed over to the lateral portion of the wound VAC on left hip after cutting a hole in the clear adhesive dressing. The wound VAC was then activated and suction was applied. It was leaking of air from the wound dressing around the perianal region. Additional pieces of piece of dressing were applied until a good seal was obtained. The wound VAC was left at 125mm of mercury suction continuously. The patient tolerated the procedure well no complications. All sponges, needles, and instrument counts were correct at the end procedure. EBL was _30__cc. The patient was awakened and taken to recovery in stable and satisfactory condition. Implants None Estimated Blood Loss 30 Urine Output 250 Drains No Packing Yes ( Standard black foam wound VAC applied to wound at 125mm of mercury suction) Pathology None sent Complications No immediate complications Condition Stable Disposition PACU [facility] Billing Surgery - Charge Forward: Surgery Billing
[2023-04-22] MEDS: traZODone HCL 50 MG TABLET 150 MG PO (20:00)
[2023-04-22] MEDS: HYDROcodone/acetaminophen (*CRX) 5-325 MG TABLET 1 TAB PO (20:00)
[2023-04-22] MEDS: ESCITALOPRAM OXALATE 5 MG TABLET 15 MG PO (20:01)
[2023-04-23] VITALS (10 sets, daily range): BP systolic 104–123; BP diastolic 52–64; PULSE 68–85; RESP 16–18; TEMP 36.6–36.9; O2SAT 93–100
[2023-04-23] MEDS: ALPRAZolam (*CRX) 0.5 MG TABLET PO ×5 (00:03→21:52)
[2023-04-23] MEDS: oxyCODONE HCL (*CRX) 5 MG TAB IR 10 MG PO ×5 (00:03→23:37)
[2023-04-23] MEDS: PIPERACILLN/TAZ 3.375GM/NS50ML 3.375 GM/50 ML BAG IVPB ×2 (00:03→05:30)
[2023-04-23] MEDS: HYDROcodone/acetaminophen (*CRX) 5-325 MG TABLET 1 TAB PO ×2 (03:50→11:05)
[2023-04-23] MEDS: CENTRAL LINE FLUSH 10 ML IV PUSH ×3 (05:30→21:52)
[2023-04-23 06:06] LABS: Anion Gap 3 mmol/L (8-16); Blood Urea Nitrogen 12 mg/dL (9-20); Calcium 7.5 mg/dL (8.4-10.2); Carbon Dioxide 33 mmol/L (22-30); Chloride 105 mmol/L (98-107); Estimated CRCL calculation 69 ml/min; Estimated Glomerular Filt Rate > 60; Glucose 91 mg/dL (65-110); Potassium 3.8 mmol/L (3.4-5.0); Sodium 141 mmol/L (137-145)
--- NOTE | 2023-04-23 07:52 | PM.IMPN ---
Progress Note: A&P Assessment and Plan (1) Wound infection: Code(s): T14.8XXA - Other injury of unspecified body region, initial encounter; L08.9 - Local infection of the skin and subcutaneous tissue, unspecified Status: Acute (2) Acute UTI: Code(s): N39.0 - Urinary tract infection, site not specified Status: Acute (3) Sepsis: Code(s): A41.9 - Sepsis, unspecified organism Status: Acute Plan 63-year-old male with past medical history significant for alcohol abuse, chronic kidney disease, chronic pain syndrome, with anxiety, gout sleep apnea on CPAP, peripheral neuropathy, urinary retention, chronic Durant catheter.? Patient was brought to the emergency room due to infected wound and lethargy. .Preliminary workup was significant for subcutaneous soft tissue gas in the buttock area. General surgery has been consulted for his large sacral decubitus ulcer infected. He underwent excisional debridement on 04/15/2023 followed by diverting colostomy placement on 04/19/2023 did do continued contamination of wound with fecal material. Repeat debridement done on 04/22/2023. One consult growing Pseudomonas aeruginosa 04/15 Blood culture positive on 04/14/2023 with Staph epidermidis resistant to oxacillin. Repeat blood cultures 04/17/2023 growth to date UTI urine culture no growth Failure to thrive with recurrent admissions Stage IV sacral decubitus ulcer with infection no exposure of sacrum. Will switch to Cipro oral for 7 more days as discussed with ID Chronic pain syndrome YOSEPH AHI of 96.6 suggestive of severe obstructive sleep apnea in past. Was started on CPAP however he stopped using them. Needs outpatient sleep study Acute hypercapnic respiratory failure on admission ABG showed hypoxemic respiratory failure with tachycardia and tachypnea on 5 L oxygen. CTA showed no pulmonary embolism small pleural effusion. Found to have a RSV. Hypercapnia likely related to sedation improved with noninvasive BiPAP ventilatory support which has been off pulmonary was consulted during the hospital stay Acute blood loss anemia hemoglobin 9.9 on 04/14 postoperatively due to 6.9 needing blood transfusion continue to monitor Hypertension Code status DNR DNI History of neurocognitive disorder Depression anxiety with history of suicide attempt 03/20 with Tylenol Morbid obesity BPH with urinary retention and possible neurogenic bladder and recurrent hydronephrosis and BOAZ Gout DVT prophylaxis will start Lovenox Cervical disc disorder with myelopathy status post surgical intervention C4-C7 decompression and C3-T1 posterolateral fusion 12/16/2022 done at [facility] Subjective Date/time seen: 04/23/23 07:52 Interval history: 63-year-old male with past medical history significant for alcohol abuse, chronic kidney disease, chronic pain syndrome, with anxiety, gout sleep apnea on CPAP, peripheral neuropathy, urinary retention, chronic Durant catheter.? Patient was brought to the emergency room due to infected wound and lethargy. .Preliminary workup was significant for subcutaneous soft tissue gas in the buttock area. General surgery has been consulted for his large sacral decubitus ulcer infected. He underwent excisional debridement on 04/15/2023 followed by diverting colostomy placement on 04/19/2023 did do continued contamination of wound with fecal material. Repeat debridement done on 04/22/2023. One consult growing Pseudomonas aeruginosa 04/15 Blood culture positive on 04/14/2023 with Staph epidermidis resistant to oxacillin. Repeat blood cultures 04/17/2023 growth to date UTI urine culture no growth Failure to thrive with recurrent admissions Stage IV sacral decubitus ulcer with infection no exposure of sacrum. Will switch to Cipro oral for 7 more days as discussed with ID Chronic pain syndrome YOSEPH Acute respiratory failure on admission ABG showed hypoxemic respiratory failure with tachycardia and tachypnea on 5 L oxyg
[2023-04-23] MEDS: ASCORBIC ACID 500 MG TABLET PO (09:30)
[2023-04-23] MEDS: PARoxetine 10 MG TABLET 30 MG PO (09:30)
[2023-04-23] MEDS: FINASTERIDE 5 MG TABLET PO (09:30)
[2023-04-23] MEDS: ENOXAPARIN 40 MG/0.4 ML SYRINGE SUB-Q (09:30)
[2023-04-23] MEDS: PREGABALIN (*CRX) 75 MG CAPSULE 150 MG PO ×3 (09:30→18:07)
[2023-04-23] MEDS: THERAPEUTIC MULTIVITAMINS/MINERALS TAB (*BKC) 1 TABLET PO (09:30)
[2023-04-23] MEDS: ZINC SULFATE 220 MG CAPSULE PO (09:31)
[2023-04-23] MEDS: TIMOLOL MALEATE 0.5% OP SOLN 5 ML BOTTLE 1 DROP EACH EYE (09:31)
[2023-04-23] MEDS: POTASSIUM CHLORIDE 20 MEQ PACKET (FOR LIQUID) 40 MEQ PO ×2 (09:31→18:07)
[2023-04-23] MEDS: SIMVASTATIN 20 MG TABLET PO (09:31)
[2023-04-23] MEDS: CIPROFLOXACIN 500 MG TAB PO ×2 (12:50→21:52)
[2023-04-23] MEDS: FERROUS SULFATE 325 MG TABLET DR PO (12:50)
[2023-04-23] MEDS: metroNIDAZOLE 500 MG TABLET PO ×2 (15:16→21:52)
--- NOTE | 2023-04-23 15:32 | WPDPN ---
Progress Note: A&P Assessment and Plan (1) Decubitus ulcer of sacral region, unstageable: Code(s): L89.150 - Pressure ulcer of sacral region, unstageable Status: Acute Assessment and Plan: Patient doing well today after debridement and placement of wound VAC onto the very large sacral decubitus wound. He will need another wound VAC change on Wednesday of next week. We will see how he does but if he has any respiratory problems like he did during surgery yesterday that he may need to stay in IMU after the wound VAC change and debridement on Wednesday in the operating room. Subjective Date/time seen: 04/23/23 15:32 Interval history: Patient is status post initial extensive debridement necrotic tissue from stage for sacral decubitus ulcer which involves the bilateral renal buttocks as well as the perianal region. He is also status post diverting end colostomy to divert his fecal stream from the wound. More recently yesterday he underwent debridement of the wound in the operating room placement of a wound VAC. he overall has been doing very well since surgery yesterday. Wound VAC seems to be working well with a good seal. He is eating a solid diet today having good output through his ostomy. Exam Skin: Other: Wound VAC applied to large sacral decubitus wound. Vac in place without any redness or drainage. Objective Data Vital Signs Vital Signs: Vital Signs - 24 hr 04/22/23 16:58 04/22/23 17:10 04/22/23 17:15 Temperature 36.1 C L Pulse Rate 80 78 78 Respiratory Rate 14 20 20 Blood Pressure 181/86 H 156/84 H Pulse Oximetry 100 93 93 Oxygen Delivery Simple Face Mask Room Air Nasal Cannula Oxygen Flow Rate 10 2 Fraction of Inspired Oxygen 04/22/23 17:30 04/22/23 17:45 04/22/23 17:55 Temperature Pulse Rate 76 76 75 Respiratory Rate 20 20 18 Blood Pressure 150/70 H 129/64 128/70 Pulse Oximetry 93 93 93 Oxygen Delivery Nasal Cannula Nasal Cannula Nasal Cannula Oxygen Flow Rate 2 2 2 Fraction of Inspired Oxygen 04/22/23 18:13 04/22/23 18:28 04/22/23 18:58 Temperature 36.4 C L 36.2 C L 36.3 C L Pulse Rate 76 77 79 Respiratory Rate 16 16 16 Blood Pressure 117/54 L 105/57 L 99/57 L Pulse Oximetry 98 94 96 Oxygen Delivery Oxygen Flow Rate Fraction of Inspired Oxygen 04/22/23 20:07 04/22/23 20:00 04/22/23 23:59 Temperature 36.6 C 36.8 C Pulse Rate 72 74 Respiratory Rate 16 16 Blood Pressure 138/97 H 131/64 Pulse Oximetry 97 97 95 Oxygen Delivery Nasal Cannula Oxygen Flow Rate 1 Fraction of Inspired Oxygen 04/23/23 04:02 04/23/23 08:14 04/23/23 08:14 Temperature 36.9 C Pulse Rate 77 Respiratory Rate 18 Blood Pressure 123/62 Pulse Oximetry 96 96 96 Oxygen Delivery Nasal Cannula Nasal Cannula Oxygen Flow Rate 1 Fraction of Inspired Oxygen 04/23/23 09:27 04/23/23 09:40 04/23/23 10:00 Temperature Pulse Rate 68 Respiratory Rate 18 Blood Pressure 116/64 Pulse Oximetry 100 95 96 Oxygen Delivery Room Air Room Air Oxygen Flow Rate Fraction of Inspired Oxygen 04/23/23 12:49 04/23/23 13:40 Temperature 36.6 C Pulse Rate 75 Respiratory Rate 16 Blood Pressure 114/55 L Pulse Oximetry 94 93 Oxygen Delivery Room Air Oxygen Flow Rate Fraction of Inspired Oxygen Intake/Output Intake/Output: Intake & Output 04/20/23 04/21/23 04/22/23 04/23/23 23:59 23:59 23:59 23:59 Intake Total 1710 1630 300 510 Output Total 2400 3300 2485 700 Balance -690 -1670 -2185 -190 Meds/Results Medications: Active Medications Generic Name Dose Route Start Last Admin Trade Name Freq PRN Reason Stop Dose Admin Hydrocodone Bitart/Acetaminophen 1 tab 04/20/23 12:13 04/23/23 11:05 Hydrocodone/Acetaminophen (*Crx) 5-325 Mg Tablet PO 1 tab Q4H PRN Administration Pain Rated 4-6 Albuterol 2.5 mg 04/17/23 11:23 Albuterol Sulfate Neb 2.5 Mg/3 Ml Inh INHALATION Q6HRT PRN Shortness Of B
--- NOTE | 2023-04-23 17:30 | PC.NURSE ---
Patient refused medications at this time, he would like to eat dinner first
[2023-04-23] MEDS: traZODone HCL 50 MG TABLET 150 MG PO (21:52)
[2023-04-23] MEDS: ESCITALOPRAM OXALATE 5 MG TABLET 15 MG PO (21:52)
[2023-04-24] MEDS: oxyCODONE HCL (*CRX) 5 MG TAB IR 10 MG PO ×3 (05:24→18:56)
[2023-04-24] MEDS: CENTRAL LINE FLUSH 10 ML IV PUSH ×3 (05:24→21:26)
[2023-04-24] MEDS: metroNIDAZOLE 500 MG TABLET PO ×3 (05:24→21:26)
[2023-04-24 05:41] LABS: Basophils Absolute Auto 0.1 K/mm3 (0.0-0.1); Basophils Percent Auto 0.5 % (0.2-1.2); Eosinophils Absolute Auto 0.7 K/mm3 (0-0.3); Eosinophils Percent Auto 4.9 % (0-4.4); Hematocrit 29.7 % (42.0-52.0); Hemoglobin 9.2 g/dL (14.0-18.0); Immature Granulocyte Percent A 2.3 % (0-0.5); Lymphocytes Absolute Auto 2.74 K/mm3 (0.9-3.2); Lymphocytes Percent Auto 20.6 % (18.3-44.2); Mean Corpuscular Volume 90.5 fl (80-100); Mean Platelet Volume 8.9 fl (7.4-10.4); Monocytes Percent Auto 7.2 % (2.6-8.5); Neutrophils Absolute Auto 8.6 K/mm3 (1.3-6.7); Neutrophils Percent Auto 64.5 % (45.5-73.1); Platelet Count Result 437 k/mm3 (150-375); Red Blood Count 3.28 M/mm3 (4.6-6.20); Red Cell Distribution Width 14.8 % (11.5-14.5); White Blood Count 13.3 K/mm3 (4.5-10.0)
[2023-04-24 05:51] LABS: Alanine Aminotransferase 13 U/L (6-50); Albumin Level 2.7 g/dL (3.5-5.1); Alkaline Phosphatase 142 U/L (38-126); Anion Gap 4 mmol/L (8-16); Aspartate Amino Transferase 27 U/L (17-59); Bilirubin,Total 0.4 mg/dL (0.2-1.3); Blood Urea Nitrogen 14 mg/dL (9-20); Calcium 8.1 mg/dL (8.4-10.2); Carbon Dioxide 32 mmol/L (22-30); Chloride 106 mmol/L (98-107); Estimated CRCL calculation 64 ml/min; Estimated Glomerular Filt Rate 56; Glucose 92 mg/dL (65-110); Magnesium 1.5 mg/dL (1.6-2.3); Sodium 142 mmol/L (137-145)
[2023-04-24 09:38] VITALS: BP 118/56; PULSE 88; RESP 16; TEMP 36.9; O2SAT 93
[2023-04-24] MEDS: ASCORBIC ACID 500 MG TABLET PO (09:39)
[2023-04-24] MEDS: THERAPEUTIC MULTIVITAMINS/MINERALS TAB (*BKC) 1 TABLET PO (09:39)
[2023-04-24] MEDS: MAGNESIUM SULF 2 GM/WATER 50ML 2 GM/50 ML BAG IVPB (09:39)
[2023-04-24] MEDS: PREGABALIN (*CRX) 75 MG CAPSULE 150 MG PO ×3 (09:39→17:56)
[2023-04-24] MEDS: ALPRAZolam (*CRX) 0.5 MG TABLET PO ×4 (09:39→21:26)
[2023-04-24] MEDS: FINASTERIDE 5 MG TABLET PO (09:39)
[2023-04-24] MEDS: CIPROFLOXACIN 500 MG TAB PO ×2 (09:39→21:27)
[2023-04-24] MEDS: TIMOLOL MALEATE 0.5% OP SOLN 5 ML BOTTLE 1 DROP EACH EYE (09:40)
[2023-04-24] MEDS: POTASSIUM CHLORIDE 20 MEQ PACKET (FOR LIQUID) 40 MEQ PO ×2 (09:40→17:57)
[2023-04-24] MEDS: PARoxetine 10 MG TABLET 30 MG PO (09:40)
[2023-04-24] MEDS: ENOXAPARIN 40 MG/0.4 ML SYRINGE SUB-Q (09:40)
[2023-04-24] MEDS: ZINC SULFATE 220 MG CAPSULE PO (09:40)
[2023-04-24] MEDS: SIMVASTATIN 20 MG TABLET PO (09:40)
[2023-04-24] MEDS: FERROUS SULFATE 325 MG TABLET DR PO (13:16)
--- NOTE | 2023-04-24 14:47 | PM.IMPN ---
Progress Note: A&P Assessment and Plan (1) Wound infection: Code(s): T14.8XXA - Other injury of unspecified body region, initial encounter; L08.9 - Local infection of the skin and subcutaneous tissue, unspecified Status: Acute (2) Acute UTI: Code(s): N39.0 - Urinary tract infection, site not specified Status: Acute (3) Sepsis: Code(s): A41.9 - Sepsis, unspecified organism Status: Acute Plan 63-year-old male with past medical history significant for alcohol abuse, chronic kidney disease, chronic pain syndrome, with anxiety, gout sleep apnea on CPAP, peripheral neuropathy, urinary retention, chronic Durant catheter.? Patient was brought to the emergency room due to infected wound and lethargy. .Preliminary workup was significant for subcutaneous soft tissue gas in the buttock area. General surgery has been consulted for his large sacral decubitus ulcer infected. He underwent excisional debridement on 04/15/2023 followed by diverting colostomy placement on 04/19/2023 did do continued contamination of wound with fecal material. Repeat debridement done on 04/22/2023. One consult growing Pseudomonas aeruginosa 04/15 Blood culture positive on 04/14/2023 with Staph epidermidis resistant to oxacillin. Repeat blood cultures 04/17/2023 growth to date UTI urine culture no growth Failure to thrive with recurrent admissions Stage IV sacral decubitus ulcer with infection no exposure of sacrum. Will switch to Cipro oral for 7 more days as discussed with ID Chronic pain syndrome YOSEPH AHI of 96.6 suggestive of severe obstructive sleep apnea in past. Was started on CPAP however he stopped using them. Needs outpatient sleep study Acute hypercapnic respiratory failure on admission ABG showed hypoxemic respiratory failure with tachycardia and tachypnea on 5 L oxygen. CTA showed no pulmonary embolism small pleural effusion. Found to have a RSV. Hypercapnia likely related to sedation improved with noninvasive BiPAP ventilatory support which has been off pulmonary was consulted during the hospital stay Acute blood loss anemia hemoglobin 9.9 on 04/14 postoperatively due to 6.9 needing blood transfusion continue to monitor Hypertension Code status DNR DNI History of neurocognitive disorder Depression anxiety with history of suicide attempt 03/20 with Tylenol Morbid obesity BPH with urinary retention and possible neurogenic bladder and recurrent hydronephrosis and OBAZ Gout DVT prophylaxis will start Lovenox Cervical disc disorder with myelopathy status post surgical intervention C4-C7 decompression and C3-T1 posterolateral fusion 12/16/2022 done at [facility] Subjective Date/time seen: 04/24/23 14:47 Interval history: 63-year-old male with past medical history significant for alcohol abuse, chronic kidney disease, chronic pain syndrome, with anxiety, gout sleep apnea on CPAP, peripheral neuropathy, urinary retention, chronic Durant catheter.? Patient was brought to the emergency room due to infected wound and lethargy. .Preliminary workup was significant for subcutaneous soft tissue gas in the buttock area. General surgery has been consulted for his large sacral decubitus ulcer infected. He underwent excisional debridement on 04/15/2023 followed by diverting colostomy placement on 04/19/2023 did do continued contamination of wound with fecal material. Repeat debridement done on 04/22/2023. One consult growing Pseudomonas aeruginosa 04/15 Blood culture positive on 04/14/2023 with Staph epidermidis resistant to oxacillin. Repeat blood cultures 04/17/2023 growth to date UTI urine culture no growth Failure to thrive with recurrent admissions Stage IV sacral decubitus ulcer with infection no exposure of sacrum. Will switch to Cipro oral for 7 more days as discussed with ID Chronic pain syndrome YOSEPH Acute respiratory failure on admission ABG showed hypoxemic respiratory failure with tachycardia and tachypnea on 5 L oxyg
[2023-04-24 14:59] VITALS: BP 111/73; PULSE 77; RESP 16; TEMP 36.8; O2SAT 90
[2023-04-24 17:56] VITALS: PULSE 88; RESP 16; O2SAT 93
[2023-04-24 20:00] VITALS: PULSE 88; RESP 16; O2SAT 93
[2023-04-24] MEDS: traZODone HCL 50 MG TABLET 150 MG PO (21:26)
[2023-04-24] MEDS: ESCITALOPRAM OXALATE 5 MG TABLET 15 MG PO (21:27)
[2023-04-25] VITALS: BP 114/83; PULSE 78; RESP 18; TEMP 37.1; O2SAT 90
[2023-04-25] MEDS: oxyCODONE HCL (*CRX) 5 MG TAB IR 10 MG PO ×5 (00:42→23:58)
[2023-04-25] MEDS: CENTRAL LINE FLUSH 10 ML IV PUSH ×3 (05:42→20:58)
[2023-04-25] MEDS: metroNIDAZOLE 500 MG TABLET PO ×3 (05:43→20:57)
[2023-04-25 06:10] LABS: Basophils Absolute Auto 0.1 K/mm3 (0.0-0.1); Basophils Percent Auto 0.3 % (0.2-1.2); Eosinophils Absolute Auto 0.7 K/mm3 (0-0.3); Eosinophils Percent Auto 4.5 % (0-4.4); Hematocrit 31.5 % (42.0-52.0); Hemoglobin 9.6 g/dL (14.0-18.0); Immature Granulocyte Absolute 0.39 K/mm3 (0.00-0.031); Immature Granulocyte Percent A 2.7 % (0-0.5); Lymphocytes Absolute Auto 2.74 K/mm3 (0.9-3.2); Lymphocytes Percent Auto 19.1 % (18.3-44.2); Mean Corpuscular HGB Conc 30.5 g/dl (32-36); Mean Corpuscular Hemoglobin 28.3 pg (26-34); Mean Corpuscular Volume 92.9 fl (80-100); Mean Platelet Volume 9.1 fl (7.4-10.4); Monocytes Absolute Auto 1.1 K/mm3 (0.1-0.6); Monocytes Percent Auto 7.5 % (2.6-8.5); Neutrophils Absolute Auto 9.5 K/mm3 (1.3-6.7); Neutrophils Percent Auto 65.9 % (45.5-73.1); Platelet Count Result 426 k/mm3 (150-375); Red Blood Count 3.39 M/mm3 (4.6-6.20); Red Cell Distribution Width 15.3 % (11.5-14.5); White Blood Count 14.4 K/mm3 (4.5-10.0)
[2023-04-25 06:25] LABS: Alanine Aminotransferase 12 U/L (6-50); Albumin Level 2.8 g/dL (3.5-5.1); Alkaline Phosphatase 142 U/L (38-126); Anion Gap 3 mmol/L (8-16); Aspartate Amino Transferase 41 U/L (17-59); Bilirubin,Total 0.4 mg/dL (0.2-1.3); Blood Urea Nitrogen 16 mg/dL (9-20); Calcium 8.5 mg/dL (8.4-10.2); Carbon Dioxide 32 mmol/L (22-30); Chloride 104 mmol/L (98-107); Estimated CRCL calculation 64 ml/min; Estimated Glomerular Filt Rate 56; Glucose 91 mg/dL (65-110); Magnesium 1.7 mg/dL (1.6-2.3); Potassium 4.5 mmol/L (3.4-5.0); Sodium 139 mmol/L (137-145)
[2023-04-25 08:30] VITALS: BP 107/66; PULSE 85; RESP 18; O2SAT 93
[2023-04-25] MEDS: PREGABALIN (*CRX) 75 MG CAPSULE 150 MG PO ×3 (10:25→18:01)
[2023-04-25] MEDS: SIMVASTATIN 20 MG TABLET PO (10:54)
[2023-04-25] MEDS: POTASSIUM CHLORIDE 20 MEQ PACKET (FOR LIQUID) 40 MEQ PO ×2 (10:54→18:01)
[2023-04-25] MEDS: FINASTERIDE 5 MG TABLET PO (10:54)
[2023-04-25] MEDS: ZINC SULFATE 220 MG CAPSULE PO (10:54)
[2023-04-25] MEDS: ALPRAZolam (*CRX) 0.5 MG TABLET PO ×4 (10:54→20:57)
[2023-04-25] MEDS: PARoxetine 10 MG TABLET 30 MG PO (10:54)
[2023-04-25] MEDS: CIPROFLOXACIN 500 MG TAB PO ×2 (10:54→20:57)
[2023-04-25] MEDS: ASCORBIC ACID 500 MG TABLET PO (10:54)
[2023-04-25] MEDS: THERAPEUTIC MULTIVITAMINS/MINERALS TAB (*BKC) 1 TABLET PO (10:54)
[2023-04-25] MEDS: TIMOLOL MALEATE 0.5% OP SOLN 5 ML BOTTLE 1 DROP EACH EYE (10:55)
[2023-04-25] MEDS: ENOXAPARIN 40 MG/0.4 ML SYRINGE SUB-Q (11:30)
--- NOTE | 2023-04-25 13:14 | PM.IMPN ---
Progress Note: A&P Assessment and Plan (1) Wound infection: Code(s): T14.8XXA - Other injury of unspecified body region, initial encounter; L08.9 - Local infection of the skin and subcutaneous tissue, unspecified Status: Acute (2) Acute UTI: Code(s): N39.0 - Urinary tract infection, site not specified Status: Acute (3) Sepsis: Code(s): A41.9 - Sepsis, unspecified organism Status: Acute Plan 63-year-old male with past medical history significant for alcohol abuse, chronic kidney disease, chronic pain syndrome, with anxiety, gout sleep apnea on CPAP, peripheral neuropathy, urinary retention, chronic Durant catheter.? Patient was brought to the emergency room due to infected wound and lethargy. .Preliminary workup was significant for subcutaneous soft tissue gas in the buttock area. General surgery has been consulted for his large sacral decubitus ulcer infected. He underwent excisional debridement on 04/15/2023 followed by diverting colostomy placement on 04/19/2023 did do continued contamination of wound with fecal material. Repeat debridement done on 04/22/2023. One consult growing Pseudomonas aeruginosa 04/15 Blood culture positive on 04/14/2023 with Staph epidermidis resistant to oxacillin. Repeat blood cultures 04/17/2023 growth to date UTI urine culture no growth Failure to thrive with recurrent admissions Stage IV sacral decubitus ulcer with infection no exposure of sacrum. Will switch to Cipro and Flagyl oral for 7 more days as discussed with ID may go for another debridement in a.m. Chronic pain syndrome YOSEPH AHI of 96.6 suggestive of severe obstructive sleep apnea in past. Was started on CPAP however he stopped using them. Needs outpatient sleep study Acute hypercapnic respiratory failure on admission ABG showed hypoxemic respiratory failure with tachycardia and tachypnea on 5 L oxygen. CTA showed no pulmonary embolism small pleural effusion. Found to have a RSV. Hypercapnia likely related to sedation improved with noninvasive BiPAP ventilatory support which has been off pulmonary was consulted during the hospital stay Acute blood loss anemia hemoglobin 9.9 on 04/14 postoperatively due to 6.9 needing blood transfusion continue to monitor Hypertension Code status DNR DNI History of neurocognitive disorder Depression anxiety with history of suicide attempt 03/20 with Tylenol Morbid obesity BPH with urinary retention and possible neurogenic bladder and recurrent hydronephrosis and BOAZ Gout DVT prophylaxis will start Lovenox Cervical disc disorder with myelopathy status post surgical intervention C4-C7 decompression and C3-T1 posterolateral fusion 12/16/2022 done at [place] [facility] Subjective Date/time seen: 04/25/23 13:14 Interval history: 63-year-old male with past medical history significant for alcohol abuse, chronic kidney disease, chronic pain syndrome, with anxiety, gout sleep apnea on CPAP, peripheral neuropathy, urinary retention, chronic Durant catheter.? Patient was brought to the emergency room due to infected wound and lethargy. .Preliminary workup was significant for subcutaneous soft tissue gas in the buttock area. General surgery has been consulted for his large sacral decubitus ulcer infected. He underwent excisional debridement on 04/15/2023 followed by diverting colostomy placement on 04/19/2023 did do continued contamination of wound with fecal material. Repeat debridement done on 04/22/2023. One consult growing Pseudomonas aeruginosa 04/15 Blood culture positive on 04/14/2023 with Staph epidermidis resistant to oxacillin. Repeat blood cultures 04/17/2023 growth to date UTI urine culture no growth Failure to thrive with recurrent admissions Stage IV sacral decubitus ulcer with infection no exposure of sacrum. Will switch to Cipro oral for 7 more days as discussed with ID Chronic pain syndrome YOSEPH Acute respiratory failure on admission ABG showed hypoxemic respiratory
[2023-04-25] MEDS: FERROUS SULFATE 325 MG TABLET DR PO (13:31)
[2023-04-25 14:46] VITALS: BP 100/62; PULSE 81; RESP 16; TEMP 36.8; O2SAT 92
--- NOTE | 2023-04-25 16:51 | PCRCNOTE ---
Window of time for administration has passed. See next scheduled administration.
[2023-04-25 19:30] VITALS: BP 122/64; PULSE 77; RESP 18; TEMP 37.1; O2SAT 93
[2023-04-25 20:00] VITALS: PULSE 72; PULSE 76; RESP 18; O2SAT 93
[2023-04-25] MEDS: IPRATROPIUM 0.5 MG/ALBUTEROL SULFATE 2.5 MG AMPUL.NEB 3 ML INHALATION (20:00)
[2023-04-25 20:10] VITALS: PULSE 72; RESP 18
[2023-04-25] MEDS: ESCITALOPRAM OXALATE 5 MG TABLET 15 MG PO (20:57)
[2023-04-25] MEDS: traZODone HCL 50 MG TABLET 150 MG PO (20:57)
[2023-04-26] VITALS (20 sets, daily range): BP systolic 97–146; BP diastolic 52–80; PULSE 71–79; RESP 12–18; TEMP 35.9–37.2; O2SAT 89–100
[2023-04-26] MEDS: CENTRAL LINE FLUSH 10 ML IV PUSH ×2 (05:41→21:15)
[2023-04-26] MEDS: metroNIDAZOLE 500 MG TABLET PO ×2 (05:41→21:05)
[2023-04-26] MEDS: oxyCODONE HCL (*CRX) 5 MG TAB IR 10 MG PO ×2 (05:41→18:09)
[2023-04-26 06:28] LABS: Basophils Absolute Auto 0.1 K/mm3 (0.0-0.1); Basophils Percent Auto 0.6 % (0.2-1.2); Eosinophils Absolute Auto 0.7 K/mm3 (0-0.3); Eosinophils Percent Auto 4.8 % (0-4.4); Hematocrit 31.4 % (42.0-52.0); Hemoglobin 9.7 g/dL (14.0-18.0); Immature Granulocyte Absolute 0.36 K/mm3 (0.00-0.031); Immature Granulocyte Percent A 2.5 % (0-0.5); Lymphocytes Absolute Auto 2.84 K/mm3 (0.9-3.2); Lymphocytes Percent Auto 19.9 % (18.3-44.2); Mean Corpuscular HGB Conc 30.9 g/dl (32-36); Mean Corpuscular Hemoglobin 28.3 pg (26-34); Mean Corpuscular Volume 91.5 fl (80-100); Mean Platelet Volume 9.2 fl (7.4-10.4); Monocytes Absolute Auto 1.2 K/mm3 (0.1-0.6); Monocytes Percent Auto 8.7 % (2.6-8.5); Neutrophils Absolute Auto 9.1 K/mm3 (1.3-6.7); Neutrophils Percent Auto 63.5 % (45.5-73.1); Platelet Count Result 430 k/mm3 (150-375); Red Blood Count 3.43 M/mm3 (4.6-6.20); Red Cell Distribution Width 15.5 % (11.5-14.5); White Blood Count 14.3 K/mm3 (4.5-10.0)
[2023-04-26 06:35] LABS: Alanine Aminotransferase 12 U/L (6-50); Albumin Level 2.9 g/dL (3.5-5.1); Alkaline Phosphatase 146 U/L (38-126); Anion Gap 3 mmol/L (8-16); Aspartate Amino Transferase 30 U/L (17-59); Bilirubin,Total 0.4 mg/dL (0.2-1.3); Blood Urea Nitrogen 15 mg/dL (9-20); Calcium 8.8 mg/dL (8.4-10.2); Carbon Dioxide 31 mmol/L (22-30); Chloride 103 mmol/L (98-107); Estimated CRCL calculation 60 ml/min; Estimated Glomerular Filt Rate 51; Glucose 89 mg/dL (65-110); Magnesium 1.8 mg/dL (1.6-2.3); Potassium 4.7 mmol/L (3.4-5.0); Sodium 137 mmol/L (137-145)
[2023-04-26] MEDS: TIMOLOL MALEATE 0.5% OP SOLN 5 ML BOTTLE 1 DROP EACH EYE (09:07)
[2023-04-26] MEDS: IPRATROPIUM 0.5 MG/ALBUTEROL SULFATE 2.5 MG AMPUL.NEB 3 ML INHALATION ×2 (09:22→21:09)
[2023-04-26] MEDS: LACTATED RINGERS 1,000 ML 30 ML IV CONT (12:06)
[2023-04-26] MEDS: fentaNYL CITRATE INJ (*CRX) 100 MCG/2 ML VIAL 25 MCG IV PUSH ×3 (12:13→15:15)
--- NOTE | 2023-04-26 12:30 | PM.IMPN ---
Progress Note: A&P Assessment and Plan (1) Wound infection: Code(s): T14.8XXA - Other injury of unspecified body region, initial encounter; L08.9 - Local infection of the skin and subcutaneous tissue, unspecified Status: Acute (2) Acute UTI: Code(s): N39.0 - Urinary tract infection, site not specified Status: Acute (3) Sepsis: Code(s): A41.9 - Sepsis, unspecified organism Status: Acute Plan 63-year-old male with past medical history significant for alcohol abuse, chronic kidney disease, chronic pain syndrome, with anxiety, gout sleep apnea on CPAP, peripheral neuropathy, urinary retention, chronic Durant catheter.? Patient was brought to the emergency room due to infected wound and lethargy. .Preliminary workup was significant for subcutaneous soft tissue gas in the buttock area. General surgery has been consulted for his large sacral decubitus ulcer infected. He underwent excisional debridement on 04/15/2023 followed by diverting colostomy placement on 04/19/2023 did do continued contamination of wound with fecal material. Repeat debridement done on 04/22/2023. One consult growing Pseudomonas aeruginosa 04/15 Blood culture positive on 04/14/2023 with Staph epidermidis resistant to oxacillin. Repeat blood cultures 04/17/2023 growth to date UTI urine culture no growth Failure to thrive with recurrent admissions Stage IV sacral decubitus ulcer with infection no exposure of sacrum. Will switch to Cipro and Flagyl oral for 7 more days as discussed with ID. Another wound VAC change and potential debridement today Chronic pain syndrome YOSEPH AHI of 96.6 suggestive of severe obstructive sleep apnea in past. Was started on CPAP however he stopped using them. Needs outpatient sleep study Acute hypercapnic respiratory failure on admission ABG showed hypoxemic respiratory failure with tachycardia and tachypnea on 5 L oxygen. CTA showed no pulmonary embolism small pleural effusion. Found to have a RSV. Hypercapnia likely related to sedation improved with noninvasive BiPAP ventilatory support which has been off pulmonary was consulted during the hospital stay Acute blood loss anemia hemoglobin 9.9 on 04/14 postoperatively due to 6.9 needing blood transfusion continue to monitor Hypertension Code status DNR DNI History of neurocognitive disorder Depression anxiety with history of suicide attempt 03/20 with Tylenol Morbid obesity BPH with urinary retention and possible neurogenic bladder and recurrent hydronephrosis and BOAZ Gout DVT prophylaxis will start Lovenox Cervical disc disorder with myelopathy status post surgical intervention C4-C7 decompression and C3-T1 posterolateral fusion 12/16/2022 done at [place] Subjective Date/time seen: 04/26/23 12:30 Interval history: 63-year-old male with past medical history significant for alcohol abuse, chronic kidney disease, chronic pain syndrome, with anxiety, gout sleep apnea on CPAP, peripheral neuropathy, urinary retention, chronic Durant catheter.? Patient was brought to the emergency room due to infected wound and lethargy. .Preliminary workup was significant for subcutaneous soft tissue gas in the buttock area. General surgery has been consulted for his large sacral decubitus ulcer infected. He underwent excisional debridement on 04/15/2023 followed by diverting colostomy placement on 04/19/2023 did do continued contamination of wound with fecal material. Repeat debridement done on 04/22/2023. One consult growing Pseudomonas aeruginosa 04/15 Blood culture positive on 04/14/2023 with Staph epidermidis resistant to oxacillin. Repeat blood cultures 04/17/2023 growth to date UTI urine culture no growth Failure to thrive with recurrent admissions Stage IV sacral decubitus ulcer with infection no exposure of sacrum. Will switch to Cipro oral for 7 more days as discussed with ID Chronic pain syndrome YOSEPH Acute respiratory failure on admission ABG showed hy
--- NOTE | 2023-04-26 12:33 | WPDHPUPDATE1 ---
History and Physical Update Update Date/Time: 04/26/23 12:33 History and Physical has been reviewed, including an updated exam of the patient. There are NO changes in the patient's condition. Risks, benefits, and alternatives have been discussed and questions answered. Patient agrees to proceed with procedure.
--- NOTE | 2023-04-26 12:33 | WPDPN ---
Progress Note: A&P Assessment and Plan (1) Decubitus ulcer of sacral region, unstageable: Code(s): L89.150 - Pressure ulcer of sacral region, unstageable Status: Acute Assessment and Plan: Return to the OR today wash out the wound and any further debridement as needed. Wound VAC will be changed today. He will have to be in the prone position and there are any issues with breathing postoperative will likely have him go to IMU postoperatively. Subjective Date/time seen: 04/26/23 12:33 Interval history: Patient doing well over the weekend. No issues of wound VAC. White blood cell stable at 14,000 thousand. Colostomy has been working well and is tolerating diet. Exam GI: Other: Abdomen soft and nondistended. Port site incisions healed well. Colostomy is viable and not retracted. Good output of stool. Skin: Other: Wound VAC in place on large sacral decubitus ulcer. Objective Data Vital Signs Vital Signs: Vital Signs - 24 hr 04/25/23 14:46 04/25/23 19:30 04/25/23 20:00 Temperature 36.8 C 37.1 C Pulse Rate 81 77 76 Respiratory Rate 16 18 18 Blood Pressure 100/62 122/64 Pulse Oximetry 92 93 Oxygen Delivery Fraction of Inspired Oxygen 04/25/23 20:10 04/25/23 20:00 04/25/23 20:00 Temperature Pulse Rate 72 76 72 Respiratory Rate 18 18 Blood Pressure Pulse Oximetry 93 93 Oxygen Delivery Room Air Room Air Fraction of Inspired Oxygen 04/26/23 08:36 04/26/23 09:22 04/26/23 09:25 Temperature 37.0 C Pulse Rate 74 74 Respiratory Rate 16 18 Blood Pressure 97/52 L Pulse Oximetry 93 91 Oxygen Delivery Room Air Fraction of Inspired Oxygen 04/26/23 09:32 04/26/23 09:20 04/26/23 11:59 Temperature 37.2 C Pulse Rate 72 77 Respiratory Rate 18 18 Blood Pressure 131/78 Pulse Oximetry 93 Oxygen Delivery Room Air Room Air Fraction of Inspired Oxygen Intake/Output Intake/Output: Intake & Output 04/23/23 04/24/23 04/25/23 04/26/23 23:59 23:59 23:59 23:59 Intake Total 990 1340 1300 Output Total 1900 4825 2099 2049 Balance -910 -3485 -800 -2049 Meds/Results Medications: Active Medications Generic Name Dose Route Start Last Admin Trade Name Freq PRN Reason Stop Dose Admin Hydrocodone Bitart/Acetaminophen 1 tab 04/20/23 12:13 04/23/23 11:05 Hydrocodone/Acetaminophen (*Crx) 5-325 Mg Tablet PO 1 tab Q4H PRN Administration Pain Rated 4-6 Albuterol 2.5 mg 04/17/23 11:23 Albuterol Sulfate Neb 2.5 Mg/3 Ml Inh INHALATION Q6HRT PRN Shortness Of Breath Albuterol/Ipratropium 3 ml 04/25/23 14:00 04/26/23 09:22 Ipratropium 0.5 Mg/Albuterol Sulfate 2.5 Mg Ampul.Neb 3 Ml INHALATION 3 ml Q6HRT ANNE Administration Alprazolam 0.5 mg 04/15/23 09:00 04/25/23 20:57 Alprazolam (*Crx) 0.5 Mg Tablet PO 0.5 mg QID ANNE Administration Ascorbic Acid 500 mg 04/15/23 09:00 04/25/23 10:54 Ascorbic Acid 500 Mg Tablet PO 500 mg DAILY ANNE Administration Ciprofloxacin 500 mg 04/23/23 12:30 04/25/23 20:57 Ciprofloxacin 500 Mg Tab PO 04/29/23 21:01 500 mg Q12HR ANNE Administration Enoxaparin Sodium 40 mg 04/23/23 09:00 04/25/23 11:30 Enoxaparin 40 Mg/0.4 Ml Syringe SUB-Q 40 mg DAILY ANNE Administration Escitalopram Oxalate 15 mg 04/15/23 21:00 04/25/23 20:57 Escitalopram Oxalate 5 Mg Tablet PO 15 mg HS [facility] Administration Fentanyl Citrate 25 mcg 04/22/23 15:47 04/26/23 12:18 Fentanyl Citrate Inj (*Crx) 100 Mcg/2 Ml Vial IV PUSH 25 mcg Q2M PRN Administration Pain Fentanyl Citrate 25 mcg 04/26/23 12:04 Fentanyl Citrate Inj (*Crx) 100 Mcg/2 Ml Vial IV PUSH Q2M PRN Pain Ferrous Sulfate 325 mg 04/15/23 12:00 04/25/23 13:31 Ferrous Sulfate [address] PO 325 mg DAILY@1200 [facility] Administration Finasteride 5 mg 04/15/23 09:00 04/25/23 10:54 Finasteride 5 Mg Tablet PO 5 mg QAM [facility] Administrati
--- NOTE | 2023-04-26 16:06 | SUR.PHASEI ---
1605 PATIENT MEETS ANESTHESIA DISCHARGE CRITERIA. AWAITING ROOM ON IMU. ON HOLD.
--- NOTE | 2023-04-26 17:46 | W.PM.PROC2 ---
Procedure Note - Detailed Date of Procedure 04/26/23 Pre-op Diagnosis UTI, Wound Infection, Wound to Buttock Post-op Diagnosis Same Procedure Performed Sharp scissor debridement of subcutaneous tissue and muscle from sacral decubitus ulcer with wound VAC change ( [id number], 216 sq cm ) Surgeon Porfirio Brown MD Production Scheduler Vero Bird, [facility] Anesthesia General Indications Patient is 63 year old gentleman who had a very large necrotic wound in the sacral region as well as the bilateral inner buttocks and extending to the perianal region. He has undergone 2 prior debridements of the wound and application of wound VAC as well as the prior diverting colostomy. Is been 4 days since he has had a wound VAC change who presents now to the operating room to wash out the wound and debride any more nonviable tissue and change the wound VAC. Findings The wound VAC was keeping suction. There was no feculent staining of the tissue or any feculent material from the stapled off sigmoid colon. The wound did contract and measured [id number]. Previously it measured [id number]. There was a relatively good base of granulation tissue on the more superficial portions of the wound but there was still some necrotic tissue deeper parts of the wound over the sacrum. After debridement of the necrotic tissue it appeared that the necrotic tissue extended all the way down to the periosteum of the sacrum. The total surface area covered by the wound VAC dressing now measured 216 sq cm. Description of Procedure After informed consent was obtained patient brought to the operating room was placed under general endotracheal anesthesia and placed prone on operating table. Care was taken to make sure all the pressure points were well padded. Time-out was then performed identifying the patient as well as procedure to be performed. He was already on oral antibiotics. I removed the wound VAC as well as a piece of DuoDerm off of the perianal region. This revealed the wound to have fairly good granulation tissue over about 50% of the wound in the more superficial areas. The deepest part of the wound overlying the sacrum still had some necrotic subcutaneous and muscle tissue which was sharply debrided with scissors. The dissection was carried all the way down to the periosteum of the sacrum. I then irrigated out the wound sterile saline solution. He had good bleeding from all viable granulation tissue. I measured the wound and it was now [id number]. There was contraction and lateral sides of the wound but the vertical limb the wound was the same as the previous trip to the operating room. I then proceeded to place a wound VAC into the wound. Four pieces of black foam sponge was placed into the wound. A piece of DuoDerm was placed over very superficial wound on the inner aspect of the right thigh. Unclear adhesive dressings were placed over the black foam until he get a good seal with the wound VAC. the wound VAC was lateralized to the right lateral hip area so as to not have the suction pad on the buttock area. There is cleaned and the patient was turned back to supine position on the bed. He was then taken to recovery for postoperative care. The patient tolerated the procedure well no complications. All sponges, needles, and instrument counts were correct at the end procedure. EBL was _20__cc. The patient was awakened and taken to recovery in stable and satisfactory condition. Estimated Blood Loss 20 Urine Output 1,000 Drains No Packing Yes ( Wound VAC dressing changed. Area wound VAC was 216 sq cm.) Pathology None sent Complications No immediate complications Condition Stable Disposition PACU [facility] Billing Surgery - Charge Forward: Surgery Billing
[2023-04-26] MEDS: PREGABALIN (*CRX) 75 MG CAPSULE 150 MG PO (18:08)
[2023-04-26] MEDS: ALPRAZolam (*CRX) 0.5 MG TABLET PO ×2 (18:09→21:05)
[2023-04-26] MEDS: POTASSIUM CHLORIDE 20 MEQ PACKET (FOR LIQUID) 40 MEQ PO (18:24)
--- NOTE | 2023-04-26 18:38 | PC.NURSE ---
Received report from [facility] Nurse Lizy at 1720. Received report from PACU nurse Kena at 1730. Pt bought to the unit via specialty bed at 1740. Settled pt into new room.
[2023-04-26] MEDS: MORPHINE SULFATE (*CRX) 4 MG/ML INJ IV PUSH (21:04)
[2023-04-26] MEDS: traZODone HCL 50 MG TABLET 150 MG PO (21:05)
[2023-04-26] MEDS: ESCITALOPRAM OXALATE 5 MG TABLET 15 MG PO (21:05)
[2023-04-26] MEDS: CIPROFLOXACIN 500 MG TAB PO (21:15)
[2023-04-27] VITALS (25 sets, daily range): BP systolic 70–155; BP diastolic 37–84; PULSE 66–77; RESP 16–20; TEMP 36.3–36.8; O2SAT 94–99
[2023-04-27] MEDS: oxyCODONE HCL (*CRX) 5 MG TAB IR 10 MG PO ×5 (00:07→23:01)
[2023-04-27] MEDS: ALTEPLASE 2 MG VIAL (CATHFLO) IV PUSH (00:09)
[2023-04-27 05:19] LABS: Basophils Percent Auto 0.2 % (0.2-1.2); Eosinophils Percent Auto 0.1 % (0-4.4); Hematocrit 34.7 % (42.0-52.0); Hemoglobin 10.7 g/dL (14.0-18.0); Immature Granulocyte Absolute 0.33 K/mm3 (0.00-0.031); Immature Granulocyte Percent A 2.7 % (0-0.5); Lymphocytes Absolute Auto 0.92 K/mm3 (0.9-3.2); Lymphocytes Percent Auto 7.5 % (18.3-44.2); Mean Corpuscular HGB Conc 30.8 g/dl (32-36); Mean Corpuscular Hemoglobin 28.3 pg (26-34); Mean Corpuscular Volume 91.8 fl (80-100); Mean Platelet Volume 9.3 fl (7.4-10.4); Monocytes Absolute Auto 0.8 K/mm3 (0.1-0.6); Monocytes Percent Auto 6.6 % (2.6-8.5); Neutrophils Absolute Auto 10.1 K/mm3 (1.3-6.7); Neutrophils Percent Auto 82.9 % (45.5-73.1); Platelet Count Result 479 k/mm3 (150-375); Red Blood Count 3.78 M/mm3 (4.6-6.20); Red Cell Distribution Width 15.3 % (11.5-14.5); White Blood Count 12.2 K/mm3 (4.5-10.0)
[2023-04-27 05:25] LABS: Alanine Aminotransferase 13 U/L (6-50); Albumin Level 3.1 g/dL (3.5-5.1); Alkaline Phosphatase 147 U/L (38-126); Anion Gap 5 mmol/L (8-16); Aspartate Amino Transferase 27 U/L (17-59); Bilirubin,Total 0.4 mg/dL (0.2-1.3); Blood Urea Nitrogen 22 mg/dL (9-20); Calcium 9.1 mg/dL (8.4-10.2); Carbon Dioxide 27 mmol/L (22-30); Chloride 105 mmol/L (98-107); Estimated CRCL calculation 64 ml/min; Estimated Glomerular Filt Rate 56; Glucose 148 mg/dL (65-110); Potassium 5.4 mmol/L (3.4-5.0); Sodium 137 mmol/L (137-145)
[2023-04-27] MEDS: metroNIDAZOLE 500 MG TABLET PO ×3 (05:41→20:59)
[2023-04-27] MEDS: CENTRAL LINE FLUSH 10 ML IV PUSH ×3 (05:42→20:59)
[2023-04-27] MEDS: ALPRAZolam (*CRX) 0.5 MG TABLET PO ×4 (08:39→20:58)
[2023-04-27] MEDS: FINASTERIDE 5 MG TABLET PO (08:40)
[2023-04-27] MEDS: ZINC SULFATE 220 MG CAPSULE PO (08:40)
[2023-04-27] MEDS: PREGABALIN (*CRX) 75 MG CAPSULE 150 MG PO ×3 (08:40→17:32)
[2023-04-27] MEDS: THERAPEUTIC MULTIVITAMINS/MINERALS TAB (*BKC) 1 TABLET PO (08:40)
[2023-04-27] MEDS: PARoxetine 10 MG TABLET 30 MG PO (08:40)
[2023-04-27] MEDS: SIMVASTATIN 20 MG TABLET PO (08:40)
[2023-04-27] MEDS: ENOXAPARIN 40 MG/0.4 ML SYRINGE SUB-Q (08:46)
[2023-04-27] MEDS: IPRATROPIUM 0.5 MG/ALBUTEROL SULFATE 2.5 MG AMPUL.NEB 3 ML INHALATION ×3 (08:56→19:27)
[2023-04-27] MEDS: ASCORBIC ACID 500 MG TABLET PO (10:17)
[2023-04-27] MEDS: CIPROFLOXACIN 500 MG TAB PO ×2 (10:17→20:58)
--- NOTE | 2023-04-27 10:49 | PCNFU ---
Nutrition Follow-Up Complete: Increased protein needs as related to wounds as evidenced by pressure ulcer reported. Goal:Adequate Intake of at least 75% of meals/supplements Pt current nutrition is Heart healthy. Nutrition recommendation: Resume nutrition supplements of Ensure compact and SHAYNA BID Last recorded weight is 113.6 kg. Bowel Motility: +BM 04/26 Labs Reviewed: Hgb:10.7, HCT:34.7, Alb:3.1, K:5.4, GFR:56, BUN:22, Glu:148 Meds Noted: lovenox, KCL Skin: stage III to buttocks Additional Notes: Pt restarted on heart healthy diet, intake varied 25-100% of meals. Recommend to restart Ensure compact and SHAYNA BID for wound healing. RD will monitor weight, labs, skin, oral intake, meds every 5 days.
[2023-04-27] MEDS: FERROUS SULFATE 325 MG TABLET DR PO (12:29)
[2023-04-27] MEDS: TIMOLOL MALEATE 0.5% OP SOLN 5 ML BOTTLE 1 DROP EACH EYE (12:30)
--- NOTE | 2023-04-27 13:53 | PM.PNGS ---
Progress Note: A&P Assessment and Plan (1) Decubitus ulcer of sacral region, unstageable: Code(s): L89.150 - Pressure ulcer of sacral region, unstageable Status: Acute Assessment and Plan: Patient underwent excisional debridement in the OR again yesterday and his wound is progressing well s/p laparoscopic descending end diverting colostomy. Ostomy functioning well. Appetite improving, continue supplements. Dr. Brown plans to take the patient back to the OR for placement of allograft to the sacral wound and then reapplying the wound vac. This wound vac will then need to be in place fo 5 days post-op prior to removal. If the wound is healing after that point, then could consider transferring to the LTAC facility. Plan I have discussed the patient's case and plan of care with Dr. Brown. Subjective Subjective Date/Time Seen: 04/27/23 13:53 Interval history: This is a 63 year old man with a sacral decubitus ulcers who has had excisional debridement in the OR x 3 with the last being yesterday and s/p Laparoscopic descending end diverting colostomy placement on 04/19/23. Chart reviewed since last seen. Patient is seen with his mother at the bedside. He and his mother just had ostomy teaching from wound care nurses. He is doing well with no acute events overnight. No specific complaints. Appetite better than when I saw him last week. He is eating > 50% of meals and taking in his supplements per the patient. He has Ensure and Venkatesh. Exam Const: General: comfortable and no acute distress Orientation/consciousness: patient oriented x3 GI: Inspection: non-distended and incision (trocar incisions healing well, no erythema or drainage) GI Palp: Yes Soft to palpation and No Tenderness to palpation present (GI) Auscultation: normal bowel sounds Other: Colostomy is viable and not retracted. Good output of stool. Skin: Other: Wound VAC in place on large sacral decubitus ulcer. Objective Data Vital Signs Vital Signs: Vital Signs - 24 hr 04/26/23 14:35 04/26/23 14:50 04/26/23 15:00 Temperature 97.0 F L Pulse Rate 73 73 Respiratory Rate 18 16 Blood Pressure 109/63 117/66 Pulse Oximetry 100 100 Oxygen Delivery Simple Face Mask Simple Face Mask Room Air Oxygen Flow Rate 6 6 04/26/23 15:05 04/26/23 15:20 04/26/23 15:35 Temperature Pulse Rate 75 75 75 Respiratory Rate 18 18 16 Blood Pressure 116/68 139/79 139/76 Pulse Oximetry 96 92 92 Oxygen Delivery Room Air Room Air Room Air Oxygen Flow Rate 04/26/23 15:50 04/26/23 16:05 04/26/23 16:35 Temperature Pulse Rate 73 74 74 Respiratory Rate 14 12 16 Blood Pressure 136/73 141/77 H 146/80 H Pulse Oximetry 89 L 97 96 Oxygen Delivery Nasal Cannula Nasal Cannula Nasal Cannula Oxygen Flow Rate 2 2 2 04/26/23 19:28 04/26/23 20:00 04/26/23 21:10 Temperature 97.9 F Pulse Rate 79 76 Respiratory Rate 18 18 Blood Pressure 110/53 L Pulse Oximetry 94 92 Oxygen Delivery Nasal Cannula Oxygen Flow Rate 2 04/26/23 21:15 04/26/23 21:26 04/26/23 20:00 Temperature Pulse Rate 76 71 77 Respiratory Rate 18 Blood Pressure Pulse Oximetry 92 Oxygen Delivery Room Air Oxygen Flow Rate 04/26/23 22:00 04/26/23 23:40 04/27/23 00:15 Temperature 96.7 F L 97.4 F L Pulse Rate 77 74 Respiratory Rate 18 Blood Pressure 114/67 Pulse Oximetry 94 Oxygen Delivery Oxygen Flow Rate 04/27/23 00:00 04/27/23 00:00 04/27/23 02:00 Temperature Pulse Rate 72 67 Respiratory Rate Blood Pressure Pulse Oximetry 94 Oxygen Delivery Nasal Cannula Oxygen Flow Rate 2 04/27/23 03:32 04/27/23 03:22 04/27/23 04:00 Temperature 97.8 F Pulse Rate 66 69 Respiratory Rate 18 Blood Pressure 107/65 Pulse Oximetry 95 95 Oxygen Delivery Nasal Cannula Oxygen Flow Rate 2 04/27/23 06:00 04/27/23 07:44 04/27/23 08:57 Temperature 97.8 F Pulse Rate 69 70 Respiratory Rate 18 Blood Pr
--- NOTE | 2023-04-27 14:20 | P.PNAN_ITS ---
Anes - Prog Note Post-Op Date/Time: 04/27/23 14:20 Cardiovascular status: normal Respiratory status: normal Airway patency: baseline Mental status: baseline Post-Op hydration status: normal Vital Signs: Last Vital Signs Temp 36.3 C L 04/27/23 11:18 Pulse 77 04/27/23 14:00 Resp 18 04/27/23 11:18 BP 132/65 04/27/23 11:18 Pulse Ox 99 04/27/23 11:18 O2 Del Method Room Air 04/27/23 12:00 O2 Flow Rate 2 04/27/23 03:32 FiO2 24 04/25/23 20:00 Pain Score (VAS): 0/10 I/O: Intake & Output 04/26/23 04/27/23 04/27/23 23:59 07:59 15:59 Intake Total 100 325 240 Output Total 1500 1000 Balance -1400 -675 240 Laboratory Tests 04/27/23 04:58 04/27/23 04:58 04/27/23 04:58 WBC 12.2 H RBC 3.78 L Hgb 10.7 L Hct 34.7 L MCV 91.8 MCH 28.3 MCHC 30.8 L RDW 15.3 H Plt Count 479 H MPV 9.3 Immature Gran % (Auto) 2.7 H Neut % (Auto) 82.9 H Lymph % (Auto) 7.[address] [place] % (Auto) 6.6 Eos % (Auto) 0.1 Baso % (Auto) 0.2 Lymph # (Auto) 0.92 [facility] # (Auto) 0.8 H Eos # (Auto) 0.0 Baso # (Auto) 0.0 Abs Immat Gran (auto) 0.33 H Absolute Neuts (auto) 10.1 H Absolute Nucleated RBC 0.0 Nucleated RBC % 0.0 Sodium 137 Potassium 5.4 H Chloride 105 Carbon Dioxide 27 Anion Gap 5 L BUN 22 H Creatinine 1.30 Estim Creat Clear Calc 64 Estimated GFR 56 L Glucose 148 H Calcium 9.1 Magnesium 2.0 Total Bilirubin 0.4 AST 27 ALT 13 Alkaline Phosphatase 147 H Total Protein 7.0 Albumin 3.1 L Post-procedural complaints: none Patient Feedback: Patient satisfied with anesthetic care.
--- NOTE | 2023-04-27 14:55 | PM.IMPN ---
Progress Note: A&P Assessment and Plan (1) Wound infection: Code(s): T14.8XXA - Other injury of unspecified body region, initial encounter; L08.9 - Local infection of the skin and subcutaneous tissue, unspecified Status: Acute (2) Acute UTI: Code(s): N39.0 - Urinary tract infection, site not specified Status: Acute (3) Sepsis: Code(s): A41.9 - Sepsis, unspecified organism Status: Acute Plan 63-year-old male with past medical history significant for alcohol abuse, chronic kidney disease, chronic pain syndrome, with anxiety, gout sleep apnea on CPAP, peripheral neuropathy, urinary retention, chronic Durant catheter.? Patient was brought to the emergency room due to infected wound and lethargy. .Preliminary workup was significant for subcutaneous soft tissue gas in the buttock area. General surgery has been consulted for his large sacral decubitus ulcer infected. He underwent excisional debridement on 04/15/2023 followed by diverting colostomy placement on 04/19/2023 did do continued contamination of wound with fecal material. Repeat debridement done on 04/22/2023. One consult growing Pseudomonas aeruginosa 04/15 Blood culture positive on 04/14/2023 with Staph epidermidis resistant to oxacillin. Repeat blood cultures 04/17/2023 growth to date UTI urine culture no growth Failure to thrive with recurrent admissions Stage IV sacral decubitus ulcer with infection no exposure of sacrum. Will switch to Cipro and Flagyl oral for 7 more days as discussed with ID. Wound VAC change and another debridement 04/26/2023. Mention of wound going all the way involving periosteal of sacrum. Will continue oral antibiotics as ordered WBC count improving. Continue wound VAC further recommendation from surgical team Chronic pain syndrome YOSEPH AHI of 96.6 suggestive of severe obstructive sleep apnea in past. Was started on CPAP however he stopped using them. Needs outpatient sleep study Acute hypercapnic respiratory failure on admission ABG showed hypoxemic respiratory failure with tachycardia and tachypnea on 5 L oxygen. CTA showed no pulmonary embolism small pleural effusion. Found to have a RSV. Hypercapnia likely related to sedation improved with noninvasive BiPAP ventilatory support which has been off pulmonary was consulted during the hospital stay Acute blood loss anemia hemoglobin 9.9 on 04/14 postoperatively due to 6.9 needing blood transfusion continue to monitor Hypertension Code status DNR DNI History of neurocognitive disorder Depression anxiety with history of suicide attempt 03/20 with Tylenol Morbid obesity BPH with urinary retention and possible neurogenic bladder and recurrent hydronephrosis and BOAZ Gout DVT prophylaxis will start Lovenox Cervical disc disorder with myelopathy status post surgical intervention C4-C7 decompression and C3-T1 posterolateral fusion 12/16/2022 done at [place] [facility] Subjective Date/time seen: 04/27/23 14:55 Interval history: Patient underwent debridement yesterday. Complains of left ear fullness no other complaints Review of Systems Review of Systems: All systems reviewed & are unremarkable except as noted in HPI and below Exam Narrative: GENERAL: Pleasant, in no acute distress. Well-nourished. - HENT: Moist mucous membranes. - LUNGS: Coarse breath sound bilaterally, - CARDIOVASCULAR: Regular rate and rhythm. No murmur. No JVD. - ABDOMEN: Soft, non-tender and non-distended. No palpable masses. - EXTREMITIES: No edema. Peripheral pulses 2+. Non-tender. - NEUROLOGIC: No focal neurological deficits. CN II-XII grossly intact. - PSYCHIATRIC: Awake, Alert and oriented x 3. Appropriate mood and affect. - SKIN: Status post debridement wound VAC in place - LYMPH: No cervical lymphadenopathy. Objective Data Vital Signs Vital Signs: Vital Signs - 24 hr 04/26/23 15:00 04/26/23 15:05 04/26/23 15:20 Temperature Pulse Rate 75 75 Respiratory Rate
[2023-04-27] MEDS: traZODone HCL 50 MG TABLET 150 MG PO (20:57)
[2023-04-27] MEDS: HYDROcodone/acetaminophen (*CRX) 5-325 MG TABLET 1 TAB PO (20:58)
[2023-04-27] MEDS: ESCITALOPRAM OXALATE 5 MG TABLET 15 MG PO (20:58)
[2023-04-28] VITALS (19 sets, daily range): BP systolic 101–116; BP diastolic 46–63; PULSE 63–144; RESP 16–20; TEMP 36.3–36.8; O2SAT 90–98
[2023-04-28] MEDS: IPRATROPIUM 0.5 MG/ALBUTEROL SULFATE 2.5 MG AMPUL.NEB 3 ML INHALATION ×4 (01:01→19:15)
[2023-04-28] MEDS: metroNIDAZOLE 500 MG TABLET PO ×3 (06:14→20:58)
[2023-04-28] MEDS: oxyCODONE HCL (*CRX) 5 MG TAB IR 10 MG PO ×4 (06:15→23:59)
[2023-04-28 06:21] LABS: Basophils Absolute Auto 0.1 K/mm3 (0.0-0.1); Basophils Percent Auto 0.5 % (0.2-1.2); Eosinophils Absolute Auto 0.4 K/mm3 (0-0.3); Eosinophils Percent Auto 2.8 % (0-4.4); Hematocrit 32.4 % (42.0-52.0); Hemoglobin 9.9 g/dL (14.0-18.0); Immature Granulocyte Absolute 0.16 K/mm3 (0.00-0.031); Immature Granulocyte Percent A 1.3 % (0-0.5); Lymphocytes Absolute Auto 3.14 K/mm3 (0.9-3.2); Lymphocytes Percent Auto 25.1 % (18.3-44.2); Mean Corpuscular HGB Conc 30.6 g/dl (32-36); Mean Corpuscular Volume 91.8 fl (80-100); Mean Platelet Volume 9.5 fl (7.4-10.4); Monocytes Absolute Auto 0.9 K/mm3 (0.1-0.6); Monocytes Percent Auto 7.3 % (2.6-8.5); Neutrophils Absolute Auto 7.9 K/mm3 (1.3-6.7); Platelet Count Result 403 k/mm3 (150-375); Red Blood Count 3.53 M/mm3 (4.6-6.20); Red Cell Distribution Width 15.8 % (11.5-14.5); White Blood Count 12.5 K/mm3 (4.5-10.0)
[2023-04-28 06:33] LABS: Alanine Aminotransferase 12 U/L (6-50); Albumin Level 3.1 g/dL (3.5-5.1); Alkaline Phosphatase 135 U/L (38-126); Anion Gap 7 mmol/L (8-16); Aspartate Amino Transferase 31 U/L (17-59); Bilirubin,Total 0.4 mg/dL (0.2-1.3); Blood Urea Nitrogen 34 mg/dL (9-20); Carbon Dioxide 28 mmol/L (22-30); Chloride 103 mmol/L (98-107); Estimated CRCL calculation 60 ml/min; Estimated Glomerular Filt Rate 51; Glucose 93 mg/dL (65-110); Magnesium 1.8 mg/dL (1.6-2.3); Potassium 4.6 mmol/L (3.4-5.0); Sodium 138 mmol/L (137-145)
[2023-04-28] MEDS: CENTRAL LINE FLUSH 10 ML IV PUSH ×3 (06:35→20:58)
[2023-04-28] MEDS: POTASSIUM CHLORIDE 20 MEQ PACKET (FOR LIQUID) 40 MEQ PO ×2 (10:25→17:52)
[2023-04-28] MEDS: PREGABALIN (*CRX) 75 MG CAPSULE 150 MG PO ×3 (10:26→17:51)
[2023-04-28] MEDS: ASCORBIC ACID 500 MG TABLET PO (10:26)
[2023-04-28] MEDS: ALPRAZolam (*CRX) 0.5 MG TABLET PO ×4 (10:26→20:57)
[2023-04-28] MEDS: THERAPEUTIC MULTIVITAMINS/MINERALS TAB (*BKC) 1 TABLET PO (10:27)
[2023-04-28] MEDS: ZINC SULFATE 220 MG CAPSULE PO (10:27)
[2023-04-28] MEDS: CIPROFLOXACIN 500 MG TAB PO ×2 (10:27→20:58)
[2023-04-28] MEDS: FINASTERIDE 5 MG TABLET PO (10:27)
[2023-04-28] MEDS: PARoxetine 10 MG TABLET 30 MG PO (10:27)
[2023-04-28] MEDS: ENOXAPARIN 40 MG/0.4 ML SYRINGE SUB-Q (10:28)
[2023-04-28] MEDS: SIMVASTATIN 20 MG TABLET PO (10:28)
[2023-04-28] MEDS: TIMOLOL MALEATE 0.5% OP SOLN 5 ML BOTTLE 1 DROP EACH EYE (10:28)
[2023-04-28] MEDS: FERROUS SULFATE 325 MG TABLET DR PO (12:45)
--- NOTE | 2023-04-28 18:37 | PM.IMPN ---
Progress Note: A&P Assessment and Plan (1) Wound infection: Code(s): T14.8XXA - Other injury of unspecified body region, initial encounter; L08.9 - Local infection of the skin and subcutaneous tissue, unspecified Status: Acute Assessment and Plan: Patient brought to the emergency room because of lethargy and concerns for infected sacral wound. Pelvic CT showed subcu fat stranding and soft tissue gas in the buttocks consistent with infection. No abscess no evidence of osteomyelitis. General surgery consulted. Blood cultures growing Staph epidermidis 1 bottle. Repeat blood cultures were negative. Possibly a contaminant although difficult to tell. White count was elevated on admission 13K. Wound culture growing Pseudomonas and Bacteroides. Patient underwent debridement 04/15, 04/22 and 04/26. Wound VAC was placed. Patient underwent diverting colostomy on 04/19 to assist with healing. Continue Flagyl and ciprofloxacin (2) Sepsis: Code(s): A41.9 - Sepsis, unspecified organism Status: Acute Assessment and Plan: Sepsis present on admission with leukocytosis, lethargy and tachycardia. Related to infected sacral decubitus ulcer As above. (3) Chronic kidney disease: Code(s): N18.9 - Chronic kidney disease, unspecified Status: Acute Assessment and Plan: Renal function running 1-1.4 range. Creatinine climbed to 1.7 here early in the hospital course but has returned to his baseline. Patient has likely as a time neurogenic bladder he will need chronic long-term indwelling catheter. Last admission patient states he left the rehab facility AMA after pulling out his Durant catheter. CT of the pelvis on admission showed diffuse bladder wall thickening and mild bilateral hydronephrosis. Durant catheter was in place at the time. Continue to monitor renal function, urine output and electrolytes. (4) Depression: Code(s): F32.A - Depression, unspecified Status: Acute Assessment and Plan: Patient with depression history of suicidal attempt 03/20 with Tylenol. History of neurocognitive disorder Mood stable. Continue Paxil and trazodone. States he is on Lexapro as well which would be unusual to be on 2 SSRIs. Stop Lexapro. Monitor mood (5) Urinary retention with incomplete bladder emptying: Code(s): R33.9 - Retention of urine, unspecified Status: Acute Assessment and Plan: As above BPH with urinary retention and possible neurogenic bladder and recurrent hydronephrosis and BOAZ Plan Hx of alcohol abuse YOSEPH - AHI of 96.6 suggestive of severe obstructive sleep apnea in past. Was started on CPAP however he stopped using them. Needs outpatient sleep study Chronic pain syndrome Cervical disc disorder with myelopathy status post surgical intervention C4-C7 decompression and C3-T1 posterolateral fusion 12/16/2022 done at [place] [facility] Acute hypercapnic respiratory failure - on admission ABG showed hypoxemic respiratory failure with tachycardia and tachypnea on 5 L oxygen. CTA showed no pulmonary embolism small pleural effusion. Found to have a RSV. Hypercapnia likely related to sedation improved with noninvasive BiPAP ventilatory support which has been off pulmonary was consulted during the hospital stay Acute blood loss anemia - hemoglobin 9.9 on 04/14 postoperatively due to 6.9 needing blood transfusion Hypertension Code status DNR DNI DVT prophylaxis will start Lovenox Subjective Date/time seen: 04/28/23 18:37 Interval history: 63yo male with CKD, YOSEPH, depression with hx of suicide attempt and HTN here for worsening wound infection. Assuming care. Chart reviewed. No CP or SOB. Pain to the sacral area but controlled with his current treatment. Eating okay. No n/v. No excessive stool output. Exam Narrative: AF 97.4 101/54 76 18 97% ra Gen - NARD Chest - CTA bilaterally, nml RR CV - RRR S1/S2 Abd - Soft, colostomy l
[2023-04-28] MEDS: SODIUM CHLORIDE 0.9% IV 1,000 ML 70 ML IV CONT (18:50)
[2023-04-28] MEDS: traZODone HCL 50 MG TABLET 150 MG PO (20:57)
[2023-04-28] MEDS: HYDROcodone/acetaminophen (*CRX) 5-325 MG TABLET 1 TAB PO (20:57)
[2023-04-28] MEDS: FLUTICASONE PROPIONATE 0.05% NA SPR 16 GM BTL (*BKC) 1 SPRAY NASAL (20:58)
[2023-04-29] VITALS (19 sets, daily range): BP systolic 95–124; BP diastolic 50–79; PULSE 61–85; RESP 12–20; TEMP 36.1–36.9; O2SAT 92–100
[2023-04-29] MEDS: IPRATROPIUM 0.5 MG/ALBUTEROL SULFATE 2.5 MG AMPUL.NEB 3 ML INHALATION (02:56)
[2023-04-29] MEDS: CENTRAL LINE FLUSH 10 ML IV PUSH ×3 (05:33→20:55)
[2023-04-29] MEDS: SODIUM CHLORIDE 0.9% IV 1,000 ML 70 ML IV CONT (05:34)
[2023-04-29 06:30] LABS: Basophils Absolute Auto 0.1 K/mm3 (0.0-0.1); Basophils Percent Auto 0.5 % (0.2-1.2); Eosinophils Absolute Auto 0.4 K/mm3 (0-0.3); Eosinophils Percent Auto 3.5 % (0-4.4); Hemoglobin 9.5 g/dL (14.0-18.0); Immature Granulocyte Absolute 0.16 K/mm3 (0.00-0.031); Immature Granulocyte Percent A 1.4 % (0-0.5); Lymphocytes Absolute Auto 3.17 K/mm3 (0.9-3.2); Mean Corpuscular HGB Conc 30.6 g/dl (32-36); Mean Corpuscular Hemoglobin 28.2 pg (26-34); Monocytes Percent Auto 8.2 % (2.6-8.5); Neutrophils Percent Auto 59.4 % (45.5-73.1); Platelet Count Result 342 k/mm3 (150-375); Red Blood Count 3.37 M/mm3 (4.6-6.20); Red Cell Distribution Width 15.9 % (11.5-14.5); White Blood Count 11.7 K/mm3 (4.5-10.0)
[2023-04-29 06:41] LABS: Albumin Level 2.8 g/dL (3.5-5.1); Anion Gap 2 mmol/L (8-16); Blood Urea Nitrogen 39 mg/dL (9-20); Carbon Dioxide 31 mmol/L (22-30); Chloride 106 mmol/L (98-107); Estimated CRCL calculation 60 ml/min; Estimated Glomerular Filt Rate 51; Glucose 92 mg/dL (65-110); Magnesium 1.6 mg/dL (1.6-2.3); Phosphorus 3.2 mg/dL (2.5-4.5); Potassium 4.7 mmol/L (3.4-5.0); Sodium 139 mmol/L (137-145)
[2023-04-29] MEDS: PARoxetine 10 MG TABLET 30 MG PO (09:53)
[2023-04-29] MEDS: ALPRAZolam (*CRX) 0.5 MG TABLET PO ×3 (09:53→20:55)
[2023-04-29] MEDS: PREGABALIN (*CRX) 75 MG CAPSULE 150 MG PO ×2 (09:54→17:24)
[2023-04-29] MEDS: CIPROFLOXACIN 500 MG TAB PO ×2 (09:54→20:55)
--- NOTE | 2023-04-29 11:46 | WPDANESEPPF ---
Anes - Initial Pre Proc Eval Procedure: Operation Date: 04/15/23 15:00 Proposed Procedures p Excisional Debridement Sacral Decubitis Ulcer - Porfirio Brown MD Operation Date: 04/19/23 14:30 Proposed Procedures p Laparoscopic End Colostomy, Possible Open - Porfirio Brown MD Operation Date: 04/22/23 15:00 Proposed Procedures p Debridement Sacral Wound, Possible Wound Vac Placement - Porfirio Brown MD Operation Date: 04/26/23 13:00 Proposed Procedures p Debridement Sacral Wound,Wound Vac Dressing Change - Porfirio Brown MD Operation Date: 04/29/23 12:00 Proposed Procedures p Debridement Sacral Wound, Wound Vac Dressing Change - Porfirio Brown MD Date/Time: 04/29/23 11:46 Surgeon: Jcarlos Mayfield MD Pre Op Diagnosis: UTI, Wound Infection, Wound to Buttock Patient Data Age: 63 Gender: M Height: 1.75 m Weight: 113.6 kg Last Vital Signs Temp 36.1 C L 04/29/23 05:21 Pulse 75 04/29/23 05:21 Resp 20 04/29/23 05:21 BP 110/59 L 04/29/23 05:21 Pulse Ox 97 04/29/23 05:21 O2 Del Method Room Air 04/29/23 10:00 O2 Flow Rate 2 04/27/23 03:32 FiO2 24 04/25/23 20:00 Allergies Allergy/AdvReac Type Severity Reaction Status Date / Time allopurinol Allergy Unknown Rash Verified 04/29/23 10:59 carbamazepine Allergy Unknown Rash Verified 04/29/23 10:59 cyclobenzaprine Allergy Unknown Rash Verified 04/29/23 10:59 diclofenac Allergy Unknown Rash Verified 04/29/23 10:59 adhesive tape Allergy Rash Verified 04/29/23 10:59 Home Medications Medication Instructions Recorded Confirmed Type paroxetine HCl 30 mg tablet 30 mg PO DAILY 09/15/22 04/14/23 History simvastatin 20 mg tablet 20 mg PO DAILY 09/15/22 04/14/23 History trazodone 150 mg tablet 150 mg PO HS 09/15/22 04/14/23 History escitalopram oxalate 10 mg tablet 15 mg PO HS #30 tabs 12/29/22 04/14/23 Rx polyethylene glycol 3350 17 gram 17 g PO DAILY #30 ea 12/29/22 04/14/23 Rx oral powder packet (Miralax) pregabalin 75 mg capsule (Lyrica) 150 mg PO TID #30 caps 12/29/22 04/14/23 Rx tamsulosin 0.4 mg capsule 0.4 mg PO QHS #30 caps 12/29/22 04/14/23 Rx timolol maleate 0.5 % eye drops 1 drp EACH EYE QAM #1 mL 12/29/22 04/14/23 Rx amlodipine 5 mg tablet (Norvasc) 5 mg PO DAILY 04/04/23 04/14/23 History finasteride 5 mg tablet (Proscar) 5 mg PO QAM #30 tabs 04/08/23 04/14/23 Rx methocarbamol 750 mg tablet 1,500 mg PO TID PRN Bladder Spasms 04/08/23 04/14/23 Rx #30 tabs alprazolam 0.5 mg tablet 0.5 mg PO QID 04/14/23 04/14/23 History ascorbic acid (vitamin C) 500 mg 500 mg PO DAILY 04/14/23 04/14/23 History tablet collagenase clostridium histo. 250 1 applic topical DAILY 04/14/23 04/14/23 History unit/gram topical ointment (Santyl) ferrous sulfate 325 mg (65 mg 325 mg PO DAILY 04/14/23 04/14/23 History iron) tablet multivitamin with minerals 1 tablet PO DAILY 04/14/23 04/14/23 History (Multiple Vitamin-Minerals tablet) oxycodone 10 mg tablet 10 mg PO Q6H 04/14/23 04/14/23 History zinc sulfate 50 mg zinc (220 mg) 50 mg PO DAILY 04/14/23 04/14/23 History tablet Laboratory Tests 04/29/23 06:24 WBC 11.7 H K/mm3 (4.5-10.0) RBC 3.37 L M/mm3 (4.6-6.20) Hgb 9.5 L g/dL (14.0-18.0) Hct 31.0 L % (42.0-52.0) MCV 92.0 fl (80-100) MCH 28.2 pg (26-34) MCHC 30.6 L g/dl (32-36) RDW 15.9 H % (11.5-14.5) Plt Count 342 k/mm3 (150-375) MPV 9.0 fl (7.4-10.4) Immature Gran % (Auto) 1.4 H % (0-0.5) Neut % (Auto) 59.4 % (45.5-73.1) Lymph % (Auto) 27.0 % (18.3-44.2) [place] % (Auto) 8.2 % (2.6-8.5) Eos % (Auto) 3.5 % (0-4.4) Baso % (Auto) 0.5 % (0.2-1.2) Lymph # (Auto) 3.17 K/mm3 (0.9-3.2) [place] # (Auto) 1.0 H K/mm3 (0.1-0.6) Eos # (Auto) 0.4 H K/mm3 (0-0.3) Baso # (Auto) 0.1 K/mm3 (0.0-0.1) Abs Immat Gran (auto) 0.16 H K/mm3 (0.00-0.031) Absolute Neuts (auto) 7.0 H K/mm3 (1.3-6.7) Absolute Nucleated RBC 0.0 K
--- NOTE | 2023-04-29 12:00 | WPDHPUPDATE1 ---
History and Physical Update Update Date/Time: 04/29/23 12:00 History and Physical has been reviewed, including an updated exam of the patient. There are NO changes in the patient's condition. Risks, benefits, and alternatives have been discussed and questions answered. Patient agrees to proceed with procedure.
--- NOTE | 2023-04-29 13:34 | PM.IMPN ---
Progress Note: A&P Assessment and Plan (1) Wound infection: Code(s): T14.8XXA - Other injury of unspecified body region, initial encounter; L08.9 - Local infection of the skin and subcutaneous tissue, unspecified Status: Acute Assessment and Plan: Patient brought to the emergency room because of lethargy and concerns for infected sacral wound. Pelvic CT showed subcu fat stranding and soft tissue gas in the buttocks consistent with infection. No abscess no evidence of osteomyelitis. General surgery consulted. Blood cultures growing Staph epidermidis 1 bottle. Repeat blood cultures were negative. Possibly a contaminant although difficult to tell. White count was elevated on admission 13K. Wound culture growing Pseudomonas and Bacteroides. Patient underwent debridement 04/15, 04/22 and 04/26. Wound VAC was placed. Patient underwent diverting colostomy on 04/19 to assist with healing. Continue Flagyl and ciprofloxacin (2) Sepsis: Code(s): A41.9 - Sepsis, unspecified organism Status: Acute Assessment and Plan: Sepsis present on admission with leukocytosis, lethargy and tachycardia. Related to infected sacral decubitus ulcer As above. (3) Chronic kidney disease: Code(s): N18.9 - Chronic kidney disease, unspecified Status: Acute Assessment and Plan: Renal function running 1-1.4 range. Creatinine climbed to 1.7 here early in the hospital course but has returned to his baseline. 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 Last admission patient states he left the rehab facility AMA after pulling out his Durant catheter. CT of the pelvis on admission showed diffuse bladder wall thickening and mild bilateral hydronephrosis. Durant catheter was in place at the time. Continue to monitor renal function, urine output and electrolytes. (4) Depression: Code(s): F32.A - Depression, unspecified Status: Acute Assessment and Plan: Patient with depression and history of suicidal attempt 03/20 with Tylenol. History of neurocognitive disorder Mood stable. Continue Paxil and trazodone. Chart states he is on Lexapro as well which would be unusual to be on 2 SSRIs. Lexapro stopped. Monitor mood. (5) Urinary retention with incomplete bladder emptying: Code(s): R33.9 - Retention of urine, unspecified Status: Acute Assessment and Plan: As above BPH with urinary retention and possible neurogenic bladder and recurrent hydronephrosis and BOAZ (6) Acute respiratory failure with hypercapnia: Code(s): J96.02 - Acute respiratory failure with hypercapnia Status: Acute Assessment and Plan: Acute hypercapnic respiratory failure on admission ABG showed hypoxemic respiratory failure with tachycardia and tachypnea on 5 L oxygen. CTA showed no pulmonary embolism but small pleural effusion. Found to have a RSV. Hypercapnia likely related to sedation improved with noninvasive BiPAP ventilatory support pulmonary was consulted during the hospital stay Weaned off bipap. Refusing bipap now for YOSEPH treatment. Follow Plan Hx of alcohol abuse YOSEPH - AHI of 96.6 suggestive of severe obstructive sleep apnea in past. Auto-PAP ordered but patient refusing. Chronic pain syndrome - on scheduled pain medications. Cervical disc disorder with myelopathy - s/p surgical C4-C7 decompression and C3-T1 posterolateral fusion 12/16/2022 done at [place] - [facility] Acute blood loss anemia - hemoglobin 9.9 on 04/14 postoperatively due to 6.9 needing blood transfusion Hypertension - Patient's blood pressure was reviewed on 04/29. Blood pressure remains well controlled. Will continue to monitor Code status - DNR/DNI DVT prophylaxis - Lovenox Subjective Date/time seen: 04/29/23 13:34 Interval history: 63yo male with CKD, YOSEPH, depression with hx of suicide attempt and HTN here for worsening
[2023-04-29] MEDS: LACTATED RINGERS 1,000 ML 30 ML IV CONT (13:51)
[2023-04-29] MEDS: fentaNYL CITRATE INJ (*CRX) 100 MCG/2 ML VIAL 25 MCG IV PUSH ×4 (14:34→14:40)
[2023-04-29] MEDS: ZINC SULFATE 220 MG CAPSULE PO (15:41)
[2023-04-29] MEDS: HYDROcodone/acetaminophen (*CRX) 5-325 MG TABLET 1 TAB PO ×2 (15:42→20:55)
[2023-04-29] MEDS: metroNIDAZOLE 500 MG TABLET PO ×2 (15:43→20:55)
[2023-04-29] MEDS: FINASTERIDE 5 MG TABLET PO (15:43)
[2023-04-29] MEDS: ASCORBIC ACID 500 MG TABLET PO (15:43)
[2023-04-29] MEDS: SIMVASTATIN 20 MG TABLET PO (15:43)
[2023-04-29] MEDS: THERAPEUTIC MULTIVITAMINS/MINERALS TAB (*BKC) 1 TABLET PO (15:43)
[2023-04-29] MEDS: TIMOLOL MALEATE 0.5% OP SOLN 5 ML BOTTLE 1 DROP EACH EYE (15:44)
[2023-04-29] MEDS: ENOXAPARIN 40 MG/0.4 ML SYRINGE SUB-Q (15:44)
[2023-04-29] MEDS: oxyCODONE HCL (*CRX) 5 MG TAB IR 10 MG PO (18:35)
--- NOTE | 2023-04-29 19:28 | W.PM.PROC2 ---
Procedure Note - Detailed Date of Procedure 04/29/23 Pre-op Diagnosis UTI, Wound Infection, Wound to Buttock Post-op Diagnosis Same Procedure Performed Sharp scissor debridement of muscle and subcutaneous tissue from sacral decubitus ulcer with wound VAC change. 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 He has had multiple serial debridements of the wound and a diverting end colostomy. She presents for another evaluation of the wound with some debridement and change his wound VAC. Findings The wound continues to improve with some less nonviable tissue being removed and debrided each time. Small amount of nonviable subcutaneous tissue and muscle was removed sharply with scissors today. The wound is val and there is good granulation base starting over about 50% of the wound. The larger part of the wound which is deeper now measures [id number]. There is a much more superficial area on the left inner buttock region which is about 8x4cm with no depth as there was good granulation tissue up to the edges of the skin. No stool contamination is noted in the wound. In the deepest part of the wound periosteum of the sacrum and so clinically the patient has osteomyelitis. Description of Procedure After informed consent was obtained patient brought to the operating room where he was placed under general endotracheal anesthesia on the bed and turned to the prone position on operating table. The previous wound VAC was removed. The lower back, sacrum, buttock and perianal regions were then prepped and draped usual sterile fashion. Time-out was performed correctly identifying the patient as well as procedure to be performed. First started by irrigating out the wound and removing the Betadine from the prep. Multiple intraoperative for photographs were then obtained for the medical record. I then proceeded to perform sharp debridement with a scissor of small amount of muscle tissue and subcutaneous tissue from the left gluteal muscle. This tissue appeared to be nonviable. It was debrided back to the small amount of bleeding from the muscle tissue. That tissue was discarded. The remaining part of the wound was cleaned of any necrotic tissue. The wound does extend down to the periosteum of the underlying sacrum and so the patient does have clinical osteomyelitis. There is good granulation tissue to about 50% of the wound. On the left medial buttock region that portion the wound is now very superficial with granulation tissue coming up to the skin and the wound in that portion measures about 8x4cm. The larger deepest portion of the wound measures [id number] for a total of 180 sq cm. That part of the wound is packed with a new wound VAC utilizing black sponge. Clear adhesive dressings were placed over the black sponge and the wound VAC was lateralized to the left hip or the suction pad was placed on to obtain a good seal without any air leak. In the superficial portion of the wound which had no doubt we placed pieces of DuoDerm. There is then cleaned in the procedure was terminated. The patient tolerated the procedure well no complications. All sponges, needles, and instrument counts were correct at the end procedure. EBL was _20__cc. The patient was awakened and taken to recovery in stable and satisfactory condition. Implants None Estimated Blood Loss 20 Urine Output 1,000 Packing Yes ( Black foam wound VAC covering wound that was [id number] (180 sq cm)) Pathology None sent Complications No immediate complications Condition Stable Disposition PACU [facility] Billing Surgery - Charge Forward: Surgery Billing
[2023-04-29] MEDS: traZODone HCL 50 MG TABLET 150 MG PO (20:54)
[2023-04-29] MEDS: FLUTICASONE PROPIONATE 0.05% NA SPR 16 GM BTL (*BKC) 1 SPRAY NASAL (20:55)
[2023-04-30] VITALS (10 sets, daily range): BP systolic 90–108; BP diastolic 44–86; PULSE 71–90; RESP 14–18; TEMP 36.3–37.1; O2SAT 93–100
[2023-04-30] MEDS: oxyCODONE HCL (*CRX) 5 MG TAB IR 10 MG PO ×2 (00:25→05:12)
[2023-04-30] MEDS: CENTRAL LINE FLUSH 10 ML IV PUSH ×3 (05:12→21:14)
[2023-04-30] MEDS: metroNIDAZOLE 500 MG TABLET PO ×3 (05:12→21:13)
[2023-04-30 05:28] LABS: Basophils Absolute Auto 0.1 K/mm3 (0.0-0.1); Basophils Percent Auto 0.4 % (0.2-1.2); Eosinophils Absolute Auto 0.4 K/mm3 (0-0.3); Eosinophils Percent Auto 2.6 % (0-4.4); Hematocrit 30.8 % (42.0-52.0); Hemoglobin 9.4 g/dL (14.0-18.0); Immature Granulocyte Absolute 0.17 K/mm3 (0.00-0.031); Immature Granulocyte Percent A 1.2 % (0-0.5); Lymphocytes Absolute Auto 2.77 K/mm3 (0.9-3.2); Lymphocytes Percent Auto 20.3 % (18.3-44.2); Mean Corpuscular HGB Conc 30.5 g/dl (32-36); Mean Corpuscular Hemoglobin 28.1 pg (26-34); Mean Corpuscular Volume 92.2 fl (80-100); Mean Platelet Volume 9.7 fl (7.4-10.4); Monocytes Absolute Auto 1.2 K/mm3 (0.1-0.6); Monocytes Percent Auto 8.7 % (2.6-8.5); Neutrophils Absolute Auto 9.1 K/mm3 (1.3-6.7); Neutrophils Percent Auto 66.8 % (45.5-73.1); Platelet Count Result 353 k/mm3 (150-375); Red Blood Count 3.34 M/mm3 (4.6-6.20); Red Cell Distribution Width 16.1 % (11.5-14.5); White Blood Count 13.7 K/mm3 (4.5-10.0)
[2023-04-30 05:45] LABS: Alanine Aminotransferase 13 U/L (6-50); Albumin Level 2.7 g/dL (3.5-5.1); Alkaline Phosphatase 112 U/L (38-126); Anion Gap 4 mmol/L (8-16); Aspartate Amino Transferase 30 U/L (17-59); Bilirubin,Total 0.4 mg/dL (0.2-1.3); Blood Urea Nitrogen 39 mg/dL (9-20); Calcium 8.8 mg/dL (8.4-10.2); Carbon Dioxide 28 mmol/L (22-30); Chloride 107 mmol/L (98-107); Estimated CRCL calculation 64 ml/min; Estimated Glomerular Filt Rate 56; Glucose 97 mg/dL (65-110); Magnesium 1.6 mg/dL (1.6-2.3); Potassium 4.2 mmol/L (3.4-5.0); Sodium 139 mmol/L (137-145)
[2023-04-30 06:50] LABS: Folic Acid 10.2 ng/mL (2.76->20)
--- NOTE | 2023-04-30 07:20 | WPDANESPN ---
Anes - Prog Note Post-Op Date/Time: 04/30/23 07:20 Cardiovascular status: normal Respiratory status: normal Airway patency: baseline Mental status: baseline Post-Op hydration status: normal Vital Signs: Last Vital Signs Temp 97.6 F 04/30/23 04:47 Pulse 75 04/30/23 04:47 Resp 18 04/30/23 04:47 BP 102/47 L 04/30/23 04:47 Pulse Ox 97 04/30/23 04:47 O2 Del Method Room Air 04/29/23 20:00 O2 Flow Rate 2 04/29/23 14:45 FiO2 24 04/25/23 20:00 Pain Score (VAS): 0-sleeping I/O: Intake & Output 04/29/23 04/29/23 04/30/23 15:59 23:59 07:59 Intake Total 200 1060 Output Total 1950 570 Balance 200 890 -570 Laboratory Tests 04/30/23 05:09 04/30/23 05:09 04/30/23 05:09 WBC 13.7 H RBC 3.34 L Hgb 9.4 L Hct 30.8 L MCV 92.2 MCH 28.1 MCHC 30.5 L RDW 16.1 H Plt Count 353 MPV 9.7 Immature Gran % (Auto) 1.2 H Neut % (Auto) 66.8 Lymph % (Auto) 20.3 [place] % (Auto) 8.7 H Eos % (Auto) 2.6 Baso % (Auto) 0.4 Lymph # (Auto) 2.77 [place] # (Auto) 1.2 H Eos # (Auto) 0.4 H Baso # (Auto) 0.1 Abs Immat Gran (auto) 0.17 H Absolute Neuts (auto) 9.1 H Absolute Nucleated RBC 0.0 Nucleated RBC % 0.0 Sodium 139 Potassium 4.2 Chloride 107 Carbon Dioxide 28 Anion Gap 4 L BUN 39 H Creatinine 1.30 Estim Creat Clear Calc 64 Estimated GFR 56 L Glucose 97 Calcium 8.8 Magnesium 1.6 Total Bilirubin 0.4 AST 30 ALT 13 Alkaline Phosphatase 112 Total Protein 6.0 L Albumin 2.7 L Vitamin B12 657.0 Folate 10.2 Post-procedural complaints: none Patient Feedback: Patient satisfied with anesthetic care.
--- NOTE | 2023-04-30 08:27 | WPDPN ---
Progress Note: A&P Assessment and Plan (1) Decubitus ulcer of sacral region, unstageable: Code(s): L89.150 - Pressure ulcer of sacral region, unstageable Status: Acute Assessment and Plan: Stage IV sacral decubitus wound is starting to contract and getting some good granulation tissue and about 50% of the wound. We will plan on another wound VAC change early next week with application of biologic graft to and wound healing. Eventual plan is to discharge patient to [facility] wound care [facility] in [place]. Hopefully this can happen next 7 to 10 days. Subjective Date/time seen: 04/30/23 08:27 Interval history: Patient doing well without new complaints. Clinically stable overnight. Had another debridement of his wound and change the wound VAC yesterday in the operating room. Exam Skin: Other: Wound VAC in place on sacral decubitus ulcer. Vac is sealing without air leak. Objective Data Vital Signs Vital Signs: Vital Signs - 24 hr 04/29/23 09:03 04/29/23 10:00 04/29/23 13:51 Temperature 36.1 C L Pulse Rate 72 Respiratory Rate 15 Blood Pressure 115/50 L Pulse Oximetry 96 Oxygen Delivery Room Air Room Air Simple Face Mask Oxygen Flow Rate 10 04/29/23 14:00 04/29/23 14:10 04/29/23 14:25 Temperature Pulse Rate 67 68 67 Respiratory Rate 15 17 16 Blood Pressure 95/75 L 114/78 117/60 Pulse Oximetry 100 98 98 Oxygen Delivery Simple Face Mask Room Air Nasal Cannula Oxygen Flow Rate 10 2 04/29/23 14:40 04/29/23 14:45 04/29/23 13:06 Temperature 36.4 C L Pulse Rate 66 64 69 Respiratory Rate 12 14 16 Blood Pressure 124/63 110/67 104/56 L Pulse Oximetry 100 100 97 Oxygen Delivery Nasal Cannula Nasal Cannula Oxygen Flow Rate 2 2 04/29/23 15:21 04/29/23 15:51 04/29/23 16:51 Temperature 36.3 C L Pulse Rate 61 72 79 Respiratory Rate 18 18 18 Blood Pressure 106/61 113/60 116/79 Pulse Oximetry 92 97 95 Oxygen Delivery Oxygen Flow Rate 04/29/23 12:00 04/29/23 16:00 04/29/23 20:11 Temperature 36.9 C Pulse Rate 74 72 85 Respiratory Rate 17 Blood Pressure 106/53 L Pulse Oximetry 100 Oxygen Delivery Oxygen Flow Rate 04/29/23 20:00 04/29/23 20:00 04/30/23 00:00 Temperature Pulse Rate 80 72 Respiratory Rate Blood Pressure Pulse Oximetry Oxygen Delivery Room Air Oxygen Flow Rate 04/30/23 00:50 04/30/23 04:00 04/30/23 04:47 Temperature 37.1 C 36.4 C Pulse Rate 74 74 75 Respiratory Rate 18 18 Blood Pressure 104/44 L 102/47 L Pulse Oximetry 93 97 Oxygen Delivery Oxygen Flow Rate Intake/Output Intake/Output: Intake & Output 04/27/23 04/28/23 04/29/23 04/30/23 23:59 23:59 23:59 23:59 Intake Total 1355 1780 2610 Output Total 2250 0972 4650 570 [facility] -895 -1370 -2040 -570 Meds/Results Medications: Active Medications Generic Name Dose Route Start Last Admin Trade Name Freq PRN Reason Stop Dose Admin Hydrocodone Bitart/Acetaminophen 1 tab 04/20/23 12:13 04/29/23 20:55 Hydrocodone/Acetaminophen (*Crx) 5-325 Mg Tablet PO 1 tab Q4H PRN Administration Pain Rated 4-6 Albuterol 2.5 mg 04/17/23 11:23 Albuterol Sulfate Neb 2.5 Mg/3 Ml Inh INHALATION Q6HRT PRN Shortness Of Breath Albuterol/Ipratropium 3 ml 04/29/23 06:57 Ipratropium 0.5 Mg/Albuterol Sulfate 2.5 Mg Ampul.Neb 3 Ml INHALATION Q6HRT PRN Shortness Of Breath Or Wheezing Alprazolam 0.5 mg 04/15/23 09:00 04/29/23 20:55 Alprazolam (*Crx) 0.5 Mg Tablet PO 0.5 mg QID ANNE Administration Alteplase, Recombinant 2 mg 04/26/23 21:50 04/27/23 00:09 Alteplase 2 Mg Vial (Cathflo) IV PUSH 2 mg ONCE PRN Administration Line Occlusion Ascorbic Acid 500 mg 04/15/23 09:00 04/29/23 15:43 Ascorbic Acid 500 Mg Tablet PO 500 mg DAILY ANNE Administration Ciprofloxacin 500 mg 04/23/23 12:30 02/01/24 20:55 Ciprofloxacin 500 Mg Tab PO 500 mg
--- NOTE | 2023-04-30 09:53 | PM.IMPN ---
Progress Note: A&P Assessment and Plan (1) Wound infection: Code(s): T14.8XXA - Other injury of unspecified body region, initial encounter; L08.9 - Local infection of the skin and subcutaneous tissue, unspecified Status: Acute Assessment and Plan: Patient brought to the emergency room because of lethargy and concerns for infected sacral wound. Pelvic CT showed subcu fat stranding and soft tissue gas in the buttocks consistent with infection. No abscess no evidence of osteomyelitis. General surgery consulted. Blood cultures growing Staph epidermidis 1 bottle. Repeat blood cultures negative. Possibly a contaminant although difficult to tell. White count was elevated on admission 13K. Wound culture growing Pseudomonas and Bacteroides. Patient underwent debridement 04/15, 04/22, 04/26 and 04/29. Wound VAC in place Patient underwent diverting colostomy on 04/19 to assist with healing. WBC remains elevated but could be from stress response after another debridement. Continue Flagyl and ciprofloxacin for now Start PT/OT when able. (2) Sepsis: Code(s): A41.9 - Sepsis, unspecified organism Status: Acute Assessment and Plan: Sepsis present on admission with leukocytosis, lethargy and tachycardia. Related to infected sacral decubitus ulcer As above. (3) Chronic kidney disease: Code(s): N18.9 - Chronic kidney disease, unspecified Status: Acute Assessment and Plan: Renal function running 1-1.4 range. Creatinine climbed to 1.7 early in the hospital course but has returned to his baseline. 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 Last admission patient states he left the rehab facility AMA after pulling out his Durant catheter. CT of the pelvis on admission showed diffuse bladder wall thickening and mild bilateral hydronephrosis. Durant catheter was in place at the time. Cr remains within baseline Continue to monitor renal function, urine output and electrolytes. (4) Depression: Code(s): F32.A - Depression, unspecified Status: Acute Assessment and Plan: Patient with depression and history of suicidal attempt 03/20 with Tylenol. History of neurocognitive disorder Mood stable. Continue Paxil and trazodone. Chart states he is on Lexapro as well which would be unusual to be on 2 SSRIs. Lexapro stopped. Monitor mood. (5) Urinary retention with incomplete bladder emptying: Code(s): R33.9 - Retention of urine, unspecified Status: Acute Assessment and Plan: As above BPH with urinary retention from possible neurogenic bladder He has recurrent hydronephrosis and BOAZ but better now that he is allowing Durant catheter to remain in place Continue Proscar. (6) Acute respiratory failure with hypercapnia: Code(s): J96.02 - Acute respiratory failure with hypercapnia Status: Acute Assessment and Plan: Acute hypercapnic respiratory failure on admission ABG showed hypoxemic respiratory failure with tachycardia and tachypnea on 5 L oxygen. CTA showed no pulmonary embolism but small pleural effusion. Found to have a RSV. Hypercapnia likely related to sedation improved with noninvasive BiPAP ventilatory support Pulmonary was consulted during the hospital stay Weaned off bipap. Refusing bipap now for YOSEPH treatment. Weaned to room air Follow (7) Decubitus ulcer of sacral region, unstageable: Code(s): L89.150 - Pressure ulcer of sacral region, unstageable Status: Acute Assessment and Plan: As above Plan Hx of alcohol abuse YOSEPH - AHI of 96.6 suggestive of severe obstructive sleep apnea in past. Auto-PAP ordered but patient refusing. Chronic pain syndrome - on scheduled pain medications. Cervical disc disorder with myelopathy - s/p surgical C4-C7 decompression and C3-T1 posterolateral fusion [facility] [place] [facility]
[2023-04-30] MEDS: ALPRAZolam (*CRX) 0.5 MG TABLET PO ×3 (10:33→21:14)
[2023-04-30] MEDS: ZINC SULFATE 220 MG CAPSULE PO (10:34)
[2023-04-30] MEDS: PARoxetine 10 MG TABLET 30 MG PO (10:34)
[2023-04-30] MEDS: THERAPEUTIC MULTIVITAMINS/MINERALS TAB (*BKC) 1 TABLET PO (10:34)
[2023-04-30] MEDS: CIPROFLOXACIN 500 MG TAB PO ×2 (10:34→21:13)
[2023-04-30] MEDS: FINASTERIDE 5 MG TABLET PO (10:34)
[2023-04-30] MEDS: ASCORBIC ACID 500 MG TABLET PO (10:34)
[2023-04-30] MEDS: PREGABALIN (*CRX) 75 MG CAPSULE 150 MG PO ×3 (10:34→17:39)
[2023-04-30] MEDS: SIMVASTATIN 20 MG TABLET PO (10:34)
[2023-04-30] MEDS: FLUTICASONE PROPIONATE 0.05% NA SPR 16 GM BTL (*BKC) 1 SPRAY NASAL ×2 (10:35→21:13)
[2023-04-30] MEDS: TIMOLOL MALEATE 0.5% OP SOLN 5 ML BOTTLE 1 DROP EACH EYE (10:35)
[2023-04-30] MEDS: ENOXAPARIN 40 MG/0.4 ML SYRINGE SUB-Q (10:58)
[2023-04-30] MEDS: FERROUS SULFATE 325 MG TABLET DR PO (12:59)
[2023-04-30] MEDS: HYDROcodone/acetaminophen (*CRX) 5-325 MG TABLET 1 TAB PO (21:13)
[2023-04-30] MEDS: traZODone HCL 50 MG TABLET 150 MG PO (21:13)
[2023-05-01 04:22] VITALS: BP 101/57; PULSE 70; RESP 14; TEMP 36.3; O2SAT 95
[2023-05-01] MEDS: oxyCODONE HCL (*CRX) 5 MG TAB IR 10 MG PO ×3 (05:08→18:58)
[2023-05-01] MEDS: CENTRAL LINE FLUSH 10 ML IV PUSH ×3 (05:08→20:42)
[2023-05-01] MEDS: metroNIDAZOLE 500 MG TABLET PO ×3 (05:08→20:42)
[2023-05-01 05:52] LABS: Anion Gap 3 mmol/L (8-16); Blood Urea Nitrogen 33 mg/dL (9-20); Calcium 8.8 mg/dL (8.4-10.2); Carbon Dioxide 30 mmol/L (22-30); Chloride 107 mmol/L (98-107); Estimated CRCL calculation 64 ml/min; Estimated Glomerular Filt Rate 56; Glucose 102 mg/dL (65-110); Potassium 3.8 mmol/L (3.4-5.0); Sodium 140 mmol/L (137-145)
[2023-05-01 05:59] LABS: Basophils Absolute Auto 0.1 K/mm3 (0.0-0.1); Basophils Percent Auto 0.5 % (0.2-1.2); Eosinophils Absolute Auto 0.5 K/mm3 (0-0.3); Hemoglobin 9.4 g/dL (14.0-18.0); Immature Granulocyte Absolute 0.16 K/mm3 (0.00-0.031); Immature Granulocyte Percent A 1.4 % (0-0.5); Lymphocytes Absolute Auto 2.72 K/mm3 (0.9-3.2); Lymphocytes Percent Auto 23.9 % (18.3-44.2); Mean Corpuscular HGB Conc 30.3 g/dl (32-36); Mean Corpuscular Hemoglobin 28.5 pg (26-34); Mean Corpuscular Volume 93.9 fl (80-100); Monocytes Percent Auto 8.9 % (2.6-8.5); Neutrophils Percent Auto 61.3 % (45.5-73.1); Platelet Count Result 327 k/mm3 (150-375); Red Cell Distribution Width 16.3 % (11.5-14.5); White Blood Count 11.4 K/mm3 (4.5-10.0)
[2023-05-01 10:00] VITALS: BP 100/58; PULSE 85; RESP 16; O2SAT 100
--- NOTE | 2023-05-01 10:07 | WPDPN ---
Progress Note: A&P Assessment and Plan (1) Decubitus ulcer of sacral region, unstageable: Code(s): L89.150 - Pressure ulcer of sacral region, unstageable Status: Acute Assessment and Plan: Patient continues do well and wound VAC continues to function well. It continues to keep good suction. We will plan on change of wound VAC early next week Wednesday or Wednesday and application of biologic graft to augment wound healing. Plan is still to transfer to LTAC at [facility] in [place] once he is ready for discharge from [place]. Subjective Date/time seen: 05/01/23 10:07 Interval history: Patient remains stable clinically. Continue the well. Ostomy is working well. Wound VAC on sacral decubitus wound continues to keep suction. Exam Skin: Other: Wound VAC on sacral decubitus ulcer on buttocks. Drainage is serous. Objective Data Vital Signs Vital Signs: Vital Signs - 24 hr 04/30/23 10:30 04/30/23 12:50 04/30/23 14:22 Temperature 36.5 C 36.3 C L Pulse Rate 84 82 Respiratory Rate 16 18 Blood Pressure 90/50 L 98/52 L Pulse Oximetry 97 100 Oxygen Delivery Room Air 04/30/23 17:25 04/30/23 20:09 04/30/23 20:00 Temperature 36.5 C 36.8 C Pulse Rate 84 77 Respiratory Rate 16 14 Blood Pressure 108/86 90/54 L Pulse Oximetry 97 100 Oxygen Delivery Room Air 05/01/23 04:22 05/01/23 10:00 Temperature 36.3 C L Pulse Rate 70 85 Respiratory Rate 14 16 Blood Pressure 101/57 L 100/58 L Pulse Oximetry 95 100 Oxygen Delivery Intake/Output Intake/Output: Intake & Output 04/28/23 04/29/23 04/30/23 05/01/23 23:59 23:59 23:59 23:59 Intake Total 1780 2610 1300 Output Total 3150 7200 1870 950 Balance -1370 -2040 -570 -950 Meds/Results Medications: Active Medications Generic Name Dose Route Start Last Admin Trade Name Freq PRN Reason Stop Dose Admin Hydrocodone Bitart/Acetaminophen 1 tab 04/20/23 12:13 04/30/23 21:13 Hydrocodone/Acetaminophen (*Crx) 5-325 Mg Tablet PO 1 tab Q4H PRN Administration Pain Rated 4-6 Albuterol 2.5 mg 04/17/23 11:23 Albuterol Sulfate Neb 2.5 Mg/3 Ml Inh INHALATION Q6HRT PRN Shortness Of Breath Albuterol/Ipratropium 3 ml 04/29/23 06:57 Ipratropium 0.5 Mg/Albuterol Sulfate 2.5 Mg Ampul.Neb 3 Ml INHALATION Q6HRT PRN Shortness Of Breath Or Wheezing Alprazolam 0.5 mg 04/15/23 09:00 04/30/23 21:14 Alprazolam (*Crx) 0.5 Mg Tablet PO 0.5 mg QID ANNE Administration Alteplase, Recombinant 2 mg 04/26/23 21:50 04/27/23 00:09 Alteplase 2 Mg Vial (Cathflo) IV PUSH 2 mg ONCE PRN Administration Line Occlusion Ascorbic Acid 500 mg 04/15/23 09:00 04/30/23 10:34 Ascorbic Acid 500 Mg Tablet PO 500 mg DAILY ANNE Administration Ciprofloxacin 500 mg 04/23/23 12:30 04/30/23 21:13 Ciprofloxacin 500 Mg Tab PO 500 mg Q12HR ANNE Administration Enoxaparin Sodium 40 mg 04/23/23 09:00 04/30/23 10:58 Enoxaparin 40 Mg/0.4 Ml Syringe SUB-Q 40 mg DAILY ANNE Administration Fentanyl Citrate 25 mcg 04/29/23 11:47 04/29/23 14:40 Fentanyl Citrate Inj (*Crx) 100 Mcg/2 Ml Vial IV PUSH 25 mcg Q2M PRN Administration Pain Ferrous Sulfate 325 mg 04/15/23 12:00 04/30/23 12:59 Ferrous Sulfate [address] PO 325 mg DAILY@1200 ANNE Administration Finasteride 5 mg 04/15/23 09:00 04/30/23 10:34 Finasteride 5 Mg Tablet PO 5 mg QAM ANNE Administration Fluticasone Propionate 1 spray 04/27/23 21:00 04/30/23 21:13 Fluticasone Propionate 0.05% Na Spr 16 Gm Btl (*Bkc) NASAL 1 spray Q12HR ANNE Administration Methocarbamol 1,500 mg 04/15/23 00:15 Methocarbamol 750 Mg Tablet PO TID PRN Bladder Spasms Metronidazole 500 mg 04/23/23 14:00 05/01/23 05:08 Metronidazole 500 Mg Tablet PO 500 mg Q8HR ANNE Administration Multivitamins/Calcium 1 tablet 04/15/23 09:00 04/30/23 10:34 Therapeutic Multivitamins
[2023-05-01] MEDS: THERAPEUTIC MULTIVITAMINS/MINERALS TAB (*BKC) 1 TABLET PO (10:08)
[2023-05-01] MEDS: PARoxetine 10 MG TABLET 30 MG PO (10:08)
[2023-05-01] MEDS: CIPROFLOXACIN 500 MG TAB PO ×2 (10:08→20:39)
[2023-05-01] MEDS: FINASTERIDE 5 MG TABLET PO (10:08)
[2023-05-01] MEDS: ASCORBIC ACID 500 MG TABLET PO (10:08)
[2023-05-01] MEDS: SIMVASTATIN 20 MG TABLET PO (10:08)
[2023-05-01] MEDS: PREGABALIN (*CRX) 75 MG CAPSULE 150 MG PO ×3 (10:08→17:51)
[2023-05-01] MEDS: ZINC SULFATE 220 MG CAPSULE PO (10:09)
[2023-05-01] MEDS: TIMOLOL MALEATE 0.5% OP SOLN 5 ML BOTTLE 1 DROP EACH EYE (10:09)
[2023-05-01] MEDS: FLUTICASONE PROPIONATE 0.05% NA SPR 16 GM BTL (*BKC) 1 SPRAY NASAL (10:09)
[2023-05-01] MEDS: ALPRAZolam (*CRX) 0.5 MG TABLET PO ×3 (10:09→20:39)
[2023-05-01] MEDS: ENOXAPARIN 40 MG/0.4 ML SYRINGE SUB-Q (10:10)
[2023-05-01 12:27] VITALS: BP 112/52; PULSE 82; RESP 16; O2SAT 99
[2023-05-01] MEDS: FERROUS SULFATE 325 MG TABLET DR PO (12:30)
[2023-05-01 15:01] VITALS: BP 108/53; PULSE 84; RESP 18; TEMP 37; O2SAT 98
--- NOTE | 2023-05-01 15:30 | PM.IMPN ---
Progress Note: A&P Assessment and Plan (1) Wound infection: Code(s): T14.8XXA - Other injury of unspecified body region, initial encounter; L08.9 - Local infection of the skin and subcutaneous tissue, unspecified Status: Acute Assessment and Plan: Patient brought to the emergency room because of lethargy and concerns for infected sacral wound. Pelvic CT showed subcu fat stranding and soft tissue gas in the buttocks consistent with infection. No abscess no evidence of osteomyelitis. General surgery consulted. Blood cultures growing Staph epidermidis 1 bottle. Repeat blood cultures negative. Possibly a contaminant although difficult to tell. White count was elevated on admission 13K. Wound culture growing Pseudomonas and Bacteroides. Patient underwent debridement 04/15, 04/22, 04/26 and 04/29. Wound VAC in place Patient underwent diverting colostomy on 04/19 to assist with healing. WBC remains elevated but could be from stress response after another debridement. Continue Flagyl and ciprofloxacin for now Continue PT/OT in bed but no plans at this time for him to be up moving until okay with surgery (2) Sepsis: Code(s): A41.9 - Sepsis, unspecified organism Status: Acute Assessment and Plan: Sepsis present on admission with leukocytosis, lethargy and tachycardia. Related to infected sacral decubitus ulcer As above. (3) Chronic kidney disease: Code(s): N18.9 - Chronic kidney disease, unspecified Status: Acute Assessment and Plan: Renal function running 1-1.4 range. Creatinine climbed to 1.7 early in the hospital course but has returned to his baseline. 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 Last admission patient states he left the rehab facility AMA after pulling out his Durant catheter. CT of the pelvis on admission showed diffuse bladder wall thickening and mild bilateral hydronephrosis. Durant catheter was in place at the time. Cr remains within baseline Continue to monitor renal function, urine output and electrolytes. (4) Depression: Code(s): F32.A - Depression, unspecified Status: Acute Assessment and Plan: Patient with depression and history of suicidal attempt 03/20 with Tylenol. History of neurocognitive disorder Mood stable. Continue Paxil and trazodone. Chart states he is on Lexapro as well which would be unusual to be on 2 SSRIs. Lexapro stopped. Monitor mood. (5) Urinary retention with incomplete bladder emptying: Code(s): R33.9 - Retention of urine, unspecified Status: Acute Assessment and Plan: As above BPH with urinary retention from possible neurogenic bladder He has recurrent hydronephrosis and BOAZ but better now that he is allowing Durant catheter to remain in place Continue Proscar. (6) Acute respiratory failure with hypercapnia: Code(s): J96.02 - Acute respiratory failure with hypercapnia Status: Acute Assessment and Plan: Acute hypercapnic respiratory failure on admission ABG showed hypoxemic respiratory failure with tachycardia and tachypnea on 5 L oxygen. CTA showed no pulmonary embolism but small pleural effusion. Found to be RSV positive Hypercapnia likely related to sedation improved with noninvasive BiPAP ventilatory support Pulmonary was consulted during the hospital stay Weaned off bipap. Refusing bipap now for YOSEPH treatment. Weaned to room air. okay to remove bipap from room Follow (7) Decubitus ulcer of sacral region, unstageable: Code(s): L89.150 - Pressure ulcer of sacral region, unstageable Status: Acute Assessment and Plan: As above Plan Hx of alcohol abuse YOSEPH - AHI of 96.6 suggestive of severe obstructive sleep apnea in past. Auto-PAP ordered but patient refusing. Chronic pain syndrome - on scheduled pain medications. Cervical disc disorder with myelopathy - s/p surgical C4-
[2023-05-01 19:24] VITALS: BP 90/50; PULSE 93; RESP 16; TEMP 36.8; O2SAT 97
[2023-05-01] MEDS: traZODone HCL 50 MG TABLET 150 MG PO (20:41)
[2023-05-02] MEDS: oxyCODONE HCL (*CRX) 5 MG TAB IR 10 MG PO ×4 (00:09→19:01)
[2023-05-02 05:10] VITALS: BP 105/62; PULSE 72; RESP 16; TEMP 36.6; O2SAT 97
[2023-05-02] MEDS: metroNIDAZOLE 500 MG TABLET PO ×3 (06:14→21:32)
[2023-05-02] MEDS: CENTRAL LINE FLUSH 10 ML IV PUSH ×3 (06:14→21:32)
[2023-05-02 08:32] VITALS: O2SAT 97
[2023-05-02 10:07] VITALS: BP 92/54; PULSE 95; RESP 16; O2SAT 99
[2023-05-02] MEDS: SIMVASTATIN 20 MG TABLET PO (10:12)
[2023-05-02] MEDS: ZINC SULFATE 220 MG CAPSULE PO (10:12)
[2023-05-02] MEDS: PARoxetine 10 MG TABLET 30 MG PO (10:12)
[2023-05-02] MEDS: PREGABALIN (*CRX) 75 MG CAPSULE 150 MG PO ×3 (10:12→18:04)
[2023-05-02] MEDS: THERAPEUTIC MULTIVITAMINS/MINERALS TAB (*BKC) 1 TABLET PO (10:13)
[2023-05-02] MEDS: ASCORBIC ACID 500 MG TABLET PO (10:13)
[2023-05-02] MEDS: CIPROFLOXACIN 500 MG TAB PO ×2 (10:13→20:40)
[2023-05-02] MEDS: TIMOLOL MALEATE 0.5% OP SOLN 5 ML BOTTLE 1 DROP EACH EYE (10:13)
[2023-05-02] MEDS: FINASTERIDE 5 MG TABLET PO (10:13)
[2023-05-02] MEDS: ENOXAPARIN 40 MG/0.4 ML SYRINGE SUB-Q (10:13)
[2023-05-02] MEDS: FLUTICASONE PROPIONATE 0.05% NA SPR 16 GM BTL (*BKC) 1 SPRAY NASAL (10:13)
--- NOTE | 2023-05-02 10:42 | PM.IMPN ---
Progress Note: A&P Assessment and Plan (1) Wound infection: Code(s): T14.8XXA - Other injury of unspecified body region, initial encounter; L08.9 - Local infection of the skin and subcutaneous tissue, unspecified Status: Acute Assessment and Plan: Patient brought to the emergency room because of lethargy and concerns for infected sacral wound. Pelvic CT showed subcu fat stranding and soft tissue gas in the buttocks consistent with infection. No abscess no evidence of osteomyelitis. General surgery consulted. Blood cultures growing Staph epidermidis 1 bottle. Repeat blood cultures negative. Possibly a contaminant although difficult to tell. White count was elevated on admission 13K. Wound culture growing Pseudomonas and Bacteroides. Patient underwent debridement 04/15, 04/22, 04/26 and 04/29. Wound VAC in place Patient underwent diverting colostomy on 04/19 to assist with healing. WBC remains elevated but could be from stress response after another debridement. Continue Flagyl and ciprofloxacin for now Continue PT/OT in bed but no plans at this time for him to be up moving until okay with surgery Skin grafting being planned. Then to LTAC (2) Sepsis: Code(s): A41.9 - Sepsis, unspecified organism Status: Acute Assessment and Plan: Sepsis present on admission with leukocytosis, lethargy and tachycardia. Related to infected sacral decubitus ulcer As above. (3) Chronic kidney disease: Code(s): N18.9 - Chronic kidney disease, unspecified Status: Acute Assessment and Plan: Renal function running 1-1.4 range. Creatinine climbed to 1.7 early in the hospital course but has returned to his baseline. 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 Last admission patient states he left the rehab facility AMA after pulling out his Durant catheter. CT of the pelvis on admission showed diffuse bladder wall thickening and mild bilateral hydronephrosis. Durant catheter was in place at the time. Cr remains within baseline Continue to monitor renal function, urine output and electrolytes. (4) Depression: Code(s): F32.A - Depression, unspecified Status: Acute Assessment and Plan: Patient with depression and history of suicidal attempt 03/20 with Tylenol. History of neurocognitive disorder Chart states he is on Lexapro as well which would be unusual to be on 2 SSRIs. Lexapro stopped. Mood stable. Continue Paxil and trazodone. Monitor (5) Urinary retention with incomplete bladder emptying: Code(s): R33.9 - Retention of urine, unspecified Status: Acute Assessment and Plan: As above BPH with urinary retention from possible neurogenic bladder He has recurrent hydronephrosis and BOAZ but better now that he is allowing Durant catheter to remain in place Discussed with him in detail the need to continue to have the Durant in place Continue Proscar. Continue to hold Flomax due to soft BP (6) Acute respiratory failure with hypercapnia: Code(s): J96.02 - Acute respiratory failure with hypercapnia Status: Acute Assessment and Plan: Acute hypercapnic respiratory failure on admission ABG showed hypoxemic respiratory failure with tachycardia and tachypnea on 5 L oxygen. CTA showed no pulmonary embolism but small pleural effusion. Found to be RSV positive Hypercapnia likely related to sedation improved with noninvasive BiPAP ventilatory support Pulmonary was consulted during the hospital stay Weaned off bipap. Refusing bipap now for YOSEPH treatment. Weaned to room air. Okay to remove bipap from room Follow (7) Decubitus ulcer of sacral region, unstageable: Code(s): L89.150 - Pressure ulcer of sacral region, unstageable Status: Acute Assessment and Plan: As above Plan Hx of alcohol abuse YOSEPH - AHI of 96.6 suggestive of severe obstructive sleep apnea in past
[2023-05-02 12:36] VITALS: BP 120/63
[2023-05-02] MEDS: FERROUS SULFATE 325 MG TABLET DR PO (12:37)
[2023-05-02] MEDS: ALPRAZolam (*CRX) 0.5 MG TABLET PO ×3 (14:22→20:40)
--- NOTE | 2023-05-02 16:54 | WPDPN ---
Progress Note: A&P Assessment and Plan (1) Decubitus ulcer of sacral region, unstageable: Code(s): L89.150 - Pressure ulcer of sacral region, unstageable Status: Acute Assessment and Plan: Patient will need to return to the operating room tomorrow for wound VAC change. This time after any debridement I will plan on application of biologic graft to facilitate faster wound healing. Subjective Date/time seen: 05/02/23 16:54 Interval history: Patient doing well without any complaints. Medical status is stable. Exam Skin: Other: Wound VAC in place over sacrum. No air leak. Objective Data Vital Signs Vital Signs: Vital Signs - 24 hr 05/01/23 19:24 05/02/23 05:10 05/02/23 08:32 Temperature 36.8 C 36.6 C Pulse Rate 93 72 Respiratory Rate 16 16 Blood Pressure 90/50 L 105/62 Pulse Oximetry 97 97 97 Oxygen Delivery Room Air Fraction of Inspired Oxygen 21 05/02/23 10:07 05/02/23 10:15 05/02/23 12:36 Temperature Pulse Rate 95 Respiratory Rate 16 Blood Pressure 92/54 L 120/63 Pulse Oximetry 99 Oxygen Delivery Room Air Fraction of Inspired Oxygen Intake/Output Intake/Output: Intake & Output 04/29/23 04/30/23 05/01/23 05/02/23 23:59 23:59 23:59 23:59 Intake Total 2610 1300 720 780 Output Total 4650 1870 2250 1450 [facility] -2040 -[phone] -670 Meds/Results Medications: Active Medications Generic Name Dose Route Start Last Admin Trade Name Freq PRN Reason Stop Dose Admin Hydrocodone Bitart/Acetaminophen 1 tab 04/20/23 12:13 04/30/23 21:13 Hydrocodone/Acetaminophen (*Crx) 5-325 Mg Tablet PO 1 tab Q4H PRN Administration Pain Rated 4-6 Albuterol 2.5 mg 04/17/23 11:23 Albuterol Sulfate Neb 2.5 Mg/3 Ml Inh INHALATION Q6HRT PRN Shortness Of Breath Albuterol/Ipratropium 3 ml 04/29/23 06:57 Ipratropium 0.5 Mg/Albuterol Sulfate 2.5 Mg Ampul.Neb 3 Ml INHALATION Q6HRT PRN Shortness Of Breath Or Wheezing Alprazolam 0.5 mg 04/15/23 09:00 05/02/23 14:22 Alprazolam (*Crx) 0.5 Mg Tablet PO 0.5 mg QID ANNE Administration Alteplase, Recombinant 2 mg 04/26/23 21:50 04/27/23 00:09 Alteplase 2 Mg Vial (Cathflo) IV PUSH 2 mg ONCE PRN Administration Line Occlusion Ascorbic Acid 500 mg 04/15/23 09:00 05/02/23 10:13 Ascorbic Acid 500 Mg Tablet PO 500 mg DAILY ANNE Administration Ciprofloxacin 500 mg 04/23/23 12:30 05/02/23 10:13 Ciprofloxacin 500 Mg Tab PO 500 mg Q12HR ANNE Administration Enoxaparin Sodium 40 mg 04/23/23 09:00 05/02/23 10:13 Enoxaparin 40 Mg/0.4 Ml Syringe SUB-Q 40 mg DAILY ANNE Administration Fentanyl Citrate 25 mcg 04/29/23 11:47 04/29/23 14:40 Fentanyl Citrate Inj (*Crx) 100 Mcg/2 Ml Vial IV PUSH 25 mcg Q2M PRN Administration Pain Ferrous Sulfate 325 mg 04/15/23 12:00 05/02/23 12:37 Ferrous Sulfate [address] PO 325 mg DAILY@1200 [facility] Administration Finasteride 5 mg 04/15/23 09:00 05/02/23 10:13 Finasteride 5 Mg Tablet PO 5 mg QAM ANNE Administration Fluticasone Propionate 1 spray 04/27/23 21:00 05/02/23 10:13 Fluticasone Propionate 0.05% Na Spr 16 Gm Btl (*Bkc) NASAL 1 spray Q12HR ANNE Administration Methocarbamol 1,500 mg 04/15/23 00:15 Methocarbamol 750 Mg Tablet PO TID PRN Bladder Spasms Metronidazole 500 mg 04/23/23 14:00 05/02/23 14:22 Metronidazole 500 Mg Tablet PO 500 mg Q8HR [facility] Administration Multivitamins/Calcium 1 tablet 04/15/23 09:00 05/02/23 10:13 Therapeutic Multivitamins/Minerals Tab (*Bkc) PO 1 tablet DAILY ANNE Administration Ondansetron HCl 4 mg 04/29/23 11:47 Ondansetron Inj 4 Mg/2 Ml Vial IV PUSH ONCE PRN Nausea Oxycodone HCl 10 mg 04/15/23 00:15 05/02/23 12:37 Oxycodone Hcl (*Crx) 5 Mg Tab Ir PO 10 mg Q6HR ANNE Administration Paroxetine HCl 30 mg 04/15/23 09:00 05/02/23 10:12 Paroxetine 10 Mg Ta
[2023-05-02 18:02] VITALS: BP 102/54
[2023-05-02 20:14] VITALS: BP 106/53; PULSE 78; RESP 20; TEMP 36.3; O2SAT 100
[2023-05-02] MEDS: traZODone HCL 50 MG TABLET 150 MG PO (20:40)
[2023-05-03] VITALS (10 sets, daily range): BP systolic 109–126; BP diastolic 50–77; PULSE 47–84; RESP 12–20; TEMP 35.8–36.7; O2SAT 93–100
[2023-05-03] MEDS: oxyCODONE HCL (*CRX) 5 MG TAB IR 10 MG PO ×5 (00:06→23:46)
[2023-05-03] MEDS: metroNIDAZOLE 500 MG TABLET PO ×3 (05:37→20:31)
[2023-05-03] MEDS: CENTRAL LINE FLUSH 10 ML IV PUSH ×3 (05:38→20:32)
[2023-05-03 05:52] LABS: Basophils Absolute Auto 0.1 K/mm3 (0.0-0.1); Basophils Percent Auto 0.4 % (0.2-1.2); Eosinophils Absolute Auto 0.5 K/mm3 (0-0.3); Hematocrit 32.5 % (42.0-52.0); Hemoglobin 9.8 g/dL (14.0-18.0); Immature Granulocyte Absolute 0.14 K/mm3 (0.00-0.031); Immature Granulocyte Percent A 1.1 % (0-0.5); Lymphocytes Absolute Auto 2.96 K/mm3 (0.9-3.2); Lymphocytes Percent Auto 23.3 % (18.3-44.2); Mean Corpuscular HGB Conc 30.2 g/dl (32-36); Mean Corpuscular Hemoglobin 27.9 pg (26-34); Mean Corpuscular Volume 92.6 fl (80-100); Mean Platelet Volume 9.3 fl (7.4-10.4); Monocytes Absolute Auto 1.1 K/mm3 (0.1-0.6); Monocytes Percent Auto 8.5 % (2.6-8.5); Neutrophils Percent Auto 62.7 % (45.5-73.1); Platelet Count Result 321 k/mm3 (150-375); Red Blood Count 3.51 M/mm3 (4.6-6.20); Red Cell Distribution Width 16.5 % (11.5-14.5); White Blood Count 12.7 K/mm3 (4.5-10.0)
[2023-05-03 06:04] LABS: Alanine Aminotransferase 15 U/L (6-50); Albumin Level 2.9 g/dL (3.5-5.1); Alkaline Phosphatase 108 U/L (38-126); Anion Gap 3 mmol/L (8-16); Aspartate Amino Transferase 36 U/L (17-59); Bilirubin,Total 0.4 mg/dL (0.2-1.3); Blood Urea Nitrogen 38 mg/dL (9-20); Calcium 8.7 mg/dL (8.4-10.2); Carbon Dioxide 30 mmol/L (22-30); Chloride 106 mmol/L (98-107); Estimated CRCL calculation 69 ml/min; Estimated Glomerular Filt Rate > 60; Glucose 95 mg/dL (65-110); Magnesium 1.5 mg/dL (1.6-2.3); Phosphorus 3.3 mg/dL (2.5-4.5); Potassium 3.5 mmol/L (3.4-5.0); Sodium 139 mmol/L (137-145)
[2023-05-03] MEDS: MAGNESIUM SULF 2 GM/WATER 50ML 2 GM/50 ML BAG IVPB (11:19)
[2023-05-03] MEDS: ALPRAZolam (*CRX) 0.5 MG TABLET PO ×3 (11:20→20:31)
[2023-05-03] MEDS: THERAPEUTIC MULTIVITAMINS/MINERALS TAB (*BKC) 1 TABLET PO (11:20)
[2023-05-03] MEDS: ZINC SULFATE 220 MG CAPSULE PO (11:20)
[2023-05-03] MEDS: SIMVASTATIN 20 MG TABLET PO (11:21)
[2023-05-03] MEDS: FINASTERIDE 5 MG TABLET PO (11:21)
[2023-05-03] MEDS: CIPROFLOXACIN 500 MG TAB PO ×2 (11:21→20:31)
[2023-05-03] MEDS: PARoxetine 10 MG TABLET 30 MG PO (11:21)
[2023-05-03] MEDS: PREGABALIN (*CRX) 75 MG CAPSULE 150 MG PO ×2 (11:21→18:14)
[2023-05-03] MEDS: ASCORBIC ACID 500 MG TABLET PO (11:22)
[2023-05-03] MEDS: ENOXAPARIN 40 MG/0.4 ML SYRINGE SUB-Q (11:24)
[2023-05-03] MEDS: FERROUS SULFATE 325 MG TABLET DR PO (11:28)
--- NOTE | 2023-05-03 11:38 | PCNFU ---
Nutrition Follow-Up Complete: Increased protein needs as related to wounds as evidenced by pressure ulcer reported. Goal: Adequate Intake of at least 75% of meals/supplements - Meeting goal, continue with same goal Pt current nutrition is NPO for surgery - Wound vac change, skin . Nutrition recommendation: Last recorded weight is 113.6 kg. Bowel Motility: + 1 BM 05/03/23 Labs Reviewed: Hct 9.8, Hct 32.5, Alb 2.9, BUN 38 Meds Noted: Zinc, Vit C, Vancomycin Skin: Pressure ulcer to sacrum - wound vac, s/p debridement Additional Notes: NPO today for surgery. Intakes have been good on Heart healthy diet, 100%. Venkatesh BID and Ensure Compact BID to resume when diet is advanced after procedure RD will monitor weight, labs, skin, oral intake, meds every 3 days.
[2023-05-03] MEDS: TIMOLOL MALEATE 0.5% OP SOLN 5 ML BOTTLE 1 DROP EACH EYE (11:40)
[2023-05-03] MEDS: LACTATED RINGERS 1,000 ML 30 ML IV CONT (14:00)
--- NOTE | 2023-05-03 14:13 | WPDANESEPPF ---
Anes - Initial Pre Proc Eval Procedure: Operation Date: 04/15/23 15:00 Proposed Procedures p Excisional Debridement Sacral Decubitis Ulcer - Porfirio Brown MD Operation Date: 04/19/23 14:30 Proposed Procedures p Laparoscopic End Colostomy, Possible Open - Porfirio Brown MD Operation Date: 04/22/23 15:00 Proposed Procedures p Debridement Sacral Wound, Possible Wound Vac Placement - Porfirio Brown MD Operation Date: 04/26/23 13:00 Proposed Procedures p Debridement Sacral Wound,Wound Vac Dressing Change - Porfirio Brown MD Operation Date: 04/29/23 12:00 Proposed Procedures p Debridement Sacral Wound, Wound Vac Dressing Change - Porfirio Brown MD Operation Date: 05/03/23 14:15 Proposed Procedures p Debride Sacral Wound, Application of Biological Graft, Wound Vac Dressing Change - Porfirio Brown MD Date/Time: 05/03/23 14:13 Surgeon: Jcarlos Mayfield MD Pre Op Diagnosis: UTI, Wound Infection, Wound to Buttock Patient Data Age: 63 Gender: M Height: 1.75 m Weight: 113.6 kg Last Vital Signs Temp 36.0 C L 05/03/23 05:43 Pulse 77 05/03/23 05:43 Resp 18 05/03/23 05:43 BP 109/50 L 05/03/23 05:43 Pulse Ox 93 05/03/23 05:43 O2 Del Method Room Air 05/02/23 20:00 O2 Flow Rate 2 04/29/23 14:45 FiO2 21 05/02/23 08:32 Allergies Allergy/AdvReac Type Severity Reaction Status Date / Time allopurinol Allergy Unknown Rash Verified 04/29/23 10:59 carbamazepine Allergy Unknown Rash Verified 04/29/23 10:59 cyclobenzaprine Allergy Unknown Rash Verified 04/29/23 10:59 diclofenac Allergy Unknown Rash Verified 04/29/23 10:59 adhesive tape Allergy Rash Verified 04/29/23 10:59 Home Medications Medication Instructions Recorded Confirmed Type paroxetine HCl 30 mg tablet 30 mg PO DAILY 09/15/22 04/14/23 History simvastatin 20 mg tablet 20 mg PO DAILY 09/15/22 04/14/23 History trazodone 150 mg tablet 150 mg PO HS 09/15/22 04/14/23 History escitalopram oxalate 10 mg tablet 15 mg PO HS #30 tabs 10/03/23 01/17/24 Rx polyethylene glycol 3350 17 gram 17 g PO DAILY #30 ea 12/29/22 04/14/23 Rx oral powder packet (Miralax) pregabalin 75 mg capsule (Lyrica) 150 mg PO TID #30 caps 12/29/22 04/14/23 Rx tamsulosin 0.4 mg capsule 0.4 mg PO QHS #30 caps 12/29/22 04/14/23 Rx timolol maleate 0.5 % eye drops 1 drp EACH EYE QAM #1 mL 12/29/22 04/14/23 Rx amlodipine 5 mg tablet (Norvasc) 5 mg PO DAILY 04/04/23 04/14/23 History finasteride 5 mg tablet (Proscar) 5 mg PO QAM #30 tabs 04/08/23 04/14/23 Rx methocarbamol 750 mg tablet 1,500 mg PO TID PRN Bladder Spasms 04/08/23 04/14/23 Rx #30 tabs alprazolam 0.5 mg tablet 0.5 mg PO QID 04/14/23 04/14/23 History ascorbic acid (vitamin C) 500 mg 500 mg PO DAILY 04/14/23 04/14/23 History tablet collagenase clostridium histo. 250 1 applic topical DAILY 04/14/23 04/14/23 History unit/gram topical ointment (Santyl) ferrous sulfate 325 mg (65 mg 325 mg PO DAILY 04/14/23 04/14/23 History iron) tablet multivitamin with minerals 1 tablet PO DAILY 04/14/23 04/14/23 History (Multiple Vitamin-Minerals tablet) oxycodone 10 mg tablet 10 mg PO Q6H 04/14/23 04/14/23 History zinc sulfate 50 mg zinc (220 mg) 50 mg PO DAILY 04/14/23 04/14/23 History tablet Laboratory Tests 05/03/23 05:43 WBC 12.7 H K/mm3 (4.5-10.0) RBC 3.51 L M/mm3 (4.6-6.20) Hgb 9.8 L g/dL (14.0-18.0) Hct 32.5 L % (42.0-52.0) MCV 92.6 fl (80-100) MCH 27.9 pg (26-34) MCHC 30.2 L g/dl (32-36) RDW 16.5 H % (11.5-14.5) Plt Count 321 k/mm3 (150-375) MPV 9.3 fl (7.4-10.4) Immature Gran % (Auto) 1.1 H % (0-0.5) Neut % (Auto) 62.7 % (45.5-73.1) Lymph % (Auto) 23.3 % (18.3-44.2) Granite % (Auto) 8.5 % (2.6-8.5) Eos % (Auto) 4.0 % (0-4.4) Baso % (Auto) 0.4 % (0.2-1.2) Lymph # (Auto) 2.96 K/mm3 (0.9-3.2) Granite # (Auto) 1.1 H K/mm3 (0.1-0.6) Eos # (Auto) 0.5 H K/mm3 (0-0.3) Baso # (Auto) 0.
--- NOTE | 2023-05-03 14:33 | WPDHPUPDATE1 ---
History and Physical Update Update Date/Time: 05/03/23 14:33 History and Physical has been reviewed, including an updated exam of the patient. There are NO changes in the patient's condition. Risks, benefits, and alternatives have been discussed and questions answered. Patient agrees to proceed with procedure.
--- NOTE | 2023-05-03 16:43 | PM.IMPN ---
Progress Note: A&P Assessment and Plan (1) Wound infection: Code(s): T14.8XXA - Other injury of unspecified body region, initial encounter; L08.9 - Local infection of the skin and subcutaneous tissue, unspecified Status: Acute Assessment and Plan: Patient brought to the emergency room because of lethargy and concerns for infected sacral wound. Pelvic CT showed subcu fat stranding and soft tissue gas in the buttocks consistent with infection. No abscess no evidence of osteomyelitis. General surgery consulted. Blood cultures growing Staph epidermidis 1 bottle. Repeat blood cultures negative. Possibly a contaminant although difficult to tell. White count was elevated on admission 13K. Wound culture growing Pseudomonas and Bacteroides. Patient underwent debridement 04/15, 04/22, 04/26 and 04/29. Wound VAC in place Patient underwent diverting colostomy on 04/19 to assist with healing. WBC up again. Back from a sharp scissor debridement of muscle and subcutaneous tissue from sacral decubitus wound with application of Marigen biologic xenograft and change of wound VAC Continue Flagyl and ciprofloxacin for now Continue PT/OT in bed but no plans at this time for him to be up moving until okay with surgery (2) Sepsis: Code(s): A41.9 - Sepsis, unspecified organism Status: Acute Assessment and Plan: Sepsis present on admission with leukocytosis, lethargy and tachycardia. Related to infected sacral decubitus ulcer As above. (3) Chronic kidney disease: Code(s): N18.9 - Chronic kidney disease, unspecified Status: Acute Assessment and Plan: Renal function running 1-1.4 range. Creatinine climbed to 1.7 early in the hospital course but has returned to his baseline. 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 Last admission patient states he left the rehab facility AMA after pulling out his Durant catheter. CT of the pelvis on admission showed diffuse bladder wall thickening and mild bilateral hydronephrosis. Durant catheter was in place at the time. Cr remains within baseline Continue to monitor renal function, urine output and electrolytes. (4) Depression: Code(s): F32.A - Depression, unspecified Status: Acute Assessment and Plan: Patient with depression and history of suicidal attempt 03/20 with Tylenol. History of neurocognitive disorder Chart states he is on Lexapro as well which would be unusual to be on 2 SSRIs. Lexapro stopped. Mood stable. Continue Paxil and trazodone. Monitor (5) Urinary retention with incomplete bladder emptying: Code(s): R33.9 - Retention of urine, unspecified Status: Acute Assessment and Plan: As above BPH with urinary retention from possible neurogenic bladder He has recurrent hydronephrosis and BOAZ but better now that he is allowing Durant catheter to remain in place Discussed with him in detail the need to continue to have the Durant in place Continue Proscar. Continue to hold Flomax due to soft BP (6) Acute respiratory failure with hypercapnia: Code(s): J96.02 - Acute respiratory failure with hypercapnia Status: Acute Assessment and Plan: Acute hypercapnic respiratory failure on admission ABG showed hypoxemic respiratory failure with tachycardia and tachypnea on 5 L oxygen. CTA showed no pulmonary embolism but small pleural effusion. Found to be RSV positive Hypercapnia likely related to sedation improved with noninvasive BiPAP ventilatory support Pulmonary was consulted during the hospital stay Weaned off bipap. Refusing bipap now for YOSEPH treatment. Weaned to room air. Follow (7) Decubitus ulcer of sacral region, unstageable: Code(s): L89.150 - Pressure ulcer of sacral region, unstageable Status: Acute Assessment and Plan: As above Plan Hx of alcohol abuse YOSEPH - AHI of 96.6 suggestive of abimael
--- NOTE | 2023-05-03 16:50 | PM.OP ---
Procedure Note - Brief Procedure Note - Brief Date of procedure: 05/03/23 UTI, Wound Infection, Wound to Buttock Post-op diagnosis: Same Procedure performed: Sharp scissor debridement of muscle and subcutaneous tissue from sacral decubitus wound with application of Marigen biologic xenograft (136 sq cm) and change of wound VAC (172 sq cm). Surgeon: Porfirio Brown MD Anesthesia: GETA Implants: Marigen biologic xenograft 136 sq cm. Estimated blood loss (mL): 20 Urine output (mL): 1,000 Drains: No Packing: Yes (Wound VAC 172 sq cm) Pathology: None sent Complications: No immediate complications Condition: Stable Disposition: PACU
--- NOTE | 2023-05-03 20:03 | P.OP_ITS ---
Procedure Note - Detailed Date of Procedure 05/03/23 Pre-op Diagnosis UTI, Wound Infection, Wound to Buttock Post-op Diagnosis Same Procedure Performed Sharp scissor debridement of muscle and subcutaneous tissue from sacral decubitus wound with application of Marigen biologic xenograft (136 sq cm) and placement of wound VAC (172 sq cm). Surgeon Porfirio Brown MD Anesthesia General Indications Patient is a 63-year-old gentleman who has had multiple trips to the operating for debridement and changes of wound VAC to a very large stage IV sacral decubitus ulcer. Presents now for another debridement was application of a biologic xenograft and wound VAC change. Findings There was a small amount of necrotic tissue consisting of gluteal muscle tissue the patient is buttock as well as some necrotic subcutaneous tissue. This tissue was resected utilizing sharp scissor dissection. The resulting defect measured [id number] with an additional 8x4cm area the wound had no depth. About 60 % of the wound bed has granulation tissue. The sacrum is exposed. Description of Procedure After informed consent was obtained patient was brought to the operating room was placed under general endotracheal anesthesia placed prone on the operating table. The existing wound VAC was removed and there the lower back include the sacral decubitus wound, bilateral buttocks, the perianal region was then prepped and draped usual sterile fashion time-out was then performed correctly identifying the patient as well as procedure to be performed verifying that he was not need any perioperative IV antibiotics. I then proceeded to irrigate the wound and washout the Betadine which was used to prep the wound from the tissues. Multiple intraoperative photographs were then taken at the size of the wound. I then proceeded to with scissors some necrotic nonviable muscle tissue from the medial portion of the right gluteal muscle. Small amount of subcutaneous tissue was excised off as well. All this tissue was discarded. T here was some bleeding from the edges of the muscle and fat tissue. I then sized the plastic scrub portion of a scrub brush rough up the granulation tissue to cause it to have a bit of bleeding. I then placed a xenograft biologic tissue (Marigen) utilizing 2 pieces graft material. One piece of graft was 8x10cm and the other piece of graft was 8x7cm. The total surface area of the the nerve graft placed was 136 sq cm. It was secured in place with some interrupted 2-0 chromic sutures to base and edges of the wound. It was then covered with Adaptic gauze and then the wound VAC was then placed with black foam on top of the Adaptic. Clear adhesive dressing was then placed on top of the black foam to achieved a good seal. The foam was was to the patient's right hip. The resulting wound after debridement was [id number] with a maximal depth of 4cm. A very superficial portion of the wound measured 8x4cm with no depth. Total surface area of VAC placed was 172 sq cm. The patient tolerated the procedure well no complications. All sponges, needles, and instrument counts were correct at the end procedure. EBL was _20__cc. The patient was awakened and taken to recovery in stable and satisfactory condition. Implants Marigen xenograft, meshed 8 x 10 cm and 7 x 8 cm. Estimated Blood Loss 20 Urine Output 1,000 Drains No Packing Yes (Wound VAC) Pathology None sent Complications No immediate complications Condition Stable Disposition PACU [facility] Billing Surgery - Charge Forward: Surgery Billing
[2023-05-03] MEDS: traZODone HCL 50 MG TABLET 150 MG PO (20:31)
[2023-05-04 05:28] VITALS: BP 104/56; PULSE 71; RESP 20; TEMP 36.3; O2SAT 95
[2023-05-04] MEDS: CENTRAL LINE FLUSH 10 ML IV PUSH ×3 (05:40→22:54)
[2023-05-04] MEDS: oxyCODONE HCL (*CRX) 5 MG TAB IR 10 MG PO ×2 (05:40→12:48)
[2023-05-04] MEDS: metroNIDAZOLE 500 MG TABLET PO ×3 (05:40→22:54)
[2023-05-04 06:09] LABS: Hematocrit 32.9 % (42.0-52.0); Hemoglobin 10.1 g/dL (14.0-18.0); Mean Corpuscular HGB Conc 30.7 g/dl (32-36); Mean Corpuscular Hemoglobin 28.1 pg (26-34); Mean Corpuscular Volume 91.6 fl (80-100); Mean Platelet Volume 10.1 fl (7.4-10.4); Platelet Count Result 340 k/mm3 (150-375); Red Blood Count 3.59 M/mm3 (4.6-6.20); Red Cell Distribution Width 16.7 % (11.5-14.5); White Blood Count 13.9 K/mm3 (4.5-10.0)
[2023-05-04 06:21] LABS: Anion Gap 3 mmol/L (8-16); Blood Urea Nitrogen 36 mg/dL (9-20); Calcium 8.8 mg/dL (8.4-10.2); Carbon Dioxide 29 mmol/L (22-30); Chloride 105 mmol/L (98-107); Estimated CRCL calculation 64 ml/min; Estimated Glomerular Filt Rate 56; Glucose 99 mg/dL (65-110); Magnesium 1.9 mg/dL (1.6-2.3); Potassium 3.8 mmol/L (3.4-5.0); Sodium 137 mmol/L (137-145)
[2023-05-04 07:47] VITALS: BP 97/59; PULSE 78; RESP 16; TEMP 36.4; O2SAT 97
[2023-05-04] MEDS: SIMVASTATIN 20 MG TABLET PO (10:02)
[2023-05-04] MEDS: CIPROFLOXACIN 500 MG TAB PO ×2 (10:03→20:38)
[2023-05-04] MEDS: ALPRAZolam (*CRX) 0.5 MG TABLET PO ×4 (10:06→20:38)
[2023-05-04] MEDS: FINASTERIDE 5 MG TABLET PO (10:07)
[2023-05-04] MEDS: PREGABALIN (*CRX) 75 MG CAPSULE 150 MG PO ×3 (10:09→20:38)
[2023-05-04] MEDS: PARoxetine 10 MG TABLET 30 MG PO (10:11)
[2023-05-04] MEDS: THERAPEUTIC MULTIVITAMINS/MINERALS TAB (*BKC) 1 TABLET PO (10:12)
[2023-05-04] MEDS: ASCORBIC ACID 500 MG TABLET PO (10:13)
[2023-05-04] MEDS: ZINC SULFATE 220 MG CAPSULE PO (10:14)
[2023-05-04] MEDS: ENOXAPARIN 40 MG/0.4 ML SYRINGE SUB-Q (10:15)
[2023-05-04] MEDS: TIMOLOL MALEATE 0.5% OP SOLN 5 ML BOTTLE 1 DROP EACH EYE (10:17)
[2023-05-04 12:00] VITALS: BP 109/63; PULSE 84; RESP 16; TEMP 36.8; O2SAT 100
--- NOTE | 2023-05-04 12:26 | PM.IMPN ---
Progress Note: A&P Assessment and Plan (1) Wound infection: Code(s): T14.8XXA - Other injury of unspecified body region, initial encounter; L08.9 - Local infection of the skin and subcutaneous tissue, unspecified Status: Acute Assessment and Plan: Patient brought to the emergency room because of lethargy and concerns for infected sacral wound. Pelvic CT showed subcu fat stranding and soft tissue gas in the buttocks consistent with infection. No abscess no evidence of osteomyelitis. General surgery consulted. Blood cultures growing Staph epidermidis 1 bottle. Repeat blood cultures negative. Possibly a contaminant although difficult to tell. White count was elevated on admission. Wound culture growing Pseudomonas and Bacteroides. Patient underwent diverting colostomy on 04/19 to assist with healing. Patient underwent debridement 04/15, 04/22, 04/26, 04/29 and again yesterday with sharp scissor debridement of muscle and subcutaneous tissue from sacral decubitus wound with application of a biologic xenograft and change of wound VAC WBC up and down but running 11-13 range Continue Flagyl and ciprofloxacin for now Continue PT/OT in bed but no plans at this time for him to be up moving until okay with surgery (2) Sepsis: Code(s): A41.9 - Sepsis, unspecified organism Status: Acute Assessment and Plan: Sepsis present on admission with leukocytosis, lethargy and tachycardia. Related to infected sacral decubitus ulcer As above. (3) Chronic kidney disease: Code(s): N18.9 - Chronic kidney disease, unspecified Status: Acute Assessment and Plan: Renal function running 1-1.4 range. Creatinine climbed to 1.7 early in the hospital course but has returned to his baseline. 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 Last admission patient states he left the rehab facility AMA after pulling out his Durant catheter. CT of the pelvis on admission showed diffuse bladder wall thickening and mild bilateral hydronephrosis. Durant catheter was in place at the time. Cr remains within baseline Continue to monitor renal function, urine output and electrolytes. (4) Depression: Code(s): F32.A - Depression, unspecified Status: Acute Assessment and Plan: Patient with depression and history of suicidal attempt 03/20 with Tylenol. History of neurocognitive disorder Chart states he is on Lexapro as well which would be unusual to be on 2 SSRIs. Lexapro stopped. Mood stable. Continue Paxil and trazodone. Monitor (5) Urinary retention with incomplete bladder emptying: Code(s): R33.9 - Retention of urine, unspecified Status: Acute Assessment and Plan: As above BPH with urinary retention from possible neurogenic bladder He has recurrent hydronephrosis and BOAZ but better now that he is allowing Durant catheter to remain in place Discussed with him in detail the need to continue to have the Durant in place Continue Proscar. Continue to hold Flomax due to soft BP (6) Acute respiratory failure with hypercapnia: Code(s): J96.02 - Acute respiratory failure with hypercapnia Status: Acute Assessment and Plan: Acute hypercapnic respiratory failure on admission ABG showed hypoxemic respiratory failure with tachycardia and tachypnea on 5 L oxygen. CTA showed no pulmonary embolism but small pleural effusion. Found to be RSV positive Hypercapnia likely related to sedation improved with noninvasive BiPAP ventilatory support Pulmonary was consulted during the hospital stay Weaned off bipap. Refusing bipap now for YOSEPH treatment. Weaned to room air. Follow (7) Decubitus ulcer of sacral region, unstageable: Code(s): L89.150 - Pressure ulcer of sacral region, unstageable Status: Acute Assessment and Plan: As above Plan Hx of alcohol abuse YOSEPH - AHI of 96.6 suggestive of s
[2023-05-04] MEDS: FERROUS SULFATE 325 MG TABLET DR PO (12:50)
[2023-05-04 15:23] VITALS: BP 97/54; PULSE 82; RESP 16; TEMP 36.4; O2SAT 100
[2023-05-04 19:38] VITALS: BP 101/46; PULSE 82; RESP 16; TEMP 36.7; O2SAT 95
[2023-05-04] MEDS: FLUTICASONE PROPIONATE 0.05% NA SPR 16 GM BTL (*BKC) 1 SPRAY NASAL (20:38)
[2023-05-04] MEDS: traZODone HCL 50 MG TABLET 150 MG PO (20:38)
[2023-05-04 22:51] VITALS: BP 93/47
[2023-05-05 05:35] VITALS: BP 109/58; PULSE 75; O2SAT 95
[2023-05-05] MEDS: metroNIDAZOLE 500 MG TABLET PO ×3 (05:37→20:34)
[2023-05-05] MEDS: oxyCODONE HCL (*CRX) 5 MG TAB IR 10 MG PO ×2 (05:37→14:32)
[2023-05-05] MEDS: CENTRAL LINE FLUSH 10 ML IV PUSH ×3 (05:37→20:47)
[2023-05-05 06:08] VITALS: BP 95/53; PULSE 78; RESP 16; TEMP 36.3; O2SAT 96
[2023-05-05 09:51] VITALS: BP 99/50; PULSE 101; O2SAT 97
[2023-05-05] MEDS: SIMVASTATIN 20 MG TABLET PO (09:54)
[2023-05-05] MEDS: FINASTERIDE 5 MG TABLET PO (09:54)
[2023-05-05] MEDS: ALPRAZolam (*CRX) 0.5 MG TABLET PO ×4 (09:54→20:30)
[2023-05-05] MEDS: PARoxetine 10 MG TABLET 30 MG PO (09:54)
[2023-05-05] MEDS: THERAPEUTIC MULTIVITAMINS/MINERALS TAB (*BKC) 1 TABLET PO (09:55)
[2023-05-05] MEDS: TIMOLOL MALEATE 0.5% OP SOLN 5 ML BOTTLE 1 DROP EACH EYE (09:55)
[2023-05-05] MEDS: ENOXAPARIN 40 MG/0.4 ML SYRINGE SUB-Q (09:55)
[2023-05-05] MEDS: ASCORBIC ACID 500 MG TABLET PO (09:55)
[2023-05-05] MEDS: CIPROFLOXACIN 500 MG TAB PO ×2 (09:55→20:29)
[2023-05-05] MEDS: ZINC SULFATE 220 MG CAPSULE PO (09:55)
[2023-05-05 14:10] VITALS: BP 112/66; PULSE 84; O2SAT 99
--- NOTE | 2023-05-05 14:11 | PM.PNGS ---
Progress Note: A&P Assessment and Plan (1) Decubitus ulcer of sacral region, unstageable: Code(s): L89.150 - Pressure ulcer of sacral region, unstageable Status: Acute Assessment and Plan: Wound VAC functioning well.? It continues to keep good suction.? We will plan to change the wound VAC again Wednesday.? Plan is still to transfer to LTAC at [facility] in [place] once he is ready for discharge. Plan I have discussed the patient's case and plan of care with Dr. Brown. Subjective Subjective Date/Time Seen: 05/05/23 14:11 Patient reports: no new complaints and afebrile Interval history: Patient remains clinically stable. Ostomy functioning well. Wound VAC on sacral decubitus ulcer her keeping to suction without any issues. Exam Narrative: Wound VAC on sacral decubitus ulcer on buttocks with serosanguineous drainage in canister. Objective Data Vital Signs Vital Signs: Vital Signs - 24 hr 05/04/23 15:23 05/04/23 19:38 05/04/23 22:51 Temperature 97.5 F L 98.0 F Pulse Rate 82 82 Respiratory Rate 16 16 Blood Pressure 97/54 L 101/46 L 93/47 L Pulse Oximetry 100 95 Oxygen Delivery 05/04/23 20:00 05/05/23 05:35 05/05/23 06:08 Temperature 97.4 F L Pulse Rate 75 78 Respiratory Rate 16 Blood Pressure 109/58 L 95/53 L Pulse Oximetry 95 96 Oxygen Delivery Room Air 05/05/23 09:51 05/05/23 14:10 Temperature Pulse Rate 101 H 84 Respiratory Rate Blood Pressure 99/50 L 112/66 Pulse Oximetry 97 99 Oxygen Delivery Intake/Output Intake/Output: Intake & Output 05/02/23 05/03/23 05/04/23 05/05/23 23:59 23:59 23:59 23:59 Intake Total 9341 140 9705 490 Output Total 2900 3830 1000 500 Balance -1520 -3040 250 -10 Meds/Results Medications: Active Medications Generic Name Dose Route Start Last Admin Trade Name Freq PRN Reason Stop Dose Admin Hydrocodone Bitart/Acetaminophen 1 tab 04/20/23 12:13 04/30/23 21:13 Hydrocodone/Acetaminophen (*Crx) 5-325 Mg Tablet PO 1 tab Q4H PRN Administration Pain Rated 4-6 Albuterol 2.5 mg 04/17/23 11:23 Albuterol Sulfate Neb 2.5 Mg/3 Ml Inh INHALATION Q6HRT PRN Shortness Of Breath Albuterol/Ipratropium 3 ml 04/29/23 06:57 Ipratropium 0.5 Mg/Albuterol Sulfate 2.5 Mg Ampul.Neb 3 Ml INHALATION Q6HRT PRN Shortness Of Breath Or Wheezing Alprazolam 0.5 mg 04/15/23 09:00 05/05/23 09:54 Alprazolam (*Crx) 0.5 Mg Tablet PO 0.5 mg QID ANNE Administration Alteplase, Recombinant 2 mg 04/26/23 21:50 04/27/23 00:09 Alteplase 2 Mg Vial (Cathflo) IV PUSH 2 mg ONCE PRN Administration Line Occlusion Ascorbic Acid 500 mg 04/15/23 09:00 05/05/23 09:55 Ascorbic Acid 500 Mg Tablet PO 500 mg DAILY ANNE Administration Ciprofloxacin 500 mg 04/23/23 12:30 05/05/23 09:55 Ciprofloxacin 500 Mg Tab PO 500 mg Q12HR ANNE Administration Enoxaparin Sodium 40 mg 04/23/23 09:00 05/05/23 09:55 Enoxaparin 40 Mg/0.4 Ml Syringe SUB-Q 40 mg DAILY ANNE Administration Ferrous Sulfate 325 mg 04/15/23 12:00 05/04/23 12:50 Ferrous Sulfate [address] PO 325 mg DAILY@1200 ANNE Administration Finasteride 5 mg 04/15/23 09:00 05/05/23 09:54 Finasteride 5 Mg Tablet PO 5 mg QAM [facility] Administration Fluticasone Propionate 1 spray 04/27/23 21:00 05/05/23 09:53 Fluticasone Propionate 0.05% Na Spr 16 Gm Btl (*Bkc) NASAL Not Given Q12HR [facility] Methocarbamol 1,500 mg 04/15/23 00:15 Methocarbamol 750 Mg Tablet PO TID PRN Bladder Spasms Metronidazole 500 mg 04/23/23 14:00 05/05/23 05:37 Metronidazole 500 Mg Tablet PO 500 mg Q8HR ANNE Administration Multivitamins/Calcium 1 tablet 04/15/23 09:00 05/05/23 09:55 Therapeutic Multivitamins/Minerals Tab (*Bkc) PO 1 tablet DAILY ANNE Administration Oxycodone HCl 10 mg 04/15/23 00:15 05/05/23 05:37 Oxycodone Hcl (*Crx) 5 Mg Tab Ir PO 10 mg Q6HR S
[2023-05-05 14:15] VITALS: BP 112/66; PULSE 84; RESP 16; TEMP 36.4; O2SAT 99
[2023-05-05] MEDS: PREGABALIN (*CRX) 75 MG CAPSULE 150 MG PO ×2 (14:32→17:39)
[2023-05-05] MEDS: FERROUS SULFATE 325 MG TABLET DR PO (14:32)
[2023-05-05 17:57] LABS: Basophils Percent Auto 0.3 % (0.2-1.2); Eosinophils Absolute Auto 0.6 K/mm3 (0-0.3); Eosinophils Percent Auto 4.7 % (0-4.4); Hematocrit 32.6 % (42.0-52.0); Hemoglobin 9.9 g/dL (14.0-18.0); Immature Granulocyte Percent A 0.8 % (0-0.5); Lymphocytes Absolute Auto 2.48 K/mm3 (0.9-3.2); Lymphocytes Percent Auto 19.3 % (18.3-44.2); Mean Corpuscular HGB Conc 30.4 g/dl (32-36); Mean Corpuscular Hemoglobin 27.9 pg (26-34); Mean Corpuscular Volume 91.8 fl (80-100); Mean Platelet Volume 10.1 fl (7.4-10.4); Monocytes Absolute Auto 0.9 K/mm3 (0.1-0.6); Monocytes Percent Auto 7.3 % (2.6-8.5); Neutrophils Absolute Auto 8.7 K/mm3 (1.3-6.7); Neutrophils Percent Auto 67.6 % (45.5-73.1); Platelet Count Result 312 k/mm3 (150-375); Red Blood Count 3.55 M/mm3 (4.6-6.20); White Blood Count 12.8 K/mm3 (4.5-10.0)
[2023-05-05 18:11] LABS: Alanine Aminotransferase 12 U/L (6-50); Alkaline Phosphatase 113 U/L (38-126); Anion Gap 5 mmol/L (8-16); Aspartate Amino Transferase 29 U/L (17-59); Bilirubin,Total 0.5 mg/dL (0.2-1.3); Blood Urea Nitrogen 38 mg/dL (9-20); Calcium 8.7 mg/dL (8.4-10.2); Carbon Dioxide 27 mmol/L (22-30); Chloride 106 mmol/L (98-107); Estimated CRCL calculation 69 ml/min; Estimated Glomerular Filt Rate > 60; Glucose 149 mg/dL (65-110); Potassium 3.6 mmol/L (3.4-5.0); Sodium 138 mmol/L (137-145)
[2023-05-05 18:58] VITALS: BP 99/54
[2023-05-05] MEDS: traZODone HCL 50 MG TABLET 150 MG PO (20:20)
[2023-05-06] MEDS: metroNIDAZOLE 500 MG TABLET PO ×3 (06:15→23:07)
[2023-05-06] MEDS: CENTRAL LINE FLUSH 10 ML IV PUSH ×3 (06:17→21:13)
[2023-05-06] MEDS: oxyCODONE HCL (*CRX) 5 MG TAB IR 10 MG PO ×4 (06:21→23:07)
--- NOTE | 2023-05-06 07:59 | P.PNIM_ITS ---
Progress Note: A&P Assessment and Plan (1) Wound infection: Code(s): T14.8XXA - Other injury of unspecified body region, initial encounter; L08.9 - Local infection of the skin and subcutaneous tissue, unspecified Status: Acute Assessment and Plan: Patient brought to the emergency room because of lethargy and concerns for infected sacral wound. Pelvic CT showed subcu fat stranding and soft tissue gas in the buttocks consistent with infection. No abscess no evidence of osteomyelitis. General surgery consulted. Blood cultures growing Staph epidermidis 1 bottle. Repeat blood cultures negative. Possibly a contaminant although difficult to tell. White count was elevated on admission. Wound culture growing Pseudomonas and Bacteroides. Patient underwent diverting colostomy on 04/19 to assist with healing. Patient underwent debridement 04/15, 04/22, 04/26, 04/29 and again yesterday with sharp scissor debridement of muscle and subcutaneous tissue from sacral decubitus wound with application of a biologic xenograft and change of wound VAC WBC up and down but running 11-13 range Continue Flagyl and ciprofloxacin for now Continue PT/OT in bed but no plans at this time for him to be up moving until o kelsey with surgery 05/06/23: WoundVac changed tomorrow, per general surgery (2) Sepsis: Code(s): A41.9 - Sepsis, unspecified organism Status: Acute Assessment and Plan: Sepsis present on admission with leukocytosis, lethargy and tachycardia. Related to infected sacral decubitus ulcer As above. (3) Chronic kidney disease: Code(s): N18.9 - Chronic kidney disease, unspecified Status: Acute Assessment and Plan: Renal function running 1-1.4 range. Creatinine climbed to 1.7 early in the hospital course but has returned to his baseline. 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 Last admission patient states he left the rehab facility AMA after pulling out his Durant catheter. CT of the pelvis on admission showed diffuse bladder wall thickening and mild bilateral hydronephrosis. Durant catheter was in place at the time. Cr remains within baseline Continue to monitor renal function, urine output and electrolytes. (4) Depression: Code(s): F32.A - Depression, unspecified Status: Acute Assessment and Plan: Patient with depression and history of suicidal attempt 03/20 with Tylenol. History of neurocognitive disorder Chart states he is on Lexapro as well which would be unusual to be on 2 SSRIs. Lexapro stopped. Mood stable. Continue Paxil and trazodone. Monitor (5) Urinary retention with incomplete bladder emptying: Code(s): R33.9 - Retention of urine, unspecified Status: Acute Assessment and Plan: As above BPH with urinary retention from possible neurogenic bladder He has recurrent hydronephrosis and BOAZ but better now that he is allowing Durant catheter to remain in place Discussed with him in detail the need to continue to have the Durant in place Continue Proscar. Continue to hold Flomax due to soft BP (6) Acute respiratory failure with hypercapnia: Code(s): J96.02 - Acute respiratory failure with hypercapnia Status: Acute Assessment and Plan: Acute hypercapnic respiratory failure on admission ABG showed hypoxemic respiratory failure with tachycardia and tachypnea on 5 L oxygen. CTA showed no pulmonary embolism but small pleural effusion. Found to be RSV positive Hypercapnia likely related to sedation improved with noninvasive
[2023-05-06 08:00] VITALS: BP 110/58; PULSE 80; RESP 17; TEMP 36.4; O2SAT 98
[2023-05-06] MEDS: FINASTERIDE 5 MG TABLET PO (08:33)
[2023-05-06] MEDS: THERAPEUTIC MULTIVITAMINS/MINERALS TAB (*BKC) 1 TABLET PO (08:33)
[2023-05-06] MEDS: SIMVASTATIN 20 MG TABLET PO (08:33)
[2023-05-06] MEDS: ASCORBIC ACID 500 MG TABLET PO (08:33)
[2023-05-06] MEDS: ALPRAZolam (*CRX) 0.5 MG TABLET PO ×4 (08:33→21:12)
[2023-05-06] MEDS: CIPROFLOXACIN 500 MG TAB PO ×2 (08:34→21:12)
[2023-05-06] MEDS: ZINC SULFATE 220 MG CAPSULE PO (08:34)
[2023-05-06] MEDS: PARoxetine 10 MG TABLET 30 MG PO (08:34)
[2023-05-06] MEDS: FLUTICASONE PROPIONATE 0.05% NA SPR 16 GM BTL (*BKC) 1 SPRAY NASAL (08:35)
[2023-05-06] MEDS: ENOXAPARIN 40 MG/0.4 ML SYRINGE SUB-Q (08:35)
[2023-05-06] MEDS: PREGABALIN (*CRX) 75 MG CAPSULE 150 MG PO ×3 (08:44→17:46)
[2023-05-06] MEDS: TIMOLOL MALEATE 0.5% OP SOLN 5 ML BOTTLE 1 DROP EACH EYE (08:44)
[2023-05-06 09:18] LABS: Basophils Absolute Auto 0.1 K/mm3 (0.0-0.1); Basophils Percent Auto 0.4 % (0.2-1.2); Eosinophils Absolute Auto 0.6 K/mm3 (0-0.3); Eosinophils Percent Auto 5.2 % (0-4.4); Hematocrit 32.1 % (42.0-52.0); Hemoglobin 9.8 g/dL (14.0-18.0); Immature Granulocyte Absolute 0.09 K/mm3 (0.00-0.031); Immature Granulocyte Percent A 0.8 % (0-0.5); Lymphocytes Absolute Auto 1.96 K/mm3 (0.9-3.2); Lymphocytes Percent Auto 16.6 % (18.3-44.2); Mean Corpuscular HGB Conc 30.5 g/dl (32-36); Mean Corpuscular Volume 91.7 fl (80-100); Mean Platelet Volume 9.7 fl (7.4-10.4); Monocytes Absolute Auto 0.7 K/mm3 (0.1-0.6); Monocytes Percent Auto 5.8 % (2.6-8.5); Neutrophils Absolute Auto 8.4 K/mm3 (1.3-6.7); Neutrophils Percent Auto 71.2 % (45.5-73.1); Platelet Count Result 258 k/mm3 (150-375); White Blood Count 11.8 K/mm3 (4.5-10.0)
[2023-05-06 09:27] LABS: Alanine Aminotransferase 13 U/L (6-50); Albumin Level 3.1 g/dL (3.5-5.1); Alkaline Phosphatase 105 U/L (38-126); Anion Gap 5 mmol/L (8-16); Aspartate Amino Transferase 31 U/L (17-59); Bilirubin,Total 0.4 mg/dL (0.2-1.3); Blood Urea Nitrogen 33 mg/dL (9-20); Calcium 8.8 mg/dL (8.4-10.2); Carbon Dioxide 30 mmol/L (22-30); Chloride 106 mmol/L (98-107); Estimated CRCL calculation 75 ml/min; Estimated Glomerular Filt Rate > 60; Glucose 126 mg/dL (65-110); Potassium 3.5 mmol/L (3.4-5.0); Sodium 141 mmol/L (137-145)
[2023-05-06] MEDS: FERROUS SULFATE 325 MG TABLET DR PO (13:08)
[2023-05-06 16:00] VITALS: BP 115/60; PULSE 85; RESP 18; TEMP 36.5; O2SAT 100
[2023-05-06 19:44] VITALS: BP 101/50; PULSE 85; RESP 18; TEMP 36.6; O2SAT 97
[2023-05-06] MEDS: traZODone HCL 50 MG TABLET 150 MG PO (21:12)
[2023-05-07 03:06] VITALS: BP 100/50; PULSE 74; RESP 18; TEMP 36.4; O2SAT 98
[2023-05-07] MEDS: oxyCODONE HCL (*CRX) 5 MG TAB IR 10 MG PO ×4 (05:36→23:00)
[2023-05-07] MEDS: metroNIDAZOLE 500 MG TABLET PO ×3 (05:36→22:51)
[2023-05-07] MEDS: CENTRAL LINE FLUSH 10 ML IV PUSH ×3 (05:37→22:51)
[2023-05-07 05:42] LABS: Basophils Percent Auto 0.3 % (0.2-1.2); Eosinophils Absolute Auto 0.7 K/mm3 (0-0.3); Eosinophils Percent Auto 6.4 % (0-4.4); Hematocrit 30.1 % (42.0-52.0); Hemoglobin 9.2 g/dL (14.0-18.0); Immature Granulocyte Absolute 0.08 K/mm3 (0.00-0.031); Immature Granulocyte Percent A 0.8 % (0-0.5); Lymphocytes Absolute Auto 2.63 K/mm3 (0.9-3.2); Lymphocytes Percent Auto 24.7 % (18.3-44.2); Mean Corpuscular HGB Conc 30.6 g/dl (32-36); Mean Corpuscular Hemoglobin 28.4 pg (26-34); Mean Corpuscular Volume 92.9 fl (80-100); Mean Platelet Volume 10.1 fl (7.4-10.4); Monocytes Absolute Auto 0.9 K/mm3 (0.1-0.6); Monocytes Percent Auto 8.3 % (2.6-8.5); Neutrophils Absolute Auto 6.3 K/mm3 (1.3-6.7); Neutrophils Percent Auto 59.5 % (45.5-73.1); Platelet Count Result 273 k/mm3 (150-375); Red Blood Count 3.24 M/mm3 (4.6-6.20); Red Cell Distribution Width 17.1 % (11.5-14.5); White Blood Count 10.6 K/mm3 (4.5-10.0)
[2023-05-07 05:53] LABS: Alanine Aminotransferase 10 U/L (6-50); Albumin Level 2.9 g/dL (3.5-5.1); Alkaline Phosphatase 102 U/L (38-126); Anion Gap 3 mmol/L (8-16); Aspartate Amino Transferase 27 U/L (17-59); Bilirubin,Total 0.4 mg/dL (0.2-1.3); Blood Urea Nitrogen 36 mg/dL (9-20); Calcium 8.7 mg/dL (8.4-10.2); Carbon Dioxide 30 mmol/L (22-30); Chloride 105 mmol/L (98-107); Estimated CRCL calculation 75 ml/min; Estimated Glomerular Filt Rate > 60; Glucose 97 mg/dL (65-110); Potassium 3.5 mmol/L (3.4-5.0); Sodium 138 mmol/L (137-145)
[2023-05-07 08:00] VITALS: PULSE 74; RESP 18; O2SAT 98
[2023-05-07] MEDS: CIPROFLOXACIN 500 MG TAB PO ×2 (09:26→20:41)
[2023-05-07] MEDS: THERAPEUTIC MULTIVITAMINS/MINERALS TAB (*BKC) 1 TABLET PO (09:26)
[2023-05-07] MEDS: ZINC SULFATE 220 MG CAPSULE PO (09:26)
[2023-05-07] MEDS: PREGABALIN (*CRX) 75 MG CAPSULE 150 MG PO ×3 (09:26→17:38)
[2023-05-07] MEDS: PARoxetine 10 MG TABLET 30 MG PO (09:26)
[2023-05-07] MEDS: ALPRAZolam (*CRX) 0.5 MG TABLET PO ×4 (09:27→20:41)
[2023-05-07] MEDS: SIMVASTATIN 20 MG TABLET PO (09:27)
[2023-05-07] MEDS: FINASTERIDE 5 MG TABLET PO (09:27)
[2023-05-07] MEDS: ASCORBIC ACID 500 MG TABLET PO (09:27)
[2023-05-07] MEDS: TIMOLOL MALEATE 0.5% OP SOLN 5 ML BOTTLE 1 DROP EACH EYE (09:28)
[2023-05-07] MEDS: ENOXAPARIN 40 MG/0.4 ML SYRINGE SUB-Q (09:37)
[2023-05-07] MEDS: MORPHINE SULFATE (*CRX) 4 MG/ML INJ IV PUSH (11:55)
--- NOTE | 2023-05-07 12:05 | PCNFU ---
Nutrition Follow-Up Complete: Increased protein needs as related to wounds as evidenced by pressure ulcer reported. Goal: Adequate Intake of at least 75% of meals/supplements Patient is meeting goal. No new goal. Pt current nutrition is Heart Healthy. Nutrition recommendation: Venkatesh BID Last recorded weight is 113.6 kg. no new weight to report. Recommend: reweigh. Bowel Motility:+Bm reported 05/06 Labs Reviewed:BUN 36, Alb 2.9,Hct 30.1,Hgb 9.2 Meds Noted:Vit C, MVI, Zinc, Lyrica Skin: Georges buttock-stage III pressure ulcer. wound vac change today per nursing. Additional Notes:Patient remains on a heart healthy diet with Ensure compact TID. Intake good 90-100% of meals. Order for Venkatesh BID for wound healing, providing an additional 90 kcals and 2.5 gms protein. Agree with diet orders. RD will monitor weight, labs, skin, oral intake, meds every 5 days.
--- NOTE | 2023-05-07 12:31 | WPDPN ---
Progress Note: A&P Assessment and Plan (1) Decubitus ulcer of sacral region, unstageable: Code(s): L89.150 - Pressure ulcer of sacral region, unstageable Status: Acute Assessment and Plan: Patient did have some duration of the xenograft on the areas of the wound that had granulation tissue. He did tolerate wound VAC change at the bedside for the 1st time. We will plan on taking back to operative on Wednesday 05/10 for another application of the xenograft. Wound VAC will be changed to that time. I would expect by next week 05/13 we change the wound VAC again at the bedside and he can be transferred to [facility] later that day or the next day assuming availability of a bed. Continue current supportive management at this time. Subjective Date/time seen: 05/07/23 12:31 Interval history: Patient is doing well. Wound VAC was removed today and he tolerated wound VAC change the bedside. The the xeno graft had a bowel 50% take. Wound appears clean. Good granulation tissue was noted in the inner buttock regions. The tissue over the sacrum has no necrotic tissue but only very minimal granulation tissue at this time. Exam Skin: Other: Sacral decubitus wound and buttock wounds have good granulation tissue on the inner buttock regions. Deeper central portion of the wound over the sacrum has only minimal to granulation tissue. On the right inner buttock region the the xeno graft for coverage had some good integration. Possibly 50% the graft had integration. Measurements of the wound as per the wound care nurse's notes. Objective Data Vital Signs Vital Signs: Vital Signs - 24 hr 05/06/23 16:00 05/06/23 19:44 05/06/23 20:00 Temperature 36.5 C 36.6 C Pulse Rate 85 85 Respiratory Rate 18 18 Blood Pressure 115/60 101/50 L Pulse Oximetry 100 97 Oxygen Delivery Room Air 05/07/23 03:06 05/07/23 08:00 Temperature 36.4 C Pulse Rate 74 74 Respiratory Rate 18 18 Blood Pressure 100/50 L Pulse Oximetry 98 98 Oxygen Delivery Room Air Intake/Output Intake/Output: Intake & Output 05/04/23 05/05/23 05/06/23 05/07/23 23:59 23:59 23:59 23:59 Intake Total 1250 1090 2190 290 Output Total 1000 1700 2550 850 Balance 250 -610 -360 -560 Meds/Results Medications: Active Medications Generic Name Dose Route Start Last Admin Trade Name Freq PRN Reason Stop Dose Admin Hydrocodone Bitart/Acetaminophen 1 tab 04/20/23 12:13 04/30/23 21:13 Hydrocodone/Acetaminophen (*Crx) 5-325 Mg Tablet PO 1 tab Q4H PRN Administration Pain Rated 4-6 Albuterol 2.5 mg 04/17/23 11:23 Albuterol Sulfate Neb 2.5 Mg/3 Ml Inh INHALATION Q6HRT PRN Shortness Of Breath Albuterol/Ipratropium 3 ml 04/29/23 06:57 Ipratropium 0.5 Mg/Albuterol Sulfate 2.5 Mg Ampul.Neb 3 Ml INHALATION Q6HRT PRN Shortness Of Breath Or Wheezing Alprazolam 0.5 mg 04/15/23 09:00 05/07/23 09:27 Alprazolam (*Crx) 0.5 Mg Tablet PO 0.5 mg QID ANNE Administration Alteplase, Recombinant 2 mg 04/26/23 21:50 04/27/23 00:09 Alteplase 2 Mg Vial (Cathflo) IV PUSH 2 mg ONCE PRN Administration Line Occlusion Ascorbic Acid 500 mg 04/15/23 09:00 05/07/23 09:27 Ascorbic Acid 500 Mg Tablet PO 500 mg DAILY ANNE Administration Ciprofloxacin 500 mg 04/23/23 12:30 05/07/23 09:26 Ciprofloxacin 500 Mg Tab PO 500 mg Q12HR ANNE Administration Enoxaparin Sodium 40 mg 04/23/23 09:00 05/07/23 09:37 Enoxaparin 40 Mg/0.4 Ml Syringe SUB-Q 40 mg DAILY ANNE Administration Ferrous Sulfate 325 mg 04/15/23 12:00 05/06/23 13:08 Ferrous Sulfate [address] PO 325 mg DAILY@1200 [facility] Administration Finasteride 5 mg 04/15/23 09:00 05/07/23 09:27 Finasteride 5 Mg Tablet PO 5 mg QAM ANNE Administration Fluticasone Propionate 1 spray 04/27/23 21:00 05/07/23 09:27 Fluticasone Propionate 0.05% Na Spr 16 Gm Btl (*Bkc) NASAL Not Given Q12H
[2023-05-07] MEDS: FERROUS SULFATE 325 MG TABLET DR PO (12:42)
[2023-05-07 15:25] VITALS: BP 96/51; PULSE 84; RESP 16; TEMP 36.2; O2SAT 100
[2023-05-07 19:41] VITALS: BP 104/48; PULSE 83; RESP 16; TEMP 36.6; O2SAT 97
[2023-05-07] MEDS: HYDROcodone/acetaminophen (*CRX) 5-325 MG TABLET 1 TAB PO (19:49)
[2023-05-07] MEDS: traZODone HCL 50 MG TABLET 150 MG PO (20:41)
[2023-05-08 04:27] VITALS: BP 103/61; PULSE 75; RESP 16; TEMP 36.4; O2SAT 96
[2023-05-08] MEDS: metroNIDAZOLE 500 MG TABLET PO ×3 (05:24→23:03)
[2023-05-08] MEDS: CENTRAL LINE FLUSH 10 ML IV PUSH ×3 (05:24→23:03)
[2023-05-08] MEDS: oxyCODONE HCL (*CRX) 5 MG TAB IR 10 MG PO ×4 (05:24→23:03)
[2023-05-08 05:45] LABS: Basophils Percent Auto 0.3 % (0.2-1.2); Eosinophils Absolute Auto 0.6 K/mm3 (0-0.3); Eosinophils Percent Auto 5.6 % (0-4.4); Hematocrit 31.6 % (42.0-52.0); Hemoglobin 9.8 g/dL (14.0-18.0); Immature Granulocyte Absolute 0.09 K/mm3 (0.00-0.031); Immature Granulocyte Percent A 0.8 % (0-0.5); Lymphocytes Percent Auto 24.6 % (18.3-44.2); Mean Corpuscular Hemoglobin 28.2 pg (26-34); Mean Corpuscular Volume 90.8 fl (80-100); Monocytes Absolute Auto 0.9 K/mm3 (0.1-0.6); Monocytes Percent Auto 8.2 % (2.6-8.5); Neutrophils Absolute Auto 6.6 K/mm3 (1.3-6.7); Neutrophils Percent Auto 60.5 % (45.5-73.1); Platelet Count Result 286 k/mm3 (150-375); Red Blood Count 3.48 M/mm3 (4.6-6.20); Red Cell Distribution Width 17.1 % (11.5-14.5)
[2023-05-08 05:58] LABS: Alanine Aminotransferase 11 U/L (6-50); Albumin Level 2.8 g/dL (3.5-5.1); Alkaline Phosphatase 105 U/L (38-126); Anion Gap 4 mmol/L (8-16); Aspartate Amino Transferase 29 U/L (17-59); Bilirubin,Total 0.5 mg/dL (0.2-1.3); Blood Urea Nitrogen 38 mg/dL (9-20); Carbon Dioxide 29 mmol/L (22-30); Chloride 105 mmol/L (98-107); Estimated CRCL calculation 75 ml/min; Estimated Glomerular Filt Rate > 60; Glucose 97 mg/dL (65-110); Potassium 3.5 mmol/L (3.4-5.0); Sodium 138 mmol/L (137-145)
[2023-05-08] MEDS: ALPRAZolam (*CRX) 0.5 MG TABLET PO ×4 (10:06→20:45)
[2023-05-08] MEDS: HYDROcodone/acetaminophen (*CRX) 5-325 MG TABLET 1 TAB PO (10:06)
[2023-05-08] MEDS: ZINC SULFATE 220 MG CAPSULE PO (10:06)
[2023-05-08] MEDS: PARoxetine 10 MG TABLET 30 MG PO (10:06)
[2023-05-08] MEDS: CIPROFLOXACIN 500 MG TAB PO ×2 (10:06→20:45)
[2023-05-08] MEDS: SIMVASTATIN 20 MG TABLET PO (10:06)
[2023-05-08] MEDS: THERAPEUTIC MULTIVITAMINS/MINERALS TAB (*BKC) 1 TABLET PO (10:07)
[2023-05-08] MEDS: FINASTERIDE 5 MG TABLET PO (10:07)
[2023-05-08] MEDS: ENOXAPARIN 40 MG/0.4 ML SYRINGE SUB-Q (10:07)
[2023-05-08] MEDS: ASCORBIC ACID 500 MG TABLET PO (10:07)
[2023-05-08] MEDS: PREGABALIN (*CRX) 75 MG CAPSULE 150 MG PO ×3 (10:07→17:32)
[2023-05-08] MEDS: TIMOLOL MALEATE 0.5% OP SOLN 5 ML BOTTLE 1 DROP EACH EYE (10:08)
[2023-05-08] MEDS: FLUTICASONE PROPIONATE 0.05% NA SPR 16 GM BTL (*BKC) 1 SPRAY NASAL (10:08)
[2023-05-08] MEDS: FERROUS SULFATE 325 MG TABLET DR PO (13:02)
[2023-05-08 14:02] VITALS: BP 93/52; PULSE 88; RESP 18; TEMP 36.5; O2SAT 100
--- NOTE | 2023-05-08 14:47 | P.PNIM_ITS ---
Progress Note: A&P Assessment and Plan (1) Wound infection: Code(s): T14.8XXA - Other injury of unspecified body region, initial encounter; L08.9 - Local infection of the skin and subcutaneous tissue, unspecified Status: Acute Assessment and Plan: Patient brought to the emergency room because of lethargy and concerns for infected sacral wound. Pelvic CT showed subcu fat stranding and soft tissue gas in the buttocks consistent with infection. No abscess no evidence of osteomyelitis. General surgery consulted. Blood cultures growing Staph epidermidis 1 bottle. Repeat blood cultures negative. Possibly a contaminant although difficult to tell. White count was elevated on admission. Wound culture growing Pseudomonas and Bacteroides. Patient underwent diverting colostomy on 04/19 to assist with healing. Patient underwent debridement 04/15, 04/22, 04/26, 04/29 and again yesterday with sharp scissor debridement of muscle and subcutaneous tissue from sacral decubitus wound with application of a biologic xenograft and change of wound VAC WBC up and down but running 11-13 range Continue Flagyl and ciprofloxacin for now Continue PT/OT in bed but no plans at this time for him to be up moving until o kelsey with surgery 05/07/23: WoundVac changed, per general surgery (2) Sepsis: Code(s): A41.9 - Sepsis, unspecified organism Status: Acute Assessment and Plan: Sepsis present on admission with leukocytosis, lethargy and tachycardia. Related to infected sacral decubitus ulcer Improving 05/08/23: Ciprofloxacin, Metronidazole Pseudomonas spp, Bacterroides spp (3) Chronic kidney disease: Code(s): N18.9 - Chronic kidney disease, unspecified Status: Acute Assessment and Plan: Renal function running 1-1.4 range. Creatinine climbed to 1.7 early in the hospital course but has returned to his baseline. 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 Last admission patient states he left the rehab facility AMA after pulling out his Durant catheter. CT of the pelvis on admission showed diffuse bladder wall thickening and mild bilateral hydronephrosis. Durant catheter was in place at the time. Cr remains within baseline Continue to monitor renal function, urine output and electrolytes. 05/08/23: Avoid nephrotoxins (4) Depression: Code(s): F32.A - Depression, unspecified Status: Acute Assessment and Plan: Patient with depression and history of suicidal attempt 03/20 with Tylenol. History of neurocognitive disorder Chart states he is on Lexapro as well which would be unusual to be on 2 SSRIs. Lexapro stopped. Mood stable. Continue Paxil and trazodone. Monitor (5) Urinary retention with incomplete bladder emptying: Code(s): R33.9 - Retention of urine, unspecified Status: Acute Assessment and Plan: As above BPH with urinary retention from possible neurogenic bladder He has recurrent hydronephrosis and BOAZ but better now that he is allowing Durant catheter to remain in place Discussed with him in detail the need to continue to have the Durant in place Continue Proscar. Continue to hold Flomax due to soft BP (6) Acute respiratory failure with hypercapnia: Code(s): J96.02 - Acute respiratory failure with hypercapnia Status: Acute Assessment and Plan: Acute hypercapnic respiratory failure on admission ABG showed hypoxemic respiratory failure with tachycardia and tachypnea on 5 L oxygen. CTA showed no pulmonary embolism but small pleural effusion. Fo
[2023-05-08 20:00] VITALS: BP 107/48; PULSE 86; RESP 16; TEMP 36.7; O2SAT 95
[2023-05-08] MEDS: traZODone HCL 50 MG TABLET 150 MG PO (20:47)
[2023-05-09 03:29] LABS: Basophils Percent Auto 0.4 % (0.2-1.2); Eosinophils Absolute Auto 0.7 K/mm3 (0-0.3); Eosinophils Percent Auto 6.7 % (0-4.4); Hematocrit 29.5 % (42.0-52.0); Immature Granulocyte Absolute 0.06 K/mm3 (0.00-0.031); Immature Granulocyte Percent A 0.6 % (0-0.5); Lymphocytes Absolute Auto 2.65 K/mm3 (0.9-3.2); Lymphocytes Percent Auto 25.1 % (18.3-44.2); Mean Corpuscular HGB Conc 30.5 g/dl (32-36); Mean Corpuscular Hemoglobin 27.9 pg (26-34); Mean Corpuscular Volume 91.3 fl (80-100); Mean Platelet Volume 10.1 fl (7.4-10.4); Monocytes Absolute Auto 0.9 K/mm3 (0.1-0.6); Monocytes Percent Auto 8.1 % (2.6-8.5); Neutrophils Absolute Auto 6.3 K/mm3 (1.3-6.7); Neutrophils Percent Auto 59.1 % (45.5-73.1); Platelet Count Result 257 k/mm3 (150-375); Red Blood Count 3.23 M/mm3 (4.6-6.20); White Blood Count 10.6 K/mm3 (4.5-10.0)
[2023-05-09] MEDS: HYDROcodone/acetaminophen (*CRX) 5-325 MG TABLET 1 TAB PO ×2 (03:34→20:38)
[2023-05-09 03:39] LABS: Alanine Aminotransferase 11 U/L (6-50); Albumin Level 2.9 g/dL (3.5-5.1); Alkaline Phosphatase 99 U/L (38-126); Anion Gap 3 mmol/L (8-16); Aspartate Amino Transferase 36 U/L (17-59); Bilirubin,Total 0.4 mg/dL (0.2-1.3); Blood Urea Nitrogen 39 mg/dL (9-20); Calcium 8.9 mg/dL (8.4-10.2); Carbon Dioxide 29 mmol/L (22-30); Chloride 106 mmol/L (98-107); Estimated CRCL calculation 82 ml/min; Estimated Glomerular Filt Rate > 60; Glucose 98 mg/dL (65-110); Potassium 3.5 mmol/L (3.4-5.0); Sodium 138 mmol/L (137-145)
[2023-05-09 04:26] VITALS: BP 96/62; PULSE 75; RESP 16; TEMP 36.4; O2SAT 96
[2023-05-09] MEDS: CENTRAL LINE FLUSH 10 ML IV PUSH ×3 (06:09→20:40)
[2023-05-09] MEDS: metroNIDAZOLE 500 MG TABLET PO ×3 (06:09→20:39)
[2023-05-09] MEDS: oxyCODONE HCL (*CRX) 5 MG TAB IR 10 MG PO ×4 (06:09→23:10)
[2023-05-09] MEDS: PREGABALIN (*CRX) 75 MG CAPSULE 150 MG PO ×3 (08:07→17:27)
[2023-05-09] MEDS: ZINC SULFATE 220 MG CAPSULE PO (08:08)
[2023-05-09] MEDS: THERAPEUTIC MULTIVITAMINS/MINERALS TAB (*BKC) 1 TABLET PO (08:08)
[2023-05-09] MEDS: FINASTERIDE 5 MG TABLET PO (08:08)
[2023-05-09] MEDS: FLUTICASONE PROPIONATE 0.05% NA SPR 16 GM BTL (*BKC) 1 SPRAY NASAL ×2 (08:08→20:40)
[2023-05-09] MEDS: ASCORBIC ACID 500 MG TABLET PO (08:08)
[2023-05-09] MEDS: ALPRAZolam (*CRX) 0.5 MG TABLET PO ×4 (08:08→20:39)
[2023-05-09] MEDS: CIPROFLOXACIN 500 MG TAB PO ×2 (08:08→20:39)
[2023-05-09] MEDS: SIMVASTATIN 20 MG TABLET PO (08:08)
[2023-05-09] MEDS: ENOXAPARIN 40 MG/0.4 ML SYRINGE SUB-Q (08:08)
[2023-05-09] MEDS: PARoxetine 10 MG TABLET 30 MG PO (08:08)
[2023-05-09] MEDS: TIMOLOL MALEATE 0.5% OP SOLN 5 ML BOTTLE 1 DROP EACH EYE (08:08)
[2023-05-09] MEDS: FERROUS SULFATE 325 MG TABLET DR PO (13:02)
[2023-05-09 14:59] VITALS: BP 101/53; PULSE 82; RESP 20; TEMP 36.6; O2SAT 100
[2023-05-09 19:46] VITALS: BP 117/49; PULSE 87; RESP 18; TEMP 37; O2SAT 97
[2023-05-09] MEDS: traZODone HCL 50 MG TABLET 150 MG PO (20:39)
[2023-05-10] VITALS (10 sets, daily range): BP systolic 97–134; BP diastolic 50–86; PULSE 80–93; RESP 14–18; TEMP 36.2–36.7; O2SAT 95–100
[2023-05-10] MEDS: oxyCODONE HCL (*CRX) 5 MG TAB IR 10 MG PO ×4 (05:04→23:18)
[2023-05-10] MEDS: metroNIDAZOLE 500 MG TABLET PO ×2 (05:04→20:03)
[2023-05-10] MEDS: CENTRAL LINE FLUSH 20 ML IV PUSH (05:06)
[2023-05-10] MEDS: CENTRAL LINE FLUSH 10 ML IV PUSH ×3 (05:06→20:04)
[2023-05-10 05:35] LABS: Basophils Percent Auto 0.2 % (0.2-1.2); Eosinophils Absolute Auto 0.8 K/mm3 (0-0.3); Hematocrit 30.6 % (42.0-52.0); Hemoglobin 9.3 g/dL (14.0-18.0); Immature Granulocyte Absolute 0.08 K/mm3 (0.00-0.031); Immature Granulocyte Percent A 0.8 % (0-0.5); Lymphocytes Absolute Auto 2.68 K/mm3 (0.9-3.2); Lymphocytes Percent Auto 27.2 % (18.3-44.2); Mean Corpuscular HGB Conc 30.4 g/dl (32-36); Mean Corpuscular Hemoglobin 28.3 pg (26-34); Monocytes Absolute Auto 0.8 K/mm3 (0.1-0.6); Monocytes Percent Auto 8.2 % (2.6-8.5); Neutrophils Absolute Auto 5.5 K/mm3 (1.3-6.7); Neutrophils Percent Auto 55.6 % (45.5-73.1); Platelet Count Result 263 k/mm3 (150-375); Red Blood Count 3.29 M/mm3 (4.6-6.20); Red Cell Distribution Width 17.2 % (11.5-14.5); White Blood Count 9.9 K/mm3 (4.5-10.0)
[2023-05-10 05:43] LABS: Alanine Aminotransferase 11 U/L (6-50); Albumin Level 2.9 g/dL (3.5-5.1); Alkaline Phosphatase 98 U/L (38-126); Anion Gap 4 mmol/L (8-16); Aspartate Amino Transferase 31 U/L (17-59); Bilirubin,Total 0.3 mg/dL (0.2-1.3); Blood Urea Nitrogen 39 mg/dL (9-20); Calcium 8.8 mg/dL (8.4-10.2); Carbon Dioxide 30 mmol/L (22-30); Chloride 106 mmol/L (98-107); Estimated CRCL calculation 75 ml/min; Estimated Glomerular Filt Rate > 60; Glucose 95 mg/dL (65-110); Potassium 3.5 mmol/L (3.4-5.0); Sodium 140 mmol/L (137-145)
[2023-05-10] MEDS: ALPRAZolam (*CRX) 0.5 MG TABLET PO ×4 (10:15→20:03)
[2023-05-10] MEDS: PREGABALIN (*CRX) 75 MG CAPSULE 150 MG PO ×2 (10:15→18:25)
[2023-05-10] MEDS: TIMOLOL MALEATE 0.5% OP SOLN 5 ML BOTTLE 1 DROP EACH EYE (10:16)
--- NOTE | 2023-05-10 11:59 | PM.IMPN ---
Progress Note: A&P Assessment and Plan (1) Wound infection: Code(s): T14.8XXA - Other injury of unspecified body region, initial encounter; L08.9 - Local infection of the skin and subcutaneous tissue, unspecified Status: Acute Assessment and Plan: Patient brought to the emergency room because of lethargy and concerns for infected sacral wound. Pelvic CT showed subcu fat stranding and soft tissue gas in the buttocks consistent with infection. No abscess no evidence of osteomyelitis. General surgery consulted. Blood cultures growing Staph epidermidis 1 bottle. Repeat blood cultures negative. Possibly a contaminant although difficult to tell. White count was elevated on admission. Wound culture growing Pseudomonas and Bacteroides. Patient underwent diverting colostomy on 04/19 to assist with healing. Patient underwent debridement 04/15, 04/22, 04/26, 04/29 and again yesterday with sharp scissor debridement of muscle and subcutaneous tissue from sacral decubitus wound with application of a biologic xenograft and change of wound VAC WBC up and down but running 11-13 range Continue Flagyl and ciprofloxacin for now Continue PT/OT in bed but no plans at this time for him to be up moving until okay with surgery 05/07/23: WoundVac changed, per general surgery 05/10/21: Awaiting grafting today. (2) Sepsis: Code(s): A41.9 - Sepsis, unspecified organism Status: Acute Assessment and Plan: Sepsis present on admission with leukocytosis, lethargy and tachycardia. Related to infected sacral decubitus ulcer Improving 05/08/23: Ciprofloxacin, Metronidazole Pseudomonas spp, Bacterroides spp (3) Chronic kidney disease: Code(s): N18.9 - Chronic kidney disease, unspecified Status: Acute Assessment and Plan: Renal function running 1-1.4 range. Creatinine climbed to 1.7 early in the hospital course but has returned to his baseline. 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 Last admission patient states he left the rehab facility AMA after pulling out his Durant catheter. CT of the pelvis on admission showed diffuse bladder wall thickening and mild bilateral hydronephrosis. Durant catheter was in place at the time. Cr remains within baseline Continue to monitor renal function, urine output and electrolytes. 05/08/23: Avoid nephrotoxins (4) Depression: Code(s): F32.A - Depression, unspecified Status: Acute Assessment and Plan: Patient with depression and history of suicidal attempt 03/20 with Tylenol. History of neurocognitive disorder Chart states he is on Lexapro as well which would be unusual to be on 2 SSRIs. Lexapro stopped. Mood stable. Continue Paxil and trazodone. Monitor (5) Urinary retention with incomplete bladder emptying: Code(s): R33.9 - Retention of urine, unspecified Status: Acute Assessment and Plan: As above BPH with urinary retention from possible neurogenic bladder He has recurrent hydronephrosis and BOAZ but better now that he is allowing Durant catheter to remain in place Discussed with him in detail the need to continue to have the Durant in place Continue Proscar. Continue to hold Flomax due to soft BP (6) Acute respiratory failure with hypercapnia: Code(s): J96.02 - Acute respiratory failure with hypercapnia Status: Acute Assessment and Plan: Acute hypercapnic respiratory failure on admission ABG showed hypoxemic respiratory failure with tachycardia and tachypnea on 5 L oxygen. CTA showed no pulmonary embolism but small pleural effusion. Found to be RSV positive Hypercapnia likely related to sedation improved with noninvasive BiPAP ventilatory support Pulmonary was consulted during the hospital stay Weaned off bipap. Refusing bipap now for YOSEPH treatment. Weaned to room air. Follow (7) Decubitus ulcer of sacral region, unstageable: Code(s):
[2023-05-10] MEDS: FLUTICASONE PROPIONATE 0.05% NA SPR 16 GM BTL (*BKC) 1 SPRAY NASAL (12:10)
[2023-05-10] MEDS: LACTATED RINGERS 1,000 ML 30 ML IV CONT (14:00)
--- NOTE | 2023-05-10 14:24 | WPDANESEPPF ---
Anes - Initial Pre Proc Eval Procedure: Operation Date: 05/10/23 15:00 Proposed Procedures p Debridement of Sacral Wound with Wound Vac Dressing Change - Porfirio Brown MD Date/Time: 05/10/23 14:24 Surgeon: Kevin Pre Op Diagnosis: UTI, Wound Infection, Wound to Buttock Patient Data Age: 63 Gender: M Height: 1.75 m Weight: 113.6 kg Last Vital Signs Temp 36.3 C L 05/10/23 05:17 Pulse 80 05/10/23 05:17 Resp 18 05/10/23 05:17 BP 130/60 05/10/23 05:17 Pulse Ox 95 05/10/23 05:17 O2 Del Method Room Air 05/10/23 08:15 O2 Flow Rate 8 05/03/23 16:21 FiO2 21 05/08/23 20:00 Allergies Allergy/AdvReac Type Severity Reaction Status Date / Time allopurinol Allergy Unknown Rash Verified 04/29/23 10:59 carbamazepine Allergy Unknown Rash Verified 04/29/23 10:59 cyclobenzaprine Allergy Unknown Rash Verified 04/29/23 10:59 diclofenac Allergy Unknown Rash Verified 04/29/23 10:59 adhesive tape Allergy Rash Verified 04/29/23 10:59 Home Medications Medication Instructions Recorded Confirmed Type paroxetine HCl 30 mg tablet 30 mg PO DAILY 09/15/22 04/14/23 History simvastatin 20 mg tablet 20 mg PO DAILY 09/15/22 04/14/23 History trazodone 150 mg tablet 150 mg PO HS 09/15/22 04/14/23 History escitalopram oxalate 10 mg tablet 15 mg PO HS #30 tabs 12/29/22 04/14/23 Rx polyethylene glycol 3350 17 gram 17 g PO DAILY #30 ea 12/29/22 04/14/23 Rx oral powder packet (Miralax) pregabalin 75 mg capsule (Lyrica) 150 mg PO TID #30 caps 12/29/22 04/14/23 Rx tamsulosin 0.4 mg capsule 0.4 mg PO QHS #30 caps 12/29/22 04/14/23 Rx timolol maleate 0.5 % eye drops 1 drp EACH EYE QAM #1 mL 12/29/22 04/14/23 Rx amlodipine 5 mg tablet (Norvasc) 5 mg PO DAILY 04/04/23 04/14/23 History finasteride 5 mg tablet (Proscar) 5 mg PO QAM #30 tabs 04/08/23 04/14/23 Rx methocarbamol 750 mg tablet 1,500 mg PO TID PRN Bladder Spasms 04/08/23 04/14/23 Rx #30 tabs alprazolam 0.5 mg tablet 0.5 mg PO QID 04/14/23 04/14/23 History ascorbic acid (vitamin C) 500 mg 500 mg PO DAILY 04/14/23 04/14/23 History tablet collagenase clostridium histo. 250 1 applic topical DAILY 04/14/23 04/14/23 History unit/gram topical ointment (Santyl) ferrous sulfate 325 mg (65 mg 325 mg PO DAILY 04/14/23 04/14/23 History iron) tablet multivitamin with minerals 1 tablet PO DAILY 04/14/23 04/14/23 History (Multiple Vitamin-Minerals tablet) oxycodone 10 mg tablet 10 mg PO Q6H 04/14/23 04/14/23 History zinc sulfate 50 mg zinc (220 mg) 50 mg PO DAILY 04/14/23 04/14/23 History tablet Laboratory Tests 05/10/23 05:11 WBC 9.9 K/mm3 (4.5-10.0) RBC 3.29 L M/mm3 (4.6-6.20) Hgb 9.3 L g/dL (14.0-18.0) Hct 30.6 L % (42.0-52.0) MCV 93.0 fl (80-100) MCH 28.3 pg (26-34) MCHC 30.4 L g/dl (32-36) RDW 17.2 H % (11.5-14.5) Plt Count 263 k/mm3 (150-375) MPV 10.0 fl (7.4-10.4) Immature Gran % (Auto) 0.8 H % (0-0.5) Neut % (Auto) 55.6 % (45.5-73.1) Lymph % (Auto) 27.2 % (18.3-44.2) [place] % (Auto) 8.2 % (2.6-8.5) Eos % (Auto) 8.0 H % (0-4.4) Baso % (Auto) 0.2 % (0.2-1.2) Lymph # (Auto) 2.68 K/mm3 (0.9-3.2) [place] # (Auto) 0.8 H K/mm3 (0.1-0.6) Eos # (Auto) 0.8 H K/mm3 (0-0.3) Baso # (Auto) 0.0 K/mm3 (0.0-0.1) Abs Immat Gran (auto) 0.08 H K/mm3 (0.00-0.031) Absolute Neuts (auto) 5.5 K/mm3 (1.3-6.7) Absolute Nucleated RBC 0.0 K/mm3 (0.0-0.012) Nucleated RBC % 0.0 % (0.0-0.2) Sodium 140 mmol/L (137-145) Potassium 3.5 mmol/L (3.4-5.0) Chloride 106 mmol/L (98-107) Carbon Dioxide 30 mmol/L (22-30) Anion Gap 4 L mmol/L (8-16) BUN 39 H mg/dL (9-20) Creatinine 1.10 mg/dL (0.7-1.3) Estim Creat Clear Calc 75 ml/min Estimated GFR > 60 (59 - ) Glucose 95 mg/dL (65-110) Calcium 8.8 mg/dL (8.4-10.2) Total Bilirubin 0.3 mg/dL (0.2-1.3) AST 31 U/L (17-5
--- NOTE | 2023-05-10 14:56 | WPDHPUPDATE1 ---
History and Physical Update Update Date/Time: 05/10/23 14:56 History and Physical has been reviewed, including an updated exam of the patient. There are NO changes in the patient's condition. Risks, benefits, and alternatives have been discussed and questions answered. Patient agrees to proceed with procedure.
--- NOTE | 2023-05-10 14:57 | WPDPN ---
Progress Note: A&P Assessment and Plan (1) Decubitus ulcer of sacral region, unstageable: Code(s): L89.150 - Pressure ulcer of sacral region, unstageable Status: Acute Assessment and Plan: Stable clinically. Had Xenograft placed on well granulated areas of the wound last week. Had about 40-50% incorporation of the graft. Will take to OR today for scheduled placement of additional xenograft and wound vac change and debridement of any non viable tissue if any is present. Subjective Date/time seen: 05/10/23 14:57 Interval history: Patient clinically stable. Wound VAC in place. White blood cell count normal. No complaints. Exam Skin: Other: Wound VAC place on large sacral decubitus wound. Suction was holding. Objective Data Vital Signs Vital Signs: Vital Signs - 24 hr 05/09/23 14:59 05/09/23 19:46 05/10/23 05:17 Temperature 36.6 C 37.0 C 36.3 C L Pulse Rate 82 87 80 Respiratory Rate 20 18 18 Blood Pressure 101/53 L 117/49 L 130/60 Pulse Oximetry 100 97 95 Oxygen Delivery 05/10/23 08:15 05/10/23 14:00 Temperature 36.4 C Pulse Rate 82 Respiratory Rate 18 Blood Pressure 128/86 Pulse Oximetry 100 Oxygen Delivery Room Air Room Air Intake/Output Intake/Output: Intake & Output 05/07/23 05/08/23 05/09/23 05/10/23 23:59 23:59 23:59 23:59 Intake Total 1570 2450 1550 Output Total 1850 2400 2300 4850 Balance -280 50 750 -2723 Meds/Results Medications: Active Medications Generic Name Dose Route Start Last Admin Trade Name Freq PRN Reason Stop Dose Admin Hydrocodone Bitart/Acetaminophen 1 tab 04/20/23 12:13 05/09/23 20:38 Hydrocodone/Acetaminophen (*Crx) 5-325 Mg Tablet PO 05/20/23 23:59 1 tab Q4H PRN Administration Pain Rated 4-6 Albuterol 2.5 mg 04/17/23 11:23 Albuterol Sulfate Neb 2.5 Mg/3 Ml Inh INHALATION Q6HRT PRN Shortness Of Breath Albuterol/Ipratropium 3 ml 04/29/23 06:57 Ipratropium 0.5 Mg/Albuterol Sulfate 2.5 Mg Ampul.Neb 3 Ml INHALATION Q6HRT PRN Shortness Of Breath Or Wheezing Alprazolam 0.5 mg 04/15/23 09:00 05/10/23 12:10 Alprazolam (*Crx) 0.5 Mg Tablet PO 0.5 mg QID ANNE Administration Alteplase, Recombinant 2 mg 04/26/23 21:50 04/27/23 00:09 Alteplase 2 Mg Vial (Cathflo) IV PUSH 2 mg ONCE PRN Administration Line Occlusion Ascorbic Acid 500 mg 04/15/23 09:00 05/09/23 08:08 Ascorbic Acid 500 Mg Tablet PO 500 mg DAILY ANNE Administration Ciprofloxacin 500 mg 04/23/23 12:30 05/09/23 20:39 Ciprofloxacin 500 Mg Tab PO 500 mg Q12HR ANNE Administration Enoxaparin Sodium 40 mg 04/23/23 09:00 05/09/23 08:08 Enoxaparin 40 Mg/0.4 Ml Syringe SUB-Q 40 mg DAILY ANNE Administration Fentanyl Citrate 25 mcg 05/10/23 14:30 Fentanyl Citrate Inj (*Crx) 100 Mcg/2 Ml Vial IV PUSH Q2M PRN Pain Ferrous Sulfate 325 mg 04/15/23 12:00 05/09/23 13:02 Ferrous Sulfate [address] PO 325 mg DAILY@1200 ANNE Administration Finasteride 5 mg 04/15/23 09:00 05/09/23 08:08 Finasteride 5 Mg Tablet PO 5 mg QAM ANNE Administration Fluticasone Propionate 1 spray 04/27/23 21:00 05/10/23 12:10 Fluticasone Propionate 0.05% Na Spr 16 Gm Btl (*Bkc) NASAL 1 spray Q12HR ANNE Administration Lactated Ringer's 1,000 mls @ 30 mls/hr 05/10/23 14:30 05/10/23 14:00 Lr - Lactated Ringers Iv IV CONT 30 mls/hr .Q24H ANNE Administration Lactated Ringer's 1,000 mls @ 30 mls/hr 05/10/23 14:30 Lr - Lactated Ringers Iv IV CONT .Q24H ANNE Methocarbamol 1,500 mg 04/15/23 00:15 Methocarbamol 750 Mg Tablet PO TID PRN Bladder Spasms Metronidazole 500 mg 04/23/23 14:00 05/10/23 05:04 Metronidazole 500 Mg Tablet PO 500 mg Q8HR ANNE Administration Multivitamins/Calcium 1 tablet 04/15/23 09:00 05/09/23 08:08 Therapeutic Multivitamins/Minerals Tab (*Bkc) PO 1 tablet DAILY ANNE Administrat
[2023-05-10] MEDS: PARoxetine 10 MG TABLET 30 MG PO (18:23)
[2023-05-10] MEDS: ZINC SULFATE 220 MG CAPSULE PO (18:23)
[2023-05-10] MEDS: ASCORBIC ACID 500 MG TABLET PO (18:23)
[2023-05-10] MEDS: FINASTERIDE 5 MG TABLET PO (18:23)
[2023-05-10] MEDS: THERAPEUTIC MULTIVITAMINS/MINERALS TAB (*BKC) 1 TABLET PO (18:23)
[2023-05-10] MEDS: SIMVASTATIN 20 MG TABLET PO (18:23)
[2023-05-10] MEDS: FERROUS SULFATE 325 MG TABLET DR PO (18:25)
--- NOTE | 2023-05-10 18:36 | W.PM.PROC2 ---
Procedure Note - Detailed Date of Procedure 05/10/23 Pre-op Diagnosis UTI, Wound Infection, Wound to Buttock Post-op Diagnosis Same Procedure Performed Sharp scissor excisional debridement of muscle and subcutaneous tissue from sacral decubitus ulcer with application of Marigen xenograft and change of wound VAC. Surgeon Porfirio Brown MD Anesthesia General Indications Patient has a large stage IV sacral decubitus wound which also involves the bilateral inner buttocks and perianal region. This will be his 4th trip to the operating room for treatment of the wound. Second application Marigen xenograft, and 4th application of wound VAC in the operating. Findings Overall the patient has about 50 to 75% coverage of the base of the wound with good granulation tissue. A portion of the medial right gluteal muscle and sacrum remained without significant granulation tissue. There is no fecal contamination is the patient has a diverting end colostomy. The wound now measures approximately 24l30cc. The deepest portion was still measures about 3cm in depth. Two pieces of Marigen xenograft which was meshed was placed over the areas that had good granulation tissue to encourage faster healing and wound coverage. The total area covered by the graft was approximately 190 sq cm. The application of wound Back covered approximately 190 sq cm. Description of Procedure after informed consent was obtained from the patient he was then brought to the operating room placed under general endotracheal anesthesia on the bed and then turned in the prone position on operating table. Great care was taken make sure all the pressure points well padded. Time-out was then performed correctly identifying the patient and the procedure to be performed. He was not given any IV antibiotics. The area was then prepped and draped usual sterile fashion. I then irrigated the wound to get out the Betadine prep. Assessing the wound I would say that 50 to 75% of the base of the wound had good granulation tissue. The depth of the wound made from just a few mm all the way down to about 3cm. The wound measured approximately 16cm in length by 12cm in width. The areas of the wound that did not have much granulation tissue present was over the sacrum and around the medial edge of the right gluteal muscle. I did sharply debrided with scissors a small portion of the medial portion of the gluteal muscle and the subcutaneous tissues around it. This tissue was discarded. I then proceeded to apply the Marigen meshed xenograft. 2 pieces of the meshed graft measured 8x10cm were utilized. With the meshing of the graft it would stretch and cover much larger area than the original size of the graft. I placed the graft over the areas of good granulation tissue for tissue coverage. I secured the graft at the edges and in the central portions with interrupted 3-0 chromic sutures stretching out the graft to cover the most surface area that I could possibly cover. After all of the graft was secured in place I measured the areas that were covered and it was approximately 200 sq cm. I then placed a nonadhesive dressing on top of the xenograft and then placed black foam over the top of the nonadhesive dressings and over the portions the wound that did not have significant granulation tissue which were not covered with the xenograft. Clear adhesive dressings were then placed over the black foam to achieve an airtight nonleaking wound VAC dressing. The wound VAC was lateralized to the patient's right hip region so that he would not lay on the suction tubing. The wound VAC was placed [id number] continuous suction. The the total area current medical records approximately 192 sq cm. The patient tolerated the procedure well no complications. All sponges, needles, and instrument counts were correct at the end procedure. EBL was _20__cc. The patient was awakened and taken to recovery in stable and sat
[2023-05-10] MEDS: traZODone HCL 50 MG TABLET 150 MG PO (20:03)
[2023-05-10] MEDS: CIPROFLOXACIN 500 MG TAB PO (20:04)
[2023-05-11 03:52] VITALS: BP 102/45; PULSE 73; RESP 17; TEMP 36.4; O2SAT 96
[2023-05-11] MEDS: metroNIDAZOLE 500 MG TABLET PO ×3 (05:04→23:07)
[2023-05-11] MEDS: oxyCODONE HCL (*CRX) 5 MG TAB IR 10 MG PO ×4 (05:04→23:07)
[2023-05-11] MEDS: CENTRAL LINE FLUSH 10 ML IV PUSH ×3 (05:05→23:07)
[2023-05-11] MEDS: CENTRAL LINE FLUSH 20 ML IV PUSH (05:05)
[2023-05-11 05:20] LABS: Basophils Percent Auto 0.3 % (0.2-1.2); Eosinophils Absolute Auto 0.6 K/mm3 (0-0.3); Eosinophils Percent Auto 6.2 % (0-4.4); Hematocrit 30.8 % (42.0-52.0); Hemoglobin 9.4 g/dL (14.0-18.0); Immature Granulocyte Absolute 0.05 K/mm3 (0.00-0.031); Immature Granulocyte Percent A 0.5 % (0-0.5); Lymphocytes Absolute Auto 1.52 K/mm3 (0.9-3.2); Lymphocytes Percent Auto 15.8 % (18.3-44.2); Mean Corpuscular HGB Conc 30.5 g/dl (32-36); Mean Corpuscular Hemoglobin 28.5 pg (26-34); Mean Corpuscular Volume 93.3 fl (80-100); Mean Platelet Volume 9.3 fl (7.4-10.4); Monocytes Absolute Auto 0.8 K/mm3 (0.1-0.6); Monocytes Percent Auto 8.1 % (2.6-8.5); Neutrophils Absolute Auto 6.7 K/mm3 (1.3-6.7); Neutrophils Percent Auto 69.1 % (45.5-73.1); Platelet Count Result 256 k/mm3 (150-375); Red Cell Distribution Width 17.3 % (11.5-14.5); White Blood Count 9.7 K/mm3 (4.5-10.0)
[2023-05-11 05:39] LABS: Alanine Aminotransferase 11 U/L (6-50); Albumin Level 2.9 g/dL (3.5-5.1); Alkaline Phosphatase 99 U/L (38-126); Anion Gap 3 mmol/L (8-16); Aspartate Amino Transferase 35 U/L (17-59); Bilirubin,Total 0.4 mg/dL (0.2-1.3); Blood Urea Nitrogen 32 mg/dL (9-20); Calcium 8.5 mg/dL (8.4-10.2); Carbon Dioxide 30 mmol/L (22-30); Chloride 109 mmol/L (98-107); Estimated CRCL calculation 75 ml/min; Estimated Glomerular Filt Rate > 60; Glucose 95 mg/dL (65-110); Potassium 3.9 mmol/L (3.4-5.0); Sodium 142 mmol/L (137-145)
[2023-05-11 08:00] VITALS: BP 100/56; PULSE 75; RESP 15; TEMP 36.4; O2SAT 96
[2023-05-11 08:06] VITALS: RESP 18; O2SAT 96
[2023-05-11] MEDS: ALPRAZolam (*CRX) 0.5 MG TABLET PO ×4 (10:27→21:30)
[2023-05-11] MEDS: SIMVASTATIN 20 MG TABLET PO (10:27)
[2023-05-11] MEDS: FINASTERIDE 5 MG TABLET PO (10:28)
[2023-05-11] MEDS: PREGABALIN (*CRX) 75 MG CAPSULE 150 MG PO ×3 (10:29→16:48)
[2023-05-11] MEDS: PARoxetine 10 MG TABLET 30 MG PO (10:30)
[2023-05-11] MEDS: THERAPEUTIC MULTIVITAMINS/MINERALS TAB (*BKC) 1 TABLET PO (10:32)
[2023-05-11] MEDS: ZINC SULFATE 220 MG CAPSULE PO (10:33)
[2023-05-11] MEDS: CIPROFLOXACIN 500 MG TAB PO ×2 (10:33→21:30)
[2023-05-11] MEDS: ASCORBIC ACID 500 MG TABLET PO (10:34)
[2023-05-11] MEDS: ENOXAPARIN 40 MG/0.4 ML SYRINGE SUB-Q (10:35)
[2023-05-11] MEDS: TIMOLOL MALEATE 0.5% OP SOLN 5 ML BOTTLE 1 DROP EACH EYE (10:37)
[2023-05-11 11:31] VITALS: BP 117/65; PULSE 110; RESP 14; TEMP 36.4; O2SAT 100
--- NOTE | 2023-05-11 12:05 | WPDANESPN ---
Anes - Prog Note Post-Op Date/Time: 05/11/23 12:05 Cardiovascular status: normal Respiratory status: normal Airway patency: baseline Mental status: baseline Post-Op hydration status: normal Vital Signs: Last Vital Signs Temp 36.4 C 05/11/23 11:31 Pulse 110 H 05/11/23 11:31 Resp 14 05/11/23 11:31 BP 117/65 05/11/23 11:31 Pulse Ox 100 05/11/23 11:31 O2 Del Method Room Air 05/11/23 08:06 O2 Flow Rate 6 05/10/23 17:35 FiO2 21 05/08/23 20:00 Pain Score (VAS): Patient asleep at time of rounding. No nonverbal signs of pain present at that time. I/O: Intake & Output 05/10/23 05/11/23 05/11/23 23:59 07:59 15:59 Intake Total 790 150 240 Output Total 2260 610 200 Balance -1470 -460 40 Laboratory Tests 05/11/23 05:12 05/11/23 05:12 05/11/23 05:12 WBC 9.7 RBC 3.30 L Hgb 9.4 L Hct 30.8 L MCV 93.3 MCH 28.5 MCHC 30.5 L RDW 17.3 H Plt Count 256 MPV 9.3 Immature Gran % (Auto) 0.5 Neut % (Auto) 69.1 Lymph % (Auto) 15.8 L [place] % (Auto) 8.1 Eos % (Auto) 6.2 H Baso % (Auto) 0.3 Lymph # (Auto) 1.52 [place] # (Auto) 0.8 H Eos # (Auto) 0.6 H Baso # (Auto) 0.0 Abs Immat Gran (auto) 0.05 H Absolute Neuts (auto) 6.7 Absolute Nucleated RBC 0.0 Nucleated RBC % 0.0 Sodium 142 Potassium 3.9 Chloride 109 H Carbon Dioxide 30 Anion Gap 3 L BUN 32 H Creatinine 1.10 Estim Creat Clear Calc 75 Estimated GFR > 60 Glucose 95 Calcium 8.5 Total Bilirubin 0.4 AST 35 ALT 11 Alkaline Phosphatase 99 Total Protein 6.0 L Albumin 2.9 L Post-procedural complaints: none Patient Feedback: Patient satisfied with anesthetic care.
[2023-05-11] MEDS: FERROUS SULFATE 325 MG TABLET DR PO (12:15)
--- NOTE | 2023-05-11 14:30 | WPDPN ---
Progress Note: A&P Assessment and Plan (1) Decubitus ulcer of sacral region, unstageable: Code(s): L89.150 - Pressure ulcer of sacral region, unstageable Status: Acute Assessment and Plan: 2nd application of the allograft to the wound yesterday. Wound VAC will be left in place until at which time we will change the wound VAC and see how well the graft has adhered to the granulation tissue. This wound VAC changes plan to be at the bedside and after a new wound VAC is placed patient will likely be okay to be transferred to [facility] in [place]. Subjective Date/time seen: 05/11/23 14:30 Interval history: Patient doing well 1 day after having for debridement of sacral decubitus and buttock wound with a 2nd application of Marigen xenograft. He has no complaints today. Exam Skin: Other: Wound VAC is in place on the patient's buttock and sacral decubitus wound. There is no air leak. Objective Data Vital Signs Vital Signs: Vital Signs - 24 hr 05/10/23 17:20 05/10/23 17:35 05/10/23 17:40 Temperature 36.2 C L Pulse Rate 86 81 Respiratory Rate 14 14 Blood Pressure 121/70 121/73 Pulse Oximetry 100 100 Oxygen Delivery Simple Face Mask Simple Face Mask Room Air Oxygen Flow Rate 6 6 05/10/23 17:50 05/10/23 18:04 05/10/23 18:25 Temperature 36.3 C L Pulse Rate 90 89 92 Respiratory Rate 16 16 17 Blood Pressure 106/73 119/79 134/70 Pulse Oximetry 98 96 97 Oxygen Delivery Room Air Room Air Oxygen Flow Rate 05/10/23 18:40 05/10/23 19:40 05/10/23 23:26 Temperature 36.3 C L 36.2 C L 36.7 C Pulse Rate 87 93 87 Respiratory Rate 17 18 18 Blood Pressure 100/61 97/50 L 120/56 L Pulse Oximetry 98 99 100 Oxygen Delivery Oxygen Flow Rate 05/11/23 03:52 05/11/23 08:06 05/11/23 08:00 Temperature 36.4 C 36.4 C L Pulse Rate 73 75 Respiratory Rate 17 18 15 Blood Pressure 102/45 L 100/56 L Pulse Oximetry 96 96 96 Oxygen Delivery Room Air Oxygen Flow Rate 05/11/23 11:31 Temperature 36.4 C Pulse Rate 110 H Respiratory Rate 14 Blood Pressure 117/65 Pulse Oximetry 100 Oxygen Delivery Oxygen Flow Rate Intake/Output Intake/Output: Intake & Output 05/08/23 05/09/23 05/10/23 05/11/23 23:59 23:59 23:59 23:59 Intake Total 2450 1550 790 950 Output Total 2400 2300 7110 810 Balance 02 -555 -2317 140 Meds/Results Medications: Active Medications Generic Name Dose Route Start Last Admin Trade Name Freq PRN Reason Stop Dose Admin Hydrocodone Bitart/Acetaminophen 1 tab 04/20/23 12:13 05/09/23 20:38 Hydrocodone/Acetaminophen (*Crx) 5-325 Mg Tablet PO 05/20/23 23:59 1 tab Q4H PRN Administration Pain Rated 4-6 Albuterol 2.5 mg 04/17/23 11:23 Albuterol Sulfate Neb 2.5 Mg/3 Ml Inh INHALATION Q6HRT PRN Shortness Of Breath Albuterol/Ipratropium 3 ml 04/29/23 06:57 Ipratropium 0.5 Mg/Albuterol Sulfate 2.5 Mg Ampul.Neb 3 Ml INHALATION Q6HRT PRN Shortness Of Breath Or Wheezing Alprazolam 0.5 mg 04/15/23 09:00 05/11/23 12:16 Alprazolam (*Crx) 0.5 Mg Tablet PO 0.5 mg QID ANNE Administration Alteplase, Recombinant 2 mg 04/26/23 21:50 04/27/23 00:09 Alteplase 2 Mg Vial (Cathflo) IV PUSH 2 mg ONCE PRN Administration Line Occlusion Ascorbic Acid 500 mg 04/15/23 09:00 05/11/23 10:34 Ascorbic Acid 500 Mg Tablet PO 500 mg DAILY ANNE Administration Ciprofloxacin 500 mg 04/23/23 12:30 05/11/23 10:33 Ciprofloxacin 500 Mg Tab PO 500 mg Q12HR ANNE Administration Enoxaparin Sodium 40 mg 04/23/23 09:00 05/11/23 10:35 Enoxaparin 40 Mg/0.4 Ml Syringe SUB-Q 40 mg DAILY ANNE Administration Ferrous Sulfate 325 mg 04/15/23 12:00 05/11/23 12:15 Ferrous Sulfate [address] PO 325 mg DAILY@1200 ANNE Administration Finasteride 5 mg 04/15/23 09:00 05/11/23 10:28 Finasteride 5 Mg Tablet PO 5 mg QAM ANNE Administration Fluticasone Prop
[2023-05-11 20:47] VITALS: BP 100/45; PULSE 84; RESP 18; TEMP 37.3; O2SAT 95
[2023-05-11] MEDS: traZODone HCL 50 MG TABLET 150 MG PO (21:30)
[2023-05-12 04:41] VITALS: BP 106/46; PULSE 74; RESP 18; TEMP 37; O2SAT 94
[2023-05-12] MEDS: oxyCODONE HCL (*CRX) 5 MG TAB IR 10 MG PO ×4 (05:17→23:26)
[2023-05-12] MEDS: metroNIDAZOLE 500 MG TABLET PO ×3 (05:17→23:26)
[2023-05-12] MEDS: CENTRAL LINE FLUSH 10 ML IV PUSH ×3 (05:17→23:26)
[2023-05-12 05:33] LABS: Basophils Percent Auto 0.2 % (0.2-1.2); Eosinophils Absolute Auto 0.8 K/mm3 (0-0.3); Eosinophils Percent Auto 8.3 % (0-4.4); Hematocrit 29.5 % (42.0-52.0); Hemoglobin 8.8 g/dL (14.0-18.0); Immature Granulocyte Absolute 0.06 K/mm3 (0.00-0.031); Immature Granulocyte Percent A 0.6 % (0-0.5); Lymphocytes Absolute Auto 2.49 K/mm3 (0.9-3.2); Lymphocytes Percent Auto 25.4 % (18.3-44.2); Mean Corpuscular HGB Conc 29.8 g/dl (32-36); Mean Corpuscular Hemoglobin 27.9 pg (26-34); Mean Corpuscular Volume 93.7 fl (80-100); Mean Platelet Volume 9.8 fl (7.4-10.4); Monocytes Percent Auto 10.3 % (2.6-8.5); Neutrophils Absolute Auto 5.4 K/mm3 (1.3-6.7); Neutrophils Percent Auto 55.2 % (45.5-73.1); Platelet Count Result 251 k/mm3 (150-375); Red Blood Count 3.15 M/mm3 (4.6-6.20); Red Cell Distribution Width 17.2 % (11.5-14.5); White Blood Count 9.8 K/mm3 (4.5-10.0)
[2023-05-12 05:41] LABS: Alanine Aminotransferase 10 U/L (6-50); Albumin Level 2.8 g/dL (3.5-5.1); Alkaline Phosphatase 97 U/L (38-126); Anion Gap 1 mmol/L (8-16); Aspartate Amino Transferase 26 U/L (17-59); Bilirubin,Total 0.4 mg/dL (0.2-1.3); Blood Urea Nitrogen 33 mg/dL (9-20); Calcium 8.4 mg/dL (8.4-10.2); Carbon Dioxide 31 mmol/L (22-30); Chloride 107 mmol/L (98-107); Estimated CRCL calculation 75 ml/min; Estimated Glomerular Filt Rate > 60; Glucose 100 mg/dL (65-110); Potassium 3.7 mmol/L (3.4-5.0); Sodium 139 mmol/L (137-145)
[2023-05-12 07:18] LABS: Hypochromasia 1+ (NORMAL); Platelet Estimate Adequate (Adequate); Schistocytes None Seen (NORMAL)
[2023-05-12] MEDS: PREGABALIN (*CRX) 75 MG CAPSULE 150 MG PO ×3 (08:59→17:28)
[2023-05-12] MEDS: ZINC SULFATE 220 MG CAPSULE PO (08:59)
[2023-05-12] MEDS: THERAPEUTIC MULTIVITAMINS/MINERALS TAB (*BKC) 1 TABLET PO (08:59)
[2023-05-12] MEDS: ALPRAZolam (*CRX) 0.5 MG TABLET PO ×4 (09:00→20:37)
[2023-05-12] MEDS: CIPROFLOXACIN 500 MG TAB PO ×2 (09:00→20:36)
[2023-05-12] MEDS: SIMVASTATIN 20 MG TABLET PO (09:00)
[2023-05-12] MEDS: FINASTERIDE 5 MG TABLET PO (09:00)
[2023-05-12] MEDS: PARoxetine 10 MG TABLET 30 MG PO (09:00)
[2023-05-12] MEDS: ASCORBIC ACID 500 MG TABLET PO (09:00)
[2023-05-12] MEDS: TIMOLOL MALEATE 0.5% OP SOLN 5 ML BOTTLE 1 DROP EACH EYE (09:01)
[2023-05-12] MEDS: ENOXAPARIN 40 MG/0.4 ML SYRINGE SUB-Q (09:02)
--- NOTE | 2023-05-12 10:40 | PCNFU ---
Nutrition Follow-Up Complete: Increased protein needs as related to wounds as evidenced by pressure ulcer reported. Goal: Adequate Intake of at least 75% of meals/supplements patient is meeting current goal. No new goal. Pt current nutrition is Heart Healthy with Venkatesh BID and Ensure Compact BID. Last recorded weight is 113.6 kg, no new weight to report. Bowel Motility:+BM reported 05/12 Labs Reviewed:BUN 33, Hct 29.5,Alb 2.8, Hgb 8.8 Meds Noted:Zosyn, Vancomycin, Lexapro, Vit C, MVI Skin: Bilateral Buttock-Stage III wound vac in place. Additional Notes: Patient remains on a heart healthy diet. Oral Intake has been good. Good output with colostomy. Diet supplements of Ensure are being consumed. Venkatesh added BID for wound healing. Agree with diet orders. RD will monitor weight, labs, skin, oral intake, meds every 5 days.
[2023-05-12] MEDS: FERROUS SULFATE 325 MG TABLET DR PO (12:36)
[2023-05-12 14:33] VITALS: BP 93/47; PULSE 79; RESP 18; TEMP 36.5; O2SAT 100
[2023-05-12 18:38] VITALS: BP 104/62
[2023-05-12 20:08] VITALS: BP 104/55; PULSE 73; RESP 18; TEMP 36.8; O2SAT 96
[2023-05-12] MEDS: HYDROcodone/acetaminophen (*CRX) 5-325 MG TABLET 1 TAB PO (20:36)
[2023-05-12] MEDS: traZODone HCL 50 MG TABLET 150 MG PO (20:37)
[2023-05-13 04:40] VITALS: BP 115/61; PULSE 68; RESP 18; TEMP 37; O2SAT 95
[2023-05-13] MEDS: oxyCODONE HCL (*CRX) 5 MG TAB IR 10 MG PO ×3 (05:29→17:14)
[2023-05-13] MEDS: metroNIDAZOLE 500 MG TABLET PO ×2 (05:29→13:35)
[2023-05-13] MEDS: CENTRAL LINE FLUSH 10 ML IV PUSH ×2 (05:51→13:35)
[2023-05-13 05:54] LABS: Basophils Percent Auto 0.2 % (0.2-1.2); Eosinophils Absolute Auto 0.7 K/mm3 (0-0.3); Eosinophils Percent Auto 7.9 % (0-4.4); Hematocrit 30.3 % (42.0-52.0); Hemoglobin 9.3 g/dL (14.0-18.0); Immature Granulocyte Absolute 0.05 K/mm3 (0.00-0.031); Immature Granulocyte Percent A 0.6 % (0-0.5); Lymphocytes Absolute Auto 2.18 K/mm3 (0.9-3.2); Lymphocytes Percent Auto 24.3 % (18.3-44.2); Mean Corpuscular HGB Conc 30.7 g/dl (32-36); Mean Corpuscular Hemoglobin 28.4 pg (26-34); Mean Corpuscular Volume 92.4 fl (80-100); Mean Platelet Volume 9.8 fl (7.4-10.4); Monocytes Absolute Auto 0.8 K/mm3 (0.1-0.6); Monocytes Percent Auto 8.7 % (2.6-8.5); Neutrophils Absolute Auto 5.2 K/mm3 (1.3-6.7); Neutrophils Percent Auto 58.3 % (45.5-73.1); Platelet Count Result 267 k/mm3 (150-375); Red Blood Count 3.28 M/mm3 (4.6-6.20); Red Cell Distribution Width 17.1 % (11.5-14.5)
[2023-05-13 06:09] LABS: Alanine Aminotransferase 11 U/L (6-50); Albumin Level 2.7 g/dL (3.5-5.1); Alkaline Phosphatase 95 U/L (38-126); Anion Gap 3 mmol/L (8-16); Aspartate Amino Transferase 25 U/L (17-59); Bilirubin,Total 0.4 mg/dL (0.2-1.3); Blood Urea Nitrogen 30 mg/dL (9-20); Calcium 8.5 mg/dL (8.4-10.2); Carbon Dioxide 31 mmol/L (22-30); Chloride 105 mmol/L (98-107); Estimated CRCL calculation 82 ml/min; Estimated Glomerular Filt Rate > 60; Glucose 92 mg/dL (65-110); Potassium 3.7 mmol/L (3.4-5.0); Sodium 139 mmol/L (137-145)
[2023-05-13] MEDS: MORPHINE SULFATE (*CRX) 4 MG/ML INJ IV PUSH (09:38)
[2023-05-13 09:48] VITALS: RESP 18; O2SAT 95
[2023-05-13] MEDS: CIPROFLOXACIN 500 MG TAB PO (10:11)
[2023-05-13] MEDS: PARoxetine 10 MG TABLET 30 MG PO (10:11)
[2023-05-13] MEDS: PREGABALIN (*CRX) 75 MG CAPSULE 150 MG PO ×3 (10:11→16:20)
[2023-05-13] MEDS: THERAPEUTIC MULTIVITAMINS/MINERALS TAB (*BKC) 1 TABLET PO (10:11)
[2023-05-13] MEDS: ALPRAZolam (*CRX) 0.5 MG TABLET PO ×3 (10:11→16:20)
[2023-05-13] MEDS: ZINC SULFATE 220 MG CAPSULE PO (10:11)
[2023-05-13] MEDS: FINASTERIDE 5 MG TABLET PO (10:12)
[2023-05-13] MEDS: SIMVASTATIN 20 MG TABLET PO (10:12)
[2023-05-13] MEDS: ASCORBIC ACID 500 MG TABLET PO (10:12)
[2023-05-13] MEDS: TIMOLOL MALEATE 0.5% OP SOLN 5 ML BOTTLE 1 DROP EACH EYE (10:13)
[2023-05-13] MEDS: FLUTICASONE PROPIONATE 0.05% NA SPR 16 GM BTL (*BKC) 1 SPRAY NASAL (10:13)
[2023-05-13] MEDS: ENOXAPARIN 40 MG/0.4 ML SYRINGE SUB-Q (10:15)
--- NOTE | 2023-05-13 11:36 | PM.PNGS ---
Progress Note: A&P Assessment and Plan (1) Decubitus ulcer of sacral region, unstageable: Code(s): L89.150 - Pressure ulcer of sacral region, unstageable Status: Acute Assessment and Plan: Wound vac removed at the bedside today after second application of the allograft to the wound on 05/10. The wound continues to heal well following graft placement and he is stable for discharge from a surgical standpoint today. He will be transferred to [facility] on discharge, and they will resume wound care and can apply a wound vac there. They will continue to follow the wound after discharge. Plan I have discussed the patient's case and plan of care with Dr. Brown. Subjective Subjective Date/Time Seen: 05/13/23 09:06 Patient reports: no new complaints and afebrile Interval history: Patient seen today with Dr. Brown and the wound care nurses for wound vac removal and wound check. No specific complaints. care coordination reports there is a bed available at the LT[facility] today if stable for discharge. Exam Narrative: Wound vac with a good seal prior to removal. Wound vac was removed and there is about 75% coverage of the base of the wound with good granulation tissue. There is still some right gluteal muscle that is exposed without granulation tissue. (see wound care note for measurements). The wound was covered with Mepilex transfer and a dry dressing so that he can be transferred to the LTAC today. Objective Data Vital Signs Vital Signs: Vital Signs - 24 hr 05/12/23 14:33 05/12/23 18:38 05/12/23 20:08 Temperature 97.7 F 98.3 F Pulse Rate 79 73 Respiratory Rate 18 18 Blood Pressure 93/47 L 104/62 104/55 L Pulse Oximetry 100 96 Oxygen Delivery 05/12/23 20:00 05/13/23 04:40 05/13/23 09:48 Temperature 98.6 F Pulse Rate 68 Respiratory Rate 18 18 Blood Pressure 115/61 Pulse Oximetry 95 95 Oxygen Delivery Room Air Room Air Intake/Output Intake/Output: Intake & Output 05/10/23 05/11/23 05/12/23 05/13/23 23:59 23:59 23:59 23:59 Intake Total 790 3200 1650 250 Output Total 7110 1785 2404 805 Balance -2236 1415 -755 -555 Meds/Results Medications: Active Medications Generic Name Dose Route Start Last Admin Trade Name Freq PRN Reason Stop Dose Admin Hydrocodone Bitart/Acetaminophen 1 tab 04/20/23 12:13 05/12/23 20:36 Hydrocodone/Acetaminophen (*Crx) 5-325 Mg Tablet PO 05/20/23 23:59 1 tab Q4H PRN Administration Pain Rated 4-6 Albuterol 2.5 mg 04/17/23 11:23 Albuterol Sulfate Neb 2.5 Mg/3 Ml Inh INHALATION Q6HRT PRN Shortness Of Breath Albuterol/Ipratropium 3 ml 04/29/23 06:57 Ipratropium 0.5 Mg/Albuterol Sulfate 2.5 Mg Ampul.Neb 3 Ml INHALATION Q6HRT PRN Shortness Of Breath Or Wheezing Alprazolam 0.5 mg 04/15/23 09:00 05/13/23 10:11 Alprazolam (*Crx) 0.5 Mg Tablet PO 0.5 mg QID ANNE Administration Alteplase, Recombinant 2 mg 04/26/23 21:50 04/27/23 00:09 Alteplase 2 Mg Vial (Cathflo) IV PUSH 2 mg ONCE PRN Administration Line Occlusion Ascorbic Acid 500 mg 04/15/23 09:00 05/13/23 10:12 Ascorbic Acid 500 Mg Tablet PO 500 mg DAILY ANNE Administration Ciprofloxacin 500 mg 04/23/23 12:30 05/13/23 10:11 Ciprofloxacin 500 Mg Tab PO 500 mg Q12HR ANNE Administration Enoxaparin Sodium 40 mg 04/23/23 09:00 05/13/23 10:15 Enoxaparin 40 Mg/0.4 Ml Syringe SUB-Q 40 mg DAILY ANNE Administration Ferrous Sulfate 325 mg 04/15/23 12:00 05/12/23 12:36 Ferrous Sulfate [address] PO 325 mg DAILY@1200 ANNE Administration Finasteride 5 mg 04/15/23 09:00 05/13/23 10:12 Finasteride 5 Mg Tablet PO 5 mg QAM ANNE Administration Fluticasone Propionate 1 spray 04/27/23 21:00 05/13/23 10:13 Fluticasone Propionate 0.05% Na Spr 16 Gm Btl (*Bkc) NASAL 1 spray Q12HR ANNE Administration Methocarbamol 1,500 mg 04/15/23 00:15 Methocarbamol 750 Mg Tablet PO TID
[2023-05-13] MEDS: FERROUS SULFATE 325 MG TABLET DR PO (12:24)
--- NOTE | 2023-05-13 12:56 | WPDPN ---
Progress Note: A&P Assessment and Plan (1) Decubitus ulcer of sacral region, unstageable: Code(s): L89.150 - Pressure ulcer of sacral region, unstageable Status: Acute Assessment and Plan: Appears patient had response in about 80% incorporation of the xenograft was placed 3 days ago onto the wound bed. The patient can be transferred to [place] to [facility]. Wound VAC was not reapplied today as he was being transferred and a moist to dry packing was placed. A new wound VAC is expected to be placed at the [facility] on arrival. Wound care will be transferred to the physicians at the [facility]. After the patient has been discharged I will be happy to see him in my office or [place] wound care clinic for further wound care or takedown of his diverting colostomy. Subjective Date/time seen: 05/13/23 12:56 Interval history: Patient remains very stable clinically. No complaints today. Wound VAC was changed at the bedside today. He continues to eat well and has been functioning in his colostomy Exam Skin: Other: Wound VAC was removed and appears that approximately 80% of the Marigen xenograft appears to have taken a is integrating into the granulation tissue. Appears that 100% of the graft that was placed on the left buttock took on the left medial buttock portion of the wound and only a portion of the graft stayed on the right medial buttock portion of the wound. excellent granulation tissue was noted approximately 60 to 70% of the wound bed. The only portion that is lacking any significant granulation tissue was right over the sacrum and to the upper right medial buttock area were the medial gluteus muscle was debrided. Objective Data Vital Signs Vital Signs: Vital Signs - 24 hr 05/12/23 14:33 05/12/23 18:38 05/12/23 20:08 Temperature 36.5 C 36.8 C Pulse Rate 79 73 Respiratory Rate 18 18 Blood Pressure 93/47 L 104/62 104/55 L Pulse Oximetry 100 96 Oxygen Delivery 05/12/23 20:00 05/13/23 04:40 05/13/23 09:48 Temperature 37.0 C Pulse Rate 68 Respiratory Rate 18 18 Blood Pressure 115/61 Pulse Oximetry 95 95 Oxygen Delivery Room Air Room Air Intake/Output Intake/Output: Intake & Output 02/12/24 02/13/24 02/14/24 02/15/24 23:59 23:59 23:59 23:59 Intake Total 790 3200 1650 490 Output Total 7128 5263 1413 179 Banner [phone] Meds/Results Medications: Active Medications Generic Name Dose Route Start Last Admin Trade Name Freq PRN Reason Stop Dose Admin Hydrocodone Bitart/Acetaminophen 1 tab 04/20/23 12:13 05/12/23 20:36 Hydrocodone/Acetaminophen (*Crx) 5-325 Mg Tablet PO 05/20/23 23:59 1 tab Q4H PRN Administration Pain Rated 4-6 Albuterol 2.5 mg 04/17/23 11:23 Albuterol Sulfate Neb 2.5 Mg/3 Ml Inh INHALATION Q6HRT PRN Shortness Of Breath Albuterol/Ipratropium 3 ml 04/29/23 06:57 Ipratropium 0.5 Mg/Albuterol Sulfate 2.5 Mg Ampul.Neb 3 Ml INHALATION Q6HRT PRN Shortness Of Breath Or Wheezing Alprazolam 0.5 mg 04/15/23 09:00 05/13/23 12:24 Alprazolam (*Crx) 0.5 Mg Tablet PO 0.5 mg QID ANNE Administration Alteplase, Recombinant 2 mg 04/26/23 21:50 04/27/23 00:09 Alteplase 2 Mg Vial (Cathflo) IV PUSH 2 mg ONCE PRN Administration Line Occlusion Ascorbic Acid 500 mg 04/15/23 09:00 05/13/23 10:12 Ascorbic Acid 500 Mg Tablet PO 500 mg DAILY ANNE Administration Ciprofloxacin 500 mg 04/23/23 12:30 05/13/23 10:11 Ciprofloxacin 500 Mg Tab PO 500 mg Q12HR ANNE Administration Enoxaparin Sodium 40 mg 04/23/23 09:00 05/13/23 10:15 Enoxaparin 40 Mg/0.4 Ml Syringe SUB-Q 40 mg DAILY ANNE Administration Ferrous Sulfate 325 mg 04/15/23 12:00 05/13/23 12:24 Ferrous Sulfate [address] PO 325 mg DAILY@1200 ANNE Administration Finasteride 5 mg 04/15/23 09:00 05/13/23 10:12 Finasteride 5 Mg Tablet PO 5 mg QAM ANNE Administration Fluticasone
--- NOTE | 2023-05-13 13:04 | PM.IMPN ---
Progress Note: A&P Assessment and Plan (1) Wound infection: Code(s): T14.8XXA - Other injury of unspecified body region, initial encounter; L08.9 - Local infection of the skin and subcutaneous tissue, unspecified Status: Acute Assessment and Plan: Patient brought to the emergency room because of lethargy and concerns for infected sacral wound. Pelvic CT showed subcu fat stranding and soft tissue gas in the buttocks consistent with infection. No abscess no evidence of osteomyelitis. General surgery consulted. Blood cultures growing Staph epidermidis 1 bottle. Repeat blood cultures negative. Possibly a contaminant although difficult to tell. White count was elevated on admission. Wound culture growing Pseudomonas and Bacteroides. Patient underwent diverting colostomy on 04/19 to assist with healing. Patient underwent debridement 04/15, 04/22, 04/26, 04/29 and again yesterday with sharp scissor debridement of muscle and subcutaneous tissue from sacral decubitus wound with application of a biologic xenograft and change of wound VAC WBC up and down but running 11-13 range Continue Flagyl and ciprofloxacin for now Continue PT/OT in bed but no plans at this time for him to be up moving until okay with surgery 05/07/23: WoundVac changed, per general surgery 05/10/21: Awaiting grafting today. Per General surgery team: Wound vac removed at the bedside today after second application of the allograft to the wound on 05/10. The wound continues to heal well following graft placement and he is stable for discharge from a surgical standpoint today. He will be transferred to [facility] on discharge, and they will resume wound care and can apply a wound vac there. They will continue to follow the wound after discharge. ? Appears patient had response in about 80% incorporation of the xenograft was placed 3 days ago onto the wound bed.? The patient can be transferred to [place] to [facility].? Wound VAC was not reapplied today as he was being transferred and a moist to dry packing was placed.? A new wound VAC is expected to be placed at the [facility] on arrival.? Wound care will be transferred to the physicians at the [facility].? After the patient has been discharged I will be happy to see him in my office or [place] wound care clinic for further wound care or takedown of his diverting colostomy. (2) Sepsis: Code(s): A41.9 - Sepsis, unspecified organism Status: Acute Assessment and Plan: Sepsis present on admission with leukocytosis, lethargy and tachycardia. Related to infected sacral decubitus ulcer Improving 05/08/23: Ciprofloxacin, Metronidazole Pseudomonas spp, Bacterroides spp (3) Chronic kidney disease: Code(s): N18.9 - Chronic kidney disease, unspecified Status: Acute Assessment and Plan: Renal function running 1-1.4 range. Creatinine climbed to 1.7 early in the hospital course but has returned to his baseline. 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 Last admission patient states he left the rehab facility AMA after pulling out his Durant catheter. CT of the pelvis on admission showed diffuse bladder wall thickening and mild bilateral hydronephrosis. Durant catheter was in place at the time. Cr remains within baseline Continue to monitor renal function, urine output and electrolytes. 05/08/23: Avoid nephrotoxins (4) Depression: Code(s): F32.A - Depression, unspecified Status: Acute Assessment and Plan: Patient with depression and history of suicidal attempt 03/20 with Tylenol. History of neurocognitive disorder Chart states he is on Lexapro as well which would be unusual to be on 2 SSRIs. Lexapro stopped. Mood stable. Continue Paxil and trazodone. Monitor (5) Urinary retention with incomplete bladder emptying: Code(s): R33.9 - Retention of urine, unspecified Status: Acute Assessment and Plan: As above BP
--- NOTE | 2023-05-13 13:11 | PM.DS ---
DS: Admitting Diagnosis Discharge Date 05/13/23 Admitting Diagnosis 1. Decubitus ulcer of sacral region, unstageable. 2. Leucocytosis,?improved.?Likely 2/2 wounds; monitor while on Levofloxacin, Metronidazole 3. Sepsis.?likely 2/2 sacral wounds? Pseudomonas spp, Bacteroides spp DS: Discharge Diagnosis Discharge Diagnosis (1) Wound infection: Code(s): T14.8XXA - Other injury of unspecified body region, initial encounter; L08.9 - Local infection of the skin and subcutaneous tissue, unspecified Status: Acute Assessment and Plan: Patient brought to the emergency room because of lethargy and concerns for infected sacral wound. Pelvic CT showed subcu fat stranding and soft tissue gas in the buttocks consistent with infection. No abscess no evidence of osteomyelitis. General surgery consulted. Blood cultures growing Staph epidermidis 1 bottle. Repeat blood cultures negative. Possibly a contaminant although difficult to tell. White count was elevated on admission. Wound culture growing Pseudomonas and Bacteroides. Patient underwent diverting colostomy on 04/19 to assist with healing. Patient underwent debridement 04/15, 04/22, 04/26, 04/29 and again yesterday with sharp scissor debridement of muscle and subcutaneous tissue from sacral decubitus wound with application of a biologic xenograft and change of wound VAC WBC up and down but running 11-13 range Continue Flagyl and ciprofloxacin for now Continue PT/OT in bed but no plans at this time for him to be up moving until okay with surgery 05/07/23: WoundVac changed, per general surgery 05/10/21: Awaiting grafting today. Per General surgery team: Wound vac removed at the bedside today after second application of the allograft to the wound on 05/10. The wound continues to heal well following graft placement and he is stable for discharge from a surgical standpoint today. He will be transferred to [facility] on discharge, and they will resume wound care and can apply a wound vac there. They will continue to follow the wound after discharge. ? Appears patient had response in about 80% incorporation of the xenograft was placed 3 days ago onto the wound bed.? The patient can be transferred to [place] to [facility].? Wound VAC was not reapplied today as he was being transferred and a moist to dry packing was placed.? A new wound VAC is expected to be placed at the [facility] on arrival.? Wound care will be transferred to the physicians at the [facility].? After the patient has been discharged I will be happy to see him in my office or [place] wound care clinic for further wound care or takedown of his diverting colostomy. (2) Sepsis: Code(s): A41.9 - Sepsis, unspecified organism Status: Acute Assessment and Plan: Sepsis present on admission with leukocytosis, lethargy and tachycardia. Related to infected sacral decubitus ulcer Improving 05/08/23: Ciprofloxacin, Metronidazole Pseudomonas spp, Bacterroides spp (3) Chronic kidney disease: Code(s): N18.9 - Chronic kidney disease, unspecified Status: Acute Assessment and Plan: Renal function running 1-1.4 range. Creatinine climbed to 1.7 early in the hospital course but has returned to his baseline. 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 Last admission patient states he left the rehab facility AMA after pulling out his Durant catheter. CT of the pelvis on admission showed diffuse bladder wall thickening and mild bilateral hydronephrosis. Durant catheter was in place at the time. Cr remains within baseline Continue to monitor renal function, urine output and electrolytes. 05/08/23: Avoid nephrotoxins (4) Depression: Code(s): F32.A - Depression, unspecified Status: Acute Assessment and Plan: Patient with depression and history of suicidal attempt 03/20 with Tylenol. History of neurocognitive disorder Chart states he is on Lexapro as well which
--- NOTE | 2023-05-13 13:51 | PC.NURSE ---
On 05/13/23, the student, [Lauryn Weiner], provided care and [email or web address] on this patient. I have reviewed the student's documentation and agree with the findings.
[2023-05-13 14:00] VITALS: BP 107/59; PULSE 82; RESP 16; TEMP 36.6; O2SAT 100
[2023-05-13 17:14] VITALS: BP 105/58; PULSE 80; RESP 16; O2SAT 100
--- NOTE | 2023-05-19 17:35 | WPDHPUPDATE1 ---
History and Physical Update Update Date/Time: 04/19/23 History and Physical has been reviewed, including an updated exam of the patient. There are NO changes in the patient's condition. Risks, benefits, and alternatives have been discussed and questions answered. Patient agrees to proceed with procedure.
== END 2023-05-13 18:25 | DRG 853 ==
LOC: ANHED 18:57 → ANH2MED 20:52 → ANHIMU 04-16 10:27 → ANH2MED 04-18 14:46 → ANHIMU 04-26 17:46 → ANH2MED 04-28 00:37
PROVIDERS: Family Medicine; Hospitalist; Internal Medicine; Internal Medicine Pulmonary Disease; Surgery; Admitting Provider Internal Medicine; Emergency Provider Nurse Practitioner Family; PCP Family Medicine; Visit Provider Internal Medicine
PROC: 0JB70ZZ Excision of Back Subcutaneous Tissue and Fascia, Open Approach (ICD-10-PCS; principal; 2023-04-15 15:00)
PROC: 0DTF4ZZ Resection of Right Large Intestine, Percutaneous Endoscopic Approach (ICD-10-PCS; CPT 44204; principal; 2023-04-19 14:30)
PROC: 0KBP0ZZ Excision of Left Hip Muscle, Open Approach (ICD-10-PCS; principal; 2023-04-26 13:00)
PROC: 0KBN0ZZ Excision of Right Hip Muscle, Open Approach (ICD-10-PCS; principal; 2023-05-03 14:15)
DX: A41.9 Sepsis, unspecified organism (principal); J95.821 Acute postprocedural respiratory failure; J96.02 Acute respiratory failure with hypercapnia; L89.154 Pressure ulcer of sacral region, stage 4; T83.511A Infection and inflammatory reaction due to indwelling urethral catheter, initial encounter; N39.0 Urinary tract infection, site not specified; N17.9 Acute kidney failure, unspecified; D62 Acute posthemorrhagic anemia; F11.20 Opioid dependence, uncomplicated; N13.30 Unspecified hydronephrosis; F33.9 Major depressive disorder, recurrent, unspecified; B97.4 Respiratory syncytial virus as the cause of diseases classified elsewhere; I12.9 Hypertensive chronic kidney disease with stage 1 through stage 4 chronic kidney disease, or unspecified chronic kidney disease; N18.30 Chronic kidney disease, stage 3 unspecified; I87.2 Venous insufficiency (chronic) (peripheral); R62.7 Adult failure to thrive; G89.4 Chronic pain syndrome; G47.33 Obstructive sleep apnea (adult) (pediatric); M62.81 Muscle weakness (generalized); T17.908A Unspecified foreign body in respiratory tract, part unspecified causing other injury, initial encounter; G62.9 Polyneuropathy, unspecified; F41.9 Anxiety disorder, unspecified; B96.5 Pseudomonas (aeruginosa) (mallei) (pseudomallei) as the cause of diseases classified elsewhere; M47.814 Spondylosis without myelopathy or radiculopathy, thoracic region; E66.01 Morbid (severe) obesity due to excess calories; N40.1 Benign prostatic hyperplasia with lower urinary tract symptoms; N31.2 Flaccid neuropathic bladder, not elsewhere classified; R33.8 Other retention of urine; M1A.9XX0 Chronic gout, unspecified, without tophus (tophi); W44.F3XA Food entering into or through a natural orifice, initial encounter; Z68.37 Body mass index [BMI] 37.0-37.9, adult; Z98.1 Arthrodesis status; Z99.3 Dependence on wheelchair; Z66 Do not resuscitate; Z20.822 Contact with and (suspected) exposure to COVID-19; Z87.891 Personal history of nicotine dependence
CPT/HCPCS: 36415; 36430; 36569; 36600; 71045; 71275; 72193; 80048; 80053; 80069; 80202; 81001; 82565; 82607; 82746; 82805; 82948; 83540; 83550; 83605; 83735; 84100; 85014; 85018; 85025; 85027; 85610; 85730; 86140; 86850; 86900; 86901; 86920; 87040; 87070; 87075; 87077; 87086; 87186; 87205; 87637; 92610; 93005; 94002; 94003; 94640; 96360; 96361; 97110; 97161; 99285; A9270; C1751; J0330; J1100; J1170; J1650; J1885; J1940; J2250; J2270; J2371; J2405; J2543; J2704; J2997; J3010; J3370; J3475; J3480; J7030; J7050; J7120; J7121; P9016; Q9967

== ENCOUNTER 2023-09-27 00:21 | Inpatient (IN) | payer MEDICARE, BC, SELFPAY ==
[2023-09-27] VITALS (9 sets, daily range): BP systolic 96–177; BP diastolic 53–97; PULSE 73–87; RESP 14–18; TEMP 35.8–36.9; O2SAT 96–100; BMI 39.5
--- NOTE | ~2023-09-27 | CT_ITS ---
CT of the Abdomen and Pelvis: Indication: Pain Technique: 2.5 mm axial scans were obtained through the abdomen and pelvis following intravenous adm inistration of 100 cc of Omnipaque 350. Dose reduction technique was used on this scan by utilizing a utomated exposure control and iterative reconstruction technique. The dose-length product (DLP) was 1 857.78 mGy-cm. COMPARISON: 04/14/2023 Findings: Scans through the lung bases demonstrates scarring or atelectasis at the right lung base. The liver, spleen, pancreas, gallbladder, adrenals and kidneys are within normal limits. There are at herosclerotic calcifications of the aorta. No lymphadenopathy. No bowel obstruction or bowel wall thickening. There is evidence of partial left colectomy with diver ting ostomy present. Images through the pelvis were performed. There is diffuse wall thickening of the urinary bladder jose pite underdistention with Durant catheter present. No pelvic mass seen. No ascites. Large sacral decub itus ulcer present extending medially down to the sacrum. Impression: Large sacral decubitus ulcer, which appears slightly worsened as compared to prior exam. No definite evidence for osteomyelitis in the sacrum/coccyx. Probable cystitis. Correlate with urinalysis. Reviewed, dictated and finalized at location . Impression: Large sacral decubitus ulcer, which appears slightly worsened as compared to pr ior exam. No definite evidence for osteomyelitis in the sacrum/coccyx. Probable cystitis. Correlate with urinalysis.
--- NOTE | 2023-09-27 00:48 | PC.NURSE ---
Pt rolled to L side to remove pressure from coccyx wound.
[2023-09-27 01:09] LABS: Appearance Urine Turbid (Clear); Bacteria Urine 4+ /hpf; Bilirubin Urine Negative (Negative); Blood Urine 1+ (Negative); Calcium Oxalate Crystals Urine Present /hpf; Color Urine Yellow (Yellow); Glucose Urine UA Negative (Negative); Ketones Urine Negative (Negative); Leukocyte Esterase Ur 3+ LEU/UL (Negative); Need Manual Microscopic Reviewed; Nitrate Urine Positive (Negative); Non Pathogenic Casts >20; Protein Urine 3+ mg/dL (Negative); Specific Grav Ur 1.014 (1.001-1.035); Squamous Epithelial Cell Urine Few /hpf (Few); Triple Phosphate Crystal Urine Present /hpf; Urobilinogen Urine 0.2 mg/dL (<2.0); WBC Urine 51-100 /hpf (0-3); pH Urine >=9.0 (5.0-9.0)
[2023-09-27 01:10] LABS: Add Urine Microscopic? YES
--- NOTE | 2023-09-27 01:17 | P.HP_ITS ---
H&P: HPI History of Present Illness Date/Time: 09/27/23 01:17 Chief Complaint: fall Narrative: This is a 63-year-old male with past medical history significant for chronic kidney disease, chronic pain syndrome, obesity, hypertension, strict of sleep apnea on CPAP peripheral neuropathy, functional paraplegia, decubitus ulcer, status post diverting colostomy. patient was brought from local [facility] where he accidentally fell out of bed landed on his bottom which jolted his spine and his hips . in emergency room patient was found to have foul-smelling decubitus ulcer. Review of Systems Review of Systems: Fell out of bed, decubitus ulcer Constitutional: Constitutional: Denies chills, Denies fever(s) and Denies night sweats Eyes: Eyes: Denies change in vision ENT: Denies dysphagia and Denies odynophagia Cardiovascular: Cardiovascular: Denies chest pain Respiratory: Respiratory: Denies chest congestion, Denies cough and Denies dyspnea Gastrointestinal: Gastrointestinal: Denies abdominal pain, Denies nausea and Denies vomiting Genitourinary: Genitourinary: Denies dysuria Musculoskeletal: Musculoskeletal: Reports back pain and Reports other ( sacral decubitus ulcer) Integumentary/Breasts: Skin/Breast: Reports skin ulcer ( sacrum) Neurologic: Reports other ( functional paraplegic) Psychiatric: Psychiatric: Reports no additional psychiatric complaints and Reports as per HPI Endocrine: Endocrine: Denies cold intolerance, Denies heat intolerance, Denies polyphagia, Denies polydipsia and Denies polyuria Hematologic/Lymphatic: Hematologic/Lymphatic: Reports no additional hematologic/lymphatic complaints and Reports as per HPI Allergic/Immunologic: Allergic/Immunologic: Reports no additional allergic/immunologic complaints and Reports as per HPI [facility] Past Medical History Medical History Alcohol abuse Chronic kidney disease Chronic pain syndrome Depression with anxiety Gout History of GI bleed History of meningitis Hydronephrosis Hyperlipidemia Hypertension Legally blind Left eye YOSEPH on CPAP Peripheral neuropathy Urinary retention Surgical History Surgical History H/O cataract extraction H/O hand surgery H/O inguinal hernia repair H/O Spinal surgery L3 through L5 laminectomy with fusion History of tonsillectomy Family History Family History Mother Patient's mother is in good health Father Patient's father is Congestive heart failure Acute myocardial infarction Hypertension Grandparent Cerebrovascular accident Cancer Unknown No problems noted. Sibling Hypertension Sibling Hypertension Social History Social History Social History: The patient lives home alone. He is a former smoker. The patient used to be heavy smoker smoking up to 2-3 packs of cigarettes for several years. The patient was known to drink 8-10 beers a day, states he drinks less than that now and not every day. He is retired and disabled in 1979. 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 Code status: DNR/DNI Smoking packs per day: 3 Smoking cigarettes per day: 60.0 Years smoked: 15 Smoking pack-years: 45.00 Smoking status: Former smoker Tobacco type: cigarettes Smokeless tobacco user: chewing tobacco Second hand tobacco smoke exposure: No Smoking end date: 03/29/04 Additional smoking assessment comments: CURRENT: SMOKELESS TOBACCO (01/2023) Alcohol intake: former Substance use: never Substance use type: does not use Other substance usage details: oxycodone Last use: t-1 Do You Feel Safe in your Home?: Yes Lack of Transportation: No Lack of Food: Never True Current Housing: I Have Housing Concerned About Future Housing: No Difficulty Paying Gas/Electric Bills: No Difficulty Paying for Meds: No Currently Unemployed: No Education: High School Diploma/GED Difficulty w/ Childcare or Family Care: No Occupation/Education: retired Additional occupation/education comments: Retired [employer] Gender identity (if verbalized by the patient): Male Spiritual care concerns: No Meds Home Medications and Allergies Home Medications Medication Instructions Recorded Confirmed Type paroxetine HCl 30 mg tablet 30 mg PO DAILY 09/15/22 04/14/23 History simvastatin 20 mg tablet 20 mg PO DAILY 09/15/22 04/14/23 History trazodone 150 mg tablet 150 mg PO HS 09/15/22 04/14/23 History escitalopram oxalate 10 mg tablet 15 mg PO HS #30 tabs 12/29/22 04/14/23 Rx polyethylene glycol 3350 17 gram 17 g PO DAILY #30 ea 12/29/22 04/14/23 Rx oral powder packet (Miralax) pregabalin 75 mg capsule (Lyrica) 150 mg PO TID #30 caps 12/29/22 04/14/23 Rx tamsulosin 0.4 mg capsule 0.4 mg PO QHS #30 caps 12/29/22 04/14/23 Rx timolol maleate 0.5 % eye drops 1 drp EACH EYE QAM #1 mL 12/29/22 04/14/23 Rx amlodipine 5 mg tablet (Norvasc) 5 mg PO DAILY 04/04/23 04/14/23 History finasteride 5 mg tablet (Proscar) 5 mg PO QAM #30 tabs 04/08/23 04/14/23 Rx methocarbamol 750 mg tablet 1,500 mg PO TID PRN Bladder Spasms 04/08/23 04/14/23 Rx #30 tabs alprazolam 0.5 mg tablet 0.5 mg PO QID 04/14/23 04/14/23 History ascorbic acid (vitamin C) 500 mg 500 mg PO DAILY 04/14/23 04/14/23 History tablet collagenase clostridium histo. 250 1 applic topical DAILY 04/14/23 04/14/23 History unit/gram topical ointment (Santyl) ferrous sulfate 325 mg (65 mg 325 mg PO DAILY 04/14/23 04/14/23 History iron) tablet multivitamin with minerals 1 tablet PO DAILY 04/14/23 04/14/23 History (Multiple Vitamin-Minerals tablet) oxycodone 10 mg tablet 10 mg PO Q6H 04/14/23 04/14/23 History zinc sulfate 50 mg zinc (220 mg) 50 mg PO DAILY 04/14/23 04/14/23 History tablet ciprofloxacin HCl 500 mg tablet 500 mg PO Q12HR #14 tabs 05/13/23 Rx metronidazole 500 mg tablet 500 mg PO Q8HR #21 tabs 05/13/23 Rx Allergies Allergy/AdvReac Type Severity Reaction Status Date / Time allopurinol Allergy Unknown Rash Verified 04/29/23 10:59 carbamazepine Allergy Unknown Rash Verified 04/29/23 10:59 cyclobenzaprine Allergy Unknown Rash Verified 04/29/23 10:59 diclofenac Allergy Unknown Rash Verified 04/29/23 10:59 adhesive tape Allergy Rash Verified 04/29/23 10:59 Vital Signs Vital Signs - 24 hr 09/27/23 00:22 09/27/23 00:48 Temperature 98.5 F Pulse Rate 76 76 Respiratory Rate 18 18 Blood Pressure 113/63 124/64 Pulse Oximetry 100 100 Oxygen Delivery Room Air Exam Narrative: patient is laying in a stretcher Const: General: comfortable, no acute distress, well developed, alert, awake and obese Nutritional Appearance: obese Orientation/consciousness: patient oriented x3 HENMT: Head: normal to inspection, normocephalic and atraumatic Ears: hearing grossly normal bilaterally Face/Nose/Sinus: normal facial exam Face and sinus: normal facial exam Eyes: General: appearance normal, both eyes and all related structures Pupils: Equal, round and reactive pupils present EOM: EOMs intact bilaterally Neck: Neck: full ROM, no lymphadenopathy and no JVD Thyroid: thyroid normal Lymphatic: no lymphadenopathy noted Resp: Effort & Inspection: normal respiratory effort and able to speak in complete sentences Auscultation: clear to auscultation bilaterally Cardio: Jugular venous distension: no JVD Rate: regular rate Rhythm: regular rhythm Heart sounds: S1 normal heart sound present and S2 normal heart sound present GI: Inspection: obesity and other ( colostomy in place) GI Palp: Yes Soft to palpation and Yes No hepatosplenomegaly present : General: Yes deferred Skin: Rashes: no rashes Wounds: wounds noted ( sacrum) Neuro: General: patient oriented x3 and CN's II-XI intact bilaterally Cranial nerves: Yes CN's II-XII intact bilaterally and Yes Equal, round and reactive pupils present Cognition (Neuro): normal cognition Speech: normal speech Gait exam (Neuro): Unable to assess gait ( bed ridden) Extrem: General: normal to inspection, full ROM, no joint enlargement and no pedal edema H&P: Results Labs Labs: Urine 09/27/23 Range/Units 00:46 Urine Color Yellow (Yellow) Urine Appearance Turbid H (Clear) Urine pH >=9.0 H (5.0-9.0) Ur Specific [place] 1.014 (1.001-1.035) Urine Protein 3+ H (Negative) mg/dL Urine Glucose (UA) Negative (Negative) mg/dL Assessment and Plan Assessment and plan (1) Sacral decubitus ulcer: Code(s): L89.159 - Pressure ulcer of sacral region, unspecified stage Status: Acute Assessment and Plan: admit to regular medical floor wound care and ostomy consult patient started on broad-spectrum antibiotics (2) Colostomy care: Code(s): Z43.3 - Encounter for attention to colostomy Status: Acute Assessment and Plan: continue colostomy care (3) Acute UTI: Code(s): N39.0 - Urinary tract infection, site not specified Status: Acute Assessment and Plan: on broad-spectrum antibiotics await cultures (4) Chronic kidney disease, stage 3: Code(s): N18.30 - Chronic kidney disease, stage 3 unspecified Status: Chronic Assessment and Plan: continue to monitor BUN and creatinine (5) Chronic venous stasis dermatitis of both lower extremities: Code(s): I87.2 - Venous insufficiency (chronic) (peripheral) Status: Acute Assessment and Plan: compression stocking (6) Chronic pain syndrome: Code(s): G89.4 - Chronic pain syndrome Status: Chronic Assessment and Plan: unchanged (7) Morbid obesity with BMI of 40.0-44.9, adult: Code(s): E66.01 - Morbid (severe) obesity due to excess calories; Z68.41 - Body mass index [BMI] 40.0-44.9, adult Status: Acute Assessment and Plan: 1800 calorie restricted diet (8) YOSEPH on CPAP: Code(s): G47.33 - Obstructive sleep apnea (adult) (pediatric) Status: Acute Assessment and Plan: CPAP at nighttime (9) Generalized muscle weakness: Code(s): M62.81 - Muscle weakness (generalized) Status: Acute Assessment and Plan: likely secondary to deconditioning Hospitalist MIPS Advance Care Plan I have confirmed that the patient's Advanced Care Plan is present, code status is documented, or surrogate decision maker is listed in patient medical record.: Yes Medication Reconciliation I have utilized all available resources to obtain, update and review the patients current medications (includes all prescriptions, OTC, herbals, cannabis, and nutritional supplements).: Yes
[2023-09-27 01:25] LABS: Basophils Percent Auto 0.4 % (0.2-1.2); Eosinophils Absolute Auto 0.4 K/mm3 (0-0.3); Eosinophils Percent Auto 3.9 % (0-4.4); Hemoglobin 10.7 g/dL (14.0-18.0); Immature Granulocyte Absolute 0.04 K/mm3 (0.00-0.031); Immature Granulocyte Percent A 0.4 % (0-0.5); Lymphocytes Absolute Auto 2.54 K/mm3 (0.9-3.2); Lymphocytes Percent Auto 26.7 % (18.3-44.2); Mean Corpuscular HGB Conc 30.6 g/dl (32-36); Mean Corpuscular Hemoglobin 24.9 pg (26-34); Mean Corpuscular Volume 81.4 fl (80-100); Monocytes Absolute Auto 0.5 K/mm3 (0.1-0.6); Monocytes Percent Auto 5.7 % (2.6-8.5); Neutrophils Percent Auto 62.9 % (45.5-73.1); Platelet Count Result 264 k/mm3 (150-375); Red Cell Distribution Width 17.7 % (11.5-14.5); White Blood Count 9.5 K/mm3 (4.5-10.0)
[2023-09-27 01:34] LABS: INR 1.2; Prothrombin Time 15.9 Seconds (11.1-14.7)
[2023-09-27 01:35] LABS: Partial Thromboplastin Time 39.4 Seconds (22.3-36.8)
[2023-09-27 01:41] LABS: Lactic Acid Reflex 1.3 mmol/L (0.7-2.0)
[2023-09-27 01:42] LABS: Alanine Aminotransferase 12 U/L (6-50); Albumin Level 3.8 g/dL (3.5-5.1); Alkaline Phosphatase 153 U/L (38-126); Anion Gap 6 mmol/L (4-12); Aspartate Amino Transferase 23 U/L (17-59); Bilirubin,Total 0.5 mg/dL (0.2-1.3); Blood Urea Nitrogen 21 mg/dL (9-20); Calcium 8.8 mg/dL (8.4-10.2); Carbon Dioxide 31 mmol/L (22-30); Chloride 105 mmol/L (98-107); Estimated CRCL calculation 57 ml/min; Estimated Glomerular Filt Rate 47; Glucose 141 mg/dL (65-110); Potassium 3.6 mmol/L (3.4-5.0); Sodium 142 mmol/L (137-145)
[2023-09-27 01:59] LABS: Erythrocyte Sedimentation Rate 79 mm/hr (0-20); Procalcitonin 0.1 ng/mL
--- NOTE | 2023-09-27 02:21 | ED.GENADULT ---
HPI - General Adult General Chief complaint: Fall Stated complaint: BACK & HIP PAIN S/P FALL Time Seen by Provider: 09/27/23 00:41 History of Present Illness HPI narrative: Patient is a 63-year-old gentleman who presents emergency department with chief complaint of slid out of bed. Patient reports that he has pain in his back and hips the patient reports that he has a bedsore and reports that has not been changed over the weekend has foul-smelling drainage from it. The patient denies fever also reports that his Durant catheter has been draining very cloudy urine. The patient reports that he is concerned that he may have an infection in the wound Related Data Home Medications Medication Instructions Recorded Confirmed paroxetine HCl 30 mg tablet 30 mg PO DAILY 09/15/22 04/14/23 simvastatin 20 mg tablet 20 mg PO DAILY 09/15/22 04/14/23 trazodone 150 mg tablet 150 mg PO HS 09/15/22 04/14/23 amlodipine 5 mg tablet (Norvasc) 5 mg PO DAILY 04/04/23 04/14/23 alprazolam 0.5 mg tablet 0.5 mg PO QID 04/14/23 04/14/23 ascorbic acid (vitamin C) 500 mg 500 mg PO DAILY 04/14/23 04/14/23 tablet collagenase clostridium histo. 250 1 applic topical DAILY 04/14/23 04/14/23 unit/gram topical ointment (Santyl) ferrous sulfate 325 mg (65 mg 325 mg PO DAILY 04/14/23 04/14/23 iron) tablet multivitamin with minerals 1 tablet PO DAILY 04/14/23 04/14/23 (Multiple Vitamin-Minerals tablet) oxycodone 10 mg tablet 10 mg PO Q6H 04/14/23 04/14/23 zinc sulfate 50 mg zinc (220 mg) 50 mg PO DAILY 04/14/23 04/14/23 tablet Allergies Allergy/AdvReac Type Severity Reaction Status Date / Time allopurinol Allergy Unknown Rash Verified 04/29/23 10:59 carbamazepine Allergy Unknown Rash Verified 04/29/23 10:59 cyclobenzaprine Allergy Unknown Rash Verified 04/29/23 10:59 diclofenac Allergy Unknown Rash Verified 04/29/23 10:59 adhesive tape Allergy Rash Verified 04/29/23 10:59 Review of Systems Review of Systems: A 10 system review of systems was completed on the patient and is negative except for what is stated in the HPI. Nursing and ancillary documentation was reviewed. [facility] Past Medical History Medical History Alcohol abuse Chronic kidney disease Chronic pain syndrome Depression with anxiety Gout History of GI bleed History of meningitis Hydronephrosis Hyperlipidemia Hypertension Legally blind Left eye YOSEPH on CPAP Peripheral neuropathy Urinary retention Surgical History Surgical History H/O cataract extraction H/O hand surgery H/O inguinal hernia repair H/O Spinal surgery L3 through L5 laminectomy with fusion History of tonsillectomy Family History Family History Mother Patient's mother is in good health Father Patient's father is Congestive heart failure Acute myocardial infarction Hypertension Grandparent Cerebrovascular accident Cancer Unknown No problems noted. Sibling Hypertension Sibling Hypertension Social History Social History Social History: The patient lives home alone. He is a former smoker. The patient used to be heavy smoker smoking up to 2-3 packs of cigarettes for several years. The patient was known to drink 8-10 beers a day, states he drinks less than that now and not every day. He is retired and disabled in 1979. His mother Zita leonard is his veterans contact representative. Code status: DNR/DNI Smoking packs per day: 3 Smoking cigarettes per day: 60.0 Years smoked: 15 Smoking pack-years: 45.00 Smoking status: Former smoker Tobacco type: cigarettes Smokeless tobacco user: chewing tobacco Second hand tobacco smoke exposure: No Smoking end date: 03/29/04 Additional smoking assessment comments: CURRENT: SMOKELESS TOBACCO (01/2023) Alcohol intake: former Substance use: never Substance use type: does not use Other substance usage details: oxycodone Last use: t-1 Do You Feel Safe in your Home?: Yes Lack of Transportation: No Lack of Food: Never True Current Housing: I Have Housing Concerned About Future Housing: No Difficulty Paying Gas/Electric Bills: No Difficulty Paying for Meds: No Currently Unemployed: No Education: High School Diploma/GED Difficulty w/ Childcare or Family Care: No Occupation/Education: retired Additional occupation/education comments: Retired [employer] Gender identity (if verbalized by the patient): Male Spiritual care concerns: No Exam Narrative: GENERAL: Well-appearing, well-nourished, and in no acute distress. HEAD: Normocephalic, atraumatic. EYES: PERRLA and EOMI. ENT: Nares clear, no rhinorrhea or epistaxis. Mucous membranes moist. NECK: Supple. CHEST: Clear to auscultation. No respiratory distress. HEART: Regular rate and rhythm. No murmur heard. Normal peripheral pulses. ABDOMEN: Soft, nontender ostomy present in place, nondistended, normal active bowel sounds. : Durant catheter in place, large sacral decubitus ulcer with malodorous drainage there is no necrotic tissue. The tissue appears to be red the sacrum is visible EXTREMITIES: Normal range of motion. No edema. SKIN: Warm, dry, no rash. NEURO: No focal deficits. Alert and oriented x3. PSYCH: Normal mood and affect. Course Vital Signs Vital signs: Vital Signs Temperature 36.9 C 09/27/23 00:22 Pulse Rate 76 09/27/23 00:22 Respiratory Rate 18 09/27/23 00:22 Blood Pressure 113/63 09/27/23 00:22 Pulse Oximetry 100 09/27/23 00:22 Oxygen Delivery Room Air 09/27/23 00:22 Temperature 36.9 C 09/27/23 00:22 Pulse Rate 87 09/27/23 05:34 Respiratory Rate 16 09/27/23 05:34 Blood Pressure 151/87 H 09/27/23 05:34 Pulse Oximetry 97 09/27/23 05:34 Oxygen Delivery Room Air 09/27/23 00:22 Medical Decision Making MDM Narrative Medical decision making narrative: Differential diagnosis includes infection, infected decubitus ulcer, UTI, pelvic fracture, lumbar spine fracture Laboratory studies were obtained urinalysis showed 51-100 white blood cells in the urine creatinine was 1.5 sed rate was 79 white count was 9.[address] scan showed increasing size of the decubitus ulcer there is no evidence of significant osteomyelitis on CT scan no evidence of fracture. Patient was started on meropenem case was discussed with the hospitalist and the patient received further care in the inpatient setting Vital Signs Vital Signs: Vital Signs Temperature 36.9 C 09/27/23 00:22 Pulse Rate 76 09/27/23 00:22 Respiratory Rate 18 09/27/23 00:22 Blood Pressure 113/63 09/27/23 00:22 Pulse Oximetry 100 09/27/23 00:22 Oxygen Delivery Room Air 09/27/23 00:22 Temperature 36.9 C 09/27/23 00:22 Pulse Rate 87 09/27/23 05:34 Respiratory Rate 16 09/27/23 05:34 Blood Pressure 151/87 H 09/27/23 05:34 Pulse Oximetry 97 09/27/23 05:34 Oxygen Delivery Room Air 09/27/23 00:22 Lab Data 09/27/23 01:15 09/27/23 01:15 Labs: Lab Results 09/27/23 09/27/23 Range/Units 00:46 01:15 WBC 9.5 (4.5-10.0) K/mm3 RBC 4.30 L (4.6-6.20) M/mm3 Hgb 10.7 L (14.0-18.0) g/dL Hct 35.0 L (42.0-52.0) % MCV 81.4 (80-100) fl MCH 24.9 L (26-34) pg MCHC 30.6 L (32-36) g/dl RDW 17.7 H (11.5-14.5) % Plt Count 264 (150-375) k/mm3 MPV 9.0 (7.4-10.4) fl Immature Gran % (Auto) 0.4 (0-0.5) % Neut % (Auto) 62.9 (45.5-73.1) % Lymph % (Auto) 26.7 (18.3-44.2) % Villalba % (Auto) 5.7 (2.6-8.5) % Eos % (Auto) 3.9 (0-4.4) % Baso % (Auto) 0.4 (0.2-1.2) % Lymph # (Auto) 2.54 (0.9-3.2) K/mm3 Villalba # (Auto) 0.5 (0.1-0.6) K/mm3 Eos # (Auto) 0.4 H (0-0.3) K/mm3 Baso # (Auto) 0.0 (0.0-0.1) K/mm3 Abs Immat Gran (auto) 0.04 H (0.00-0.031) K/mm3 Absolute Neuts (auto) 6.0 (1.3-6.7) K/mm3 Absolute Nucleated RBC 0.000 (0.0-0.012) K/mm3 Nucleated RBC % 0.0 (0.0-0.2) % ESR 79 H (0-20) mm/hr PT 15.9 H (11.1-14.7) Seconds INR 1.2 APTT 39.4 H (22.3-36.8) Seconds Sodium 142 (137-145) mmol/L Potassium 3.6 (3.4-5.0) mmol/L Chloride 105 (98-107) mmol/L Carbon Dioxide 31 H (22-30) mmol/L Anion Gap 6 (4-12) mmol/L BUN 21 H (9-20) mg/dL Creatinine 1.50 H (0.7-1.3) mg/dL Estim Creat Clear Calc 57 ml/min Estimated GFR 47 L (59 - ) Glucose 141 H (65-110) mg/dL Lactic Acid 1.3 (0.7-2.0) mmol/L Calcium 8.8 (8.4-10.2) mg/dL Total Bilirubin 0.5 (0.2-1.3) mg/dL AST 23 (17-59) U/L ALT 12 (6-50) U/L Alkaline Phosphatase 153 H (38-126) U/L C-Reactive Protein 4.0 H (<1.0) mg/dL Total Protein 7.0 (6.3-8.2) g/dL Albumin 3.8 (3.5-5.1) g/dL Procalcitonin 0.1 ng/mL Urine Color Yellow (Yellow) Urine Appearance Turbid H (Clear) Urine pH >=9.0 H (5.0-9.0) Ur Specific Rarden 1.014 (1.001-1.035) Urine Protein 3+ H (Negative) mg/dL Urine Glucose (UA) Negative (Negative) mg/dL Urine Ketones Negative (Negative) mg/dL Ur Blood (Man) 1+ H (Negative) Urine Nitrate Positive H (Negative) Urine Bilirubin Negative (Negative) Urine Urobilinogen 0.2 (<2.0) mg/dL Add Ur Microanalysis Reviewed Leukocyte Esterase Rfl 3+ H (Negative) ADRIANNE/UL Urine RBC 6-10 H (0-2) /hpf Urine WBC 51-100 H (0-3) /hpf Ur Squamous Epith Cells Few (Few) /hpf Calcium Oxalate Crystal Present (None) /hpf Triple Phos Crystals Present H (None) /hpf Urine Bacteria 4+ /hpf Urine Casts >20 Urine Characteristics Cloudy Discharge Plan Discharge Clinical Impression: Fall from ground level, Acute UTI, Decubitus ulcer Patient Disposition: Still a Patient Condition: Stable Prescriptions: No Action alprazolam 0.5 mg Tablet 0.5 mg PO QID ascorbic acid (vitamin C) 500 mg Tablet 500 mg PO DAILY ferrous sulfate 325 mg (65 mg iron) Tablet 325 mg PO DAILY Santyl 250 unit/gram Ointment 1 applic TOPICAL DAILY Multiple Vitamin-Minerals Tablet 1 tablet PO DAILY zinc sulfate 50 mg zinc (220 mg) Tablet 50 mg PO DAILY oxycodone 10 mg Tablet 10 mg PO Q6H metronidazole 500 mg Tablet 500 mg PO Q8HR Qty: 21 0RF ciprofloxacin HCl 500 mg Tablet 500 mg PO Q12HR Qty: 14 0RF paroxetine HCl 30 mg tablet 30 mg PO DAILY simvastatin 20 mg tablet 20 mg PO DAILY trazodone 150 mg tablet 150 mg PO HS amlodipine [Norvasc] 5 mg tablet 5 mg PO DAILY finasteride [Proscar] 5 mg Tablet 5 mg PO QAM Qty: 30 0RF methocarbamol 750 mg Tablet 1,500 mg PO TID PRN (Reason: Bladder Spasms) Qty: 30 0RF polyethylene glycol 3350 [Miralax] 17 gram Powder In Packet 17 g PO DAILY Qty: 30 0RF tamsulosin 0.4 mg Capsule 0.4 mg PO QHS Qty: 30 0RF timolol maleate 0.5 % Drops 1 drp EACH EYE QAM Qty: 1 0RF escitalopram oxalate 10 mg Tablet 15 mg PO HS Qty: 30 0RF pregabalin [Lyrica] 75 mg Capsule 150 mg PO TID Qty: 30 0RF Follow-up/Referrals: PHYSICIAN,BRUSHER [Primary Care Provider] - Time of Disposition: 05:52
--- NOTE | 2023-09-27 05:36 | PC.NURSE ---
Verbal order from EDP Dr. Rebollar to replace pts gutierrez catheter due to poor condition of catheter pt had in place upon arrival to ED.
[2023-09-27] MEDS: MEROPENEM 1 GM/NS 100 ML 1 GM/100 ML BAG IVPB (06:20)
--- NOTE | 2023-09-27 06:57 | PC.NURSE ---
Delay in getting pt to floor due to pts Ostomy bag needing replaced before being transferred.
--- NOTE | 2023-09-27 07:04 | PC.NURSE ---
Pts Ostomy bag replaced.
--- NOTE | 2023-09-27 07:55 | ADMGEN ---
This patient, Nura North, was admitted to [facility] Room 322-. Patient/family oriented to hospital policies and general routines including ID bracelet, bed and alarms, visiting hours, pain management, procedures, bathroom and other care routines, personal items, smoking policy, room service/diet, and visiting hours. Information on how to activate the Rapid Response Team has been discussed. Patient/Family are encouraged to report perceived risks to care and to ask questions if they do not understand what they are told or what they should do.
[2023-09-27] MEDS: PIPERACILLIN/TAZ 4.5G/NS 100ML 4.5 GM/100 ML BAG IVPB ×2 (16:01→20:12)
--- NOTE | 2023-09-27 16:36 | PM.IMPN ---
Progress Note: A&P Assessment and Plan (1) Sacral decubitus ulcer: Code(s): L89.159 - Pressure ulcer of sacral region, unspecified stage Status: Acute Assessment and Plan: admit to regular medical floor wound care and ostomy consult patient started on broad-spectrum antibiotics (2) Colostomy care: Code(s): Z43.3 - Encounter for attention to colostomy Status: Acute Assessment and Plan: continue colostomy care (3) Acute UTI: Code(s): N39.0 - Urinary tract infection, site not specified Status: Acute Assessment and Plan: on broad-spectrum antibiotics await cultures (4) Chronic kidney disease, stage 3: Code(s): N18.30 - Chronic kidney disease, stage 3 unspecified Status: Chronic Assessment and Plan: continue to monitor BUN and creatinine (5) Chronic venous stasis dermatitis of both lower extremities: Code(s): I87.2 - Venous insufficiency (chronic) (peripheral) Status: Acute Assessment and Plan: compression stocking (6) Chronic pain syndrome: Code(s): G89.4 - Chronic pain syndrome Status: Chronic Assessment and Plan: unchanged (7) Morbid obesity with BMI of 40.0-44.9, adult: Code(s): E66.01 - Morbid (severe) obesity due to excess calories; Z68.41 - Body mass index [BMI] 40.0-44.9, adult Status: Acute Assessment and Plan: 1800 calorie restricted diet (8) YOSEPH on CPAP: Code(s): G47.33 - Obstructive sleep apnea (adult) (pediatric) Status: Acute Assessment and Plan: CPAP at nighttime (9) Generalized muscle weakness: Code(s): M62.81 - Muscle weakness (generalized) Status: Acute Assessment and Plan: likely secondary to deconditioning Plan Acute and principal conditions 1. Physical deconditioning 2. Pressure wounds, Sacral area. unstageable. Zosyn; Wound care. IVFs Chronic and stable conditions 1. Recurrent anxiety. on Alprazolam 2. Obesity, BMI 39. 3. Dyslipidemia. on Statin 4. OAB. on Oxybutynin 5. Chronic pain. on Oxycodone 6. GERD. on PPI 7. BPH, PRESLEY. on Tamuslosin 8. Insomnia. On Melatonin, Trazodone Miscellaneous care Code status. Full VTE Prophylaxis. SCDs; Lovenox Nutrition. Heart healthy Time Spent With Patient Time with patient: 25 - 35 minutes Subjective Date/time seen: 09/27/23 16:36 Interval history: Nura North is a 63-year-old male with past medical history significant for chronic kidney disease, chronic pain syndrome, obesity, hypertension, strict of sleep apnea on CPAP peripheral neuropathy, functional paraplegia, decubitus ulcer, status post diverting colostomy. [facility] where he accidentally fell out of bed landed on his bottom which jolted his spine and his hips . in emergency room patient was found to have foul-smelling decubitus ulcer. He was placed on Meropenem but per ID Pharmacist, decision was made to switch to Zosyn; Review of Systems Review of Systems: Fell out of bed, decubitus ulcer Constitutional: Constitutional: Denies chills, Denies fever(s) and Denies night sweats Eyes: Eyes: Denies change in vision ENT: Denies dysphagia and Denies odynophagia Cardiovascular: Cardiovascular: Denies chest pain and Denies dyspnea Respiratory: Respiratory: Denies chest congestion, Denies cough and Denies dyspnea Gastrointestinal: Gastrointestinal: Denies abdominal pain, Denies dysphagia, Denies nausea, Denies odynophagia and Denies vomiting Genitourinary: Genitourinary: Denies dysuria Musculoskeletal: Musculoskeletal: Reports back pain and Reports other ( sacral decubitus ulcer) Integumentary/Breasts: Skin/Breast: Reports skin ulcer ( sacrum) Neurologic: Reports other ( functional paraplegic) Psychiatric: Psychiatric: Reports no additional psychiatric complaints and Reports as per HPI Endocrine: Endocrine: Denies cold intolerance, Denies heat intolerance, Denies polyphagia, Denies polydipsia and Denies polyuria Hematologic/Lymphatic: Hematologic/Lymphatic: Reports no additional hematologic/lymphatic complaints and Reports as per HPI Allergic/Immunologic: Allergic/Immunologic: Reports no additional allergic/immunologic complaints and Reports as per HPI Exam Narrative: patient is laying in a stretcher Const: General: comfortable, no acute distress, well developed, alert, awake and obese Nutritional Appearance: obese Orientation/consciousness: patient oriented x3 HENMT: Head: normal to inspection, normocephalic and atraumatic Ears: hearing grossly normal bilaterally Face/Nose/Sinus: normal facial exam Face and sinus: normal facial exam Eyes: General: appearance normal, both eyes and all related structures Pupils: Equal, round and reactive pupils present EOM: EOMs intact bilaterally Neck: Neck: full ROM, no lymphadenopathy and no JVD Thyroid: thyroid normal Lymphatic: no lymphadenopathy noted Resp: Effort & Inspection: normal respiratory effort and able to speak in complete sentences Auscultation: clear to auscultation bilaterally Cardio: Jugular venous distension: no JVD Rate: regular rate Rhythm: regular rhythm Heart sounds: S1 normal heart sound present and S2 normal heart sound present GI: Inspection: obesity and other ( colostomy in place) : General: Yes deferred Skin: General skin exam: wounds noted ( sacrum) Rashes: no rashes Wounds: wounds noted ( sacrum) Neuro: General: patient oriented x3, CN's II-XI intact bilaterally and Unable to assess gait ( bed ridden) Cranial nerves: Yes CN's II-XII intact bilaterally and Yes Equal, round and reactive pupils present Cognition (Neuro): normal cognition Speech: normal speech Gait exam (Neuro): Unable to assess gait ( bed ridden) Extrem: General: normal to inspection, full ROM, no joint enlargement and no pedal edema Objective Data Vital Signs Vital Signs: Vital Signs - 24 hr 09/27/23 00:22 09/27/23 00:48 09/27/23 03:52 Temperature 98.5 F Pulse Rate 76 76 85 Respiratory Rate 18 18 14 Blood Pressure 113/63 124/64 177/97 H Pulse Oximetry 100 100 97 Oxygen Delivery Room Air 09/27/23 05:34 09/27/23 07:45 09/27/23 08:12 Temperature 97.6 F Pulse Rate 87 87 Respiratory Rate 16 16 Blood Pressure 151/87 H 166/90 H Pulse Oximetry 97 99 96 Oxygen Delivery Room Air 09/27/23 14:00 Temperature 96.5 F L Pulse Rate 73 Respiratory Rate 18 Blood Pressure 138/71 Pulse Oximetry 97 Oxygen Delivery Intake/Output Intake/Output: Intake & Output 09/24/23 09/25/23 09/26/23 09/27/23 23:59 23:59 23:59 23:59 Intake Total 1490 Output Total 1350 Balance 140 Meds/Results Medications: Active Medications Generic Name Dose Route Start Last Admin Trade Name Freq PRN Reason Stop Dose Admin Acetaminophen 650 mg 09/27/23 05:49 Acetaminophen 325 Mg Tablet PO Q4H PRN Mild Pain (1-3) or Fever Alprazolam 0.5 mg 09/27/23 17:00 Alprazolam (*Crx) 0.5 Mg Tablet PO BID [facility] Ascorbic Acid 500 mg 09/28/23 09:00 Ascorbic Acid 500 Mg Tablet PO DAILY [facility] Atorvastatin Calcium 10 mg 09/27/23 21:00 Atorvastatin 10 Mg Tablet PO HS [facility] Docusate Sodium 100 mg 09/27/23 17:00 Docusate Sodium 100 Mg Capsule PO BID [facility] Piperacillin Sod/Tazobactam Sod 4.5 gm in 100 mls @ 200 mls/hr 09/27/23 15:00 09/27/23 16:01 Zosyn 4.5 Gm/Ns 100 Ml IVPB 200 mls/hr Q6H [facility] Administration Melatonin 9 mg 09/27/23 21:00 Melatonin 3 Mg Tablet PO HS [facility] Multivitamins/Calcium 1 tablet 09/28/23 09:00 Therapeutic Multivitamins/Minerals Tab (*Bkc) PO DAILY [facility] Oxybutynin Chloride 5 mg 09/27/23 16:31 Oxybutynin Chloride 5 Mg Tablet PO Q8H PRN bph Oxycodone HCl 10 mg 09/27/23 16:31 Oxycodone Hcl (*Crx) 5 Mg Tab Ir PO Q6H PRN Pain (Scale Score 4-6) Pantoprazole Sodium 40 mg 09/28/23 09:00 Pantoprazole 40 Mg Tablet PO DAILY [facility] Paroxetine HCl 30 mg 09/27/23 21:00 Paroxetine 10 Mg Tablet PO HS [facility] Pregabalin 150 mg 09/27/23 17:00 Pregabalin (*Crx) 75 Mg Capsule PO TID [facility] Tamsulosin HCl 0.4 mg 09/27/23 21:00 Tamsulosin Hcl 0.4 Mg Capsule PO QHS [facility] Timolol Maleate 1 drop 09/28/23 09:00 Timolol Maleate 0.5% Op Soln 5 Ml Bottle EACH EYE [facility] Radiology Results: ITS Impressions Abdomen/Pelvis CT 09/27/23 05:32 Impression: Large sacral decubitus ulcer, which appears slightly worsened as compared to prior exam. No definite evidence for osteomyelitis in the sacrum/coccyx. Probable cystitis. Correlate with urinalysis. Labs Labs: Laboratory Results - last 24 hr 09/27/23 09/27/23 00:46 01:15 WBC 9.5 RBC 4.30 L Hgb 10.7 L Hct 35.0 L MCV 81.4 MCH 24.9 L MCHC 30.6 L RDW 17.7 H Plt Count 264 MPV 9.0 Immature Gran % (Auto) 0.4 Neut % (Auto) 62.9 Lymph % (Auto) 26.7 Rush % (Auto) 5.7 Eos % (Auto) 3.9 Baso % (Auto) 0.4 Lymph # (Auto) 2.54 Rush # (Auto) 0.5 Eos # (Auto) 0.4 H Baso # (Auto) 0.0 Abs Immat Gran (auto) 0.04 H Absolute Neuts (auto) 6.0 Absolute Nucleated RBC 0.000 Nucleated RBC % 0.0 ESR 79 H PT 15.9 H INR 1.2 APTT 39.4 H Sodium 142 Potassium 3.6 Chloride 105 Carbon Dioxide 31 H Anion Gap 6 BUN 21 H Creatinine 1.50 H Estim Creat Clear Calc 57 Estimated GFR 47 L Glucose 141 H Lactic Acid 1.3 Calcium 8.8 Total Bilirubin 0.5 AST 23 ALT 12 Alkaline Phosphatase 153 H C-Reactive Protein 4.0 H Total Protein 7.0 Albumin 3.8 Procalcitonin 0.1 Urine Color Yellow Urine Appearance Turbid H Urine pH >=9.0 H Ur Specific Huffman 1.014 Urine Protein 3+ H Urine Glucose (UA) Negative Urine Ketones Negative Ur Blood (Man) 1+ H Urine Nitrate Positive H Urine Bilirubin Negative Urine Urobilinogen 0.2 Add Ur Microanalysis Reviewed Leukocyte Esterase Rfl 3+ H Urine RBC 6-10 H Urine WBC 51-100 H Ur Squamous Epith Cells Few Calcium Oxalate Crystal Present Triple Phos Crystals Present H Urine Bacteria 4+ Urine Casts >20 Hospitalist MIPS Advance Care Plan I have confirmed that the patient's Advanced Care Plan is present, code status is documented, or surrogate decision maker is listed in patient medical record.: Yes Medication Reconciliation I have utilized all available resources to obtain, update and review the patients current medications (includes all prescriptions, OTC, herbals, cannabis, and nutritional supplements).: Yes
[2023-09-27] MEDS: PREGABALIN (*CRX) 75 MG CAPSULE 150 MG PO (17:30)
[2023-09-27] MEDS: DOCUSATE SODIUM 100 MG CAPSULE PO (17:30)
[2023-09-27] MEDS: ALPRAZolam (*CRX) 0.5 MG TABLET PO (17:30)
[2023-09-27] MEDS: ACETAMINOPHEN 325 MG TABLET 650 MG PO (17:31)
[2023-09-27] MEDS: oxyCODONE HCL (*CRX) 5 MG TAB IR 10 MG PO (20:12)
[2023-09-27] MEDS: PARoxetine 10 MG TABLET 30 MG PO (20:13)
[2023-09-27] MEDS: MELATONIN 3 MG TABLET 9 MG PO (20:13)
[2023-09-27] MEDS: ATORVASTATIN 10 MG TABLET PO (20:13)
[2023-09-27] MEDS: TAMSULOSIN HCL 0.4 MG CAPSULE PO (20:13)
[2023-09-28] MEDS: LORATADINE 10 MG TABLET PO (02:00)
[2023-09-28] MEDS: PIPERACILLIN/TAZ 4.5G/NS 100ML 4.5 GM/100 ML BAG IVPB ×4 (02:00→23:48)
[2023-09-28] MEDS: oxyCODONE HCL (*CRX) 5 MG TAB IR 10 MG PO ×2 (02:00→08:08)
[2023-09-28 06:00] VITALS: BP 116/67; PULSE 61; RESP 18; TEMP 36.7; O2SAT 96
[2023-09-28] MEDS: THERAPEUTIC MULTIVITAMINS/MINERALS TAB (*BKC) 1 TABLET PO (08:08)
[2023-09-28] MEDS: PANTOPRAZOLE 40 MG TABLET PO (08:08)
[2023-09-28] MEDS: ASCORBIC ACID 500 MG TABLET PO (08:08)
[2023-09-28] MEDS: ALPRAZolam (*CRX) 0.5 MG TABLET PO ×2 (08:09→20:17)
[2023-09-28] MEDS: PREGABALIN (*CRX) 75 MG CAPSULE 150 MG PO ×3 (08:09→20:17)
[2023-09-28] MEDS: DOCUSATE SODIUM 100 MG CAPSULE PO ×2 (08:09→16:55)
[2023-09-28] MEDS: TIMOLOL MALEATE 0.5% OP SOLN 5 ML BOTTLE 1 DROP EACH EYE (08:10)
[2023-09-28 13:37] VITALS: BMI 39.5
[2023-09-28 14:00] VITALS: BP 99/53; PULSE 68; RESP 16; TEMP 36; O2SAT 99
--- NOTE | 2023-09-28 18:13 | P.PNIM_ITS ---
Progress Note: A&P Assessment and Plan (1) Sacral decubitus ulcer: Code(s): L89.159 - Pressure ulcer of sacral region, unspecified stage Status: Acute Assessment and Plan: admit to regular medical floor wound care and ostomy consult patient started on broad-spectrum antibiotics (2) Colostomy care: Code(s): Z43.3 - Encounter for attention to colostomy Status: Acute Assessment and Plan: continue colostomy care (3) Acute UTI: Code(s): N39.0 - Urinary tract infection, site not specified Status: Acute Assessment and Plan: on broad-spectrum antibiotics await cultures (4) Chronic kidney disease, stage 3: Code(s): N18.30 - Chronic kidney disease, stage 3 unspecified Status: Chronic Assessment and Plan: continue to monitor BUN and creatinine (5) Chronic venous stasis dermatitis of both lower extremities: Code(s): I87.2 - Venous insufficiency (chronic) (peripheral) Status: Acute Assessment and Plan: compression stocking (6) Chronic pain syndrome: Code(s): G89.4 - Chronic pain syndrome Status: Chronic Assessment and Plan: unchanged (7) Morbid obesity with BMI of 40.0-44.9, adult: Code(s): E66.01 - Morbid (severe) obesity due to excess calories; Z68.41 - Body mass index [BMI] 40.0-44.9, adult Status: Acute Assessment and Plan: 1800 calorie restricted diet (8) YOSEPH on CPAP: Code(s): G47.33 - Obstructive sleep apnea (adult) (pediatric) Status: Acute Assessment and Plan: CPAP at nighttime (9) Generalized muscle weakness: Code(s): M62.81 - Muscle weakness (generalized) Status: Acute Assessment and Plan: likely secondary to deconditioning Plan Acute and principal conditions 1. Physical deconditioning 2. Pressure wounds, Sacral area. unstageable. Zosyn; Wound care. IVFs 09/27/26: Will continue Zosyn; wound care; Blood and wound culture. Refusing to return to current ECF, requesting a new one. Chronic and stable conditions 1. Recurrent anxiety. on Alprazolam 2. Obesity, BMI 39. 3. Dyslipidemia. on Statin 4. OAB. on Oxybutynin 5. Chronic pain. on Oxycodone 6. GERD. on PPI 7. BPH, PRESLEY. on Tamuslosin 8. Insomnia. On Melatonin, Trazodone Miscellaneous care Code status. Full VTE Prophylaxis. SCDs; Lovenox Nutrition. Heart healthy Time Spent With Patient Time with patient: 25 - 35 minutes Subjective Date/time seen: 09/28/23 18:13 Interval history: Nura North is a 63-year-old male with past medical history significant for chronic kidney disease, chronic pain syndrome, obesity, hypertension, strict of sleep apnea on CPAP peripheral neuropathy, functional paraplegia, decubitus ulcer, status post diverting colostomy. patient was brought from local [facility] where he accidentally fell out of bed landed on his bottom which jolted his spine and his hips . in emergency room patient was found to have foul- smelling decubitus ulcer. He was placed on Meropenem but per ID Pharmacist, decision was made to switch to Zosyn; 09/28/23: Seen and examined; tired-looking; not eager to return to current [facility] Review of Systems Review of Systems: Fell out of bed, decubitus ulcer Constitutional: Constitutional: Denies chills, Denies fever(s) and Denies night sweats Eyes: Eyes: Denies change in vision ENT: Denies dysphagia and Denies odynophagia Cardiovascular: Cardiovascular: Denies chest pain and Denies dyspnea Respiratory: Respiratory: Denies chest congestion, Denies cough and Denies dyspnea Gastrointestinal: Gastrointestinal: Denies abdominal pain, Denies dysphagia, Denies nausea, Denies odynophagia and Denies vomiting Genitourinary: Genitourinary: Denies dysuria Musculoskeletal: Musculoskeletal: Reports back pain and Reports other ( sacral decubitus ulcer) Integumentary/Breasts: Skin/Breast: Reports skin ulcer ( sacrum) Neurologic: Reports other ( functional paraplegic) Psychiatric: Psychiatric: Reports no additional psychiatric complaints and Reports as per HPI Endocrine: Endocrine: Denies cold intolerance, Denies heat intolerance, Denies polyphagia, Denies polydipsia and Denies polyuria Hematologic/Lymphatic: Hematologic/Lymphatic: Reports no additional hematologic/lymphatic complaints and Reports as per HPI Allergic/Immunologic: Allergic/Immunologic: Reports no additional allergic/immunologic complaints and Reports as per HPI Exam Narrative: patient is laying in a stretcher Const: General: comfortable, no acute distress, well developed, alert, awake and obese Nutritional Appearance: obese Orientation/consciousness: patient oriented x3 HENMT: Head: normal to inspection, normocephalic and atraumatic Ears: hearing grossly normal bilaterally Face/Nose/Sinus: normal facial exam Face and sinus: normal facial exam Eyes: General: appearance normal, both eyes and all related structures Pupils: Equal, round and reactive pupils present EOM: EOMs intact bilaterally Neck: Neck: full ROM, no lymphadenopathy and no JVD Thyroid: thyroid normal Lymphatic: no lymphadenopathy noted Resp: Effort & Inspection: normal respiratory effort and able to speak in complete sentences Auscultation: clear to auscultation bilaterally Cardio: Jugular venous distension: no JVD Rate: regular rate Rhythm: regular rhythm Heart sounds: S1 normal heart sound present and S2 normal heart sound present GI: Inspection: obesity and other ( colostomy in place) : General: Yes deferred Skin: General skin exam: wounds noted ( sacrum) Rashes: no rashes Wounds: wounds noted ( sacrum) Neuro: General: patient oriented x3, CN's II-XI intact bilaterally and Unable to assess gait ( bed ridden) Cranial nerves: Yes CN's II-XII intact bilaterally and Yes Equal, round and reactive pupils present Cognition (Neuro): normal cognition Speech: normal speech Gait exam (Neuro): Unable to assess gait ( bed ridden) Extrem: General: normal to inspection, full ROM, no joint enlargement and no pedal edema Objective Data Vital Signs Vital Signs: Vital Signs - 24 hr 09/27/23 20:00 09/27/23 21:31 09/28/23 06:00 Temperature 98.1 F 98.1 F Pulse Rate 73 61 Respiratory Rate 18 18 Blood Pressure 96/53 L 116/67 Pulse Oximetry 98 96 Oxygen Delivery Room Air 09/28/23 08:00 09/28/23 14:00 Temperature 96.8 F L Pulse Rate 68 Respiratory Rate 16 Blood Pressure 99/53 L Pulse Oximetry 99 Oxygen Delivery Room Air Intake/Output Intake/Output: Intake & Output 09/25/23 09/26/23 09/27/23 09/28/23 23:59 23:59 23:59 23:59 Intake Total 0 1820 Output Total 2049 950 Balance -120 870 Meds/Results Medications: Active Medications Generic Name Dose Route Start Last Admin Trade Name Freq PRN Reason Stop Dose Admin Acetaminophen 650 mg 09/27/23 05:49 09/27/23 17:31 Acetaminophen 325 Mg Tablet PO 650 mg Q4H PRN Administration Mild Pain (1-3) or Fever Alprazolam 0.5 mg 09/28/23 21:00 Alprazolam (*Crx) 0.5 Mg Tablet PO Q12HR ANNE Ascorbic Acid 500 mg 09/28/23 09:00 09/28/23 08:08 Ascorbic Acid 500 Mg Tablet PO 500 mg DAILY ANNE Administration Atorvastatin Calcium 10 mg 09/27/23 21:00 09/27/23 20:13 Atorvastatin 10 Mg Tablet PO 10 mg HS ANNE Administration Docusate Sodium 100 mg 09/27/23 17:00 09/28/23 16:55 Docusate Sodium 100 Mg Capsule PO 100 mg BID ANNE Administration Enoxaparin Sodium 40 mg 09/28/23 09:00 09/28/23 08:14 Enoxaparin 40 Mg/0.4 Ml Syringe SUB-Q Not Given DAILY ANNE Piperacillin Sod/Tazobactam Sod 4.5 gm in 100 mls @ 200 mls/hr 09/27/23 15:00 09/28/23 14:12 Zosyn 4.5 Gm/Ns 100 Ml IVPB 200 mls/hr Q6H ANNE Administration Melatonin 9 mg 09/27/23 21:00 09/27/23 20:13 Melatonin 3 Mg Tablet PO 9 mg HS ANNE Administration Multivitamins/Calcium 1 tablet 09/28/23 09:00 09/28/23 08:08 Therapeutic Multivitamins/Minerals Tab (*Bkc) PO 1 tablet DAILY ANNE Administration Oxybutynin Chloride 5 mg 09/27/23 16:31 Oxybutynin Chloride 5 Mg Tablet PO Q8H PRN bph Oxycodone HCl 10 mg 09/27/23 16:31 09/28/23 08:08 Oxycodone Hcl (*Crx) 5 Mg Tab Ir PO 10 mg Q6H PRN Administration Pain (Scale Score 4-6) Pantoprazole Sodium 40 mg 09/28/23 09:00 09/28/23 08:08 Pantoprazole 40 Mg Tablet PO 40 mg DAILY ANNE Administration Paroxetine HCl 30 mg 09/27/23 21:00 09/27/23 20:13 Paroxetine 10 Mg Tablet PO 30 mg HS ANNE Administration Pregabalin 150 mg 09/28/23 15:00 09/28/23 14:11 Pregabalin (*Crx) 75 Mg Capsule PO 150 mg TID@0900,1500,2100 ANNE Administration Tamsulosin HCl 0.4 mg 09/27/23 21:00 09/27/23 20:13 Tamsulosin Hcl 0.4 Mg Capsule PO 0.4 mg QHS ANNE Administration Timolol Maleate 1 drop 09/28/23 09:00 09/28/23 08:10 Timolol Maleate 0.5% Op Soln 5 Ml Bottle EACH EYE 1 drop QAM ANNE Administration Radiology Results: ITS Impressions Abdomen/Pelvis CT 09/27/23 05:32 Impression: Large sacral decubitus ulcer, which appears slightly worsened as compared to prior exam. No definite evidence for osteomyelitis in the sacrum/coccyx. Probable cystitis. Correlate with urinalysis.
[2023-09-28] MEDS: SODIUM CHLORIDE 0.9% IV 1,000 ML 100 ML IV CONT (20:16)
[2023-09-28] MEDS: VANCOMYCIN 1,250 MG/NS 250 ML 1,250 MG/250 ML BAG 166.67 MG IVPB ×2 (20:16→22:16)
[2023-09-28] MEDS: TAMSULOSIN HCL 0.4 MG CAPSULE PO (20:17)
[2023-09-28] MEDS: MELATONIN 3 MG TABLET 9 MG PO (20:17)
[2023-09-28] MEDS: PARoxetine 10 MG TABLET 30 MG PO (20:17)
[2023-09-28] MEDS: ATORVASTATIN 10 MG TABLET PO (20:17)
[2023-09-28 21:18] VITALS: BP 112/63; PULSE 75; RESP 18; TEMP 36.5; O2SAT 97
[2023-09-29] MEDS: oxyCODONE HCL (*CRX) 5 MG TAB IR 10 MG PO (02:07)
[2023-09-29] MEDS: SODIUM CHLORIDE 0.9% IV 1,000 ML 100 ML IV CONT (05:23)
[2023-09-29] MEDS: PIPERACILLIN/TAZ 4.5G/NS 100ML 4.5 GM/100 ML BAG IVPB ×2 (05:24→11:02)
[2023-09-29 06:09] VITALS: BP 126/71; PULSE 69; RESP 18; TEMP 36.8; O2SAT 96
[2023-09-29 06:24] LABS: Estimated CRCL calculation 60 ml/min; Estimated Glomerular Filt Rate 47
[2023-09-29 07:22] LABS: Basophils Percent Auto 0.3 % (0.2-1.2); Eosinophils Absolute Auto 0.6 K/mm3 (0-0.3); Eosinophils Percent Auto 7.2 % (0-4.4); Hematocrit 31.6 % (42.0-52.0); Hemoglobin 9.8 g/dL (14.0-18.0); Immature Granulocyte Absolute 0.04 K/mm3 (0.00-0.031); Immature Granulocyte Percent A 0.5 % (0-0.5); Lymphocytes Percent Auto 24.3 % (18.3-44.2); Mean Corpuscular Hemoglobin 25.1 pg (26-34); Mean Corpuscular Volume 80.8 fl (80-100); Mean Platelet Volume 9.8 fl (7.4-10.4); Monocytes Absolute Auto 0.5 K/mm3 (0.1-0.6); Monocytes Percent Auto 6.6 % (2.6-8.5); Neutrophils Absolute Auto 4.8 K/mm3 (1.3-6.7); Neutrophils Percent Auto 61.1 % (45.5-73.1); Platelet Count Result 234 k/mm3 (150-375); Red Blood Count 3.91 M/mm3 (4.6-6.20); Red Cell Distribution Width 18.3 % (11.5-14.5); White Blood Count 7.8 K/mm3 (4.5-10.0)
[2023-09-29 07:53] LABS: Alanine Aminotransferase 9 U/L (6-50); Albumin Level 3.3 g/dL (3.5-5.1); Alkaline Phosphatase 129 U/L (38-126); Anion Gap 6 mmol/L (4-12); Aspartate Amino Transferase 15 U/L (17-59); Bilirubin,Total 0.6 mg/dL (0.2-1.3); Blood Urea Nitrogen 17 mg/dL (9-20); CRP 3.5 mg/dL (<1.0); Calcium 8.4 mg/dL (8.4-10.2); Carbon Dioxide 29 mmol/L (22-30); Chloride 108 mmol/L (98-107); Estimated CRCL calculation 60 ml/min; Estimated Glomerular Filt Rate 47; Glucose 94 mg/dL (65-110); Magnesium 1.4 mg/dL (1.6-2.3); Potassium 3.6 mmol/L (3.4-5.0); Sodium 143 mmol/L (137-145)
[2023-09-29] MEDS: ALPRAZolam (*CRX) 0.5 MG TABLET PO (09:04)
[2023-09-29] MEDS: PANTOPRAZOLE 40 MG TABLET PO (09:04)
[2023-09-29] MEDS: PREGABALIN (*CRX) 75 MG CAPSULE 150 MG PO ×2 (09:05→14:36)
[2023-09-29] MEDS: THERAPEUTIC MULTIVITAMINS/MINERALS TAB (*BKC) 1 TABLET PO (09:05)
[2023-09-29] MEDS: ASCORBIC ACID 500 MG TABLET PO (09:05)
[2023-09-29] MEDS: DOCUSATE SODIUM 100 MG CAPSULE PO (09:05)
[2023-09-29] MEDS: ENOXAPARIN 40 MG/0.4 ML SYRINGE SUB-Q (09:06)
[2023-09-29] MEDS: TIMOLOL MALEATE 0.5% OP SOLN 5 ML BOTTLE 1 DROP EACH EYE (09:10)
[2023-09-29] MEDS: oxyBUTYnin CHLORIDE 5 MG TABLET PO (09:11)
--- NOTE | 2023-09-29 12:33 | P.PNIM_ITS ---
Progress Note: A&P Assessment and Plan (1) Sacral decubitus ulcer: Code(s): L89.159 - Pressure ulcer of sacral region, unspecified stage Status: Acute Assessment and Plan: admit to regular medical floor wound care and ostomy consult patient started on broad-spectrum antibiotics (2) Colostomy care: Code(s): Z43.3 - Encounter for attention to colostomy Status: Acute Assessment and Plan: continue colostomy care (3) Acute UTI: Code(s): N39.0 - Urinary tract infection, site not specified Status: Acute Assessment and Plan: on broad-spectrum antibiotics await cultures (4) Chronic kidney disease, stage 3: Code(s): N18.30 - Chronic kidney disease, stage 3 unspecified Status: Chronic Assessment and Plan: continue to monitor BUN and creatinine (5) Chronic venous stasis dermatitis of both lower extremities: Code(s): I87.2 - Venous insufficiency (chronic) (peripheral) Status: Acute Assessment and Plan: compression stocking (6) Chronic pain syndrome: Code(s): G89.4 - Chronic pain syndrome Status: Chronic Assessment and Plan: unchanged (7) Morbid obesity with BMI of 40.0-44.9, adult: Code(s): E66.01 - Morbid (severe) obesity due to excess calories; Z68.41 - Body mass index [BMI] 40.0-44.9, adult Status: Acute Assessment and Plan: 1800 calorie restricted diet (8) YOSEPH on CPAP: Code(s): G47.33 - Obstructive sleep apnea (adult) (pediatric) Status: Acute Assessment and Plan: CPAP at nighttime (9) Generalized muscle weakness: Code(s): M62.81 - Muscle weakness (generalized) Status: Acute Assessment and Plan: likely secondary to deconditioning Plan Acute and principal conditions 1. Physical deconditioning 2. Pressure wounds, Sacral area. unstageable. Zosyn; Wound care. IVFs 09/27/26: Will continue Zosyn; wound care; Blood and wound culture. Refusing to return to current ECF, requesting a new one. Chronic and stable conditions 1. Recurrent anxiety. on Alprazolam 2. Obesity, BMI 39. 3. Dyslipidemia. on Statin 4. OAB. on Oxybutynin 5. Chronic pain. on Oxycodone 6. GERD. on PPI 7. BPH, PRESLEY. on Tamuslosin 8. Insomnia. On Melatonin, Trazodone Miscellaneous care Code status. Full VTE Prophylaxis. SCDs; Lovenox Nutrition. Heart healthy Subjective Date/time seen: 09/29/23 12:33 Interval history: 63yo male with CKD, chronic pain syndrome, obesity, HTN, YOSEPH not on CPAP, peripheral neuropathy, functional paraplegia, and decubitus ulcer status post diverting colostomy here from the alf where he accidentally fell out of bed landing on his bottom which jolted his spine and his hips . In the ED, he was found to have foul-smelling decubitus ulcer. Assuming care. Chart reviewed. Complains of buttock pain. Wating well. No n/v. No CP or SOB. No cough. Not on CPAP here and has not shemar on CPAP for the past 8 months due to being in/out of the hospital. CPAP offered but he refuses. Exam Narrative: AF 98.3 126/71 69 18 96% ra Gen - NARD siting up in chair Chest - few basilar rhonchi R>L, nml RR CV - RRR S1/S2 Abd - Soft, NT/ND, Positive BS. colostomy left of midline with light brown stool in bag - [place] secured draining clear yellow urine Ext - trace pedal edema Psych - Nml mood and affect Skin - chronic venous statsis skin changes with small dried linear eschars bilateral LE Objective Data Vital Signs Vital Signs: Vital Signs - 24 hr 09/28/23 14:00 09/28/23 21:18 09/29/23 06:09 Temperature 96.8 F L 97.7 F 98.3 F Pulse Rate 68 75 69 Respiratory Rate 16 18 18 Blood Pressure 99/53 L 112/63 126/71 Pulse Oximetry 99 97 96 Oxygen Delivery 09/29/23 10:03 Temperature Pulse Rate Respiratory Rate Blood Pressure Pulse Oximetry Oxygen Delivery Room Air Intake/Output Intake/Output: Intake & Output 09/26/23 09/27/23 09/28/23 09/29/23 23:59 23:59 23:59 23:59 Intake Total 1930 2420 1691.7 Output Total 0 950 1450 Balance -120 1470 241.7 Meds/Results Medications: Active Medications Generic Name Dose Route Start Last Admin Trade Name Freq PRN Reason Stop Dose Admin Acetaminophen 650 mg 09/27/23 05:49 09/27/23 17:31 Acetaminophen 325 Mg Tablet PO 650 mg Q4H PRN Administration Mild Pain (1-3) or Fever Alprazolam 0.5 mg 09/28/23 21:00 09/29/23 09:04 Alprazolam (*Crx) 0.5 Mg Tablet PO 0.5 mg Q12HR ANNE Administration Ascorbic Acid 500 mg 09/28/23 09:00 09/29/23 09:05 Ascorbic Acid 500 Mg Tablet PO 500 mg DAILY ANNE Administration Atorvastatin Calcium 10 mg 09/27/23 21:00 09/28/23 20:17 Atorvastatin 10 Mg Tablet PO 10 mg HS ANNE Administration Docusate Sodium 100 mg 09/27/23 17:00 09/29/23 09:05 Docusate Sodium 100 Mg Capsule PO 100 mg BID ANNE Administration Enoxaparin Sodium 40 mg 09/28/23 09:00 09/29/23 09:06 Enoxaparin 40 Mg/0.4 Ml Syringe SUB-Q 40 mg DAILY ANNE Administration Piperacillin Sod/Tazobactam Sod 4.5 gm in 100 mls @ 200 mls/hr 09/27/23 15:00 09/29/23 11:32 Zosyn 4.5 Gm/Ns 100 Ml IVPB Infused Q6H ANNE Infusion Sodium Chloride 1,000 mls @ 100 mls/hr 09/28/23 18:15 09/29/23 05:23 Normal Saline Iv IV CONT 100 mls/hr .Q10H ANNE Administration Vancomycin HCl 1,500 mg in 500 mls @ 250 mls/hr 09/29/23 15:00 Vancomycin 1,500 Mg/Ns 500 Ml IVPB Q18H ANNE Melatonin 9 mg 09/27/23 21:00 09/28/23 20:17 Melatonin 3 Mg Tablet PO 9 mg HS ANNE Administration Multivitamins/Calcium 1 tablet 09/28/23 09:00 09/29/23 09:05 Therapeutic Multivitamins/Minerals Tab (*Bkc) PO 1 tablet DAILY ANNE Administration Oxybutynin Chloride 5 mg 09/27/23 16:31 09/29/23 09:11 Oxybutynin Chloride 5 Mg Tablet PO 5 mg Q8H PRN Administration bph Oxycodone HCl 10 mg 09/27/23 16:31 09/29/23 02:07 Oxycodone Hcl (*Crx) 5 Mg Tab Ir PO 10 mg Q6H PRN Administration Pain (Scale Score 4-6) Pantoprazole Sodium 40 mg 09/28/23 09:00 09/29/23 09:04 Pantoprazole 40 Mg Tablet PO 40 mg DAILY ANNE Administration Paroxetine HCl 30 mg 09/27/23 21:00 09/28/23 20:17 Paroxetine 10 Mg Tablet PO 30 mg HS ANNE Administration Pregabalin 150 mg 09/28/23 15:00 09/29/23 09:05 Pregabalin (*Crx) 75 Mg Capsule PO 150 mg TID@0900,1500,2100 ANNE Administration Tamsulosin HCl 0.4 mg 09/27/23 21:00 09/28/23 20:17 Tamsulosin Hcl 0.4 Mg Capsule PO 0.4 mg QHS ANNE Administration Timolol Maleate 1 drop 09/28/23 09:00 09/29/23 09:10 Timolol Maleate 0.5% Op Soln 5 Ml Bottle EACH EYE 1 drop QAM ANNE Administration Radiology Results: ITS Impressions Abdomen/Pelvis CT 09/27/23 05:32 Impression: Large sacral decubitus ulcer, which appears slightly worsened as compared to prior exam. No definite evidence for osteomyelitis in the sacrum/coccyx. Probable cystitis. Correlate with urinalysis. Labs Labs: Laboratory Results - last 24 hr 09/29/23 09/29/23 09/29/23 06:04 06:04 06:04 WBC 7.8 RBC 3.91 L Hgb 9.8 L Hct 31.6 L MCV 80.8 MCH 25.1 L MCHC 31.0 L RDW 18.3 H Plt Count 234 MPV 9.8 Immature Gran % (Auto) 0.5 Neut % (Auto) 61.1 Lymph % (Auto) 24.3 [place] % (Auto) 6.6 Eos % (Auto) 7.2 H Baso % (Auto) 0.3 Lymph # (Auto) 1.90 [place] # (Auto) 0.5 Eos # (Auto) 0.6 H Baso # (Auto) 0.0 Abs Immat Gran (auto) 0.04 H Absolute Neuts (auto) 4.8 Absolute Nucleated RBC 0.000 Nucleated RBC % 0.0 Sodium 143 Potassium 3.6 Chloride 108 H Carbon Dioxide 29 Anion Gap 6 BUN 17 Creatinine 1.50 H 1.50 H Estim Creat Clear Calc 60 60 Estimated GFR 47 L Glucose Calcium Magnesium Total Bilirubin AST ALT Alkaline Phosphatase C-Reactive Protein Total Protein Albumin 09/29/23 06:04 WBC RBC Hgb Hct MCV MCH MCHC RDW Plt Count MPV Immature Gran % (Auto) Neut % (Auto) Lymph % (Auto) [place] % (Auto) Eos % (Auto) Baso % (Auto) Lymph # (Auto) [place] # (Auto) Eos # (Auto) Baso # (Auto) Abs Immat Gran (auto) Absolute Neuts (auto) Absolute Nucleated RBC Nucleated RBC % Sodium Potassium Chloride Carbon Dioxide Anion Gap BUN Creatinine Estim Creat Clear Calc Estimated GFR 47 L Glucose 94 Calcium 8.4 Magnesium 1.4 L Total Bilirubin 0.6 AST 15 L ALT 9 Alkaline Phosphatase 129 H C-Reactive Protein 3.5 H Total Protein 7.0 Albumin 3.3 L
[2023-09-29] MEDS: MAGNESIUM SULF 2 GM/WATER 50ML 2 GM/50 ML BAG IVPB (13:21)
[2023-09-29 13:59] LABS: SARS-CoV-2 RNA PCR Negative (Negative)
[2023-09-29 14:00] VITALS: BP 117/67; PULSE 62; RESP 18; TEMP 36.4; O2SAT 98
--- NOTE | 2023-09-29 14:43 | P.DS_ITS ---
DS: Admitting Diagnosis Discharge Date 09/29/23 Admitting Diagnosis Fall DS: Discharge Diagnosis Discharge Diagnosis (1) Acute UTI: Code(s): N39.0 - Urinary tract infection, site not specified Status: Acute (2) Sacral decubitus ulcer: Code(s): L89.159 - Pressure ulcer of sacral region, unspecified stage Status: Acute (3) Colostomy care: Code(s): Z43.3 - Encounter for attention to colostomy Status: Acute (4) Chronic kidney disease, stage 3: Code(s): N18.30 - Chronic kidney disease, stage 3 unspecified Status: Chronic (5) Chronic venous stasis dermatitis of both lower extremities: Code(s): I87.2 - Venous insufficiency (chronic) (peripheral) Status: Acute (6) Chronic pain syndrome: Code(s): G89.4 - Chronic pain syndrome Status: Chronic (7) Morbid obesity with BMI of 40.0-44.9, adult: Code(s): E66.01 - Morbid (severe) obesity due to excess calories; Z68.41 - Body mass index [BMI] 40.0-44.9, adult Status: Acute (8) YOSEPH on CPAP: Code(s): G47.33 - Obstructive sleep apnea (adult) (pediatric) Status: Acute (9) Generalized muscle weakness: Code(s): M62.81 - Muscle weakness (generalized) Status: Acute DS: Summary Hospital Course Reason for hospitalization: 63yo male with CKD, chronic pain syndrome, obesity, HTN, YOSEPH not on CPAP, peripheral neuropathy, functional paraplegia, and decubitus ulcer status post diverting col[facility] where he accidentally fell out of bed landing on his bottom which jolted his spine and his hips . In the ED, he was found to have foul-smelling decubitus ulcer. Please see H&P for details Hospital Course: Patient slid out of bed landing on his buttocks. He was brought to the emergency room and there was found to foul-smelling drainage from his known sacral wound. Durant catheter is chronic and noted to have cloudy urine. Urine, blood and wound cultures collected. White count was normal. Hemoglobin was stable in the 9-10 range which is slightly higher than his baseline. Creatinine was elevated on admission at 1.5 and remained stable on repeat. On chart reviewed, he does have mildly elevated creatinine at times. He was treated with IV fluids but without significant change in his creatinine level. He had good urine output. Suspected that the elevated creatinine was probably more baseline. CRP was 4 and, on repeat, this trended downward. He was started on vancomycin and Zosyn. Blood cultures remain negative. Wound care nurse evaluated the patient. Patient has a healing stage IV pressure injury to the sacrum. This actually looks better than prior evaluations. The wound is 100% beefy red tissue without signs or symptoms of infection. There is no foul odor noted. It was felt that the foul older probably was related to the dressing that had since been removed. The wound itself did not appear to be infected. CT of the abdomen and pelvis showed a large sacral decubitus ulcer which appears slightly worse as compared to prior exam but no evidence of osteomyelitis. There was diffuse wall thickening of the urinary bladder. Urine culture grew Proteus that was sensitive to Zosyn and Augmentin. Antibiotics were narrowed. Durant was changed out. Wound cultures pending. He was refusing CPAP here. Patient overall did well was able be discharged on 09/29/2023. Status at Discharge Cognitive/behavioral status at discharge: stable Time Spent with Patient Time attestation: Total time spent providing and/or coordinating discharge services: 35 minutes Time spent: Greater than 30 minutes Exam Narrative: AF 98.3 126/71 69 18 96% ra Gen - NARD siting up in chair Chest - few basilar rhonchi R>L, nml RR CV - RRR S1/S2 Abd - Soft, NT/ND, Positive BS. colostomy left of midline with light brown stool in bag - Durant secured draining clear yellow urine Ext - trace pedal edema Psych - Nml mood and affect Skin - chronic venous statsis skin changes with small dried linear eschars bilateral LE DS: Data Data Completed and Pending Labs on day of discharge: Labs from last 24 hours 09/29/23 09/29/23 09/29/23 13:12 06:04 06:04 WBC RBC Hgb Hct MCV MCH MCHC RDW Plt Count MPV Immature Gran % (Auto) Neut % (Auto) Lymph % (Auto) [place] % (Auto) Eos % (Auto) Baso % (Auto) Lymph # (Auto) [place] # (Auto) Eos # (Auto) Baso # (Auto) Abs Immat Gran (auto) Absolute Neuts (auto) Absolute Nucleated RBC Nucleated RBC % Sodium Potassium Chloride Carbon Dioxide Anion Gap BUN Creatinine Estim Creat Clear Calc 60 Estimated GFR 47 L 47 L Glucose 94 Calcium 8.4 Magnesium 1.4 L Total Bilirubin 0.6 AST 15 L ALT 9 Alkaline Phosphatase 129 H C-Reactive Protein 3.5 H Total Protein 7.0 Albumin 3.3 L SARS-CoV-2 RNA (RT-PCR) Negative 09/29/23 09/29/23 06:04 06:04 WBC 7.8 RBC 3.91 L Hgb 9.8 L Hct 31.6 L MCV 80.8 MCH 25.1 L MCHC 31.0 L RDW 18.3 H Plt Count 234 MPV 9.8 Immature Gran % (Auto) 0.5 Neut % (Auto) 61.1 Lymph % (Auto) 24.3 [place] % (Auto) 6.6 Eos % (Auto) 7.2 H Baso % (Auto) 0.3 Lymph # (Auto) 1.90 [place] # (Auto) 0.5 Eos # (Auto) 0.6 H Baso # (Auto) 0.0 Abs Immat Gran (auto) 0.04 H Absolute Neuts (auto) 4.8 Absolute Nucleated RBC 0.000 Nucleated RBC % 0.0 Sodium 143 Potassium 3.6 Chloride 108 H Carbon Dioxide 29 Anion Gap 6 BUN 17 Creatinine 1.50 H 1.50 H Estim Creat Clear Calc 60 Estimated GFR Glucose Calcium Magnesium Total Bilirubin AST ALT Alkaline Phosphatase C-Reactive Protein Total Protein Albumin SARS-CoV-2 RNA (RT-PCR) Preliminary micro results at discharge 09/28/23 17:14 Wound Culture - Preliminary Back 09/27/23 01:15 Blood Culture - Preliminary Blood 09/27/23 01:19 Blood Culture - Preliminary Blood Discharge Plan Discharge Attending physician on discharge: Aden Hanks Consulting providers: Michelet Gonzalez Discharging Clinician: Aden Hanks Anticipated Discharge Date/Time: 09/29/23 14:54 Patient Disposition: SNF Activity: as tolerated Diet: heart healthy Discharge Instructions: Check blood pressure 1 to 2 times a day. Record for the doctor's review. Take precautions to avoid falls. Resume CPAP if patient agreeable Routine Durant care. Change out Durant every 4 weeks. Contact the doctor if the patient has fever or other worrisome symptoms. Continue current wound care to the dacral wound. Avoid NSAIDs (ibuprofen, naproxen, Aleve). Tylenol is safe to take. The patient is taking both a narcotic and a benzodiazepine. Please have primary provider review medication list to see if this is still appropriate. Follow-up with the provider at the facility. Thank you for using [facility] for your health care needs. Stand Alone Forms: General Discharge Information Follow-up/Referrals: Michelet Gonzalez MD [Physician] - Call for Appointment Discharge Medications: New amoxicillin-pot clavulanate 875-125 mg tablet 1 tablet PO Q12H Qty: 10 0RF Continued ascorbic acid (vitamin C) 500 mg Tablet 500 mg PO DAILY Multiple Vitamin-Minerals Tablet 1 tablet PO DAILY zinc sulfate 50 mg zinc (220 mg) Tablet 50 mg PO DAILY cyclobenzaprine 10 mg tablet 10 mg PO TID atorvastatin 10 mg tablet 10 mg PO HS melatonin 3 mg Tablet 9 mg PO HS pantoprazole 40 mg tablet,delayed release (DR/EC) 40 mg PO DAILY docusate sodium [Colace] 100 mg Capsule 100 mg PO BID oxybutynin chloride 5 mg tablet 5 mg PO Q8H PRN (Reason: bph) ergocalciferol (vitamin D2) 1,000 unit Capsule 2,000 unit PO DAILY guaifenesin 400 mg Tablet 400 mg PO Q6H PRN (Reason: Congestion) acetaminophen [Tylenol] 325 mg Capsule 650 mg PO Q4H PRN (Reason: pain fever) Pro-Stat AWC 17-100 gram-kcal/30 mL Liquid 30 ea PO BID sennosides-docusate sodium 8.6-50 mg Capsule 1 tab-cap PO Q12H PRN (Reason: Constipation) alprazolam 0.5 mg Tablet 0.5 mg PO BID Qty: 10 0RF oxycodone 10 mg Tablet 10 mg PO Q6H PRN (Reason: Pain (Scale Score 4-6)) Qty: 10 0RF paroxetine HCl 30 mg tablet 30 mg PO HS trazodone 150 mg tablet 150 mg PO HS tamsulosin 0.4 mg Capsule 0.4 mg PO QHS Qty: 30 0RF timolol maleate 0.5 % Drops 1 drp EACH EYE QAM Qty: 1 0RF pregabalin [Lyrica] 75 mg Capsule 150 mg PO TID Qty: 30 0RF Changed triamcinolone acetonide 0.1 % cream 1 applic TOPICAL DAILY PRN (Reason: Rash) Qty: 15 0RF Rx Instructions: apply to eczema areas on BLE and head. Date of admission: 09/27/23 13:55 Primary Care Provider: PHYSICIAN,HEALTH CONCIERGE Admitting Provider: Gonzalo Lemus V. Attending physician on admission: Gonzalo Lemus V. Condition: Stable Hospitalist MIPS Heart Failure (Exclusion) Patient has history of Heart Transplant or Left Ventricular Assistive Device?: No IF YES, STOP HERE Heart Failure (Qualifier) Patient has current or prior documentation of LVEF less than or equal to 40%, or mod/servere depressed LVSF?: No IF NO, STOP HERE
--- NOTE | 2023-10-05 07:32 | PC.NURSE ---
Blood cx are negative. Wound cx growing a scant growth of Group B Streptococcus. Pt dc on Amoxicillin. this organism is susceptible to PCN. Dr. Hanks aware of findings. Results faxed to Dr. Gonzalez.
== END 2023-09-29 18:20 | DRG 698 ==
LOC: ANHED 05:52 → ANH3MEDSUR 06:15
PROVIDERS: Internal Medicine; Admitting Provider Internal Medicine; Emergency Provider Emergency Medicine; Visit Provider Internal Medicine
DX: T83.511A Infection and inflammatory reaction due to indwelling urethral catheter, initial encounter (principal); L89.154 Pressure ulcer of sacral region, stage 4; N39.0 Urinary tract infection, site not specified; I12.9 Hypertensive chronic kidney disease with stage 1 through stage 4 chronic kidney disease, or unspecified chronic kidney disease; N18.30 Chronic kidney disease, stage 3 unspecified; I87.2 Venous insufficiency (chronic) (peripheral); E78.5 Hyperlipidemia, unspecified; R33.9 Retention of urine, unspecified; E66.9 Obesity, unspecified; G47.33 Obstructive sleep apnea (adult) (pediatric); G62.9 Polyneuropathy, unspecified; G89.4 Chronic pain syndrome; M10.9 Gout, unspecified; H54.40 Blindness, one eye, unspecified eye; F44.4 Conversion disorder with motor symptom or deficit; F32.A Depression, unspecified; F41.9 Anxiety disorder, unspecified; F10.10 Alcohol abuse, uncomplicated; F17.290 Nicotine dependence, other tobacco product, uncomplicated; Z11.52 Encounter for screening for COVID-19; Z93.3 Colostomy status; Z68.39 Body mass index [BMI] 39.0-39.9, adult
CPT/HCPCS: 36415; 74177; 80053; 81001; 82565; 83605; 83735; 84145; 85025; 85610; 85652; 85730; 86140; 87040; 87070; 87077; 87081; 87086; 87088; 87186; 87205; 87635; 96365; 97161; 97165; 99285; A9270; G0378; J1650; J2185; J2543; J3370; J3475; J7030; Q9967

== ENCOUNTER 2023-10-13 02:16 | Emergency (ER) | payer MEDICARE, BC, SELFPAY ==
[2023-10-13] VITALS (9 sets, daily range): BP systolic 131–159; BP diastolic 75–93; PULSE 84–95; RESP 12–18; TEMP 36.4; O2SAT 99–100
--- NOTE | 2023-10-13 04:55 | ECG_ITS ---
Test Date: 2023-10-13 05:11:42 Measurements Intervals [place] Rate: 86 P: 96 DC: 208 QRS: 85 QRSD: 119 T: 54 QT: 410 QTc: 492 Interpretive Statements SINUS RHYTHM WITH OCCASIONAL SUPRAVENTRICULAR PREMATURE COMPLEXES INCOMPLETE RIGHT BUNDLE BRANCH BLOCK BASELINE ARTIFACT- I, V1-V2 BORDERLINE ECG No previous ECG available for comparison Electronically Signed On 10-13-2023 07:17:53 CDT by Navi Liao D.O.
[2023-10-13 05:20] LABS: Basophils Percent Auto 0.3 % (0.2-1.2); Eosinophils Absolute Auto 0.4 K/mm3 (0-0.3); Eosinophils Percent Auto 4.3 % (0-4.4); Hematocrit 37.2 % (42.0-52.0); Hemoglobin 11.7 g/dL (14.0-18.0); Immature Granulocyte Absolute 0.03 K/mm3 (0.00-0.031); Immature Granulocyte Percent A 0.3 % (0-0.5); Lymphocytes Absolute Auto 2.27 K/mm3 (0.9-3.2); Lymphocytes Percent Auto 24.1 % (18.3-44.2); Mean Corpuscular HGB Conc 31.5 g/dl (32-36); Mean Corpuscular Hemoglobin 25.1 pg (26-34); Mean Corpuscular Volume 79.8 fl (80-100); Mean Platelet Volume 9.1 fl (7.4-10.4); Monocytes Absolute Auto 0.8 K/mm3 (0.1-0.6); Monocytes Percent Auto 8.1 % (2.6-8.5); Neutrophils Absolute Auto 5.9 K/mm3 (1.3-6.7); Neutrophils Percent Auto 62.9 % (45.5-73.1); Platelet Count Result 320 k/mm3 (150-375); Red Blood Count 4.66 M/mm3 (4.6-6.20); Red Cell Distribution Width 18.7 % (11.5-14.5); White Blood Count 9.4 K/mm3 (4.5-10.0)
[2023-10-13 05:29] LABS: Lactic Acid Reflex 0.6 mmol/L (0.7-2.0)
[2023-10-13 05:31] LABS: Alanine Aminotransferase 10 U/L (6-50); Albumin Level 4.2 g/dL (3.5-5.1); Alkaline Phosphatase 127 U/L (38-126); Anion Gap 12 mmol/L (4-12); Aspartate Amino Transferase 18 U/L (17-59); Bilirubin,Total 0.8 mg/dL (0.2-1.3); Blood Urea Nitrogen 15 mg/dL (9-20); CRP 6.5 mg/dL (<1.0); Calcium 9.1 mg/dL (8.4-10.2); Carbon Dioxide 25 mmol/L (22-30); Chloride 103 mmol/L (98-107); Estimated CRCL calculation 65 ml/min; Estimated Glomerular Filt Rate 56; Glucose 95 mg/dL (65-110); Potassium 3.4 mmol/L (3.4-5.0); Sodium 140 mmol/L (137-145)
[2023-10-13 05:44] LABS: INR 1.1; Prothrombin Time 15.1 Seconds (11.1-14.7)
[2023-10-13 05:46] LABS: Partial Thromboplastin Time 39.9 Seconds (22.3-36.8)
[2023-10-13 05:47] LABS: Appearance Urine Turbid (Clear); Bacteria Urine 4+ /hpf; Bilirubin Urine Negative (Negative); Blood Urine 2+ (Negative); Color Urine Yellow (Yellow); Glucose Urine UA Negative (Negative); Ketones Urine Negative (Negative); Leukocyte Esterase Ur 3+ LEU/UL (Negative); Need Manual Microscopic Reviewed; Nitrate Urine Positive (Negative); Non Pathogenic Casts >20; Protein Urine 3+ mg/dL (Negative); RBC Urine 51-100 /hpf (0-2); Specific Grav Ur 1.015 (1.001-1.035); Squamous Epithelial Cell Urine Few /hpf (Few); Urobilinogen Urine 0.2 mg/dL (<2.0); WBC Urine >100 /hpf (0-3); pH Urine 7.5 (5.0-9.0)
[2023-10-13 06:15] LABS: Add Urine Microscopic? YES
--- NOTE | 2023-10-13 08:41 | ED.GENADULT ---
HPI - General Adult General Chief complaint: Unspecified Stated complaint: nausea and chills Time Seen by Provider: 10/13/23 06:42 History of Present Illness HPI narrative: Patient is a poor hisotrian This is a 63-year-old male presenting ED with chief complaint of chills x 7 days. Patient moved to a due to long-term 1 week ago. Patient says that he does not like it there. He says they have not been able to sort out his medications correctly. He says he is not able to sleep at night and that he is cold throughout the day. He called the ambulance to be brought to the hospital. The staff states that he did not voice any of these concerns to them over course of his stay. The patient says he does not want to go back to the long-term. Patient is denying fevers chills chest pain difficulty breathing or abdominal pain. Notes dysuria but has a chronic indwelling Durant catheter. He also has some pain in his sacral decubitus ulcer. Related Data Home Medications Medication Instructions Recorded Confirmed paroxetine HCl 30 mg tablet 30 mg PO HS 09/15/22 09/27/23 trazodone 150 mg tablet 150 mg PO HS 09/15/22 09/27/23 ascorbic acid (vitamin C) 500 mg 500 mg PO DAILY 04/14/23 09/27/23 tablet multivitamin with minerals 1 tablet PO DAILY 04/14/23 09/27/23 (Multiple Vitamin-Minerals tablet) zinc sulfate 50 mg zinc (220 mg) 50 mg PO DAILY 04/14/23 09/27/23 tablet acetaminophen 325 mg capsule 650 mg PO Q4H PRN pain fever 09/27/23 09/27/23 (Tylenol) amino acids-protein hydrolysate 17 30 ea PO BID 09/27/23 09/27/23 gram-100 kcal/30 mL oral liquid (Pro-Stat AWC) atorvastatin 10 mg tablet 10 mg PO HS 09/27/23 09/27/23 cyclobenzaprine 10 mg tablet 10 mg PO TID 09/27/23 09/27/23 docusate sodium 100 mg capsule 100 mg PO BID 09/27/23 09/27/23 (Colace) ergocalciferol (vitamin D2) 1,000 2,000 unit PO DAILY 09/27/23 09/27/23 unit capsule guaifenesin 400 mg tablet 400 mg PO Q6H PRN Congestion 09/27/23 09/27/23 melatonin 3 mg tablet 9 mg PO HS 09/27/23 09/27/23 oxybutynin chloride 5 mg tablet 5 mg PO Q8H PRN bph 09/27/23 09/27/23 pantoprazole 40 mg tablet,delayed 40 mg PO DAILY 09/27/23 09/27/23 release sennosides 8.6 mg-docusate sodium 1 tab-cap PO Q12H PRN Constipation 09/27/23 09/27/23 50 mg capsule Allergies Allergy/AdvReac Type Severity Reaction Status Date / Time allopurinol Allergy Unknown Rash Verified 04/29/23 10:59 carbamazepine Allergy Unknown Rash Verified 04/29/23 10:59 cyclobenzaprine Allergy Unknown Rash Verified 04/29/23 10:59 diclofenac Allergy Unknown Rash Verified 04/29/23 10:59 adhesive tape Allergy Rash Verified 04/29/23 10:59 PMFSH Past Medical History Medical History Alcohol abuse Chronic kidney disease Chronic pain syndrome Depression with anxiety Gout History of GI bleed History of meningitis Hydronephrosis Hyperlipidemia Hypertension Legally blind Left eye YOSEPH on CPAP Peripheral neuropathy Urinary retention Surgical History Surgical History H/O cataract extraction H/O hand surgery H/O inguinal hernia repair H/O Spinal surgery L3 through L5 laminectomy with fusion History of tonsillectomy Family History Family History Mother Patient's mother is in good health Father Patient's father is Congestive heart failure Acute myocardial infarction Hypertension Grandparent Cerebrovascular accident Cancer Unknown No problems noted. Sibling Hypertension Sibling Hypertension Social History Social History Social History: The patient lives home alone. He is a former smoker. The patient used to be heavy smoker smoking up to 2-3 packs of cigarettes for several years. The patient was known to drink 8-10 beers a day, states he drinks
--- NOTE | 2023-10-13 09:40 | PCCCNOTE ---
Addendum entered by Soraya Chung RN 10/13/23 15:32: Pt refused safe discharge plan. Addendum entered by Soraya Chung RN 10/13/23 15:01: Mercedes and vm[employer] systems administrator saw pt to try to get him to return to facility with a plan to return him home with HH and caregivers. [facility]. Pt is alert and oriented x 3. Aunt and uncle came to see pt as mother is unable to and they were unable to convince pt to return to [facility] until HH and caregivers can be arranged for a safe discharge. Pt again refused. Pt under the impression that his aunt and uncle can transfer him home in their vehicle. Pt's PCP recently passed and his new provider is Malachi ROSALES with [facility]. He has not been seen by that provider so he will not be able to sign HH orders. Informed pt of this and that since he can, according to him, transfer to and from wheelchair, his insurance is unlikely to pay for an ambulance. Pt again continued to accept a safe discharge plan and is A&O x3; capable of making his own decisions, has decided to return to his home via ambulance. Original Note: Referral received for jail placement. Spoke with staff and they state pt does not want to return to [facility] where pt has been for last few weeks. Spoke with pt who confirmed he does not want to return there and wants to go home. He states he hasn't been home for 9 months and has been cold x 1 week which is why he came here. He also thinks he is not receiving his medication correctly there. He states he does not have anything set up for home. He doesn't have wound care set up, no rn homecare services and likely not all the equipment/supplies he needs. Pt then stated he would like to go to his mother's home but doesn't want us to call her. He will call her. He states she is taking care of her who is in hospice. When asked, he stated he would not have a bed at her house to sleep in. He is requesting to go outside so he can warm up and make phone calls. Nursing staff informed. Call placed to Mercedes with [facility] who stated she will be coming here to speak with him as she thinks he would be willing to return there. Nursing staff informed Mercedes, from [facility], will be coming to see pt.
--- NOTE | 2023-10-13 10:00 | PC.NURSE ---
pt requesting to sit in a wheelchair outside. informed pt he is a fall risk and this RN needs him in a room for his safety. offered pt a recliner to sit in. pt refused. gave pt warm blankets. pt has phone in room and is making phone calls. care coordination informed this RN that Mercedes, with [facility], will be by to speak with patient.
--- NOTE | 2023-10-13 12:36 | PC.NURSE ---
pt requesting to go to his mother's home. pt requesting for this RN to call his mother. called pt's mother and left a voicemail. staff from [facility] talked with pt and pt still refusing to go back to facility. pt's family in room to speak with pt about going back to facility. pt is still refusing. called care coordination and she states she will talk to her boss and report back.
--- NOTE | 2023-10-13 14:05 | PC.NURSE ---
called PT for evaluation. they state they will be down to evaluate pt in about an hour.
--- NOTE | 2023-10-13 14:14 | PC.NURSE ---
Per Dr. Celaya, pt unable to care for himself and PT eval is not required. pt will return to [facility] via ems.
--- NOTE | 2023-10-13 15:07 | PC.NURSE ---
attempted to call report back to [facility]. They state pt had left AMA. called care coordination, she also spoke with [facility] and agreed pt did leave AMA. pt is alert and oriented x 4 and able to make his own medical decisions. pt requesting to go to his own home. Computer Tech arranging transport for pt to return to his residence.
[2023-10-13] MEDS: ACETAMINOPHEN 500 MG TABLET 1000 MG PO (15:27)
== END 2023-10-13 16:19 ==
PROVIDERS: Emergency Medicine; Emergency Provider Emergency Medicine
DX: R53.83 Other fatigue (principal); I12.9 Hypertensive chronic kidney disease with stage 1 through stage 4 chronic kidney disease, or unspecified chronic kidney disease; N18.9 Chronic kidney disease, unspecified; E78.5 Hyperlipidemia, unspecified; G47.33 Obstructive sleep apnea (adult) (pediatric); H54.8 Legal blindness, as defined in USA; M10.9 Gout, unspecified; G89.4 Chronic pain syndrome; G62.9 Polyneuropathy, unspecified; F17.220 Nicotine dependence, chewing tobacco, uncomplicated; F41.8 Other specified anxiety disorders; Z66 Do not resuscitate; Z98.1 Arthrodesis status; Z98.49 Cataract extraction status, unspecified eye; I45.10 Unspecified right bundle-branch block; I49.1 Atrial premature depolarization
CPT/HCPCS: 36415; 80053; 81001; 83605; 85025; 85610; 85730; 86140; 87077; 87086; 87088; 87186; 93005; 99284; A9270

== ENCOUNTER 2023-10-17 14:25 | Emergency (ER) | payer MEDICARE, BC, SELFPAY ==
[2023-10-17 14:33] VITALS: BP 136/80; PULSE 93; RESP 20; TEMP 36.7; O2SAT 97
--- NOTE | 2023-10-17 15:20 | ED.GENADULT ---
HPI - General Adult General Chief complaint: Wound/Laceration Stated complaint: states infected bed sore Time Seen by Provider: 10/17/23 14:31 History of Present Illness HPI narrative: Patient is a 63-year-old male who presents ER for evaluation of his decubitus ulcer. Reports he signed out AMA from his [facility] several days ago. Since then he has realized that this was the wrong decision and would like to go back. He reports that he has noted some drainage from his decubitus ulcer and would like to make sure does not appear infected. He has had no new fevers or chills. No body aches. Has chronic indwelling Durant that he reports is unchanged. Patient can only transfer and cannot walk. Related Data Home Medications Medication Instructions Recorded Confirmed paroxetine HCl 30 mg tablet 30 mg PO HS 09/15/22 09/27/23 trazodone 150 mg tablet 150 mg PO HS 09/15/22 09/27/23 ascorbic acid (vitamin C) 500 mg 500 mg PO DAILY 04/14/23 09/27/23 tablet multivitamin with minerals 1 tablet PO DAILY 04/14/23 09/27/23 (Multiple Vitamin-Minerals tablet) zinc sulfate 50 mg zinc (220 mg) 50 mg PO DAILY 04/14/23 09/27/23 tablet acetaminophen 325 mg capsule 650 mg PO Q4H PRN pain fever 09/27/23 09/27/23 (Tylenol) amino acids-protein hydrolysate 17 30 ea PO BID 09/27/23 09/27/23 gram-100 kcal/30 mL oral liquid (Pro-Stat AWC) atorvastatin 10 mg tablet 10 mg PO HS 09/27/23 09/27/23 cyclobenzaprine 10 mg tablet 10 mg PO TID 09/27/23 09/27/23 docusate sodium 100 mg capsule 100 mg PO BID 09/27/23 09/27/23 (Colace) ergocalciferol (vitamin D2) 1,000 2,000 unit PO DAILY 09/27/23 09/27/23 unit capsule guaifenesin 400 mg tablet 400 mg PO Q6H PRN Congestion 09/27/23 09/27/23 melatonin 3 mg tablet 9 mg PO HS 09/27/23 09/27/23 oxybutynin chloride 5 mg tablet 5 mg PO Q8H PRN bph 09/27/23 09/27/23 pantoprazole 40 mg tablet,delayed 40 mg PO DAILY 09/27/23 09/27/23 release sennosides 8.6 mg-docusate sodium 1 tab-cap PO Q12H PRN Constipation 09/27/23 09/27/23 50 mg capsule alprazolam 0.5 mg tablet 0.25 mg PO BID 10/17/23 Allergies Allergy/AdvReac Type Severity Reaction Status Date / Time allopurinol Allergy Unknown Rash Verified 10/17/23 14:41 carbamazepine Allergy Unknown Rash Verified 10/17/23 14:41 cyclobenzaprine Allergy Unknown Rash Verified 10/17/23 14:41 diclofenac Allergy Unknown Rash Verified 10/17/23 14:41 adhesive tape Allergy Rash Verified 10/17/23 14:41 Review of Systems Review of Systems: All systems reviewed & are unremarkable except as noted in HPI and below Constitutional: Constitutional: Reports no additional constitutional complaints ENT: Reports system reviewed and no additional complaints, except as documented Cardiovascular: Cardiovascular: Reports no additional cardiovascular complaints Respiratory: Respiratory: Reports no additional respiratory complaints Musculoskeletal: Musculoskeletal: Reports no additional musculoskeletal complaints Integumentary/Breasts: Skin/Breast: Reports skin ulcer (Large decubitus ulcer) [facility] Past Medical History Medical History Alcohol abuse Chronic kidney disease Chronic pain syndrome Depression with anxiety Gout History of GI bleed History of meningitis Hydronephrosis Hyperlipidemia Hypertension Legally blind Left eye YOSEPH on CPAP Peripheral neuropathy Urinary retention Surgical History Surgical History H/O cataract extraction H/O hand surgery H/O inguinal hernia repair H/O Spinal surgery L3 through L5 laminectomy with fusion History of tonsillectomy Family History Family History Mother Patient's mother is in good health Father Patient's father is Congestive heart failure Acute myocardial infarction Hypertension Grandparent Cerebrovascular accident Maryse
[2023-10-17 15:53] LABS: Alanine Aminotransferase 10 U/L (6-50); Albumin Level 4.1 g/dL (3.5-5.1); Alkaline Phosphatase 128 U/L (38-126); Anion Gap 9 mmol/L (4-12); Aspartate Amino Transferase 23 U/L (17-59); Bilirubin,Total 0.8 mg/dL (0.2-1.3); Blood Urea Nitrogen 14 mg/dL (9-20); Carbon Dioxide 27 mmol/L (22-30); Chloride 98 mmol/L (98-107); Estimated CRCL calculation 60 ml/min; Estimated Glomerular Filt Rate 51; Glucose 97 mg/dL (65-110); Potassium 3.5 mmol/L (3.4-5.0); Sodium 134 mmol/L (137-145)
[2023-10-17 16:25] LABS: Basophils Percent Auto 0.4 % (0.2-1.2); Eosinophils Absolute Auto 0.9 K/mm3 (0-0.3); Eosinophils Percent Auto 7.7 % (0-4.4); Hematocrit 36.1 % (42.0-52.0); Hemoglobin 11.3 g/dL (14.0-18.0); Immature Granulocyte Absolute 0.03 K/mm3 (0.00-0.031); Immature Granulocyte Percent A 0.3 % (0-0.5); Lymphocytes Absolute Auto 2.46 K/mm3 (0.9-3.2); Lymphocytes Percent Auto 21.7 % (18.3-44.2); Mean Corpuscular HGB Conc 31.3 g/dl (32-36); Mean Corpuscular Hemoglobin 25.2 pg (26-34); Mean Corpuscular Volume 80.6 fl (80-100); Mean Platelet Volume 8.8 fl (7.4-10.4); Monocytes Absolute Auto 0.9 K/mm3 (0.1-0.6); Monocytes Percent Auto 7.6 % (2.6-8.5); Neutrophils Absolute Auto 7.1 K/mm3 (1.3-6.7); Neutrophils Percent Auto 62.3 % (45.5-73.1); Platelet Count Result 342 k/mm3 (150-375); Red Blood Count 4.48 M/mm3 (4.6-6.20); Red Cell Distribution Width 18.9 % (11.5-14.5); White Blood Count 11.3 K/mm3 (4.5-10.0)
[2023-10-17 16:52] VITALS: BP 144/80; PULSE 63; RESP 19; O2SAT 99
== END 2023-10-17 18:07 ==
PROVIDERS: Emergency Provider Emergency Medicine
DX: L89.90 Pressure ulcer of unspecified site, unspecified stage (principal); I12.9 Hypertensive chronic kidney disease with stage 1 through stage 4 chronic kidney disease, or unspecified chronic kidney disease; N18.9 Chronic kidney disease, unspecified; E78.5 Hyperlipidemia, unspecified; Z87.891 Personal history of nicotine dependence
CPT/HCPCS: 36415; 80053; 85025; 99283

== ENCOUNTER 2023-10-20 11:03 | Emergency (ER) | payer MEDICARE, BC, SELFPAY ==
--- NOTE | ~2023-10-20 | CT_ITS ---
CT abdomen pelvis w con Ordering provider: Lei Shelby MD History: 63 years Male with . large sacral ducb with overt infection and pus . Comparison: October 01, 2023 Technique: CT abdomen and pelvis with IV and without oral contrast. Automated exposure control and it erative reconstruction technique were employed. The dose-length product was 1330.66 mGy-cm. 100 MLO O mnipaque 350 was given IV. Findings: VISUALIZED LOWER CHEST: Normal. Dependent atelectatic changes in the right lung base. Left ventricula r dilatation. UPPER ABDOMINAL ORGANS: Liver: Normal. Gallbladder: Normal. Spleen: Normal. Stomach/duodenum: Sliding hiatus hernia. Pancreas: Normal. Adrenals: Normal. Kidneys: Normal. PELVIC ORGANS: The bladder shows markedly thickened wall. Further evaluation advised. Durant's cathete r is seen BOWEL AND MESENTERY: Colon: Mild sigmoid diverticulosis without diverticulitis. Normal appendix. Small Bowel: Normal. No obstruction. Peritoneum/mesentery: No free air or free fluid. No mesenteric lymphadenopathy. RETROPERITONEUM: Mild atheromatous disease of the abdominal aorta. No retroperitoneal lymphadenopat hy. MUSCULOSKELETAL: Superficial soft tissues: A soft tissue density with ulceration is seen in the right buttock area wit h no definite abscess formation. Air is seen in the soft tissue density which measures 7.8 x 1.9 x 13 .3 cm.. Colostomy is seen in the midline of the abdomen Otherwise, The superficial soft tissues are n ormal. Bones: Age appropriate degenerative changes of the spine. Postoperative changes in the lower spine. S evere left hip osteoarthritic changes. IMPRESSION: 1. Soft tissue density with ulceration seen in the right buttock. No abscess formation seen. 2. Markedly thickened wall of the bladder. Further evaluation advised. 3. Colostomy is seen in the anterior abdominal wall. Reviewed, dictated and finalized at location A. IMPRESSION: 1. Soft tissue density with ulceration seen in the right buttock. No abscess f ormation seen. 2. Markedly thickened wall of the bladder. Further evaluation advised. 3. Colostomy is seen in the anterior abdominal wall.
--- NOTE | ~2023-10-20 | XR_ITS ---
XR shoulder LT min 2V 10/20/2023 11:33 Indication: Left shoulder pain Procedure: 4 views left shoulder Comparison: No prior studies for comparison. Findings: There is polyarticular osteoarthritis of the left shoulder. Osteopenia. No acute fracture o r traumatic malalignment. No significant soft tissue abnormality. No foreign bodies. Impression: 1: No acute fracture. Reviewed, dictated and finalized at location B. Impression: 1: No acute fracture.
--- NOTE | ~2023-10-20 | CT_ITS ---
EXAMINATION: CT cervical spine wo con DATE: 10/20/2023 11:20 INDICATION: Neck pain after fall TECHNIQUE: Computed tomography (CT) of the cervical spine was performed without intravenous contrast. The dose-length product was 603 mGy-cm. Automated exposure control and iterative reconstruction tech nique were employed. COMPARISON: CT dated 10/05/2022 there is a small right mastoid effusion. FINDINGS: Status post posterior cervical fusion extending from C4-C7. There is moderate degenerative disc disease. Craniovertebral junction is normal. Vertebral body heights are maintained. There is dem ineralization of the cervical spine. There is carotid atherosclerosis. Odontoid process is normal. Jennifer ng apices are unremarkable. No acute fracture or traumatic malalignment. IMPRESSION: 1. No acute bone or joint abnormality. Reviewed, dictated and finalized at location B.
--- NOTE | ~2023-10-20 | CT_ITS ---
CT brain wo con Ordering provider: Ramya Lujan III DO History: 63 years Male with . fall . Comparison: None. Technique: CT of the head without contrast. Radiation reduction technique utilized. The dose-length product was 681.mGy-cm. FINDINGS: BRAIN PARENCHYMA AND CSF SPACES: Left frontal isodense area is seen which may indicate chronic subdur al hematoma. MRI evaluation advised. This area measures 0.5 cm. Mild leukoaraiosis and diffuse cortic al atrophy. Mild atheromatous disease. No midline shift, mass effect or hemorrhage. The brain parenc hyma and CSF spaces are otherwise normal. VISUALIZED PARANASAL SINUSES: Well aerated. MASTOIDS: Well aerated. BONES: The bones appear intact. SOFT TISSUES: Visualized nasopharynx is normal. Superficial soft tissues are normal. IMPRESSION: Possible chronic left frontal subdural hematoma. MRI evaluation advised. Otherwise, No acute intracra nial findings. Reviewed, dictated and finalized at location A. IMPRESSION: Possible chronic left frontal subdural hematoma. MRI evaluation advised. Otherw ise, No acute intracranial findings.
[2023-10-20 10:53] VITALS: PULSE 82; RESP 18; TEMP 36.6; O2SAT 100
--- NOTE | 2023-10-20 11:14 | PC.NURSE ---
Patient to cat scan
[2023-10-20 13:09] LABS: Basophils Percent Auto 0.3 % (0.2-1.2); Eosinophils Absolute Auto 0.4 K/mm3 (0-0.3); Eosinophils Percent Auto 4.4 % (0-4.4); Hematocrit 36.3 % (42.0-52.0); Hemoglobin 11.4 g/dL (14.0-18.0); Immature Granulocyte Absolute 0.03 K/mm3 (0.00-0.031); Immature Granulocyte Percent A 0.3 % (0-0.5); Lymphocytes Absolute Auto 1.51 K/mm3 (0.9-3.2); Mean Corpuscular HGB Conc 31.4 g/dl (32-36); Mean Corpuscular Hemoglobin 25.3 pg (26-34); Mean Corpuscular Volume 80.7 fl (80-100); Mean Platelet Volume 9.2 fl (7.4-10.4); Monocytes Absolute Auto 0.4 K/mm3 (0.1-0.6); Monocytes Percent Auto 4.8 % (2.6-8.5); Neutrophils Absolute Auto 6.5 K/mm3 (1.3-6.7); Neutrophils Percent Auto 73.2 % (45.5-73.1); Platelet Count Result 366 k/mm3 (150-375); Red Cell Distribution Width 19.3 % (11.5-14.5); White Blood Count 8.9 K/mm3 (4.5-10.0)
[2023-10-20 13:10] LABS: INR 1.1; Prothrombin Time 14.4 Seconds (11.1-14.7)
[2023-10-20 13:11] LABS: Partial Thromboplastin Time 37.3 Seconds (22.3-36.8)
[2023-10-20 13:18] LABS: Alanine Aminotransferase 9 U/L (6-50); Albumin Level 4.2 g/dL (3.5-5.1); Alkaline Phosphatase 136 U/L (38-126); Anion Gap 12 mmol/L (4-12); Aspartate Amino Transferase 17 U/L (17-59); Bilirubin,Total 0.6 mg/dL (0.2-1.3); Blood Urea Nitrogen 11 mg/dL (9-20); CRP 4.3 mg/dL (<1.0); Calcium 9.1 mg/dL (8.4-10.2); Carbon Dioxide 26 mmol/L (22-30); Chloride 103 mmol/L (98-107); Estimated CRCL calculation 58 ml/min; Estimated Glomerular Filt Rate 51; Glucose 107 mg/dL (65-110); Potassium 3.4 mmol/L (3.4-5.0); Sodium 141 mmol/L (137-145)
[2023-10-20] MEDS: MORPHINE SULFATE (*CRX) 4 MG/ML INJ IV PUSH (13:37)
[2023-10-20] MEDS: ALPRAZolam (*CRX) 0.5 MG TABLET 0.25 MG PO (13:38)
[2023-10-20] MEDS: LACTATED RINGERS 1,000 ML 999 ML IV CONT (13:38)
--- NOTE | 2023-10-20 13:38 | ED.FALL ---
HPI - Fall General Chief Complaint: Fall Stated Complaint: neck/shoulder pain after fall Time Seen by Provider: 10/20/23 11:55 History of Present Illness HPI Narrative: This is a 63-year-old male presenting [facility]. The patient has history of being bedbound and has a large sacral decubitus ulcer that has been progressively worsening according to himself. Patient has a history of COPD with a chronic indwelling Durant catheter as well. Patient states that today he was trying to get off of his buttock region where he was having increasing pain. He states that when he tried to lift himself off he slid onto his right side info from his bed and struck his head on the ground. Patient states he did not lose consciousness and is not presently taking any blood thinning medications. Patient states that he was not able to get up without assistance and EMS was called. Patient states that he has been having worsening pain in his buttock region from his sacral ulcer noticing that he has been having purulent drainage and foul odor from this. He is having subjective fever and chills as well as for weakness. He is not present any antibiotics according to himself. He has a chronic indwelling Duarnt catheter without any back pain or urinary symptoms according to himself. He is endorsing no neck pain and refused C collar via EMS. Patient states he is globally weak without any new neurological deficits and is able to move all his extremities. He is also complaining of some left shoulder pain without any limited range of motion. No chest pain, shortness a breath, nausea, vomiting, back pain, focal weakness or new sensory deficits. MD complaint: fall Fall from: out of bed Fall witnessed: no Place fall occurred: skilled nursing/SNF Loss of consciousness: none Location of injury - extremities: Left: shoulder (ttp left AC without deformity) Severity: mild Related Data Home Medications Medication Instructions Recorded Confirmed paroxetine HCl 30 mg tablet 30 mg PO HS 09/15/22 09/27/23 trazodone 150 mg tablet 150 mg PO HS 09/15/22 09/27/23 ascorbic acid (vitamin C) 500 mg 500 mg PO DAILY 04/14/23 09/27/23 tablet multivitamin with minerals 1 tablet PO DAILY 04/14/23 09/27/23 (Multiple Vitamin-Minerals tablet) zinc sulfate 50 mg zinc (220 mg) 50 mg PO DAILY 04/14/23 09/27/23 tablet acetaminophen 325 mg capsule 650 mg PO Q4H PRN pain fever 09/27/23 09/27/23 (Tylenol) amino acids-protein hydrolysate 17 30 ea PO BID 09/27/23 09/27/23 gram-100 kcal/30 mL oral liquid (Pro-Stat AWC) atorvastatin 10 mg tablet 10 mg PO HS 09/27/23 09/27/23 cyclobenzaprine 10 mg tablet 10 mg PO TID 09/27/23 09/27/23 docusate sodium 100 mg capsule 100 mg PO BID 09/27/23 09/27/23 (Colace) ergocalciferol (vitamin D2) 1,000 2,000 unit PO DAILY 09/27/23 09/27/23 unit capsule guaifenesin 400 mg tablet 400 mg PO Q6H PRN Congestion 09/27/23 09/27/23 melatonin 3 mg tablet 9 mg PO HS 09/27/23 09/27/23 oxybutynin chloride 5 mg tablet 5 mg PO Q8H PRN bph 09/27/23 09/27/23 pantoprazole 40 mg tablet,delayed 40 mg PO DAILY 09/27/23 09/27/23 release sennosides 8.6 mg-docusate sodium 1 tab-cap PO Q12H PRN Constipation 09/27/23 09/27/23 50 mg capsule alprazolam 0.5 mg tablet 0.25 mg PO BID 10/17/23 Allergies Allergy/AdvReac Type Severity Reaction Status Date / Time allopurinol Allergy Unknown Rash Verified 10/17/23 14:41 carbamazepine Allergy Unknown Rash Verified 10/17/23 14:41 cyclobenzaprine Allergy Unknown Rash Verified 10/17/23 14:41 diclofenac Allergy Unknown Rash Verified 10/17/23 14:41 adhesive tape Allergy Rash Verified 10/17/23 14:41 Review of Systems Review of Systems: CONSTITUTIONAL: Endorses fever and chills. EYES: Denies visual changes, redness, or discharge. ENT: Denies rhinorrhea, congestion, sore throat, or otalgia. CARDIOVASCULAR: Denies chest pain, palpitations, or edema. RESPIRATORY: Denies cough or dyspnea. GASTRO
[2023-10-20 13:44] VITALS: BP 188/99; PULSE 86; RESP 18; O2SAT 96
--- NOTE | 2023-10-20 13:44 | PC.NURSE ---
Will start antibiotic after cultures are drawn
--- NOTE | 2023-10-20 13:54 | PC.NURSE ---
Per provider, we can start the antibiotic prior to getting the second set of cultures. phlebotomy called to obtain cultures.
--- NOTE | 2023-10-20 14:04 | PC.NURSE ---
Patient has a large wound on his coccyx that has is being treated prior to arrival to this ED. Mepilex in place upon arrival to the ED
[2023-10-20] MEDS: CEFEPIME 2 GM/NS 50 ML 2 GM/50 ML BAG IVPB (14:26)
--- NOTE | 2023-10-20 14:51 | PC.NURSE ---
Phlebotomy to bedside to attempt to draw blood cultures. she was unsuccessful X1 and patient refused to let anyone poke him again.
[2023-10-20 15:02] VITALS: BP 165/100; PULSE 86; RESP 20; O2SAT 100
== END 2023-10-20 15:06 | disposition short-term general hospital (02) ==
PROVIDERS: Emergency Provider Student in an Organized Health Care Education/Training Program
DX: S06.5X0A Traumatic subdural hemorrhage without loss of consciousness, initial encounter (principal); L89.154 Pressure ulcer of sacral region, stage 4; L08.9 Local infection of the skin and subcutaneous tissue, unspecified; J44.9 Chronic obstructive pulmonary disease, unspecified; I12.9 Hypertensive chronic kidney disease with stage 1 through stage 4 chronic kidney disease, or unspecified chronic kidney disease; N18.9 Chronic kidney disease, unspecified; E78.5 Hyperlipidemia, unspecified; M10.9 Gout, unspecified; G89.29 Other chronic pain; G47.33 Obstructive sleep apnea (adult) (pediatric); G62.9 Polyneuropathy, unspecified; H54.8 Legal blindness, as defined in USA; Z98.1 Arthrodesis status; Z93.3 Colostomy status; Z98.49 Cataract extraction status, unspecified eye; Z87.891 Personal history of nicotine dependence; Z79.899 Other long term (current) drug therapy; Z74.01 Bed confinement status; R93.41 Abnormal radiologic findings on diagnostic imaging of renal pelvis, ureter, or bladder; W06.XXXA Fall from bed, initial encounter
CPT/HCPCS: 36415; 70450; 72125; 73030; 74177; 80053; 83605; 85025; 85610; 85730; 86140; 87040; 96361; 96365; 96375; 99285; A9270; J0692; J2270; J7120; Q9967

== ENCOUNTER 2023-11-26 17:46 | Emergency (ER) | payer MEDICARE, BC, SELFPAY ==
[2023-11-26 17:44] VITALS: BP 94/51; PULSE 80; RESP 16; TEMP 36.8; O2SAT 96
--- NOTE | 2023-11-26 18:38 | ED.MALEGU ---
HPI - Male Genitourinary General Chief complaint: Urogenital-Male Stated complaint: urine retention Source: patient Mode of arrival: EMS Limitations: no limitations History of Present Illness HPI Narrative: [age] a history of hypertension, hyperlipidemia, neuropathy decubitus ulcer, colostomy, BPH is brought in from home with complaints of unable to urinate since this morning. He denies any fever or chills. No recent surgeries or medication change. he denies any fever or chills. MD Complaint: other (unable to urinate) Onset (ago): day(s) (1) Duration: constant Exacerbating factors: none Related Data Home Medications Medication Instructions Recorded Confirmed paroxetine HCl 30 mg tablet 30 mg PO HS 09/15/22 09/27/23 trazodone 150 mg tablet 150 mg PO HS 09/15/22 09/27/23 ascorbic acid (vitamin C) 500 mg 500 mg PO DAILY 04/14/23 09/27/23 tablet multivitamin with minerals 1 tablet PO DAILY 04/14/23 09/27/23 (Multiple Vitamin-Minerals tablet) zinc sulfate 50 mg zinc (220 mg) 50 mg PO DAILY 04/14/23 09/27/23 tablet acetaminophen 325 mg capsule 650 mg PO Q4H PRN pain fever 09/27/23 09/27/23 (Tylenol) amino acids-protein hydrolysate 17 30 ea PO BID 09/27/23 09/27/23 gram-100 kcal/30 mL oral liquid (Pro-Stat AWC) atorvastatin 10 mg tablet 10 mg PO HS 09/27/23 09/27/23 cyclobenzaprine 10 mg tablet 10 mg PO TID 09/27/23 09/27/23 docusate sodium 100 mg capsule 100 mg PO BID 09/27/23 09/27/23 (Colace) ergocalciferol (vitamin D2) 1,000 2,000 unit PO DAILY 09/27/23 09/27/23 unit capsule guaifenesin 400 mg tablet 400 mg PO Q6H PRN Congestion 09/27/23 09/27/23 melatonin 3 mg tablet 9 mg PO HS 09/27/23 09/27/23 oxybutynin chloride 5 mg tablet 5 mg PO Q8H PRN bph 09/27/23 09/27/23 pantoprazole 40 mg tablet,delayed 40 mg PO DAILY 09/27/23 09/27/23 release sennosides 8.6 mg-docusate sodium 1 tab-cap PO Q12H PRN Constipation 09/27/23 09/27/23 50 mg capsule alprazolam 0.5 mg tablet 0.25 mg PO BID 10/17/23 Allergies Allergy/AdvReac Type Severity Reaction Status Date / Time allopurinol Allergy Unknown Rash Verified 10/17/23 14:41 carbamazepine Allergy Unknown Rash Verified 10/17/23 14:41 cyclobenzaprine Allergy Unknown Rash Verified 10/17/23 14:41 diclofenac Allergy Unknown Rash Verified 10/17/23 14:41 adhesive tape Allergy Rash Verified 10/17/23 14:41 Review of Systems Review of Systems: All systems reviewed & are unremarkable except as noted in HPI and below Constitutional: Constitutional: Reports no additional constitutional complaints Eyes: Eyes: Reports no additional eye complaints ENT: Reports system reviewed and no additional complaints, except as documented Cardiovascular: Cardiovascular: Reports no additional cardiovascular complaints Respiratory: Respiratory: Reports no additional respiratory complaints Gastrointestinal: Gastrointestinal: Reports no additional gastrointestinal complaints Genitourinary: Genitourinary: Reports as per HPI Integumentary/Breasts: Skin/Breast: Reports system reviewed and no additional complaints, except as docu PMFSH Past Medical History Medical History Alcohol abuse Chronic kidney disease Chronic pain syndrome Depression with anxiety Gout History of GI bleed History of meningitis Hydronephrosis Hyperlipidemia Hypertension Legally blind Left eye YOSEPH on CPAP Peripheral neuropathy Urinary retention Surgical History Surgical History H/O cataract extraction H/O hand surgery H/O inguinal hernia repair H/O Spinal surgery L3 through L5 laminectomy with fusion History of tonsillectomy Family History Family History Mother Patient's mother is in good health Father Patient's father is Congestive heart failure Acute myocardial infarction H
[2023-11-26 18:45] VITALS: BP 90/61; PULSE 80; RESP 16; O2SAT 99
[2023-11-26 18:49] LABS: Add Urine Microscopic? YES; Appearance Urine Clear (Clear); Bacteria Urine None Seen /hpf; Bilirubin Urine Negative (Negative); Blood Urine Negative (Negative); Color Urine Yellow (Yellow); Glucose Urine UA Negative (Negative); Ketones Urine Negative (Negative); Leukocyte Esterase Ur 2+ LEU/UL (Negative); Need Manual Microscopic Reviewed; Nitrate Urine Negative (Negative); Protein Urine 1+ mg/dL (Negative); Specific Grav Ur 1.016 (1.001-1.035); Squamous Epithelial Cell Urine None Seen /hpf (Few); Urobilinogen Urine 0.2 mg/dL (<2.0); WBC Urine 51-100 /hpf (0-3); pH Urine 5.5 (5.0-9.0)
--- NOTE | 2023-11-26 18:53 | PC.NURSE ---
Pt refusing IV, lab work and IV fluids at this time. Pt states I don't need this. The doctor only ordered this because I have insurance. EDP Dr. Benito aware.
--- NOTE | 2023-11-26 20:40 | PC.NURSE ---
Patient requesting something to help me relax . EDP made aware.
[2023-11-26] MEDS: LORazepam (*CRX) 1 MG TABLET PO (20:55)
[2023-11-26 22:54] VITALS: BP 127/81; PULSE 91; RESP 16; O2SAT 100
== END 2023-11-26 22:55 | disposition home or self-care (01) ==
LOC: ANHED 19:19
PROVIDERS: Emergency Provider Family Medicine
DX: N40.1 Benign prostatic hyperplasia with lower urinary tract symptoms (principal); R33.8 Other retention of urine; I12.9 Hypertensive chronic kidney disease with stage 1 through stage 4 chronic kidney disease, or unspecified chronic kidney disease; N18.9 Chronic kidney disease, unspecified; E78.5 Hyperlipidemia, unspecified; G89.4 Chronic pain syndrome; M10.9 Gout, unspecified; H54.8 Legal blindness, as defined in USA; G47.33 Obstructive sleep apnea (adult) (pediatric); G62.9 Polyneuropathy, unspecified; Z66 Do not resuscitate; Z98.49 Cataract extraction status, unspecified eye; Z87.891 Personal history of nicotine dependence
CPT/HCPCS: 51702; 81001; 87086; 99283; A9270

== ENCOUNTER 2024-01-26 18:28 | Inpatient (IN) | payer MEDICARE, BC, SELFPAY ==
--- NOTE | ~2024-01-26 | CT_ITS ---
CT of the Pelvis: Indication: Sacral wound, osteomyelitis Technique: 2.5 mm axial scans were obtained through the pelvis following intravenous administration of 100 cc of Omnipaque 350. Dose reduction technique was used on this scan by utilizing automated exp osure control and iterative reconstruction technique. The dose-length product (DLP) was 1526.06 mGy-c m. COMPARISON: 10/20/2023 Findings: There are atherosclerotic calcifications of the aorta and iliac vessels. No infrarenal abdo manfred aortic aneurysm seen. Durant catheter in place in urinary bladder. Small of air and possible blo od products present in the urinary bladder. Visualized bowel loops are unremarkable. Left lower quadr ant ostomy is present. No ascites. No pelvic lymphadenopathy seen. No inguinal lymphadenopathy. Sacral decubitus ulcer is present in the midline. There is probable chronic osteomyelitis and destruc tive change extensively involving the coccyx. There is posterior fusion from L3 through L5 with advan sumit degenerative spondylosis of the visualized lumbar spine. There is severe degenerative change of t he left hip joint. There is moderate degenerative change of the right hip joint. Impression: Midline sacral decubitus ulcer extending down to the coccyx. The coccyx itself is largely destroyed, suspicious for probable chronic osteomyelitis. Sacrum otherwise appears to be intact. Degenerative changes, as above. Questionable hyperdense material within the urinary bladder. Correlate for hematuria. Reviewed, dictated and finalized at [facility]. Impression: Midline sacral decubitus ulcer extending down to the coccyx. The coccyx itself is largely destroyed, suspicious for probable chronic osteomyelitis. Sacrum oth erwise appears to be intact. Degenerative changes, as above. Questionable hyperdense material within the urinary bladder. Correlate for miguelina turia.
[2024-01-26 18:30] VITALS: BP 117/61; PULSE 80; RESP 18; TEMP 36.4; O2SAT 98
--- NOTE | 2024-01-26 19:22 | PC.NURSE ---
received report from Cora RIOS. no pending orders at this time.
[2024-01-27] MEDS: MORPHINE SULFATE (*CRX) 4 MG/ML INJ IV PUSH ×4 (00:13→22:49)
[2024-01-27] MEDS: ONDANSETRON INJ 4 MG/2 ML VIAL IV PUSH (00:13)
[2024-01-27 00:27] LABS: Basophils Percent Auto 0.2 % (0.2-1.2); Eosinophils Absolute Auto 0.3 K/mm3 (0-0.3); Eosinophils Percent Auto 2.5 % (0-4.4); Hematocrit 41.5 % (42.0-52.0); Hemoglobin 13.1 g/dL (14.0-18.0); Immature Granulocyte Absolute 0.09 K/mm3 (0.00-0.031); Immature Granulocyte Percent A 0.8 % (0-0.5); Lymphocytes Absolute Auto 2.83 K/mm3 (0.9-3.2); Lymphocytes Percent Auto 25.7 % (18.3-44.2); Mean Corpuscular HGB Conc 31.6 g/dl (32-36); Mean Corpuscular Hemoglobin 27.9 pg (26-34); Mean Corpuscular Volume 88.3 fl (80-100); Mean Platelet Volume 9.5 fl (7.4-10.4); Monocytes Absolute Auto 0.5 K/mm3 (0.1-0.6); Monocytes Percent Auto 4.5 % (2.6-8.5); Neutrophils Absolute Auto 7.3 K/mm3 (1.3-6.7); Neutrophils Percent Auto 66.3 % (45.5-73.1); Platelet Count Result 218 k/mm3 (150-375); Red Cell Distribution Width 18.6 % (11.5-14.5)
[2024-01-27 00:28] LABS: Add Urine Microscopic? YES; Appearance Urine Clear (Clear); Bacteria Urine 1+ /hpf; Bilirubin Urine Negative (Negative); Blood Urine Negative (Negative); Color Urine Yellow (Yellow); Glucose Urine UA Negative (Negative); Ketones Urine Negative (Negative); Leukocyte Esterase Ur 2+ LEU/UL (Negative); Nitrate Urine Positive (Negative); Non Pathogenic Casts 0-2; Protein Urine 1+ mg/dL (Negative); RBC Urine 0-2 /hpf (0-2); Specific Grav Ur 1.011 (1.001-1.035); Squamous Epithelial Cell Urine None Seen /hpf (Few); Urobilinogen Urine 0.2 mg/dL (<2.0); WBC Urine 51-100 /hpf (0-3); pH Urine 5.5 (5.0-9.0)
[2024-01-27 00:33] LABS: Lactic Acid Reflex 1.3 mmol/L (0.7-2.0)
[2024-01-27 00:34] LABS: INR 1.1; Prothrombin Time 14.2 Seconds (11.1-14.7)
[2024-01-27 00:35] LABS: Partial Thromboplastin Time 33.9 Seconds (22.3-36.8)
[2024-01-27 00:37] LABS: Alanine Aminotransferase 20 U/L (6-50); Albumin Level 4.2 g/dL (3.5-5.1); Alkaline Phosphatase 100 U/L (38-126); Anion Gap 9 mmol/L (4-12); Aspartate Amino Transferase 23 U/L (17-59); Bilirubin,Total 0.6 mg/dL (0.2-1.3); Blood Urea Nitrogen 32 mg/dL (9-20); CRP 6.7 mg/dL (<1.0); Calcium 9.3 mg/dL (8.4-10.2); Carbon Dioxide 30 mmol/L (22-30); Chloride 104 mmol/L (98-107); Estimated CRCL calculation 59 ml/min; Estimated Glomerular Filt Rate 47; Glucose 100 mg/dL (65-110); Potassium 3.8 mmol/L (3.4-5.0); Sodium 143 mmol/L (137-145)
--- NOTE | 2024-01-27 01:46 | ED.WOUNDLAC ---
HPI - Wound/Laceration General Chief Complaint: Wound/Laceration Stated Complaint: bed sore Time Seen by Provider: 01/26/24 22:50 Source: patient and old records reviewed Mode of arrival: EMS Limitations: no limitations History of Present Illness HPI narrative: Patient is a 63-year-old male who presents the ED via EMS with report of sacral wound. Patient has long past medical history, colostomy, chronic indwelling Durant catheter, CKD, TBI, YOSEPH on CPAP, chronic pain syndrome, peripheral neuropathy, hx of alcohol abuse, chronic decubitus sacral ulcer. Has been seeing at our facility numerous times for complaints regarding his sacral ulcer. Has seen Dr. Brown and the surgical team here for numerous debridements of wounds. He is nonambulatory at baseline, is only able to transfer to and from his rollator. Currently living at home alone. States he has checked himself out of 4 different nursing homes. Has a home health nurse that comes 3 times a week to evaluate wound. States she attempted to place a wound VAC on Wednesday, but patient had too much pain with this and had it removed on Wednesday. He presents tonight due to worsening pain to his wound. He also complains of pain to his posterior scalp. Denies fevers. Related Data Home Medications Medication Instructions Recorded Confirmed paroxetine HCl 30 mg tablet 30 mg PO HS 09/15/22 09/27/23 trazodone 150 mg tablet 150 mg PO HS 09/15/22 09/27/23 ascorbic acid (vitamin C) 500 mg 500 mg PO DAILY 04/14/23 09/27/23 tablet multivitamin with minerals 1 tablet PO DAILY 04/14/23 09/27/23 (Multiple Vitamin-Minerals tablet) zinc sulfate 50 mg zinc (220 mg) 50 mg PO DAILY 04/14/23 09/27/23 tablet acetaminophen 325 mg capsule 650 mg PO Q4H PRN pain fever 09/27/23 09/27/23 (Tylenol) amino acids-protein hydrolysate 17 30 ea PO BID 09/27/23 09/27/23 gram-100 kcal/30 mL oral liquid (Pro-Stat AWC) atorvastatin 10 mg tablet 10 mg PO HS 09/27/23 09/27/23 cyclobenzaprine 10 mg tablet 10 mg PO TID 09/27/23 09/27/23 docusate sodium 100 mg capsule 100 mg PO BID 09/27/23 09/27/23 (Colace) ergocalciferol (vitamin D2) 1,000 2,000 unit PO DAILY 09/27/23 09/27/23 unit capsule guaifenesin 400 mg tablet 400 mg PO Q6H PRN Congestion 09/27/23 09/27/23 melatonin 3 mg tablet 9 mg PO HS 09/27/23 09/27/23 oxybutynin chloride 5 mg tablet 5 mg PO Q8H PRN bph 09/27/23 09/27/23 pantoprazole 40 mg tablet,delayed 40 mg PO DAILY 09/27/23 09/27/23 release sennosides 8.6 mg-docusate sodium 1 tab-cap PO Q12H PRN Constipation 09/27/23 09/27/23 50 mg capsule alprazolam 0.5 mg tablet 0.25 mg PO BID 10/17/23 Allergies Allergy/AdvReac Type Severity Reaction Status Date / Time allopurinol Allergy Unknown Rash Verified 10/17/23 14:41 carbamazepine Allergy Unknown Rash Verified 10/17/23 14:41 cyclobenzaprine Allergy Unknown Rash Verified 10/17/23 14:41 diclofenac Allergy Unknown Rash Verified 10/17/23 14:41 adhesive tape Allergy Rash Verified 10/17/23 14:41 Review of Systems Review of Systems: All systems reviewed & are unremarkable except as noted in HPI. All systems reviewed & are unremarkable except as noted in HPI and below PMFSH Past Medical History Medical History Alcohol abuse Chronic kidney disease Chronic pain syndrome Depression with anxiety Gout History of GI bleed History of meningitis Hydronephrosis Hyperlipidemia Hypertension Legally blind Left eye YOSEPH on CPAP Peripheral neuropathy Urinary retention Surgical History Surgical History H/O cataract extraction H/O hand surgery H/O inguinal hernia repair H/O Spinal surgery L3 through L5 laminectomy with fusion History of tonsillectomy Family History Family History Mother Patient's mother is in good health Father Patient's father is Congestive heart failure Acute myocardial infarction Hypertension Grandparent Cerebrovascular accident Cancer Unknown No problems noted. Sibling Hypertension Sibling Hypertension Social History Social History Social History: The patient lives home alone. He is a former smoker. The patient used to be heavy smoker smoking up to 2-3 packs of cigarettes for several years. The patient was known to drink 8-10 beers a day, states he drinks less than that now and not every day. He is retired and disabled in 1979. His mother Zita leonard is his contact center representative. Code status: DNR/DNI Smoking packs per day: 3 Smoking cigarettes per day: 60.0 Years smoked: 15 Smoking pack-years: 45.00 Smoking status: Former smoker Tobacco type: cigarettes Smokeless tobacco user: chewing tobacco Second hand tobacco smoke exposure: No Smoking end date: 03/29/04 Additional smoking assessment comments: CURRENT: SMOKELESS TOBACCO (01/2023) Alcohol intake: never Substance use: never Substance use type: does not use Other substance usage details: oxycodone Last use: t-1 Do You Feel Safe in your Home?: Yes Lack of Transportation: No Lack of Food: Never True Current Housing: I Have Housing Concerned About Future Housing: No Difficulty Paying Gas/Electric Bills: No Difficulty Paying for Meds: No Currently Unemployed: No Education: High School Diploma/GED Difficulty w/ Childcare or Family Care: No Occupation/Education: retired Additional occupation/education comments: Retired [employer] Gender identity (if verbalized by the patient): Male Spiritual care concerns: No Exam Narrative: GENERAL: Chronically ill-appearing, obese with BMI of 39.2, non-toxic, in no acute distress. HEAD: Normocephalic. Small circular area of fluctuance/abscess formation to posterior scalp. Small area draining purulent material. Focal TTP. RESPIRATORY: Airway patent, respirations nonlabored. Clear to auscultation bilaterally, no rales, rhonchi, wheezing. CARDIOVASCULAR: Regular rate and rhythm without murmurs, rubs, or gallops. ABDOMINAL: Soft. Normoactive BS. Colostomy in LLQ. Durant catheter in place. MUSCULOSKELETAL: Moves all extremities. No gross deformities. SKIN: Warm, dry, normal color. Large (larger than fist-sized) unstageable sacral decubitus pressure ulcer with extension to bilateral buttocks and almost to anus. No obvious bone exposure. Scattered areas of purulent drainage and blistered like regions. Some granulation tissue present in areas. No necrosis or sloughing of skin. Venous stasis changes to BLE. NEURO: A&O X3. Speech clear. Cranial nerves II-XII grossly intact. No ataxic movements. PSYCHIATRIC: Appropriate mood and affect. Normal interaction. Course Vital Signs Vital signs: Vital Signs Temperature 97.6 F 01/26/24 18:30 Pulse Rate 80 01/26/24 18:30 Respiratory Rate 18 01/26/24 18:30 Blood Pressure 117/61 01/26/24 18:30 Pulse Oximetry 98 01/26/24 18:30 Oxygen Delivery Room Air 01/26/24 18:30 Temperature 97.6 F 01/26/24 18:30 Pulse Rate 80 01/26/24 18:30 Respiratory Rate 18 01/26/24 18:30 Blood Pressure 117/61 01/26/24 18:30 Pulse Oximetry 98 01/26/24 18:30 Oxygen Delivery Room Air 01/26/24 18:30 MDM - Wound/Laceration MDM Narrative Medical decision making narrative: Patient presented to ED with pain related to chronic decubitus pressure ulcer. Patient nonambulatory at baseline, only able to perform some transfers on his own. He currently lives at home alone. He does have home health care a few times a week, patient does not seem to be able to move around much or care for himself on his own. Has been very demanding with staff here and requiring multiple nurses' help with simple movements/tasks. Has made irrational comments about nursing behavior. See additional nursing notes. Vital signs are stable here. Patient states he attempted to have a wound VAC placed earlier this week by home health, but was unable to tolerate this due to the pain. Wound is extremely large with areas that do appear acutely infected. At minimum, patient will need further wound care that he is receiving at this time. CBC is with white blood cell count of 11.0. Inflammatory markers are elevated. Creatinine is at its baseline. Lactic acid at 1.3. Urine appears infectious. Durant catheter was replaced in the ED. Blood and urine cultures obtained. Zosyn started for infected pressure ulcer per ED abx stewardship. Patient has tolerated this in the past. Previous positive urine cultures have been sensitive this as well. CT scan of pelvis showed stage IV decubitus ulcer with extension into the sacrum. No obvious osteomyelitis, but recommended pelvic MRI from further eval. Patient will be admitted for further care of decubitus ulcer, IV abx. I do not believe wound requires surgical debridement at this time, but will consult for wound care. I also emphasized with patient that I believe he would be better suited in a retirement more long-term care facility to receive more around the clock medical care for his complex conditions/wounds. Discussed case with Dr. Fernandez, hospitalist, accepted patient for admission. Patient is in agreement with plan for admission. Medical Records Attestation: I reviewed the patient's medical records. Lab Data Attestation: I reviewed the patient's lab results. 01/27/24 00:14 01/27/24 00:14 Labs: Lab Results 01/27/24 01/27/24 Range/Units 00:14 03:10 WBC 11.0 H (4.5-10.0) K/mm3 RBC 4.70 (4.6-6.20) M/mm3 Hgb 13.1 L (14.0-18.0) g/dL Hct 41.5 L (42.0-52.0) % MCV 88.3 (80-100) fl MCH 27.9 (26-34) pg MCHC 31.6 L (32-36) g/dl RDW 18.6 H (11.5-14.5) % Plt Count 218 (150-375) k/mm3 MPV 9.5 (7.4-10.4) fl Immature Gran % (Auto) 0.8 H (0-0.5) % Neut % (Auto) 66.3 (45.5-73.1) % Lymph % (Auto) 25.7 (18.3-44.2) % [place] % (Auto) 4.5 (2.6-8.5) % Eos % (Auto) 2.5 (0-4.4) % Baso % (Auto) 0.2 (0.2-1.2) % Lymph # (Auto) 2.83 (0.9-3.2) K/mm3 [place] # (Auto) 0.5 (0.1-0.6) K/mm3 Eos # (Auto) 0.3 (0-0.3) K/mm3 Baso # (Auto) 0.0 (0.0-0.1) K/mm3 Abs Immat Gran (auto) 0.09 H (0.00-0.031) K/mm3 Absolute Neuts (auto) 7.3 H (1.3-6.7) K/mm3 Absolute Nucleated RBC 0.000 (0.0-0.012) K/mm3 Nucleated RBC % 0.0 (0.0-0.2) % PT 14.2 (11.1-14.7) Seconds INR 1.1 APTT 33.9 (22.3-36.8) Seconds Sodium 143 (137-145) mmol/L Potassium 3.8 (3.4-5.0) mmol/L Chloride 104 (98-107) mmol/L Carbon Dioxide 30 (22-30) mmol/L Anion Gap 9 (4-12) mmol/L BUN 32 H D (9-20) mg/dL Creatinine 1.50 H (0.7-1.3) mg/dL Estim Creat Clear Calc 59 ml/min Estimated GFR 47 L (59 - ) Glucose 100 (65-110) mg/dL POC Capillary Glucose 104 (65-105) mg/dl Lactic Acid 1.3 (0.7-2.0) mmol/L Calcium 9.3 (8.4-10.2) mg/dL Total Bilirubin 0.6 (0.2-1.3) mg/dL AST 23 (17-59) U/L ALT 20 (6-50) U/L Alkaline Phosphatase 100 (38-126) U/L C-Reactive Protein 6.7 H (<1.0) mg/dL Total Protein 8.0 (6.3-8.2) g/dL Albumin 4.2 (3.5-5.1) g/dL Urine Color Yellow (Yellow) Urine Appearance Clear (Clear) Urine pH 5.5 (5.0-9.0) Ur Specific [place] 1.011 (1.001-1.035) Urine Protein 1+ H (Negative) mg/dL Urine Glucose (UA) Negative (Negative) mg/dL Urine Ketones Negative (Negative) mg/dL Ur Blood (Man) Negative (Negative) Urine Nitrate Positive H (Negative) Urine Bilirubin Negative (Negative) Urine Urobilinogen 0.2 (<2.0) mg/dL Leukocyte Esterase Rfl 2+ H (Negative) ADRIANNE/UL Urine RBC 0-2 (0-2) /hpf Urine WBC 51-100 H (0-3) /hpf Ur Squamous Epith Cells None seen (Few) /hpf Urine Bacteria 1+ H /hpf Urine Casts 0-2 Imaging Data Attestation: I personally reviewed and interpreted this imaging study as follows: Radiologist's impression: STAT RAD CT pelvis: Stage IV sacral decubitus ulcer extends to the sacral bone. No drainable fluid collection or abscess. If there is concern for osteomyelitis, MRI of the pelvis is recommended. Select catheter terminates in the urinary bladder. Left lower quadrant colostomy. Lumbar fusion hardware L3-L5. Discharge Plan Discharge Clinical Impression: Decubitus ulcer of sacral region, unstageable, Adult failure to thrive UTI (urinary tract infection) Qualifiers: Urinary tract infection type: acute cystitis Hematuria presence: without hematuria Qualified Code(s): N30.00 - Acute cystitis without hematuria Patient Disposition: Still a Patient Condition: Stable Prescriptions: No Action ascorbic acid (vitamin C) 500 mg Tablet 500 mg PO DAILY Multiple Vitamin-Minerals Tablet 1 tablet PO DAILY zinc sulfate 50 mg zinc (220 mg) Tablet 50 mg PO DAILY cyclobenzaprine 10 mg tablet 10 mg PO TID atorvastatin 10 mg tablet 10 mg PO HS melatonin 3 mg Tablet 9 mg PO HS pantoprazole 40 mg tablet,delayed release (DR/EC) 40 mg PO DAILY docusate sodium [Colace] 100 mg Capsule 100 mg PO BID oxybutynin chloride 5 mg tablet 5 mg PO Q8H PRN (Reason: bph) ergocalciferol (vitamin D2) 1,000 unit Capsule 2,000 unit PO DAILY guaifenesin 400 mg Tablet 400 mg PO Q6H PRN (Reason: Congestion) acetaminophen [Tylenol] 325 mg Capsule 650 mg PO Q4H PRN (Reason: pain fever) Pro-Stat AWC 17-100 gram-kcal/30 mL Liquid 30 ea PO BID sennosides-docusate sodium 8.6-50 mg Capsule 1 tab-cap PO Q12H PRN (Reason: Constipation) triamcinolone acetonide 0.1 % cream 1 applic TOPICAL DAILY PRN (Reason: Rash) Qty: 15 0RF Rx Instructions: apply to eczema areas on BLE and head. oxycodone 10 mg Tablet 10 mg PO Q6H PRN (Reason: Pain (Scale Score 4-6)) Qty: 10 0RF alprazolam 0.5 mg tablet 0.25 mg PO BID paroxetine HCl 30 mg tablet 30 mg PO HS trazodone 150 mg tablet 150 mg PO HS tamsulosin 0.4 mg Capsule 0.4 mg PO QHS Qty: 30 0RF timolol maleate 0.5 % Drops 1 drp EACH EYE QAM Qty: 1 0RF pregabalin [Lyrica] 75 mg Capsule 150 mg PO TID Qty: 30 0RF Follow-up/Referrals: UNKNOWN,DOCTOR [Primary Care Provider] -
[2024-01-27] MEDS: PIPERACILLN/TAZ 3.375GM/NS50ML 3.375 GM/50 ML BAG IVPB ×4 (02:18→21:18)
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
[2024-01-27 03:20] LABS: Glucose Point of Care 104 mg/dl (65-105)
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
--- NOTE | 2024-01-27 05:57 | PC.NURSE ---
attempted to call report at this time.
[2024-01-27 05:59] VITALS: BP 104/53; PULSE 81; RESP 22; O2SAT 94
--- NOTE | 2024-01-27 06:28 | ADMGEN ---
This patient, Nura North, was admitted to [facility] Surg Room 326-01 at 0625. Patient/family oriented to hospital policies and general routines including ID bracelet, bed and alarms, visiting hours, pain management, procedures, bathroom and other care routines, personal items, smoking policy, room service/diet, and visiting hours. Information on how to activate the Rapid Response Team has been discussed. Patient/Family are encouraged to report perceived risks to care and to ask questions if they do not understand what they are told or what they should do.
[2024-01-27 06:53] VITALS: BP 113/60; PULSE 76; RESP 18; TEMP 36.8; O2SAT 96; BMI 38.5
[2024-01-27] MEDS: ACETAMINOPHEN 325 MG TABLET 650 MG PO ×2 (08:42→13:03)
[2024-01-27 09:02] LABS: Erythrocyte Sedimentation Rate 93 mm/hr (0-20)
[2024-01-27 09:35] LABS: Procalcitonin 0.1 ng/mL
[2024-01-27 10:47] VITALS: BMI 38.5
[2024-01-27 14:00] VITALS: BP 110/49; PULSE 81; RESP 20; TEMP 36.8; O2SAT 96
--- NOTE | 2024-01-27 14:41 | P.HP_ITS ---
H&P: HPI History of Present Illness Date/Time: 01/27/24 14:41 Chief Complaint: Sacral ulcer with pain Narrative: [age] year old male past medical history of chronic kidney disease, chronic pain syndrome, obesity, hypertension, strict of sleep apnea on CPAP peripheral neuropathy, functional paraplegia, decubitus ulcer, status post diverting colostomy who presented to the ER on account of worsening sacral pain. Patient noted he has sacral ulcer the past 1 year and half and has followed with surgeons in [facility] who recommended flap surgery at some point however he noted he never followed up with them as he returned to the rehab. he noted he has chronic pain since last year. On Wednesday he had wound vac placed which made the pain worse and has never improved thus prompting presentation to the ER for proper eval and care. denies any chest pain, SOB, fever, vomiting, abd pain or vomiting. noted he is wheelchair bound. ER eval notable for vital signs stable and wnl. labs creatinine 1.5, WBC 11.0, CT pelvis showed sacral decubitus ulcer extending down to the coccyx. The coccyx itself is largely destroyed, suspicious for probable chronic osteomyelitis. Patient is started Zosyn and Vanc. Review of Systems Review of Systems: All other systems were reviewed and negative except as noted in the HPI above PMFSH Past Medical History Medical History Alcohol abuse Chronic kidney disease Chronic pain syndrome Depression with anxiety Gout History of GI bleed History of meningitis Hydronephrosis Hyperlipidemia Hypertension Legally blind Left eye YOSEPH on CPAP Peripheral neuropathy Urinary retention Surgical History Surgical History H/O cataract extraction H/O hand surgery H/O inguinal hernia repair H/O Spinal surgery L3 through L5 laminectomy with fusion History of tonsillectomy Family History Family History Mother Patient's mother is in good health Father Patient's father is Congestive heart failure Acute myocardial infarction Hypertension Grandparent Cerebrovascular accident Cancer Unknown No problems noted. Sibling Hypertension Sibling Hypertension Social History Social History Social History: The patient lives home alone. He is a former smoker. The p atient used to be heavy smoker smoking up to 2-3 packs of cigarettes for several years. The patient was known to drink 8-10 beers a day, states he drinks less than that now and not every day. He is retired and disabled in 1979. His mother Zita leonard is his salesperson new cars. Code status: DNR/DNI Smoking packs per day: 3 Smoking cigarettes per day: 60.0 Years smoked: 15 Smoking pack-years: 45.00 Smoking status: Former smoker Smokeless tobacco user: chewing tobacco Second hand tobacco smoke exposure: No Additional smoking assessment comments: CURRENT: SMOKELESS TOBACCO (01/2023) Alcohol intake: never Substance use: never Substance use type: does not use Other substance usage details: oxycodone Last use: t-1 Do You Feel Safe in your Home?: Yes Lack of Transportation: No Lack of Food: Never True Current Housing: I Have Housing Concerned About Future Housing: No Difficulty Paying Gas/Electric Bills: No Difficulty Paying for Meds: No Currently Unemployed: No Education: High School Diploma/GED Difficulty w/ Childcare or Family Care: No Occupation/Education: retired Additional occupation/education comments: Retired [employer] Gender identity (if verbalized by the patient): Male Spiritual care concerns: No Meds Home Medications and Allergies Home Medications Medication Instructions Recorded Confirmed Type paroxetine HCl 30 mg tablet 30 mg PO HS 09/15/22 01/27/24 History trazodone 150 mg tablet 50 mg PO HS 09/15/22 01/27/24 History timolol maleate 0.5 % eye drops 1 drp EACH EYE QAM #1 mL 12/29/22 01/27/24 Rx multivitamin with minerals 1 tablet PO DAILY 04/14/23 01/27/24 History (Multiple Vitamin-Minerals tablet) acetaminophen 325 mg capsule 650 mg PO Q4H PRN pain fever 09/27/23 01/27/24 Hist ory (Tylenol) triamcinolone acetonide 0.1 % 1 applic topical DAILY PRN Rash 09/29/23 01/27/24 Rx topical cream #15 grams alprazolam 0.5 mg tablet 0.25 mg PO BID 07/21/24 10/31/24 History pregabalin 75 mg capsule (Lyrica) 150 mg PO BID 01/27/24 01/27/24 History Allergies Allergy/AdvReac Type Severity Reaction Status Date / Time allopurinol Allergy Unknown Rash Verified 10/17/23 14:41 carbamazepine Allergy Unknown Rash Verified 10/17/23 14:41 cyclobenzaprine Allergy Unknown Rash Verified 10/17/23 14:41 diclofenac Allergy Unknown Rash Verified 10/17/23 14:41 adhesive tape Allergy Rash Verified 10/17/23 14:41 Vital Signs Vital Signs - 24 hr 01/26/24 18:30 01/27/24 05:59 01/27/24 06:53 Temperature 97.6 F 98.2 F Pulse Rate 80 81 76 Respiratory Rate 18 22 H 18 Blood Pressure 117/61 104/53 L 113/60 Pulse Oximetry 98 94 96 Oxygen Delivery Room Air 01/27/24 08:38 Temperature Pulse Rate Respiratory Rate Blood Pressure Pulse Oximetry Oxygen Delivery Room Air Exam Narrative: General: alert and comfortable Eyes: EOMI, PERRLA ENNT External ears normal, Neck is supple, no masses, Respiratory systems: Clear to auscultation Cardiovascular S1, S2, normal rhythm, no murmur, rub, or gallop; no thrill or palpable murmurs on palpation. Gastrointestinal: soft, non-tender, and non-distended abdomen with no masses; BS present Skin: sacral ulcer looks clean and dry and bone was palpated witha poke Musculoskeletal: no abnormality and no tenderness, normal ROM Neurologic: Alert and oriented x3, non focal Mental Status Exam: normal affect H&P: Results Labs Labs: Short CBC 01/27/24 Range/Units 00:14 WBC 11.0 H (4.5-10.0) K/mm3 Hgb 13.1 L (14.0-18.0) g/dL Hct 41.5 L (42.0-52.0) % Plt Count 218 (150-375) k/mm3 BMP 01/27/24 00:14 Sodium 143 Potassium 3.8 Chloride 104 Carbon Dioxide 30 BUN 32 H D Creatinine 1.50 H Glucose 100 Calcium 9.3 Liver Function 01/27/24 Range/Units 00:14 Total Bilirubin 0.6 (0.2-1.3) mg/dL AST 23 (17-59) U/L ALT 20 (6-50) U/L Alkaline Phosphatase 100 (38-126) U/L Albumin 4.2 (3.5-5.1) g/dL Urine 01/27/24 Range/Units 00:14 Urine Color Yellow (Yellow) Urine Appearance Clear (Clear) Urine pH 5.5 (5.0-9.0) Ur Specific [place] 1.011 (1.001-1.035) Urine Protein 1+ H (Negative) mg/dL Urine Glucose (UA) Negative (Negative) mg/dL Assessment and Plan Assessment and plan (1) Decubitus ulcer: Code(s): L89.90 - Pressure ulcer of unspecified site, unspecified stage Status: Acute (2) Sacral decubitus ulcer: Code(s): L89.159 - Pressure ulcer of sacral region, unspecified stage Status: Acute Assessment and Plan: Sacral ulcer with osteomyelitis presented with worsening pain CT Pelvis showed Chronic osteomyelitis Wound care following Blood culture, and Zosyn and Vancomycin Gen surgery consulted Continue PRN pain control CKD stable, cr 1.5 HTN titrate home meds with clinical course YOSEPH on CPAP continue CPAP Paraplegia wheelchair bound DVT prophyalxis on Sq lovenox Hospitalist MIPS Advance Care Plan I have confirmed that the patient's Advanced Care Plan is present, code status is documented, or surrogate decision maker is listed in patient medical record.: Yes Medication Reconciliation I have utilized all available resources to obtain, update and review the patients current medications (includes all prescriptions, OTC, herbals, cannabis, and nutritional supplements).: Yes
[2024-01-27] MEDS: VANCOMYCIN 1,500 MG/NS 500 ML 1,500 MG/500 ML BAG 250 MG IVPB (15:58)
--- NOTE | 2024-01-27 16:04 | P.CONGS_ITS ---
Assessment and Plan Assessment and plan (1) Sacral decubitus ulcer: Code(s): L89.159 - Pressure ulcer of sacral region, unspecified stage Status: Acute Assessment and Plan: The patient has a chronic stage IV sacral decubitus ulcer that appears to be healing well. The findings on his pelvis CT are all chronic. There are no signs of infection in his sacral wound and no necrotic tissue that would require surgical debridement. We would recommend to stop Dakin's dressing changes and switch to silver gel dressing changes. The patient wishes to switch wound clinics as he had a hard time tolerating the drive to his previous wound clinic. We will set him up to follow up in the Wound Clinic with Dr. Colmenares in 2 weeks. It is okay to discharge the patient from a surgical standpoint when his pain is controlled. (2) Colostomy care: Code(s): Z43.3 - Encounter for attention to colostomy Status: Acute Assessment and Plan: Patient with a diverting colostomy that is functioning well. (3) Chronic kidney disease, stage 3: Code(s): N18.30 - Chronic kidney disease, stage 3 unspecified Status: Chronic (4) Chronic pain syndrome: Code(s): G89.4 - Chronic pain syndrome Status: Chronic Plan I have discussed the patient's case and plan of care with Dr. Colmenares. Thank you for allowing us to see the patient in consultation. History of Present Illness Consult details Consult date: 01/27/24 Reason for consult: other (Sacral decubitus ulcer with osteomyelitis) Requesting physician: Toyin Ocampo MD Narrative: This is a 63-year-old man with past medical history of chronic kidney disease, YOSEPH, peripheral neuropathy, chronic pain, peripheral neuropathy, and chronic sacral decubitus ulcer, who is bed ridden for the past year and a half. Previously he was independent, but began having hip pain and eventually went to rehab for physical therapy, which has progressed to the point that he is now bed ridden. The patient lives at home alone, but his mother comes by twice daily to help care for his wounds and provide him meals. On a typical day, he does not leave his bed. He is able to get himself to a wheelchair, but only does this when he absolutely has to goes to an appointment. In March of 2023, he was found to have a large, extensive stage IV sacral decubitus ulcer due to his immobility. He was treated for osteomyelitis. He has had multiple surgical debridements here at [facility], as well as graft placements, and eventually was again hospitalized at [facility] in the past few months where he required surgical debridement again. His wound extends all the way to the anal verge and he had a diverting colostomy in March of 2023. Over the past few months, his mother has been taking care of his sacral wound with Dakin's dressing changes. He was going to wound clinic in [place]. He eventually had a wound VAC ordered and home health apply the wound VAC on Wednesday. He reports a significant amount of pain following the wound VAC placement. The pain continued and he eventually insisted to be removed the following evening. He has been in an out of at least 4 long-term facilities. He will check himself out AMA. He reports having chronic pain related to the sacral ulcer and has been taking Tylenol. He had a significant increase in the pain following wound VAC placement, which is eventually what led him to the ED last night. Vital signs were stable in the ER. White blood cell count [id number]. CT scan of the pelvis showed sacral decubitus ulcer extending down to the coccyx that is largely destroyed, and suspicious for probable chronic osteomyelitis. He was admitted to the hospitalist service. He has been started on IV antibiotics. Wound care was consulted. They recommended silver gel dressing changes. He is now seen with his mother at the bedside. Review of Systems Review of Systems: All systems reviewed & are unremarkable except as noted in HPI and below PMFSH Past Medical History Medical History Alcohol abuse Chronic kidney disease Chronic pain syndrome Depression with anxiety Gout History of GI bleed History of meningitis Hydronephrosis Hyperlipidemia Hypertension Legally blind Left eye YOSEPH on CPAP Peripheral neuropathy Urinary retention Surgical History Surgical History H/O cataract extraction H/O hand surgery H/O inguinal hernia repair H/O Spinal surgery L3 through L5 laminectomy with fusion History of tonsillectomy Family History Family History Mother Patient's mother is in good health Father Patient's father is Congestive heart failure Acute myocardial infarction Hypertension Grandparent Cerebrovascular accident Cancer Unknown No problems noted. Sibling Hypertension Sibling Hypertension Social History Social History Social History: The patient lives home alone. He is a former smoker. The patient used to be heavy smoker smoking up to 2-3 packs of cigarettes for several years. The patient was known to drink 8-10 beers a day, states he drinks less than that now and not every day. He is retired and disabled in 1979. His mother Zita leonard is his supervisor contact lens. Code status: DNR/DNI Smoking packs per day: 3 Smoking cigarettes per day: 60.0 Years smoked: 15 Smoking pack-years: 45.00 Smoking status: Former smoker Smokeless tobacco user: chewing tobacco Second hand tobacco smoke exposure: No Additional smoking assessment comments: CURRENT: SMOKELESS TOBACCO (01/2023) Alcohol intake: never Substance use: never Substance use type: does not use Other substance usage details: oxycodone Last use: t-1 Do You Feel Safe in your Home?: Yes Lack of Transportation: No Lack of Food: Never True Current Housing: I Have Housing Concerned About Future Housing: No Difficulty Paying Gas/Electric Bills: No Difficulty Paying for Meds: No Currently Unemployed: No Education: High School Diploma/GED Difficulty w/ Childcare or Family Care: No Occupation/Education: retired Additional occupation/education comments: Retired [employer] Gender identity (if verbalized by the patient): Male Spiritual care concerns: No Meds Home Medications and Allergies Home Medications Medication Instructions Recorded Confirmed Type paroxetine HCl 30 mg tablet 30 mg PO HS 09/15/22 01/27/24 History trazodone 150 mg tablet 50 mg PO HS 09/15/22 01/27/24 History timolol maleate 0.5 % eye drops 1 drp EACH EYE QAM #1 mL 12/29/22 01/27/24 Rx multivitamin with minerals 1 tablet PO DAILY 04/14/23 01/27/24 History (Multiple Vitamin-Minerals tablet) acetaminophen 325 mg capsule 650 mg PO Q4H PRN pain fever 09/27/23 01/27/24 History (Tylenol) triamcinolone acetonide 0.1 % 1 applic topical DAILY PRN Rash 09/29/23 01/27/24 Rx topical cream #15 grams alprazolam 0.5 mg tablet 0.25 mg PO BID 10/17/23 01/27/24 History pregabalin 75 mg capsule (Lyrica) 150 mg PO BID 01/27/24 01/27/24 History Allergies Allergy/AdvReac Type Severity Reaction Status Date / Time allopurinol Allergy Unknown Rash Verified 10/17/23 14:41 carbamazepine Allergy Unknown Rash Verified 10/17/23 14:41 cyclobenzaprine Allergy Unknown Rash Verified 10/17/23 14:41 diclofenac Allergy Unknown Rash Verified 10/17/23 14:41 adhesive tape Allergy Rash Verified 10/17/23 14:41 Vital Signs Vital Signs - 24 hr 01/26/24 18:30 01/27/24 05:59 01/27/24 06:53 Temperature 97.6 F 98.2 F Pulse Rate 80 81 76 Respiratory Rate 18 22 H 18 Blood Pressure 117/61 104/53 L 113/60 Pulse Oximetry 98 94 96 Oxygen Delivery Room Air 01/27/24 08:38 01/27/24 14:00 Temperature 98.2 F Pulse Rate 81 Respiratory Rate 20 Blood Pressure 110/49 L Pulse Oximetry 96 Oxygen Delivery Room Air Exam Const: General: comfortable and no acute distress Nutritional Appearance: obese Orientation/consciousness: patient oriented x3 HENMT: Head: normocephalic and atraumatic Ears: hearing grossly normal bilaterally Mouth: Yes moist mucous membranes Eyes: General: appearance normal, both eyes and all related structures Pupils: Equal, round and reactive pupils present Neck: Neck: normal visual inspection and full ROM Resp: Effort & Inspection: no respiratory distress Auscultation: clear to auscultation bilaterally Cardio: Rate: regular rate Rhythm: regular rhythm Heart sounds: S1 normal heart sound present and S2 normal heart sound present Peripheral pulses: Peripheral pulses 2+ throughout GI: Inspection: non-distended, obesity and other (colostomy functioning well with stool in bag) GI Palp: Yes Soft to palpation, No Tenderness to palpation present (GI), No Guarding due to palpation present (GI) and No Rebound tenderness present Percussion: Yes normal to percussion Auscultation: normal bowel sounds Urinary Catheter: Urinary Catheter: patent and draining Skin: General skin exam: normal color Other: Stage IV sacral decubitus ulcer with the entire wound bed 100% pink and healthy. No purulent drainage, no necrotic tissue, no odor. There is a tiny 1-2 cm area at the base of the wound likely overlying either the inferior aspect of the sacrum or coccyx that there is bone exposed. There is also a 3 x 4 cm area on the posterior scalp with mild swelling and erythema and a small 0.5 cm open wound with serosanguineous drainage. No foul odor, no purulent drainage, no fluctuance. Neuro: General: patient oriented x3, moves all extremities and no focal motor deficits Cranial nerves: Yes Equal, round and reactive pupils present Speech: normal speech Extrem: General: normal to inspection and no edema Psych: Mental Status: mental status grossly normal Attitude: cooperative Insight: Good insight present (Psych) Judgement: Good judgement present (Psych) Results Labs 01/27/24 00:14 01/27/24 00:14 Labs: Abnormal lab results 01/27/24 01/27/24 Range/Units 00:14 06:40 WBC 11.0 H (4.5-10.0) K/mm3 Hgb 13.1 L (14.0-18.0) g/dL Hct 41.5 L (42.0-52.0) % MCHC 31.6 L (32-36) g/dl RDW 18.6 H (11.5-14.5) % Immature Gran % (Auto) 0.8 H (0-0.5) % Abs Immat Gran (auto) 0.09 H (0.00-0.031) K/mm3 Absolute Neuts (auto) 7.3 H (1.3-6.7) K/mm3 ESR 93 H (0-20) mm/hr BUN 32 H D (9-20) mg/dL Creatinine 1.50 H (0.7-1.3) mg/dL Estimated GFR 47 L (59 - ) C-Reactive Protein 6.7 H (<1.0) mg/dL Urine Protein 1+ H (Negative) mg/dL Urine Nitrate Positive H (Negative) Leukocyte Esterase Rfl 2+ H (Negative) ADRIANNE/UL Urine WBC 51-100 H (0-3) /hpf Urine Bacteria 1+ H /hpf Diabetes panel 01/27/24 Range/Units 00:14 Sodium 143 (137-145) mmol/L Potassium 3.8 (3.4-5.0) mmol/L Chloride 104 (98-107) mmol/L Carbon Dioxide 30 (22-30) mmol/L BUN 32 H D (9-20) mg/dL Creatinine 1.50 H (0.7-1.3) mg/dL Glucose 100 (65-110) mg/dL Calcium 9.3 (8.4-10.2) mg/dL AST 23 (17-59) U/L ALT 20 (6-50) U/L Alkaline Phosphatase 100 (38-126) U/L Total Protein 8.0 (6.3-8.2) g/dL Albumin 4.2 (3.5-5.1) g/dL Calcium panel 01/27/24 Range/Units 00:14 Calcium 9.3 (8.4-10.2) mg/dL Albumin 4.2 (3.5-5.1) g/dL Pituitary panel 01/27/24 Range/Units 00:14 Sodium 143 (137-145) mmol/L Potassium 3.8 (3.4-5.0) mmol/L Chloride 104 (98-107) mmol/L Carbon Dioxide 30 (22-30) mmol/L BUN 32 H D (9-20) mg/dL Creatinine 1.50 H (0.7-1.3) mg/dL Glucose 100 (65-110) mg/dL Calcium 9.3 (8.4-10.2) mg/dL Adrenal panel 01/27/24 Range/Units 00:14 Sodium 143 (137-145) mmol/L Potassium 3.8 (3.4-5.0) mmol/L Chloride 104 (98-107) mmol/L Carbon Dioxide 30 (22-30) mmol/L BUN 32 H D (9-20) mg/dL Creatinine 1.50 H (0.7-1.3) mg/dL Glucose 100 (65-110) mg/dL Calcium 9.3 (8.4-10.2) mg/dL Total Bilirubin 0.6 (0.2-1.3) mg/dL AST 23 (17-59) U/L ALT 20 (6-50) U/L Alkaline Phosphatase 100 (38-126) U/L Total Protein 8.0 (6.3-8.2) g/dL Albumin 4.2 (3.5-5.1) g/dL All other labs normal. Imaging Additional studies: ITS Impressions Pelvis CT 01/27/24 05:43 Impression: Midline sacral decubitus ulcer extending down to the coccyx. The coccyx itself is largely destroyed, suspicious for probable chronic osteomyelitis. Sacrum otherwise appears to be intact. Degenerative changes, as above. Questionable hyperdense material within the urinary bladder. Correlate for hematuria.
[2024-01-27 18:32] VITALS: BP 128/74; PULSE 76; RESP 16; TEMP 36.3; O2SAT 98
[2024-01-27] MEDS: traZODone HCL 50 MG TABLET PO (21:19)
[2024-01-27] MEDS: PREGABALIN (*CRX) 75 MG CAPSULE 150 MG PO (21:20)
[2024-01-27] MEDS: ALPRAZolam (*CRX) 0.25 MG TABLET PO (21:20)
[2024-01-27] MEDS: PARoxetine 10 MG TABLET 30 MG PO (21:20)
[2024-01-27] MEDS: HYDROcodone/acetaminophen (*CRX) 10-325 MG TABLET 1 TAB PO (21:28)
[2024-01-27 21:34] VITALS: BP 111/51; PULSE 75; RESP 18; TEMP 36.2; O2SAT 98
--- NOTE | 2024-01-28 | ECHO_ITS ---
Patient Info Name: Nura North Age: 63 years : 1960 Gender: Male Ht: 70 in Wt: 240 lbs BSA: 2.36 m2 HR: 64 bpm BP: 111 / 56 mmHg Heart Rhythm: Sinus Rhythm Technical Quality: Poor Exam Date: 01/28/2024 1:18 PM Exam Location: Echo Lab Patient Status: Inpatient Admit Date: 01/27/2024 Staff Ordering Physician: Toyin Ocampo MD District Sales Leader: Kaveh Barnett RDCS Attending Provider: Bethany Fernandez DO Exam Type: CA echo doppler color flow Study Info Indications - staph bacteremia Complete two-dimensional, color flow and Doppler transthoracic echocardiogram is performed with contrast to opacify the left ventricle and to improve the deliniation of the left ventricle endocardial borders. Reason for Poor Study: poor echocardiographic windows Summary 1. Technically suboptimal study due to poor sonographic images. 2. Definity contrast administered improved wall motion interpretation. 3. Left ventricular chamber dimension is normal. 4. Left ventricular systolic function is normal, estimated at 65-70%. 5. The left ventricular diastolic function is grade I diastolic dysfunction. 6. E/e' 13 is mildly elevated. 7. The aortic valve is not well visualized. 8. The tricuspid valve leaflets are not well visualized. 9. No pulmonary hypertension, estimated pulmonary arterial systolic pressure is 14 mmHg. 10. The pulmonic valve is not well visualized. Left Ventricle Definity contrast administered improved wall motion interpretation. E/e' 13 is mildly elevated. Technically suboptimal study due to poor sonographic images. Left ventricular chamber dimension is normal. Left ventricular systolic function is normal, estimated at 65-70%. The left ventricular diastolic function is grade I diastolic dysfunction. Right Ventricle Right ventricular systolic function is normal and with normal TAPSE 3.6 cm. Right ventricular chamber dimension is normal. Left Atria Left atrial chamber dimension is normal. Right Atria Right atrial chamber dimension is normal. Aortic Valve There is no aortic valve stenosis based on valve area and gradients. The aortic valve is not well visualized. There is no aortic valve regurgitation. Cannot rule out aortic valve vegetation visualized. Pulmonic Valve The pulmonic valve is not well visualized. Cannot rule out pulmonic valve vegetation visualized. Mitral Valve There is no mitral valve stenosis. There is no mitral valve regurgitation. No mitral valve vegetation visualized. Tricuspid Valve The tricuspid valve leaflets are not well visualized. There is no tricuspid valve regurgitation. No pulmonary hypertension, estimated pulmonary arterial systolic pressure is 14 mmHg. Cannot rule out tricuspid valve vegetation visualized. Pericardium/Pleural There is no pericardial effusion. Inferior Vena Cava Normal inferior vena cava with >50% collapse upon inspiration consistent with normal right atrial pressure, 5 mmHg. Aorta The aortic root size at the sinus of Valsalva is normal. Left Ventricular Outflow Tract Name Value Normal LVOT 2D LVOT Diameter 2.1 cm LVOT Doppler LVOT Peak Gradient 4 mmHg LVOT Mean Gradient 2 mmHg LVOT VTI 21 cm LVOT VTI/AV VTI Ratio 1.0 LVOT Stroke Volume 72 ml LVOT CO 5.7 l/min LVOT CI 2.4 l/min/m2 Mitral Valve Name Value Normal MV Doppler MV Decel [place] 590 cm/s2 MV PHT 52 ms MV Area (PHT) 4.3 cm2 4.0-5.0 MV Diastolic Function MV E Peak Velocity 105 cm/s MV A Peak Velocity 110 cm/s MV E/A 1.0 MV Decel Time 178 ms MV Annular TDI MV E/e' (Septal) 15.1 <=8.0 MV E/e' (Lateral) 12.3 <=8.0 MV E/e' (Average) 13.7 Tricuspid Valve Name Value Normal TV Regurgitation Doppler TR Peak Velocity 147 cm/s TR Peak Gradient 1 mmHg Estimated PAP/RSVP RA Pressure 5 mmHg <=5 PA Systolic Pressure 14 mmHg <36 RV Systolic Pressure 14 mmHg <36 Aortic Valve Name Value Normal AV Doppler AV Peak Velocity 114 cm/s AV Peak Gradient 5 mmHg AV Mean Gradient 3 mmHg AV VTI 21 cm AV Area (Cont Eq VTI) 3.4 cm2 >=3.0 AV Area (Cont Eq Roberto) 2.9 cm2 AV Regurgitation 2D LVOT Area 3.4 cm2 Ventricles Name Value Normal LV Dimensions 2D/MM IVS Diastolic Thickness (2D) 1.1 cm 0.6-1.0 LVID Diastole (2D) 4.6 cm 4.2-5.8 LVIW Diastolic Thickness (2D) 1.1 cm 0.6-1.0 LVID Systole (2D) 3.1 cm 2.5-4.0 LVOT Diameter 2.1 cm LV Mass (2D Cubed) 184.53 g 88.00-224.00 LV Mass Index (2D Cubed) 78 g/m2 49-115 Relative Wall Thickness (2D) 0.48 LV Fractional Shortening/Ejection Fraction 2D/MM LV Fractional Shortening (2D) 33 % 25-43 LV EF (2D Teicholz) 62 % 52-72 LV Diastolic Volume (4C MOD) 108 ml LV EF (4C MOD) 72 % LV Diastolic Volume (2C MOD) 132 ml LV EF (2C MOD) 75 % LV Diastolic Volume (BP MOD) 120 ml 62-150 LV Diastolic Volume Index (BP MOD) 51 ml/m2 34-74 LV Systolic Volume (BP MOD) 32 ml 21-61 LV Systolic Volume Index (BP MOD) 14 ml/m2 11-31 LV EF (BP MOD) 73 % 52-72 LV Diastolic Length (4C) 8.6 cm LV Systolic Length (4C) 6.9 cm LV Stroke Volume (4C MOD) 78 ml Atria Name Value Normal LA Dimensions LA Volume (4C A-L) 42 ml LA Volume (BP A-L) 46 ml RA Dimensions RA Area (4C) 13.9 cm2 <=18.0 Report Signatures
[2024-01-28] MEDS: PIPERACILLN/TAZ 3.375GM/NS50ML 3.375 GM/50 ML BAG IVPB ×2 (02:49→09:43)
[2024-01-28] MEDS: HYDROcodone/acetaminophen (*CRX) 10-325 MG TABLET 1 TAB PO ×2 (02:58→14:48)
[2024-01-28] MEDS: MORPHINE SULFATE (*CRX) 4 MG/ML INJ IV PUSH ×3 (04:40→18:16)
[2024-01-28 06:00] VITALS: BP 111/56; PULSE 64; RESP 14; TEMP 37.2; O2SAT 98
[2024-01-28 06:47] LABS: Hematocrit 36.2 % (42.0-52.0); Hemoglobin 10.7 g/dL (14.0-18.0); Immature Platelet Fraction Pct 2.7 % (0.9-11.2); Mean Corpuscular HGB Conc 29.6 g/dl (32-36); Mean Corpuscular Volume 94.8 fl (80-100); Mean Platelet Volume 10.9 fl (7.4-10.4); Platelet Count Result 147 k/mm3 (150-375); Red Blood Count 3.82 M/mm3 (4.6-6.20); Red Cell Distribution Width 18.8 % (11.5-14.5)
[2024-01-28 07:00] LABS: Estimated CRCL calculation 54 ml/min; Estimated Glomerular Filt Rate 44
[2024-01-28 08:33] LABS: Band Neutrophils Percent 2 % (0-6); Basophils Percent Manual 0 % (0-1); Eosinophils Absolute Manual 0.16 K/mm3 (0.02-0.50); Eosinophils Percent Manual 2 % (0-4); Lymphocytes Absolute Manual 1.76 K/mm3 (1.1-4.5); Lymphocytes Percent Manual 22 % (18-44); Monocytes Absolute Manual 0.64 K/mm3 (0.1-0.90); Monocytes Percent Manual 8 % (3-9); Neutrophils Absolute Manual 5.44 K/mm3 (1.3-6.7); Neutrophils Percent Manual 66 % (46-73); Platelet Estimate Adequate (Adequate); Total Cells Counted 100
[2024-01-28 08:35] LABS: Anisocytosis 1+
[2024-01-28 08:36] LABS: Schistocytes None Seen
[2024-01-28] MEDS: PREGABALIN (*CRX) 75 MG CAPSULE 150 MG PO ×2 (09:41→17:03)
[2024-01-28] MEDS: THERAPEUTIC MULTIVITAMINS/MINERALS TAB (*BKC) 1 TABLET PO (09:41)
--- NOTE | 2024-01-28 09:53 | PCOTNOTE ---
Attempted to see patient for OT evaluation. Patient reporting he is bedridden at home and wears hospital gown at home at all times. He is adamantly declining therapy stating therapy makes all of his pain worse. Contacting provider regarding appropriateness of OT/PT orders.
--- NOTE | 2024-01-28 10:00 | PCPTNOTE ---
Pt refusing to participate in skilled therapy. RN aware. Will follow.
--- NOTE | 2024-01-28 10:24 | PC.NURSE ---
Pt refused scheduled morning dose of alprazolam 0.25mg this AM, reports he takes this before bed; pt also refused ordered dose of lovenox 40mg; this RN educated pt about indication of lovenox, pt stated I don't need it, I've been bed-ridden for over a year.
[2024-01-28] MEDS: TIMOLOL MALEATE 0.5% OP SOLN 5 ML BOTTLE 1 DROP EACH EYE (10:35)
--- NOTE | 2024-01-28 12:58 | PCOTNOTE ---
Spoke with ordering provider, Dr. Ocampo, who reqeusts therapy continue to attempt to work with the patient. Will continue to attempt.
[2024-01-28] MEDS: PERFLUTREN LIPID MICROSPHERES 1.5 ML VIAL DILUTED TO 10 ML TOTAL VOLUME IV PUSH (13:35)
--- NOTE | 2024-01-28 13:59 | IVDEFINITY ---
Prior to administration of IV Definity the patient was educated on the risks and benefits of the imaging enhancing agent including potential adverse side effects. The patient verbalized understanding. Allergies were verified. No exclusion criteria were identified and at least one of the following inclusion criteria were met: 1) physician request, 2) patient technically difficult to image (per the [employer] guidelines of two or more segments not discernable within the apical view), or 3) questionable left ventricular function. ?
--- NOTE | 2024-01-28 14:35 | PM.IMPN ---
Progress Note: A&P Assessment and Plan (1) Decubitus ulcer: Code(s): L89.90 - Pressure ulcer of unspecified site, unspecified stage Status: Acute (2) Sacral decubitus ulcer: Code(s): L89.159 - Pressure ulcer of sacral region, unspecified stage Status: Acute Assessment and Plan: Staph bacteremia Blood culture positive for staph aureus Continue Vancomycin likely from Chronic osteomyelitis ECHO pending patient accepted at [facility] will transfer once bed is availabl e Sacral ulcer with osteomyelitis presented with worsening pain CT Pelvis showed Chronic osteomyelitis Wound care following Blood culture, and Zosyn and Vancomycin Gen surgery evaluated and recommended wound care Continue PRN pain control awaiting transfer to [facility] CKD stable, cr 1.5 HTN titrate home meds with clinical course YOSEPH on CPAP continue CPAP Paraplegia wheelchair bound DVT prophyalxis on Sq lovenox Subjective Date/time seen: 01/28/24 14:35 Interval history: Comfortable at bedside Blood culture positive for staph aureus ECHO pending and patient pending transfer to [facility] Review of Systems Review of Systems: All other systems were reviewed and negative except as noted in the HPI above Exam Narrative: General: alert and comfortable Eyes: EOMI, PERRLA ENNT External ears normal, Neck is supple, no masses, Respiratory systems: Clear to auscultation Cardiovascular S1, S2, normal rhythm, no murmur, rub, or gallop; no thrill or palpable murmurs on palpation. Gastrointestinal: soft, non-tender, and non-distended abdomen with no masses; BS present Skin: sacral ulcer looks clean and dry and bone was palpated witha poke Musculoskeletal: no abnormality and no tenderness, normal ROM Neurologic: Alert and oriented x3, non focal Mental Status Exam: normal affect Objective Data Vital Signs Vital Signs: Vital Signs - 24 hr 01/27/24 18:32 01/27/24 21:34 01/27/24 20:00 Temperature 97.3 F L 97.2 F L Pulse Rate 76 75 Respiratory Rate 16 18 Blood Pressure 128/74 111/51 L Pulse Oximetry 98 98 Oxygen Delivery Room Air 01/28/24 06:00 01/28/24 09:40 Temperature 98.9 F Pulse Rate 64 Respiratory Rate 14 Blood Pressure 111/56 L Pulse Oximetry 98 Oxygen Delivery Room Air Intake/Output Intake/Output: Intake & Output 01/25/24 01/26/24 01/27/24 01/28/24 23:59 23:59 23:59 23:59 Intake Total 7118 196 Output Total 4981 8984 Balance -4529 -960 Meds/Results Medications: Active Medications Generic Name Dose Route Start Last Admin Trade Name Freq PRN Reason Stop Dose Admin Acetaminophen 650 mg 01/27/24 04:47 01/27/24 13:03 Acetaminophen 325 Mg Tablet PO 650 mg Q4H PRN Administration Mild Pain (1-3) or Fever Hydrocodone Bitart/Acetaminophen 1 tab 01/27/24 14:40 01/28/24 02:58 Hydrocodone/Acetaminophen (*Crx) 10-325 Mg Tablet PO 1 tab Q6H PRN Administration Pain Rated 7-10 Alprazolam 0.25 mg 01/27/24 20:25 01/28/24 09:42 Alprazolam (*Crx) 0.25 Mg Tablet PO Not Given BID ANNE Dextrose 12.5 gm 01/27/24 04:51 Dextrose 50% 25 Gm/50 Ml Syringe IV PUSH PRN PRN Hypoglycemia Protocol Enoxaparin Sodium 40 mg 01/28/24 09:00 01/28/24 10:02 Enoxaparin 40 Mg/0.4 Ml Syringe SUB-Q Not Given DAILY ANNE Glucagon 1 mg 01/27/24 04:51 Glucagon For Inj 1 Mg Vial IM PRN PRN Hypoglycemia Protocol Glucose 15 gm 01/27/24 04:51 Glucose Oral Gel 15 Gm Of Glucse In 37.5 Gm Tube PO PRN PRN Hypoglycemia Protocol Dextrose 1,000 mls @ 100 mls/hr 01/27/24 04:51 Dextrose 5% 1,000 Ml IVPB PRN PRN Hypoglycemia Protocol Vancomycin HCl 1,500 mg in 500 mls @ 250 mls/hr 01/27/24 16:00 01/27/24 17:58 Vancomycin 1,500 Mg/Ns 500 Ml IVPB Infused Q24H ANNE Infusion Morphine Sulfate 4 mg 01/27/24 13:32 01/28/24 10:03 Morphine Sulfate (*Crx) 4 Mg/Ml Inj IV PUSH 4 mg Q4H PRN Administration Pain Rated 7-10 Multivitamins/Calcium 1 tablet 01/28/24 09:00 01/28/24 09:41 Therapeutic Multivitamins/Minerals Tab (*Bkc) PO 1 tablet DAILY [facility] Administration Paroxetine HCl 30 mg 01/27/24 21:00 01/27/24 21:20 Paroxetine 10 Mg Tablet PO 30 mg HS ANNE Administration Pregabalin 150 mg 01/27/24 20:25 01/28/24 09:41 Pregabalin (*Crx) 75 Mg Capsule PO 150 mg BID ANNE Administration Timolol Maleate 1 drop 01/28/24 09:00 01/28/24 10:35 Timolol Maleate 0.5% Op Soln 5 Ml Bottle EACH EYE 1 drop QAM ANNE Administration Trazodone HCl 50 mg 01/27/24 21:00 01/27/24 21:19 Trazodone Hcl 50 Mg Tablet PO 50 mg HS ANNE Administration Triamcinolone Acetonide 1 applic 01/27/24 20:11 Triamcinolone Acet 0.1% Cream 15 Gm Tube TOPICAL DAILY PRN Rash Radiology Results: ITS Impressions Pelvis CT 01/27/24 05:43 Impression: Midline sacral decubitus ulcer extending down to the coccyx. The coccyx itself is largely destroyed, suspicious for probable chronic osteomyelitis. Sacrum otherwise appears to be intact. Degenerative changes, as above. Questionable hyperdense material within the urinary bladder. Correlate for hematuria. Labs Labs: Laboratory Results - last 24 hr 01/28/24 01/28/24 06:11 07:07 WBC 8.0 RBC 3.82 L Hgb 10.7 L Hct 36.2 L MCV 94.8 D MCH 28.0 MCHC 29.6 L RDW 18.8 H Plt Count 147 L MPV 10.9 H Immature Gran % (Auto) Not Reportable Neut % (Auto) Not Reportable Lymph % (Auto) Not Reportable [place] % (Auto) Not Reportable Eos % (Auto) Not Reportable Baso % (Auto) Not Reportable Lymph # (Auto) Not Reportable [place] # (Auto) Not Reportable Eos # (Auto) Not Reportable Baso # (Auto) Not Reportable Abs Immat Gran (auto) Not Reportable Absolute Neuts (auto) Not Reportable Absolute Nucleated RBC Not Reportable Total Counted 100 Neutrophils % (Manual) 66 Band Neutrophils % 2 Lymphocytes % (Manual) 22 Monocytes % (Manual) 8 Eosinophils % (Manual) 2 Basophils % (Manual) 0 Nucleated RBC % Not Reportable Abs Neuts (Manual) 5.44 Abs Lymphs (Manual) 1.76 Abs Monocytes (Manual) 0.64 Absolute Eos (Manual) 0.16 Abs Basophils (Manual) 0.00 Platelet Estimate Adequate % Immature Plt Fraction 2.7 Anisocytosis 1+ Schistocytes None seen Creatinine 1.60 H Estim Creat Clear Calc 54 Estimated GFR 44 L Lactic Acid 1.0
[2024-01-28 15:41] VITALS: BP 128/56; PULSE 72; RESP 22; TEMP 36.6; O2SAT 100
[2024-01-28] MEDS: VANCOMYCIN 1,500 MG/NS 500 ML 1,500 MG/500 ML BAG 250 MG IVPB (17:02)
[2024-01-28] MEDS: SACCHAROMYCES BOULARDII 250 MG CAPSULE PO (18:16)
[2024-01-28] MEDS: ALPRAZolam (*CRX) 0.25 MG TABLET PO (20:57)
[2024-01-28] MEDS: PARoxetine 10 MG TABLET 30 MG PO (20:57)
[2024-01-28] MEDS: traZODone HCL 50 MG TABLET PO (20:57)
[2024-01-28 21:53] VITALS: BP 116/48; PULSE 82; RESP 22; TEMP 37.2; O2SAT 98
[2024-01-29] MEDS: HYDROcodone/acetaminophen (*CRX) 10-325 MG TABLET 1 TAB PO ×4 (00:12→20:12)
[2024-01-29 06:00] VITALS: BP 118/55; PULSE 67; RESP 18; TEMP 37.1; O2SAT 97
[2024-01-29 07:31] LABS: Basophils Percent Auto 0.1 % (0.2-1.2); Eosinophils Absolute Auto 0.4 K/mm3 (0-0.3); Eosinophils Percent Auto 5.5 % (0-4.4); Hematocrit 35.3 % (42.0-52.0); Immature Granulocyte Absolute 0.03 K/mm3 (0.00-0.031); Immature Granulocyte Percent A 0.4 % (0-0.5); Lymphocytes Absolute Auto 1.59 K/mm3 (0.9-3.2); Lymphocytes Percent Auto 19.9 % (18.3-44.2); Mean Corpuscular HGB Conc 31.2 g/dl (32-36); Mean Corpuscular Hemoglobin 27.9 pg (26-34); Mean Corpuscular Volume 89.6 fl (80-100); Mean Platelet Volume 10.1 fl (7.4-10.4); Monocytes Absolute Auto 0.6 K/mm3 (0.1-0.6); Monocytes Percent Auto 7.6 % (2.6-8.5); Neutrophils Absolute Auto 5.3 K/mm3 (1.3-6.7); Neutrophils Percent Auto 66.5 % (45.5-73.1); Platelet Count Result 196 k/mm3 (150-375); Red Blood Count 3.94 M/mm3 (4.6-6.20); Red Cell Distribution Width 17.9 % (11.5-14.5)
[2024-01-29 08:00] VITALS: PULSE 65; RESP 18; O2SAT 98
[2024-01-29 08:09] LABS: Alanine Aminotransferase 13 U/L (6-50); Albumin Level 3.5 g/dL (3.5-5.1); Alkaline Phosphatase 86 U/L (38-126); Anion Gap 6 mmol/L (4-12); Aspartate Amino Transferase 17 U/L (17-59); Bilirubin,Total 0.6 mg/dL (0.2-1.3); Blood Urea Nitrogen 22 mg/dL (9-20); Calcium 8.9 mg/dL (8.4-10.2); Carbon Dioxide 31 mmol/L (22-30); Chloride 103 mmol/L (98-107); Estimated CRCL calculation 57 ml/min; Estimated Glomerular Filt Rate 47; Glucose 91 mg/dL (65-110); Magnesium 1.8 mg/dL (1.6-2.3); Potassium 3.9 mmol/L (3.4-5.0); Sodium 140 mmol/L (137-145)
[2024-01-29] MEDS: SACCHAROMYCES BOULARDII 250 MG CAPSULE PO ×2 (09:02→16:38)
[2024-01-29] MEDS: THERAPEUTIC MULTIVITAMINS/MINERALS TAB (*BKC) 1 TABLET PO (09:02)
[2024-01-29] MEDS: TIMOLOL MALEATE 0.5% OP SOLN 5 ML BOTTLE 1 DROP EACH EYE (09:06)
--- NOTE | 2024-01-29 10:39 | PC.NURSE ---
pt refused AM doses of alprazolam and pregabalin this morning; pt reports he takes both doses HS at home to help him sleep. Attempted to notify provider @[phone] 01/29/24; will try again.
--- NOTE | 2024-01-29 10:42 | PCPTNOTE ---
pt refused PT evaluation-stated he did not want any therapy ;
--- NOTE | 2024-01-29 11:11 | PCOTNOTE ---
Attempted OT evaluation, patient refuses all therapy. Will follow.
--- NOTE | 2024-01-29 11:48 | P.PNIM_ITS ---
Progress Note: A&P Assessment and Plan (1) Decubitus ulcer: Code(s): L89.90 - Pressure ulcer of unspecified site, unspecified stage Status: Acute (2) Sacral decubitus ulcer: Code(s): L89.159 - Pressure ulcer of sacral region, unspecified stage Status: Acute Assessment and Plan: Staph bacteremia Blood culture positive for staph aureus Continue Vancomycin likely from Chronic osteomyelitis ECHO Normal EF weeds no focal abnormalities a. patient accepted at [facility] Awaiting transfer to [facility]. Sacral ulcer with osteomyelitis presented with worsening pain CT Pelvis showed Chronic osteomyelitis Wound care following Continue above care. Gen surgery evaluated and recommended wound care Continue PRN pain control awaiting transfer to [facility] CKD stable, cr 1.5 HTN titrate home meds with clinical course YOSEPH on CPAP continue CPAP Paraplegia wheelchair bound DVT prophylaxis on Sq lovenox Subjective Date/time seen: 01/29/24 11:48 Interval history: Comfortable at bedside Blood culture positive for MRSA echo EF 60-65%, no valvular abnormalities. Awaiting transfer to [facility]. Review of Systems Review of Systems: All other systems were reviewed and negative except as noted in the HPI above Exam Narrative: General: alert and comfortable Eyes: EOMI, PERRLA ENNT External ears normal, Neck is supple, no masses, Respiratory systems: Clear to auscultation Cardiovascular S1, S2, normal rhythm, no murmur, rub, or gallop; no thrill or palpable murmurs on palpation. Gastrointestinal: soft, non-tender, and non-distended abdomen with no masses; BS present Skin: sacral ulcer looks clean and dry and bone was palpated witha poke Musculoskeletal: no abnormality and no tenderness, normal ROM Neurologic: Alert and oriented x3, non focal Mental Status Exam: normal affect Objective Data Vital Signs Vital Signs: Vital Signs - 24 hr 01/28/24 15:41 01/28/24 21:53 01/28/24 20:00 Temperature 97.9 F 99.0 F Pulse Rate 72 82 Respiratory Rate 22 H 22 H Blood Pressure 128/56 L 116/48 L Pulse Oximetry 100 98 Oxygen Delivery Room Air 01/29/24 06:00 Temperature 98.7 F Pulse Rate 67 Respiratory Rate 18 Blood Pressure 118/55 L Pulse Oximetry 97 Oxygen Delivery Intake/Output Intake/Output: Intake & Output 10/01/27/24 01/28/24 01/29/24 23:59 23:59 23:59 23:59 Intake Total 1790 1700 2980 Output Total 3150 2850 2800 Balance -1360 -1150 180 Meds/Results Medications: Active Medications Generic Name Dose Route Start Last Admin Trade Name Freq PRN Reason Stop Dose Admin Acetaminophen 650 mg 01/27/24 04:47 01/27/24 13:03 Acetaminophen 325 Mg Tablet PO 650 mg Q4H PRN Administration Mild Pain (1-3) or Fever Hydrocodone Bitart/Acetaminophen 1 tab 01/27/24 14:40 01/29/24 06:38 Hydrocodone/Acetaminophen (*Crx) 10-325 Mg Tablet PO 1 tab Q6H PRN Administration Pain Rated 7-10 Alprazolam 0.25 mg 01/29/24 21:00 Alprazolam (*Crx) 0.25 Mg Tablet PO HS ANNE Dextrose 12.5 gm 01/27/24 04:51 Dextrose 50% 25 Gm/50 Ml Syringe IV PUSH PRN PRN Hypoglycemia Protocol Enoxaparin Sodium 40 mg 01/28/24 09:00 01/29/24 09:00 Enoxaparin 40 Mg/0.4 Ml Syringe SUB-Q Not Given DAILY ANNE Glucagon 1 mg 01/27/24 04:51 Glucagon For Inj 1 Mg Vial IM PRN PRN Hypoglycemia Protocol Glucose 15 gm 01/27/24 04:51 Glucose Oral Gel 15 Gm Of Glucse In 37.5 Gm Tube PO PRN PRN Hypoglycemia Protocol Dextrose 1,000 mls @ 100 mls/hr 01/27/24 04:51 Dextrose 5% 1,000 Ml IVPB PRN PRN Hypoglycemia Protocol Vancomycin HCl 1,500 mg in 500 mls @ 250 mls/hr 01/27/24 16:00 01/28/24 18:55 Vancomycin 1,500 Mg/Ns 500 Ml IVPB 250 mls/hr Q24H ANNE Infusion Morphine Sulfate 4 mg 01/27/24 13:32 01/28/24 18:16 Morphine Sulfate (*Crx) 4 Mg/Ml Inj IV PUSH 4 mg Q4H PRN Administration Pain Rated 7-10 Multivitamins/Calcium 1 tablet 01/28/24 09:00 01/29/24 09:02 Therapeutic Multivitamins/Minerals Tab (*Bkc) PO 1 tablet DAILY ANNE Administration Paroxetine HCl 30 mg 01/27/24 21:00 01/28/24 20:57 Paroxetine 10 Mg Tablet PO 30 mg HS ANNE Administration Pregabalin 150 mg 01/29/24 21:00 Pregabalin (*Crx) 75 Mg Capsule PO HS ANNE Saccharomyces Boulardii 250 mg 01/28/24 18:00 01/29/24 09:02 Saccharomyces Boulardii 250 Mg Capsule PO 250 mg BID ANNE Administration Timolol Maleate 1 drop 01/28/24 09:00 01/29/24 09:06 Timolol Maleate 0.5% Op Soln 5 Ml Bottle EACH EYE 1 drop QAM ANNE Administration Trazodone HCl 50 mg 01/27/24 21:00 01/28/24 20:57 Trazodone Hcl 50 Mg Tablet PO 50 mg HS ANNE Administration Triamcinolone Acetonide 1 applic 01/27/24 20:11 Triamcinolone Acet 0.1% Cream 15 Gm Tube TOPICAL DAILY PRN Rash Radiology Results: ITS Impressions Pelvis CT 01/27/24 05:43 Impression: Midline sacral decubitus ulcer extending down to the coccyx. The coccyx itself is largely destroyed, suspicious for probable chronic osteomyelitis. Sacrum otherwise appears to be intact. Degenerative changes, as above. Questionable hyperdense material within the urinary bladder. Correlate for hematuria. Labs Labs: Laboratory Results - last 24 hr 01/29/24 06:45 WBC 8.0 RBC 3.94 L Hgb 11.0 L Hct 35.3 L MCV 89.6 D MCH 27.9 MCHC 31.2 L RDW 17.9 H Plt Count 196 MPV 10.1 Immature Gran % (Auto) 0.4 Neut % (Auto) 66.5 Lymph % (Auto) 19.9 [place] % (Auto) 7.6 Eos % (Auto) 5.5 H Baso % (Auto) 0.1 L Lymph # (Auto) 1.59 [place] # (Auto) 0.6 Eos # (Auto) 0.4 H Baso # (Auto) 0.0 Abs Immat Gran (auto) 0.03 Absolute Neuts (auto) 5.3 Absolute Nucleated RBC 0.000 Nucleated RBC % 0.0 Sodium 140 Potassium 3.9 Chloride 103 Carbon Dioxide 31 H Anion Gap 6 BUN 22 H D Creatinine 1.50 H Estim Creat Clear Calc 57 Estimated GFR 47 L Glucose 91 Calcium 8.9 Magnesium 1.8 Total Bilirubin 0.6 AST 17 ALT 13 Alkaline Phosphatase 86 Total Protein 7.0 Albumin 3.5
[2024-01-29 14:00] VITALS: BP 129/65; PULSE 65; RESP 18; TEMP 36.8; O2SAT 98
[2024-01-29] MEDS: VANCOMYCIN 1,500 MG/NS 500 ML 1,500 MG/500 ML BAG 250 MG IVPB (16:36)
[2024-01-29] MEDS: MORPHINE SULFATE (*CRX) 4 MG/ML INJ IV PUSH (16:38)
--- NOTE | 2024-01-29 17:48 | PC.NURSE ---
gave report to receiving nurse at [facility] , Zeus RN @ [phone] 01/29/24.
[2024-01-29] MEDS: ALPRAZolam (*CRX) 0.25 MG TABLET PO (20:11)
[2024-01-29] MEDS: PREGABALIN (*CRX) 75 MG CAPSULE 150 MG PO (20:11)
[2024-01-29] MEDS: traZODone HCL 50 MG TABLET PO (20:12)
[2024-01-29] MEDS: PARoxetine 10 MG TABLET 30 MG PO (20:12)
[2024-01-29 20:22] VITALS: BP 124/49; PULSE 74; RESP 22; TEMP 36.6; O2SAT 98
--- NOTE | 2024-01-30 18:41 | PM.TDS ---
Transfer Discharge Sum: Prov Provider Date of admission: 01/27/24 15:08 Primary care physician: Cornell Kauffman, PA Admitting clinician: Bethany Fernandez DO Consults: 01/27/24 Consult to Physician Routine Comment: S/W office 01.27.24 @ 1038--ab/us Consulting Provider: Bob Colmenares Reason for consultation: sacral ulcer with osteomyelitis Has provider been notified: Yes 01/27/24 04:51 Care Coordination Consult Routine Reason for Consult:: Intermediate Placement Home Wound Vac Home Health Wound/ET Consult Routine Reason for Consult:: large sacral decubitus ulcer DS: Admitting Diagnosis Discharge Date 01/29/24 Admitting Diagnosis SACRAL PAIN DS: Discharge Diagnosis Discharge Diagnosis (1) Sacral decubitus ulcer: Code(s): L89.159 - Pressure ulcer of sacral region, unspecified stage Status: Acute (2) Bacteremia: Code(s): R78.81 - Bacteremia Status: Acute (3) Chronic osteomyelitis: Code(s): M86.60 - Other chronic osteomyelitis, unspecified site Status: Acute Transfer Discharge Sum: Med Medications Active and Home Medications: Home Medications paroxetine HCl 30 mg tablet 30 mg PO HS 09/15/22 [History Confirmed 01/27/24] trazodone 150 mg tablet 50 mg PO HS 09/15/22 [History Confirmed 01/27/24] timolol maleate 0.5 % eye drops 1 drp EACH EYE QAM #1 mL 12/29/22 [Rx Confirmed 01/27/24] multivitamin with minerals (Multiple Vitamin-Minerals tablet) 1 tablet PO DAILY 04/14/23 [History Confirmed 01/27/24] acetaminophen 325 mg capsule (Tylenol) 650 mg PO Q4H PRN pain fever 09/27/23 [History Confirmed 01/27/24] triamcinolone acetonide 0.1 % topical cream 1 applic topical DAILY PRN Rash #15 grams 09/29/23 [Rx Confirmed 01/27/24] alprazolam 0.5 mg tablet 0.25 mg PO BID 10/17/23 [History Confirmed 01/27/24] pregabalin 75 mg capsule (Lyrica) 150 mg PO BID 01/27/24 [History Confirmed 01/27/24] Transfer Discharge Sum: Hosp Hospital Course Hospital course: [age] year old male past medical history of chronic kidney disease, chronic pain syndrome, obesity, hypertension, strict of sleep apnea on CPAP peripheral neuropathy, functional paraplegia, decubitus ulcer, status post diverting colostomy who presented to the ER on account of worsening sacral pain. Patient noted he has sacral ulcer the past 1 year and half and has followed with surgeons in [place] who recommended flap surgery at some point however he noted he never followed up with them as he returned to the rehab. he noted he has chronic pain since last year. On Wednesday he had wound vac placed which made the pain worse and has never improved thus prompting presentation to the ER for proper eval and care. denies any chest pain, SOB, fever, vomiting, abd pain or vomiting. noted he is wheelchair bound. ER eval notable for vital signs stable and wnl. labs creatinine 1.5, WBC 11.0, CT pelvis showed sacral decubitus ulcer extending down to the coccyx. The coccyx itself is largely destroyed, suspicious for probable chronic osteomyelitis. Patient is started Zosyn and Vanc. Gen surgery was consulted and he recommended wound care. however blood culture was positive for MRSA thus [facility] was contacted as we do not have Infectious disease. He was accepted at [facility] and transferred last night to [facility]. ECHO showed normal EF and no valvular abnormalities. Topical management Assessment and Plan (1) Decubitus ulcer: Code(s): L89.90 - Pressure ulcer of unspecified site, unspecified stage Status: Acute (2) Sacral decubitus ulcer: Code(s): L89.159 - Pressure ulcer of sacral region, unspecified stage Status: Acute Assessment and Plan: Staph bacteremia Blood culture positive for staph aureus Continue Vancomycin likely from Chronic osteomyelitis ECHO Normal EF weeds no focal abnormalities a. patient accepted at [facility] Sacral ulcer with osteomyelitis presented with worsening pain CT Pelvis showed Chronic osteomyelitis Wound care following Continue above care. Gen surgery evaluated and recommended wound care Continue PRN pain control transfer to [facility] CKD stable, cr 1.5 HTN titrate home meds with clinical course YOSEPH on CPAP continue CPAP Paraplegia wheelchair bound Time Spent with Patient Time attestation: Total time spent providing and/or coordinating transfer services: DS: Data Data Completed and Pending Labs on day of discharge: Preliminary micro results at discharge 01/29/24 12:57 Blood Culture - Preliminary Blood 01/29/24 13:00 Blood Culture - Preliminary Blood
== END 2024-01-29 20:30 | disposition short-term general hospital (02) | DRG 593 ==
LOC: ANHED 01-27 04:44 → ANH3MEDSUR 01-27 05:51
PROVIDERS: Admitting Provider Internal Medicine; Emergency Provider Physician Assistant; PCP Physician Assistant; Visit Provider Internal Medicine
DX: L89.154 Pressure ulcer of sacral region, stage 4 (principal); G82.20 Paraplegia, unspecified; M46.28 Osteomyelitis of vertebra, sacral and sacrococcygeal region; N39.0 Urinary tract infection, site not specified; R78.81 Bacteremia; B95.62 Methicillin resistant Staphylococcus aureus infection as the cause of diseases classified elsewhere; I12.9 Hypertensive chronic kidney disease with stage 1 through stage 4 chronic kidney disease, or unspecified chronic kidney disease; N18.30 Chronic kidney disease, stage 3 unspecified; I87.8 Other specified disorders of veins; E78.5 Hyperlipidemia, unspecified; M10.9 Gout, unspecified; G47.33 Obstructive sleep apnea (adult) (pediatric); G89.4 Chronic pain syndrome; G62.9 Polyneuropathy, unspecified; H54.40 Blindness, one eye, unspecified eye; F10.10 Alcohol abuse, uncomplicated; F32.A Depression, unspecified; F41.9 Anxiety disorder, unspecified; Z93.3 Colostomy status; Z98.1 Arthrodesis status; Z87.891 Personal history of nicotine dependence; Z99.3 Dependence on wheelchair; Z74.01 Bed confinement status
CPT/HCPCS: 36415; 72193; 80053; 81001; 82565; 82948; 83605; 83735; 84145; 85025; 85055; 85610; 85652; 85730; 86140; 87040; 87086; 87181; 96365; 96375; 99212; 99285; A9270; C8929; G0378; G0463; J2270; J2405; J2543; J3370; Q9957; Q9967

== ENCOUNTER 2024-04-25 18:05 | Inpatient (IN) | payer MEDICARE, BC, SELFPAY ==
[2024-04-25 17:59] VITALS: BP 141/68; PULSE 125; RESP 22; TEMP 36.6; O2SAT 98
--- NOTE | 2024-04-25 18:43 | PC.NURSE ---
Pt refusing all treatment at this time. Pt requesting to be put on hospice and have comfort care. Pt states Im tired of dealing with this and i just want to ride it out and go out with some dignity Pt not HI or SI. Pt A&OX4 speaking with Dr. Celaya.
--- NOTE | 2024-04-25 18:43 | ED.GENADULT ---
HPI - General Adult General Chief complaint: Wound/Laceration Stated complaint: PRESSURE ULCER Time Seen by Provider: 04/25/24 18:40 History of Present Illness HPI narrative: This is a 64 old bed-bound longterm resident presenting for severe pain in his decubitus ulcer. Patient states over last year he has developed this ulcer. It has not been healing well. He says he is no longer able to take the pain of the debridement. He says he no longer wants any treatment and would like hospice care. Related Data Home Medications ?Medication ?Instructions ?Recorded ?Confirmed ?Last Taken ?Type paroxetine HCl 30 mg tablet 30 mg PO HS 09/15/22 01/27/24 04/14/23 History trazodone 150 mg tablet 50 mg PO HS 09/15/22 01/27/24 04/13/23 History multivitamin with minerals 1 tablet PO DAILY 04/14/23 01/27/24 Unknown History (Multiple Vitamin-Minerals tablet) acetaminophen 325 mg capsule 650 mg PO Q4H PRN pain fever 09/27/23 01/27/24 Unknown History (Tylenol) alprazolam 0.5 mg tablet 0.25 mg PO BID 10/17/23 01/27/24 Unknown History pregabalin 75 mg capsule (Lyrica) 150 mg PO BID 01/27/24 01/27/24 01/25/24 17:00 History Allergies Allergy/AdvReac Type Severity Reaction Status Date / Time allopurinol Allergy Unknown Rash Verified 10/17/23 14:41 carbamazepine Allergy Unknown Rash Verified 10/17/23 14:41 cyclobenzaprine Allergy Unknown Rash Verified 10/17/23 14:41 diclofenac Allergy Unknown Rash Verified 10/17/23 14:41 adhesive tape Allergy Rash Verified 10/17/23 14:41 [facility] Past Medical History Medical History Alcohol abuse Hydronephrosis Urinary retention Chronic pain syndrome Chronic kidney disease History of meningitis Depression with anxiety Legally blind Left eye History of GI bleed Gout Peripheral neuropathy YOSEPH on CPAP Hypertension Hyperlipidemia Surgical History Surgical History H/O Spinal surgery L3 through L5 laminectomy with fusion H/O hand surgery H/O inguinal hernia repair H/O cataract extraction History of tonsillectomy Family History Family History Mother Patient's mother is in good health Father Patient's father is Congestive heart failure Acute myocardial infarction Hypertension Grandparent Cerebrovascular accident Cancer Unknown No problems noted. Sibling Hypertension Sibling Hypertension Social History Social History Social History: The patient lives home alone. He is a former smoker. The patient used to be heavy smoker smoking up to 2-3 packs of cigarettes for several years. The patient was known to drink 8-10 beers a day, states he drinks less than that now and not every day. He is retired and disabled in 1979. 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 Code status: DNR/DNI Smoking packs per day: 3 Smoking cigarettes per day: 60.0 Years smoked: 15 Smoking pack-years: 45.00 Smoking status: Former smoker Smokeless tobacco user: chewing tobacco Second hand tobacco smoke exposure: No Additional smoking assessment comments: CURRENT: SMOKELESS TOBACCO (01/2023) Alcohol intake: never Substance use: never Substance use type: does not use Other substance usage details: oxycodone Last use: t-1 Do You Feel Safe in your Home?: Yes Lack of Transportation: No Lack of Food: Never True Current Housing: I Have Housing Concerned About Future Housing: No Difficulty Paying Gas/Electric Bills: No Difficulty Paying for Meds: No Currently Unemployed: No Education: High School Diploma/GED Difficulty w/ Childcare or Family Care: No Occupation/Education: retired Additional occupation/education comments: Retired [employer] Gender identity (if verbalized by the patient): Male Spiritual care concerns: No Exam Narrative: APPEARANCE: No apparent distress. Head: atraumatic. EYES: EOMI, NOSE: Atraumatic NECK: Trachea midline RESPIRATORY: No increased rate of breathing CARDIOVASCULAR: RRR, ABDOMINAL: Non-distended MUSCULOSKELETAl: No obvious deformities NEURO: Alert. Moving 4/4 extremities SKIN:: Foul-smelling Large stage IV decubitus ulcer between the glutes, excoriation and skin breakdown over the patient's posterior thigh PSYCHIATRIC: Normal affect Course Vital Signs Vital signs: Vital Signs Temperature 97.8 F 04/25/24 17:59 Pulse Rate 125 H 04/25/24 17:59 Respiratory Rate 22 H 04/25/24 17:59 Blood Pressure 141/68 H 04/25/24 17:59 Pulse Oximetry 98 04/25/24 17:59 Oxygen Delivery Room Air 04/25/24 17:59 Temperature 97.8 F 04/25/24 17:59 Pulse Rate 125 H 04/25/24 17:59 Respiratory Rate 22 H 04/25/24 17:59 Blood Pressure 141/68 H 04/25/24 17:59 Pulse Oximetry 98 04/25/24 17:59 Oxygen Delivery Room Air 04/25/24 17:59 Medical Decision Making MDM Narrative Medical decision making narrative: -Course: 64-year-old male presenting for painful sacral decubitus ulcer. This is been a chronic issue with this gentleman and is not been healing well despite aggressive treatment with diverting colostomy, skin grafts and frequent wound care. Patient is in severe pain. He states that he does not want any aggressive treatment and wants to be put on hospice citing his severe pain and poor quality of life. He has refused all IV laboratory studies and imaging studies. Aggressive medical management was explained offered to the patient and he has declined. He understands that without treatment he will his condition will likely worsen until he developed sepsis and passes away. Patient's reasoning is that his quality of life is terrible and he is in constant pain. At this time I cannot force him to undergo any treatment. I have encouraged his family to continue speaking with him at this time we will respect his wishes and he will be given pain control and admitted for hospice referral. Patient will be given pain medication to see if he changes mind once his pain is more under control. Vital Signs Vital Signs: Vital Signs Temperature 97.8 F 04/25/24 17:59 Pulse Rate 125 H 04/25/24 17:59 Respiratory Rate 22 H 04/25/24 17:59 Blood Pressure 141/68 H 04/25/24 17:59 Pulse Oximetry 98 04/25/24 17:59 Oxygen Delivery Room Air 04/25/24 17:59 Temperature 97.8 F 04/25/24 17:59 Pulse Rate 125 H 04/25/24 17:59 Respiratory Rate 22 H 04/25/24 17:59 Blood Pressure 141/68 H 04/25/24 17:59 Pulse Oximetry 98 04/25/24 17:59 Oxygen Delivery Room Air 04/25/24 17:59 Discharge Plan Discharge Clinical Impression: Decubitus ulcer of sacral region, stage 4 Patient Disposition: Still a Patient Condition: Guarded Prognosis Patient Language: Libyan Prescriptions: No Action Multiple Vitamin-Minerals Tablet 1 tablet PO DAILY acetaminophen [Tylenol] 325 mg Capsule 650 mg PO Q4H PRN (Reason: pain fever) triamcinolone acetonide 0.1 % cream 1 applic TOPICAL DAILY PRN (Reason: Rash) Qty: 15 0RF Rx Instructions: apply to eczema areas on BLE and head. alprazolam 0.5 mg tablet 0.25 mg PO BID pregabalin [Lyrica] 75 mg capsule 150 mg PO BID paroxetine HCl 30 mg tablet 30 mg PO HS trazodone 150 mg tablet 50 mg PO HS timolol maleate 0.5 % Drops 1 drp EACH EYE QAM Qty: 1 0RF Follow-up/Referrals: Jamari,CONNIE Benson [Primary Care Provider] -
[2024-04-25] MEDS: HYDROmorphone HCL INJ (*CRX) 1 MG/ML SYR IV PUSH ×4 (18:51→23:29)
--- OUTSIDE RECORDS SUMMARY | 2024-04-25 19:17 | XMS_ITS | Encounter Summary ---
Author Organization [facility] Healthcare Address [address] [place] [address] Care Team Providers Care Catalytic Case Operator Name Role Phone Evelio Mckee MD Primary Care Provider [phone] Encounter Details Date Type Department Care Team (Late st Contact Info) Description 05/17/[address] 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 AND SELECTION SPECIALIST Gender Identity Not on file Sexual Orientation Not on file documented as of this encounter Plan of Treatment Not on file documented as of this encounter Visit Diagnoses Not on filedocumented in this encounter Additional Health Concerns Infection Onset Date Last Indicated Resolved Time 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
--- OUTSIDE RECORDS SUMMARY | 2024-04-25 19:17 | XMS_ITS | Clinical Summary ---
Author Organization [facility] Address [address] [place] [address] Care Team Providers Care Soda Dispenser Name Role Phone Evelio Mckee MD Primary Care Provider [phone] Allergies Active Allergy Reactions Criticality Noted Date Comments Allopurinol Unknown 10/07/2022 Carbamazepine Unknown 10/07/2022 Diclofenac Sodium Unknown 10/07/2022 Medications pantoprazole (PROTONIX) 40 mg Tablet, Delayed Release (E.C.) pantoprazole 40 mg tablet,delayed release Active losartan-hydr oCHLOROthiazi de (HYZAAR) 100-25 mg tablet losartan 100 mg-hydrochloroth iazide 25 mg tablet Active simvastatin (ZOCOR) 20 mg tablet simvastatin 20 mg tablet Active traZODone (DESYREL) 150 mg tablet trazodone 150 mg tablet 1 po at HS Active ALPRAZolam (XANAX) 0.25 mg tablet alprazolam 0.25 mg tablet take 1 tablet by mouth twice a day as needed Active ferrous sulfate 325 mg (65 mg iron) tablet every 24 hours. A ctive gabapentin (NEURONTIN) 100 mg capsule gabapentin 100 mg capsule take 1 tablet by mouth 3 times a day Active PARoxetine HCl (PAXIL) 30 mg tablet every 24 hours. A ctive atenolol (TENORMIN) 25 mg tablet atenolol 25 mg tablet Active thiamine (VITAMIN B-1) 100 mg tablet Vitamin B-1 100 mg tablet take 1 tablet by mouth everyday Active triamcinolone acetonide (KENALOG) 0.1 % Cream triamcinolone acetonide 0.1 % topical cream Active timolol (TIMOPTIC) 0.5 % solution timolol maleate 0.5 % eye drops Active folic acid (FOLVITE) 1 mg tablet 06/27/19 19 Active DUPIXENT 300 mg/2 mL Syringe 07/21/19 19 Active pimecrolimus (ELIDEL) 1 % Cream Apply to affected area 2 times daily. Active oxyCODONE-dom taminophen (PERCOCET) 7.5-325 mg Tablet Take 1-2 Tablets by mouth every 6 hours as needed. Max Daily Amount: 5 tablets. 120 Tablet 2 9:28 AM CDT 08/21/19 22 Active fluconazole (DIFLUCAN) 100 mg tablet Take 1 tablet every day by oral route for 7 days. 7 Tablet 2 12:49 PM CDT 08/28/19 22 Active ALPRAZolam (XANAX) 0.5 mg tablet TAKE ONE TABLET BY MOUTH THREE TIMES A DAY NEEDED 90 Tablet 2 1:22 PM CDT 10/01/19 22 Active oxyCODONE-dom taminophen (PERCOCET) 7.5-325 mg Tablet TAKE ONE TO TWO TABLETS BY MOUTH EVERY 6 HOURS NEEDED FOR PAIN ( MAX OF 5 TABLETS PER DAY) 120 Tablet 2 12:42 PM INSURANCE PLAN SPECIALIST 03/10/20 22 Active traZODone (DESYREL) 150 mg tablet Take 1 Tablet (150 mg) by mouth daily at bedtime. 30 Tablet 11 3 1:23 PM CDT 04/07/19 23 Active traZODone (DESYREL) 150 mg tablet Take 1 Tablet (150 mg) by mouth daily at bedtime. 30 Tablet 3 2:23 PM CDT 04/07/19 23 Active furosemide (LASIX) 20 mg tablet TAKE ONE TABLET BY MOUTH ONCE DAILY 30 Tablet 11 3 2:18 PM CDT 04/07/19 23 Active timoloL maleate (TIMOPTIC) 0.5% solution ADMINISTER 1 DROP IN EACH EYE ONCE DAILY. 15 mL 12 3 5:41 PM CDT 05/11/19 23 Active pregabalin (LYRICA) 200 mg Capsule Take 1 Capsule (200 mg) by mouth 3 times daily. 90 Capsule 5 3 3:49 PM INSURANCE PLAN SPECIALIST 05/14/19 23 Active oxyBUTYnin chloride (DITROPAN XL) 5 mg Extended Release 24 hour tablet Take 1 Tablet (5 mg) by mouth daily. 30 Tablet 5 07/23/19 23 Active losartan (COZAAR) 100 mg tablet TAKE ONE TABLET BY MOUTH ONCE DAILY 90 Tablet 3 3 5:15 PM INSURANCE PLAN SPECIALIST 09/02/19 23 Active oxyCODONE-dom taminophen (PERCOCET) 10-325 mg Tablet Take 1 to 2 tablets by mouth every 6 hours as needed for pain 120 Tablet 3 12:40 PM CDT 09/02/19 23 Active oxyCODONE-dom taminophen (PERCOCET) 10-325 mg Tablet Take 1 to 2 Tablets by mouth every 6 hours as needed for pain. 120 Tablet 3 5:38 PM CDT 09/23/19 23 Active pregabalin (LYRICA) 200 mg Capsule Take 1 Capsule (200 mg) by mouth 3 times daily. 90 Capsule 3 3 12:14 PM INSURANCE PLAN SPECIALIST 09/23/19 23 Active oxyCODONE (ROXICODONE) 10 mg tablet Take 1 Tablet (10 mg) by mouth every 4 hours as needed for pain. Take 325 mg of tylenol (acetaminophen) with each tablet. 120 Tablet 3 2:07 PM CDT 10/10/19 23 Active mupirocin (BACTROBAN) 2 % Ointment Place a pea-sized amount in each nostril twice daily for 5 days prior to surgery. 22 Gram 3 3:09 PM CDT 10/15/19 23 Active oxyCODONE-dom taminophen (PERCOCET) 10-325 mg Tablet Take 1 to 2 tablets by mouth every 6 hours as needed for pain 120 Tablet 3 12:48 PM CDT 11/13/19 23 Active PARoxetine HCl (PAXIL) 30 mg tablet TAKE ONE TABLET BY MOUTH ONCE DAILY 30 Tablet 5 3 10:51 AM CDT 11/26/19 23 Active oxyCODONE-dom taminophen (PERCOCET) 10-325 mg Tablet Take 1 to 2 tablets by mouth every 6 hours as needed for pain. 120 Tablet 3 5:46 PM CDT 09/25/20 23 Active escitalopram oxalate (LEXAPRO) 10 mg tablet Take 1.5 Tablets (15 mg) by mouth daily at bedtime. 30 Tablet 3 9:34 AM CDT 12/30/19 Active hydrALAZINE (APRESOLINE) 25 mg tablet Take 1 Tablet (25 mg) by mouth 3 times daily. 60 Tablet 3 9:34 AM CDT 12/30/19 Active methocarbamoL (ROBAXIN) 750 mg tablet Take 2 Tablets (1,500 mg) by mouth 3 times daily. 30 Tablet 3 9:34 AM CDT 12/30/19 Active polyethylene glycol (MIRALAX) 17 gram Powder in Packet MIX 1 PACKET IN BEVERAGE OF CHOICE AND DRINK ONCE DAILY. 30 Each 12/30/19 Active sennosides-do cusate sodium (SENNA-S) 8.6-50 mg tablet Take 2 Tablets by mouth 2 times daily. 30 Tablet 3 9:34 AM CDT 12/30/19 Active timoloL maleate (TIMOPTIC) 0.5% solution ADMINISTER 1 DROP IN EACH EYE EVERY MORNING. 5 mL 12/30/19 Active multivitamin, calcium,mineral engineer als,iron,foli c acid (Thera M Plus, ferrous fumarat,) 9 mg iron-400 mcg Tablet Take 1 Tablet by mouth daily in the morning. 30 Tablet 3 2:35 PM CDT 12/30/19 Active oxyCODONE-dom taminophen (PERCOCET) 10-325 mg Tablet Take 1 to 2 tablets by mouth every 6 hours as needed for pain 120 Tablet 3 5:10 PM CDT 01/19/20 Active tamsulosin (FLOMAX) 0.4 mg capsule Take 1 Capsule (0.4 mg) by mouth daily at bedtime. 30 Capsule 11 3 5:15 PM INSURANCE PLAN SPECIALIST 01/23/20 Active escitalopram oxalate (LEXAPRO) 10 mg tablet Take 1 Tablet (10 mg) by mouth daily. 90 Tablet 3 3 11:17 AM CDT 01/25/20 Active hydrALAZINE (APRESOLINE) 25 mg tablet Take 1 Tablet (25 mg) by mouth 2 times daily. 60 Tablet 11 3 3:04 PM INSURANCE PLAN SPECIALIST 02/10/20 23 Active multivitamin, calcium,mineral engineer als,iron,foli c acid (Thera M Plus, ferrous fumarat,) 9 mg iron-400 mcg Tablet Take 1 Tablet by mouth daily. 100 Tablet 3 3 3:04 PM INSURANCE PLAN SPECIALIST 02/10/20 23 Active triamcinolone acetonide (KENALOG) 0.1 % Lotion APPLY TO LOWER LEG RASH ONCE OR TWICE DAILY 60 mL 3 10:20 AM INSURANCE PLAN SPECIALIST 02/17/20 23 Active atenoloL (TENORMIN) 25 mg tablet TAKE ONE TABLET BY MOUTH ONCE DAILY 90 Tablet 3 3 5:15 PM INSURANCE PLAN SPECIALIST 02/24/20 23 Active simvastatin (ZOCOR) 20 mg tablet Take 1 Tablet (20 mg) by mouth daily. 90 Tablet 3 3 5:16 PM INSURANCE PLAN SPECIALIST 02/25/20 23 Active ALPRAZolam (XANAX) 0.5 mg tablet Take 1 Tablet (0.5 mg) by mouth 4 times daily as needed. 120 Tablet 3 12:14 PM INSURANCE PLAN SPECIALIST 03/02/20 23 Active amLODIPine (NORVASC) 5 mg tablet Take 1 Tablet (5 mg) by mouth daily in the morning. 30 Tablet 3 2:58 PM INSURANCE PLAN SPECIALIST 03/16/20 23 Active pantoprazole (PROTONIX) 40 mg Tablet, Delayed Release (E.C.) Take 1 Tablet (40 mg) by mouth daily in the morning. 30 Tablet 3 2:58 PM INSURANCE PLAN SPECIALIST 03/16/20 23 Active oxyCODONE-dom taminophen (PERCOCET) 10-325 mg Tablet Take 1 to 2 tablets by mouth every 6 hours as needed for pain 120 Tablet 4 10:28 AM INSURANCE PLAN SPECIALIST 04/04/19 24 Active zinc sulfate 50 mg zinc (220 mg) capsule Take 1 capsule (220 mg total) by mouth daily 30 Capsule 11 05/30/19 24 Active oxyCODONE-dom taminophen (PERCOCET) 10-325 mg Tablet Take 1-2 Tablets by mouth every 6 hours as needed for pain. Max Daily Amount: 8 Tablets 110 Tablet 4 4:22 PM CDT 10/28/19 24 Active tamsulosin (FLOMAX) 0.4 mg capsule Take 1 Capsule (0.4 mg) by mouth daily at bedtime. 30 Capsule 11 4 4:22 PM CDT 10/28/19 24 Active ALPRAZolam (XANAX) 0.25 mg tablet Take 1 Tablet (0.25 mg) by mouth 2 times daily as needed. 50 Tablet 4 1:03 PM CDT 11/04/19 24 Active pregabalin (LYRICA) 50 mg Capsule Take 1 capsule by mouth daily at bedtime for 7 days , take 1 capsule twice daily for 7 days , and 1 capsule three times daily. 42 Capsule 4 2:19 PM CDT 11/09/19 24 Active lidocaine (XYLOCAINE) 2% jelly Apply around the gutierrez catherer as needed daily for removal 30 mL 12/27/19 24 Active oxyCODONE-dom taminophen (PERCOCET) 10-325 mg Tablet Take 1-2 Tablets by mouth every 6 hours as needed for pain. Max Daily Amount: 8 Tablets. Must last 30 days. 100 Tablet 4 4:47 PM CDT 12/28/19 24 Active traZODone (DESYREL) 150 mg tablet Take 1 Tablet (150 mg) by mouth daily as needed at bedtime. 30 Tablet 4 4:53 PM CDT 12/30/19 24 Active ALPRAZolam (XANAX) 0.25 mg tablet TAKE ONE TABLET BY MOUTH ONCE A DAY NEEDED 30 Tablet 4 1:13 PM CDT 01/10/20 24 Active mirtazapine (REMERON) 7.5 mg tablet Take 1 Tablet (7.5 mg) by mouth daily at bedtime for insomnia. 30 Tablet 6 4 1:21 PM CDT 01/20/20 24 Active predniSONE (DELTASONE) 20 mg tablet Take 2 tablets by mouth twice daily for 2 days; then take 1 tab twice daily for 5 days; then take 1/2 tab twice daily for 2 days; then take 1/2 tab once for 1 day. TAKE 2ND DOSE EVERYDAY AT NOON 21 Tablet 4 1:21 PM CDT 01/20/20 24 Active atorvastatin (LIPITOR) 10 mg tablet Take 1 Tablet (10 mg) by mouth daily. 30 Tablet 6 4 2:32 PM INSURANCE PLAN SPECIALIST 02/09/20 24 025 Active hydrOXYzine HCL (ATARAX) 25 mg tablet Take 1 Tablet (25 mg) by mouth 4 times daily as needed. 120 Tablet 1 02/09/20 24 Active PARoxetine HCl (PAXIL) 30 mg tablet TAKE ONE TABLET BY MOUTH ONCE DAILY 30 Tablet 5 5 3:43 PM INSURANCE PLAN SPECIALIST 03/01/20 24 Active cyclobenzapri ne (FLEXERIL) 10 mg tablet Take 1 Tablet (10 mg) by mouth daily at bedtime. 30 Tablet 2 5 5:12 PM INSURANCE PLAN SPECIALIST 03/09/20 24 Active hydrOXYzine HCL (ATARAX) 25 mg tablet Take 1 tablet (25 mg total) by mouth every 8 (eight) hours as needed for Itching or Anxiety. 90 Tablet 4 2:01 PM INSURANCE PLAN SPECIALIST 03/16/20 24 Active traZODone (DESYREL) 50 mg tablet Take 1 Tablet (50 mg) by mouth daily at bedtime. 30 Tablet 1 4 2:01 PM INSURANCE PLAN SPECIALIST 03/24/20 24 Active pregabalin (LYRICA) 150 mg Capsule Take 1 Capsule (150 mg) by mouth 2 times daily. 60 Capsule 03/30/19 25 Active pregabalin (LYRICA) 150 mg Capsule Take 1 Capsule (150 mg) by mouth 2 times daily. 60 Capsule 5 5:12 PM INSURANCE PLAN SPECIALIST 03/31/19 25 Active OTHER Apply to area around gutierrez catheter to remove debris. 1 Each 3 5 2:26 PM INSURANCE PLAN SPECIALIST 04/05/19 25 Active OTHER Apply around gutierrez catheter to remove debris 30 Each 04/05/19 25 Active tamsulosin (FLOMAX) 0.4 mg capsule Take 1 Capsule (0.4 mg) by mouth daily at bedtime. 90 Capsule 4 5 1:02 PM INSURANCE PLAN SPECIALIST 04/13/19 25 Active traMADoL (ULTRAM) 50 mg tablet Take 1 Tablet (50 mg) by mouth every 6 hours as needed for pain. 24 Tablet 5 2:55 PM INSURANCE PLAN SPECIALIST 04/21/19 25 Active pregabalin (LYRICA) 150 mg Capsule Take 1 Capsule (150 mg) by mouth 2 times daily. 60 Capsule 5 4 1:10 PM INSURANCE PLAN SPECIALIST 01/10/20 24 025 traMADoL (ULTRAM) 50 mg tablet Take 1 tablet (50 mg total) by mouth every 8 (eight) hours as needed for Pain. Indications: Chronic Pain 90 Tablet 4 2:01 PM INSURANCE PLAN SPECIALIST 03/16/20 24 025 Discontinued oxyCODONE (ROXICODONE) 10 mg tablet Take 1 Tablet (10 mg) by mouth 2 times daily as needed. 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 Encounters Date Type Department Care Team Description 04/11/2024 External Device Data [facility] ABSTRACTION Provider, Abstract 01/26/2024 External Device Data [facility] ABSTRACTION Provider, Abstract from Last 3 Months Family History Medical History Relation Name Comments No Known Problems Brother Heart Disease Father No Known Problems Mother Relation Name Status Comments Brother Alive Father Mother Alive Social History Tobacco Use Types Packs/Day Years Used Date Smoking Tobacco: Unknown Smokeless Tobacco: Current Alcohol Use Standard Drinks/Week Comments Never 0 (1 standard drink = 0.6 oz pur e alcohol) Sex and Gender Information Value Date Recorded Sex Assigned at Not on file Legal Sex Male 3:45 AM INSURANCE PLAN SPECIALIST Gender Identity Not on file Sexual Orientation Not on file Occupation Industry Job Start Date Job End Date Not on file Not on file Not on file Not on file Last Filed Vital Signs Vital Sign Reading Time Taken Comments Blood Pressure - - Pulse - - Temperature - - Respiratory Rate - - Oxygen Saturation - - Inhaled Oxygen Concentration - - Weight 127 kg (280 lb) 08/10/2018 11:29 AM CDT Height 175.3 cm (5' 9) 08/10/2018 11:29 AM CDT Body Mass Index 41.35 08/10/2018 11:29 AM CDT Plan of Treatment Health Maintenance Due Date Last Done Comments DTAP/TDAP/TD VACCINES (1 - Tdap) 1978 COLORECTAL SCREENING 02/26/2004 Colorectal Cancer Screening 02/26/2004 FIT-DNA Q 3 years 02/26/2004 FIT/FOBT Q 1 year 02/26/2004 Flex Sig/CT Colonography Q 5 years 02/26/2004 PNEUMOCOCCAL VACCINE 65+ YEARS (1 of 1 - PCV) 02/26/20 09 ZOSTER VACCINE (1 of 2) 2009 INFLUENZA VACCINE (#1) 2023 RSV VACCINE (60+ or ) (1 - 1-dose 75+ series) 2034 Insurance MEDICARE PART A AND B [facility] [employer] (INTERNAL) [facility] Medicare Part D RX [facility] Medicare Part D Care Teams Soda Dispenser Relationship Specialty Start Date End Date Evelio Mckee MD PCP - General Family Practice 07/26/18
--- OUTSIDE RECORDS SUMMARY | 2024-04-25 19:17 | XMS_ITS | Continuity of Care Document ---
Author Organization [facility] Address [address] [place] [address] Phone Care Team Providers Care Retort Unloader Name Role Phone Brody Hernandez Unavailable Unavailable Procedures Procedure Date Eye Exam & Treatment Injection Eye Drug Bevacizumab (Avastin) Ophthalmoscopy, Subsequent Optic Nerve Topography Eye Exam & Treatment Ophthalmoscopy, Subsequent Optic Nerve Topography Eye Exam & Treatment Ophthalmoscopy, Subsequent Ophthalmoscopy, Subsequent Optic Nerve Topography Eye Exam & Treatment Ophthalmoscopy, Subsequent Optic Nerve Topography Ophthalmoscopy Ophthalmoscopy Optic Nerve Topography Optic Nerve Topography Injection Eye Drug Kenalog/Triamcinolone Acetonide Inj Eye Exam & Treatment Office/outpatient Visit, [facility] Advance Directives Directive Yes / No Effective Date File Name No Information Encounters Encounter Description Practice Location Reason(s) For Visit Diagnoses Date Provider Providers Copied on Encounter [facility], [address], [place], [place], [id number], [place] tel:[phone] [facility] No Information 0 Mary Skinner. [address] [place], [address], [place]. tel:[phone] Referring Provider: Brody Dsouza, [address] [place], [address]. tel:[phone] [facility], [address], [place], [place], [id number], [place] tel:[phone] [facility] No Information Dec-0 4-201 0 Mary Skinner. [address] [place], [address], [place]. tel:[phone] Referring Provider: Brody Dsouza, [address] [place], [address]. tel:[phone] [facility], [address], [place], [place], [id number], [place] tel:[phone] [facility] No Information Oct-3 0-201 0 Mary Skinner. [address], [place], [facility], [place]. tel:[phone] Referring Provider: Brody Dsouza, [address] [place], [address]. tel:[phone] [facility], [address], [place], [place], [id number], [place] tel:[phone] [facility] No Information Oct-0 9-201 0 Mary Skinner. [address] [place] [address], [address], [place]. tel:[phone] Referring Provider: Brody Dsouza, [address] [place], [address]. tel:[phone] [facility], [address], [place], [place], [id number], [place] tel:[phone] [facility] No Information Sep-2 6-201 0 Mary Skinner. [address] [place] [address], [address], [place]. tel:[phone] Referring Provider: Cornell Edward, [address], [place], [address]. tel:[phone] Office/outpat ient Visit, [facility], [address], [place], [place], [id number], [place] tel:[phone] [facility] No Information 0 José Sarabia. [address], [place], [address], [place]. tel:[phone] Family History Family Member Type Diagnosis Age At Onset No Information Payers Payer name Insurance type Covered green party ID Authoriza tiwilliam(s) [place] FEP BL [id number] Social History Type Description Quantity Date Captured Comments Sex Male Smoking Status No Information Chief Complaint And Reason For Visit No Information Reason For Referral Reason For Referral No Information History Of Present Illness Encounter Date Complaint History Of Prese nt Illness No Information Functional Status Date Functional Assessmen t No Information Instructions Date Instruction Additional Infor mation No Information Assessments Type Assessment Date No Information Patient Care Teams Name Effective Dates (start - stop) Status Members No Information
--- OUTSIDE RECORDS SUMMARY | 2024-04-25 19:18 | XMS_ITS | Encounter Summary ---
Author Organization [facility] Address [address] [place] [address] Phone Care Team Providers Care Spray Gun Repairer Helper Name Role Phone Evelio Mckee MD Primary Care Provider [phone] Encounter Details Date Type Department Care Team (Late st Contact Info) Description 10/06/2019 Orders Only [facility]. 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) Social History Tobacco Use Types Packs/Day Years Used Date Smoking Tobacco: Former Smokeless Tobacco: Current Alcohol Use Standard Drinks/Week Comments Yes 0 (1 standard drink = 0.6 oz pur e alcohol) every day Sex and Gender Information Value Date Recorded Sex Assigned at Not on file Legal Sex Male 5:04 PM EDT Gender Identity Not on file Sexual Orientation Not on file documented as of this encounter Plan of Treatment Not on file documented as of this encounter Visit Diagnoses Diagnosis Hyponatremia 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
--- OUTSIDE RECORDS SUMMARY | 2024-04-25 19:18 | XMS_ITS | Encounter Summary ---
Author Organization [facility] Address [address] [place] [address] Phone Care Team Providers Care Senior Sas Developer Name Role Phone Evelio Mckee MD Primary Care Provider [phone] Encounter Details Date Type Department Care Team (Late st Contact Info) Description 09/29/2019 Orders Only [facility]. [address] [facility] [address] [facility] [address] [place] [address] Александр Alatorre MD [address] [facility] [address] [place] [address] Hyponatremia; Syndrome of inappropriate secretion [...] (HCC) documented in this encounter Care Teams Senior Sas Developer Relationship Specialty Start Date End Date Evelio Mckee MD [address] [place] [address] PCP - General Family Medicine 09/07/19 documented as of this encounter
--- OUTSIDE RECORDS SUMMARY | 2024-04-25 19:18 | XMS_ITS | Encounter Summary ---
Author Organization [facility] Address [address] [place] [address] Care Team Providers Care Stove Polisher Name Role Phone Evelio Mckee MD Primary Care Provider [phone] Encounter Details Date Type Department Care Team (Late st Contact Info) Description 02/13/1999 Outpatient Historical [facility] DEPT Ari Trevino MD [address] [place] [address] Backache, unspecified (Primary Dx) Social History Tobacco Use Types Packs/Day Years Used Date Smoking Tobacco: Never Assessed Sex and Gender Information Value Date Recorded Sex Assigned at Not on file Legal Sex Male 3:45 AM PHONE CIRCUIT OPERATOR Gender Identity Not on file Sexual Orientation Not on file documented as of this encounter Plan of Treatment Not on file documented as of this encounter Visit Diagnoses Diagnosis Backache, unspecified- Primary documented in this encounter Care Teams Stove Polisher Relationship Specialty Start Date End Date Evelio Mckee MD PCP - General Family Practice 07/26/18 documented as of this encounter
--- OUTSIDE RECORDS SUMMARY | 2024-04-25 19:18 | XMS_ITS | Clinical Summary ---
Author Organization [facility] Address [facility]. 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 Indications: Muscle Spasm 03/06/20 19 Active dupilumab (DUPIXENT) 300 mg/2 mL injectionIndic ations:Eczema Dupixent 300 mg/2 mL subcutaneous syringe 07/21/19 19 Active PARoxetine 30 MG tabletIndicati ons:Anxiety associated with Depression Take 1 tablet (30 mg total) by mouth. Indications: Anxiousness associated with Depression 01/18/20 18 Active timolol 0.5 % ophthalmic solutionIndica tions:Glaucoma Apply 1 drop to eye daily. Indications: Glaucoma 03/30/19 19 Active senna-docusate (SENNA S) 8.6-50 MG tabletIndicati ons:Constipati on Take 2 tablets by mouth as needed for Constipation. Indications: Constipation 02/04/20 24 Active traZODone (DESYREL) 50 MG tabletIndicati ons:Insomnia Take 1 tablet (50 mg total) by mouth nightly at bedtime. Indications: Trouble Sleeping 02/09/20 24 Active Multiple Vitamins-Mccormick als (CENTRUM SILVER 50+MEN OR) Take 1 tablet by mouth daily. Active atorvastatin (LIPITOR) 10 MG tabletIndicati ons:Cholestero l Take 1 tablet (10 mg total) by mouth nightly at bedtime. Indications: Cholesterol Active pregabalin (LYRICA) 150 MG capsuleIndicat ions:Neuropath ic Pain Take 1 capsule (150 mg total) by mouth 2 (two) times daily. Indications: Neuropathic Pain 60 capsule 03/31/19 25 Active traMADol (ULTRAM) 50 MG tabletIndicati ons:Chronic Pain Take 1 tablet (50 mg total) by mouth every 8 (eight) hours. Indications: Chronic Pain 04/12/19 25 Active traMADol (ULTRAM) 50 MG tabletIndicati ons:Acute Pain < 7 Day Supply Take 1 tablet (50 mg total) by mouth every 6 (six) hours as needed for Pain. Indications: Acute Pain < 7 Day Supply 24 tablet 04/21/19 25 025 Active HYDROcodone-ac etaminophen 10-325 MG tabletIndicati ons:Chronic Pain Take 2 tablets by mouth. Indications: Chronic Pain 05/11/19 20 025 Discontinu ed(Other- Please enter comment in Notes field) pregabalin (LYRICA) 150 MG capsuleIndicat ions:Neuropath ic Pain Take 1 capsule (150 mg total) by mouth 2 (two) times daily. Indications: Neuropathic Pain 11/08/19 20 025 Discontinu ed(Reorder ) hydrOXYzine (ATARAX) 25 MG tabletIndicati ons:Pruritus Take 1 tablet (25 mg total) by mouth every 8 (eight) hours as needed for Itching or Anxiety. Indications: Itching 90 tablet 03/16/20 24 025 traMADol (ULTRAM) 50 MG tabletIndicati ons:Chronic Pain Take 1 tablet (50 mg total) by mouth every 8 (eight) hours as needed for Pain. Indications: Chronic Pain 90 tablet 03/16/20 24 025 Discontinu ed(Other- Please enter comment in Notes field) pregabalin (LYRICA) 150 MG capsuleIndicat ions:Neuropath ic Pain Take 1 capsule (150 mg total) by mouth 2 (two) times daily. Indications: Neuropathic Pain 60 capsule 03/30/19 25 025 Discontinu ed(Reorder ) oxyCODONE immediate release (ROXICODONE) 10 MG immediate release tabletIndicati ons:Chronic Pain Take 1 tablet (10 mg total) by mouth 2 (two) times daily as needed for Pain. Indications: Chronic Pain 60 tablet 03/31/19 25 025 Discontinu ed(Allergi c response) Active Problems Problem Noted Date Diagnosed Date History of seizures 03/16/2024 History of drug overdose 03/16/2024 Overview (03/16/2024): Initial visit 03/16/2024: He reports he has had an intentional Tylenol overdose in the past History of pneumonia 03/16/2024 Refused influenza vaccine 03/16/2024 Overview (03/16/2024): Initial visit 03/16/2024: Patient refused influenza vaccine Assessment & Plan (03/16/2024 7:04 PM BLUE LINE OPERATOR): He was counseled on importance of influenza vaccine especially in the setting of his chronic disease processes Generalized anxiety disorder 03/16/2024 Overview (03/16/2024): Initial visit 03/16/2024: He reports he was taking alprazolam 0.25 mg tablet twice daily however is not taking it because his provider will no longer give it to him. Assessment & Plan (03/16/2024 7:02 PM BLUE LINE OPERATOR): Discussed with patient that long-term benzodiazepine therapy is not advised for many reasons. I have prescribed hydroxyzine 25 mg oral every 8 hours as needed for anxiety/itching that he can try. Per discharge medication reconciliation, he was given this medication while hospitalized. 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 Assessment & Plan (03/16/2024 7:00 PM BLUE LINE OPERATOR): Plan to discuss increasing paroxetine at upcoming visit. Controlled substance agreement signed 03/16/2024 Overview (03/16/2024): Signed at initial visit 03/16/2024 Status post bilateral cataract extraction 2023 History of sleep apnea 03/16/2024 Overview (03/16/2024): Initial visit 03/16/2024: He reports he has a history of sleep apnea however has not been using CPAP for over 1 year. He is unsure of date of last sleep study. Wound pain 01/20/2024 Insomnia 01/10/2024 Overview (03/16/2024): Initial visit 03/16/2024: On trazodone 50 mg nightly. He reports he was previously on higher dose however his previous provider decreased his dose. Spinal stenosis, lumbar hardeep on without neurogenic claudication 10/31/2023 Benign prostatic hyperplasia 10/28/2023 Pressure injury of skin 10/28/2023 Benign prostatic hyperplasia with urinary freque ncy 10/26/2023 Chronic indwelling Durant catheter 10/23/2023 Overview (03/16/2024): Initial visit 03/16/2024: He reports he has had a chronic Durant catheter for over 1 year. He reports he gets changed monthly. He is unsure why he has the Durant catheter however thinks it is due to urinary retention. He reports he has appointment with urologist upcoming April 13, 2024. Osteoarthritis of left hip 10/23/2023 Overview (03/16/2024): Initial visit 03/16/2024: Noted as severe on x-ray. He reports this is why he cannot walk. He reports he cannot do physical therapy due to extreme pain. At high risk for malnutrition 05/24/2023 Pressure injury of sacral region, stage 4 (CMS/[facility]) 05/22/2023 Overview (03/16/2024): Initial visit 03/16/2024: Reports he has had [employer] senior specialist come by his house once a week however has only seen her twice. Assessment & Plan (03/16/2024 6:52 PM BLUE LINE OPERATOR): Due to the complexity of his wound, I would like to refer patient to wound care provider (physicians/nurse practitioner). Colostomy status ([facility]) 03/29/2023 Overview (03/16/2024): Initial visit 03/16/2024: This was reportedly done due to his sacral ulcer. He reports he was told that it can likely be resolved in the future. CKD (chronic kidney disease) 03/23/2023 Nicotine abuse 03/22/2023 Overview (03/16/2024): Initial visit 03/16/2024: He reports he previously has smoked cigarettes in the past approximately 2 packs/day for unknown amount of years however quit around age 39. He reports he made a lateral transfer and started using nicotine pouches. Assessment & Plan (03/16/2024 7:22 PM BLUE LINE OPERATOR): This likely contributed to his tongue cancer and also likely is contributing to poor wound healing. Frequent falls 03/22/2023 Anemia in chronic kidney disease 02/08/2023 Retention of urine 01/27/2023 Arthralgia of right knee 01/27/2023 Symptoms involving urinary system 09/11/2022 Dystrophia unguium 11/23/2021 Onycholysis 11/23/2021 Tongue dysplasia 05/15/2021 Overview (03/16/2024): PROCEDURE PERFORMED ( 05/26/21, Tommy) Partial glossectomy, less than half. Eczema 11/21/2019 Overview (03/16/2024): Initial visit 03/16/2024: He reports he was previously on Dupixent Chronic low back pain 11/10/2018 Cervical myelopathy ([facility]) 08/09/2018 Exogenous obesity 08/09/2018 Blindness of one eye 05/04/2018 Overview (03/16/2024): Initial visit 03/16/2024: Left eye. He reports it came on suddenly. Hypercholesterolemia 05/04/2018 Overview (03/16/2024): Initial visit 03/16/2024: On atorvastatin 10 mg daily. Reports he was previously on simvastatin. Impairment of balance 05/04/2018 Neuropathy 05/03/2018 Overview (03/16/2024): Initial visit 03/16/2024: Patient denies previous diagnosis of diabetes. He is on pregabalin 150 mg twice daily Primary open angle glaucoma (POAG) of both eyes, mild stage 03/09/2016 Overview (03/16/2024): Initial visit 03/16/2024: On timolol eyedrops daily. 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 Primary hypertension 07/03/2010 Overview (03/16/2024): Initial visit 03/16/2024: He reports that her blood pressure resolved after losing weight and he is no longer on medication Resolved Problems Problem Noted Date Diagnosed Date Resolved Date Staphylococcus aureus bacteremia 01/28/2024 03/16/2024 Open wound 01/04/2024 03/16/2024 Fall from bed, initial encounter 10/20/2023 03/16/2024 Discharge planning issues 05/23/2023 BOAZ (acute kidney injury) 03/23/2023 Severe protein-calorie malnu trition ([facility]) 03/23/2023 03/16/2024 Hyponatremia 03/23/2023 03/16/2024 Hypoalbuminemia 03/23/2023 03/16/2024 Elevated brain natriuretic p eptide (BNP) level 03/23/2023 03/16/2024 Alcohol abuse 03/22/2023 03/16/2024 Overdose 03/08/2023 03/16/2024 Iron deficiency 02/08/2023 03/16/2024 Cervical disc disorder with myelopathy of mid-cervical region 10/14/2022 03/16/2024 Acute urinary tract infection 09/14/2022 03/16/2024 Open wound of lower leg 08/27/202102/26 Oral lesion 01/01/2021 03/16/2024 Bilateral leg edema 11/21/2019 03/16/20 Age-related nuclear cataract of right eye 03/25/2018 03/16/2024 Encounters Date Type Department Care Team Description 04/25/2024 11:00 AM BLUE LINE OPERATOR Home Care Visit [address] [place] [address] [place] [address] Flaca Rascon, RN CASE COMMUNICATION 04/25/[address], [facility] [address] [place] [address] Cora Whipple, Advise 04/25/2024 Telephone [facility] [place] [address] [facility] [address] [place] [address] Cora Whipple, Referral 04/23/2024 Home Care Visit [address] [place] [address] [place] [address] Christine Buenrostro RN CASE COMMUNICATION 04/21/2024 Medication Management [facility] [address] [facility] [address] [place] [address] Cora Whipple DO 04/21/2024 [facility] [place] [address] [facility] [address] [place] [address] Cora Whipple, Concerns 04/21/2024 Travel 04/20/2024 10:00 AM BLUE LINE OPERATOR Home Care Visit [facility] Home [address] [place] [address] [place] [address] Kika Mg LPN SN HOME VISIT 04/19/2024 Telephone [place] [address] [address] [place] [address] [place] [address] Cora Whipple, DO Medication 04/12/2024 12:30 PM BLUE LINE OPERATOR Home Care Visit [facility] Home [address] Care [facility] [place] [address] Kika Mg LPN SN HOME VISIT 04/05/2024 12:15 PM BLUE LINE OPERATOR Home Care Visit [facility] Care [address] [place] [address] Kika Mg LPN SN HOME VISIT 04/04/2024 Telephone [place] [address] [place] [address] [place] [address] Cora Whipple, DO Question 03/31/2024 2:40 PM BLUE LINE OPERATOR Telemedicine [facility] [place] [address] [place] [address] [address] [place] [address] Miarnda Sawyer MD Pain (Pt states his pain medication is not working. Wound nurse called today to discuss his nurse states it looks fine but pt states it hurts really bad. Pt was sent lyrica and tramdol and pt states its not wokring, the rx that was sent yesterday the pharmacy cannot fill till pt in a lot of pain and not mobile ); Follow Up; Spasm Of Muscle 03/31/[address] [facility] [place] [address] [place] [address] [place] [address] Cora Whipple, DO Medication 03/30/2024 3:30 PM BLUE LINE OPERATOR Home Care Visit [address] [place] [address] Nay Kaplan, RN CASE COMMUNICATION 03/30/2024 12:45 PM BLUE LINE OPERATOR Home Care Visit [facility] Home Care [address] [place] [address] [place] [address] Kaylen Ceron RN SN OASIS RECERTIFICATION 03/30/2024 Plan of Care Documentation [address] [place] [address] [place] [address] 03/30/2024 Telephone [place] [address] [place] [address] [address] [place] [address] Cora Whipple, DO Behavioral Problem (Nurse Kaylen was concerned as patient has not been eating for 3 days, not taking certain medications and is saying that he is done and wants to . He has refused urinary catheter change.) 03/30/2024 Telephone [place] [id number] [place] [address] [place] [address] Cora Whiplpe, DO Information 03/24/2024 Scan [facility] Scanned, Doc [facility] 03/23/2024 9:00 AM BLUE LINE OPERATOR Home Care Visit [address] Care [facility] [place] [address] [place] [address] Kika Mg LPN SN HOME VISIT 03/20/2024 Telephone [place] [address] [place] [address] [place] [address] Coar Whipple, DO Question 03/16/2024 2:20 PM BLUE LINE OPERATOR Office Visit [facility] [address] [place] [address] [address] [place] [address] Cora Whipple, DO New Patient 03/16/2024 Travel 03/15/2024 10:00 AM BLUE LINE OPERATOR Home Care Visit [facility] Home Care [address] [place] [address] [place] [address] Kaylen Ceron RN SN HOME VISIT 03/02/2024 Scan [facility] INFO [facility] Scanned, [facility] 02/29/2024 10:00 AM BLUE LINE OPERATOR Home Care Visit [facility] Care [address] [place] [address] Kaylen Ceron, GABRIEL SN HOME VISIT 02/23/2024 3:49 PM BLUE LINE OPERATOR - 02/23/2024 11:59 PM BLUE LINE OPERATOR Hospital Encounter [facility] [address] [facility] [place] [address] iPno Shah MD Discharge Disposition: Home or Self Care (Routine Discharge) 02/23/2024 9:15 AM BLUE LINE OPERATOR Home Care Visit [address] [place] [address] [place] [address] Kaylen Ceron RN SN HOME VISIT 02/23/2024 Orders Only [facility] [address] [facility] [place] [address] Pino Shah MD 02/22/20[address] [facility] Scanned, [facility] 02/16/2024 12:02 PM BLUE LINE OPERATOR - 02/16/2024 11:59 PM BLUE LINE OPERATOR Hospital Encounter [facility] [address] [place] [address] Pino Shah MD Discharge Disposition: Home or Self Care (Routine Discharge) 02/16/2024 9:00 AM BLUE LINE OPERATOR Home Care Visit [address] [place] [address] Halina Christian RN SN HOME VISIT 02/16/2024 9:00 AM BLUE LINE OPERATOR Home Care Visit [address] [place] [address] [place] [address] Grazyna Baker RN /[facility] ORIENTATION VISIT 02/16/2024 Orders Only [facility] [address] [place] [address] Pino Shah MD 02/09/2024 5:00 PM BLUE LINE OPERATOR - 02/09/2024 11:59 PM BLUE LINE OPERATOR Hospital Encounter [facility] [address] [place] [address] Pino Shah MD Discharge Disposition: Home or Self Care (Routine Discharge) 02/09/2024 10:00 AM BLUE LINE OPERATOR Home Care Visit [address] [place] [address] Kaylen Ceron RN SN HOME VISIT 02/09/2024 Orders Only [facility] [address] [place] [address] Pino Shah MD 02/04/2024 10:00 AM BLUE LINE OPERATOR Home Care Visit [address] [place] [address] Félix Garrett RN SN OASIS START OF CARE 02/04/2024 Plan of Care Documentation [address] [place] [address] 02/03/[address] [address] Scanned, Doc Hospital 02/03/[address] Care [facility] [place] [address] Scanned, Doc Hospital 02/02/2024 Scan HEALTH INFO [facility]CS Scanned, Doc [facility] from Last 3 Months Immunizations Name Administration Dates Next Due Pneumococcal (Prevnar 13) 12/12/2018 Family History Medical History Relation Comments Hypertension Brother 1 Hyperlipidemia Brother 2 Hypertension Brother 2 Heart Attack Father Lung Cancer Maternal Grandfather Smoker Hypertension Maternal Grandmother Hyperlipidemia Mother Hypertension Mother Leukemia Paternal Grandfather Dementia Paternal Grandmother Heart Disease Paternal Grandmother Relation Status Comments Brother 1 Alive Brother 2 Alive Father Maternal Grandfather Maternal Grandmother Mother Alive Paternal Grandfather Paternal Grandmother Social History Tobacco Use Types Packs/Day Years Used Date Smoking Tobacco: Former Cigarettes Smokeless Tobacco: Current Snuff Tobacco Cessation:Ready to Q uit: No; Counseling Given: Yes Alcohol Use Standard Drinks/Week Comments Not Currently 0 (1 standard drink = 0.6 oz pur e alcohol) OASIS D0700: Social Isolation Answer Da te Recorded Frequency of experiencing loneliness or isolatio n Sometimes 02/04/2024 OASIS A1250: Transportation Answer Date Recorded Lack of Transportation (Medical) No 02/04/2024 Lack of Transportation (Non-Medical) No 02/04/2024 Patient Unable or Declines to Respond No 02/04/2024 OASIS B1300: Health Literacy Answer Ok e Recorded Frequency of needing help to read materials from doctor or pharmacy Sometimes 02/04/2024 AUDIT-C Answer Date Recorded Q1: How often do you have a drink containing alcohol? 4 or more times a week 11/20/2019 Average Number of Drinks Not on file 020 Frequency of Binge Drinking Not on file 10/28 PHQ-2 Answer Date Recorded Patient Health Questionnaire-2 Score 3 03/16/2024 Sex and Gender Information Value Date Recorded Sex Assigned at Male 04/21/2024 1:44 PM BLUE LINE OPERATOR Legal Sex Male 5:52 PM CDT Gender Identity Male 04/21/2024 1:44 PM BLUE LINE OPERATOR Sexual Orientation Not on file Last Filed Vital Signs Vital Sign Reading Time Taken Comments Blood Pressure 120/70 04/20/2024 10:05 AM BLUE LINE OPERATOR Pulse 74 04/20/2024 10:05 AM BLUE LINE OPERATOR Temperature 36.3 ??C (97.4 ??F) 04/20/2024 1 0:05 AM BLUE LINE OPERATOR Respiratory Rate 18 04/20/2024 10:0 5 AM BLUE LINE OPERATOR Oxygen Saturation 98% 04/20/2024 10: 05 AM BLUE LINE OPERATOR Inhaled Oxygen Concentration - - Weight 113.4 kg (250 lb) 03/16/2024 2:2 5 PM BLUE LINE OPERATOR per patient. patient in wheel chair Height 175.3 cm (5' 9) 03/16/2024 2:25 PM BLUE LINE OPERATOR Body Mass Index 36.92 03/16/2024 2:25 PM BLUE LINE OPERATOR Plan of Treatment Upcoming Encounters Date Type Department Care Team (Late st Contact Info) Description 05/03/2024 8:00 AM BLUE LINE OPERATOR [place] [address] Flaca Rascon, RN [phone] (Work) 05/10/2024 8:00 AM BLUE LINE OPERATOR Home Care Visit [facility] [address] [place] [address] [place] [address] Flaca Rascon, RN [phone] (Work) 05/17/2024 8:00 AM BLUE LINE OPERATOR Home Care Visit [facility] Care [address] [place] [address] Flaca Rascon, RN [phone] (Work) 05/24/2024 8:00 AM BLUE LINE OPERATOR Home Care Visit [facility] Care [address] [place] [address] [place] [address] Flaca Rascon, RN [phone] (Work) Health Maintenance Due Date Last Done Comments Colorectal Cancer Screening Colonoscopy (10 Years) 1959 DTaP, Tdap and Td Vaccines (1 - Tdap) 1978 Zoster Vaccines (1 of 2) 2009 COVID-19 Vaccine (3 - season) 2023 10/02/2020, 09/05/2020 Influenza Adult (#1) 2023 Pneumococcal Vaccine: 65+ Years (2 of 2 - PPSV23 or PCV20) 02/26/2024 12/12/2018 PHQ-2 (Physician [place]) 03/29/2024 03/16/2024 RSV Immunization or 60+ Years (1 - 1-dose 75+ series) 2034 Pneumococcal Vaccine: Pediatrics (0 to 5 Years) and At-Risk Patients (6 to 64 Years) Aged Out 12/12/2018 No longer eligible based on patient's age to complete this topic AAA SCREENING Completed 10/20/2023, 09/27, 05/22/2023, Additional history exists Hepatitis C Completed 01/30/2024 Meningococcal B Vaccine Aged Out No l onger eligible based on patient's age to complete this topic Meningococcal Vaccine Aged Out No suzy tramaine eligible based on patient's age to complete this topic RSV Immunizations Under 20 Months Aged Out No longer eligible based on patient's age to complete this topic Procedures Procedure Name Priority Date/Time Associated Diagnosis Comments MG/PCCL UDS SCREEN Routine 03/16/2024 4: 27 PM BLUE LINE OPERATOR Other chronic pain Controlled substance agreement signed COMPREHENSIVE METABOLIC PANEL Routine 02/23/2024 9:45 AM BLUE LINE OPERATOR Osteomyelitis (CMS/HCC HHS/HCC) C-REACTIVE PROTEIN Routine 02/23/2024 9: 45 AM BLUE LINE OPERATOR Osteomyelitis (CMS/HCC HHS/HCC) VANCOMYCIN TROUGH Routine 02/23/2024 9:4 5 AM BLUE LINE OPERATOR Osteomyelitis (CMS/HCC HHS/HCC) CBC W/DIFF AUTOMATED Routine 02/23/2024 9:45 AM BLUE LINE OPERATOR Osteomyelitis (CMS/HCC HHS/HCC) COMPREHENSIVE METABOLIC PANEL Routine 02/16/2024 9:30 AM BLUE LINE OPERATOR Sacral osteomyelitis (CMS/HCC HHS/HCC) CBC W/DIFF AUTOMATED Routine 02/16/2024 9:30 AM BLUE LINE OPERATOR Sacral osteomyelitis (CMS/HCC HHS/HCC) VANCOMYCIN TROUGH Routine 02/16/2024 9:3 0 AM BLUE LINE OPERATOR Sacral osteomyelitis (CMS/HCC HHS/HCC) C-REACTIVE PROTEIN Routine 02/16/2024 9: 30 AM BLUE LINE OPERATOR Sacral osteomyelitis (CMS/HCC HHS/HCC) C-REACTIVE PROTEIN Routine 02/09/2024 10 :17 AM BLUE LINE OPERATOR Osteomyelitis (CMS/HCC HHS/HCC) CBC W/DIFF AUTOMATED Routine 02/09/2024 10:14 AM BLUE LINE OPERATOR Osteomyelitis (CMS/HCC HHS/HCC) VANCOMYCIN TROUGH Routine 02/09/2024 10: 14 AM BLUE LINE OPERATOR Osteomyelitis (CMS/HCC HHS/HCC) COMPREHENSIVE METABOLIC PANEL Routine 02/09/2024 10:13 AM BLUE LINE OPERATOR Osteomyelitis (CMS/HCC HHS/HCC) from Last 3 Months Results * MG/PCCL UDS SCREEN (03/16/2024 4:27 PM BLUE LINE OPERATOR) FENTANYL SCREEN (U) NEGATIVE <0.5 ng/mL [facility] Comment: See Note A See Note A MORPHINE (U) NEGATIVE <10 ng/mL [facility] Comment: See Note A See Note A AMPHETAMINES PM NEGATIVE <500 ng/mL [facility] Comment: See Note A See Note A BARBITURATES PM (U) NEGATIVE <300 ng/mL [facility] Comment: See Note A See Note A BENZODIAZEPINES PM (U) NEGATIVE <100 ng/mL [facility] Comment: See Note A See Note A COCAINE METABOLITE PM (U) NEGATIVE <150 ng/mL [facility] Comment: See Note A See Note A MARIJUANA METABOLITE PM (U) NEGATIVE <20 ng/mL [facility] Comment: See Note A See Note A METHADONE PM (U) NEGATIVE <100 ng/mL [facility] Comment: See Note A See Note A OPIATES PM (U) NEGATIVE <100 ng/mL [facility] Comment: See Note A See Note A OXYCODONE PM (U) NEGATIVE <100 ng/mL [facility] Comment: See Note A See Note A CREATININE RANDOM (U) 74.1 > or = 20.0 mg/dL [facility] pH PM (U) 8.4 4.5 - 9.0 [facility] OXIDANT NEGATIVE <200 mcg/mL [facility] NOTE [facility] Comment: This drug testing is for medical treatment only. Analysis was performed as non-forensic testing and these results should be used only by healthcare providers to render diagnosis or treatment, or to monitor progress of medical conditions. Note A: The results are presumptive; based only on screening methods, and they have not been confirmed by a definitive method. LDT Notes: Confirmation tests were developed and their analytical performance characteristics have been determined by [facility]. It has not been cleared or approved by the FDA. This assay has been validated pursuant to the CLIA regulations and is used for clinical purposes. Healthcare Providers needing Interpretation assistance, please contact us at [phone] ( ) M-F, 8am to 10pm EST URINE SPECIMEN / Unknown 03/16/2024 4:27 PM BLUE LINE OPERATOR 03/17/2024 3:32 PM BLUE LINE OPERATOR Narrative Resulting Agency Comment Performing Organization Information: ?Site ID: ?[facility] ?Address: [address] [place] [address] ?Director: Juan Skinner ?Site ID: [place] ?Name: [facility] ?Address: [id number] [place] [id number] ?Director: Yonathan Ortiz MD us Cora Whipple DO URINE ORDERABLES Final Result Performing Organization Address City/[facility]/ZIP Co de Phone Number [facility] [place] [address] [place] [address] [facility] [address] [address] [place] [address], * VANCOMYCIN TROUGH (02/23/2024 9:45 AM BLUE LINE OPERATOR) Only the most recent of3 resultswithin the time period is included. Pathologist [facility] VANCOMYCIN TROUGH 17.5 10 - 20 MCG/ML 02/23/2024 6:48 PM BLUE LINE OPERATOR [facility] Comment: ? THERAPEUTIC: 10.0-20.0 ? TOXIC: >25.0 02/23/2024 9:45 AM BLUE LINE OPERATOR us Pino Shah MD LABORATORY Final Resul t [facility] [address] [place] [address], * (ABNORMAL) COMPREHENSIVE METABOLIC PANEL (02/23/2024 9:45 AM BLUE LINE OPERATOR) Only the most recent of3 resultswithin the time period is included. [facility] GLUCOSE 95 70 - 99 MG/DL 02/23/2024 4:27 PM [facility] BUN 17 7 - 18 MG/DL 02/23/2024 4:27 PM [facility] CREATININE S/P/B 1.29(H) 0.50 - 1.20 MG/DL 02/23/2024 4:27 PM [facility] SODIUM S/P/B 139 136 - 145 MMOL/L 02/23/2024 4:27 PM [facility] POTASSIUM S/P/B 4.5 3.5 - 5.1 MMOL/L 02/23/2024 4:27 PM [facility] CHLORIDE S/P/B 102 100 - 108 MMOL/L 02/23/2024 4:27 PM [facility] CO2 26.3 21.0 - 32.0 MMOL/L 02/23/2024 4:27 PM [facility] CALCIUM S/P/B 8.9 8.5 - 10.1 MG/DL 02/23/2024 4:27 PM [facility] BILIRUBIN TOTAL S/P/B 0.6 0.2 - 1.2 MG/DL 02/23/2024 4:27 PM [facility] Comment: THIS ASSAY IS NOT RECOMMENDED FOR PATIENTS UNDERGOING TREATMENT WITH ELTROMBOPAG DUE TO THE POTENTIAL FOR FALSELY ELEVATED RESULTS. TOTAL PROTEIN S/P/B 7.3 6.4 - 8.2 G/DL 02/23/2024 4:27 PM [facility] ALBUMIN S/P/B 2.7(L) 3.4 - 5.0 G/DL 02/23/2024 4:27 PM [facility] AST 17 15 - 37 U/L 02/23/2024 4:27 PM [facility] ALT 15(L) 16 - 60 U/L 02/23/2024 4:27 PM [facility] ALKALINE PHOSPHATASE S/P/B 122 50 - 136 U/L 02/23/2024 4:27 PM [facility] ANION GAP 10.7 5.0 - 15.0 MMOL/L 02/23/2024 4:27 PM [facility] BUN CREATININE RATIO 13.2 6 - 26 02/23/2024 4:27 PM [facility] A/G RATIO 0.6(L) 1.0 - 2.5 RATIO 02/23/2024 4:27 PM [facility] GFR ESTIMATE 62(L) >90 ML/MIN/1.7 3 M2 02/23/2024 4:27 PM [facility] Comment: NOTE: eGFR is not calculated for patients <18 years of age. This is an estimated GFR calculation using the new CKD EPI creatinine equation without race and so does not require a correction factor for race. This estimated GFR should not be used for calculating drug doses. 02/23/2024 9:45 AM BLUE LINE OPERATOR us Pino Shah MD LABORATORY Final Resul t [facility] [address] [place] [id number], [place] * (ABNORMAL) C-REACTIVE PROTEIN (02/23/2024 9:45 AM BLUE LINE OPERATOR) Only the most recent of3 resultswithin the time period is included. C-REACTIVE PROTEIN 10.10(H) <0.29 mg/dL 02/23/2024 7:54 PM BLUE LINE OPERATOR [facility] 02/23/2024 9:45 AM BLUE LINE OPERATOR us Pino Shah MD LABORATORY Final Resul t [facility] [address] [place] [address], [place] [phone] * (ABNORMAL) CBC W/DIFF AUTOMATED (02/23/2024 9:45 AM BLUE LINE OPERATOR) Only the most recent of3 resultswithin the time period is included. [facility] Signature WBC 9.07 4.50 - 11.00 x10'3/uL 02/23/2024 3:59 PM [facility] RBC 4.28(L) 4.50 - 5.90 x10'6/uL 02/23/2024 3:59 PM [facility] HGB 11.8(L) 14.0 - 18.0 G/DL 02/23/2024 3:59 PM [facility] HCT 36.3(L) 43.0 - 54.0 % 02/23/2024 3:59 PM [facility] MCV 84.8 80.0 - 100.0 FL 02/23/2024 3:59 PM [facility] MCH 27.6 26.0 - 34.0 PG 02/23/2024 3:59 PM [facility] MCHC 32.5 31.0 - 37.0 G/DL 02/23/2024 3:59 PM [facility] RDW 16.0(H) 11.6 - 14.8 % 02/23/2024 3:59 PM [facility] PLT 288 130 - 400 x10'3/uL 02/23/2024 3:59 PM [facility] MPV 10.3 7.0 - 12.0 FL 02/23/2024 3:59 PM [facility] CBC COMMENT AUTOMATED RBC MORPHOLOGY AND PLATELET EVALUATION NORMAL 02/23/2024 3:59 PM [facility] NEUTROPHILS % 67.0 40.0 - 74.0 % 02/23/2024 3:59 PM [facility] LYMPHOCYTES % 13.2(L) 14.0 - 46.0 % 02/23/2024 3:59 PM [facility] MONOCYTES % 8.2 4.0 - 13.0 % 02/23/2024 3:59 PM BLUE LINE OPERATOR [facility] EOSINOPHILS 11.0(H) 0.0 - 7.0 % 02/23/2024 3:59 PM BLUE LINE OPERATOR [facility] BASOPHILS 0.4 0.0 - 3.0 % 02/23/2024 3:59 PM BLUE LINE OPERATOR [facility] IMMATURE GRANS % 0.2 0.0 - 0.43 % 02/23/2024 3:59 PM BLUE LINE OPERATOR [facility] NRBC % 0.0 % 02/23/2024 3:59 PM BLUE LINE OPERATOR [facility]. NEUTROPHILS TOTAL 6.07 1.69 - 7.81 x10'3/uL 02/23/2024 3:59 PM BLUE LINE OPERATOR [facility] ABS. LYMPHOCYTES 1.20 0.21 - 5.42 x10'3/uL 02/23/2024 3:59 PM BLUE LINE OPERATOR [facility] ABS. MONOCYTES 0.74 0.04 - 1.37 x10'3/uL 02/23/2024 3:59 PM BLUE LINE OPERATOR [facility] ABS. EOSINOPHILS 1.00(H) 0.00 - 0.68 x10'3/uL 02/23/2024 3:59 PM BLUE LINE OPERATOR [facility] ABS. BASOPHILS 0.04 0.00 - 0.08 x10'3/uL 02/23/2024 3:59 PM BLUE LINE OPERATOR [facility] ABS. IMMATURE GRANULOCYTES 0.02 0.00 - 0.06 x10'3/uL 02/23/2024 3:59 PM BLUE LINE OPERATOR [facility] ABS. NUCLEATED RBC'S 0.00 0.00 - 0.01 x10'3/uL 02/23/2024 3:59 PM BLUE LINE OPERATOR [facility] 02/23/2024 9:45 AM BLUE LINE OPERATOR us Pino Shah MD LABORATORY Final Resul t [facility] [address] [id number], from Last 3 Months Insurance [facility] MEDICARE Advance Directives * DNR (Latest Code Status on File) Date Activated Date Inactivated Comments 04/03/2024 11:05 PM Care Teams Automatic Beading Lathe Operator Relationship Specialty Start Date End Date Cora Whipple DO [address] [place] [address] PCP - General FAMILY PRACTICE 03/16/24
--- OUTSIDE RECORDS SUMMARY | 2024-04-25 19:18 | XMS_ITS | Referral Summary ---
Author Organization [facility] Medical [facility] 2 Address [address] [place] [address] Care Team Providers Care Ophthalmic Surgeon Name Role Phone Evelio Mckee MD Primary Care Provider [phone] Allergies Active Allergy Reactions Criticality Noted Date Comments Adhesive Tape-Silicones Allopurinol Unknown 05/23/2019 Cyclobenzaprine Unknown Diclofenac Hives Medium 09/07/2019 Carbamazepine Unknown 05/23/2019 Medications simvastatin (ZOCOR) 20 mg tablet Take 1 tablet (20 mg total) by mouth nightly Active timolol (TIMOPTIC) 0.5 % ophthalmic solution Administer 1 drop into both eyes every morning. 15 mL 11 9 Active Additional Information Patient taking differently:1 drop each eye2 times daily, Indications: ocular hypertension, Informant: Self, Reported on 11/20/2022 traZODone (DESYREL) 150 mg tablet Take 1 tablet (150 mg total) by mouth nightly 8 Active PARoxetine (PAXIL) 30 mg tablet Take 1 tablet (30 mg total) by mouth nightly 8 Active cholecalciferol (VITAMIN D-3) 2000 unit capsule Take 1 capsule (2,000 Units total) by mouth every morning Active cyclobenzaprine (FLEXERIL) 10 mg tablet Take 1 tablet (10 mg total) by mouth 3 (three) times a day 3 Active tamsulosin (FLOMAX) 0.4 mg extended release capsule Take 1 capsule (0.4 mg total) by mouth nightly [address] (PROTONIX) 40 mg EC tablet Take 1 tablet (40 mg total) by mouth daily Active guaiFENesin ER (MUCINEX) 600 mg 12 hr tablet Take 2 tablets (1,200 mg total) by mouth 2 (two) times a day as needed for cough 4 Active pregabalin (LYRICA) 150 mg capsuleIndicatio ns:Neuropathic Pain Associated with Spinal Cord Injury Take 1 capsule (150 mg total) by mouth 3 (three) times a day 90 capsule 4 Active acetaminophen (TYLENOL) 325 mg tabletIndication s:Pain Take 2 tablets (650 mg total) by mouth every 4 (four) hours as needed for pain 4 Active ALPRAZolam (XANAX) 0.25 mg tablet Take 1 tablet (0.25 mg total) by mouth 3 (three) times a day as needed for anxiety 30 tablet 4 Active ascorbic acid (VITAMIN C) 500 mg tablet,chewable Take 1 tablet/chew tab (500 mg total) by mouth 2 (two) times a day 4 Active enoxaparin (LOVENOX) 40 mg/0.4 mL syringeIndicatio ns:Deep Vein Thrombosis Prevention Inject 0.4 mL (40 mg total) under the skin daily 4 Active multivitamin with folic acid 400 mcg tablet Take 1 tablet by mouth daily 4 05/30/19 25 Active oxyCODONE (ROXICODONE) 5 mg immediate release tabletIndication s:Pain Take 1 tablet (5 mg total) by mouth every 4 (four) hours as needed for pain 20 tablet 4 Active polyvinyl alcohol-povidone (REFRESH CLASSIC) 1.4-0.6 % dropperette Administer 1 drop into the left eye 4 (four) times a day as needed for dry eyes (burning/stabbi ng pain) 4 Active ramelteon (ROZEREM) 8 mg tabletIndication s:Sleep-Onset Insomnia Take 1 tablet (8 mg total) by mouth nightly as needed for sleep 4 05/30/19 25 Active zinc sulfate (ZINCATE) 50 mg zinc (220 mg) capsule Take 1 capsule (220 mg total) by mouth daily 30 capsule 11 4 05/30/19 25 Active triamcinolone (KENALOG) 0.1 % ointment Active ciprofloxacin (CIPRO) 500 mg tablet 4 Active escitalopram (LEXAPRO) 10 mg tablet Take 1 tablet every day by oral route. 3 Active hydrALAZINE (APRESOLINE) 25 mg tablet Take 1 tablet twice a day by oral route. 3 Active LORazepam (ATIVAN) 0.5 mg tablet 0 4 Active methocarbamoL (ROBAXIN) 750 mg tablet 99 4 Active metroNIDAZOLE (FLAGYL) 500 mg tablet 4 Active multivit gttncrue-ewdv-ZP -calcium (Thera M Plus, ferrous fumarat,) 9 mg iron-400 mcg tablet Take 1 tablet by mouth daily 3 Active multivit kgtdrtse-sfam-BQ -calcium (Thera M Plus, ferrous fumarat,) 9 mg iron-400 mcg tablet Take 1 tablet by mouth daily 3 Active oxyCODONE-acetam inophen (PERCOCET) 10-325 mg per tablet 4 Active ALPRAZolam (XANAX) 0.5 mg tablet 0 4 Active oxyCODONE (ROXICODONE) 10 mg tablet 0 4 Active oxyCODONE (OXY-IR) 5 mg capsule 0 4 Active Active Problems Problem Noted Date Diagnosed Date At high risk for malnutrition 05/24/2023 Assessment & Plan (05/30/2023 10:17 AM RESEARCH PHYSICIST): 05/24 reported regular diet @ OSH, resume post-op + supplements + vitamins; weekly nutrition labs while inpatient 05/28 Encouraging a good diet and nutritional supplements. Nutrition labs pending for the AM. 05/29 Encouraging good diet and taking in nutritional supplements with each meal to aide in wound healing. LABS 05/22 Albumin 2.9 Prealbumin 12 05/28 Albumin 2.8 Prealbumin 13 Discharge planning issues 05/23/2023 Assessment & Plan (05/30/2023 10:20 AM RESEARCH PHYSICIST): Will require sacral wound debridement and very deconditioned. Mostly bed bound for the past month. PT/OT ordered. Likely need placement at discharge. 05/24 OR today, return to [facility]ACH end of week pending wound coverage plan 05/25 PRS for soft tissue coverage vs return to [facility]ACH pending PRS recs 05/26 PRS planning flap next week, ADD to return to LTACH ~2w PRS unable to flap this admission, plan for MSK bone bx today, ACCS debridement tomorrow, discharge to [facility]ACH vs Wednesday then return with PRS for elective flap when schedule permits 05/28 PRS will call [facility] to arrange transfer back to [facility] for flap coverage. Confirmed with PRS team prior to discharge. 05/29 Discharging to [facility] today and will return in a few weeks for flap coverage per PRS team. Sacral decubitus ulcer, stage IV 05/22/2023 Assessment & Plan (05/30/2023 10:24 AM RESEARCH PHYSICIST): CT abdomen/pelvis: Large sacral decubitus ulcer with overlying cellulitis in the pre-coccygeal/presacral soft tissues. The ulcer contains gas with subcutaneous tract extending to the skin and a linear tract extending to the puborectalis muscle. There is generalized presacral edema/stranding without organized drainable intra- abdominal fluid collection. Mild sclerosis of the coccyx is indeterminate but may represent chronic osteomyelitis. - Local wound care santyl and dakin's solution BID x3 days - IV antibiotics cefe/flagyl/vanc - Likely needs OR debridement- see new pics - air bed, off loading 05/24 AFVSS, OR today for wound debridement, continue broad abx, +stoma output, will discuss fci plan for coverage after debridement --- 05/24 OR ([facility]): sacral wound debridement, gutierrez exchange --- Wound measurements before debridement: 14 x 13 x 2.5cm --- Wound measurements after debridement: 14 x 13 x 3.5 05/25 AFVSS, s/p debridement, local wound care as ordered, vanc held for trough, continue abx otherwise, PRS consulted for evaluation for soft tissue coverage 05/26 AFVSS, PRS recs: ACCS to debride one additional time then plan flap this admission, MSK-IR consulted for sacral and coccyx bone biopsy, ID consulted for abx management per PRS recs; vac to wound pending MSK-IR bx, continue sand bed AFVSS, MSK-IR bone bx today, ACCS sacral debridement tomorrow, PRS flap elective in several weeks when schedule permits, abx per ID, vanc remains on hold until trough <15, sand bed 05/27 HDS, OR today for debridement of sacral wound. Remains on IV vancomycin, cefepime and flagyl per ID plan. Will discuss with PRS timing for flap in the future. 05/28 Sacral wound beefy and clean, santyl and Vashe wet to dry BID. Per ID his antibiotics are completed and he should be off antibiotics until the time of the flap coverage. To remain on antibiotics would risk resistance and risk of c-diff. Colostomy with stool in bag. Tolerating a diet. Gutierrez catheter remains in place duet to urinary retention. 05/29 Sacral wound beefy and clean. Santyl to base and Vashe wet to dry dressing BID. Antibiotics stopped. Pseudomonas grew from sacral wound culture from 05/27- spoke to ID today and he said, no antibiotics and this has already been treated. Colostomy with stool and air in bag. Tolerating a diet and encouraged to drink supplements. Gutierrez to gravity with clear yellow urine. -PRS team to call [facility] and give them the date and time of his flap surgery -[facility] was given the [facility] office number for a wound follow up if needed prior to the surgery or if the surgery gets postponed. Antibiotics; Cefepime 05/23-05/28 Flagyl 05/23-05/28 Vancomycin 05/23-05/24 then held for trough-resumed 05/27-05/28 Cultures: 05/23 Blood cx: NG final Buttock bx: pseudomonas-updated 05/28 1500 (I spoke with ID team and they said no antibiotics, this was already treated) Pathology Bone biopsy: pending Hyponatremia 03/23/2023 BOAZ (acute kidney injury) 03/23/2023 CKD (chronic kidney disease) 03/23/2023 Assessment & Plan (05/30/2023 10:19 AM RESEARCH PHYSICIST): 05/24 baseline Cr unknown, noted BOAZ during last hospital stay, no sCr NL, strict I&O, daily labs 05/25-05/27 sCr NL, UOP adequate 05/28 sCr 1.1 which has been baseline for this admission. UOP 2375 ml. 05/29 sCr 1.0 day of discharge with UOP 1775 ml. Hypoalbuminemia 03/23/2023 Elevated brain natriuretic peptide (BNP) level 1 05/24/2022 Severe protein-calorie malnutrition (CMS/HCC) Frequent falls 03/22/2023 Nicotine abuse 03/22/2023 Alcohol abuse 03/22/2023 Overdose 03/08/2023 Anemia 02/08/2023 Iron deficiency 02/08/2023 Retention of urine 01/27/2023 Assessment & Plan (05/28/2023 10:55 AM RESEARCH PHYSICIST): -per Urology consult 02/2023 urinary retention is multifactorial including pain meds, immobility, possible enlarged prostate. Urology recommended flomax and could consider finasteride if needed. Gutierrez was placed at this time and he was supposed to follow up but never did. He was hospitalized in March at OSH but kept gutierrez the entire admission and discharge with gutierrez. -Flomax started -continue gutierrez -CT shows diffusely thickened bladder, mild prominence of L distal ureter with trace periureteral stranding, improved from 03/23/23, no obstructing lesions. -consider Urology consult 05/24 patient reports gutierrez has never been changed - plan to replace in OR today, patient wants to move towards removal -- will discuss pending ease of replacement in OR 05/25 gutierrez changed in OR 05/24, change monthly, plan for outpatient Urology evaluation for urodynamics iso myelopathy Arthralgia of right knee 01/27/2023 Pain of left hip joint 01/27/2023 Cervical myelopathy 12/16/2022 Diabetic peripheral neuropathy (CMS/HCC) 023 Mixed anxiety and depressive disorder 10/30/2022 Assessment & Plan (05/24/2023 11:39 AM RESEARCH PHYSICIST): - home regimen: paxil, trazodone, xanax (continued) Cervical disc disorder with myelopathy of mid-cervical region 10/14/2022 Nocturia 10/07/2022 Acute urinary tract infection 09/14/2022 Symptoms involving urinary system 09/11/2022 Dystrophia unguium 11/23/2021 08/20/2022 Open wound of lower leg 08/27/2021 08/21/19 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 Oral lesion 01/01/2021 Bilateral leg edema 11/21/2019 08/20/2022 Eczema 11/21/2019 08/20/2022 Assessment & Plan (05/24/2023 11:50 AM RESEARCH PHYSICIST): - home regimen: dupixent (held iso wound debridements) Chronic low back pain 11/10/2018 Assessment & Plan (05/30/2023 10:19 AM RESEARCH PHYSICIST): - home regimen: flexeril, lyrica (continued) - added oxycodone 5 mg Q 4 hr PRN 05/24-3 pain controlled 05/29 Pain well controlled on regimen of oxycodone 5 mg Q 4 hr PRN, flexeril 10 mg TID, pregabalin 150 mg TID and alprazolam 0.25 mg TID PRN. Cervical spondylosis with myelopathy 08/09/2018 Exogenous obesity 08/09/2018 Anxiety 05/04/2018 Blindness of one eye 05/04/2018 Hypercholesterolemia 05/04/2018 Impairment of balance 05/04/2018 Neuropathy 05/03/2018 Age-related nuclear cataract of right eye 2017 Primary open angle glaucoma (POAG) of both eyes, mild stage 03/09/2016 Assessment & Plan (05/24/2023 11:48 AM RESEARCH PHYSICIST): - home regimen: timolol (continued) --- avoid anticholinergics Vitreous degeneration 10/28/2015 Vitreomacular adhesion of both eyes 10/28/2015 Cystoid macular edema 08/20/2015 Pseudophakia of left eye 11/24/2011 Hypertensive disorder 07/03/2010 Assessment & Plan (05/30/2023 10:27 AM RESEARCH PHYSICIST): - home regimen: Norvasc (held) 3/ Continuing to hold norvasc for SBP < 110 at times. If he becomes increasingly hypertensive his Norvasc can be resumed. Epilepsy 07/03/2010 Assessment & Plan (05/29/2023 2:15 PM RESEARCH PHYSICIST): Dx added to problem list 2010 Reports his seizure was > 10 years ago and related to a medication that he was given. He is currently not on medication and has never been on medication. 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 No 05/25/2023 Social Connection and Isolat ion Panel [NHANES] Answer Date Recorded In a typical week, how many times do you talk on the phone with family, friends, or neighbors? More than three times a week 05/25/2023 How often do you get togethe r with friends or relatives? Once a week 05/25/2023 How often do you attend chur ch or advent services? Never 05/25/2023 Do you belong to any clubs o r organizations such as yazdanism groups, unions, fraternal or athletic groups, or school groups? No 05/25/2023 How often do you attend meet ings of the clubs or organizations you belong to? Never 05/25/2023 Are you , , di vorced, , never , or living with a partner? 05/25/2023 AUDIT-C Answer Date Recorded Q1: How often do you have a drink containing alcohol? Never 05/24/2023 Q2: How many drinks containi ng alcohol do you have on a typical day when you are drinking? Patient does not drink Q3: How often do you have si x or more drinks on one occasion? Never 05/24/2023 Overall Financial Resource Strain (CARDIA) Answe r Date Recorded How hard is it for you to pa y for the very basics like food, housing, medical care, and heating? Very hard 05/25/2023 PHQ-2 Answer Date Recorded PHQ-2 Total Score (If total score is 3 or more points, staff should administer the PHQ-9) 0 05/25/2023 Hunger Vital Sign Answer Date Recorded Within the past 12 months, y ou worried that your food would run out before you got the money to buy more. Never true 05/25/19 24 Within the past 12 months, t he food you bought just didn't last and you didn't have money to get more. Never true 05/25/2023 PRAPARE - Transportation Answer Date Re corded In the past 12 months, has l ack of transportation kept you from medical appointments or from getting medications? No 04/30 In the past 12 months, has l ack of transportation kept you from meetings, work, or from getting things needed for daily living? No 05/25/2023 Housing Stability Vital Sign Answer Ok e Recorded In the last 12 months, was t here a time when you were not able to pay the mortgage or rent on time? No 05/25/2023 In the last 12 months, how many places have you lived? 1 05/25/2023 In the last 12 months, was t here a time when you did not have a steady place to sleep or slept in a chcf (including now)? No 05/25/2023 Personal Safety Answer Date Recorded Have you ever been in or are you currently in a harmful physical or emotional relationship or is someone making you feel afraid or unsafe? Denies 05/28/2023 Education Answer Date Recorded What is the highest level of school you have completed or the highest degree you have received? High school graduate 03/23/2023 Sex and Gender Information Value Date Recorded Sex Assigned at Not on file Legal Sex Male 12:42 AM RESEARCH PHYSICIST Gender Identity Not on file Sexual Orientation Not on file Last Filed Vital Signs Vital Sign Reading Time Taken Comments Blood Pressure 134/83 08/04/2023 3:19 PM CDT Pulse 74 08/04/2023 3:19 PM CDT Temperature 36.3 ??C (97.3 ??F) 08/04/2023 3:19 PM CD T Respiratory Rate 20 08/04/2023 3:19 PM CDT Oxygen Saturation 96% 08/04/2023 3:19 PM CDT Inhaled Oxygen Concentration - - Weight 115.1 kg (253 lb 12 oz) 05/23/2023 1:55 A M RESEARCH PHYSICIST Height 175.3 cm (5' 9.02) 05/23/2023 1:55 AM CS T Body Mass Index 37.45 05/23/2023 1:55 AM RESEARCH PHYSICIST Plan of Treatment Not on file Medical Devices Implanted Type Area Transplant Nurse Practitioner Device Identifier Shelf Expiration Date Model / Serial / Lot Allosource Canpac Nonpurge Frozen Graft 50cc Bone [id number] - [id number] Implanted:Qty: 1 on 12/16/2022 by Jcarlos Guy MD PhD at [facility] N/A: Spine Cervical Allosource 08/06/2027 [id number] / / [id number] [employer] Allograft Bone Putty 2.5cc 700-025 - [id number] Implanted:Qty: 1 on 12/16/2022 by Jcarlos Guy MD PhD at [facility] N/A: Spine Cervical [employer] [id number] 2025 700-025 / / [id number] [employer] Virage 3.5mm 14mm Polyaxial Spine Screw Bone Nonsterile 07.53037.007 - [id number] Implanted:Qty: 5 on 12/16/2022 by Jcarlos Guy MD PhD at [facility] N/A: Spine Cervical [employer] [id number] 07 / / [employer] Virage 5mm 25mm Self Tap Polyaxial Friction Fit Spine Screw Bone 07.64923.011 - [id number] Implanted:Qty: 2 on 12/16/2022 by Jcarlos Guy MD PhD at [facility] N/A: Spine Cervical [employer] 07.80650.0 11 / / [employer] Virage Closure Top Lid Sterilization Nonsterile Disposable Screw 07.47169.001 - [id number] Implanted:Qty: 7 on 12/16/2022 by Jcarlos Guy MD PhD at [facility] N/A: Spine Cervical [employer] 07.60931.0 01 / / [employer] Virage 3.5mm 60mm Jairon Spinal Titanium Nonsterile [id number] - [id number] Implanted:Qty: 2 on 12/16/2022 by Jcarlos Guy MD PhD at [facility] N/A: Spine Cervical [employer] 07.63690.0 05 / / Procedures Procedure Name Priority Date/Time Associated Diagnosis Comments EGFR Routine 05/29/2023 9:[address] ABDOMEN PELVIS W CONTRAST ED Urgent/IP Urgent 05/22/2023 9:13 PM RESEARCH PHYSICIST HEMOGLOBIN A1C Routine 12/17/2022 11:24 PM CDT LIPID PANEL STAT 12/16/2022 7:57 AM CDT from Last 3 Months or Most Recently Relevant to Health Maintenance Results * eGFR (05/29/2023 9:13 PM RESEARCH PHYSICIST) [facility] eGFR 77 >=60 mL/min/1. 73 m2 [facility] Comment: Interpretive Data Reference Interval Normal ?>/= 90 mL/min/1.73m2 Mildly decreased* ? 60 - 89 mL/min/1.73m2 Mildly to moderately decreased ?45 - 59 mL/min/1.73m2 Moderately to severely decreased ??30 - 44 mL/min/1.73m2 Severely decreased ?15 - 29 mL/min/1.73m2 Kidney Failure ?< 15 ??mL/min/1.73m2 *Relative to young adult level Estimated glomerular filtration rate is determined by the 2020 CKD-EPI equation recommended by the National Kidney Foundation (A Unifying Approach to GFR Estimation: Recommendations of the NKF-ASK Task Force on Reassessing the Inclusion of Race in Diagnosing Kidney Disease, JASN 2020). The CKD-EPI equation should not be used for patients with unstable renal function and has not been validated in children and those over 70. Current interpretive data was last reviewed 2021. Blood 05/29/2023 9:13 PM RESEARCH PHYSICIST 05/29/2023 10:29 PM RESEARCH PHYSICIST us Ingris Hoff NP LAB BLOOD ORDERABLES Final Result [facility] Department [place] [address] * CT Abdomen Pelvis W Contrast (05/22/2023 9:13 PM RESEARCH PHYSICIST) Anatomical Region Laterality Modality Body N/A Computed Tomogra phy 05/22/2023 9:30 PM RESEARCH PHYSICIST Impressions 05/23/2023 9:37 AM RESEARCH PHYSICIST 1. Large sacral decubitus ulcer with overlying cellulitis in the pre-coccygeal/presacral soft tissues, as detailed above. The ulcer contains gas with subcutaneous tract extending to the skin and a linear tract extending to the puborectalis muscle. ??There is generalized presacral edema/stranding without organized drainable intra-abdominal fluid collection. ?? 2. Mild sclerosis of the coccyx is indeterminate but may represent chronic osteomyelitis. 3. Increasing partially imaged irregular shaped opacity in the right lung base most likely representing scarring/linear atelectasis versus much less likely pulmonary infarction. 4. Thick-walled urinary bladder with mild left periureteral stranding is redemonstrated from 2022 CT and may represent chronic ascending urinary infection without obstructing stone. Dictated by: Velasquez Muhammad M.D. The radiology attending physician has personally reviewed this study, and had reviewed and/or edited this written report and agrees with it. Electronically signed by: Daniel Lewis M.D. Narrative 05/23/2023 9:37 AM RESEARCH PHYSICIST EXAMINATION: ??Computed tomography of the abdomen and pelvis with intravenous contrast HISTORY: Sacral decubitus ulcers TECHNIQUE: ??Transaxial computed tomographic images of the abdomen and pelvis were obtained with intravenous contrast according to the standard protocol after the uneventful administration of 100 mL Opti-Ray 350 intravenous contrast. COMPARISON: 03/23/2023 FINDINGS: There is a tiny wedge-shaped right lower lobe consolidation which is increased from immediate prior. ??There is thickening of the distal esophagus circumferentially which may represent esophagitis. No focal hepatic lesions. ??Decompressed gallbladder. ??Spleen adrenal glands and pancreas are normal. Cortical renal scarring bilaterally. ??There is no obstructing renal calculus. ??There is no hydronephrosis. ??Urinary bladder is diffusely thickened and decompressed. ??There is a Gutierrez catheter. ??There is mild prominence of the left distal ureter with trace periureteral stranding, improved from 03/23/2023. ??No obstructing lesion is seen. There is rectal wall thickening with presacral edema. ??Hyperdense material is noted in the rectosigmoid colon. ??The appendix is normal. There is a tiny hiatal hernia. ??There is no bowel obstruction. There is a left lower quadrant colostomy without evidence of parastomal hernia. ??Postsurgical changes of bowel resection. Multiple mildly prominent retroperitoneal lymph nodes and left greater than right prominent pelvic lymph nodes There is a large sacral decubitus ulcer measuring 9.4 x 3.4 x 8.4 cm (transverse by anteroposterior by craniocaudal). ??There is intermixed gas. ??There is some overlying subcutaneous stranding and a tract extending to to the skin in the left presacral region (series 2, image 167). ??The decubitus ulcer gas component appears to extend into the retrocrural rectal soft tissues (series 2, image 221) there is no organized drainable fluid collection. There is mild sclerosis involving the interspinous ligament near the sacrum. ??Lumbar fusion instrumentation is noted. ??No malignant appearing osseous lesions. ??There is diffuse fatty atrophy/subacute ischemia of the lower extremity vessels. ??Multiple venous collaterals are noted within the flanks. Procedure Note Daniel Lewis MD - 05/23/2023 EXAMINATION: Computed tomography of the abdomen and pelvis with intravenous contrast HISTORY: Sacral decubitus ulcers TECHNIQUE: Transaxial computed tomographic images of the abdomen and pelvis were obtained with intravenous contrast according to the standard protocol after the uneventful administration of 100 mL Opti-Ray 350 intravenous contrast. COMPARISON: 03/23/2023 FINDINGS: There is a tiny wedge-shaped right lower lobe consolidation which is increased from immediate prior. There is thickening of the distal esophagus circumferentially which may represent esophagitis. No focal hepatic lesions. Decompressed gallbladder. Spleen adrenal glands and pancreas are normal. Cortical renal scarring bilaterally. There is no obstructing renal calculus. There is no hydronephrosis. Urinary bladder is diffusely thickened and decompressed. There is a Gutierrez catheter. There is mild prominence of the left distal ureter with trace periureteral stranding, improved from 03/23/2023. No obstructing lesion is seen. There is rectal wall thickening with presacral edema. Hyperdense material is noted in the rectosigmoid colon. The appendix is normal. There is a tiny hiatal hernia. There is no bowel obstruction. There is a left lower quadrant colostomy without evidence of parastomal hernia. Postsurgical changes of bowel resection. Multiple mildly prominent retroperitoneal lymph nodes and left greater than right prominent pelvic lymph nodes There is a large sacral decubitus ulcer measuring 9.4 x 3.4 x 8.4 cm (transverse by anteroposterior by craniocaudal). There is intermixed gas. There is some overlying subcutaneous stranding and a tract extending to to the skin in the left presacral region (series 2, image 167). The decubitus ulcer gas component appears to extend into the retrocrural rectal soft tissues (series 2, image 221) there is no organized drainable fluid collection. There is mild sclerosis involving the interspinous ligament near the sacrum. Lumbar fusion instrumentation is noted. No malignant appearing osseous lesions. There is diffuse fatty atrophy/subacute ischemia of the lower extremity vessels. Multiple venous collaterals are noted within the flanks. IMPRESSION: 1. Large sacral decubitus ulcer with overlying cellulitis in the pre-coccygeal/presacral soft tissues, as detailed above. The ulcer contains gas with subcutaneous tract extending to the skin and a linear tract extending to the puborectalis muscle. There is generalized presacral edema/stranding without organized drainable intra-abdominal fluid collection. 2. Mild sclerosis of the coccyx is indeterminate but may represent chronic osteomyelitis. 3. Increasing partially imaged irregular shaped opacity in the right lung base most likely representing scarring/linear atelectasis versus much less likely pulmonary infarction. 4. Thick-walled urinary bladder with mild left periureteral stranding is redemonstrated from 2022 CT and may represent chronic ascending urinary infection without obstructing stone. Dictated by: Velasquez Muhammad M.D. The radiology attending physician has personally reviewed this study, and had reviewed and/or edited this written report and agrees with it. Electronically signed by: Daniel Lewis M.D. Sal Hernandez MD IMG CT PROCEDURES Fi nal Result * Hemoglobin A1c (12/17/2022 11:24 PM CDT) [facility] Hgb A1C 5.3 4.0 - 5.6 % [facility] Estimated Average Glucose 105 mg/dL [facility] Comment: The ADA recommends reporting an estimated Average Glucose (eAG) with all Hemoglobin A1c results using the equation derived from a study of 507 normal and diabetic adults. ??Minority populations were underrepresented and children were not included. ?? (Diabetes Care 2020; 43(S1): S66-S76). ??The eAG is not equivalent to a fasting glucose. Blood 12/17/2022 11:2 4 PM CDT 12/17/2022 11:57 PM CDT Jcarlos Guy MD PhD LAB BLOOD ORDERABLES Rhoda peralta Result [facility] Department [place] [address] * Lipid panel (12/16/2022 7:57 AM CDT) [facility] Cholesterol 143 30 - 199 mg/dL [facility] Comment: Interpretive Data Ages < or = 19 years ??Acceptable: ? <170 mg/dL ??Borderline high: ??170-199 mg/dL ??High: ? >or= 200 mg/dL Ages > or = 20 years ??Desirable: ?<200 mg/dL ??Borderline high: ??200-239 mg/dL ??High: ? >or= 240 mg/dL Literature References: 1. Expert Panel on Integrated Guidelines for Cardiovascular Health and Risk Reduction in Children and Adolescents. Pediatrics 2011;128:S213 2. NCEP Expert Panel. Circulation 2004;110:227 Current Interpretive Data was last revised on 2017. Triglycerides 104 <=149 mg/dL [facility] Comment: Interpretive Data Ages < or = 9 years ??Acceptable: ? <75 mg/dL ??Borderline high: ??75-99 mg/dL ??High: ? >or= 100 mg/dL Ages 10 to 20 years ??Acceptable: ? <90 mg/dL ??Borderline high: ??90-129 mg/dL ??High: ? >or= 130 mg/dL Ages > or = 20 years ??Desirable: ?<150 mg/dL ??Borderline high: ??150-199 mg/dL ??High: ? 200-499 mg/dL ?Very high: ?? >or= 499 mg/dL Literature References: 1. Expert Panel on Integrated Guidelines for Cardiovascular Health and Risk Reduction in Children and Adolescents. Pediatrics 2011;128:S213 2. NCEP Expert Panel. Circulation 2004;110:227 Current Interpretive Data was last revised on 2017. HDL 51 >=40 mg/dL [facility] Comment: Interpretive Data Ages < or = 19 years ??Acceptable: ? >45 mg/dL ??Borderline low: ?? 40-45 mg/dL ??Low: ? <40 mg/dL Ages > or = 20 years ??Desirable: ?>or= 60 mg/dL ??Low: ? <40 mg/dL Literature References: 1. Expert Panel on Integrated Guidelines for Cardiovascular Health and Risk Reduction in Children and Adolescents. Pediatrics 2011;128:S213 2. NCEP Expert Panel. Circulation 2004;110:227 Current Interpretive Data was last revised on 2017. LDL, calculated 71 <=129 mg/dL [facility] Comment: Interpretive Data Ages < or = 19 years ??Acceptable: ? <110 mg/dL ??Borderline high: ??110-129 mg/dL ??High: ?>or= 130 mg/dL Ages > or = 20 years ??Optimal: ? <100 mg/dL ??Near optimal: ?100-129 mg/dL ??Borderline high: ?? 130-159 mg/dL ??High: ?>160 mg/dL Literature References: 1. Expert Panel on Integrated Guidelines for Cardiovascular Health and Risk Reduction in Children and Adolescents. Pediatrics 2011;128:S213 2. NCEP Expert Panel. Circulation 2004;110:227 Current Interpretive Data was last revised on 2017. Non-HDL Cholesterol 92 mg/dL [facility] Comment: Interpretive Data Ages < or = 19 years ??Acceptable: ?<120 mg/dL ??Borderline high: ??120-144 mg/dL ??High: ?>145 mg/dL Ages > or = 20 years ??When triglycerides are >200 mg/dL, Non-HDL cholesterol is a secondary target of ? therapy with treatment goals that are 30 mg/dL greater than the LDL cholesterol target. ? Literature References: 1. Expert Panel on Integrated Guidelines for Cardiovascular Health and Risk Reduction in Children and Adolescents. Pediatrics 2011;128:S213 2. NCEP Expert Panel. Circulation 2004;110:227 Current Interpretive Data was last revised on 2017. Chol/HDL ratio 3 [facility] Blood 12/16/2022 7:57 AM CDT 12/16/2022 8:05 AM CDT Jcarlos Guy MD PhD LAB BLOOD ORDERABLES Rhoda peralta Result [facility] Department [place] [address] from Last 3 Months or Most Recently Relevant to Health Maintenance Additional Health Concerns Infection Onset Date Last Indicated MDR gram neg/ESBL 05/28/2023 05/28/2023 Insurance MEDICARE [facility] FEDERAL MEDICARE [facility] MEDICARE [email or web address] [facility] Advance Directives For more information, please contact: [phone] * Full Code (Latest Code Status on File) Date Activated Date Inactivated Comments 05/23/2023 3:17 AM 05/30/2023 9:30 PM * Full Code Date Activated Date Inactivated Comments 03/22/2023 1:39 PM 03/27/2023 1:01 AM * Full Code Date Activated Date Inactivated Comments 12/16/2022 8:09 PM 12/21/2022 9:49 PM Care Teams Ophthalmic Surgeon Relationship Specialty Start Date End Date Evelio Mckee MD [facility] [place] [address] PCP - General Family Medicine 03/09/19
--- OUTSIDE RECORDS SUMMARY | 2024-04-25 19:18 | XMS_ITS | Clinical Summary ---
Author Organization [facility] [address] [place] [address] Care Team Providers Care Tooling Supervisor Name Role Phone Evelio Mckee MD Primary Care Provider [phone] Allergies Active Allergy Reactions Criticality Noted Date [...] (FLAGYL) 500 mg tablet 4 Active multivit djsjylmp-pwqi-LF -calcium (Thera M Plus, ferrous fumarat,) 9 mg iron-400 mcg tablet Take 1 tablet by mouth daily 3 Active multivit bkhifdqm-fnkb-SH -calcium (Thera M Plus, ferrous fumarat,) 9 [...] 05/24/2023 Assessment & Plan (05/30/2023 10:17 AM CHAIR MENDER): 05/24 reported regular diet @ OSH, resume [...] 05/23/2023 Assessment & Plan (05/30/2023 10:20 AM CHAIR MENDER): Will require sacral wound debridement and very [...] when schedule permits 05/28 PRS will call [place] to arrange transfer back to [facility] for flap coverage. Confirmed with PRS team prior to discharge. 05/29 Discharging to [facility] today and will return in a few weeks for flap coverage per PRS team. Sacral decubitus ulcer, stage IV 05/22/2023 Assessment & Plan (05/30/2023 10:24 AM CHAIR MENDER): CT abdomen/pelvis: Large sacral decubitus ulcer with [...] continue broad abx, +stoma output, will discuss correction plan for coverage after debridement --- 05/24 [...] clear yellow urine. -PRS team to call [place] and give them the date and time of his flap surgery -[place] was given the [facility] office number for a wound follow up [...] 03/23/2023 Assessment & Plan (05/30/2023 10:19 AM CHAIR MENDER): 05/24 baseline Cr unknown, noted BOAZ during [...] 01/27/2023 Assessment & Plan (05/28/2023 10:55 AM CHAIR MENDER): -per Urology consult 02/2023 urinary retention is [...] 10/30/2022 Assessment & Plan (05/24/2023 11:39 AM CHAIR MENDER): - home regimen: paxil, trazodone, xanax (continued) [...] 08/20/2022 Assessment & Plan (05/24/2023 11:50 AM CHAIR MENDER): - home regimen: dupixent (held iso wound debridements) Chronic low back pain 11/10/2018 Assessment & Plan (05/30/2023 10:19 AM CHAIR MENDER): - home regimen: flexeril, lyrica (continued) - [...] 03/09/2016 Assessment & Plan (05/24/2023 11:48 AM CHAIR MENDER): - home regimen: timolol (continued) --- avoid anticholinergics Vitreous degeneration 10/28/2015 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 If he becomes increasingly hypertensive his Norvasc can be resumed. Epilepsy 07/03/2010 Assessment & Plan (05/29/2023 2:15 PM CHAIR MENDER): Dx added to problem list 2010 Reports his seizure was > 10 years ago and related to a medication that he was given. He is currently not on medication and has never been on medication. 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, unspecified eye Primary open-angle glaucoma, moderate stage COAG (chronic open-angle glaucoma), moderate stage - (Added by TW Conv) Anemia Anxiety Bleeding disorder (CMS/HCC) (HCC) Cervical disc disease Depression History of transfusion Hypertension Disc disorder of lumbar region Lumbar stenosis Osteoarthritis Rectal bleeding Seizures (HCC) Peptic ulceration Sleep apnea cpap used Dermatitis Tongue cancer (HCC) Family History Medical History Relation Name Comments Hypertension Brother Heart disease Father Cancer Maternal Grandfather Heart disease Maternal Grandmother Hypertension Maternal Grandmother Stroke Maternal Grandmother Cancer Paternal Grandfather Heart disease Paternal Grandfather Hypertension Paternal Grandfather Heart disease Paternal Grandmother Hypertension Paternal Grandmother Stroke Paternal Grandmother Relation Name Status Comments Brother Father Maternal Grandfather Maternal Grandmother Paternal Grandfather Paternal Grandmother Social History Tobacco Use Types Packs/Day Years Used Date Smoking Tobacco: Former Cigarettes - 1994 Smokeless Tobacco: Current Chew Comments:Pt would like nicot ine patch Alcohol Use Standard Drinks/Week Comments Not Currently 0 (1 standard drink = 0.6 oz pur e alcohol) [facility] Utilities Answer Date Recorded In the past 12 months has [employer], gas, oil, or water company threatened to shut off services in your [...] often do you attend chur ch or church services? Never 05/25/2023 Do you belong to any clubs o r organizations such as mu-ism groups, unions, fraternal or athletic groups, or [...] place to sleep or slept in a snf (including now)? No 05/25/2023 Personal Safety Answer [...] on file Legal Sex Male 12:42 AM CHAIR MENDER Gender Identity Not on file Sexual Orientation Not on file Obstetrics History Last Filed Vital Signs Vital Sign Reading Time Taken Comments Blood Pressure 134/83 08/04/2023 3:19 PM CDT Pulse 74 08/04/2023 3:19 PM CDT Temperature 36.3 ??C (97.3 ??F) 08/04/2023 3:19 PM CD T Respiratory Rate 20 08/04/2023 3:19 PM CDT Oxygen Saturation 96% 08/04/2023 3:19 PM CDT Inhaled Oxygen Concentration - - Weight 115.1 kg (253 lb 12 oz) 05/23/2023 1:55 A M CHAIR MENDER Height 175.3 cm (5' 9.02) 05/23/2023 1:55 AM CS T Body Mass Index 37.45 05/23/2023 1:55 AM CHAIR MENDER Plan of Treatment Health Maintenance Due Date Last Done Comments Albumin Creatinine Ratio, Urine 1959 Colon Cancer Screening-Colonoscopy 1959 Hepatitis C Screening 1959 Prostate Cancer Screening-PSA 1959 Foot Exam 1959 DTaP/Tdap/Td Vaccine (1 - Tdap) 1970 Hepatitis B Screening 1977 Zoster Vaccine (1 of 2) 2009 Pneumococcal vaccine 65+ (2 of 2 - PPSV23 or PCV20) 02/06/2019 12/12/2018 Dilated Eye Exam 03/30/2019 03/30/2018, 10/01/2017 Hemoglobin A1C 06/21/2023 12/21/2022, 12/17/2022 Covid-19 Vaccine (2023-2 5 season) 2023 10/02/2020, 09/05/2020 Influenza Vaccine (#1) 2023 Lipid Panel 12/17/2023 12/16/2022, 03/31/2022 Abdominal Aortic Aneurysm (A AA) Screen 02/26/2024 10/20/2023, 05/22/2023, 03/23/2023 Well Visit 65+ 02/26/2024 Depression Screening 05/22/2024 05/22/2023 eGFR 05/28/2024 05/29/2023, 03/0 03/2023, 05/27/2023, Additional history exists Fall Risk Assessment 05/29/2024 05/30/2023 Medical Devices Implanted Type Area Nut Sorter Device Identifier Shelf Expiration Date Model / Serial / Lot Allosource Canpac Nonpurge Frozen Graft 50cc Bone [id number] - [id number] Implanted:Qty: 1 on 12/16/2022 by Jcarlos Guy MD PhD at [facility] N/A: Spine Cervical Allosource 08/06/2027 [id number] / / [id number] [employer] Allograft Bone Putty 2.5cc 700-025 - [id number] Implanted:Qty: 1 on 12/16/2022 by Jcarlos Guy MD PhD at [facility] N/A: Spine Cervical [employer] [id number] 2025 700-025 / / [id number] [employer] Virage 3.5mm 14mm Polyaxial Spine Screw Bone Nonsterile 07.93308.007 - [id number] Implanted:Qty: 5 on 12/16/2022 by Jcarlos Guy MD PhD at [facility] N/A: Spine Cervical [employer] [id number] 07 / / [employer] Virage 5mm 25mm Self Tap Polyaxial Friction Fit Spine Screw Bone 07.50999.011 - [id number] Implanted:Qty: 2 on 12/16/2022 by Jcarlos Guy MD PhD at [facility] N/A: Spine Cervical [employer] [id number] / / [employer] Virage Closure Top Lid Sterilization Nonsterile Disposable Screw 28.001 - [id number] Implanted:Qty: 7 on 12/16/2022 by Jcarlos Guy MD PhD at [facility] N/A: Spine Cervical [employer] 28.0 01 / / [employer] Virage 3.5mm 60mm Jairon Spinal Titanium Nonsterile 10005 - [id number] Implanted:Qty: 2 on 12/16/2022 by Jcarlos Guy MD PhD at [facility] N/A: Spine Cervical [employer] [id number] / / Procedures Procedure Name Priority Date/Time Associated Diagnosis Comments EGFR Routine 05/29/2023 9:[address] ABDOMEN PELVIS W CONTRAST ED Urgent/IP Urgent 05/22/2023 9:13 PM CHAIR MENDER HEMOGLOBIN A1C Routine 12/17/2022 11:24 PM CDT LIPID PANEL STAT 12/16/2022 7:57 AM CDT from Last 3 Months or Most Recently Relevant to Health Maintenance Results * eGFR (05/29/2023 9:13 PM CHAIR MENDER) eGFR 77 >=60 mL/min/1. 73 m2 [facility] Comment: Interpretive Data Reference Interval Normal ?>/= [...] last reviewed 2021. Blood 05/29/2023 9:13 PM CHAIR MENDER 05/29/2023 10:29 PM CHAIR MENDER us Ingris [employer] LAB BLOOD ORDERABLES Final Result Performing Organization Address City/State/ZIP Co wy Phone Number [facility] Department [place] [address] * CT Abdomen Pelvis W Contrast (05/22/2023 9:13 PM CHAIR MENDER) Anatomical Region Laterality Modality Body N/A Computed Tomogra phy 05/22/2023 9:30 PM CHAIR MENDER Impressions 05/23/2023 9:37 AM CHAIR MENDER 1. Large sacral decubitus ulcer with overlying [...] Daniel Lewis M.D. Narrative 05/23/2023 9:37 AM CHAIR MENDER EXAMINATION: ??Computed tomography of the abdomen and [...] * Hemoglobin A1c (12/17/2022 11:24 PM CDT) Hgb A1C 5.3 4.0 - 5.6 % [facility] Estimated Average Glucose 105 mg/dL [facility] Comment: The ADA recommends reporting an estimated [...] LAB BLOOD ORDERABLES Rhoda peralta Result [facility] Department [place] [address] * Lipid panel (12/16/2022 7:57 AM CDT) [facility] Signature Cholesterol 143 30 - 199 mg/dL [facility] Comment: Interpretive Data Ages < or = [...] revised on 2017. Triglycerides 104 <=149 mg/dL [facility] Comment: Interpretive Data Ages < or = [...] revised on 2017. HDL 51 >=40 mg/dL [facility] Comment: Interpretive Data Ages < or = [...] 2017. LDL, calculated 71 <=129 mg/dL [facility] Comment: Interpretive Data Ages < or = [...] on 2017. Non-HDL Cholesterol 92 mg/dL [facility] Comment: Interpretive Data Ages < or = [...] last revised on 2017. Chol/HDL ratio 3 [facility] Blood 12/16/2022 7:57 AM CDT 12/16/2022 8:05 AM CDT us Jcarlos Guy MD PhD LAB BLOOD ORDERABLES Rhoda kathryn Result [facility] Department [place] [address] from Last 3 Months or Most Recently Relevant to Health Maintenance Additional Health Concerns Infection Onset Date Last Indicated MDR gram neg/ESBL 05/28/2023 05/28/2023 Insurance MEDICARE [facility] FEDERAL MEDICARE [facility] MEDICARE [facility] Advance Directives For more information, please contact: [phone] * Full Code (Latest Code Status on File) Date Activated Date Inactivated Comments 05/23/2023 3:17 AM 05/30/2023 9:30 PM * Full Code Date Activated Date Inactivated Comments 03/22/2023 1:39 PM 03/27/2023 1:01 AM * Full Code Date Activated Date Inactivated Comments 12/16/2022 8:09 PM 12/21/2022 9:49 PM Care Teams Tooling Supervisor Relationship Specialty Start Date End Date Evelio Mckee MD [facility] [place] [address] PCP - General Family Medicine 03/09/19
--- OUTSIDE RECORDS SUMMARY | 2024-04-25 19:18 | XMS_ITS | Encounter Summary ---
Author Organization [facility] Address [address] [place] [address]. [place], [place] [id number] [place] [address] Care Team Providers Care Channel Opener Outsoles Name Role Phone Cora Whipple DO Primary Care Provider [phone] Reason for Referral * Hospice (Routine) - New Request Specialty Diagnoses / Procedures Referred By Lokesh thompson Referred To Contact Hospice Services / [facility] Diagnoses Pressure ulcer of sacral region, stage 4 ([facility]) Osteomyelitis ([facility]) Procedures OFFICE/OUTPATIENT NEW LOW MDM 30-44 MINUTES OFFICE/OUTPT VISIT,NEW,LEVL IV OFFICE/OUTPT VISIT,NEW,LEVL V OFFICE/OUTPT VISIT,EST,LEVL III OFFICE/OUTPT VISIT,EST,LEVL IV OFFICE/OUTPT VISIT,EST,LEVL V Cora Whipple DO [address] [facility] [address] [place] [address] Phone: tel: fax: [facility] [place] [address] [address] Phone: tel: fax: Referral ID Status Reason Start Date Expiration Date Visits Requested Visits Authorized [id number] New Request Specialty Services 04/25/2024 05/25/2025 1 1 LE THERAPIST Reason for Visit * Reason Onset Date Comments Referral 04/25/2024 Encounter Details Date Type Department Care Team (Late st Contact Info) Description 04/25/2024 Telephone [facility] [place] [address] [place] [address] Cora Whipple, [address] [place] [address] Referral Social History Tobacco Use Types Packs/Day Years Used Date Smoking Tobacco: Former Cigarettes Smokeless Tobacco: Current Snuff Alcohol Use Standard Drinks/Week Comments Not Currently [...] Sex Assigned at Male 04/21/2024 1:44 PM MOBILE THERAPIST Legal Sex Male 5:52 PM CDT Gender Identity Male 04/21/2024 1:44 PM MOBILE THERAPIST Sexual Orientation Not on file documented as of this encounter Progress Notes * Tawanda Escalante MA - 04/25/2024 1:51 PM CST Referral placed, informed Tawanda at . Tawanda stated she would let patient and family know. 04/25/2024 1:52 PM LE THERAPIST * Tawanda Escalante MA - 04/25/2024 1:51 PM CSTAddended by: TAWANDA ESCALANTE on: 04/25/2024 01:51 PM Modules accepted: Orders LE THERAPIST * Tawanda Escalante MA - 04/25/2024 12:33 PM CST [facility] stating patient is refusing all care. HH states that patient's bed is soaked through with what she believes is fluid from patient's sacral wound. Patient's gutierrez catheter is due for a change but patient refused to allow HH to change gutierrez. HH states patient's urine is bluish-green in color. 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 Family contacted HH several times prior to HH visit today, each time HH advised family to get patient to ED. HH again advised ED upon arrival. Patient's family and HH urged patient at least 4 times and patient adamantly refuses ED. Patient states I am done, I just want to . Patient is requesting hospice referral. Please advise. Tawanda [phone], fax for referral [phone] 04/25/2024 12:38 PM LE THERAPIST documented in this encounter Plan of Treatment Upcoming Encounters Date Type Department Care Team (Late st Contact Info) Description 05/03/2024 8:00 AM MOBILE THERAPIST Home Care Visit [address] [place] [address] Flaca Rascon RN [phone] (Work) 05/10/2024 8:00 AM MOBILE THERAPIST Home Care Visit [address] [place] [address] Flaca Rascon RN [phone] (Work) 05/17/2024 8:00 AM MOBILE THERAPIST Home Care Visit [address] [place] [address] Flaca Rascon, RN [phone] (Work) 05/24/2024 8:00 AM MOBILE THERAPIST Home Care Visit [address] [place] [address] [place] [address] Flaca Rascon RN [phone] (Work) Scheduled Referrals Name Type Priority Associated Diagnoses Orde r Schedule Ambulatory referral to Hospice Referral Routine Pressure ulcer of sacral region, stage 4 (CMS/HCC HHS/HCC) Ordered: 04/25/2024 documented as of this encounter Visit Diagnoses Diagnosis Pressure ulcer of sacral region, stage 4 (CMS/HCC HHS/HCC)- Primary documented in this encounter Additional Health Concerns Assessment Noted Time PHQ-9 Depression Total Score: 16 024 4:33 PM MOBILE THERAPIST documented as of this encounter Care Teams Channel Opener Outsoles Relationship Specialty Start Date End Date Cora Whipple DO [address] [facility] [address] [place] [address] PCP - General FAMILY PRACTICE 03/16/24 documented as of this encounter
--- OUTSIDE RECORDS SUMMARY | 2024-04-25 19:18 | XMS_ITS | Encounter Summary ---
Author Organization [facility] Address [address] [place] [address]. [place], [place] [id number] [place] [address] Care Team Providers Care Policy Loan Calculator Name Role Phone Cora Whipple DO Primary Care Provider [phone] Reason for Visit * Reason Onset Date Comments Advise 04/25/2024 Encounter Details Date Type Department Care Team (Late st Contact Info) Description 04/25/2024 Telephone [facility] [address] [facility] [address] [facility] [place] [id number] Cora Whipple DO [address] [place] [address] Advise Social History Tobacco Use Types Packs/Day Years [...] Sex Assigned at Male 04/21/2024 1:44 PM GENERAL PURCHASING AGENT Legal Sex Male 5:52 PM CDT Gender Identity Male 04/21/2024 1:44 PM GENERAL PURCHASING AGENT Sexual Orientation Not on file documented as of this encounter Progress Notes * María Elena Boone - 04/25/2024 2:12 PM CSTSummary: hospice Gwen, We received the hospice referral for Nura. We will accept and add him to our schedule. Will Dr Whipple be following for hospice orders or defer to our medical records auditor? Thank you María Elena [facility] RAL PURCHASING AGENT documented in this encounter Plan of Treatment Upcoming Encounters Date Type Department Care Team (Late st Contact Info) Description 05/03/2024 8:00 AM GENERAL PURCHASING AGENT Home Care Visit [address] [address] Flaca Rascon RN [phone] (Work) 05/10/2024 8:00 AM GENERAL PURCHASING AGENT Home Care Visit [address] [place] [address] Flaca Rascon RN [phone] (Work) 05/17/2024 8:00 AM GENERAL PURCHASING AGENT Home Care Visit [address] [place] [address] Flaca Rascon, RN [phone] (Work) 05/24/2024 8:00 AM GENERAL PURCHASING AGENT Home Care Visit [address] [place] [address] Flaca Rascon, RN [phone] (Work) documented as of this encounter Visit Diagnoses Not on filedocumented in this encounter Additional Health Concerns Assessment Noted Time PHQ-9 Depression Total Score: 16 024 4:33 PM GENERAL PURCHASING AGENT documented as of this encounter Care Teams Policy Loan Calculator Relationship Specialty Start Date End Date Cora Whipple DO [address] [facility] [address] [place] [address] PCP - General FAMILY PRACTICE 03/16/24 documented as of this encounter
--- OUTSIDE RECORDS SUMMARY | 2024-04-25 19:18 | XMS_ITS | Data Portability ---
Author Organization [facility] [employer], Main Office Address [address] [place] [address] Assessment Encounter Date Assessment Date Assessment LastModified by Organization Details LastModified Time 10/28/2023 10/28/2023 The patient gave verbal consent using services and the consent is documented in the medical record prior to using the service. The patient has been informed of what a TeleMedicine visit is. Patient is located at . Provider is located at office. Names and roles of persons in addition to the patient and provider participating in telemedicine services include . The patient had a 20 minute TeleMedicine consultation via NETpeas to discuss the following: [email or web address] Not available 10/28/2023 15:56:25 Plan of Treatment Reminders Order Date Submit Date Provider Last Modified By Organization Details Last Modified Time Details Appointments None recorded. Lab urinalysis, dipstick 2023 024 [email or web address] 200 [facility] [address], [place], [address], 4 16:44:09 culture, urine + sensitivity 2023 024 [email or web address] 2 Not available 4 08:11:40 Referral orthopedic surgeon referral - Pt would like appt. tonio having left hip pain 2022 023 [email or web address] 3 Ben Salazar MD, [address] [facility] [address], [place], [address], 3 09:42:55 home health referral - wound care : decubitus buttocks and physical therapy , avoid the hip as much as possible . Please call patient to schedule an appointment . Thank you. 2023 024 [email or web address] [employer] [facility], [address], [address], [place], [address], 4 09:05:02 wound care referral - Please call patient to schedule an appointment . Thank you. 2023 024 [email or web address] [facility], [address] [facility], [place], [address], 4 08:45:58 Procedures negative pressure wound therapy (PROC) - NEEDS HIS WOUND VAC PUT BACK ON , PLEASE 2023 024 [email or web address] 2 [facility], [address], [address], [place], [address], 4 08:25:14 Surgeries None recorded. Imaging XR, hip, unilateral, 2 or 3 view 2022 023 [facility], [address] [place] [address] , [place], [address], 3 16:50:07 XR, knee, 3 view 2022 023 [facility], [address] [place] [address] , [place], [address], 3 16:49:25 Medication Orders alprazolam 0.5 mg tablet 2022 023 [email or web address], [address] [facility] , [place], [place], [id number], 4 16:19:03 oxycodone-a cetaminophe n 10 mg-325 mg tablet 2023 024 [facility], [address] [facility] , [place], [place], [id number], 4 15:25:44 cyclobenzap rine 10 mg tablet 2023 024 [facility], [address] [facility] , [place], [place], [id number], 4 15:50:49 tamsulosin 0.4 mg capsule 2023 024 [facility], [address] [facility] , [place], [place], [id number], 4 15:49:52 ciprofloxac in 500 mg tablet 2023 024 [facility], [address] [facility] , [place], [place], [id number], 4 09:48:34 prednisone 10 mg tablet 2023 024 [facility], [address] [facility] , [place], [place], [id number], 4 10:20:10 Patient TargetsNo targets recorded. Patient Instructions Encounter Date Encounter Id Patient Instructions Last Modified By Organization Details Last Modified Time 10/30/2022 [id number] dementia rating scale-2* Not available 10/30/2022 12:31:51 alcohol misuse* Not available 10/30/2022 12:31:23 depression screening* Not available 10/30/2022 12:30:59 multi-dimensiona l health assessment questionnaire* Not available 10/30/2022 12:31:46 Personalized a lt Plan and Screening Recommendations Advance Directives - Do you have one? Yes Advance Directives - Do we have your advance directive on file in your health record? Primary Prevention/Interven tion (prevents or decreases the chance of common diseases from occurring) Smoking Risk: Non Smoker Alcohol Misuse Screening: Negative Weight: Appropriate Overwei ght continue your current weight loss efforts try to lose 5% of your body weight try to lose 10% of your body weight try to lose 15% of your body weight Physical activity: Appropriate physical activity Nutrition: Good Fall Risk (screened today): Refer to attached handout Preventing Falls: After your Visit Vaccines Pneumococcal: Influenza: Chronic Disease Risks Stroke: Low Risk Intermediate Risk Heart Attack: Low risk Intermediate Risk Clogging of the Arteries: Low risk Intermediate Risk Diabetes: Low Risk I have no recommendations Secondary Prevention/Interven tion (detects treatable diseases before they may cause symptoms, disability, or ) Prostate Cancer Screening: Colon Cancer Screening: Colonoscopy Date Screening Last Performed: Eye Disease Screening: Dementia Risk: Low I have no recommendations Depression Screening: Negative Positive Recommend additional evaluation and/or treatment as noted above [email or web address] Not available 10/29/2022 11:58:20 10/28/2023 [id number] Due to the COVID -19 (Novel Coronavirus) pandemic, it is within this context (and with the understanding that this method of patient encounter is in the patient? s best interest as well as the health and safety of other patients and the public) that ? telehealth? is being provided for this patient encounter rather than a ueda-rv-axdo visit. This patient encounter is appropriate at this time. This patient has been advised of the potential risks and limitations of this mode of treatment (including, but not limited to, the absence of in-person examination) and has agreed to be treated in a remote fashion despite these risks. Any and all of the patient? s/patient? s family? s questions on this issue have been answered, and I have made no promises or guarantees to the patient. The patient has also been advised to contact this office for worsening conditions or problems, and seek emergency medical treatment and/or call 911 if the patient deems either necessary. HPI and/or vitals, if listed, were provided by the patient. Not available 10/28/2023 15:36:19 01/10/2024 [id number] showed him the yellow zone on [employer] graph and , he was in the red zone a few months ago , He can't take ibuprofen , advil caused a stomach ulcer . [email or web address] Not available 01/12/2024 14:16:45 Reason for Referral Orthopedic Surgeon Referral for Pain of right knee joint Pt would like appt. tonio having left hip pain Referring Physician: Evelio Mckee, Family Medicine, Encounter Date: 01/27/2023 Home Health Referral for Pre ssure injury wound care : decubitus buttocks and physical therapy , avoid the hip as much as possible . Please call patient to schedule an appointment. Thank you. Referring Physician: Cornell Kauffman [facility] [place], Encounter Date: 10/28/2023 Please call patient to sched ule an appointment. Thank you. Referring Physician: Family [facility] Watters, Encounter Date: 01/10/2024 Results Created Date Observation Date Name Description Value Unit Range Abnormal Flag Note LastModifiedBy Organization Detail LastModifiedTime 11/22/1911/22/2023 urina lysis , dipst ick Leukocytes (reference range: negative kiana/??l) Large Not Available [address], [place], [address], 11/22/2023 16:36:16 11/22/19 24 11/22/2023 urina lysis , dipst ick Nitrite (reference rage: negative mg/dl) negati ve Not Available [address], [place], [address], 11/22/2023 16:36:16 11/22/1911/22/2023 urina lysis , dipst ick Urobilinogen (reference range: 0.2-1 mg/dl) 0.2 Not Available [address], [place], [address], 11/22/2023 16:36:16 11/22/1911/22/2023 urina lysis , dipst ick Protein (reference range: negative mg/dl) Trace Not Available [address], [place], [address], 11/22/2023 16:36:16 11/22/19 24 11/22/2023 urina lysis , dipst ick pH (reference range: 5-7) 6.5 Not Available [address], [place], [address], 11/22/2023 16:36:16 11/22/19 24 11/22/2023 urina lysis , dipst ick Blood (reference range: negative Javon/??l) Small Not Available [address], [place], [address], 11/22/2023 16:36:16 11/22/1911/22/2023 urina lysis , dipst ick Specific [place] (reference range: 1.005-1.030) 1.015 Not Available [address], [place], [address], 11/22/2023 16:36:16 11/22/1911/22/2023 urina lysis , dipst ick Ketone (reference range: negative mg/dl) Negati ve Not Available [address], [place], [address], 11/22/2023 16:36:16 11/22/1911/22/2023 urina lysis , dipst ick Bilirubin (reference range: negative mg/dl) Negati ve Not Available [address], [place], [address], 11/22/2023 16:36:16 11/22/1911/22/2023 urina lysis , dipst ick Glucose (reference range: negative mg/dl) Negati ve Not Available [address], [place], [address], 11/22/2023 16:36:16 11/22/1919 1111/22/2023 urina lysis , dipst ick Appearance Clear Not Available [address], [place], [address], 11/22/2023 16:36:16 11/22/19 24 11/22/2023 urina lysis , dipst ick Color Yellow Not Available [address], [place], [address], 11/22/2023 16:36:16 10/06/19 23 10/05/2022 CT, cervi godfrey spine , w/o contr ast No observ ation record ed. [place] [address], [place], [address], 10/06/2022 17:06:26 01/28/20 23 XR, hip, unila teral [facility] [address] [place] [address] Patien t Name: NURA NORTH ion #: [id number] Sex: M : 1959 2 Dictat ed By: Nawaf Jones Attend ing Physic mahad: ADAL IB, RUNDA Orderi Physic mahad: ADAL HAWKINS, RUNDA Exam Date: Exam Name: XR HIP/PE LVIS LT 2-3V Admitt ing Diagno sis(es ): LEFT HIP RADIOG RAPH. CLINIC AL INDICA TION: Hip Pain. TECHNI QUE: 2 views of the left hip hip were obtain ed. FINDIN GS: There is no eviden ce of fractu re, sublux ation or disloc ation. The alignm ent is within normal limits .Sever e left hip osteoa rthrit is. No radiop aque foreig n body is identi fied. IMPRES MARBIN: 1. No eviden ce of acute bony injury . 2. Severe left hip osteoa rthrit is. Electr onical ly Signed by: Nawaf Jones at 2022 15:46: 41 PM Page [address] (Imaging) [address] [place], [address], 01/28/2023 09:45:42 01/28/20 XR, knee, 3 view [facility] [address] [place] [address] Patien t Name: NURA NORTH ion #: [id number] Sex: M : 1959 2 Dictat ed By: Nawaf Joens Attend ing Physic mahad: EVELIO HERNANDEZ Orderi ng Physic mahad: ADAL HAWKINS, RUNDA Exam Date: Exam Name: XR KNEE RT 3V Admitt ing Diagno sis(es ): right knee radiog raph CLINIC AL INDICA TION: pain TECHNI QUE: 3 radiog raphic views of the right knee were obtain ed. FINDIN GS: There is no eviden ce of acute fractu re or disloc ation. Modera te tricom partam ental joint space narrow ing. Chondr ocalci nosis. The alignm ent is anatom ical. Soft tissue s are unrema rkable . IMPRES MARBIN: No acute fractu re or disloc ation. Modera te tricom partam ental joint space narrow ing. Chondr ocalci nosis. Electr onical ly Signed by: Nawaf Jones at 2022 15:48: 10 PM Page [address] (Imaging) [address] [place], [address], 01/28/2023 09:45:43 01/28/2001/27/2023 XR, hip, unila teral , 2 or 3 view No observ ation record ed. [email or web address] [place], [address], 01/28/2023 09:45:43 01/28/2001/27/2023 XR, knee, 3 view No observ ation record ed. [address] [facility] [address] [place] [address] Dr, [place], [address], 01/28/2023 08:36:28 03/05/20 23 03/05/2023 XR, knee, 3 view No observ ation record ed. [address] [facility], [place], [address], 04/07/2023 13:13:34 03/10/20 23 03/10/2023 CT, abdom en, w/o contr ast No observ ation record ed. [place] [address], [place], [address], 04/07/2023 13:13:35 03/12/20 23 03/12/2023 US, renal No observ ation record ed. [place] [address], [place], [address], 04/07/2023 13:13:35 04/03/19 24 04/03/2023 XR, chest , 1 view No observ ation record ed. [place] [address], [place], [address], 04/08/2023 09:59:43 04/04/19 24 04/03/2023 CT, abdom en + pelvi s, w/o contr ast No observ ation record ed. [place] [address], [place], [address], 04/08/2023 10:05:14 04/14/19 24 04/14/2023 CT, pelvi s, w/ contr ast No observ ation record ed. [place] [address], [place], [address], 04/21/2023 08:58:58 04/15/19 24 04/15/2023 XR, chest , 1 view No observ ation record ed. [address] [place], [address], 04/21/2023 09:02:11 04/15/19 24 04/15/2023 CT, angio gram, chest , w/ contr ast No observ ation record ed. [address], [place], [address], 04/21/2023 09:07:16 04/16/19 24 04/16/2023 XR, chest , 1 view No observ ation record ed. [email or web address] [address], [place], [address], 04/16/2023 12:42:54 04/17/19 24 04/17/2023 XR, chest , 1 view No observ ation record ed. [address] [facility], [place], [address], 04/23/2023 10:13:26 04/18/19 24 04/18/2023 XR, chest No observ ation record ed. [address], [place], [address], 04/23/2023 10:38:26 04/19/19 24 04/19/2023 XR, chest No observ ation record ed. [address] [facility], [place], [address], 04/23/2023 10:39:02 Result Notes None recorded. Problems Name Problem SNOMED Code Status Onset Date Resolution Date Notes Provider Name and Address Organization Details Recorded Time Open wound of lower leg 085826092 Active 2021 Not Available [facility] 3 03:57:37 Hyperchole sterolemia 90481626 Active 2018 Not Available [facility] 3 03:57:37 Blindness of one eye Active 2018 Not Available [facility] 3 03:57:37 Chronic pain syndrome 415459801 Active 2018 Not Available [facility] 3 03:57:38 Hypertensi ve disorder 62483323 Active 2018 Not Available [facility] 3 03:57:38 Neuropathy 759805064 Active 2018 Not Available [facility] 3 03:57:38 Impairment of balance 245157507 Active 2018 Not Available [facility] 3 03:57:38 Anxiety 40094886 Active 2018 Not Available [facility] 3 03:57:38 Nerve injury 81406485 Active 2018 Not Available [facility] 3 03:57:38 Onycholysi s 92850184 Active 2021 Not Available [facility] 3 03:57:38 Dystrophia unguium 01574002 Active 2021 Not Available [facility] 3 03:57:38 Cervical radiculopa thy 06057854 Active 2022 Not Available [facility] 3 03:57:38 Urinary symptoms 440665568 Active 2022 Not Available [facility] 3 03:57:37 Acute urinary tract infection 780456567 Active 2022 Not Available [facility] 3 03:57:38 Nocturia 868122856 Active 2022 Not Available [facility] 3 03:57:37 Chronic low back pain 512888388 Active 2022 Not Available [facility] 3 03:57:37 Anxiety disorder 025369100 Active 2022 Not Available [facility] 3 03:57:37 Diabetic peripheral neuropathy 257555944 Active 2022 Not Available [facility] 3 03:57:38 Mixed anxiety and depressive disorder 538082264 Active 2022 Not Available [facility] 3 03:57:37 Pain of left hip joint 4299080470287 00 Active 2022 Not Available [facility] 3 03:57:38 Pain of right knee joint 7652294839167 00 Active 2022 Not Available [facility] 3 03:57:38 Retention of urine 476227135 Active 2022 Not Available [facility] 3 03:57:37 Anemia 507777612 Active 2022 Evelio Mckee MD [address], [address], [place], [address] , [place] [facility] 3 09:11:14 Essential hypertensi on 59474073 Active 2022 Evelio Mckee MD [address], [address], [place], [address] , [place] [facility] 3 15:53:33 Iron deficiency 81030591 Active 2022 Evelio Mckee MD [address], [address], [place], [address] , [place] [facility] 3 20:00:46 Overdose 4811732628 Active 2022 CONNIE Tejada [address], [address], [place], [address] , [place] [facility] 3 14:55:18 Pressure injury 4770891574 Active 2023 CONNIE Tejada [address], [address], [place], [address] , [place] [facility] 4 15:42:47 Benign prostatic hyperplasi a 145275339 Active 2023 CONNIE Tejada [address], [address], [place], [address] , [place] [facility] 4 15:49:22 Dysuria 20801761 Active 2023 Linda Green RN null, [place] [facility] 4 16:36:24 Open wound 086289241 Active 2023 Linda Green RN null, [place] [facility] 4 15:19:09 Insomnia 666188544 Active 2023 CONNIE Tejada [address], [address], [place], [address] , [facility] 4 10:16:44 Wound pain 452138566 Active 2023 CONNIE Tejada [address], [address], [place], [address] , [facility] 4 15:10:33 Screening for malignant neoplasm of prostate Active 2023 CONNIE Tejada [address], [place], [address] , [employer] [facility] [employer] [facility] 15:29:40 Problem Notes None recorded. Procedures Surgical History Date Name Laterality Status Provider Name and Address Organization Details Recorded Time 05/10/19 24 debridement completed Horacio Villa RN [facility] [employer] [facility] 05/11/2023 11:48:00 05/03/19 24 debridement completed Horacio Villa RN [facility] [employer] [facility] 05/07/2023 09:27:22 04/22/19 24 debridement completed Horacio Villa RN [facility] [employer] [facility] 04/23/2023 09:18:55 10/31/19 23 Medicare Wellness CPT Code, subsequent completed Clee Hendrix RN [facility] [employer] [facility] 10/29/2022 11:52:57 Hernia Surgery completed Not Available [facility] 05/27/2022 20:39:29 procedure on wrist completed Not Available [facility] 05/27/2022 20:39:29 Lumbar Spine Surgery completed Not Available [facility] 05/27/2022 20:39:29 Spinal Fusion completed Carmen Ziegler MA [facility] [employer] [facility] 01/27/2023 15:31:27 Imaging Results Imaging Date Name Status LastModified by Organiz ation Details LastModified Time 10/05/2022 CT, cervical spine, w/o contrast completed [address], [address], 10/06/2022 17:06:26 01/27/2023 XR, hip, unilateral completed [address] (Imaging) [address] [place], [address], 01/28/2023 09:45:42 01/27/2023 XR, knee, 3 view completed [address] (Imaging) [address] [place], [address], 01/28/2023 09:45:43 01/27/2023 XR, hip, unilateral, 2 or 3 view completed [address] [place], [address], 01/28/2023 09:45:43 01/27/2023 XR, knee, 3 view completed [address], [place], [address], 01/28/2023 08:36:28 03/05/2023 XR, knee, 3 view completed [address], [address], 04/07/2023 13:13:34 03/10/2023 CT, abdomen, w/o contrast completed [address], [address], 04/07/2023 13:13:35 03/12/2023 US, renal completed [address], [address], 04/07/2023 13:13:35 04/03/2023 XR, chest, 1 view completed [address], [address], 04/08/2023 09:59:43 04/03/2023 CT, abdomen + pelvis, w/o contrast completed [address], [address], 04/08/2023 10:05:14 04/14/2023 CT, pelvis, w/ contrast completed [address] [facility], [place], [address], 04/21/2023 08:58:58 04/15/2023 XR, chest, 1 view completed [address] [facility], [place], [address], 04/21/2023 09:02:11 04/15/2023 CT, angiogram, chest, w/ contrast completed [address] [facility], [place], [address], 04/21/2023 09:07:16 04/16/2023 XR, chest, 1 view completed [address] [facility], [place], [address], 04/16/2023 12:42:54 04/17/2023 XR, chest, 1 view completed [address] [address], [place], [address], 04/23/2023 10:13:26 04/18/2023 XR, chest completed [address] [facility], [place], [address], 04/23/2023 10:38:26 04/19/2023 XR, chest completed [address], [address], 04/23/2023 10:39:02 Procedure Notes None recorded. Medical Equipment None Reported. Allergies Allergen ID Allergen Name Allergen Category Reaction Reaction Severity Criticality Documentation Date Start Date Code Code System Note Provider Name and Address Organization Details Recorded Time 22736 diclofena c Not available hives moderate Not available 05/27/2022 3355 RxNorm Not Available [facility] 20:41:29 Medications Name Sig Start Date Stop Date Status Note LastModified by Organization Details LastModified Time cyclobenz aprine 10 mg tablet Take 1 Tablet (10 mg) by mouth daily at bedtime. active Not Available Not Available No t Available amoxicill in 500 mg capsule 02/13 completed Not Available Not Available Not Available fluconazo le 100 mg tablet Take 1 tablet every day by oral route for 7 days. active Not Available Not Available No t Available prednison e 10 mg tablet Take 1 tablet every day by oral route for 30 days. active Not Available Not Available No t Available doxycycli ne hyclate 100 mg capsule 07/10 completed Not Available Not Available Not Available trazodone 50 mg tablet Take 1 Tablet (50 mg) by mouth daily at bedtime. 2023 active Not Available Not Available Not Avai lable atorvasta tin 10 mg tablet Take 1 tablet every day by oral route for 30 days. active Not Available Not Available No t Available alprazola m 1 mg tablet take 1 tablet 1 hour before procedur e 10/11 completed Not Available Not Available Not Available cephalexi n 250 mg capsule 05/04 completed Not Available Not Available Not Available hydrocodo ne 5 mg-acetam inophen 325 mg tablet 1-2 tabs Q 6 hours as needed. 02/07 completed Not Available Not Available Not Available Elidel 1 % topical cream 07/20 completed Not Available Not Available Not Available prednison e 20 mg tablet Take 2 tabs PO twice daily for 2 days; 1 tab PO twice daily for 5 days; 1/2 tab PO twice daily for 2 days; 1/2 tab PO once for 1 day. TAKE 2ND DOSE EVERYDAY AT NOON-10 DAY COURSE active Not Available Not Available No t Available atenolol 25 mg tablet TAKE ONE TABLET BY MOUTH ONCE DAILY 10/27 completed Not Available Not Available Not Available Gissell Low Dose Aspirin 81 mg tablet,de layed release Take 1 tablet every day by oral route. 07/20 completed Not Available Not Available Not Available hydralazi ne 25 mg tablet Take 1 tablet twice a day by oral route. 10/28 completed Not Available Not Available Not Available lidocaine HCl 2 % mucosal jelly 1 applicat ion around gutierrez catheter to remove debris 2024 active Not Available Not Available Not Avai lable phentermi ne 37.5 mg tablet Take 1 tablet every day by oral route. 07/10 completed Not Available Not Available Not Available ciproflox acin 500 mg tablet Take 1 tablet every 12 hours by oral route for 10 days. 01/09 completed Not Available Not Available Not Available hydrocodo ne 10 mg-acetam inophen 325 mg tablet TAKE 1-2 TABLETS BY MOUTH EVERY 4 TO 6 HOURS NEEDED FOR PAIN active Not Available Not Available No t Available tramadol 50 mg tablet active Not Available Not Available Not Available vancomyci n 1,000 mg intraveno us injection active Not Available Not Available No t Available acetamino phen 500 mg tablet Take 2 tablets every 6 hours by oral route as needed. active Not Available Not Available No t Available triamcino lone acetonide 0.1 % topical cream active Not Available Not Available Not Available losartan 100 mg-hydroc hlorothia zide 25 mg tablet TAKE ONE TABLET BY MOUTH ONCE DAILY active Not Available Not Available No t Available alprazola m 0.5 mg tablet Take 1 Tablet (0.5 mg) by mouth 3 times daily as needed. active Not Available Not Available No t Available alprazola m 0.25 mg tablet TAKE ONE TABLET BY MOUTH ONCE A DAY NEEDED 02/07 completed Not Available Not Available Not Available methocarb jose 750 mg tablet 10/28 completed Not Available Not Available Not Available triamcino lone acetonide 0.025 % topical cream 07/10 completed Not Available Not Available Not Available oxycodone -acetamin ophen 10 mg-325 mg tablet Take 1-2 Tablets by mouth every 6 hours as needed for pain. Max Daily Amount: 8 Tablets. Must last 30 days. 01/19 completed pt reports extreme itching and med was not effectiv e Not Available Not Available Not Available tamsulosi n 0.4 mg capsule Take 1 Capsule (0.4 mg) by mouth daily at bedtime. active Not Available Not Available No t Available amlodipin e 10 mg tablet 1 po daily 12/12 completed Not Available Not Available Not Available cephalexi n 500 mg capsule 12/25 completed Not Available Not Available Not Available paroxetin e 30 mg tablet TAKE ONE TABLET BY MOUTH ONCE DAILY active Not Available Not Available No t Available pantopraz ole 40 mg tablet,de layed release 1 po Q 12 hours 01/09 completed Not Available Not Available Not Available simvastat in 20 mg tablet TAKE ONE TABLET BY MOUTH ONCE DAILY 10/28 completed Not Available Not Available Not Available trazodone 150 mg tablet Take 1 Tablet (150 mg) by mouth daily as needed at bedtime. active Not Available Not Available No t Available ferrous sulfate 325 mg (65 mg iron) tablet TAKE ONE TABLET BY MOUTH ONCE DAILY 02/09 completed Not Available Not Available Not Available triamcino lone acetonide 0.1 % topical ointment active Not Available Not Available Not Available ranitidin e 150 mg tablet 07/20 completed Not Available Not Available Not Available mupirocin calcium 2 % topical cream active Not Available Not Available Not Available oxybutyni n chloride ER 5 mg tablet,ex tended release 24 hr Take 1 Tablet (5 mg) by mouth daily. 01/09 completed Not Available Not Available Not Available gabapenti n 300 mg capsule Take 1 capsule 3 times a day by oral route. 03/07 completed Not Available Not Available Not Available folic acid 1 mg tablet take 1 tablet by mouth every day 07/20 completed Not Available Not Available Not Available hydrocort isone 2.5 % topical cream 07/10 completed Not Available Not Available Not Available hydroxyzi ne HCl 25 mg tablet Take 1 tablet 4 times a day by oral route as needed for 30 days. 2023 active Not Available Not Available Not Avai lable mupirocin 2 % topical ointment active Not Available Not Available Not Available furosemid e 20 mg tablet TAKE ONE TABLET BY MOUTH ONCE DAILY 10/28 completed Not Available Not Available Not Available gabapenti n 100 mg capsule take 1 tablet by mouth 3 times a day active Not Available Not Available No t Available vancomyci n 10 gram intraveno us solution active Not Available Not Available Not Available triamcino lone acetonide 0.1 % lotion active Not Available Not Available Not Available oxycodone -acetamin ophen 7.5 mg-325 mg tablet TAKE ONE TO TWO TABLETS BY MOUTH EVERY 6 HOURS NEEDED FOR PAIN ( MAX OF 5 TABLETS PER DAY) active Not Available Not Available No t Available timolol maleate 0.5 % eye drops 2023 active Not Available Not Available Not Avai lable oxybutyni n chloride 5 mg tablet 10/27 completed duplicat e Not Available Not Available Not Available Vitamin B-1 100 mg tablet take 1 tablet by mouth every morning 07/07 completed Not Available Not Available Not Available losartan 100 mg tablet TAKE ONE TABLET BY MOUTH ONCE DAILY 10/28 completed Not Available Not Available Not Available spironola ctone 50 mg tablet Take 1 tablet every day by oral route. 07/10 completed Not Available Not Available Not Available Ventolin HFA 90 mcg/actua tion aerosol inhaler Inhale 2 puffs every 4 hours by inhalati on route as needed. 07/10 completed Not Available Not Available Not Available oxycodone 5 mg tablet 01/19 completed Not Available Not Available Not Available enoxapari n 40 mg/0.4 mL subcutane ous syringe 10/27 completed Not Available Not Available Not Available escitalop malick 10 mg tablet Take 1 tablet every day by oral route. 10/28 completed Not Available Not Available Not Available mirtazapi ne 7.5 mg tablet Take 1 tablet every day by oral route at bedtime for 30 days, for insomnia . active Not Available Not Available No t Available nitrofura ntoin monohydra te/macroc rystals 100 mg capsule Take 1 capsule every 12 hours by oral route. 10/27 completed Not Available Not Available Not Available pregabali n 50 mg capsule Take 1 capsule by mouth daily at bedtime for 7 days , take 1 capsule twice daily for 7 days , and 1 capsule three times daily. 01/09 completed Not Available Not Available Not Available pregabali n 100 mg capsule TAKE ONE CAPSULE BY MOUTH THREE TIMES A DAY ( REPLACES GABAPENT IN) 09/19 completed Not Available Not Available Not Available pregabali n 150 mg capsule Take 1 capsule twice a day by oral route for 30 days. active Not Available Not Available No t Available pregabali n 200 mg capsule Take 1 capsule 3 times a day by oral route. 10/28 completed dose adjustme nt Not Available Not Available Not Available chlorhexi dine gluconate 0.12 % mouthwash 07/10 completed Not Available Not Available Not Available oxycodone 10 mg tablet Take 1 tablet every 4 hours by oral route. active Not Available Not Available No t Available GaviLyte- N 420 gram oral solution 05/04 completed Not Available Not Available Not Available Thera M Plus (ferrous fumarate) 9 mg iron-400 mcg tablet Take 1 tablet every day by oral route. 10/28 completed Not Available Not Available Not Available Dupixent 300 mg/2 mL subcutane ous syringe every 2 weeks 10/28 completed Not Available Not Available Not Available Vitals Date Recorded Body height Body mass index (BMI) Body weight Body temperature Heart rate Oxygen saturation Oxygen saturation in Arterial blood by Pulse oximetry Systolic blood pressure Diastolic blood pressure Provider Name and Address Organization Details Last Updated DateTime 3 170.18 cm 43.1 kg/m2 570366. 9 g 97.5 [degF] 64 /min 95 % 95 % 164 mm[Hg] 80 mm[Hg] ZACH Boone [facility] [employer] ([email or web address]) [facility] 3 12:05:10 Date Recorded Body height Body temperature Heart rate Oxygen saturation Oxygen saturation in Arterial blood by Pulse oximetry Systolic blood pressure Diastolic blood pressure Provider Name and Address Organization Details Last Updated DateTime 3 170.18 cm 97.4 [degF] 63 /min 91 % 91 % 144 mm[Hg] 78 mm[Hg] Carmen Ziegler MA [facility] [employer] 3 15:28:39 Date Recorded Body height Provider Name an d Address Organization Details Last Updated DateTime 10/28/2023 170.18 cm CONNIE Tejada [address] [facility] [address], [place], [address], [facility] [employer] 10/28/2023 15:34:29 Date Recorded Body height Body temperature Heart rate Oxygen saturation Oxygen saturation in Arterial blood by Pulse oximetry Systolic blood pressure Diastolic blood pressure Provider Name and Address Organization Details Last Updated DateTime 4 170.18 cm 97.3 [degF] 120 /min 100 % 100 % 150 mm[Hg] 94 mm[Hg] Linda Green RN [facility] [employer] [facility] 4 09:56:28 Social History Question Answer Notes LastModified by Organizat ion Details LastModified Time Tobacco Smoking Status Former Smoker Not Available [facility] 05/27/2022 20:39:22 Do You Have An Advance Directive? No [id number] Information not available 05/27/2022 What Is Your Level Of Alcohol Consumption? Moderate [id number].[id number] Information not available 05/27/2022 Are You Blind Or Do You Have Difficulty Seeing? Yes MIGRATION.[id number] Information not available 05/27/2022 What Is Your Level Of Caffeine Consumption? Occasional MIGRATION.[id number] 8244 Information not available 05/27/2022 How Much Tobacco Do You Chew? None MIGRATION.[id number] Information not available 05/27/2022 In The 14 Days Before Symptom Onset, Have You Had Close Contact With A Laboratory-confir med COVID-19 While That Case Was Ill? No MIGRATION.[id number] Information not available 05/27/2022 In The 14 Days Before Symptom Onset, Have You Had Close Contact With A Person Who Is Under Investigation For COVID-19 While That Person Was Ill? No MIGRATION.[id number] 8408 Information not available 05/27/2022 Are You Deaf Or Do You Have Serious Difficulty Hearing? No MIGRATION.[id number] 4252 Information not available 05/27/2022 What Type Of Diet Are You Following? REGULAR MIGRATION.286905 4573 Information not available 05/27/2022 Which Illicit Or Recreational Drugs Have You Used? None MIGRATION.[id number] 5129 Information not available 05/27/2022 Do You Or Have You Ever Used E-cigarettes Or Vape? Never Used Electronic Cigarettes MIGRATION.[id number] 1139 Information not available 05/27/2022 What Is Your Occupation? Disabled MIGRATION.646784 5200 Information not available 05/27/2022 Advance Directive- Providers Has Reviewed Directive And Consents To Follow Them (insert Provider Name With Any Objectives In Notes Field) No MIGRATION.[id number] Information not available 05/27/2022 Do You Or Have You Ever Used Smokeless Tobacco? Never Used Smokeless Tobacco MIGRATION.939254 9170 Information not available 05/27/2022 How Much Tobacco Do You Smoke? No MIGRATION.565341 0593 Information not available 05/27/2022 How Many Years Have You Smoked Tobacco? 25 MIGRATION.703034 0356 Information not available 05/27/2022 Sex: Unknown Functional Status Question Answer Note LastModified by Organizat ion Details LastModified Time Do you have difficulty walking or climbing stairs? Yes [id number].[id number] Information not available 05/27/2022 Do you have difficulty doing errands alone? Yes MIGRATION.[id number] 6 Information not available 05/27/2022 Do you have difficulty dressing or bathing? Yes MIGRATION.[id number] 6 Information not available 05/27/2022 What is your exercise level? None MIGRATION.[id number] 6 Information not available 05/27/2022 Mental Status Question Answer Note LastModified by Organizat ion Details LastModified Time Do you have difficulty concentrating, remembering or making decisions? No MIGRATION.[id number] 6 Information not available 05/27/2022 Family History Relationship Description Onset Age of this Age Resolved Age Notes LastModified by Organization Details LastModified Time Father Heart disease [id number] Not available 05/27/2022 20:39:30 Maternal Grandfather Family history of malignant neoplasm MIGRATION.[id number] Not available 05/27/2022 20:39:30 Maternal Grandfather Diabetes mellitus MIGRATION.[id number] Not available 05/27/2022 20:39:30 Medical History Condition Response BLINDNESS N KIDNEY STONES N MRSA N CARPAL TUNNEL SYNDROME N LUNG DISEASE/DISORDER N HISTORY OF DRUG ABUSE N RADIATION / CHEMOTHERAPY N COPD N SPORTS INJURY N ANKLE PAIN N BLOOD DISEASES N SCHIZOPHRENIA N SHINGLES N BOWEL PROBLEMS N SHOULDER PAIN N DEPRESSION (INCLUDING POST ) N STROKE/TIA N KNEE PAIN N ULCERS Y BENIGN PROSTATIC HYPERPLASIA N OBESITY N GERD/NAUSEA N ANEURYSM N URINARY/BLADDER/KIDNEY PROBLEMS N CORONARY ARTERY DISEASE (CAD) N ADDICTION CONCERNS N USE OF BLOOD THINNERS N SKIN PROBLEMS Y EMPHYSEMA N MUSCLE,JOINT OR BONE PROBLEMS N DVT N STOMACH ULCERS N BLOOD CLOTS N USE OF NSAIDS N CONCUSSION OR SPINAL TRAUMA N NEUROPATHY N AIDS/HIV N FRACTURES N ELBOW PAIN N HYPERTENSION Y TOURETTE'S N ANXIETY DISORDER N Metal allergy N BLOOD TRANSFUSION N ANEMIA/BLOOD DISORDER N BIPOLAR DISORDER N BRONCHITIS N OSTEOARTHRITIS N TUBERCULOSIS N FOOT PROBLEM N HEART VALVE DISORDERS N ALLERGIES/HAYFEVER N SOFT TISSUE INJURY N INFECTIOUS DISEASE N HEART ARRHYTHMIA N INSOMNIA N RHEUMATOID ARTHRITIS N HIGH CHOLESTEROL / HYPERLIPIDEMIA N EDEMA N CHRONIC PAIN SYNDROME N CAROTID BLOCKAGE N BACK / NECK PROBLEMS N HAVE YOU BEEN HOSPITALIZED OR SEEN IN [facility] IN THE PAST YEAR ? N BURSITIS N HERNIATED DISC N DIALYSIS N FIBROMYALGIA N OSTEOPOROSIS N ARTHRITIS Y NO SIGNIFICANT PAST MEDICAL HISTORY N PERIPHERAL NEUROPATHY N DIABETES, TYPE N HEARTBURN / REFLUX N HEPATITIS / LIVER DISEASE N GOUT Y SLEEP DISORDER N ALZHEIMER'S DISEASE N HERPES N SEIZURES/EPILEPSY N HEADACHES/MIGRAINES N VASCULAR DISEASE N HIP PAIN N Blood Disorder N DIZZINESS N HEAD TRAUMA OR INJURY N HEART DISEASE/HEART PROBLEMS N MULTIPLE SCLEROSIS N CARDIAC ARRHYTHMIA N CANCER: SPECIFY N ANESTHESIA COMPLICATIONS N ATRIAL FIBRILLATION N AUTOIMMUNE DISEASE N Immunizations Vaccine Type Date Status Note Provider Nam e and Address Organization Details Recorded Time Pneumococcal conjugate PCV 13 9 completed Not Available [facility] 02/02/2023 03:57:38 Past Encounters Encounter ID Performer Location Encounter Start Date Encounter Closed Date Diagnosis/Indication Diagnosis SNOMED-CT Code Diagnosis ICD10 Code Diagnosis Note [id number] [facility] [place] [address] [place] [address] 08/12/2020 00:00:00 08/12/2020 21:54:47 [id number] [facility] [place] [address] [place] [address] 09/19/2020 00:00:00 09/25/2020 17:36:50 [id number] [facility] [place] [address] [place] [address] 09/26/2020 00:00:00 09/26/2020 20:49:07 [id number] [facility] [address] [place] [address] 10/16/2020 00:00:00 10/16/2020 17:08:31 [id number] [facility] [place] [address] [place] [address] 02/13/2021 00:00:00 02/13/2021 22:14:44 [id number] [facility] [place] [address] [place] [address] 03/18/2021 00:00:00 03/19/2021 13:15:44 [id number] [facility] [place] [address] [place] [address] 07/07/2021 00:00:00 07/07/2021 22:32:35 [id number] [facility] [place] [address] [place] [address] 07/16/2021 00:00:00 07/17/2021 12:44:25 [id number] [facility] [place] [address] [place] [address] 08/20/2021 00:00:00 08/20/2021 21:52:36 [id number] [facility] [place] [address] [facility] [address] [place] [address] 11/20/2021 00:00:00 11/23/2021 15:04:51 [id number] [facility] [place] [address] [place] [address] 12/25/2021 00:00:00 12/25/2021 10:43:51 [id number] [facility] [place] [address] [place] [address] 03/31/2022 00:00:00 03/31/2022 19:44:04 [id number] [facility] [place] [address] [place] [address] 04/15/2022 00:00:00 04/15/2022 21:14:45 [id number] Evelio Mckee MD [facility] [place] [address] [facility] [place] [address] 07/10/2022 12:08:35 07/10/2022 12:44:36 Cervical radiculopathy 36927039 M54.12 [id number] Evelio Mckee MD [facility] [place] [address] [facility] [place] [address] 10/30/2022 11:56:56 11/02/2022 08:33:55 Adult health examination 495629671 Z00.00 Screening for disorder 760146442 Z13.9 Anxiety disorder 8027691 06 F41.9 Diabetic p eripheral neuropathy 059109189 E11.40 Continue lyrica [id number] Eveloi Mckee MD [facility] [place] [address] [facility] [place] [address] 01/27/2023 15:19:36 01/27/2023 15:59:12 Pain of left hip joint 6857497261 38200 M25.552 Pain of ri ght knee joint 8598636530 73539 M25.561 Retention of urine 58102 4002 R33.9 See urologist [id number] CONNIE Tejada [facility] [place] [address] [place] [address] [place] [address] 10/28/2023 15:08:06 10/28/2023 15:55:28 Pressure injury 6949015205 L89.90 Anxiety 49666220 F41.9 Chronic low back pain 27 3114166 M54.50 Benign pro static hyperplasia 150369258 N40.1 Anemia 550918548 D64.9 Cervical radiculopathy 78473957 M54.12 Diabetic p eripheral neuropathy 366558288 E11.40 Essential hypertension 59841105 I10 Hypercholesterolemia 136 72226 E78.00 Impairment of balance 38 1159165 R26.89 Iron deficiency 34594653 E61.1 Mixed anxi ety and depressive disorder 718574345 F41.8 Neuropathy 646771234 G62 .9 [id number] CONNIE Tejada [facility] [place] [address] [facility] [place] [address] 11/22/2023 16:34:41 11/26/2023 15:10:25 Dysuria 71395121 R30.0 [id number] CONNIE Tejada [facility] [place] [address] [facility] [place] [address] 01/10/2024 09:22:32 01/10/2024 10:31:16 Insomnia 808154322 G47.00 Essential hypertension 40289242 I10 Open wound 768822830 T14 .8XXD Anemia 897370248 D64.9 Anxiety 63523908 F41.9 Benign pro static hyperplasia 685716380 N40.1 Cervical radiculopathy 36076168 M54.12 Chronic low back pain 27 6188207 M54.50 Diabetic p eripheral neuropathy 474882248 E11.40 Hypercholesterolemia 136 08344 E78.00 Health Concerns Section Related Observation LastModified by Organization Detai ls LastModified Time None Recorded Concern Status LastModified by Organization Details LastModified Time None Recorded Advance Directives Directive N: Payers Encounter Date Sequence Insurance Name Policy Number Policy [place] Covered Member ID [place] Member ID Guarantor Name 10/30/2022 1 [place] [employer] [place] [id number] [employer] 10/30/2022 2 [place] 33D [employer] [place] [id number] [employer] 01/27/2023 1 [place] [id number] [employer] [place] 01/27/2023 2 [place] 33D [employer] [place] [id number] [employer] [place] 10/28/2023 1 [place] [id number] [employer] [place] 10/28/2023 2 [place] 33D [employer] [place] [id number] [employer] [place] 11/22/2023 1 [place] [id number] [employer] [place] 11/22/2023 2 [place] 33D [employer] [place] [id number] [employer] 01/10/2024 1 [place] [id number] [employer] [place] 01/10/2024 2 [place] 33D [employer] [id number] [employer] Notes Date Note Type Note Provider Name and Address Organization Details Recorded Time 10/30/2022 text/html Here today for MWV. Has lost weight. Does not eat when not hungry.Has incontinence of urine. Has no control of Urine. It has caused a lot of problems from his neck Has herniation. Has surgery scheduled for 12/16/22 to fix this.Wants to increase alprazolam to 4 times a day. Has neuropathy and is worried about falling.Not due for BW. Last colonoscopy was within 5 years. Evelio Mckee MD [address], [place], [address], [employer] 10/31/2022 11:27:13 01/27/2023 text/html Here today for left hip pain. Right knee too. Has fallen 3 times since cervical spine surgery. Can not move left hip.Urinates the bed at night and takes meds at night and wets the bed. Used tamsulosin. Does not take muscle relaxers. Has an appt. with urologist on 02/12/23. Needs to see ortho for hip pain. Wants to see Dr. Tony in [place]. Evelio Mckee MD [address], [place], [address], [employer] 01/28/2023 09:24:19 10/28/2023 text/html since last January trouble urinating , sees urology , dinner plate size wound on buttocks , 12 treatments : wound care intermittent. cannot walk , cannot stand, he does not have a gutierrez cath in ... in a alf too long , no care. needs hip surgery. needs to lose 100 pounds CONNIE Tejada [address], [place], [address], [employer] 11/11/2023 11:18:54 01/10/2024 text/html recent neck surgery . liked the taper dose of prednisone better than the oxycodone . is seeing wound care in [place] , but too far a ride . is willing have the wound vac put back on CONNIE Tejada [address], [place], [address], [employer] 01/12/2024 14:23:48
--- OUTSIDE RECORDS SUMMARY | 2024-04-25 19:18 | XMS_ITS | Encounter Summary ---
Author Organization [facility] Address [address] [place] [address] Phone Care Team Providers Care Down Filler Name Role Phone Adrian Yanes MD Primary Care Provider [phone]- [phone] Evelio Mckee MD Primary Care Provider [phone]- [phone] Encounter Details Date Type Department Care Team (Late st Contact Info) Description 03/14/2013 Orders Only [facility] Shira James MD [address] [facility] [address] [place] [address] Social History Tobacco Use Types Packs/Day Years Used Date Smoking Tobacco: Former Sex and Gender Information Value Date Recorded Sex Assigned at Not on file Legal Sex Male 12:42 AM [employer] Gender Identity Not on file Sexual Orientation Not on file documented as of this encounter Plan of Treatment Not on file documented as of this encounter Procedures Procedure Name Priority Date/Time Associated Diagnosis Comments PROCEDURE REPORT 03/14/2013 documented in this encounter Results * PROCEDURE REPORT (03/14/2013) Shira James MD NURSING COMMUNICATION Rhoda peralta Result documented in this encounter Visit Diagnoses Not on filedocumented in this encounter Additional Health Concerns Infection Onset Date Last Indicated Resolved Time 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
--- OUTSIDE RECORDS SUMMARY | 2024-04-25 19:18 | XMS_ITS | Clinical Summary ---
Author Organization [facility] Address [address] [place] [address] Phone Care Team Providers Care Floor Covering Installer Name Role Phone Evelio Mckee MD Primary Care Provider [phone] Allergies Active Allergy Reactions Criticality Noted Date Comments Diclofenac Hives Medium 09/07/2019 Medications ALPRAZolam (XANAX) 0.25 MG tablet Take 0.5 mg by mouth 3 (three) times a day if needed 8 Active atenolol (TENORMIN) 25 MG tablet Take 1 tablet by mouth 1 (one) time each day Active cyclobenzaprin e (FLEXERIL) 10 MG tablet Take 1 tablet by mouth 3 times a day 9 Active Dupilumab (Dupixent) 300 MG/2ML solution prefilled syringe every 14 (fourteen) days 9 Active PARoxetine (PAXIL) 30 MG tablet Take 1 tablet by mouth 1 (one) time each day 8 Active simvastatin (ZOCOR) 20 MG tablet Take 1 tablet by mouth 1 (one) time each day Active traZODone (DESYREL) 150 MG tablet Take 1 tablet by mouth at bed time 8 Active triamcinolone (KENALOG) 0.1 % cream triamcinolone acetonide 0.1 % topical cream 8 Active albuterol HFA (PROVENTIL HFA;VENTOLIN HFA) 108 (90 Base) MCG/ACT inhaler Take 2 puffs by mouth every 4 (four) hours if needed Active Timolol Maleate 0.5 % (DAILY) solution timolol maleate 0.5 % eye drops 9 Active chlorhexidine (PERIDEX) 0.12 % solution Use 15 mL in the mouth or throat Active doxycycline (VIBRAMYCIN) 100 MG capsule Take 100 mg by mouth Take with a full glass of water and do not lie down for at least 30 minutes after. Active furosemide (LASIX) 20 MG tablet Take 20 mg by mouth 1 (one) time each day Active hydrocortisone 2.5 % cream Apply topically Ac tive losartan (COZAAR) 100 MG tablet Take 100 mg by mouth 1 (one) time each day Active mupirocin (BACTROBAN) 2 % ointment Apply topically Act lila oxybutynin XL (DITROPAN-XL) 5 MG 24 hr tablet Take 5 mg by mouth 1 (one) time each day Do not crush, chew, or split. Active oxyCODONE-acet aminophen (PERCOCET) 7.5-325 MG per tablet Take 1 tablet by mouth every 6 (six) hours if needed for moderate pain TAKE ONE TO TWO TABLETS BY MOUTH EVERY 6 HOURS NEEDED FOR PAIN (MAX OF 5 TABLETS PER DAY) Active phentermine (ADIPEX-P) 37.5 MG tablet Take 37.5 mg by mouth 1 (one) time each day Active pregabalin (LYRICA) 200 MG capsule Take 200 mg by mouth in the morning and 200 mg at noon and 200 mg in the evening. Active spironolactone (ALDACTONE) 50 MG tablet Take 50 mg by mouth 1 (one) time each day Active triamcinolone (KENALOG) 0.025 % cream Apply topically Active Active Problems Problem Noted Date Diagnosed Date Hypertension 07/03/2010 Immunizations Name Administration Dates Next Due Pneumococcal Conjugate 13-Valent 12/12/2018 Family History Medical History Relation Comments Cancer Maternal Grandfather Diabetes Paternal Grandmother Heart disease Sister Relation Status Comments Maternal Grandfather Paternal Grandmother Sister Social History Tobacco Use Types Packs/Day Years [...] Sign Reading Time Taken Comments Blood Pressure 170/98 10/20/2019 10:00 AM CDT Pulse 89 10/20/2019 10:00 AM CDT Temperature 36.6 ??C (97.8 ??F) 10/20/2019 10:00 AM C DT Respiratory Rate - - Oxygen Saturation 98% 10/20/2019 10:00 AM CDT Inhaled Oxygen Concentration - - Weight 140 kg (309 lb 8 oz) 10/20/2019 10:00 AM CDT Height 175.3 cm (5' 9) 10/20/2019 10:00 AM CDT Body Mass Index 45.71 10/20/2019 10:00 AM CDT Plan of Treatment Health Maintenance Due Date Last Done Comments Colorectal Cancer Screening: Annual FOBT 02/26/2008 Colorectal Cancer Screening: Colonoscopy 02/26/2008 Colorectal Cancer Screening: Sigmoidoscopy 02/26/2008 Pneumococcal Vaccine: 65+ Years (2 of 2 - PPSV23 or PCV20) 02/06/2019 12/12/2018 Pneumococcal Vaccine: Pediatrics (0 to 5 Years) and At-Risk Patients (6 to 64 Years) (2 of 2 - PPSV23 or PCV20) 02/06/2019 12/12/2018 Diabetes: Hemoglobin A1C 10/27/2023 12/18/2022 Diabetes: Ophthalmology Exam 10/27/202304/2018, 10/01/2017 Diabetes: Pedal Pulse Checked 10/27/2023 Diabetes: Sensory Foot Exam 10/27/2023 Diabetes: Visual Foot Exam 10/27/2023 Influenza Vaccine (#1) 2023 Hepatitis B Vaccine Aged Out No longe r eligible based on patient's age to complete this topic Insurance [facility] MEDICARE Care Teams Floor Covering Installer Relationship Specialty Start Date End Date Evelio Mckee MD [address] [place] [address] PCP - General Family Medicine 09/07/19
--- OUTSIDE RECORDS SUMMARY | 2024-04-25 19:18 | XMS_ITS | Encounter Summary ---
Author Organization [facility] Address [address] [place] [address]. [place], [place] [address] [place] [address] Care Team Providers Care Tubing Tester Name Role Phone SarabjitCora Hussein LONGORIA Primary Care Provider [phone] Reason for Visit * Auth/Cert (Routine) Specialty Diagnoses / Procedures Referred By Lokesh thompson Referred To Contact Home Health Services Referral ID Status Reason Start Date Expiration Date Visits Re quested Visits Authorized [id number] 1 1 Encounter Details Date Type Department Care Team (Late st Contact Info) Description 04/25/2024 11:00 AM PAINT MIXER MACHINE Home Care Visit [facility] [address] [place] [address] [place] [address] Flaca Rascon, RN [phone] (Work) CASE COMMUNICATION Social History Tobacco Use Types Packs/Day Years [...] Sex Assigned at Male 04/21/2024 1:44 PM PAINT MIXER MACHINE Legal Sex Male 5:52 PM CDT Gender Identity Male 04/21/2024 1:44 PM PAINT MIXER MACHINE Sexual Orientation Not on file documented as of this encounter Plan of Treatment Upcoming Encounters Date Type Department Care Team (Late st Contact Info) Description 05/03/2024 8:00 AM PAINT MIXER MACHINE Home Care Visit [address] [address] Flaca Rascon, RN [phone] (Work) 05/10/2024 8:00 AM PAINT MIXER MACHINE Home Care Visit [address] [address] Flaca Rascon, RN [phone] (Work) 05/17/2024 8:00 AM PAINT MIXER MACHINE Home Care Visit [address] [address] Flaca Rascon, RN [phone] (Work) 05/24/2024 8:00 AM PAINT MIXER MACHINE Home Care Visit [address] [address] Flaca Rascon, RN [phone] (Work) documented as of this encounter Visit Diagnoses Not on filedocumented in this encounter Additional Health Concerns Assessment Noted Time PHQ-9 Depression Total Score: 16 024 4:33 PM PAINT MIXER MACHINE documented as of this encounter Care Teams Tubing Tester Relationship Specialty Start Date End Date Cora Whipple DO [address] [place] [address] PCP - General FAMILY PRACTICE 03/16/24 documented as of this encounter
--- OUTSIDE RECORDS SUMMARY | 2024-04-25 19:18 | XMS_ITS | Encounter Summary ---
Author Organization [facility] Address [address] [place] [address] Care Team Providers Care Conveyor Mechanic Name Role Phone Evelio Mckee MD Primary Care Provider [phone] Encounter Details Date Type Department Care Team (Latest Contact Info) Description 02/26/1999 Outpatient Historical [facility] Ari Trevino MD [address] [place] [address] Postlaminectomy syndrome, unspecified region (Primary Dx) Social History Tobacco Use Types Packs/Day Years Used Date Smoking Tobacco: Never Assessed Sex and Gender Information Value Date Recorded Sex Assigned at Not on file Legal Sex Male 3:45 AM SEAM CHECKER Gender Identity Not on file Sexual Orientation Not on file documented as of this encounter Plan of Treatment Not on file documented as of this encounter Visit Diagnoses Diagnosis Postlaminectomy syndrome, unspecified region- Primary documented in this encounter Care Teams Conveyor Mechanic Relationship Specialty Start Date End Date Evelio Mckee MD PCP - General Family Practice 07/26/18 documented as of this encounter
--- OUTSIDE RECORDS SUMMARY | 2024-04-25 19:18 | XMS_ITS | Encounter Summary ---
Author Organization [facility] Address [address] [place] [address]. [place], [place] [address] [place] [address] Care Team Providers Care Vice Chancellor Name Role Phone Cora Whipple DO Primary Care Provider [phone] Reason for Visit * Reason Onset Date Comments Concerns 04/21/2024 Encounter Details Date Type Department Care Team (Late st Contact Info) Description 04/21/2024 Telephone [facility] - [place] [address] [place] [address] Cora Whipple DO [address] [place] [address] Concerns Social History Tobacco Use Types Packs/Day Years [...] Sex Assigned at Male 04/21/2024 1:44 PM LAP GRINDER Legal Sex Male 5:52 PM CDT Gender Identity Male 04/21/2024 1:44 PM LAP GRINDER Sexual Orientation Not on file documented as of this encounter Progress Notes * Halina Salter - 04/21/2024 2:44 PM CST The patient is wanting to know what to do about the pain he is having from this wound after home care came today and repacked th wound. The patient is asking for pain medication and a muscle relaxer. The patient was to have a virtual appointment today but does not have MyChart. GRINDER documented in this encounter Plan of Treatment Upcoming Encounters Date Type Department Care Team (Late st Contact Info) Description 05/03/2024 8:00 AM LAP GRINDER Home Care Visit [address] [place] [address] Flaca Rascon RN [phone] (Work) 05/10/2024 8:00 AM LAP GRINDER Home Care Visit [address] [address] Flaca Rascon RN [phone] (Work) 05/17/2024 8:00 AM LAP GRINDER Home Care Visit [address] [place] [place] [address] [place] [address] Flaca Rascon RN [phone] (Work) 05/24/2024 8:00 AM LAP GRINDER Home Care Visit [address] [place] [address] [place] [address] Flaca Rascon, RN [phone] (Work) documented as of this encounter Visit Diagnoses Not on filedocumented in this encounter Additional Health Concerns Assessment Noted Time PHQ-9 Depression Total Score: 16 024 4:33 PM LAP GRINDER documented as of this encounter Care Teams Vice Chancellor Relationship Specialty Start Date End Date Cora Whipple DO [address] [place] [address] PCP - General FAMILY PRACTICE 03/16/24 documented as of this encounter
--- OUTSIDE RECORDS SUMMARY | 2024-04-25 19:18 | XMS_ITS | Encounter Summary ---
Author Organization [email or web address] Address [address] [place] [address] Care Team Providers Care Director Immunology Name Role Phone Evelio Mckee MD Primary Care Provider [phone] Encounter Details Date Type Department Care Team (Latest Contact Info) Description 03/07/1999 Outpatient Historical [facility] Ari Trevino MD [address] [place] [address] Displacement of lumbar intervertebral disc without myelopathy (Primary Dx) Social History Tobacco Use Types Packs/Day Years Used Date Smoking Tobacco: Never Assessed Sex and Gender Information Value Date Recorded Sex Assigned at Not on file Legal Sex Male 3:45 AM CUSTOMER GREETER Gender Identity Not on file Sexual Orientation Not on file documented as of this encounter Plan of Treatment Not on file documented as of this encounter Visit Diagnoses Diagnosis Displacement of lumbar intervertebral disc without myelopathy- Primary documented in this encounter Care Teams Director Immunology Relationship Specialty Start Date End Date Evelio Mckee MD PCP - General Family Practice 07/26/18 documented as of this encounter
--- NOTE | 2024-04-25 20:33 | PM.IMHP ---
H&P: HPI History of Present Illness Date/Time: 04/25/24 20:33 Chief Complaint: Back pain Narrative: This is a 64-year-old male with past medical history significant for morbid obesity, chronic sacral decubitus ulcer, bedbound, status post colostomy, chronic indwelling Durant catheter, depression with anxiety, gout, obstructive sleep apnea on CPAP, hypertension. 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 Was brought to the emergency room for evaluation due to worsening pain in the decubitus ulcer area rate set at 10/10 intensity only alleviated by pain medication. Patient denies any nausea, vomiting, no fevers, no chills no rigors, no discharge from the wound. Patient has been placed in observation for further evaluation management and treatment. Review of Systems Review of Systems: Worsening pain in the decubitus ulcer area, sacral area PMFSH Past Medical History Medical History Alcohol abuse Hydronephrosis Urinary retention Chronic pain syndrome Chronic kidney disease History of meningitis Depression with anxiety Legally blind Left eye History of GI bleed Gout Peripheral neuropathy YOSEPH on CPAP Hypertension Hyperlipidemia Surgical History Surgical History H/O Spinal surgery L3 through L5 laminectomy with fusion H/O hand surgery H/O inguinal hernia repair H/O cataract extraction History of tonsillectomy Family History Family History Mother Patient's mother is in good health Father Patient's father is Congestive heart failure Acute myocardial infarction Hypertension Grandparent Cerebrovascular accident Cancer Unknown No problems noted. Sibling Hypertension Sibling Hypertension Social History Social History Social History: The patient lives home alone. He is a former smoker. The patient used to be heavy smoker smoking up to 2-3 packs of cigarettes for several years. The patient was known to drink 8-10 beers a day, states he drinks less than that now and not every day. He is retired and disabled in 1979. His mother Zita leonard is his contact center engineer. Code status: DNR/DNI Smoking packs per day: 3 Smoking cigarettes per day: 60.0 Years smoked: 15 Smoking pack-years: 45.00 Smoking status: Former smoker Tobacco type: cigarettes Smokeless tobacco user: chewing tobacco Second hand tobacco smoke exposure: No Additional smoking assessment comments: CURRENT: SMOKELESS TOBACCO (01/2023) Alcohol intake: never Substance use: never Substance use type: does not use Other substance usage details: oxycodone Last use: t-1 Do You Feel Safe in your Home?: Yes Lack of Transportation: YES Lack of Food: Never True Current Housing: I Have Housing Concerned About Future Housing: No Difficulty Paying Gas/Electric Bills: No Difficulty Paying for Meds: No Currently Unemployed: No Education: High School Diploma/GED Difficulty w/ Childcare or Family Care: No Occupation/Education: retired Additional occupation/education comments: Retired [employer] Gender identity (if verbalized by the patient): Male Spiritual care concerns: No Meds Home Medications and Allergies Home Medications ?Medication ?Instructions ?Recorded ?Confirmed ?Type paroxetine HCl 30 mg tablet 30 mg PO HS 09/15/22 04/25/24 History multivitamin with minerals 1 tablet PO DAILY 04/14/23 04/25/24 History (Multiple Vitamin-Minerals tablet) acetaminophen 325 mg capsule 650 mg PO Q4H PRN pain fever 09/27/23 04/25/24 History (Tylenol) cyclobenzaprine 10 mg tablet 10 mg PO DAILY 04/25/24 04/25/24 History oxycodone 10 mg tablet 10 mg PO Q12H PRN pain 04/25/24 04/25/24 History pregabalin 150 mg capsule 300 mg PO HS 04/25/24 04/25/24 History simvastatin PO DAILY 04/25/24 History tamsulosin 0.4 mg capsule 0.4 mg PO DAILY 04/25/24 04/25/24 History timolol maleate 0.5 % eye drops 1 drp RIGHT EYE QAM 04/25/24 04/25/24 History Allergies Allergy/AdvReac Type Severity Reaction Status Date / Time allopurinol Allergy Unknown Rash Verified 10/17/23 14:41 carbamazepine Allergy Unknown Rash Verified 10/17/23 14:41 cyclobenzaprine Allergy Unknown Rash Verified 10/17/23 14:41 diclofenac Allergy Unknown Rash Verified 10/17/23 14:41 adhesive tape Allergy Rash Verified 10/17/23 14:41 Vital Signs Vital Signs - 24 hr 04/25/24 17:59 Temperature 97.8 F Pulse Rate 125 H Respiratory Rate 22 H Blood Pressure 141/68 H Pulse Oximetry 98 Oxygen Delivery Room Air Exam Narrative: Patient laying in a stretcher Const: General: comfortable, no acute distress, well developed, alert, awake, ill appearing chronically and obese Nutritional Appearance: obese morbidly obese Orientation/consciousness: patient oriented x3 HENMT: Head: normal to inspection, normocephalic and atraumatic Ears: hearing grossly normal bilaterally Face/Nose/Sinus: normal facial exam Face and sinus: normal facial exam Eyes: General: appearance normal, both eyes and all related structures Pupils: Equal, round and reactive pupils present EOM: EOMs intact bilaterally Neck: Neck: full ROM, no lymphadenopathy and no JVD Thyroid: thyroid normal Lymphatic: no lymphadenopathy noted Resp: Effort & Inspection: normal respiratory effort and able to speak in complete sentences Auscultation: clear to auscultation bilaterally Cardio: Jugular venous distension: no JVD Rate: regular rate Rhythm: regular rhythm Heart sounds: S1 normal heart sound present and S2 normal heart sound present GI: Inspection: Pannus present, obesity and other (Colostomy in place) GI Palp: Yes Soft to palpation and Yes No hepatosplenomegaly present : General: Yes deferred Other: Durant catheter in Back/Spine/Pelvis: Sacrum: other (Wound) Skin: Rashes: no rashes Wounds: wounds noted (Sacral area) Neuro: General: patient oriented x3 and CN's II-XI intact bilaterally Cranial nerves: Yes CN's II-XII intact bilaterally and Yes Equal, round and reactive pupils present Cognition (Neuro): normal cognition Speech: normal speech Gait exam (Neuro): Unable to assess gait Other: Patient is bedbound Extrem: General: normal to inspection, full ROM, no joint enlargement and no pedal edema Assessment and Plan Assessment and plan (1) Decubitus ulcer of sacral region, stage 4: Code(s): L89.154 - Pressure ulcer of sacral region, stage 4 Status: Acute Assessment and Plan: Admit to regular medical floor Wound care and ostomy consult Local care Supportive care (2) Chronic venous stasis dermatitis of both lower extremities: Code(s): I87.2 - Venous insufficiency (chronic) (peripheral) Status: Acute Assessment and Plan: Compression stockings (3) Morbid obesity with BMI of 40.0-44.9, adult: Code(s): E66.01 - Morbid (severe) obesity due to excess calories; Z68.41 - Body mass index [BMI] 40.0-44.9, adult Status: Acute Assessment and Plan: 1800 calorie restricted diet (4) Chronic kidney disease, stage 3: Code(s): N18.30 - Chronic kidney disease, stage 3 unspecified Status: Chronic Assessment and Plan: Continue to monitor BUN and creatinine (5) Gout: Code(s): M10.9 - Gout, unspecified Status: Acute Assessment and Plan: Stable (6) Generalized muscle weakness: Code(s): M62.81 - Muscle weakness (generalized) Status: Acute Assessment and Plan: Unchanged (7) Peripheral neuropathy: Code(s): G62.9 - Polyneuropathy, unspecified Status: Acute Assessment and Plan: Unchanged (8) Chronic pain syndrome: Code(s): G89.4 - Chronic pain syndrome Status: Chronic Assessment and Plan: Continue pain medication (9) YOSEPH on CPAP: Code(s): G47.33 - Obstructive sleep apnea (adult) (pediatric) Status: Acute Assessment and Plan: Continue CPAP (10) Depression with anxiety: Code(s): F41.8 - Other specified anxiety disorders Status: Acute Assessment and Plan: Continue SSRI Hospitalist MIPS Advance Care Plan I have confirmed that the patient's Advanced Care Plan is present, code status is documented, or surrogate decision maker is listed in patient medical record.: Yes Medication Reconciliation I have utilized all available resources to obtain, update and review the patients current medications (includes all prescriptions, OTC, herbals, cannabis, and nutritional supplements).: Yes
[2024-04-25] MEDS: fentaNYL (*CRX) 75 MCG PATCH TRANSDERM (20:57)
[2024-04-25 21:08] VITALS: BP 139/88; PULSE 120; RESP 18; O2SAT 99
--- NOTE | 2024-04-25 22:30 | ADMGEN ---
This patient, Nura North, was admitted to [address] [place] [address] Room [facility] [place] at 22:30. Patient/family oriented to hospital policies and general routines including ID bracelet, bed and alarms, visiting hours, pain management, procedures, bathroom and other care routines, personal items, smoking policy, room service/diet, and visiting hours. Information on how to activate the Rapid Response Team has been discussed. Patient/Family are encouraged to report perceived risks to care and to ask questions if they do not understand what they are told or what they should do.
[2024-04-25 22:42] VITALS: BMI 38.5
[2024-04-25 22:43] VITALS: BP 122/75; PULSE 130; RESP 18; TEMP 36.4; O2SAT 99
--- NOTE | 2024-04-25 22:45 | PC.NURSE ---
pt informed we would have to take a picture of the wound on his buttocks. patient became angry and shouted that we are not treating his wound or doing anything to it. patient is refusing wound photos at this time.
[2024-04-25] MEDS: PREGABALIN (*CRX) 75 MG CAPSULE 300 MG PO (23:20)
--- NOTE | 2024-04-25 23:43 | PC.NURSE ---
Pt refused to have wound photos stated that he could not tolerate it at this time, attempted to explain need to change dressing and to have documentation of photos but patient refused. Pt also refused to have gutierrez cath changed. Pt instructed on infection risk and need to have it changed but he refuses to have it changed at this time.
[2024-04-26] MEDS: HYDROmorphone HCL INJ (*CRX) 1 MG/ML SYR IV PUSH ×6 (03:02→23:56)
[2024-04-26 04:14] VITALS: BP 110/77; PULSE 99; RESP 18; TEMP 36.2; O2SAT 98
--- NOTE | 2024-04-26 04:46 | PC.NURSE ---
pt expressing to this RN that he believes he has a UTI that he would like treated, but he does not want his catheter changed out because it's not a comfortable procedure and he has a nurse that changes it monthly on the . Pt educated on importance of CAUTI prevention and treatment, however patient still refuses at this time. patient also states he does not believe his wound is infected and he does not want any wound treatment from us, but he does want antibiotics for his UTI and pain medication. patient refusing to be repositioned, including floating heels off bed.
[2024-04-26] MEDS: TIMOLOL MALEATE 0.5% OP SOLN 5 ML BOTTLE 1 DROP RIGHT EYE (10:15)
[2024-04-26] MEDS: TAMSULOSIN HCL 0.4 MG CAPSULE PO (10:15)
[2024-04-26] MEDS: CYCLOBENZAPRINE HCL 10 MG TABLET PO (10:15)
[2024-04-26] MEDS: LIDOCAINE 2% GEL UROJET 10 ML PKG MUCOUS MEM (10:16)
[2024-04-26 14:00] VITALS: BP 120/58; PULSE 89; RESP 18; TEMP 36.6; O2SAT 98
--- NOTE | 2024-04-26 14:46 | P.PNIM_ITS ---
Progress Note: A&P Assessment and Plan (1) Decubitus ulcer of sacral region, stage 4: Code(s): L89.154 - Pressure ulcer of sacral region, stage 4 Status: Acute Assessment and Plan: Admit to regular medical floor Wound care and ostomy consult Local care Supportive care (2) Chronic venous stasis dermatitis of both lower extremities: Code(s): I87.2 - Venous insufficiency (chronic) (peripheral) Status: Acute Assessment and Plan: Compression stockings (3) Morbid obesity with BMI of 40.0-44.9, adult: Code(s): E66.01 - Morbid (severe) obesity due to excess calories; Z68.41 - Body mass index [BMI] 40.0-44.9, adult Status: Acute Assessment and Plan: 1800 calorie restricted diet (4) Chronic kidney disease, stage 3: Code(s): N18.30 - Chronic kidney disease, stage 3 unspecified Status: Chronic Assessment and Plan: Continue to monitor BUN and creatinine (5) Gout: Code(s): M10.9 - Gout, unspecified Status: Acute Assessment and Plan: Stable (6) Generalized muscle weakness: Code(s): M62.81 - Muscle weakness (generalized) Status: Acute Assessment and Plan: Unchanged (7) Peripheral neuropathy: Code(s): G62.9 - Polyneuropathy, unspecified Status: Acute Assessment and Plan: Unchanged (8) Chronic pain syndrome: Code(s): G89.4 - Chronic pain syndrome Status: Chronic Assessment and Plan: Continue pain medication (9) YOSEPH on CPAP: Code(s): G47.33 - Obstructive sleep apnea (adult) (pediatric) Status: Acute Assessment and Plan: Continue CPAP (10) Depression with anxiety: Code(s): F41.8 - Other specified anxiety disorders Status: Acute Assessment and Plan: Continue SSRI Time Spent With Patient Time with patient: 25 - 35 minutes Subjective Date/time seen: 04/26/24 14:46 Interval history: Back pain Narrative: This is a 64-year-old male with past medical history significant for morbid obesity, chronic sacral decubitus ulcer, bedbound, status post colostomy, chronic indwelling Durant catheter, depression with anxiety, gout, obstructive sleep apnea on CPAP, hypertension. [facility] is a [facility]. Was brought to the emergency room for evaluation due to worsening pain in the decubitus ulcer area rate set at 10/10 intensity only alleviated by pain medication. Patient denies any nausea, vomiting, no fevers, no chills no rigors, no discharge from the wound. Patient has been placed in observation for further evaluation management and treatment. He is tired of having pain and ready for hospice. He has a wound that he refused wound care nurse to assess but later RN was able to see and take pics. Pain control for now and will work with care coordination for hospice for pt's wishes. Review of Systems Review of Systems: Worsening pain in the decubitus ulcer area, sacral area Exam Narrative: Patient laying in a stretcher Const: General: comfortable, no acute distress, well developed, alert, awake, ill appearing chronically and obese Nutritional Appearance: obese morbidly obese Orientation/consciousness: patient oriented x3 HENMT: Head: normal to inspection, normocephalic and atraumatic Ears: hearing grossly normal bilaterally Face/Nose/Sinus: normal facial exam Face and sinus: normal facial exam Eyes: General: appearance normal, both eyes and all related structures Pupils: Equal, round and reactive pupils present EOM: EOMs intact bilaterally Neck: Neck: full ROM, no lymphadenopathy and no JVD Thyroid: thyroid normal Lymphatic: no lymphadenopathy noted Resp: Effort & Inspection: normal respiratory effort and able to speak in complete sentences Auscultation: clear to auscultation bilaterally Cardio: Jugular venous distension: no JVD Rate: regular rate Rhythm: regular rhythm Heart sounds: S1 normal heart sound present and S2 normal heart sound present GI: Inspection: Pannus present, obesity and other (Colostomy in place) : General: Yes deferred Other: Durant catheter in Back/Spine/Pelvis: Sacrum: other (Wound) Skin: General skin exam: wounds noted (Sacral area) Rashes: no rashes Wounds: wounds noted (Sacral area) Neuro: General: patient oriented x3, CN's II-XI intact bilaterally and Unable to assess gait Cranial nerves: Yes CN's II-XII intact bilaterally and Yes Equal, round and reactive pupils present Cognition (Neuro): normal cognition Speech: normal speech Gait exam (Neuro): Unable to assess gait Other: Patient is bedbound Extrem: General: normal to inspection, full ROM, no joint enlargement and no pedal edema Objective Data Vital Signs Vital Signs: Vital Signs - 24 hr 04/25/24 17:59 04/25/24 21:08 04/25/24 22:01 Temperature 97.8 F Pulse Rate 125 H 120 H Respiratory Rate 22 H 18 Blood Pressure 141/68 H 139/88 Pulse Oximetry 98 99 Oxygen Delivery Room Air Room Air 04/25/24 22:43 04/26/24 04:14 04/26/24 10:15 Temperature 97.6 F 97.1 F L Pulse Rate 130 H 99 Respiratory Rate 18 18 Blood Pressure 122/75 110/77 Pulse Oximetry 99 98 Oxygen Delivery Room Air 04/26/24 14:00 Temperature 97.8 F Pulse Rate 89 Respiratory Rate 18 Blood Pressure 120/58 L Pulse Oximetry 98 Oxygen Delivery Intake/Output Intake/Output: Intake & Output 04/23/24 04/24/24 04/25/24 04/26/24 23:59 23:59 23:59 23:59 Intake Total 730 Output Total 450 Balance 280 Meds/Results Medications: Active Medications Generic Name Dose Route Start Last Admin Trade Name Freq PRN Reason Stop Dose Admin Acetaminophen 650 mg 04/26/24 00:59 Acetaminophen 325 Mg Tablet PO Q4H PRN pain 1-3, fever Cyclobenzaprine HCl 10 mg 04/26/24 09:00 04/26/24 10:15 Cyclobenzaprine Hcl 10 Mg Tablet PO 10 mg DAILY ANNE Administration Fentanyl 75 mcg 04/25/24 19:40 04/25/24 20:57 Fentanyl (*Crx) 75 Mcg Patch TRANSDERM 75 mcg Q72HR ANNE Administration Hydromorphone HCl 1 mg 04/25/24 19:10 04/26/24 10:15 Hydromorphone Hcl Inj (*Crx) 1 Mg/Ml Syr IV PUSH 1 mg Q4H PRN Administration Pain Rated 7-10 Hydromorphone HCl 1 mg 04/25/24 23:03 04/26/24 06:43 Hydromorphone Hcl Inj (*Crx) 1 Mg/Ml Syr IV PUSH 1 mg Q3H PRN Administration Pain Rated 7-10 Oxycodone HCl 10 mg 04/25/24 23:01 04/26/24 14:38 Oxycodone Hcl (*Crx) 5 Mg Tab Ir PO 10 mg Q12H PRN Administration PAIN RATED 7-10 Paroxetine HCl 30 mg 04/26/24 21:00 Paroxetine 10 Mg Tablet PO HS ANNE Pregabalin 300 mg 04/25/24 23:15 04/25/24 23:20 Pregabalin (*Crx) 75 Mg Capsule PO 300 mg HS ANNE Administration Tamsulosin HCl 0.4 mg 04/26/24 09:00 04/26/24 10:15 Tamsulosin Hcl 0.4 Mg Capsule PO 0.4 mg DAILY ANNE Administration Timolol Maleate 1 drop 04/26/24 09:00 04/26/24 10:15 Timolol Maleate 0.5% Op Soln 5 Ml Bottle RIGHT EYE 1 drop QAM ANNE Administration Tramadol HCl 50 mg 04/25/24 23:01 Tramadol Hcl (*Crx) 50 Mg Tablet PO Q4H PRN PAIN RATED 4-6
[2024-04-26 20:00] VITALS: O2SAT 98
[2024-04-26] MEDS: PREGABALIN (*CRX) 75 MG CAPSULE 300 MG PO (20:22)
[2024-04-26] MEDS: PARoxetine 10 MG TABLET 30 MG PO (20:23)
[2024-04-26 22:00] VITALS: BP 115/66; PULSE 98; RESP 18; TEMP 36.6; O2SAT 100
[2024-04-27 04:26] VITALS: BP 143/78; PULSE 88; RESP 16; TEMP 36.6; O2SAT 100
[2024-04-27] MEDS: HYDROmorphone HCL INJ (*CRX) 1 MG/ML SYR IV PUSH ×3 (04:39→14:02)
[2024-04-27] MEDS: CYCLOBENZAPRINE HCL 10 MG TABLET PO (08:50)
[2024-04-27] MEDS: TAMSULOSIN HCL 0.4 MG CAPSULE PO (08:50)
[2024-04-27] MEDS: TIMOLOL MALEATE 0.5% OP SOLN 5 ML BOTTLE 1 DROP RIGHT EYE (08:50)
[2024-04-27 10:28] VITALS: BMI 38.5
--- NOTE | 2024-04-27 11:49 | P.DS_ITS ---
DS: Admitting Diagnosis Discharge Date 04/27 Admitting Diagnosis pain- decub ulcer DS: Discharge Diagnosis Discharge Diagnosis (1) Decubitus ulcer of sacral region, stage 4: Code(s): L89.154 - Pressure ulcer of sacral region, stage 4 Status: Acute (2) Chronic venous stasis dermatitis of both lower extremities: Code(s): I87.2 - Venous insufficiency (chronic) (peripheral) Status: Acute (3) Morbid obesity with BMI of 40.0-44.9, adult: Code(s): E66.01 - Morbid (severe) obesity due to excess calories; Z68.41 - Body mass index [BMI] 40.0-44.9, adult Status: Acute (4) Chronic kidney disease, stage 3: Code(s): N18.30 - Chronic kidney disease, stage 3 unspecified Status: Chronic (5) Gout: Code(s): M10.9 - Gout, unspecified Status: Acute (6) Generalized muscle weakness: Code(s): M62.81 - Muscle weakness (generalized) Status: Acute (7) Peripheral neuropathy: Code(s): G62.9 - Polyneuropathy, unspecified Status: Acute (8) Chronic pain syndrome: Code(s): G89.4 - Chronic pain syndrome Status: Chronic (9) YOSEPH on CPAP: Code(s): G47.33 - Obstructive sleep apnea (adult) (pediatric) Status: Acute (10) Depression with anxiety: Code(s): F41.8 - Other specified anxiety disorders Status: Acute DS: Summary Hospital Course Hospital Course: This is a 64-year-old male with past medical history significant for morbid obesity, chronic sacral decubitus ulcer, bedbound, status post colostomy, chronic indwelling Durant catheter, depression with anxiety, gout, obstructive sleep apnea on CPAP, hypertension. Patient is a longterm resident. Was brought to the emergency room for evaluation due to worsening pain in the decubitus ulcer area rate set at 10/10 intensity only alleviated by pain m edication. Patient denies any nausea, vomiting, no fevers, no chills no rigors, no discharge from the wound. Patient has been placed in observation for further evaluation management and treatment. He is tired of having pain and ready for hospice. PT had been having a lot of issues with pain as the pain management was not adequate for him. Pain control for now and will work with care coordination for hospice for pt's wishes. He us currently on fentanyl patch (applied on 04/25), tramadol, 50 mg q4h prn, lyrica 300 mg hs. Will continue regimen for now and send enough refill to last few days until seen and evaluated per hospice. Pt is aware of risk of respiratory distress if taking too much pain medication. Narcan will be sent to pt's pharmacy. Care coordination worked with pt and set up [facility] care- hospice care for home. He is stable to be discharged with a f/u with hospice and PCP. Status at Discharge Functional status at discharge: bed bound Overall status at discharge: patient is back to baseline Time Spent with Patient Time attestation: Total time spent providing and/or coordinating discharge services: Time spent: Greater than 30 minutes Exam Narrative: Patient laying in a stretcher Const: General: comfortable, no acute distress, well developed, alert, awake, ill appearing chronically and obese Nutritional Appearance: obese morbidly obese Orientation/consciousness: patient oriented x3 HENMT: Head: normal to inspection, normocephalic and atraumatic Ears: hearing grossly normal bilaterally Face/Nose/Sinus: normal facial exam Face and sinus: normal facial exam Eyes: General: appearance normal, both eyes and all related structures Pupils: Equal, round and reactive pupils present EOM: EOMs intact bilaterally Neck: Neck: full ROM, no lymphadenopathy and no JVD Thyroid: thyroid normal Lymphatic: no lymphadenopathy noted Resp: Effort & Inspection: normal respiratory effort and able to speak in complete sentences Auscultation: clear to auscultation bilaterally Cardio: Jugular venous distension: no JVD Rate: regular rate Rhythm: regular rhythm Heart sounds: S1 normal heart sound present and S2 normal heart sound present GI: Inspection: Pannus present, obesity and other (Colostomy in place) : General: Yes deferred Other: Durant catheter in Back/Spine/Pelvis: Sacrum: other (Wound) Skin: General skin exam: wounds noted (Sacral area) Rashes: no rashes Wounds: wounds noted (Sacral area) Neuro: General: patient oriented x3, CN's II-XI intact bilaterally and Unable to assess gait Cranial nerves: Yes CN's II-XII intact bilaterally and Yes Equal, round and reactive pupils present Cognition (Neuro): normal cognition Speech: normal speech Gait exam (Neuro): Unable to assess gait Other: Patient is bedbound Extrem: General: normal to inspection, full ROM, no joint enlargement and no pedal edema DS: Data Data Completed and Pending Completed studies during hospitalization: na Discharge Plan Discharge Attending physician on discharge: Alfonso Ledesma Discharging Clinician: Liseth Skinner Patient Disposition: Home Health Service Activity: may shower Diet: as tolerated and regular Discharge Instructions: Pt. is current with [facility] Home Health for RN visits to manage wound. [phone] RN please fax completed discharge instructions to [phone] Patient Instructions: Antibiotic Form Patient Language: Ivorian Stand Alone Forms: General Discharge Information Follow-up/Referrals: Sarabjit,Cora Goodwin DO [Primary Care Provider] - 2 Weeks Discharge Medications: New tramadol 50 mg Tablet 50 mg PO Q4H PRN (Reason: PAIN RATED 4-6) Qty: 12 0RF fentanyl 75 mcg/hr patch 72 hour 1 patch transdermal Q72H Qty: 5 0RF Rx Instructions: last applied on 04/25 naloxone [Narcan] 4 mg/actuation spray,non-aerosol 4 mg intranasal Q3M PRN (Reason: opioid overdose) Qty: 2 0RF Rx Instructions: spray 1 dose into ONE nostril; alternate nostrils w each dose until help arrives Continued Multiple Vitamin-Minerals Tablet 1 tablet PO DAILY acetaminophen [Tylenol] 325 mg Capsule 650 mg PO Q4H PRN (Reason: pain fever) paroxetine HCl 30 mg tablet 30 mg PO HS cyclobenzaprine 10 mg tablet 10 mg PO DAILY pregabalin 150 mg capsule 300 mg PO HS tamsulosin 0.4 mg capsule 0.4 mg PO DAILY timolol maleate 0.5 % Drops 1 drp RIGHT EYE QAM Discontinued oxycodone 10 mg tablet 10 mg PO Q12H PRN (Reason: pain) simvastatin See Rx Instructions .ROUTE .COMPLEX Rx Instructions: patient does not know dose of medicatoin; Date of admission: 04/26/24 09:32 Primary Care Provider: SarabjitCora Admitting Provider: Last Robison Attending physician on admission: Last Robison Condition: Guarded Prognosis Hospitalist MIPS Heart Failure (Exclusion) Patient has history of Heart Transplant or Left Ventricular Assistive Device?: No IF YES, STOP HERE Heart Failure (Qualifier) Patient has current or prior documentation of LVEF less than or equal to 40%, or mod/servere depressed LVSF?: No IF NO, STOP HERE
[2024-04-27 14:00] VITALS: BP 118/74; PULSE 85; RESP 13; TEMP 36.3; O2SAT 100
== END 2024-04-27 17:05 | disposition home health service (06) | DRG 594 ==
LOC: ANHED 19:16 → ANH3MED 21:27
PROVIDERS: Admitting Provider Internal Medicine; Emergency Provider Emergency Medicine; PCP Family Medicine; Visit Provider Nurse Practitioner
DX: L89.154 Pressure ulcer of sacral region, stage 4 (principal); I12.9 Hypertensive chronic kidney disease with stage 1 through stage 4 chronic kidney disease, or unspecified chronic kidney disease; N18.30 Chronic kidney disease, stage 3 unspecified; G62.9 Polyneuropathy, unspecified; G47.33 Obstructive sleep apnea (adult) (pediatric); E78.5 Hyperlipidemia, unspecified; H54.8 Legal blindness, as defined in USA; I87.2 Venous insufficiency (chronic) (peripheral); F41.8 Other specified anxiety disorders; M10.9 Gout, unspecified; G89.4 Chronic pain syndrome; E66.01 Morbid (severe) obesity due to excess calories; Z93.3 Colostomy status; Z51.5 Encounter for palliative care; Z68.38 Body mass index [BMI] 38.0-38.9, adult; Z74.01 Bed confinement status; Z98.1 Arthrodesis status; Z98.49 Cataract extraction status, unspecified eye; Z87.891 Personal history of nicotine dependence
CPT/HCPCS: 96374; 96375; 99285; A9270; G0378; J1171